=== PATIENT | male | born 1940 | race Caucasian/White ===

== ENCOUNTER 2018-03-01 12:58 | Emergency (ER) | payer MEDICARE, BC, SELFPAY ==
[2018-03-01 12:59] VITALS: BP 170/94; PULSE 72; RESP 16; TEMP 36.9; O2SAT 97; BMI 30.4
[2018-03-01] MEDS: Tetracaine/Benzocaine/Butamben 1 APPLIC TOPICAL (13:30)
[2018-03-01] MEDS: Oxymetazoline 0.05% 1 SPRAY SPRAY.BTL 2 SPRAY NASAL (13:30)
[2018-03-01 15:00] VITALS: BP 194/88; PULSE 64; RESP 18; O2SAT 98
[2018-03-01 15:27] VITALS: BP 200/90
[2018-03-01] MEDS: hydrALAZINE 20 MG/ML Vial 10 MG IV ×2 (15:31→16:12)
--- NOTE | 2018-03-01 15:48 | ED.DCSUM_ITS ---
- ER Visit Summary Date of Service: 03/01/18 Chief Complaint: Nosebleed History of Present Illness: The patient is a 77 M reports intermittent nosebleed for the last 3 days. Patient states it starts in the left. Today it was coming out of both nares. He denies any recent URI symptoms. He does take baby aspirin daily. Physical Examination: Vital signs include a blood pressure of 170/94, temperature 98.5, heart rate 72, respiratory rate 16, pulse ox 97% on room air. Patient sitting upright in bed. He has a nasal clip in place. Head and neck examination reveals small amount of blood in the posterior pharynx. Heart is regular rate and rhythm. Lung sounds are clear. Abdomen is soft nontender. Test Results: [] Emergency Department Course and Treatment: Nasal clip was removed and a cotton ball soaked in Afrin and Cetacaine was placed into the left nare. Following removal of this examination with otoscope reveals a small amount of blood along the medial wall proximally of the left nare. There is no focal bleeding site appreciated. Nasal turbinates are irritated. Right nare is clear. A 5.5 cm Rhino Rocket was placed in the left nare. Bleeding is controlled. He is able to ambulate. Blood pressure has continued to be elevated, up to 200 systolic. Patient is given 10 mg of IV hydralazine. Patient initially had blood pressure come down to the 175-180 range. He did tell the nurse that he was feeling anxious. She was given additional 10 mg of IV hydralazine and 0.5 mg p.o. Ativan. At this time systolic blood pressure is 160. To be discharged home. He is to check his blood pressure daily. He was taken off of hydrochlorothiazide recently because his blood pressures were dropping too low. If his pressures are elevated he has this medication at home he can take. Treatment Plan: Patient is to follow-up with ENT in 3 days. He will be covered with Augmentin in the meantime. Disposition: Discharge Impression: 1. Epistaxis status post nasal packing 2. Hypertension This note was generated with [employer] software. It may contain incorrect words, spelling, and punctuation that were not noted in review of the chart prior to signing ED Disposition - Plan for ED Patient: Disposition: Home or Assisted Living Chief Complaint: Nosebleed Instructions: Nosebleed Prescriptions: Amox/Clavulanate Tablet [Augmentin Tablet] 875 mg PO Q12H #6 tab Referrals: Cedric Keita MD [STAFF PHYSICIAN] - 3-5 Days Alonso Wheat MD [Primary Care Provider] - Additional Instructions: Call ENT tomorrow for appointment in 3 days.
--- NOTE | 2018-03-01 15:48 | ED.DEP ---
ED Disposition - Plan for ED Patient: Disposition: Home or Assisted Living Chief Complaint: Nosebleed Instructions: Nosebleed Prescriptions: Amox/Clavulanate Tablet [Augmentin Tablet] 875 mg PO Q12H #6 tablet Referrals: Alonso Wheat MD [Primary Care Provider] - Cedric Keita MD [STAFF PHYSICIAN] - 3-5 Days Additional Instructions: Call ENT tomorrow for appointment in 3 days.
[2018-03-01 16:11] LABS: Bedside Glucose 124 mg/dL (70-110)
[2018-03-01] MEDS: LORazepam 0.5 MG Tablet PO (16:11)
[2018-03-01 16:15] VITALS: BP 177/85
[2018-03-01 16:51] VITALS: BP 153/72; PULSE 90; RESP 14; O2SAT 98
== END 2018-03-01 16:52 | disposition home or self-care (01) ==
PROVIDERS: Emergency Provider Emergency Medicine; Family Provider Internal Medicine; PCP Internal Medicine
DX: R04.0 Epistaxis (principal); I10 Essential (primary) hypertension; C61 Malignant neoplasm of prostate; M54.9 Dorsalgia, unspecified; I42.2 Other hypertrophic cardiomyopathy; Z79.82 Long term (current) use of aspirin; Z79.899 Other long term (current) drug therapy
CPT/HCPCS: 30905; 82962; 96374; 96376; 99284; A4216

== ENCOUNTER 2018-03-06 19:15 | Emergency (ER) | payer MEDICARE, BC, SELFPAY ==
[2018-03-06 19:16] VITALS: BP 147/76; PULSE 74; RESP 20; TEMP 36.6; O2SAT 97; BMI 30.4
--- NOTE | 2018-03-06 21:15 | NURSING ---
PATIENT STATES THAT ASPRIN AND FOLIC ACID ARE ON HOLD UNTIL NOSE BLEEDING STOPS.
[2018-03-06 21:18] VITALS: BP 175/80; PULSE 67; O2SAT 95
[2018-03-06] MEDS: Mixture 30 ML Bottle 20 ML TOPICAL (22:58)
--- NOTE | 2018-03-06 23:02 | ED.VISSUMM ---
- ER Visit Summary Date of Service: 03/06/18 Chief Complaint: Nosebleed History of Present Illness: The patient is a 77 M who presents with nosebleed. This started while sitting. He states he is coughing up clots. He has minimal blood coming from the front of the nose. He was seen last Thursday and had a pack placed. He follow-up with Dr. Tipton. Dr. schwartz cauterized an area over the anterior septal region. Patient is no longer taking a baby aspirin. He is on no other anticoagulant and he is on no anticoagulant. There is no history of trauma. He denies bruising easily. He denies any problems with bleeding. He states he does have a humidifier on his furnace. He does have history of hypertension. Initial blood pressure was 147/76. Please read written note for complete detail. Physical Examination: Vital signs remarkable for elevated blood pressure 147/76. Pupils equal round reactive paradoxic muscle intact. Nares revealed blood on the left side above the turbinates. There is blood noted in the posterior pharynx. There is evidence of recent bleeding. Uvula is midline. There is no erythema or exudate of posterior pharynx. Trachea is midline. There is no stridor. There is no cervical lymphadenopathy. Patient has no petechia, purpura or bruising noted. Test Results: None Emergency Department Course and Treatment: Bleeding did not stop with pressure. The nose was anesthetized using Bossman solution. Since there is no evidence of a anterior bleed a 7.5 cm posterior Rhino Rocket was placed. He received his first dose of antibiotic in the department was discharge prescription for amoxicillin 875 mg twice a day. Case was discussed with Dr. Andrea Bansal. He asked for the patient to call on Thursday to be seen on Thursday. Treatment Plan: Outpatient follow-up with ENT and prescription for amoxicillin Disposition: Discharged home in stable improved condition Impression: Epistaxis left suspect posterior This note was generated with [employer] dictation software. It may contain incorrect words, spelling, and punctuation that were not noted in review of the chart prior to signing ED Disposition - Plan for ED Patient: Disposition: Home or Assisted Living Chief Complaint: Nosebleed Instructions: Nosebleed Prescriptions: Amoxicillin 875 mg PO BID #10 tab Referrals: Alonso Wheat MD [Primary Care Provider] - Portillo Bansal MD [STAFF PHYSICIAN] - 03/10/18 Additional Instructions: Take antibiotics until gone. Call Dr. Bansal's office on Thursday to be seen on Thursday Your prescription was electronically transmitted to [facility]
--- NOTE | 2018-03-06 23:08 | ED.DCSUM_ITS ---
- ER Visit Summary Date of Service: 03/06/18 Chief Complaint: Nosebleed History of Present Illness: The patient is a 77 M who presents with nosebleed. This started while sitting. He states he is coughing up clots. He has minimal blood coming from the front of the nose. He was seen last Thursday and had a pack placed. He follow-up with Dr. Tipton. Dr. schwartz cauterized an area over the anterior septal region. Patient is no longer taking a baby aspirin. He is on no other anticoagulant and he is on no anticoagulant. There is no history of trauma. He denies bruising easily. He denies any problems with bleeding. He states he does have a humidifier on his furnace. He does have history of hypertension. Initial blood pressure was 147/76. Please read written note for complete detail. Physical Examination: Vital signs remarkable for elevated blood pressure 147/ 76. Pupils equal round reactive paradoxic muscle intact. Nares revealed blood on the left side above the turbinates. There is blood noted in the posterior pharynx. There is evidence of recent bleeding. Uvula is midline. There is no erythema or exudate of posterior pharynx. Trachea is midline. There is no stridor. There is no cervical lymphadenopathy. Patient has no petechia, purpura or bruising noted. Test Results: None Emergency Department Course and Treatment: Bleeding did not stop with pressure. The nose was anesthetized using Bossman solution. Since there is no evidence of a anterior bleed a 7.5 cm posterior Rhino Rocket was placed. He received his first dose of antibiotic in the department was discharge prescription for amoxicillin 875 mg twice a day. Case was discussed with Dr. Andrea Bansal. He asked for the patient to call on Thursday to be seen on Thursday. Treatment Plan: Outpatient follow-up with ENT and prescription for amoxicillin Disposition: Discharged home in stable improved condition Impression: Epistaxis left suspect posterior This note was generated with [employer] dictation software. It may contain incorrect words, spelling, and punctuation that were not noted in review of the chart prior to signing ED Disposition - Plan for ED Patient: Disposition: Home or Assisted Living Chief Complaint: Nosebleed Instructions: Nosebleed Prescriptions: Amoxicillin 875 mg PO BID #10 tab Referrals: Alonso Wheat MD [Primary Care Provider] - Portillo Bansal MD [STAFF PHYSICIAN] - 03/10/18 Additional Instructions: Take antibiotics until gone. Call Dr. Bansal's office on Thursday to be seen on Thursday Your prescription was electronically transmitted to [facility]
[2018-03-06] MEDS: Amox/Clavulanate 875 MG Tablet PO (23:12)
[2018-03-06 23:13] VITALS: BP 168/83; PULSE 66; O2SAT 96
== END 2018-03-06 23:15 | disposition home or self-care (01) ==
PROVIDERS: Emergency Provider Emergency Medicine; Family Provider Internal Medicine; PCP Internal Medicine
DX: R04.0 Epistaxis (principal); I10 Essential (primary) hypertension; E78.00 Pure hypercholesterolemia, unspecified; Z79.899 Other long term (current) drug therapy
CPT/HCPCS: 30905; 99282

== ENCOUNTER → 2019-04-14 | Outpatient (CLI) | payer MEDICARE, BC, SELFPAY ==
--- NOTE | 2019-04-14 11:10 | RAD_ITS ---
STUDY: X-RAY - PELVIS AND LEFT HIP REASON FOR EXAM: Hip pain, no specific injury. TECHNIQUE: 2 views of the pelvis and hip. COMPARISON: None. FINDINGS: Normal visualized soft tissue structures. There are degenerative changes of the lumbar spine. Normal bilateral iliac wings, sacroiliac joints and visualized sacrum. Normal bilateral superior and inferior pubic rami. Normal pubic symphysis. Normal bilateral ischial tuberosities. There is a herniation pit in the left femoral neck. Normal acetabulum. There is mild joint space narrowing of the superior medial aspect of the left hip joint. RAD/HIP, UNI W/ Pelvis 2-3 Views IMPRESSION: Mild left hip arthrosis. Herniation pit in the left femoral neck. Electronically Signed: Gael Alexandre MD at 12:54 EDT Tel , Service support ,
== END | disposition home or self-care (01) ==
LOC: RAD 11:05
PROVIDERS: Family Provider Internal Medicine; PCP Internal Medicine; Referring Provider Anesthesiology Pain Medicine; Visit Provider Anesthesiology Pain Medicine
DX: M25.552 Pain in left hip (principal)
CPT/HCPCS: 73502

== ENCOUNTER → 2019-05-12 | Outpatient (CLI) | payer MEDICARE, BC, SELFPAY ==
--- NOTE | 2019-05-12 09:45 | MRI_ITS ---
STUDY: MRI LUMBAR SPINE WITHOUT CONTRAST REASON FOR EXAM: Male, 78 years old. Low back pain and bilateral leg pain TECHNIQUE: Standardized fat and water weighted pulse sequences were obtained in the sagittal and axial planes. COMPARISON: 04/02/2015 FINDINGS: Transitional anatomy is present. For the purposes of the numbering scheme used in this report, partial sacralization of L5 is assumed. T12-L1: Bulging annulus and right subarticular disc protrusion with bilateral facet hypertrophy and facet joint effusions. Moderate right lateral recess stenosis and moderate right and mild left foraminal stenoses. Normal lumbar lordosis. There is a levoscoliosis of the lumbar spine. Normal conus medullaris that terminates at the T12 level. L1-2: Bulging annulus and bilateral facet hypertrophy with minimal central canal and mild left foraminal stenoses. L2-3: Disc space narrowing and desiccation with discogenic endplate changes and anterior osteophytes. Bulging annulus and bilateral facet hypertrophy with moderate central canal stenosis, moderate to severe left lateral recess stenosis, and severe left and moderate right foraminal stenoses. There is probable mass effect on the transiting left L3 and exiting left L2 nerve roots. L3-4: Disc space narrowing and desiccation with discogenic endplate changes and anterior osteophytes. Bulging annulus and bilateral facet hypertrophy with moderate central canal and left lateral recess stenoses, and moderate bilateral foraminal stenoses. L4-5: The disc space is fused. Residual osteophyte with bilateral facet hypertrophy and mild central canal and severe bilateral foraminal stenoses. There is probable mass effect on both exiting L4 nerve roots. L5-S1: Normal endplates. Normal disc height, hydration and morphology. Normal bilateral facet joints. Normal central canal and bilateral lateral recesses. Normal bilateral intervertebral neural foramina. Normal visualized sacral ala. Normal visualized paraspinous soft tissue structures. MRI/Spine Lumbar (Routine) IMPRESSION: Interval progression of diffuse degenerative disc disease. There are severe foraminal stenoses on the left at L2-3 and bilaterally at L4-5, with mass effect on corresponding exiting nerve roots. There is severe left lateral recess stenosis at L2-3, with mass effect on the transiting left L3 nerve root. Electronically Signed: Gregorio Mcclure MD at 11:42 EDT Tel , Service support ,
== END | disposition home or self-care (01) ==
LOC: MRI 09:30
PROVIDERS: Family Provider Internal Medicine; PCP Internal Medicine; Referring Provider Anesthesiology Pain Medicine; Visit Provider Anesthesiology Pain Medicine
DX: M54.9 Dorsalgia, unspecified (principal); M79.606 Pain in leg, unspecified
CPT/HCPCS: 72148

== ENCOUNTER → 2019-12-26 16:08 | Outpatient (CLI) | payer MEDICARE, BC, SELFPAY ==
--- NOTE | 2019-12-26 16:15 | RAD_ITS ---
STUDY: X-RAY - PELVIS AND RIGHT HIP REASON FOR EXAM: Right hip pain for one week, no specific injury. TECHNIQUE: 2 views of the pelvis and hip. COMPARISON: Radiographs of the pelvis/left hip 04/14/2019. FINDINGS: Normal visualized soft tissue structures. There are degenerative changes of the lumbar spine. Normal bilateral iliac wings, sacroiliac joints and visualized sacrum. Normal bilateral superior and inferior pubic rami. Normal pubic symphysis. Normal bilateral ischial tuberosities. Normal visualized femoral head. Normal acetabulum. There is mild joint space narrowing of the right superomedial hip joint. RAD/HIP, UNI W/ Pelvis 2-3 Views IMPRESSION: Mild right hip arthrosis. Electronically Signed: Gael Alexandre MD at 15:24 EST Tel , Service support ,
== END ==
PROVIDERS: PCP Internal Medicine; Referring Provider Anesthesiology Pain Medicine; Visit Provider Anesthesiology Pain Medicine
DX: M25.551 Pain in right hip (principal)
CPT/HCPCS: 73502

== ENCOUNTER 2020-07-13 11:24 | Emergency (ER) | payer MEDICARE, BC, SELFPAY ==
[2020-07-13 11:25] VITALS: PULSE 78; RESP 22; TEMP 36.7; O2SAT 99; BMI 29.9
--- NOTE | 2020-07-13 11:31 | CT_ITS ---
STUDY: CT ABDOMEN AND PELVIS WITHOUT CONTRAST REASON FOR EXAM: Male, 79 years old. RT LOWER ABD PAIN RADIATION DOSAGE (If Supplied By Facility): CTDIvol = ( 15.71 ) mGy, DLP = ( 863.60 ) mGycm TECHNIQUE: Transaxial images were obtained from the dome of the diaphragm to the symphysis pubis without oral contrast, and without intravenous contrast. Sagittal and coronal images were reconstructed. Individualized dose optimization techniques were used for this CT. COMPARISON: None. FINDINGS: The visualized lung bases are unremarkable. The visualized portions of the heart are within normal limits. Normal liver. Normal gallbladder and extrahepatic biliary system. Normal spleen. Normal pancreas. Normal bilateral adrenal glands. 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 There is severe atrophy of the upper abdominal moiety in the right kidney. Bilateral renal cysts are noted the largest is the left kidney measures 3.9 cm. Normal visualized stomach. Normal small intestine. There are multiple colonic diverticula consistent with diverticulosis. The appendix is visualized and appears normal. There is diffuse atherosclerotic calcification of the abdominal aorta, without a demonstrated aneurysm. Normal inferior vena cava. Normal retroperitoneum. Normal urinary bladder. There is bilateral inguinal hernias containing adipose tissue. There are diffuse degenerative changes of the visualized lumbar spine. 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 There is severe atrophy of the upper abdominal moiety in the right kidney. Bilateral renal cysts are noted the largest is the left kidney measures 3.9 cm. Colon diverticulosis. Electronically Signed: Xavi Mosley, at 12:23 EDT Tel , Service support ,
[2020-07-13 11:37] LABS: Absolute Lymphocyte Count 1.35 X10^3/uL (0.83-4.51); Absolute Neutrophil Count 4.3 X10^3/uL (2.0-7.7); Basophil# 0.03 X10^3/uL; Basophil% 0.5 % (0-1); Eosinophils% 1.6 % (0-5); Hematocrit 47.4 % (40-54); Hemoglobin 15.9 g/dL (13.0-16.5); Lymphocyte # 1.35 X10^3/ul (4.0); Lymphocyte % 21.5 % (19-41); Mean Corp Hgb Conc 33.5 g/dL (32-36); Mean Corpuscular Hgb 31.5 pg (27.0-32.0); Mean Corpuscular Volume 93.9 fL (80-94); Mean Platelet Vol. 10.5 fl (6.2-12.0); Monocyte# 0.51 X10^3/uL; Monocyte% 8.1 % (0-10); NRBC Flagged by Analyzer 0 % (0-5); Neutrophil # 4.26 X10^3/uL (2.7-7.7); Neutrophil % 67.8 % (47-70); Platelet Count 163 K/mm3 (150-450); RBC Distribution Width CV 13.1 % (11.6-14.6); RBC Distribution Width SD 45.1 fl (35.1-43.9); Red Blood Count 5.05 M/mm3 (4.6-6.2); White Blood Count 6.3 K/mm3 (4.4-11.0)
--- NOTE | 2020-07-13 11:37 | ED.DCSUM_ITS ---
History of Present Illness Informant: Patient, Significant Other - Abdominal Pain/Flank Pain Onset: Today Context: Sudden Onset Timing: Continuous Quality: Sharp, Stabbing Location: RLQ, Right Flank Current Severity: Severe Maximum Severity: Severe Worsened by: Nothing Relieved by: Nothing, Remaining Still - Nausea/Vomiting/Emesis GI Symptom: Nausea. Negative for: Vomiting Onset: Today - Diarrhea/Melena/Hematochezia GI Symptom: Negative for: Diarrhea, Melena, Hematochezia Associated Symptoms: Negative for: Dysuria, Frequency, Hematuria, Urgency Narrative: 79-year-old male presents to the emergency department with right lower quadrant abdominal pain and right flank pain. Started suddenly just under an hour ago. Is sharp and stabbing. He gets intermittent waves of severe pain but it is constant. He denies history of similar symptoms. He is not having back pain. He has no urinary symptoms. He has nausea without vomiting. No diarrhea melena or hematochezia. No constipation. No chest pain no shortness of breath no lightheadedness or diaphoresis. No weakness or paresthesias of the lower extremities. No trauma. No loss of bowel or bladder function. Denies history of kidney stone. Prior similar symptoms: No Recent Illness/Hospitalization: No <Kyle Johnson - Last Filed: 07/13/20 14:15> <Lamonte Bills - Last Filed: 07/13/20 14:22> Chief Complaint: Abd Pain Past Medical History Prior records reviewed: Yes Past Medical History: - - Cardiomyopathy, hypertension, hyperlipidemia, type 2 diabetes mellitus Surgical History: cholecystectomy Lives: With Family Smoking Status: Never smoker <Kyle Johnson - Last Filed: 07/13/20 14:15> <Lamonte Bills - Last Filed: 07/13/20 14:22> - Allergies and Home Meds Allergies/Adverse Reactions: Allergies atorvastatin [From Lipitor] Allergy (Verified 07/13/20 11:25) Itching ezetimibe [From Vytorin] Allergy (Verified 07/13/20 11:25) Itching hydrocodone [From Vicodin] Allergy (Verified 07/13/20 11:25) Itching simvastatin [From Vytorin] Allergy (Verified 07/13/20 11:25) Itching Xsakbky-Jlx-Snt Reductase Inhibitor Allergy (Verified 07/13/20 11:25) pain in muscles tramadol Allergy (Verified 07/13/20 11:25) Itching Primary Care Physician: Alonso Wheat MD [Primary Care Provider] - 3-5 Days Review of Systems All systems negative except as indicated General: Denies: Chills, Fever, Sweats Eyes: Denies: Visual changes - bilaterally, Diplopia ENT: Denies: Rhinorrhea, Sore throat Cardiovascular: Denies: Chest pain, Palpitations Respiratory: Denies: Dyspnea, Cough, Dyspnea on exertion Gastrointestinal: Reports: Abdominal pain, Nausea. Denies: Vomiting, Diarrhea, Melena, Hematochezia Genitourinary: Denies: Dysuria, Hematuria, Frequency Musculoskeletal: Denies: Myalgias, Arthralgias, Neck pain, Back pain, Swelling, Extremity Pain Skin: Denies: Rash, Wounds Neurological: Denies: Headache, Weakness, Parasthesia, Numbness <Kyle Johnson - Last Filed: 07/13/20 14:15> Physical Exam Vital Signs/Narrative: Vital Signs Temp Pulse Resp Pulse Ox 07/13/20 11:25 98.1 F 78 22 H 99 Inital Vital Signs reviewed: Yes General: Well nourished, Well developed, No Acute Distress Head: Normocephalic, Atraumatic Eyes: Perrl, EOMI ENT: Moist mucous membranes, No rhinorrhea Neck: Supple, Nontender Cardiovascular: Regular rate, Regular rhythm, No murmurs Respiratory: No distress, CTA bilaterally, Chest nontender Abdomen: Soft, Nontender, Nondistended, Normal bowel sounds Back: Nontender, Normal Inspection. Negative for: CVA tenderness Extremities: Nontender, No edema, - - Normal pulses of all 4 extremities. Normal sensation all 4 extremities. 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 There is severe atrophy of the upper abdominal moiety in the right kidney. Bilateral renal cysts are noted the largest is the left kidney measures 3.9 cm. Colon diverticulosis. Electronically Signed: Xavi Mosley, at 12:23 EDT Tel , Service support , ADDENDUM: 07/13/20 1243 07/13/20 11:31 Abdomen/Pelvis without Cont [CT] Stat Laboratory Results 07/13/20 07/13/20 07/13/20 11:30 11:30 11:30 WBC 6.3 RBC 5.05 Hgb 15.9 Hct 47.4 MCV 93.9 MCH 31.5 MCHC 33.5 RDW Std Deviation 45.1 H RDW Coeff of Bebeto 13.1 Plt Count 163 MPV 10.5 Immature Gran % (Auto) 0.500 Neut % (Auto) 67.8 Lymph % (Auto) 21.5 Bailey % (Auto) 8.1 Eos % (Auto) 1.6 Baso % (Auto) 0.5 Absolute Neuts (auto) 4.3 Absolute Lymphs (auto) 1.35 Nucleated RBC % 0 Sodium 140 Potassium 3.9 Chloride 107 Carbon Dioxide 29.0 Anion Gap 4 L BUN 12 Creatinine 1.04 Estim Creat Clear Calc 58.49 Est GFR (MDRD) Af Amer 88 Est GFR (MDRD) Non-Af 73 BUN/Creatinine Ratio 11.5 Glucose 159 H Calcium 9.5 Total Bilirubin 0.70 AST 15 ALT 29 Alkaline Phosphatase 84 Total Protein 7.7 Albumin 4.1 Globulin 3.6 Albumin/Globulin Ratio 1.1 Lipase 53 L Urine Color Urine Clarity Urine pH Ur Specific [place] Urine Protein Urine Glucose (UA) Urine Ketones Urine Occult Blood Urine Nitrite Urine Bilirubin Urine Urobilinogen Ur Leukocyte Esterase Urine RBC Urine WBC Ur Squamous Epith Cells Urine Bacteria Urine Mucus 07/13/20 13:25 WBC RBC Hgb Hct MCV MCH MCHC RDW Std Deviation RDW Coeff of Bebeto Plt Count MPV Immature Gran % (Auto) Neut % (Auto) Lymph % (Auto) Bailey % (Auto) Eos % (Auto) Baso % (Auto) Absolute Neuts (auto) Absolute Lymphs (auto) Nucleated RBC % Sodium Potassium Chloride Carbon Dioxide Anion Gap BUN Creatinine Estim Creat Clear Calc Est GFR (MDRD) Af Amer Est GFR (MDRD) Non-Af BUN/Creatinine Ratio Glucose Calcium Total Bilirubin AST ALT Alkaline Phosphatase Total Protein Albumin Globulin Albumin/Globulin Ratio Lipase Urine Color Yellow Urine Clarity Clear Urine pH 7.0 Ur Specific [place] 1.010 Urine Protein Negative Urine Glucose (UA) Normal Urine Ketones Negative Urine Occult Blood Negative Urine Nitrite Negative Urine Bilirubin Negative Urine Urobilinogen Normal Ur Leukocyte Esterase Negative Urine RBC 0 SEEN Urine WBC 0 SEEN Ur Squamous Epith Cells 0 SEEN Urine Bacteria 0 SEEN Urine Mucus 0 SEEN - Medical Decision Making Patient was initially treated with fluids morphine and Zofran. CBC CMP and lipase were obtained all are unremarkable. Urinalysis negative. CT scan abdomen and pelvis shows no acute findings. Patient continued to have pain was given a second dose of morphine. Discussed with patient obtaining a second CT scan this time with IV contrast. This was ordered initially however radiologist contacted me to stating that he did not feel this was needed. Discussed with him we were concerned for possible renal infarct he stated that he did not see a renal infarct on the noncontrast scan and was comfortable adding a addendum that he did not see 1 to his read from the noncontrast scan. Further discussion with patient, he has constipation and has been on [place] for a few months for his back he has been only having small hard bowel movements every 3 to 4 days. We do feel his symptoms could be from constipation. He has no pain after 2 doses of morphine. Repeat abdominal exam soft nontender and able to tolerate by mouth. Will discharge home with magnesium citrate and Colace and have him follow-up with his doctor on Thursday <Kyle Johnson - Last Filed: 07/13/20 14:15> - Medical Decision Making Patient developed severe pain in the right lower quadrant approximately 1 hour prior to arrival in the emergency department. [facility] labs were negative and a CT scan was negative. While reviewing the CT he did have a large amount of stool in the right colon particularly the right lower colon. He has been having constipation most likely due to [place] that he has been taking. When to give him some magnesium citrate and some Colace. Return if worsening or concerns. I performed a history and physical examination of the patient and discussed management plan with the physician medical assistant dermatology. I reviewed the physician medical assistant dermatology's note and agree with the documented findings and plan of care. Lamonte Bills DO, MS <Lamonte Bills - Last Filed: 07/13/20 14:22> ED Disposition <Kyle Johnson - Last Filed: 07/13/20 14:15> <Lamonte Bills - Last Filed: 07/13/20 14:22> - Plan for ED Patient: Disposition: Home or Assisted Living Diagnosis: Abdominal pain, Constipation Instructions: ED Constipation Prescriptions: Magnesium Citrate [Citrate Of Magnesia] 300 ml PO X1 #1 bottle Transmission Status: Received by [id number] Docusate Sodium [Colace] 100 mg PO DAILY #20 cap Transmission Status: Received by [id number] Referrals: Alonso Wheat MD [Primary Care Provider] - 3-5 Days
[2020-07-13] MEDS: Morphine 4 MG/ML Syringe IV ×2 (11:38→13:13)
[2020-07-13] MEDS: 0.9% Normal Saline 1,000 ML 250 ML IV (11:38)
[2020-07-13] MEDS: Ondansetron 4 MG/2 ML Vial IV ×2 (11:38→13:36)
[2020-07-13 11:56] LABS: ALB/GLOB Ratio 1.1 RATIO (0.9-2.4); AST(SGOT) 15 U/L (15-37); Alanine Aminotransfer ALT/SGPT 29 U/L (16-61); Albumin, Serum 4.1 g/dL (3.2-5.0); Alkaline Phosphatase 84 U/L (45-117); Anion Gap 4 (5-15); BUN 12 mg/dL (7-18); BUN/Creat Ratio 11.5 RATIO (10-20); Calcium,Total 9.5 mg/dL (8.5-10.1); Chloride 107 mmol/L (98-107); Creatinine, Serum 1.04 mg/dL (0.70-1.30); EST Glomerular Filtration Rate 73 mL/min (>60); Est Glom Filt Rate - Afr Amer 88 mL/min (>60); Estimated Creatinine Clearance 58.49 ml/min; Globulin 3.6 g/dL (2.2-4.2); Glucose 159 mg/dL (74-106); Potassium 3.9 mmol/L (3.5-5.1); Protein, Total 7.7 g/dL (6.4-8.2); Sodium Level 140 mmol/L (136-145)
[2020-07-13 13:34] LABS: Bacteria 0 SEEN /hpf (None Seen); Mucous, Urine 0 SEEN /hpf (<or=2+); Red Blood Cells-Urine 0 SEEN /hpf (0-5); Squamous Epithelial Cells - UA 0 SEEN /hpf (0-5); White Blood Cells 0 SEEN /hpf (0-5)
[2020-07-13 13:36] LABS: Color, Urine Yellow (Yellow); Glucose, Dipstick Normal (Normal); Ketone-Dipstick Negative (Negative); Leukocyte Esterase-Dipstick Negative /ul (Negative); Nitrite-Dipstick Negative (Negative); Occult Blood-Urine Negative /ul (Negative); Protein-Dipstick Negative (Negative); Urine Bilirubin Dipstick Negative (Negative); Urine Clarity Clear (Clear); Urine Urobilinogen Normal (Normal)
[2020-07-13 13:37] VITALS: BP 170/85; PULSE 68; RESP 18; O2SAT 96
[2020-07-13 13:39] LABS: Lipase 53 U/L (73-393)
[2020-07-13 14:22] VITALS: BP 160/85; PULSE 74; RESP 18; O2SAT 96
== END 2020-07-13 14:24 | disposition home or self-care (01) ==
PROVIDERS: Emergency Medicine; Emergency Provider Physician Assistant Medical; PCP Internal Medicine
DX: R10.31 Right lower quadrant pain (principal); K59.00 Constipation, unspecified; E11.9 Type 2 diabetes mellitus without complications; I10 Essential (primary) hypertension; E78.5 Hyperlipidemia, unspecified; Z79.82 Long term (current) use of aspirin; Z79.84 Long term (current) use of oral hypoglycemic drugs; Z79.899 Other long term (current) drug therapy
CPT/HCPCS: 74176; 80053; 81001; 83690; 85025; 96374; 96375; 96376; 99283; A4216; J2405

== ENCOUNTER 2020-07-16 11:04 | Observation (INO) | payer MEDICARE, BC, SELFPAY ==
[2020-07-16 11:06] VITALS: BP 183/90; PULSE 82; PULSE 83; RESP 17; TEMP 36.6; O2SAT 96; O2SAT 98; BMI 30.4
--- NOTE | 2020-07-16 11:28 | CT_ITS ---
STUDY: CT ABDOMEN AND PELVIS WITHOUT CONTRAST REASON FOR EXAM: Male, 79 years old. LOWER BACK PAIN RADIATING TO ABDOMEN and rt flank pain. Hx of HTN-rx controlled and prostate cancer with radiation treatments. Delays included in exam RADIATION DOSAGE (If Supplied By Facility): CTDIvol = ( 18.15 ) mGy, DLP = ( 2089.60 ) mGycm TECHNIQUE: Transaxial images were obtained from the dome of the diaphragm to the symphysis pubis without oral contrast, and without intravenous contrast. Sagittal and coronal images were reconstructed. Individualized dose optimization techniques were used for this CT. COMPARISON: Comparison is made with prior study dated 07/13/2020. FINDINGS: Stable mild increased markings at the lung bases suggestive of bibasilar scarring. Coronary artery calcification. There is decreased attenuation of the liver consistent with steatosis. Normal gallbladder and extrahepatic biliary system. Normal spleen. Normal pancreas. Normal bilateral adrenal glands. 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 Stable 2.6 cm cyst in the upper pole of the left kidney as well as a 3.8 cm cyst in the anterior medial portion of the midportion of the left kidney. Normal visualized stomach. Normal small intestine. There are multiple colonic diverticula consistent with diverticulosis. Surgical anastomosis is seen in the region of the rectum. The appendix is visualized and appears normal. There is diffuse atherosclerotic calcification of the abdominal aorta, without a demonstrated aneurysm. Normal inferior vena cava. Normal retroperitoneum. Normal urinary bladder. There is hypertrophy of the vas deferens bilaterally. The prostate measures 3.9 cm x 5 cm. Small bilateral inguinal hernias containing fat right greater than left. There are diffuse degenerative changes of the visualized lumbar spine. There is loss of the normal lumbar lordosis. 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 There has been no change. Electronically Signed: Willy Villaseñor, at 12:31 EDT , Service support ,
[2020-07-16] MEDS: 0.9% Normal Saline 1,000 ML 125 ML IV (11:40)
[2020-07-16] MEDS: Ondansetron 4 MG/2 ML Vial IV (11:41)
[2020-07-16] MEDS: Morphine 4 MG/ML Syringe IV ×2 (11:41→14:30)
[2020-07-16 11:53] LABS: Absolute Lymphocyte Count 0.78 X10^3/uL (0.83-4.51); Absolute Neutrophil Count 4.2 X10^3/uL (2.0-7.7); Basophil# 0.02 X10^3/uL; Basophil% 0.4 % (0-1); Eosinophil# 0.05 X10^3/uL; Eosinophils% 0.9 % (0-5); Hematocrit 45.4 % (40-54); Hemoglobin 15.4 g/dL (13.0-16.5); Lymphocyte # 0.78 X10^3/ul (4.0); Lymphocyte % 14.1 % (19-41); Mean Corp Hgb Conc 33.9 g/dL (32-36); Mean Corpuscular Hgb 31.6 pg (27.0-32.0); Mean Corpuscular Volume 93.2 fL (80-94); Mean Platelet Vol. 10.1 fl (6.2-12.0); Monocyte# 0.46 X10^3/uL; Monocyte% 8.3 % (0-10); NRBC Flagged by Analyzer 0 % (0-5); Neutrophil # 4.19 X10^3/uL (2.7-7.7); Neutrophil % 75.8 % (47-70); Platelet Count 158 K/mm3 (150-450); RBC Distribution Width SD 44.2 fl (35.1-43.9); Red Blood Count 4.87 M/mm3 (4.6-6.2); White Blood Count 5.5 K/mm3 (4.4-11.0)
--- NOTE | 2020-07-16 12:00 | ED.DCSUM_ITS ---
- ER Visit Summary Date of Service: 07/16/20 Chief Complaint: Back pain History of Present Illness: The patient is a [address] Wheat and Dr. Marques. He reports that he has right-sided back pain that is chronic. However, the pain became much worse 3 days ago. He denies any trauma. No fall, MVA, or change in activity. He does report he has had similar symptoms previously, but never this severe. Describes the pain as an aching pain that is 10 out of 10 at worst and 4-10 currently. Is worsened by movement or standing. Is taking [place] and gabapentin with no relief. He denies any radiation to his legs. No numbness or weakness in his legs. No problems with his bowels or his bladder. No groin numbness. He denies any abdominal pain. No dysuria or frequency. Patient reports that he has had an extensive evaluation of his right hip and they do not think that it is coming from that. Physical Examination: Vitals: Stable. Afebrile. General: A&O x 3. NAD. Cardiovascular exam: Regular rate and rhythm, 2 out of 6 systolic murmur. Respiratory exam: Clear to auscultation bilaterally. No wheezes or stridor. Abdominal exam: Soft, nontender, nondistended, normal bowel sounds. No peritoneal signs. Back: Moderate tenderness palpation is diffuse over the area between the lower ribs on the right and his pelvic brim. No point tenderness. Negative straight leg bilaterally. 5/5 DF, PF, EHL bilaterally. Normal sensation to light touch throughout. Extremity: Mild tenderness palpation of the right greater trochanter. No pain with internal or external rotation of his hip. No clubbing, cyanosis, or edema. Test Results: CBC shows a segment neutrophils 76 lymphocytes of 14. Chem-7 shows a glucose of 136. 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 There has been no change. Electronically Signed: Willy Villaseñor, at 12:31 EDT , Service support , Emergency Department Course and Treatment: Patient had an IV placed. He is given morphine and Zofran IV. He is resting more comfortably. However, he reports that he is unable to get up and ambulate or even ride home. Treatment Plan: Patient will be discussed the hospitalist admitted for further evaluation treatment. Disposition: Admitted in stable condition. Impression: 1. Intractable back pain. 2. Inability to ambulate. This note was generated with [employer] dictation software. It may contain incorrect words, spelling, and punctuation that were not noted in review of the chart prior to signing ED Disposition - Plan for ED Patient: Referrals: Alonso Wheat MD [Primary Care Provider] -
[2020-07-16 12:02] LABS: Anion Gap 7 (5-15); BUN 11 mg/dL (7-18); BUN/Creat Ratio 11.8 RATIO (10-20); Chloride 104 mmol/L (98-107); Creatinine, Serum 0.93 mg/dL (0.70-1.30); EST Glomerular Filtration Rate 83 mL/min (>60); Est Glom Filt Rate - Afr Amer 100 mL/min (>60); Estimated Creatinine Clearance 65.41 ml/min; Glucose 136 mg/dL (74-106); Potassium 3.8 mmol/L (3.5-5.1); Sodium Level 140 mmol/L (136-145)
[2020-07-16 13:05] VITALS: BP 144/82; PULSE 81; RESP 14; O2SAT 95
--- NOTE | 2020-07-16 13:08 | PCM.HP.STD ---
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: without local intermodal truck driver use Diabetes mellitus complication status: with other specified complication Qualified Code(s): E11.69 - Type 2 diabetes mellitus with other specified complication (5) GERD (gastroesophageal reflux disease) Status: Chronic Qualifiers: Esophagitis presence: esophagitis presence not specified Qualified Code(s): K21.9 - Gastro-esophageal reflux disease without esophagitis (6) Obesity (BMI 30.0-34.9) Status: Chronic (7) Hypertrophic cardiomyopathy Status: Chronic History of Present Illness Date of Admission: 07/16/20 Chief Complaint: Intractable back pain The patient is a 79 y/o M w/ PMHx: HTN, HLD, Diabetes mellitus type II, Hypertrophic Cardiomyopathy, Hx Prostate CA s/p radiation, Chronic back pain following with Dr. Marques who presents to the [facility] ED on 07/16/20 with history of acute on chronic intractable right paraspinous back pain starting approximately 4 days prior on Thursday which was rather busy for him noting that he had gone to [facility] and then ate at [employer]'s sitting in the car outside followed by an attempt to drive out of town with his but had significant onset of diffuse right-sided severe 10 out of 10 constant sharp lower back pain focally on the right low back but with ambulatory attempts shooting pain into the groin region concurrently with ED evaluation following onset with improvement following ED interventions including bowel regimen as he had also been constipated but return of significant diffuse debility over the last 2 days with near bedbound status and significant debility. Prior ED visit patient did have a CT without contrast which demonstrated no acute findings and labs as well as urinalysis were unremarkable at that time. Work-up in the ED included T 97.8, heart rate 82, BP 183/90, respiratory rate 17, 96% room air, CBC with WC 5.5, hemoglobin 15.4, platelet 158 with no significant left shift but noted mild lymphopenia, BMP with glucose 136 otherwise unremarkable, CT abdomen and pelvis with a duplication of the right kidney with atrophy and hydronephrosis of the upper pole moiety of the right kidney with no change from previous and specifically noted degenerative diffuse changes of the visualized lumbar spine with loss of normal lumbar lordosis. In the ED patient ministered Zofran, morphine and normal saline. Past Medical History Past Medical History (Chronic Problems): Chronic Problems HTN (hypertension) (Chronic) HLD (hyperlipidemia) (Chronic) Diabetes mellitus, type II (Chronic) GERD (gastroesophageal reflux disease) (Chronic) Obesity (BMI 30.0-34.9) (Chronic) Hypertrophic cardiomyopathy (Chronic) Allergies atorvastatin [From Lipitor] Allergy (Verified 07/16/20 11:06) Itching ezetimibe [From Vytorin] Allergy (Verified 07/16/20 11:06) Itching hydrocodone [From Vicodin] Allergy (Verified 07/16/20 11:06) Itching simvastatin [From Vytorin] Allergy (Verified 07/16/20 11:06) Itching Dylbzpm-Hag-Tgb Reductase Inhibitor Allergy (Verified 07/16/20 11:06) pain in muscles tramadol Allergy (Verified 07/16/20 11:06) Itching Home Medications: Ambulatory Orders Medication Instructions Recorded Aspirin E.C. [Ecotrin] 81 mg PO DAILY@0800 08/11/17 Atenolol [Tenormin] 50 mg PO BID 08/11/17 Lovastatin [Mevacor] 80 mg PO QHS 08/11/17 Multivit-Min/FA/Lycopen/Lutein 1 each PO DAILY 08/11/17 [Centrum Silver Tablet] Omeprazole [Prilosec] 40 mg PO BID 08/11/17 Quinapril HCl [Accupril] 40 mg PO DAILY 08/11/17 Amlodipine [Norvasc] 5 mg PO DAILY 07/13/20 Calcium Carbonate/Vitamin D3 1 ea PO DAILY 07/13/20 [Calcium 600-Vit D3 200 Tablet] Docusate Sodium [Colace] 100 mg PO DAILY #20 cap 07/13/20 Furosemide [Lasix] 20 mg PO DAILY 07/13/20 Gabapentin 600 mg PO TID 07/13/20 Hydrocodone/Acetaminophen [[place] 1 ea PO BID 07/13/20 7.5-325 Tablet] Meloxicam 7.5 mg PO DAILY 07/13/20 Metformin HCl [Metformin HCl ER] 500 mg PO BID 07/13/20 Polyethylene Glycol 3350 [Miralax] 17 gm PO DAILY 07/13/20 Surgical History: - - Cataract surgery, colonoscopy with ablation of rectal AVMs. Psychiatric History: No pertinent psych hx Lives: Spouse/ Significant Other Smoking Status: Never smoker Tobacco Use: Non-smoker Alcohol: None Drugs: None - *Family History Maternal History Items: Cancer - Patient notes a maternal family history of leukemia. Paternal History Items: Cancer - Patient notes paternal family history of lung cancer with significant history of tobacco use and coal mining. Review of Systems Constitutional: Reports: Anorexia, Malaise, Weakness, Fatigue. Denies: Chills, Fever, Weight Change HEENT: Denies: Head Aches, Sinus Congestion, Sinus Drainage Cardiovascular: Denies: Chest Pain, Palpitations Respiratory: Denies: Cough, Shortness of breath at rest, Sputum production Gastrointestinal: Reports: Constipation. Denies: Abdominal Pain, Nausea, Vomiting Genitourinary: Denies: Dysuria Musculoskeletal: Reports: Back Pain, Joint Pain. Denies: Joint Tenderness Skin: Denies: Rash, Wounds Neurological: Denies: Balance problems - Secondary to pain, debility., Focal weakness, Numbness, Tingling Psychiatric: Denies: Anxiety, Depression, Homicidal Ideations, Suicidal Ideations Hematologic/ Lymphatic: Denies: Easy Bruising, Easy Bleeding VTE Information - Inpt Only VTE Present on Admission: No VTE Mechan Device Prophylaxis: SCD's VTE Pharm Prophylaxis ordered?: Yes Patient Problems: Active and Suspected Problems Intractable low back pain (Acute) Subjective: Seated upright in the ED bed, uncomfortable appearing, fatigued appearing. Objective: Physical Examination: General: awake, alert, oriented x 3 and cooperative, seated upright in the ED bed, uncomfortable appearing, fatigued appearing. Skin: normal color, turgor, no icterus, cyanosis. HEENT: AT/NC, EOMI, PERRLA, moderately dry MM, no carotid bruits or JVD noted. Lungs: CTA bilaterally, moderate effort, moderate decrease BL bases, no rales, ronchi or wheezing. Heart: Regular rate and rhythm; no gallop, rub audible. Abdomen: soft, obese, NTTP, ND, moderately hyperactive BS, no HSM. Extremities: no cyanosis, clubbing, or edema, discomfort noted with positive straight leg raise primarily right lower extremity to the right back. Neurological: patient awake, alert, oriented x 3; cognitive function intact; pupils equally reactive to light and accomodation; cranial nerves II-XII grossly normal, moving all 4 extremities but limitations and significant onset intractable worsened right lower back pain with movements, strength severely will decrease secondary to acute presentation, no focal specific deficits noted. Psychiatric: affect appears fatigued and uncomfortable, no acute evidence of depressive or anxiety feelings. - Physical Exam Vitals/I&O's: Vital Signs Temp Pulse Resp BP Pulse Ox 97.8 F 83 17 183/90 H 98 07/16/20 11:06 07/16/20 11:06 07/16/20 11:06 07/16/20 11:06 07/16/20 11:06 Oxygen Delivery Method Room Air Weight: 211 lb 13.828 oz Body Mass Index (BMI) 30.4 Laboratory Results 07/16/20 11:40: WBC 5.5, RBC 4.87, Hgb 15.4, Hct 45.4, MCV 93.2, MCH 31.6, MCHC 33.9, RDW Std Deviation 44.2 H, RDW Coeff of [place] 13.0, Plt Count 158, MPV 10.1, Immature Gran % (Auto) 0.500, Neut % (Auto) 75.8 H, Lymph % (Auto) 14.1 L, [place] % (Auto) 8.3, Eos % (Auto) 0.9, Baso % (Auto) 0.4, Absolute Neuts (auto) 4.2, Absolute Lymphs (auto) 0.78 L, Nucleated RBC % 0 07/16/20 11:40: Sodium 140, Potassium 3.8, Chloride 104, Carbon Dioxide 29.0, Anion Gap 7, BUN 11, Creatinine 0.93, Estim Creat Clear Calc 65.41, Est GFR (MDRD) Af Amer 100, Est GFR (MDRD) Non-Af 83, BUN/Creatinine Ratio 11.8, Glucose 136 H, Calcium 9.0 Current Medications Sodium Chloride () 1,000 mls @ 125 mls/hr IV .Q8H YOLA Last Admin: 07/16/20 11:40 Dose: 125 mls/hr Documented by: Assessment/Plan All Active Problems Intractable low back pain (Acute) The patient is a 79 y/o M w/ PMHx: HTN, HLD, Diabetes mellitus type II, Hypertrophic Cardiomyopathy, Hx Prostate CA s/p radiation, Chronic back pain following with Dr. Marques who presents to the [facility] ED on 07/16/20 with history of acute on chronic intractable right paraspinous back pain starting approximately 4 days prior on Thursday which was rather busy for him noting that [facility] [employer] and then ate at [employer]'s sitting in the car outside followed by an attempt to drive out of town with his but had significant onset of diffuse right-sided severe 10 out of 10 constant sharp lower back pain. 1. Acute on Chronic Intractable Right Hip and Lumbar Back Pain: CT abdomen and pelvis with a duplication of the right kidney with atrophy and hydronephrosis of the upper pole moiety of the right kidney with no change from previous and specifically noted degenerative diffuse changes of the visualized lumbar spine with loss of normal lumbar lordosis. Will admit to [facility], maintain on fall precautions, frequent positioning, initiate medrol dose pack with close BS monitoring, scheduled toradol low dose q 8 hours, increase gabapentin to 800 mg TID, PRN narcotic po/IV pain regimen, tizanadine low dose scheduled x 1 now then transition to PRN, anti-emetics, bowel regimen given history of constipation. Will consult PT and OT for evaluation as well as CM for placement if needed. May need to consult Dr. Marques for injection as routinely following with him if pain not improving. Given noted extensive prior hip work-up at [facility] will defer additional imaging. Defer repeat UA as performed 3 days prior and unremarkable. 2. Diabetes mellitus type II: Hold oral home regimen, ADA diet, accu checks w/ ISS. 3. Hypertension: Continue home regimen including Norvasc, atenolol, Lasix, quinapril with hold parameters, PRN hydralazine. 4. Hyperlipidemia: Continue home statin regimen. 5. Hypertrophic Cardiomyopathy: Continue patient home aspirin, atenolol, quinapril, Lasix regimen with hold parameters. No recent echocardiogram noted in [facility] history. 6. GERD: We will continue patient home Prilosec regimen. 7. Hx Prostate CA: Remission, s/p radiation treatment, encouraged continued outpatient urology/oncology follow-up. 8. Obesity: Weight loss and lifestyle changes encouraged. 9. DVT prophylaxis: SCDs, Lovenox. 10. CODE status: Patient JOCELYNN is his who is present and living will is not currently in place but encouraged them to consider setting this up given their age and patient's comorbidities. Discussed CODE status at length including difference between FULL code, DNR-CCA and DNR-CC status. Following discussions about the differences in these status, requested full CODE STATUS. Advanced Care Planning Face to Face Time: 16 minutes. OBSV E&M: 94116 Initial observation care L3 Procedures: 92452 Advncd Care Plan 30 Min
--- NOTE | 2020-07-16 13:15 | NURSING ---
med surg obs white intractable back pain
[2020-07-16 14:01] VITALS: BP 129/66; PULSE 83; RESP 20; TEMP 37.1; O2SAT 96
[2020-07-16 15:34] VITALS: BP 149/79; PULSE 70; RESP 16; TEMP 37.2; O2SAT 95; BMI 29.4
[2020-07-16 15:49] LABS: Magnesium 2.3 mg/dL (1.6-2.6)
[2020-07-16 15:56] VITALS: BMI 29.5
[2020-07-16 17:15] LABS: Bedside Glucose 125 mg/dL (70-110)
[2020-07-16] MEDS: 0.9% Normal Saline 1,000 ML 100 ML IV (17:16)
[2020-07-16] MEDS: amLODIPine 5 MG Tablet PO (17:18)
[2020-07-16] MEDS: Atenolol 50 MG Tablet PO (17:18)
[2020-07-16] MEDS: Furosemide 20 MG Tablet PO (17:19)
[2020-07-16] MEDS: Ketorolac 15 MG/ML Vial IV ×2 (17:19→23:50)
[2020-07-16] MEDS: Gabapentin 800 MG Tablet PO (17:20)
[2020-07-16] MEDS: MethylPREDNISolone DosePak 4 MG BOX PO ×2 (17:21→21:30)
[2020-07-16] MEDS: 0.9% Saline Lock 10 ML Syringe IV ×2 (17:25→23:50)
[2020-07-16] MEDS: tiZANidine HCl 2 MG Tablet PO (17:35)
[2020-07-16 20:29] VITALS: BP 132/70; PULSE 68; RESP 18; TEMP 37; O2SAT 97
[2020-07-16] MEDS: Pantoprazole Sodium 40 MG Tablet PO (21:31)
[2020-07-16] MEDS: Insulin Lispro 100 UNIT/ML INSULN.PEN SC (21:35)
[2020-07-16 21:45] LABS: Bedside Glucose 193 mg/dL (70-110)
[2020-07-17 07:19] LABS: AST(SGOT) 18 U/L (15-37); Alanine Aminotransfer ALT/SGPT 27 U/L (16-61); Albumin, Serum 3.1 g/dL (3.2-5.0); Alkaline Phosphatase 66 U/L (45-117); Anion Gap 4 (5-15); BUN 15 mg/dL (7-18); BUN/Creat Ratio 16.1 RATIO (10-20); Calcium,Total 8.4 mg/dL (8.5-10.1); Chloride 108 mmol/L (98-107); Creatinine, Serum 0.93 mg/dL (0.70-1.30); EST Glomerular Filtration Rate 83 mL/min (>60); Est Glom Filt Rate - Afr Amer 100 mL/min (>60); Estimated Creatinine Clearance 65.41 ml/min; Globulin 3.2 g/dL (2.2-4.2); Glucose 142 mg/dL (74-106); Potassium 4.1 mmol/L (3.5-5.1); Protein, Total 6.3 g/dL (6.4-8.2); Sodium Level 139 mmol/L (136-145)
[2020-07-17 07:40] VITALS: BP 143/75; PULSE 73; RESP 16; TEMP 36.6; O2SAT 97
[2020-07-17 07:40] LABS: Differential Comment MANUAL DIFF; Lymphocyte 15 % (19-41); Monocyte 4 % (0-10); Neutrophil-Segmented 81 % (47-70)
[2020-07-17 07:41] LABS: Platelet Estimate ADEQUATE (ADEQ); Red Cell Morphology NORM C+C NORMAL (NORM C&C)
[2020-07-17] MEDS: Aspirin E.C. 81 MG Tablet PO (07:50)
[2020-07-17] MEDS: MethylPREDNISolone DosePak 4 MG BOX PO ×3 (07:51→16:28)
[2020-07-17] MEDS: Gabapentin 800 MG Tablet PO ×3 (07:53→16:28)
[2020-07-17] MEDS: Ketorolac 15 MG/ML Vial IV (07:53)
--- NOTE | 2020-07-17 08:31 | MRI_ITS ---
STUDY: MRI RIGHT HIP REASON FOR EXAM: Right hip pain and back pain. TECHNIQUE: Standardized fat and water weighted pulse sequences were obtained in all 3 orthogonal planes. COMPARISON: Radiographs 12/26/2019. FINDINGS: There is mild right hip arthrosis with mild chondral thinning (proton-density sagittal image 16). Normal acetabulum. There is a tear of the right anterosuperior labrum (proton-density sagittal image 15). Normal femoral head. There is a small herniation pit at the lateral aspect of the right femoral neck (inversion recovery coronal image 16). Normal gluteus minimus, medius and iliopsoas tendons and distal insertions. There is no trochanteric, iliopsoas or iliopectineal bursitis. Normal superior and inferior pubic rami. Normal pubic symphysis. Normal ischial tuberosity. Normal origin of the hamstring tendons. Normal visualized iliac wing, sacroiliac joint, and sacral ala. Normal visualized soft tissue structures of the pelvis. MRI/Lower Ext Joint Only (Routine) IMPRESSION: Labral tear. Mild right hip arthrosis. Small herniation in the right femoral neck. Electronically Signed: Gael Alexandre MD at 12:55 EDT Tel , Service support ,
[2020-07-17 08:35] LABS: Absolute Lymphocyte Count 0.69 X10^3/uL (0.83-4.51); Absolute Neutrophil Count 5.7 X10^3/uL (2.0-7.7); Hematocrit 40.3 % (40-54); Hemoglobin 14.2 g/dL (13.0-16.5); Lymphocyte # 0.69 X10^3/ul (4.0); Lymphocyte % 10.4 % (19-41); Mean Corp Hgb Conc 35.2 g/dL (32-36); Mean Corpuscular Hgb 33.1 pg (27.0-32.0); Mean Corpuscular Volume 93.9 fL (80-94); Mean Platelet Vol. 10.8 fl (6.2-12.0); NRBC Flagged by Analyzer 0 % (0-5); Neutrophil % 86.1 % (47-70); POSITIVE MORPHOLOGY YES; Platelet Count 146 K/mm3 (150-450); RBC Distribution Width CV 13.1 % (11.6-14.6); RBC Distribution Width SD 43.8 fl (35.1-43.9); Red Blood Count 4.29 M/mm3 (4.6-6.2); White Blood Count 6.6 K/mm3 (4.4-11.0)
[2020-07-17 09:10] LABS: Bedside Glucose 142 mg/dL (70-110)
[2020-07-17] MEDS: Enoxaparin 40 MG/0.4 ML Syringe SC (09:24)
[2020-07-17] MEDS: Docusate Sodium 100 MG Capsule PO (09:24)
[2020-07-17] MEDS: amLODIPine 5 MG Tablet PO (09:25)
[2020-07-17] MEDS: Atenolol 50 MG Tablet PO (09:26)
[2020-07-17] MEDS: Pantoprazole Sodium 40 MG Tablet PO (09:26)
[2020-07-17] MEDS: Lisinopril 40 MG Tablet PO (09:26)
[2020-07-17 09:35] LABS: Differential Indicated SCAN CRITERIA MET
[2020-07-17] MEDS: Insulin Lispro 100 UNIT/ML INSULN.PEN SC (11:12)
--- NOTE | 2020-07-17 11:18 | CASEMGMT ---
RN CM Assessment Note Intro role of CM to patient in room. Patient is sitting in chair, states he is comfortable and is able to participate in assessment. Patient states his back pain is improved and he was able to ambulate around the byrd without severe pain. Presentation: severe back pain Diagnosis: Intractable R hip and lumbar back pain. PCP: Dr. Wheat Specialists: Dr. Marques, pain mgmt Insurance: [facility] Preferred Pharmacy: [facility] Prescription Benefit: yes LNOK: , Arlette Poe Living Arrangements: Lives in one story [facility] with his who is able to assist if needed. Pt states prior to back pain he was independent with ADL and IADL's. Tranportation: drives or can drive DME: shower chair only. RN CM discussed cane/walker for dc, however patient is declining at this point. RN CM let pt know if walker is needed, can arrange for this or give patient script. He does not wish to use walker. HHC: no SNF: no Patient DC Goals: Home. Denies any needs now that pain is improved. DC Plan: Home on discharge. Declining needing PT and RN CM let patient know if difficulties arise @ home to call PCP for recommendations. . Rosa ALFORD RN ACM
[2020-07-17 11:36] LABS: Bedside Glucose 235 mg/dL (70-110)
--- NOTE | 2020-07-17 12:33 | CASEMGMT ---
Intro role of CM to patient and [facility] form explained to in room- patient is @ testing-re: Observation status for treatment of back pain. Explained hospitalization will be paid per? insurance policy for Outpatient billing?and condition will continue to be evaluated for Inpt necessity. Also let pt know that [facility] sends paper in the billing packet with their phone number if questions arise. Discussed Pharmacy section of [facility] form and self administered medication guideline.? has good understaning and does not have further questions. Form signed and placed in chart, copy to pt. [employer] CM
--- NOTE | 2020-07-17 12:45 | NURSING ---
back from MRI
[2020-07-17 13:27] VITALS: BP 137/72; PULSE 59; RESP 16; TEMP 36.6; O2SAT 98
--- NOTE | 2020-07-17 13:58 | RAD_ITS ---
STUDY: X-RAY - PELVIS AND RIGHT HIP REASON FOR EXAM: Right hip pain. TECHNIQUE: 2 views of the pelvis and hip. COMPARISON: Radiographs 12/26/2019. FINDINGS: Normal visualized soft tissue structures. There are degenerative changes of the visualized lumbar spine. Normal bilateral iliac wings, sacroiliac joints and visualized sacrum. Normal bilateral superior and inferior pubic rami. Normal pubic symphysis. Normal bilateral ischial tuberosities. Normal visualized femoral head. Normal acetabulum. There is mild joint space narrowing of the right superomedial hip joint. RAD/HIP, UNI W/ Pelvis 2-3 Views IMPRESSION: Mild right hip arthrosis. Electronically Signed: Gael Alexandre MD at 15:16 EDT Tel , Service support ,
--- NOTE | 2020-07-17 15:40 | CON.PCM_ITS ---
Reason for Consult Date of Consultation: 07/17/20 Reason for Consultation: Right hip pain. Requested by Dr. Pantoja History of Present Illness: The patient is a 79 year old M diabetes and chronic right low back pain presents today with recent onset of severe right groin pain. Patient has had significant work-up for his back. He sees Dr. Marques for pain management. He seen Dr. Antoine at [facility] who previously has recommended appropriate surgery to be a multiple level fusion. She did send him down to [place] for a hip evaluation as well. Patient notes he has had hip injections from Dr. Vazquez to use fluoroscopy as well as the doctor from [place]. Neither 1 of these relieved his back pain. Patient notes that last Thursday he was riding in a car and he developed very severe and intense right groin pain which was new. It was also the most intense pain he had. He was unable to bear weight. He reports that he spent the weekend in bed and came to the hospital on Thursday due to the pain. He got fentanyl which helped relieve his pain in the EMS. He is getting Dilaudid here. He was placed on a prednisone Dosepak and seems to have minimal pain today. He has been up walking with physical therapy but only minimally. His biggest fear is that his pain will return to its intensity once he is home and he will once again be debilitated. Past Medical History Past Medical History (Chronic Problems): Chronic Problems HTN (hypertension) (Chronic) HLD (hyperlipidemia) (Chronic) Diabetes mellitus, type II (Chronic) GERD (gastroesophageal reflux disease) (Chronic) Obesity (BMI 30.0-34.9) (Chronic) Hypertrophic cardiomyopathy (Chronic) Allergies atorvastatin [From Lipitor] Allergy (Verified 07/16/20 11:06) Itching ezetimibe [From Vytorin] Allergy (Verified 07/16/20 11:06) Itching hydrocodone [From Vicodin] Allergy (Verified 07/16/20 11:06) Itching simvastatin [From Vytorin] Allergy (Verified 07/16/20 11:06) Itching Ypfodmg-Owo-Wbw Reductase Inhibitor Allergy (Verified 07/16/20 11:06) pain in muscles tramadol Allergy (Verified 07/16/20 11:06) Itching Home Medications: Ambulatory Orders Medication Instructions Recorded Aspirin E.C. [Ecotrin] 81 mg PO DAILY@0800 08/11/17 Atenolol [Tenormin] 50 mg PO BID 08/11/17 Lovastatin [Mevacor] 80 mg PO QHS 08/11/17 Multivit-Min/FA/Lycopen/Lutein 1 each PO DAILY 08/11/17 [Centrum Silver Tablet] Omeprazole [Prilosec] 40 mg PO BID 08/11/17 Quinapril HCl [Accupril] 40 mg PO DAILY 08/11/17 Amlodipine [Norvasc] 5 mg PO DAILY 07/13/20 Calcium Carbonate/Vitamin D3 1 ea PO DAILY 07/13/20 [Calcium 600-Vit D3 200 Tablet] Furosemide [Lasix] 20 mg PO QODAY 07/13/20 Gabapentin 600 mg PO TID 07/13/20 Hydrocodone/Acetaminophen [[place] 1 ea PO BID 07/13/20 7.5-325 Tablet] Meloxicam 7.5 mg PO DAILY 07/13/20 Metformin HCl [Metformin HCl ER] 500 mg PO DAILY 07/13/20 Docusate Sodium [Colace] 100 mg PO DAILY 07/16/20 Surgical History: - - Cataract surgery, colonoscopy with ablation of rectal AVMs. Psychiatric History: No pertinent psych hx Lives: Spouse/ Significant Other Smoking Status: Never smoker Tobacco Use: Non-smoker Alcohol: None Drugs: None - *Family History Maternal History Items: Cancer - Patient notes a maternal family history of leukemia. Paternal History Items: Cancer - Patient notes paternal family history of lung cancer with significant history of tobacco use and coal mining. Review of Systems Constitutional: Denies: Chills, Fever, Weight Change HEENT: Denies: Head Aches, Sinus Congestion, Sinus Drainage Cardiovascular: Denies: Chest Pain, Palpitations Respiratory: Denies: Cough, Shortness of breath at rest, Sputum production Gastrointestinal: Denies: Abdominal Pain, Nausea, Vomiting Genitourinary: Denies: Dysuria Musculoskeletal: Reports: Joint Pain, Joint Tenderness Skin: Denies: Rash, Wounds Neurological: Denies: Numbness, Tingling, Focal weakness Psychiatric: Denies: Anxiety, Depression, Homicidal Ideations, Suicidal Ideations Hematologic/ Lymphatic: Denies: Easy Bruising, Easy Bleeding Patient Problems: Active and Suspected Problems Intractable low back pain (Acute) Objective: Right hip radiographs show moderate joint space narrowing, subchondral sclerosis and marginal ossified formation consistent with moderate stage III right hip osteoarthritis. In addition patient also had an MRI with report in the chart. MRI is consistent with labral tearing and moderate arthrosis. - Physical Exam Vitals/I&O's: Vital Signs Temp Pulse Resp BP Pulse Ox 97.9 F 59 L 16 137/72 H 98 07/17/20 13:27 07/17/20 13:27 07/17/20 13:27 07/17/20 13:27 07/17/20 13:27 Oxygen Delivery Method Room Air Weight: 205 lb 4.006 oz Body Mass Index (BMI) 29.4 Intake and Output for Last 24 Hours 07/15/20 07/16/20 07/17/20 23:59 23:59 23:59 Intake Total 800 / 800 1000 / 1000 Output Total 1350 / 1350 Balance -550 / -550 1000 / 1000 General: Alert, Oriented x3, Cooperative HEENT: Atraumatic Neck: No JVD Lungs: - - GERD breathing Cardiovascular: - - regular pulse rate Abdomen: Non-Distended Extremities: - - Right lower extremity: Negative straight leg raise. Hip flexion to 90 degrees. Internal rotation to neutral external rotation 40. Only mild reproducible pain with flexion adduction internal rotation. 5 out of 5 hip flexor strength testing, neurovascular intact distally Left lower extremity: Negative straight leg raise. Hip flexion to 90 degrees. Rotation to neutral, external rotation to 40 degrees. No pain is reproduced with passive flexion adduction internal rotation. Neurovascularly intact distally. 5 out of 5 hip flexion strength. Skin: No rashes Neurological: Cranial nerves II-XII grossly intact Psych/Mental Status: Normal Affect Laboratory Results 07/16/20 11:40: Magnesium 2.3 07/16/20 17:11: POC Glucose 125 H 07/16/20 21:29: POC Glucose 193 H 07/17/20 06:30: WBC 6.6, RBC 4.29 L, Hgb 14.2, Hct 40.3, MCV 93.9, MCH 33.1 H, MCHC 35.2, RDW Std Deviation 43.8, RDW Coeff of Bebeto 13.1, Plt Count 146 L, MPV 10.8, Immature Gran % (Auto) 0.500, Neut % (Auto) 86.1 H, Lymph % (Auto) 10.4 L, [place] % (Auto) 3.0, Eos % (Auto) 0.0, Baso % (Auto) 0.0, Absolute Neuts (auto) 5.7, Absolute Lymphs (auto) 0.69 L, Total Counted CERTIFIED ORTHOPTIST, Neutrophils % (Manual) 81 H, Lymphocytes % (Manual) 15 L, Monocytes % (Manual) 4, Nucleated RBC % 0, Differential Comment MANUAL DIFF, Platelet Estimate ADEQUATE, RBC Morphology NORM C+C 07/17/20 06:30: Sodium 139, Potassium 4.1, Chloride 108 H, Carbon Dioxide 27.0, Anion Gap 4 L, BUN 15, Creatinine 0.93, Estim Creat Clear Calc 65.41, Est GFR (MDRD) Af Amer 100, Est GFR (MDRD) Non-Af 83, BUN/Creatinine Ratio 16.1, Glucose 142 H, Calcium 8.4 L, Total Bilirubin 0.50, AST 18, ALT 27, Alkaline Phosphatase 66, Total Protein 6.3 L, Albumin 3.1 L, Globulin 3.2, Albumin/Globulin Ratio 1.0 07/17/20 06:37: POC Glucose 142 H 07/17/20 11:10: POC Glucose 235 H Current Medications Acetaminophen (Tylenol) 650 mg PO Q6H PRN PRN PRN Reason: Pain Score 1-10/Temp > 100.7 F Al Hydroxide/Mg Hydroxide (Mylanta Ii) 30 ml PO Q6H PRN PRN PRN Reason: Gastric Burning Albuterol Sulfate (Ventolin Aerosols) 2.5 mg INHALATION Q2H PRN PRN PRN Reason: Dyspnea, wheezing Amlodipine Besylate (Norvasc) 5 mg PO DAILY [facility] Last Admin: 07/17/20 09:25 Dose: 5 mg Documented by: Aspirin (Ecotrin) 81 mg PO DAILY@0800 [facility] Last Admin: 07/17/20 07:50 Dose: 81 mg Documented by: Atenolol (Tenormin (Beta Gagan)) 50 mg PO BID [facility] Last Admin: 07/17/20 09:26 Dose: 50 mg Documented by: Diphenhydramine HCl (Benadryl) 25 mg IV Q8H PRN PRN PRN Reason: ITCHING Docusate Sodium (Colace) 100 mg PO DAILY [facility] Last Admin: 07/17/20 09:24 Dose: 100 mg Documented by: Enoxaparin Sodium (Lovenox) 40 mg SC DAILY [facility] Last Admin: 07/17/20 09:24 Dose: 40 mg Documented by: Furosemide (Lasix) 20 mg PO QODAY [facility] Last Admin: 07/16/20 17:19 Dose: 20 mg Documented by: Gabapentin (Neurontin) 800 mg PO TIDCM [facility] Last Admin: 07/17/20 11:13 Dose: 800 mg Documented by: Guaifenesin (Robitussin) 20 ml PO Q4H PRN PRN PRN Reason: COUGH Hydralazine HCl (Apresoline Iv) 10 mg IV Q4H PRN PRN PRN Reason: SBP > 160 Hydromorphone HCl (Dilaudid Inj) 0.5 mg IV Q4H PRN PRN PRN Reason: Pain Score 6-10/10 Insulin Human Lispro (Humalog Kwikpen (Bkc)) 0 unit SC [facility]; Protocol Last Admin: 07/17/20 11:12 Dose: 3 units Documented by: Ketorolac Tromethamine (Toradol (Bkc)) 15 mg IV Q8H [facility] Stop: 07/18/20 00:01 Last Admin: 07/17/20 07:53 Dose: 15 mg Documented by: Lisinopril (Zestril) 40 mg PO DAILY [facility] Last Admin: 07/17/20 09:26 Dose: 40 mg Documented by: Lovastatin (Mevacor) 80 mg PO QHS [facility] Last Admin: 07/16/20 21:29 Dose: 80 mg Documented by: Magnesium Hydroxide (Milk Of Magnesia) 30 ml PO DAILY PRN PRN PRN Reason: Constipation Melatonin (Melatonin) 3 mg PO QHS PRN PRN PRN Reason: INSOMNIA Methylprednisolone (Medrol Dosepak) 4 mg PO 0800,1200,1700 [facility]; Taper Stop: 07/21/20 08:59 Last Admin: 07/17/20 11:13 Dose: 4 mg Documented by: Ondansetron HCl (Zofran) 4 mg IV Q6H PRN PRN PRN Reason: NAUSEA/VOMITING Oxycodone HCl (Oxyir) 10 mg PO Q4H PRN PRN PRN Reason: Pain Score 4-5/10 Pantoprazole Sodium (Protonix) 40 mg PO BID [facility] Last Admin: 07/17/20 09:26 Dose: 40 mg Documented by: Polyethylene Glycol (Miralax) 17 gm PO DAILY [facility] Last Admin: 07/17/20 09:25 Dose: Not Given Documented by: Prochlorperazine Edisylate (Compazine Iv) 5 mg IV Q4H PRN PRN PRN Reason: Breakthrough nausea/vomiting Psyllium Hydrophilic Mucilloid (Metamucil) 1 packet PO DAILY PRN PRN PRN Reason: Constipation Senna/Docusate Sodium (Senokot-S, Debra-Colace) 2 tablet PO BID PRN PRN PRN Reason: Constipation Sodium Chloride () 10 - 40 ml IV UD PRN PRN Reason: SALINE FLUSH Last Admin: 07/16/20 23:50 Dose: 10 ml Documented by: Throat Lozenges (Cepacol Sore Throat Lozenge) 1 lozenge MUCOUS MEM Q2H PRN PRN PRN Reason: SORE THROAT Tizanidine HCl (Zanaflex) 2 mg PO Q8H PRN PRN PRN Reason: muscle strain, spasm Assessment/Plan All Active Problems Intractable low back pain (Acute) Right hip primary osteoarthritis with subsequent labral tear. I explained to the patient the natural history of the disease process and available treatment options. Include nonsteroidal anti-inflammatories, corticosteroid injections, oral steroids, narcotic pain medications, physical therapy as well as total joint replacement. Patient is exhausted may need options through pain management previously. He has not responded well to corticosteroid injections in the past with minimal relief of the symptoms. I explained the patient that his new groin pain is likely related to his hip however a lot of the buttocks pain is mostly related to his back. Patient demonstrates an understanding. His biggest fear is return of the intense ~10 groin pain which made him debilitated over the weekend. He was encouraged to continue with a Medrol Dosepak which I think will be helpful for both his back and his hip. But I explained that is very likely he will have return of the symptoms at some point hopefully not in the same intensity. He will follow-up in my office he was invited to follow-up within 1 week once his Medrol Dosepak is completed or on an as-needed basis. Patient and his are both given time to ask appropriate questions and all questions were answered to the best my ability. Please call orthopedics with any further questions or concerns. [facility] Office:
--- NOTE | 2020-07-17 16:46 | DCINST_ITS ---
- Discharge Diagnoses Current Active Problems: Current Active and Chronic Problems Intractable low back pain (Acute) HTN (hypertension) (Chronic) HLD (hyperlipidemia) (Chronic) Diabetes mellitus, type II (Chronic) GERD (gastroesophageal reflux disease) (Chronic) Obesity (BMI 30.0-34.9) (Chronic) Hypertrophic cardiomyopathy (Chronic) You will use the following diet at home:: Calorie/Carbohydrate Controlled (specify 1200, 1400, etc) - 1800 [place] Your food should be the consistency of: Regular Your liquids should be the consistency of: Regular/Thin Discharge Activity: Return to Normal Activity Weight Bearing Status: Full weight bearing Allergies/Adverse Reactions: Allergies atorvastatin [From Lipitor] Allergy (Verified 07/16/20 11:06) Itching ezetimibe [From Vytorin] Allergy (Verified 07/16/20 11:06) Itching hydrocodone [From Vicodin] Allergy (Verified 07/16/20 11:06) Itching simvastatin [From Vytorin] Allergy (Verified 07/16/20 11:06) Itching Zydygjx-Vzc-Twf Reductase Inhibitor Allergy (Verified 07/16/20 11:06) pain in muscles tramadol Allergy (Verified 07/16/20 11:06) Itching Medications to take at Discharge Aspirin E.C. [Ecotrin] 81 mg PO DAILY@0800 08/11/17 Atenolol [Tenormin] 50 mg PO BID 08/11/17 Lovastatin [Mevacor] 80 mg PO QHS 08/11/17 Multivit-Min/FA/Lycopen/Lutein [Centrum Silver Tablet] 1 each PO DAILY 08/11/17 Omeprazole [Prilosec] 40 mg PO BID 08/11/17 Quinapril HCl [Accupril] 40 mg PO DAILY 08/11/17 Amlodipine [Norvasc] 5 mg PO DAILY 07/13/20 Calcium Carbonate/Vitamin D3 [Calcium 600-Vit D3 200 Tablet] 1 ea PO DAILY 07/13/20 Furosemide [Lasix] 20 mg PO QODAY 07/13/20 Gabapentin 600 mg PO TID 07/13/20 Hydrocodone/Acetaminophen [[place] 7.5-325 Tablet] 1 ea PO BID 07/13/20 Metformin HCl [Metformin HCl ER] 500 mg PO DAILY 07/13/20 Docusate Sodium [Colace] 100 mg PO DAILY 07/16/20 Meloxicam 7.5 mg PO DAILY #1 07/17/20 MethylPREDNISolone DosePak [Medrol DosePak] 4 mg PO 0800,1200,1700 tablet 07/17/20 Oxycodone [Oxyir] 10 mg PO Q4H PRN PRN 7 Days #30 tablet 07/17/20 The following prescriptions were given: Oxycodone [Oxyir] 10 mg PO Q4H PRN PRN 7 Days #30 tablet PRN Reason: Pain Score 4-5/10 Transmission Status: Sent to [facility] Primary Care Physician: Alonso Wheat MD [Primary Care Provider] - Test Results: Test results from this visit will be discussed in further detail at your follow- up appointment, if applicable. Please Follow Up With: Gualberto Atkins MD When: as directed Please Follow Up With: Jared Marques MD When: next week
[2020-07-17 17:01] LABS: Bedside Glucose 133 mg/dL (70-110)
--- NOTE | 2020-07-17 18:12 | DS.PCM_ITS ---
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 #3 generalized debility secondary to #1 and #2 #4 essential hypertension - Secondary Discharge Diagnosis Chronic Problems: Chronic Problems HTN (hypertension) (Chronic) HLD (hyperlipidemia) (Chronic) Diabetes mellitus, type II (Chronic) GERD (gastroesophageal reflux disease) (Chronic) Obesity (BMI 30.0-34.9) (Chronic) Hypertrophic cardiomyopathy (Chronic) Hospital Course and Treatment Imaging Results: 07/17/20 13:58 HIP, UNI W/ Pelvis 2-3 Views [RAD] Routine Operations: None Procedures: None Summary of Care Provided: The patient is a 79 year old M seen in the emergency room at [facility] with a chief complaint of severe right hip discomfort, he stated his discomfort started 3 days prior but had worsened and he was not able to ambulate. Work-up in the emergency room showed no acute process, patient was placed in observation status on [facility] 3 and seen by PT and OT, he was placed on oral corticosteroids and he received p.o. pain medicine. Patient underwent an MRI of the right hip which showed evidence of a labral tear, he was seen in consultation by orthopedic surgery who recommended follow-up visits after he was discharged. Patient's ambulation was improved during his hospital stay in he was able to ambulate with little assistance prior to discharge. On 07/17/2020, patient was seen and examined: On examination he appeared in good health and spirits. Vital signs as documented. Skin warm and dry and without overt rashes. Neck without JVD, neck was supple, trachea midline, thyroid was normal. Lungs clear bilaterally, normal air movement was noted. Heart exam notable for regular rhythm, normal sounds and absence of murmurs, rubs or gallops. Abdomen unremarkable and without evidence of organomegaly, masses, or abdominal aortic enlargement. Bowel sounds are present, abdomen is not distended. Extremities nonedematous, no cyanosis was noted, no clubbing was noted. Neuro: Cranial nerves II through XII are grossly intact, no focal motor deficits were noted, sensation to light touch and pinprick intact, motor exam 5/5 throughout. Psych: Patient is alert and oriented x3, he does not appear anxious or depressed, he does not appear agitated. Patient appears stable for discharge on 07/17/2020, his pain management physician was notified that I would be giving him extra pain medications at the time of discharge, he was to follow-up as an outpatient with orthopedic surgery and pain management. - Physical Exam Vitals/I&O's: Vital Signs Temp Pulse Resp BP Pulse Ox 97.9 F 59 L 16 137/72 H 98 07/17/20 13:27 07/17/20 13:27 07/17/20 13:27 07/17/20 13:27 07/17/20 13:27 Oxygen Delivery Method Room Air Weight: 93.1 kg Body Mass Index (BMI) 29.4 Intake and Output for Last 24 Hours 07/15/20 07/16/20 07/17/20 23:59 23:59 23:59 Intake Total 800 / 800 1000 / 1000 Output Total 1350 / 1350 Balance -550 / -550 1000 / 1000 Laboratory Results 07/16/20 21:29: POC Glucose 193 H 07/17/20 06:30: WBC 6.6, RBC 4.29 L, Hgb 14.2, Hct 40.3, MCV 93.9, MCH 33.1 H, MCHC 35.2, RDW Std Deviation 43.8, RDW Coeff of Bebeto 13.1, Plt Count 146 L, MPV 10.8, Immature Gran % (Auto) 0.500, Neut % (Auto) 86.1 H, Lymph % (Auto) 10.4 L, [place] % (Auto) 3.0, Eos % (Auto) 0.0, Baso % (Auto) 0.0, Absolute Neuts (auto) 5.7, Absolute Lymphs (auto) 0.69 L, Total Counted [employer], Neutrophils % (Manual) 81 H, Lymphocytes % (Manual) 15 L, Monocytes % (Manual) 4, Nucleated RBC % 0, Differential Comment MANUAL DIFF, Platelet Estimate ADEQUATE, RBC Morphology NORM C+C 07/17/20 06:30: Sodium 139, Potassium 4.1, Chloride 108 H, Carbon Dioxide 27.0, Anion Gap 4 L, BUN 15, Creatinine 0.93, Estim Creat Clear Calc 65.41, Est GFR (MDRD) Af Amer 100, Est GFR (MDRD) Non-Af 83, BUN/Creatinine Ratio 16.1, Glucose 142 H, Calcium 8.4 L, Total Bilirubin 0.50, AST 18, ALT 27, Alkaline Phosphatase 66, Total Protein 6.3 L, Albumin 3.1 L, Globulin 3.2, Albumin/Globulin Ratio 1.0 07/17/20 06:37: POC Glucose 142 H 07/17/20 11:10: POC Glucose 235 H 07/17/20 16:22: POC Glucose 133 H Discharge Activity: Return to Normal Activity Weight Bearing Status: Full weight bearing Home Medications: Medications to take at Discharge Aspirin E.C. [Ecotrin] 81 mg PO DAILY@0800 08/11/17 Atenolol [Tenormin] 50 mg PO BID 08/11/17 Lovastatin [Mevacor] 80 mg PO QHS 08/11/17 Multivit-Min/FA/Lycopen/Lutein [Centrum Silver Tablet] 1 each PO DAILY 08/11/17 Omeprazole [Prilosec] 40 mg PO BID 08/11/17 Quinapril HCl [Accupril] 40 mg PO DAILY 08/11/17 Amlodipine [Norvasc] 5 mg PO DAILY 07/13/20 Calcium Carbonate/Vitamin D3 [Calcium 600-Vit D3 200 Tablet] 1 ea PO DAILY 07/13/20 Furosemide [Lasix] 20 mg PO QODAY 07/13/20 Gabapentin 600 mg PO TID 07/13/20 Hydrocodone/Acetaminophen [[place] 7.5-325 Tablet] 1 ea PO BID 07/13/20 Metformin HCl [Metformin HCl ER] 500 mg PO DAILY 07/13/20 Docusate Sodium [Colace] 100 mg PO DAILY 07/16/20 Meloxicam 7.5 mg PO DAILY #1 07/17/20 MethylPREDNISolone DosePak [Medrol DosePak] 4 mg PO 0800,1200,1700 tab 07/17/20 Oxycodone [Oxyir] 10 mg PO Q4H PRN PRN 7 Days #30 tab 07/17/20 Following Prescriptions Were Given to Patient: Oxycodone [Oxyir] 10 mg PO Q4H PRN PRN 7 Days #30 tab PRN Reason: Pain Score 4-5/10 Transmission Status: Received by [facility] Primary Care Physician: Alonso Wheat MD [Primary Care Provider] - Please Follow Up With: Gualberto Atkins MD When: as directed Please Follow Up With: Jared Marques MD When: next week Disposition: Home Minutes spent on discharge:: 30 Patient Condition:: Stable Medical Necessity - Tobacco Use Smoking Status: Never smoker Tobacco Use: Non-smoker Meaningful Use Info Meaningful Use Diagnoses (Choose all that apply): None applicable OBSV E&M: 01903 Observation care discharge
== END 2020-07-17 17:49 | disposition home or self-care (01) ==
LOC: ED 12:36 → MS3 13:28
PROVIDERS: Admitting Provider Family Medicine; Emergency Provider Emergency Medicine; PCP Internal Medicine; Visit Provider Internal Medicine
DX: S73.191A Other sprain of right hip, initial encounter (principal); X58.XXXA Exposure to other specified factors, initial encounter; Y93.9 Activity, unspecified; Y92.9 Unspecified place or not applicable; M51.36 Other intervertebral disc degeneration, lumbar region; I10 Essential (primary) hypertension; M16.11 Unilateral primary osteoarthritis, right hip; E78.5 Hyperlipidemia, unspecified; G89.29 Other chronic pain; E11.9 Type 2 diabetes mellitus without complications; K21.9 Gastro-esophageal reflux disease without esophagitis; E66.9 Obesity, unspecified; I42.2 Other hypertrophic cardiomyopathy; Z79.899 Other long term (current) drug therapy; Z79.82 Long term (current) use of aspirin; Z79.84 Long term (current) use of oral hypoglycemic drugs; Z68.30 Body mass index [BMI] 30.0-30.9, adult; Z85.46 Personal history of malignant neoplasm of prostate; Z92.3 Personal history of irradiation
CPT/HCPCS: 36415; 73502; 73721; 74177; 80048; 80053; 82962; 83735; 85025; 96361; 96372; 96374; 96375; 96376; 97110; 97161; 97166; 97530; 99218; 99251; 99285; J7030; Q9967; A4216; G0378; G0463; J2405

== ENCOUNTER → 2022-04-14 | Outpatient (CLI) | payer MEDICARE, BC, SELFPAY ==
[2022-04-14 14:39] LABS: Amphetamine Urine VISTA NEGATIVE (<1000 ng/mL); Barbiturate Urine VISTA NEGATIVE (< 200 ng/mL); Benzodiazepine Urine VISTA NEGATIVE (< 200 ng/mL); Cocaine Urine VISTA NEGATIVE (< 300 ng/mL); Ecstacy Urine VISTA NEGATIVE (< 500 ng/mL); Methadone Urine VISTA NEGATIVE (< 300 ng/mL); PCP Urine VISTA NEGATIVE (< 25 ng/mL); THC Urine VISTA NEGATIVE (< 50 ng/mL); Vista UDS pH Range 6
== END | disposition home or self-care (01) ==
PROVIDERS: PCP Internal Medicine; Referring Provider Anesthesiology Pain Medicine; Visit Provider Anesthesiology Pain Medicine
DX: F11.20 Opioid dependence, uncomplicated (principal)
CPT/HCPCS: 80307

== ENCOUNTER → 2024-10-10 | Outpatient (CLI) | payer MEDICARE, BC, SELFPAY ==
[2024-10-10 16:54] LABS: Amphetamine Urine VISTA NEGATIVE (<1000 ng/mL); Barbiturate Urine VISTA NEGATIVE (< 200 ng/mL); Benzodiazepine Urine VISTA NEGATIVE (< 200 ng/mL); Cocaine Urine VISTA NEGATIVE (< 300 ng/mL); Ecstacy Urine VISTA NEGATIVE (< 500 ng/mL); Methadone Urine VISTA NEGATIVE (< 300 ng/mL); PCP Urine VISTA NEGATIVE (< 25 ng/mL); THC Urine VISTA NEGATIVE (< 50 ng/mL); Vista UDS pH Range 5
== END | disposition home or self-care (01) ==
LOC: LAB 14:43
PROVIDERS: PCP Internal Medicine; Referring Provider Anesthesiology Pain Medicine; Visit Provider Anesthesiology Pain Medicine
DX: F11.20 Opioid dependence, uncomplicated (principal)
CPT/HCPCS: 80307

== ENCOUNTER → 2024-10-12 | Outpatient (CLI) | payer MEDICARE, BC, SELFPAY ==
--- NOTE | 2024-10-12 15:39 | CT_ITS ---
INDICATION: GROSS HEMATURIA, TROUBLE URINATING EXAMINATION: CT ABDOMEN AND PELVIS WITH AND WITHOUT CONTRAST - CT Abdomen And Pelvis WO/W Contrast Injection TECHNIQUE: Helically acquired images were obtained of the abdomen and pelvis both before and after IV contrast. The protocol utilizes one or more of the following dose reduction techniques: automated exposure control, adjustment of mA and/or kV according to patient size,and/or use of iterative reconstruction technique. IV Contrast dosage and agent: 100 cc Isovue-300 Oral contrast: None. RADIATION DOSAGE (If Supplied By Facility): CTDIvol = ( 22.31 ) mGy, DLP = ( 4093.55 ) mGycm COMPARISON: Prior study dated: 07/16/2020 FINDINGS: LOWER CHEST: Chronic changes right base is unchanged. No cardiomegaly or pericardial effusion. LIVER: Homogeneous. No focal mass. GALLBLADDER AND BILIARY TREE: No calcified gallstones. No gallbladder distension or wall edema. No intra- or extrahepatic biliary ductal dilation. PANCREAS: No focal cystic or solid mass. SPLEEN: Normal size without focal cystic or solid mass. ADRENAL GLANDS: No nodules. KIDNEYS AND URETERS: Atrophic changes in the upper pole of the right kidney. Multiple bilateral simple cysts essentially unchanged, the largest is in the left kidney measuring about 5.5 cm for which no further follow-up exam is needed. No evidence of hydronephrosis. No ureteral stone is identified. PERITONEUM: No ascites or free air. No other fluid collection. BOWEL: No evidence of acute appendicitis. No stomach or bowel distension. No focal inflammatory change. LYMPH NODES: No enlarged mesenteric or retroperitoneal lymph nodes. VESSELS: Aorta is non-dilated. URINARY BLADDER: Circumferential thickening of the bladder wall could be due to underdistention. Cystitis cannot be excluded. REPRODUCTIVE ORGANS: No pelvic masses. ABDOMINAL WALL: Small bilateral inguinal hernias containing fat. BONES: Multilevel degenerative changes of the spine. CT/CT Abd/Pelvis W/WO Contrast IMPRESSION: 1. Thickening of the bladder wall likely due to underdistention. Cystitis cannot be excluded. 2. No focal acute inflammatory process. 3. Atrophic changes in the right kidney and bilateral simple renal cysts unchanged. Electronically Signed: Jose Ramon Swift MD at 13:12 EST ,
[2024-10-12 16:07] LABS: CREATININE FINGERSTICK < 1.0 mg/dL (0.70-1.30); EGFR FINGERSTICK > 60.0000 mL/min (>60)
== END | disposition home or self-care (01) ==
LOC: CT 15:38
PROVIDERS: PCP Internal Medicine; Referring Provider Urology; Visit Provider Urology
DX: R31.0 Gross hematuria (principal)
CPT/HCPCS: 74178; Q9967

== ENCOUNTER → 2025-04-27 | Outpatient (CLI) | payer MEDICARE, BC, SELFPAY ==
[2025-04-27 14:22] LABS: Amphetamine Urine NEGATIVE (<1000 ng/mL); Barbiturate Urine NEGATIVE (< 200 ng/mL); Benzodiazepine Urine NEGATIVE (< 200 ng/mL); Buprenorphine Urine NEGATIVE (< 200 ng/mL); Cocaine Urine NEGATIVE (< 300 ng/mL); Fentanyl, Urine NEGATIVE; Methadone Urine NEGATIVE (< 300 ng/mL); Opiates Urine PRESUMPTIVE POSITIVE (< 300 ng/mL); Oxycodone, Urine NEGATIVE (< 100 ng/mL); PCP Urine NEGATIVE (< 25 ng/mL); THC Urine NEGATIVE (< 50 ng/mL)
== END | disposition home or self-care (01) ==
LOC: LAB 11:59
PROVIDERS: PCP Internal Medicine; Referring Provider Anesthesiology Pain Medicine; Visit Provider Anesthesiology Pain Medicine
DX: F11.20 Opioid dependence, uncomplicated (principal)
CPT/HCPCS: 80307

== ENCOUNTER → 2025-07-05 | Outpatient (CLI) | payer MEDICARE, BC, SELFPAY ==
--- NOTE | 2025-07-05 10:15 | MRI_ITS ---
PROCEDURE: SPINE LUMBAR (ROUTINE) 07/05/2025 REASON FOR EXAM: LUMBAR RADICULOPATHY TECHNIQUE: SPINE LUMBAR (ROUTINE) COMPARISON: May 12, 2019. Report was unavailable for review. FINDINGS: Vertebrae: No fracture. However, there are bridging osteophytes anteriorly T12/L1, L2/L3, L3/L4. 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 See below descriptions. Minimal edema of the opposing endplates of L2/3 mainly on the left. Discs: Disc desiccation throughout the lumbar spine. Alignment: Straightening of the lordosis with reversal in the thoracolumbar region. Additionally, there is curvature of the lumbar spine with the upper lumbar spine directed to the left in the lower lumbar spine directed to the right. Conus Medullaris: T12 termination. No abnormal signal. T12-L1: Interval, severe development of decreased disc height, endplate irregularity and grade 1 anterolisthesis of T12 on L1 of approximately 5 mm. This was not imaged in the axial plane but there is diffuse disc osteophyte protrusion, disc uncovering. Severe facet hypertrophy and bilateral exit foraminal narrowing. This impinges upon the caudal aspect of the cauda equina. There is likely central stenosis. Correlate with bilateral L1 radiculopathy. L1-2: Mild, diffuse disc bulge. Severe facet hypertrophy. Left exit foraminal narrowing. Correlate with L1 radiculopathy. Similar to prior. L2-3: Xgnqtohl-id-xzkkga disc space narrowing. This is asymmetrically worse on the left related to spinal curvature. Disc osteophyte protrusion is seen. Moderate right facet hypertrophy. Severe productive osteophytosis at the left facet protrudes into the sub foraminal zone and foramen; this has worsened.. No central stenosis at the midline. Correlate with radiculopathy of the traversing L3 nerve root in the exiting L2 nerve root on the left. L3-4: Gszgqadw-sg-zdhdic loss of disc height. Diffuse disc osteophyte protrusion. Moderate thickening of the ligamentum flavum and severe facet hypertrophy with encroachment on the central canal, cijh-sthenba-ihoy-right. Central stenosis is borderline at 10 mm AP. Bhvz-xfnaxlk-ukyr-right exit foraminal narrowing. Compromise of the traversing L3 nerve root. Correlate with left L3 and L4 radiculopathy. No change. L4-5: Obliteration of the disc space with bony ankylosis. An irregular bony ridge is seen posteriorly creating an extradural defect with central stenosis to 9 mm AP. Yfzx-is-oprngjsd bilateral facet hypertrophy is seen. Xpcbr-pehmpyu-hqcq-left exit foraminal narrowing is again noted an unchanged. Correlate with L4 radiculopathy bilaterally. L5-S1: Mild left facet hypertrophy. No change. Sacrum: Unremarkable Bilateral renal cysts are incompletely imaged and incompletely characterized. MRI/Spine Lumbar (Routine) IMPRESSION: 1. Severe multilevel degenerative disc disease. This has significantly progre ssed at T12/L1 when compared to 2019 where there is also grade 1 anterolisthesis of T12 on L1. See above descriptions. 2. Curvature of the spine. Malalignment. 3. Renal cysts are incompletely imaged. Consider ultrasound non emergently. Reading Location: [id number]
--- OUTSIDE RECORDS SUMMARY | 2025-07-05 18:55 | XMS RPT_ITS | CCD ---
Author Organization [facility] Inform ion Partnership [facility] Care Team Providers Care Master Plumber Name Role Phone Alonso Wheat Unavailable Roger Espinosa MD Unavailable SUZY GAUTAMYRAM Unavailable Unavailable SHELLY OLIVEROS (HENRI) Unavailable Unavailable LOPEZ GAUTAM Unavailable Unavailable IMCA Unavailable Unavailable Alonso Wheat Unavailable Unavailable CALDOMENICA, GAEL JUAN CARLOS Unavailable Unavailabl e OMAR, GAEL JUAN CARLOS Unavailable UnavailALONSO Tiwari Unavailable Unavailable CALNON, GAEL JUAN CARLOS Unavailable Unavailabl e OMAR, GAEL JUAN CARLOS Unavailable UnavailALONSO Tiwair Unavailable Unavailable Alonso Wheat Primary Care Provider Isabela Steel Unavailable Unavailable Pending Provider Unavailable Unavailable Becky Bauer Unavailable Unavailable Devante Nelsonnis Juan Carlos Unavailable [phone] Alonso Wheat MD Primary Care Provider Gael Nelson MD Unavailable Pending Provider Unavailable Unavailable Gael Nelson MD Unavailable Alonso Wheat MD Primary Care Provider Derek HUTCHISON MD, [place] Unavailable Alonso Wheat MD Primary Care Provider Gael Nelson MD Unavailable Alonso Wheat MD Primary Care Provider Derek HUTCHISON MD, [place] Unavailable Alonso hWeat MD Primary Care Provider Omar HUTCHISON, Gael Campoverde Unavailable Jarret HUTCHISON, Alonso Mclean Primary Care Provider Derek HUTCHISON MD, [place] Unavailable Derek HUTCHISON, [place] Unavailable JARRET, ALONSO Primary Care Unavailable MELANIE BURCIAGA Referring Unavaila MELANIE Guallpa Attending Unavaila dasia Wheat MD, Alonso Mclean Primary Care Provider Brian TRANSPORTATION SECURITY OFFICER.CHELSY, Romelia Min Unavailable Jarret HUTCHISON, Dr. Gupta Primary Care Provider Shelli HUTCHISON, Dr. Coleman Attending Provider Shelli HUTCHISON, Dr. Coleman Referring Provider JARRET, ALONSO Primary Care Unavailable ANU BRIGGS Referring Unavailable ANU BRIGGS Attending Unavailable MELANIE BURCIAGA Attending Unavaila ble WHEAT, ALONSO Primary Care Unavailable WHEAT, ALONSO Primary Care Unavailable ANU BRIGGS Attending Unavailable SVETLANA JAEGER Attending Unavailable WHEAT, MARGIE Primary Care Unavailable HERMINIA REED Referring Unavailable WHEAT, MARGIE Primary Care Unavailable WHEAT, ALONSO Mclean Attending Unavailable WHEAT, MARGIE Primary Care Unavailable HERMINIA REED Attending Unavailable HERMINIA REED Referring Unavailable WHEAT, MARGIE Primary Care Unavailable SHELBY GRIMES Attending Unavailable WHEAT, ALONSO Mclean Primary Care Unavailable ROMELIA RENEE Attending Unavailable WHEAT, MARGIE Primary Care Unavailable WHEAT, ALONSO Mclean Attending Unavailable SELF Referring Unavailable WHEAT, ALONSO Mclean Primary Care Unavailable ROMELIA RENEE Referring Unavailable WHEAT, MARGIE Primary Care Unavailable WHEAT, MARGIE Attending Unavailable WHEAT, MARGIE Primary Care Unavailable SVETLANA JAEGER Referring Unavailable WHEAT, MARGIE Primary Care Unavailable SVETLANA JAEGER Referring Unavailable WHEAT, MARGIE Primary Care Unavailable SVETLANA JAEGER Referring Unavailable WHEAT, MARGIE Primary Care Unavailable SVETLANA JAEGER Referring Unavailable WHEAT, MARGIE Primary Care Unavailable Wheat, Alonso Primary Care Unavailable Tavo Hester Attending Unavailable MirTavo Referring Unavailable Basali, Jared Attending Unavailable Basali, Ayman Referring Unavailable Wheat, Alonso Primary Care Unavailable PraysonJosé Manuel Referring Unavailable Wheat, Alonso Primary Care Unavailable Prayson José Manuel Attending Unavailable Basali, Antoineman Attending Unavailable Basali, Ayman Referring Unavailable Wheat, Alonso Primary Care Unavailable Allergies Allergy Classification Reported Allergen(s) Allergy Type Date of Onset Reaction(s) Facility (20 sources) acetaminophen / HYDROcodone; Translations: [HYDROCODONE-ACET AMINOPHEN] Propensity to adverse reactions to drug 3 [facility] Work Phone: (20 sources) atorvastatin; Translations: [ATORVASTATIN CALCIUM] Propensity to adverse reactions to drug 6 Other (See Comments), Intolerance [facility] Work Phone: (20 sources) ezetimibe; Translations: [EZETIMIBE] Propensity to adverse reactions to drug 5 Itching [facility] Work Phone: (20 sources) Hmg-Coa Reductase Inhibitors (Statins); Translations: [ANOWRSS-SQL-BNW REDUCTASE INHIBITORS] Propensity to adverse reactions to drug 8 Other (See Comments) [facility] Work Phone: (20 sources) simvastatin; Translations: [SIMVASTATIN] Propensity to adverse reactions to drug 5 Itching [facility] Work Phone: (20 sources) traMADol; Translations: [TRAMADOL] Propensity to adverse reactions to drug 1 Itching [facility] Work Phone: (2 sources) acetaminophen / HYDROcodone Drug Allergy 7 unspecified [facility] Work Phone: (2 sources) atorvastatin Drug Allergy 7 unspecified [facility] Work Phone: (2 sources) ezetimibe / simvastatin Drug Allergy 7 unspecified [facility] Work Phone: (2 sources) traMADol Drug Allergy 7 [facility] Work Phone: (2 sources) STATINS DEPLETION drug allergy 7 unspecified [facility] Work Phone: (20 sources) ezetimibe / simvastatin; Translations: [EZETIMIBE-SIMVAS TATIN] Drug Allergy 6 Intolerance [facility] Other [place] [facility] (13 sources) HMG-CoA reductase inhibitor Propensity to adverse reactions to drug 8 Other (See Comments), Intolerance [facility] (20 sources) Albuterol; Translations: [ALBUTEROL] Drug Allergy 1 Intolerance [facility] Work Phone: (2 sources) atorvastatin Drug Allergy 1 Itching [facility] (2 sources) HYDROcodone Drug Allergy 1 Itching [facility] (2 sources) Upgvowf-Fsj-Ibf Reductase Inhibitor; Translations: [Fyuarlu-Odm-Lpk Reductase Inhibitor] Allergy to substance 1 pain in muscles [facility] Repository (20 sources) HMG-CoA reductase inhibitor Propensity to adverse reactions to drug 8 Other (See Comments), Intolerance [facility] (1 source) atorvastatin Drug Allergy 1 [facility] Repository (1 source) ezetimibe Drug Allergy 1 [facility] Repository (1 source) HYDROcodone Drug Allergy 1 [facility] Repository (1 source) Simvastatin Drug Allergy 1 [facility] Repository (1 source) traMADol Drug Allergy 1 [facility] Repository Medications Current Medications Medication Drug Class(es) Dates Sig (Normalized) Sig (Original) acetaminophen 32 mg/ml oral solution (20 sources) Start: 08-14-2008 End: 03-17-2022 acetaminophen (TYLENOL) 160 mg/5 mL (5 mL) Soln Take 81 mg by mouth as needed . 0 08/14/2008 03/17/2022 Discontinued (Patient's Request) amLODIPine 2.5 mg oral tablet (20 sources) Dihydropyridine Calcium Channel [place] Start: 03-21-2025 take 1 tablet by mouth twice daily amLODIPine (NORVASC) 2.5 mg tablet Indications: Essential hypertension, benign Take 1 tablet by mouth two times a day. 180 tablet 03/21/2025 Active Start: 11-21-2024 End: 11-21-2024 take 1 tablet by mouth twice daily amLODIPine (NORVASC) 2.5 mg tablet Indications: Essential hypertension, benign Take 1 tablet by mouth two times a day. 180 tablet 03/21/2025 Active Start: 08-24-2024 End: 03-21-2025 take 0.5 tablet by mouth twice daily amLODIPine (NORVASC) 5 mg tablet Take 0.5 tablets by mouth two times a day. 08/24/2024 03/21/2025 Discontinued (Duplicate Entry) Start: 08-01-2024 amLODIPine (NO RVASC) 5 MG tablet Take 1 (one) tablet (5 mg total) by mouth See Admin Instructions . 135 tablet 3 08/01/2024 Active Start: 07-12-2019 End: 08-24-2024 take 1 tablet by mouth once daily Amlodipine 5 MG tablet Active 5 mg PO DAILY July 13, 2020 12:00am Comment on above: Take 1 tablet by evaristo th in the mornings and 1/2 tablet (2.5 mg) in the evenings aspirin 81 mg delayed release oral tablet (20 sources) Nonsteroidal Anti-inflammatory Drug Start: 08-05-2017 take 1 tablet by mouth once daily aspirin 81 MG EC tablet Take 1 (one) tablet (81 mg total) by mouth daily . 08/05/2017 Active Start: 08-05-2017 ADULT ASPIRIN EC LOW STRENGTH 81 MG TBEC daily ASPIRIN [id number] Roger Espinosa MD Comment on above: Take 81 mg by mouth once daily. atenolol 50 mg oral tablet (20 sources) beta-Adrenergic [place] Start: 03-21-2025 take 1 tablet by mouth once daily atenolol (TENORMIN) 50 mg tablet Indications: Hypertrophic cardiomyopathy (HCC) , Essential hypertension, benign Take 1 tablet by mouth once daily. 03/21/2025 Active Start: 10-23-2016 End: 03-21-2025 take 1 tablet by mouth twice daily atenolol (TENORMIN) 50 MG tablet Indications: Essential hypertension Take 1 (one) tablet (50 mg total) by mouth 2 (two) times a day. 180 tablet 3 11/04/2017 Active Comment on above: Take 1 tablet by [facility] twice daily. Take 1 tablet by [facility] two times a day. azithromycin 250 mg oral tablet (1 source) Macrolide Antimicrobial Start: 01-08-2023 End: 01-13-2023 azithromycin (ZITHROMAX Z-JIMMIE) 250 mg tablet Indications: Sinobronchitis Take 2 tablets day one, then, 1 tablet daily until gone. 6 tablet 0 01/08/2023 01/13/2023 Active Comment on above: Take 2 tablets day o ne, then, 1 tablet daily until gone. calcium carbonate 1500 mg / cholecalciferol 200 unt oral tablet (20 sources) Vitamin D Start: 07-13-2020 Calcium Carbonate-Vitamin D3 Active 1 EACH PO DAILY July 13, 2020 11:30am Start: 07-13-2020 Calcium Carbon ate-Vitamin D3 1 EACH tablet Active 1 NMA PO DAILY July 13, 2020 12:00am Start: 08-29-2011 take 1 tablet by [facility] twice daily calcium carbonate 600 mg-cholecalciferol 200 units 600 mg-5 mcg (200 unit) tab Indications: Lumbago Take 1 tablet by mouth twice daily. 0 08/29/2011 Active Start: 01-27-2011 take 1 tablet by [facility] once daily calcium carbonate-vitamin D3 500 mg-10 mcg (400 unit) Tab Take 500 mg by mouth daily 01/27/2011 Active Start: 01-27-2011 calcium carbon ate-vitamin D3 (CALCIUM 500 WITH D) 500 mg(1,250mg) -400 unit Tab Take 500 mg by mouth daily 0 01/27/2011 Active Start: 01-27-2011 calcium carbon ate-vitamin D3 (CALCIUM 500 WITH D) 500 mg(1,250mg) -400 unit Tab Take 500 mg by mouth daily 0 01/27/2011 Active Comment on above: Take 1 tablet by [facility] twice daily. CENTRUM SILVER TAB (20 sources) Start: 10-27-2005 CENTRUM SILVER TAB 0 10/27/2005 Active Start: 10-27-2005 CENTRUM SILVER TAB enteric contrast (will be provided with radiology test) (1 source) Start: 03-13-2022 End: 03-14-2022 enteric contrast (will be provided with radiology test) For CT CHESTABD/PEL W IVCON Routine order Administer, As Directed One Time Only, via Oral, Rectal, both Oral and Rectal, Enteric Tube, Stoma or Indwelling Catheter, Enteric Contrast as designated per enteric contrast guidelines 1 Each 0 03/13/2022 03/14/2022 Active Comment on above: For CT CHESTABD/PEL W IVCON Routine order Administer, As Directed One Time Only, via Oral, Rectal, both Oral and Rectal, Enteric Tube, Stoma or Indwelling Catheter, Enteric Contrast as designated per enteric contrast guidelines finasteride 5 mg oral tablet (20 sources) 5-alpha Reductase Inhibitor Start: 03-06-2022 End: 09-10-2022 take 1 tablet by mouth once daily finasteride (PROSCAR) 5 mg tablet Take 1 (one) tablet (5 mg total) by mouth daily . 03/06/2022 Active Comment on above: [facility] f[facility]semide 20 mg oral tablet (20 sources) Loop Diuretic Start: 09-12-2024 take 1 tablet by mouth once daily as needed furosemide (LASIX) 20 MG tablet Take 1 (one) tablet (20 mg total) by mouth daily as needed . 90 tablet 3 09/12/2024 Active Start: 06-23-2022 End: 11-02-2023 take 1 tablet by mouth once daily as needed furosemide (LASIX) 20 MG tablet Take 1 (one) tablet (20 mg total) by mouth daily as needed . 90 tablet 3 11/02/2023 Active Start: 07-13-2020 End: 06-03-2021 take 20 mg by mouth every other day Furosemide Discontinued 20 MG PO EVERY OTHER DAY July 13, 2020 11:30am June 03, 2021 2:39pm take 2 tablets by mo [facility] once daily, then take 1 tablet by mouth once daily furosemide (LASIX) 20 mg tablet Indications: Edema of left lower leg Take 40 mg by mouth once daily. Using 20mg per day currently. Active Comment on above: Take 20 mg by mouth as needed. 12 hr guaiFENesin 600 mg extended release oral tablet (20 sources) Start: 09-16-2023 End: 03-27-2024 take 1 tablet by mouth twice daily guaiFENesin (MUCINEX) 600 mg 12 hr tablet Indications: ILD (interstitial lung disease) (HCC) Take 1 tablet by mouth two times a day. 180 tablet 1 03/28/2024 Active Start: 04-01-2023 take 1 tablet by evaristo th twice daily guaiFENesin (MUCINEX) 600 mg 12 hr tablet Take 1 tablet by mouth twice daily. 60 tablet 3 04/01/2023 Active Comment on above: Take 1 tablet by evaristo th twice daily. Take 1 tablet by evaristo th two times a day. ipratropium bromide 0.2 mg/ml inhalation solution (20 sources) Anticholinergic Start: 04-21-2024 End: 04-21-2024 ipratropium (ATROVENT) 0.02 % nebulizer solution Indications: Bronchiectasis without complication (HCC) , Small airways disease Use 2.5 mL via nebulizer three times a day. OVER 5-15 MINUTES FOR WHEEZING OR SHORTNESS OF BREATH 150 mL 5 04/21/2024 Active Start: 10-05-2023 End: 03-18-2024 take 2 puff(s) by inhalation twice daily Ipratropium (ATROVENT HFA) 17 mcg/actuation inhaler Inhale 2 Puffs as instructed two times a day. 1 Each 5 10/05/2023 03/18/2024 Discontinued (Course of therapy completed) Comment on above: Inhale 2 Puffs as in structed two times a day. iv contrast (will be provided with radiology test) (1 source) Start: 03-13-2022 End: 03-14-2022 iv contrast (will be provided with radiology test) CT Chest ABD/PEL-Inject, intravenously, once for 1 dose.No IV access, insert saline lock prior to the beginning of sedation, infusion, injection of imaging exam. Discontinue saline lock post exam. If Pt. has a central line or IVAD, may access for administration according to line specific nursing protocol. Once exam is complete flush line and de-access according to line specific nursing protocol in the CT contrast administration guidelines link. 1 Each 0 03/13/2022 03/14/2022 Active Comment on above: CT Chest ABD/PEL-Inj ect, intravenously, once for 1 dose.No IV access, insert saline lock prior to the beginning of sedation, infusion, injection of imaging exam. Discontinue saline lock post exam. If Pt. has a central line or IVAD, may access for administration according to line specific nursing protocol. Once exam is complete flush line and de-access according to line specific nursing protocol in the CT contrast administration guidelines link. Lancing Device misc (20 sources) Start: 11-18-2023 Lancing Device misc Indications: Type 2 diabetes mellitus without complication, without long-term current use of insulin (HCC) 1 Each once daily. 1 Each 11/18/2023 Active Start: 11-18-2023 Lancing Device misc Indications: Type 2 diabetes mellitus without complication, without long-term current use of insulin (HCC) 1 Each once daily. 1 Each 0 11/18/2023 Active Comment on above: 1 Each once daily. lisinopril 40 mg oral tablet (20 sources) Angiotensin Converting Enzyme Inhibitor Start: 11-26-19 23 End: 10-30-20 24 take 1 tablet by mouth once daily lisinopril (ZESTRIL) 40 mg tablet Take 40 mg by mouth once daily. 02/16/2023 Active Comment on above: Take 40 mg by mouth once daily. lovastatin 40 mg oral tablet (20 sources) HMG-CoA Reductase Inhibitor Start: 09-24-20 16 End: 09-21-20 24 take 2 tablets by mouth once daily at bedtime for hyperlipidemia lovastatin 40 mg tablet Take 2 tablets by mouth daily at bedtime. For cholesterol. 180 tablet 3 09/21/2024 Active Start: 09-24-2016 take 1 tablet by evaristo th twice daily lovastatin (MEVACOR) 40 MG tablet Take 1 tablet by mouth 2 (two) times a day. 0 09/24/2016 Active Comment on above: Take 2 tablets by mo [facility] daily at bedtime. For cholesterol. 24 hr metFORMIN hydrochloride 500 mg extended release oral tablet (20 sources) Biguanide Start: 07-13-20 20 End: 09-04-20 24 take 2 tablets by mouth once daily at breakfast metFORMIN ER (GLUCOPHAGE XR) 500 mg 24 hr tablet Indications: Controlled type 2 diabetes mellitus without complication, without long-term current use of insulin (HCC) Take 2 tablets by mouth daily with breakfast. 180 tablet 3 09/05/2024 Active take 1 tablet by evaristo th twice daily at mealtime metFORMIN (GLUCOPHAGE) 500 MG tablet Varun e 1 (one) tablet (500 mg total) by mouth 2 (two) times a day with meals . Active take 1 tablet by mouth once melida y metFORMIN (GLUCOPHAGE) 500 MG tablet Take 1 (one) tablet (500 mg total) by mouth once daily . 0 Active Comment on above: Take 1 tablet by evaristo th daily with breakfast. Take 2 tablets by mo uth daily with breakfast. Mucus Clearing Device nadir (20 sources) Start: 04-01-2023 Mucus Clearing Device nadir Provide mucus clearing device 1 Each 04/01/2023 Active Start: 04-01-2023 Mucus Clearing Device nadir Provide mucus clearing device 1 Each 0 04/01/2023 Active Comment on above: Provide mucus cleari ng device Qdfeekoa-Nyf-Ji-Ly copen-Lutein (Centrum Silver) 1 EACH tablet (2 sources) Start: 08-11-2017 take 1 tablet by mouth once daily Wmkyvkiq-Xpb-Yp-Lyco pen-Lutein (Centrum Silver) 1 EACH tablet Active 1 EACH PO DAILY August 11, 2017 1:49pm Start: 08-11-2017 take 1 tablet by evaristo th once daily Dnqjoywi-Aly-Xo-Lycopen-Lutein (Centrum Silver) 1 EACH tablet Active 1 NMA PO DAILY August 11, 2017 12:00am multivitamin (THERAGRAN) per tablet (19 sources) take 1 tablet by evaristo th once daily multivitamin (THERAGRAN) per tablet Take 1 (one) tablet by mouth daily . Active take 1 tablet by mouth once melida y multivitamin (THERAGRAN) per tablet Take 1 (one) tablet by mouth daily . 0 Active take 1 tablet by mouth once melida y multivitamin (THERAGRAN) per tablet Take 1 tablet by mouth daily . 0 Active omeprazole 40 mg delayed release oral capsule (20 sources) Proton Pump Inhibitor Start: 10-15-2016 End: 01-22-2025 take 1 capsule by mouth twice daily omeprazole (PRILOSEC) 40 mg capsule Indications: Esophageal reflux Take 1 capsule by mouth two times a day. 180 capsule 3 01/23/2025 Active Comment on above: Take 1 capsule by mo ut twice daily. Take 1 capsule by mo ut two times a day. oxyCODONE hydrochloride 5 mg oral tablet (4 sources) Opioid Agonist Start: 06-03-2021 take 1 tablet by mouth twice daily Oxycodone (Roxicodone) 5 mg tablet Active 5 MG PO TWICE A DAY June 03, 2021 2:44pm Start: 07-17-2020 End: 07-24-2020 take 10 mg by mouth every four hours as needed Oxycodone Discontinued 10 MG PO EVERY 4 HOURS NEEDED 30 7 July 17, 2020 4:39pm July 24, 2020 12:02am Start: 07-17-2020 End: 07-24-2020 take 2 tablets by mouth every four hours as needed for pain Oxycodone 5 MG tablet Discontinued 10 mg PO EVERY 4 HOURS NEEDED as needed for Pain Score 4-5/10 30 7 July 17, 2020 July 23, 2020 12:00am July 24, 2020 12:02am polyethylene glycol 3350 15260 mg powder for oral solution (20 sources) Osmotic Laxative Start: 03-02-2020 polyethylene glycol 3350 (MIRALAX, GLYCOLAX) 17 gram/dose powder Take 17 g by mouth once daily. 1 Bottle 5 03/02/2020 Active Comment on above: Take 17 g by mouth o nce daily. predniSONE 20 mg oral tablet (1 source) Start: 08-23-2024 End: 08-28-2024 take 1 tablet by mouth once daily predniSONE (DELTASONE) 20 mg tablet Indications: Bronchitis , ILD (interstitial lung disease) (HCC) Take 1 tablet by mouth once daily for 5 days. 5 tablet 08/23/2024 08/28/2024 Active simethicone 80 mg chewable tablet (2 sources) Start: 06-03-2021 Simethicone Ac tive 80 MG PO 2 to 4 times per day June 03, 2021 2:45pm Completed/Discontinued Medications Medication Drug Class(es) Dates Sig (Normalized) Sig (Original) acetaminophen 325 mg / HYDROcodone bitartrate 7.5 mg oral tablet (20 sources) Opioid Agonist Start: 07-13-2020 End: 06-03-2021 Hydrocodone-Acetami nophen Discontinued 1 EACH PO TWICE A DAY July 13, 2020 11:30am June 03, 2021 2:37pm Start: 07-13-2020 End: 06-03-2021 Hydrocodone-Acetaminophen 1 EACH tablet Discontinued 1 NMA PO TWICE A DAY July 13, 2020 12:00am June 03, 2021 2:37pm Start: 01-11-2020 take 1 tablet by [facility] every twelve hours as needed HYDROcodone-acetaminophen (NORCO) 5-325 mg per tablet Take 1 tablet by mouth twice daily as needed. 01/11/2020 Active Comment on above: [facility]. bifidobacterium infantis 4 mg oral capsule (18 sources) Start: 03-10-20 End: 03-11-20 take 1 capsule by mouth once daily Bifidobacterium Infantis (ALIGN) 4 mg cap Take 1 capsule by mouth once daily. 30 capsule 0 03/10/2022 03/11/2023 Discontinued Comment on above: Take 1 capsule by mo [facility] once daily. calcium carbonate (2 sources) Start: 08-05-20 DENNIS-CARB FORTE TABS one tablet twice daily CALCIUM CARBONATE TABS [id number] Roger Espinosa MD docusate sodium 100 mg oral capsule (6 sources) Start: 07-13-20 End: 06-03-20 take 1 capsule by mouth once daily Docusate Sodium 100 MG capsule Discontinued 100 mg PO DAILY July 16, 2020 1:42pm June 03, 2021 2:45pm fish oil (3 sources) Start: 08-05-20 [facility] FISH OIL CAPS one tablet twice daily OMEGA-3 FATTY ACIDS CAPS [id number] Roger Espinosa MD Start: 08-23-2010 End: 08-20-2017 take 1000 capsules by mouth twice daily omega-3 fatty acids-fish oil 340-1,000 mg cap Take 1,000 capsules by mouth 2 (two) times a day 08/23/2010 08/20/2017 Discontinued gabapentin 600 mg oral tablet (7 sources) Anti-epileptic Agent Start: 07-13-2020 End: 06-03-2021 take 600 mg by mouth three times daily Gabapentin Discontinued 600 MG PO THREE TIMES A DAY July 13, 2020 11:30am June 03, 2021 2:40pm Start: 08-24-2015 End: 09-04-2017 NEURONTIN 100 MG CAPS one ca psule twice daily GABAPENTIN [id number] Roger Espinosa MD gadoterate meglumine (DOTAREM) injection 36 mL (1 source) Start: 11-30-2020 End: 11-30-2020 gadoterate meglumine (DOTAREM) injection 36 mL hydroCHLOROthiazide 25 mg oral tablet (5 sources) Thiazide Diuretic Start: 10-23-2016 End: 09-04-2017 HYDROCHLOROTHIAZIDE 25 MG TABS once daily HYDROCHLOROTHIAZIDE [id number] Roger Espinosa MD meloxicam 7.5 mg oral tablet (18 sources) Nonsteroidal Anti-inflammator y Drug Start: 09-01-2019 End: 07-25-2021 take 1 tablet by mouth once daily Meloxicam 7.5 MG tablet Discontinued 7.5 mg PO DAILY 1 July 17, 2020 4:44pm June 03, 2021 2:33pm resume after Medrol dose jimmie finished Start: 11-01-2012 End: 09-04-2017 MOBIC 7.5 MG TABS one tablet daily MELOXICAM [id number] Roger Espinosa MD methylPREDNISolone 4 mg oral tablet (4 sources) Corticosteroid Start: 07-17-2020 End: 06-03-2021 Methylprednisolone Discontinued 4 MG PO 0800,1200,1700 July 17, 2020 4:39pm June 03, 2021 2:37pm Start: 08-16-2017 End: 08-19-2018 take 1 tablet by mouth once daily methylPREDNISolone (MEDROL DOSEPACK) 4 mg tablet Take 1 tablet by mouth daily. 08/16/2017 08/19/2018 Discontinued MULTIPLE VITAMINS-MINERALS (2 sources) Start: 08-05-2017 CENTRUM SILVER TABS one tab daily MULTIPLE VITAMINS-MINERALS [id number] Roger Espinosa MD quinapril 40 mg oral tablet (20 sources) Angiotensin Converting Enzyme Inhibitor Start: 10-08-2020 End: 10-11-2020 take 1 tablet by mouth once daily quinapriL (ACCUPRIL) 20 MG tablet Indications: Essential hypertension Take 1 (one) tablet (20 mg total) by mouth daily . 90 tablet 0 10/08/2020 10/11/2020 Discontinued (Dose adjustment) Start: 12-11-2010 End: 04-01-2023 take 1 tablet by mouth once daily Quinapril (Accupril) 40 MG tablet Active 40 mg PO DAILY August 11, 2017 12:00am Comment on above: Take one(1) tablet d aily.PER DR NELSON tamsulosin hydrochloride 0.4 mg oral capsule (20 sources) alpha-Adrenergic [place] Start: 3 End: 09-02-202 1 take 1 capsule by mouth once daily tamsulosin (FLOMAX) 0.4 mg capsule Take 0.4 mg by mouth daily 0 09/20/2013 07/25/2021 Discontinued (Patient's Request) Problems Active Problems Problem Classification Problem Date Documented Da te Episodic/Chronic Abdominal pain (4 sources) Generalized abdominal pain; Translations: [Generalized abdominal pain] Episodic Cancer of prostate (7 sources) Malignant tumor of prostate; Translations: [Malignant neoplasm of prostate] Onset: 7 08-05-2017 Chronic Cardiac dysrhythmias (1 source) Palpitations; Translations: [Palpitations] Episodic Chronic obstructive pulmonary disease and bronchiectasis (4 sources) Bronchiectasis; Translations: [Bronchiectasis, uncomplicated] Onset: 5 04-21-2024 Chronic Chronic obstructive pulmonary disease and bronchiectasis (1 source) Bronchitis; Translations: [Bronchitis, not specified as acute or chronic] 08-23-2024 Episodic Conditions associated with dizziness or vertigo (20 sources) Dizziness and giddiness; Translations: [Postural dizziness] Onset: 5 Resolved: 1 09-17-2015 Episodic Diabetes mellitus without complication (20 sources) Type 2 diabetes mellitus without complication; Translations: [Type 2 diabetes mellitus without complications] Onset: 9 10-04-2019 Chronic Disorders of lipid metabolism (20 sources) Hyperlipidemia; Translations: [Mixed hyperlipidemia] Onset: 5 09-17-2015 Chronic Esophageal disorders (20 sources) Gastroesophageal reflux disease; Translations: [Gastro-esophageal reflux disease without esophagitis] Onset: 7 08-05-2017 Chronic Essential hypertension (20 sources) Essential hypertension; Translations: [Hypertensive disorder] Onset: 5 09-17-2015 Chronic Hyperplasia of prostate (20 sources) Benign prostatic hyperplasia; Translations: [Benign prostatic hyperplasia with lower urinary tract symptoms] Onset: 3 04-01-2019 Chronic Immunizations and screening for infectious disease (4 sources) Needs influenza immunization; Translations: [Encounter for immunization] Episodic Joint disorders and dislocations; trauma-related (20 sources) Acetabular labrum tear; Translations: [Other articular cartilage disorders, right hip] Onset: 0 07-19-2020 Chronic Occlusion or stenosis of precerebral arteries (20 sources) Carotid artery stenosis; Translations: [Occlusion and stenosis of unspecified carotid artery] Onset: 5 09-17-2015 Chronic Osteoarthritis (20 sources) Degenerative joint disease involving multiple joints; Translations: [Polyosteoarthritis, unspecified] 10-27-2005 Chronic Other aftercare (2 sources) Radiotherapy follow-up; Translations: [Encounter for follow-up examination after completed treatment for conditions other than malignant neoplasm] Episodic Other and ill-defined heart disease (1 source) Heart disease; Translations: [Other ill-defined heart diseases] Chronic Other ear and sense organ disorders (20 sources) Hearing loss of right ear; Translations: [Unspecified hearing loss, right ear] Onset: 5 08-30-2015 Chronic Other gastrointestinal disorders (3 sources) Constipation; Translations: [Constipation, unspecified] Episodic Other gastrointestinal disorders (1 source) Passing flatus; Translations: [Flatulence] Episodic Other gastrointestinal disorders (2 sources) Abdominal distension, gaseous; Translations: [Abdominal distension (gaseous)] Episodic Other lower respiratory disease (20 sources) Interstitial lung disease; Translations: [Interstitial pulmonary disease, unspecified] Onset: 0 Chronic Other lower respiratory disease (2 sources) Interstitial pulmonary disease, unspecified; Translations: [Interstitial pulmonary disease (HCC)] Onset: 1 Chronic Other lower respiratory disease (2 sources) Wheezing; Translations: [Wheezing] Episodic Other lower respiratory disease (1 source) Hemoptysis; Translations: [Hemoptysis] Episodic Other lower respiratory disease (1 source) Disorder of lung; Translations: [Other disorders of lung] 04-21-2024 Episodic Other non-traumatic joint disorders (8 sources) Hip pain; Translations: [Pain in joint, pelvic region and thigh] Episodic Other nutritional; endocrine; and metabolic disorders (20 sources) Obese class I; Translations: [Obesity, unspecified] Onset: 9 04-01-2019 Chronic Other nutritional; endocrine; and metabolic disorders (2 sources) Weight loss; Translations: [Abnormal weight loss] Episodic Other upper respiratory disease (20 sources) Allergic rhinitis; Translations: [Allergic rhinitis, unspecified] 10-27-2005 Chronic Other upper respiratory infections (2 sources) Chronic sinusitis; Translations: [Chronic sinusitis, unspecified] Chronic Debra-; endo-; and myocarditis; cardiomyopathy (20 sources) 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; Translations: [Hypertrophic cardiomyopathy] Onset: 5 09-17-2015 Chronic Residual codes; unclassified (1 source) Edema of left lower leg; Translations: [Localized edema] Episodic Residual codes; unclassified (1 source) Early satiety; Translations: [Early satiety] Episodic Residual codes; unclassified (1 source) Edema; Translations: [Edema, unspecified] 02-11-2024 Episodic Residual codes; unclassified (1 source) Localized edema; Translations: [Localized edema] 02-11-2024 Episodic Spondylosis; intervertebral disc disorders; other back problems (20 sources) Cervical disc disorder; Translations: [Cervical disc disorder, unspecified, unspecified cervical region] Onset: 5 10-28-2005 Chronic Spondylosis; intervertebral disc disorders; other back problems (20 sources) Low back pain; Translations: [Lumbar radiculopathy] Onset: 1 08-05-2017 Episodic Spondylosis; intervertebral disc disorders; other back problems (20 sources) Low back pain co-occurrent and due to bilateral sciatica; Translations: [Low back pain due to bilateral sciatica] Onset: 9 07-20-2019 Substance-related disorders (1 source) Opioid dependence, uncomplicated; Translations: [Opioid dependence, uncomplicated] Onset: 5 Chronic Unclassified (3 sources) Abnormal electrocardiogram [ECG] [EKG]; Translations: [Pulmonary function studies abnormal] Onset: 8 Episodic Unclassified (1 source) Unknown / UNK(Unknown) Onset: 3 Past or Other Problems Problem Classification Problem Date Documented Da te Episodic/Chronic Allergic reactions (20 sources) Solar degeneration; Translations: [Other skin changes due to chronic exposure to nonionizing radiation] Onset: 2 Resolved: 4 09-02-2012 Episodic Cancer of prostate (20 sources) History of malignant neoplasm of prostate; Translations: [Personal history of malignant neoplasm of prostate] Onset: 6 02-26-2021 Episodic Coagulation and hemorrhagic disorders (20 sources) Thrombocytopenic disorder; Translations: [Thrombocytopenia, unspecified] Onset: 9 Resolved: 1 02-28-2021 Chronic Conditions associated with dizziness or vertigo (1 source) Conditions associated with dizziness or vertigo Conduction disorders (20 sources) Right bundle branch block AND left anterior fascicular block; Translations: [Bifascicular block] Onset: 5 Resolved: 4 09-17-2015 Chronic Diabetes mellitus without complication (20 sources) Impaired fasting glycemia; Translations: [Impaired fasting glucose] Onset: 1 Resolved: 0 10-25-2020 Episodic Diverticulosis and diverticulitis (20 sources) Diverticulosis of colon; Translations: [Diverticulosis of large intestine without perforation or abscess without bleeding] Resolved: 6 06-23-2006 Chronic Gastrointestinal hemorrhage (20 sources) Rectal hemorrhage; Translations: [Hemorrhage of rectum and anus] Onset: 7 Resolved: 9 08-05-2017 Episodic Genitourinary congenital anomalies (20 sources) Cyst of kidney; Translations: [Cystic kidney disease, unspecified] Onset: 1 Resolved: 1 11-18-2021 Chronic Genitourinary symptoms and ill-defined conditions (20 sources) Frequency of micturition; Translations: [Gross hematuria] Onset: 3 Resolved: 9 04-01-2019 Episodic Hemorrhoids (20 sources) Internal hemorrhoids; Translations: [Other hemorrhoids] Onset: 8 Resolved: 0 06-23-2006 Episodic Nausea and vomiting (20 sources) Nausea; Translations: [Nausea] Onset: 1 Resolved: 1 08-01-2021 Episodic Neoplasms of unspecified nature or uncertain behavior (20 sources) Neoplasm of uncertain behavior of skin; Translations: [Neoplasm of uncertain behavior of skin] Onset: 8 Resolved: 9 08-20-2009 Episodic Nonspecific chest pain (20 sources) Chest pain; Translations: [Chest pain, unspecified] Onset: 5 09-17-2015 Episodic Other and unspecified benign neoplasm (20 sources) Benign neoplasm of skin of trunk; Translations: [Other benign neoplasm of skin of trunk] Onset: 8 Resolved: 2 09-02-2012 Episodic Other and unspecified benign neoplasm (20 sources) Benign tumor of head and neck; Translations: [Other benign neoplasm of skin of scalp and neck] Onset: 8 Resolved: 9 08-20-2009 Episodic Other and unspecified benign neoplasm (20 sources) Dysplastic nevus of trunk; Translations: [Melanocytic nevi of trunk] Onset: 2 Resolved: 2 09-02-2012 Episodic Other and unspecified benign neoplasm (20 sources) Senile angioma; Translations: [Hemangioma of skin and subcutaneous tissue] Onset: 2 Resolved: 2 09-02-2012 Episodic Other and unspecified benign neoplasm (20 sources) Melanocytic nevus of trunk; Translations: [Melanocytic nevi of trunk] Onset: 2 Resolved: 5 08-30-2015 Episodic Other circulatory disease (20 sources) Disorder of carotid artery; Translations: [Disorder of arteries and arterioles, unspecified] Onset: 5 Resolved: 1 09-20-2018 Chronic Other diseases of kidney and ureters (2 sources) Renal mass; Translations: [Cyst of kidney, acquired] Onset: 7 08-05-2017 Episodic Other diseases of kidney and ureters (20 sources) Cyst of kidney; Translations: [Cyst of kidney, acquired] Onset: 3 Resolved: 9 10-05-2019 Episodic Other endocrine disorders (20 sources) Hypoglycemia; Translations: [Hypoglycemia, unspecified] Onset: 8 Resolved: 1 08-29-2011 Chronic Other gastrointestinal disorders (20 sources) Abdominal bloating; Translations: [Abdominal distension (gaseous)] Onset: 1 Resolved: 1 Episodic Other male genital disorders (20 sources) Pain in testicle; Translations: [Testicular pain, unspecified] Onset: 3 Resolved: 4 09-07-2014 Episodic Other skin disorders (20 sources) Inflamed seborrheic keratosis; Translations: [Inflamed seborrheic keratosis] Onset: 8 Resolved: 2 08-20-2009 Episodic Other skin disorders (20 sources) Seborrheic keratosis; Translations: [Other seborrheic keratosis] Onset: 8 Resolved: 9 10-05-2019 Episodic Other skin disorders (20 sources) Disorder of skin pigmentation; Translations: [Disorder of pigmentation, unspecified] Onset: 8 Resolved: 9 08-20-2009 Episodic Other skin disorders (20 sources) Actinic keratosis; Translations: [Actinic keratosis] Onset: 2 Resolved: 5 08-30-2015 Episodic Other skin disorders (20 sources) Skin tag; Translations: [Other hypertrophic disorders of the skin] Onset: 2 Resolved: 2 09-02-2012 Episodic Other skin disorders (20 sources) Solar lentigo; Translations: [Other melanin hyperpigmentation] Onset: 2 Resolved: 4 09-07-2014 Episodic Other skin disorders (20 sources) Scar; Translations: [Scar conditions and fibrosis of skin] Onset: 2 Resolved: 2 09-02-2012 Episodic Other skin disorders (20 sources) Asteatosis cutis; Translations: [Xerosis cutis] Onset: 3 Resolved: 4 09-07-2014 Episodic Other skin disorders (20 sources) Keratosis pilaris; Translations: [Other specified epidermal thickening] Onset: 3 Resolved: 4 09-07-2014 Episodic Rehabilitation care; fitting of prostheses; and adjustment of devices (20 sources) Patient encounter status; Translations: [Other physical therapy] Onset: 1 Resolved: 1 08-29-2011 Episodic Unclassified (1 source) Frequency of micturition Onset: 8 Viral infection (20 sources) Verruca vulgaris; Translations: [Viral wart, unspecified] Onset: 8 Resolved: 2 08-20-2009 Episodic NEGATED: Highlighted row has not occurred!Residual codes; unclassified (14 sources) Disease Episodic Results Test Name Value Interpretation Reference Range Facility CNOVon 06-09-2025 CNOV Office Visit (P[facility] ) -- AYLEEN MILLAN V ([id number]) 1940 M Date Time Provider Department 06/09/25 2:00 PM [facility] During your visit today, we recorded the following information about you: Pulse Respiration Blood pressure Weight 63/minute 17/minute 120/62 96.6 kg Shelby Grimes APRN.[facility] 06/09/2025 2:39 PM Signed Pulmonary Medicine Patients name: Ayleen Millan PCP: Alonso Wheat MD CC: follow-up HPI: Ayleen Millan is a 84 year old male non-smoker with PMH significant for HTN, PAD, GERD, AVM with GIB, prostate cancer s/p XRT, DM, HOCM, bronchiectasis, and pulmonary fibrosis. ILD dates back to 2012. No known drug exposures, occupational exposures, autoimmune disorder. Has intermittent wheezing but intolerant of CJ/LABA due to tachycardia. Cannot afford LAMA. Wheezing improved with use of acapella device and nebulized ipratropium bromide. DESIREE 10/2024, had updated chest imaging which showed stability in fibrotic changes. Not currently on inhaled therapy. He presents today for follow-up with his . Overall reports no change in symptoms since his last visit. Feels well. Denies significant cough, chest tightness or shortness of breath. Notes wheezing often, most significantly at night. He is not bothered by it but will keep his awake. No recent fevers, chills, or night sweats. No unintended weight loss. No recent hospitalizations or ED visits or upper respiratory infections. Has flutter valve and uses it intermittently. Uses Mucinex BID. Rarely uses Atrovent. PAST MEDICAL HISTORY Diagnosis Date Allergic rhinitis, cause unspecified Arthritis AVM (arteriovenous malformation) of colon with hemorrhage 08/13/2017 Benign prostatic hyperplasia with lower urinary tract symptoms 03/08/2013 Bundle branch block, unspecified Carotid disease, bilateral 08/30/2015 CHR SOLAR SKIN DAMAGE NOS 08/21/2008 Controlled type 2 diabetes mellitus without complication, without long-term current use of insulin ([facility]) 10/04/2019 Degenerative tear of acetabular labrum of right hip 07/19/2020 Diverticulosis of colon (without mention of hemorrhage) 08/13/2017 Duplicated ureter, 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 Nelson ILD (interstitial lung disease) ([facility]) 08/13/2020 Impaired fasting glucose 08/29/2011 Lumbago 12/11/2010 Orthostatic dizziness 10/04/2019 Other and unspecified disc disorder of cervical region 10/28/2005 Other and unspecified hyperlipidemia Prostate cancer ([facility]) 05/30/2016 Radiation therapy Renal cyst 09/29/2013 Unspecified gastritis and gastroduodenitis Allergies: Albuterol Intolerance Comment:tachycardia Tramadol Itching Lipitor [Atorvastat* Intolerance Comment:leg cramps Statins [Statins-Hm* Intolerance Comment:leg cramping with most statins Vytorin 09/01 [Ezet* Intolerance Comment:leg cramping Medication List Accurate as of June 09, 2025 2:10 PM. If you have any questions, ask your nurse or doctor. CONTINUE taking these medications aspirin, enteric coated 81 mg EC tablet Commonly known as: ASPIRIN, ENTERIC COATED atenolol 50 mg tablet Commonly known as: TENORMIN Take 1 tablet by mouth once daily. blood sugar diagnostic test strip Commonly known as: BLOOD GLUCOSE TEST Test blood sugar(s) 1 times daily. Dx: Type 2 DM - Controlled E11.9 Insulin: No calcium carbonate 600 mg-cholecalciferol 200 units 600 mg-5 mcg (200 unit) Tab CENTRUM SILVER Tab Generic drug: Pkoboccfjqwkk-Oomgaapq-Tpn ein finasteride 5 mg tablet Commonly known as: PROSCAR furosemide 20 mg tablet Commonly known as: LASIX guaiFENesin 600 mg 12 hr tablet Commonly known as: MUCINEX Take 1 tablet by mouth two times a day. HYDROcodone-acetaminophen 5-325 mg per tablet Commonly known as: NORCO ipratropium 0.02 % nebulizer solution Commonly known as: ATROVENT Use 2.5 mL via nebulizer three times a day. OVER 5-15 MINUTES FOR WHEEZING OR SHORTNESS OF BREATH * Lancets Commonly known as: ONETOUCH ULTRASOFT LANCETS Test blood sugars 1 time daily. Dx: Type 2 DM Controlled E11.9 Insulin: No * Lancets Test blood sugar(s) one times daily. Dx: Type 2 DM - Controlled E11.9 Insulin: No Lancing Device Misc 1 Each once daily. lisinopril 40 mg tablet Commonly known as: ZESTRIL lovastatin 40 mg tablet Take 2 tablets by mouth daily at bedtime. For cholesterol. metFORMIN ER 500 mg 24 hr tablet Commonly known as: GLUCOPHAGE XR Take 2 tablets by mouth daily with breakfast. Mucus Clearing Device Nadir Provide mucus clearing device NORVASC 2.5 mg tablet Generic drug: amLODIPine omeprazole 40 mg capsule Commonly (more content not included)... Normal [facility] [id number] 05-02-2025 [facility] Misc. COMMENT Normal . [facility] Comment on above: Order Comment: [id number] URINE TOX Result Comment: Test Ordered: [id number] Amphetamines Screen, Urine Negative ng/mL UI Reference Range: Rgwkry=109 Amphetamine test includes Amphetamine and Methamphetamine. Barbiturates Negative ng/mL UI Reference Range: Rjolsi=998 Benzodiazepines Negative ng/mL UI Reference Range: Amcjaf=898 Cocaine (Metab.), Urine Negative ng/mL UI Reference Range: Anbzta=765 Opiates Note: ng/mL UI See Final Results Reference Range: Bxkwpc=024 Opiate test includes Codeine, Morphine, Hydromorphone, Hydrocodone. Opiates Positive [A ] UI Reference Range: Dbrvjb=100 Opiate test includes Codeine, Morphine, Hydromorphone, Hydrocodone. Codeine Negative UI Reference Range: Lybqwk=889 Morphine Negative UI Reference Range: Cdwowq=122 Hydromorphone Negative UI Reference Range: Xptrkm=460 Hydrocodone Positive [A ] UI Reference Range: . Hydrocodone Conf, MS, UR 458 ng/mL UI Reference Range: Rcklpl=449 6-Acetylmorphine, Urine Negative ng/mL UI Reference Range: Cutoff=10 Oxycodone/Oxymorphone, Urine Negative ng/mL UI Reference Range: Cmmoxj=767 Test includes Oxycodone and Oxymorphone PCP, Urine Negative ng/mL UI Reference Range: Cutoff=25 Methadone Screen, Urine Negative ng/mL UI Reference Range: Pyeyqx=511 Propoxyphene, Urine Negative ng/mL UI Reference Range: Jopciw=367 Fentanyl, Urine Negative ng/mL UI Reference Range: Cutoff=2.0 Test includes Fentanyl and Norfentanyl This test was developed and its performance characteristics determined by [facility]. It has not been cleared or approved by the Food and Drug Administration. Tramadol Negative ng/mL UI Reference Range: Uencwc=078 Buprenorphine, Urine Negative ng/mL UI Reference Range: Cutoff=10 Creatinine, Urine 54.8 mg/dL UI Reference Range: 20.0-300.0 pH, Urine 5.7 UI Reference Range: 4.5-8.9 Performed at: [facility] [address] [place], [place] [id number] [employer] House Keeper: Sathish Stern PhD, Phone: [phone] Performed at: [address] [id number] [employer] House Keeper: Devyn Monreal PhD, Phone: [phone] Performed By: #### L 505.5000, [id number] #### [facility] [address] [place] [address], [address] ECHOCARDIOGRAM COMPLETEon ECHOCARDIOGRAM COMPLETE Patient Info Name: AYLEEN MILLAN Age: 84 years : 1940 Gender: Male Ht: 175 cm Wt: 94 kg BSA: 2.17 m2 HR: 60 bpm BP: 151 / 73 mmHg Heart Rhythm: Sinus Rhythm Technical Quality: Good Exam Date: 05/01/2025 10:45 AM Patient Status: Outpatient Meringuer: Loni Strong RDCS Exam Type: ECHOCARDIOGRAM COMPLETE Study Info Indications I42.2 - Other hypertrophic cardiomyopathy Referring Physician: ANU BRIGGS ; [id number] BMI: 30.72 kg/m2 Summary 1. Left ventricular systolic function is hyperdynamic with an ejection fraction by Biplane Method of Discs of 81 %. 2. The left ventricular diastolic function is indeterminate with elevated filling pressures. 3. Longitudinal strain of the left ventricle is decreased, -17 %. 4. There is eccentric septal hypertrophy consistent with hypertrophic cardiomyopathy. No signficant gradient noted, max LVOT pressure gradient 18mmHg. 5. Right ventricular size and systolic function are normal. 6. There is valvular and chordal systolic anterior motion of the mitral valve. 7. There is no pulmonary hypertension, estimated right ventricle systolic pressure is 27 mmHg. History/Risk Factors Hypertension: Yes Dyslipidemia: Yes Peripheral Arterial Disease (PAD): Yes Cardiomyopathy/LV Systolic Dysfunction: Yes Tobacco Use: Never History/Risk Factors RBBB. Procedure(s): Complete two-dimensional, color flow and Doppler transthoracic echocardiogram is performed. Left Ventricle Left ventricular chamber dimension is normal. Left ventricular systolic function is hyperdynamic with an ejection fraction by Biplane Method of Discs of 81 %. Normal left ventricular mass. Left ventricular segmental wall motion is normal. The left ventricular diastolic function is indeterminate with elevated filling pressures. Longitudinal strain of the left ventricle is decreased, -17 %. There is eccentric septal hypertrophy consistent with hypertrophic cardiomyopathy. No signficant gradient noted, max LVOT pressure gradient 18mmHg. Right Ventricle Right ventricular size and systolic function are normal. Left Atria Left atrial chamber is normal with a left atrial volume index of 31 ml/m2 by BP MOD. Right Atria Right atrial chamber dimension is normal. Aortic Valve The aortic valve is trileaflet, thickened. There is no aortic valve sclerosis. There is no aortic valve stenosis. There is no aortic valve regurgitation. Pulmonic Valve The pulmonic valve is normal. There is no pulmonic valve stenosis. There is trace pulmonic regurgitation. Mitral Valve There is valvular and chordal systolic anterior motion of the mitral valve. The mitral valve has normal leaflets. There is no mitral valve stenosis. There is no mitral valve regurgitation. Tricuspid Valve The tricuspid valve leaflets are normal. There is no significant tricuspid valve stenosis. There is trace tricuspid valve regurgitation. There is no pulmonary hypertension, estimated right ventricle systolic pressure is 27 mmHg. Pericardium/Pleural There is no pericardial effusion. Inferior Vena Cava Normal inferior vena cava with >50% collapse upon inspiration consistent with normal right atrial pressure. Aorta The aortic measurements are indexed to age and body surface area. The aortic root is normal measuring 3.3 cm with an index of 1.5 cm/m2. The proximal ascending aorta is normal measuring 3.1 cm with an index of 1.4 cm/m2. Wall Motion Scoring Wall Motion Scoring Index: 1.00 Left Ventricular Outflow Tract Name Value Normal LVOT 2D LVOT Diameter 2.3 cm LVOT Doppler LVOT Peak Velocity 1.2 m/s LVOT Peak Gradient 6 mmHg LVOT Mean Gradient 3 mmHg LVOT VTI 30 cm LVOT VTI/AV VTI Ratio 0.5 LVOT Stroke Volume 122 ml LVOT Stroke Index 56.24 ml/m2 Pulmonic Valve Name Value Normal RVOT Doppler RVOT Peak Velocity 43 cm/s RVOT Peak Gradient 1 mmHg RVOT Mean Gradient 0 mmHg RVOT VTI 12 cm PV Doppler PV Peak Velocity 0.98 m/s PV Peak Gradient 4 mmHg PV Mean Gradient 3 mmHg PV VTI 25 cm Mitral Valve Name Value Normal MV Doppler ------- (more content not included)... Normal [facility] Amphetamine detection with 1 000 ng/mL as cutoffOrdered By: Jared Marques on 04-27-2025 Amphetamines Screen method >1000 ng/mL Ql (U) Negative < 200 ng/mL [facility] No Panel InformationOrdered By: Jared Marques on 04-27-2025 Urine Buprenorphine Qualitative Negative < 200 ng/mL [facility] Urine Oxycodone Screen Negative < 100 ng/mL [facility] Quantitative urine opiates m easurementOrdered By: Jared Marques on 04-27-2025 Opiates Ql (U) Positive < 300 ng/mL [facility] Comment on above: If confirmation test ing is needed, a separate order will be required to send out testing to the reference laboratory. Screening urine fentanyl tiesha surementOrdered By: Jared Marques on 04-27-2025 fentaNYL Screen Ql (U) Negative [facility] Urine Drug Screen (VISTA)on 04-27-2025 AMPHETAMINES Negative Normal <1000 ng/mL [facility] Comment on above: Order Comment: UYNK Performed By: #### L 505.5000, L3410.9992 #### [facility] Laboratory [address] [facility] [address] BARBITIURATES Negative Normal < 200 ng/mL [facility] Comment on above: Order Comment: UYNK Performed By: #### L 505.5000, L3410.9992 #### [facility] [address] [facility] [address] BENZODIAZIPINE Negative Normal < 200 ng/mL [facility] Comment on above: Order Comment: UYNK Performed By: #### L 505.5000, L3410.9992 #### [facility] [address] [facility] [address] BUP Ur Drug Scr Negative Normal < 200 ng/mL [facility] Comment on above: Order Comment: UYNK Performed By: #### L 505.5000, L3410.9992 #### [facility] [address] [place] [address] COCAINE Negative Normal < 300 ng/mL [facility] Comment on above: Order Comment: UYNK Performed By: #### L 505.5000, L3410.9992 #### [facility] [address] [place], [address] Fentanyl Negative Normal [facility] Comment on above: Order Comment: UYNK Performed By: #### L 505.5000, L3410.9992 #### [facility] [address] [place], [address] METHADONE Negative Normal < 300 ng/mL [facility] Comment on above: Order Comment: UYNK Performed By: #### L 505.5000, L3410.9992 #### [facility] [address] [place], [address] OPIATES Positive Normal < 300 ng/mL [facility] Comment on above: Order Comment: UYNK Result Comment: If c onfirmation testing is needed, a separate order will be required to send out testing to the reference laboratory. Performed By: #### L 505.5000, L3410.9992 #### [facility] [address] [place], [address] OXYCODONE Negative Normal < 100 ng/mL [facility] Comment on above: Order Comment: UYNK Performed By: #### L 505.5000, L3410.9992 #### [facility] [address] [place], [address] PCP Negative Normal < 25 ng/mL [facility] Comment on above: Order Comment: UYNK Performed By: #### L 505.5000, L3410.9992 #### [facility] [address] [place], [address] THC Negative Normal < 50 ng/mL [facility] Comment on above: Order Comment: UYNK Performed By: #### L 505.5000, L3410.9992 #### [facility] [address] [place], [address] Urine benzodiazepine levelOr dered By: Jared Marques on 04-27-2025 Benzodiazepines Ql (U) Negative < 200 ng/mL [facility] Urine cocaine levelOrdered B y: Jared Batreslove on 04-27-2025 Cocaine Ql (U) Negative < 300 ng/mL [facility] Urine kmgxc-1-zhhyphsjlbzpxt abinol (THC) measurementOrdered By: Jared Batreslove on 04-27-2025 Cannabinoids Screen Ql (U) Negative < 50 ng/mL [facility] Urine phencyclidine (PCP) de tectionOrdered By: Jared Batreslove on 04-27-2025 Phencyclidine Ql (U) Negative < 25 ng/mL [facility] CNOVon 03-21-2025 CNOV Office Visit (INTMWS ) -- AYLEEN MILLAN V ([id number]) 1940 M Date Time Provider Department 03/21/25 10:20 AM ALONSO WHEAT INTMWS During your visit today, we recorded the following information about you: Pulse Respiration Blood pressure Weight 64/minute 24/minute 126/62 93.7 kg Alonso Wheat MD 03/21/2025 11:03 AM Signed This note was created using AOLter. Subjective Patient presents with: F/U 6 months Ayleen Millan is a 84 year old male. He's been dealing with chronic lightheadedness for several months, and felt he was over medicated. His hypertension was well controlled, and bradycardia was noted on a chronic basis. He had no history of arrhythmia or tachycardia. Cardiology followed for HCM and medications were stable. Diabetes was elevating. Lipids were controlled. ILD was monitored. Review of Systems Constitutional: Negative for fatigue. Respiratory: Negative for cough and shortness of breath. Cardiovascular: Negative for chest pain, palpitations and leg swelling. Gastrointestinal: Negative. Musculoskeletal: Negative for gait problem. Neurological: Positive for light-headedness. Negative for dizziness, syncope, facial asymmetry, weakness, numbness and headaches. 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 Benign Prostatic Hyperplasia With Lower Urinary Tract Symptoms Lumbago Hearing Loss in Right Ear History of Prostate Cancer Obesity, Class I, Bmi 30-34.9 Controlled Type 2 Diabetes Mellitus Without Complication, Without Long-Term Current Use of Insulin (Hcc) Degenerative Tear of Acetabular Labrum of Right Hip Ild (Interstitial Lung Disease) (Hcc) Social History Tobacco Use Smoking status: Never Smokeless tobacco: Never Vaping Use Vaping status: Never Used Substance Use Topics Alcohol use: Not Currently Comment: rare Drug use: No Current Outpatient Medications Medication Sig finasteride (PROSCAR) 5 mg tablet Take 5 mg by mouth once daily. omeprazole (PRILOSEC) 40 mg capsule Take 1 capsule by mouth two times a day. atenolol (TENORMIN) 50 mg tablet Take 1 tablet by mouth two times a day. lovastatin 40 mg tablet Take 2 tablets by mouth daily at bedtime. For cholesterol. metFORMIN ER (GLUCOPHAGE XR) 500 mg 24 hr tablet Take 2 tablets by mouth daily with breakfast. amLODIPine (NORVASC) 5 mg tablet Take 0.5 tablets by mouth two times a day. blood sugar diagnostic (BLOOD GLUCOSE TEST) test strip Test blood sugar(s) 1 times daily. Dx: Type 2 DM - Controlled E11.9 Insulin: No ipratropium (ATROVENT) 0.02 % nebulizer solution Use 2.5 mL via nebulizer three times a day. OVER 5-15 MINUTES FOR WHEEZING OR SHORTNESS OF BREATH guaiFENesin (MUCINEX) 600 mg 12 hr tablet Take 1 tablet by mouth two times a day. Lancets (ONETOUCH ULTRASOFT LANCETS) lancets Test blood sugars 1 time daily. Dx: Type 2 DM Controlled E11.9 Insulin: No lisinopril (ZESTRIL) 40 mg tablet Take 40 mg by mouth once daily. Mucus Clearing Device nadir Provide mucus clearing device furosemide (LASIX) 20 mg tablet Take 40 mg by mouth once daily. Using 20mg per day currently. HYDROcodone-acetaminophen (NORCO) 5-325 mg per tablet Take 1 tablet by mouth twice daily as needed. polyethylene glycol 3350 (MIRALAX, GLYCOLAX) 17 gram/dose powder Take 17 g by mouth once daily. aspirin, enteric coated (ASPIRIN, ENTERIC COATED) 81 mg EC tablet Take 81 mg by mouth once daily. calcium carbonate 600 mg-cholecalciferol 200 units 600 mg-5 mcg (200 unit) tab Take 1 tablet by mouth twice daily. CENTRUM SILVER TAB Lancets lancets Test blood sugar(s) one times daily. Dx: Type 2 DM - Controlled E11.9 Insulin: No Lancing Device misc 1 Each once daily. No current facility-administered medications for this visit. Objective BP 126/62 (BP Site: Right Arm, BP Position: Sitting, BP Cuff Size: Large Adult) Pulse 64 Resp 24 Wt 93.7 kg (206 lb 9.1 oz) BMI 31.18 kg/m? Physical Exam Constitutional: Appearance: He is not ill-appearing. Cardiovascular: Rate and Rhythm: Normal rate and regular rhythm. Heart sounds: No murmur heard. No gallop. Pulmonary: Effort: No respiratory distress. Breath sounds: Rales present. No wheezing or rhonchi. Musculoskeletal: Right lower leg: No edema. Left lower leg: No edema. Neurological: General: No focal deficit present. Mental Status: He is alert. Gait: Gait normal. Feet:Shoes and socks removed, No deformities, ulcers, calluses, normal distal pulses, sensitive to 10 gm monofilament, and nails notable for Deformed. Latest Ref Rng 03/15/2025 Protein, Total 6.3 - 8.0 g/dL 6.9 Albumin 3.9 - 4.9 g/dL 4.1 Calcium 8.5 - 10.2 mg/dL (more content not included)... Normal [facility] ALBUMIN/CREATININE RATIO, UR INEon 03-15-2025 Albumin DL <= 20 mg/L (U) [Mass/Vol] 12.8 mg/L Normal [facility] Comment on above: Order Comment: Speci men Type: URINE SPECIMENOrdering Facility: [facility] Address: [address] [place] [address] Performed By: #### U ACR ####[facility] LABCLIA [id number] [place] [address] [place] Albumin/Creatinine (U) [Mass ratio] 15 mg/g Normal <30 [facility] Comment on above: Order Comment: Speci men Type: URINE SPECIMENOrdering Facility: [facility] Address: [address] [place] [address] Result Comment: Adul t Male and Female Nephrotic Criteria: <30 mg/g is considered normal to mildly increased 30-300 mg/g is considered moderately increased >300 mg/g is considered severely increased KDIGO. (2013). KDIGO 2012 Clinical Practice Guideline for the Evaluation and Management of Chronic Kidney Disease. Official Journal of the International Society of Nephrology, 3(1), 1-150. Performed By: #### U ACR ####[facility] LABCLIA [id number] [place] [address] [place] Creatinine (U) [Mass/Vol] 86.0 mg/dL Normal 20.0-300.0 [facility] Comment on above: Order Comment: Speci men Type: URINE SPECIMENOrdering Facility: [facility] Address: [address] [place] [address] Performed By: #### U ACR ####[facility] LABIA [id number] [place] [address] [place] CBC panel Auto (Bld)on 03-15 Erythrocyte distribution width (RBC) [Ratio] 13.4 % Normal 11.5-15.0 [facility] Comment on above: Order Comment: Speci men Type: BLOOD SPECIMENOrdering Facility: [facility] Address: [address] [place] [address] Performed By: #### 5 8410-2 ####[facility] LABIA [id number] [place] [id number] [place] Hematocrit (Bld) [Volume fraction] 41.7 % Normal 39.0-51.0 [facility] Comment on above: Order Comment: Speci men Type: BLOOD SPECIMENOrdering Facility: [facility] Address: [address] [place] [address] Performed By: #### 5 8410-2 ####[facility] LABCLIA [id number] [place] [id number] [place] Hemoglobin (Bld) [Mass/Vol] 13.3 g/dL Normal 13.0-17.0 [facility] Comment on above: Order Comment: Speci men Type: BLOOD SPECIMENOrdering Facility: [facility] Address: [address] [place] [address] Performed By: #### 5 8410-2 ####[facility] LABIA [id number] [address] [place] MCH (RBC) [Entitic mass] 30.0 pg Normal 26.0-34.0 [facility] Comment on above: Order Comment: Speci men Type: BLOOD SPECIMENOrdering Facility: [facility] Address: [address] [place] [address] Performed By: #### 5 8410-2 ####[facility] LABIA [id number] [address] [place] MCHC (RBC) [Mass/Vol] 31.9 g/dL Normal 30.5-36.0 [facility] Comment on above: Order Comment: Speci men Type: BLOOD SPECIMENOrdering Facility: [facility] Address: [address] [place] [address] Performed By: #### 5 8410-2 ####[facility] LABIA [id number] [address] [place] MCV (RBC) [Entitic vol] 93.9 fL Normal 80.0-100.0 [facility] Comment on above: Order Comment: Speci men Type: BLOOD SPECIMENOrdering Facility: [facility] Address: [address] [place] [address] Performed By: #### 5 8410-2 ####[facility] LABIA [id number] [address] [place] Nucleated RBC (Bld) [#/Vol] 10*3/uL Normal <0.01 [facility] Comment on above: Order Comment: Speci men Type: BLOOD SPECIMENOrdering Facility: [facility] Address: [address] [place] [address] Performed By: #### 5 8410-2 ####[facility] LABIA [id number] [place] [address] [place] Platelet mean volume (Bld) [Entitic vol] 10.8 fL Normal 9.0-12.7 [facility] Comment on above: Order Comment: Speci men Type: BLOOD SPECIMENOrdering Facility: [facility] Address: [address] [place] [address] Performed By: #### 5 8410-2 ####[facility] LABIA [id number] [place] [address] [place] Platelets (Bld) [#/Vol] 165 10*3/uL Normal 150-400 [facility] Comment on above: Order Comment: Speci men Type: BLOOD SPECIMENOrdering Facility: [facility] Address: [address] [place] [address] Performed By: #### 5 8410-2 ####[facility] LABIA [id number] [place] [address] [place] RBC (Bld) [#/Vol] 4.44 10*6/uL Normal 4.20-6.00 [facility] Comment on above: Order Comment: Speci men Type: BLOOD SPECIMENOrdering Facility: [facility] Address: [address] [place] [address] Performed By: #### 5 8410-2 ####[facility] LABIA [id number] [place] [address] [place] WBC (Bld) [#/Vol] 7.03 10*3/uL Normal 3.70-11.00 [facility] Comment on above: Order Comment: Speci men Type: BLOOD SPECIMENOrdering Facility: [facility] Address: [address] [place] [address] Performed By: #### 5 8410-2 ####[facility] LABCLIA [id number] [address] [place] [address] [place] Comprehensive metabolic 2000 panelon 03-15-2025 Albumin [Mass/Vol] 4.1 g/dL Normal 3.9-4.9 [facility] Comment on above: Order Comment: Speci men Type: BLOOD SPECIMENOrdering Facility: [facility] Address: [address] [place] [address] Performed By: #### 2 4323-8, 90748-5 ####[facility] LABCLIA [id number] [address] [place] [address] [place] ALP [Catalytic activity/Vol] 84 U/L Normal 38-113 [facility] Comment on above: Order Comment: Speci men Type: BLOOD SPECIMENOrdering Facility: [facility] Address: [address] [place] [address] Performed By: #### 2 4323-8, 69931-2 ####[facility] LABIA [id number] [address] [place] [address] [place] ALT [Catalytic activity/Vol] 19 U/L Normal 10-54 [facility] Comment on above: Order Comment: Speci men Type: BLOOD SPECIMENOrdering Facility: [facility] Address: [address] [place] [address] Performed By: #### 2 4323-8, 38171-9 ####[facility] LABCLIA [id number] [address] [place] [address] [place] Anion gap [Moles/Vol] 9 mmol/L Normal 8-15 [facility] Comment on above: Order Comment: Speci men Type: BLOOD SPECIMENOrdering Facility: [facility] Address: [address] [place], [place] [address] Performed By: #### 2 4323-8, 59884-7 ####[facility] LABCLIA [id number] [address] [place] [address] [place] AST [Catalytic activity/Vol] 24 U/L Normal 14-40 [facility] Comment on above: Order Comment: Speci men Type: BLOOD SPECIMENOrdering Facility: [facility] Address: [address] [place] [address] Performed By: #### 2 4323-8, 10599-6 ####[facility] LABCLIA [id number] [place] [address] [place] Bilirubin [Mass/Vol] 0.4 mg/dL Normal 0.2-1.3 [facility] Comment on above: Order Comment: Speci men Type: BLOOD SPECIMENOrdering Facility: [facility] Address: [address] [place] [address] Performed By: #### 2 4323-8, 35208-2 ####[facility] LABCLIA [id number] [place] [address] [place] Calcium [Mass/Vol] 9.5 mg/dL Normal 8.5-10.2 [facility] Comment on above: Order Comment: Speci men Type: BLOOD SPECIMENOrdering Facility: [facility] Address: [address] [place] [address] Performed By: #### 2 4323-8, 31955-3 ####[facility] LABIA [id number] [place] [address] [place] Chloride [Moles/Vol] 104 mmol/L Normal 98-107 [facility] Comment on above: Order Comment: Speci men Type: BLOOD SPECIMENOrdering Facility: [facility] Address: [address] [place], [place] [address] Performed By: #### 2 4323-8, 20651-8 ####[facility] LABCLIA [id number] [place] [id number] [place] CO2 [Moles/Vol] 28 mmol/L Normal 22-30 [facility] Comment on above: Order Comment: Speci men Type: BLOOD SPECIMENOrdering Facility: [facility] Address: [address] [place], [place] [address] Performed By: #### 2 4323-8, 43115-4 ####[facility] [id number] [address] [address] [place] Creatinine [Mass/Vol] 0.97 mg/dL Normal 0.73-1.22 [facility] Comment on above: Order Comment: Speci men Type: BLOOD SPECIMENOrdering Facility: [facility] Address: [address] [place] [address] Performed By: #### 2 4323-8, 55203-9 ####[facility] [id number] [place] [address] [place] Creatinine and Glomerular filtration rate.predicted panel (S/P/Bld) 77 mL/min/1.73m??? Normal >=60 [facility] Comment on above: Order Comment: Ilanlove men Type: BLOOD SPECIMENOrdering Facility: [facility] Address: [address] [place] [address] Result Comment: Francisca mated Glomerular Filtration Rate (eGFR) is calculated using the 2020 CKD-EPI creatinine equation. This equation utilizes serum creatinine, sex, and age as parameters. The creatinine assay has traceable calibration to isotope dilution-mass spectrometry. Refer to KDIGO guidelines for clinical interpretation. In patients with unstable renal function, e.g. those with acute kidney injury, the eGFR may not accurately reflect actual GFR. Performed By: #### 2 4323-8, 62008-9 ####[facility] LABIA [id number] [address] [address] [place] Glucose [Mass/Vol] 120 mg/dL High 74-99 [facility] Comment on above: Order Comment: James montesinos Type: BLOOD SPECIMENOrdering Facility: [facility] Address: [address] [place] [address] Result Comment: The [place] Diabetes Association (ADA) provides guidance for cutoff values for fasting glucose and random glucose. The ADA defines fasting as no caloric intake for at least 8 hours. Fasting plasma glucose results between 100 to 125 mg/dL indicate increased risk for diabetes (prediabetes). Fasting plasma glucose results greater than or equal to 126 mg/dL meet the criteria for diagnosis of diabetes. In the absence of unequivocal hyperglycemia, results should be confirmed by repeat testing. In a patient with classic symptoms of hyperglycemia or hyperglycemic crisis, random plasma glucose results greater than or equal to 200 mg/dL meet the criteria for diagnosis of diabetes. Reference: Standards of Medical Care in Diabetes 2016, [place] Diabetes Association. Diabetes Care. 2016.39(Suppl 1). Performed By: #### 2 4323-8, 63490-0 ####[facility] LABCLIA [id number] [place] [address] [place] Potassium [Moles/Vol] 4.3 mmol/L Normal 3.7-5.1 [facility] Comment on above: Order Comment: Speci men Type: BLOOD SPECIMENOrdering Facility: [facility] Address: [address] [place] [address] Performed By: #### 2 4328, ####[facility] LABCLIA [id number] [place] [id number] [place] Protein [Mass/Vol] 6.9 g/dL Normal 6.3-8.0 [facility] Comment on above: Order Comment: Speci men Type: BLOOD SPECIMENOrdering Facility: [facility] Address: [address] [place], [place] [address] Performed By: #### 2 4328, ####[facility] LABCLIA [id number] [address] [address] [place] Sodium [Moles/Vol] 141 mmol/L Normal 136-144 [facility] Comment on above: Order Comment: Speci men Type: BLOOD SPECIMENOrdering Facility: [facility] Address: [address] [place] [id number] Performed By: #### 2 4328, ####[facility] LABCLIA [id number] [place] [id number] [place] Urea nitrogen [Mass/Vol] 15 mg/dL Normal 9-24 [facility] Comment on above: Order Comment: James montesinos Type: BLOOD SPECIMENOrdering Facility: [facility] Address: [address] [place] [address] Performed By: #### 2 4323-8, 93838-3 ####[facility] LABCLIA [id number] [place] [address] [place] HbA1c (Bld)on 03-15-2025 Average glucose Estimated from glycated hemoglobin (Bld) [Mass/Vol] 163 mg/dL Normal [facility] Comment on above: Order Comment: James montesinos Type: BLOOD SPECIMENOrdering Facility: [facility] Address: [address] [place] [address] Result Comment: eAG: (Estimated average glucose) is a calculated value from HgbA1c and is shipping services sales representative of the average blood glucose level in the last 2-3 month period. Performed By: #### 5 5454-3 ####[facility] LABCLIA [id number] [place] [address] [place] HbA1c (Bld) [Mass fraction] 7.3 % High 4.3-5.6 [facility] Comment on above: Order Comment: James montesinos Type: BLOOD SPECIMENOrdering Facility: [facility] Address: [address] [place] [address] Result Comment: [place] Diabetes Association guidelines indicate that patients with HgbA1c in the range 5.7-6.4% are at increased risk for development of diabetes, and intervention by lifestyle modification may be beneficial. HgbA1c greater or equal to 6.5% is considered diagnostic of diabetes. Performed By: #### 5 5454-3 ####[facility] LABCLIA [id number] [address] [address] [place] Lipid 1996 panelon 5 Cholesterol [Mass/Vol] 151 mg/dL Normal <200 [facility] Comment on above: Order Comment: Speci men Type: BLOOD SPECIMENOrdering Facility: [facility] Address: [address] [place] [address] Result Comment: <200 mg/dL, Desirable 200-239 mg/dL, Borderline high >239 mg/dL, High Performed By: #### 2 4323-8, 74908-0 ####[facility] LABCLIA [id number] [facility] [place] [id number] [address] [place] Cholesterol in HDL [Mass/Vol] 49 mg/dL Normal >39 [facility] Comment on above: Order Comment: Speci men Type: BLOOD SPECIMENOrdering Facility: [facility] Address: [address] [place] [address] Result Comment: 40-5 9 mg/dL, Acceptable >59 mg/dL, High: Negative risk factor for coronary heart disease <40 mg/dL, Low: Positive risk factor for coronary heart disease Performed By: #### 2 4323-8, 97181-7 ####[facility] LABCLIA [id number] [facility] [id number], [place] [address] [place] Cholesterol in LDL [Mass/Vol] 84 mg/dL Normal <100 [facility] Comment on above: Order Comment: Speci men Type: BLOOD SPECIMENOrdering Facility: [facility] Address: [address] [place] [address] Result Comment: <100 mg/dL, Optimal 100-129 mg/dL, Near optimal/above optimal 130-159 mg/dL, Borderline high 160-189 mg/dL, High >189 mg/dL, Very high Secondary prevention optimal LDL Cholesterol levels are recommended to be <70 mg/dL LDL cholesterol is calculated using the Berg-NIH equation. Performed By: #### 2 4323-8, 26022-2 ####[facility] LABCLIA [id number] [facility] [place] [id number], [place] [address] [place] Cholesterol in LDL/Cholesterol in HDL [Mass ratio] 1.71 {ratio} Normal <2.54 [facility] Comment on above: Order Comment: Speci men Type: BLOOD SPECIMENOrdering Facility: [facility] Address: [address] [place] [address] Result Comment: Abelino vidal: 1. National Cholesterol Education Program ATP III Guideline At-A-Glance Quick Desk Reference: National Heart, Lung, and Blood [place]. National Institutes of Health. 2001: NIH Publication No. 01-3305. 2. An International Atherosclerosis Society position paper: global recommendations for the management of dyslipidemia: executive summary, Atherosclerosis. 2014: 232(2):410-413. Performed By: #### 2 4323-8, 46716-2 ####[facility] LABIA [id number] [place] [address] [place] Cholesterol in VLDL [Mass/Vol] 15 mg/dL Normal <30 [facility] Comment on above: Order Comment: Ilanlove montesinos Type: BLOOD SPECIMENOrdering Facility: [facility] Address: [address] [place] [address] Performed By: #### 2 4323-8, 71773-3 ####[facility] LABIA [id number] [place] [address] [place] Cholesterol non HDL [Mass/Vol] 102 mg/dL Normal <130 [facility] Comment on above: Order Comment: Ilanlove montesinos Type: BLOOD SPECIMENOrdering Facility: [facility] Address: [address] [place] [address] Result Comment: <130 mg/dL, Optimal 130-159 mg/dL, Near optimal/above optimal 160-189 mg/dL, Borderline high 190-219 mg/dL, High >219 mg/dL, Very high Secondary prevention optimal non HDL Cholesterol levels are recommended to be <100 mg/dL Performed By: #### 2 4323-8, 99858-4 ####[facility] LABIA [id number] [address] [address] [place] Cholesterol.total/Ch olesterol in HDL [Mass ratio] 3.08 {ratio} Normal <5.10 [facility] Comment on above: Order Comment: Ilani men Type: BLOOD SPECIMENOrdering Facility: [facility] Address: [address] [id number] Performed By: #### 2 4323-8, 52141-4 ####[facility] LABCLIA [id number] [address] [place] [address] [place] FASTING TIME 12 hrs Normal [facility] Comment on above: Order Comment: Speci men Type: BLOOD SPECIMENOrdering Facility: [facility] Address: [address] [place] [address] Performed By: #### 2 4323-8, 56773-3 ####[facility] LABCLIA [id number] [address], [facility] [place] Triglyceride [Mass/Vol] 96 mg/dL Normal <150 [facility] Comment on above: Order Comment: Speci men Type: BLOOD SPECIMENOrdering Facility: [facility] Address: [address] [place] [address] Result Comment: <150 mg/dL, Normal 150-199 mg/dL, Borderline high 200-499 mg/dL, High >499 mg/dL, Very high Performed By: #### 2 4323-8, 30125-8 ####[facility] LABCLIA [id number] [address], [place] [address] [place] PSA SerPl-ncon 03-15-2025 Prostate specific Ag [Mass/Vol] 0.04 ng/mL Normal <2.60 [facility] Comment on above: Order Comment: Speci men Type: BLOOD SPECIMENOrdering Facility: [facility] Address: [address] [place] [address] Result Comment: Tota l PSA test methodology used is the Electrochemiluminescence Immunoassay by [employer]. Total PSA values by differing methodologies cannot be interchanged. Performed By: #### 2 857-1 ####[facility] LABCLIA [id number] [address] [place] [address] [place] CNOVon 11-17-2024 CNOV Office Visit (PULMWS ) -- AYLEEN MILLAN V ([id number]) 1940 M Date Time Provider Department 11/17/24 1:15 PM SVETLANA JAEGER PULMWS During your visit today, we recorded the following information about you: Pulse Blood pressure Weight 58/minute 130/66 95.8 kg Svetlana Jaeger MD 11/17/2024 4:38 PM Signed . [facility] [place] Note Patient name: Ayleen Millan PCP: Alonso Wheat MD CC: Pulmonary fibrosis HPI: Ayleen Millan 83 year old male non-smoker with PMH significant for HTN, PAD, GERD, AVM with GIB, prostate cancer s/p XRT, DM, HOCM, bronchiectasis, and pulmonary fibrosis. ILD dates back to 2013. No known drug exposures, occupational exposures, autoimmune disorder. Has intermittent wheezing but intolerant of CJ/LABA due to tachycardia. Cannot afford LAMA. Wheezing improved with use of acapella device and nebulized ipratropium bromide. He presents today for follow-up his most recent CT of his chest. Imaging shows stability of his fibrotic changes. Overall he has been doing well. No significant shortness of breath limiting his activities. He has had some intermittent wheezing. No significant mucus production. He has not been ill with any upper respiratory infection nor required hospitalization. He is up-to-date with his vaccinations. His other complaint today is feeling lightheaded in the morning after he takes his morning medications. He has not had any syncope. He is on 4 different types of blood pressure medications and he takes them all at the same time. DATA: Imaging / Diagnostic Studies: DATE OF EXAM: Oct 24 2024 1:24PM [facility] 0541 - CT CHEST WO IVCON / IMPRESSION: Stable bilateral nodules. No new or enlarging nodules identified. Reticular opacities in the bilateral lower lobes with traction bronchiolectasis, unchanged compared to prior study. Remote granulomatous disease. I personally reviewed the images as well as with the patient and his who accompanied him today which shows stable mild fibrotic changes and focal bronchiectasis PAST MEDICAL HISTORY Diagnosis Date Allergic rhinitis, cause unspecified Arthritis AVM (arteriovenous malformation) of colon with hemorrhage 08/13/2017 Benign prostatic hyperplasia with lower urinary tract symptoms 03/08/2013 Bundle branch block, unspecified Carotid disease, bilateral ([facility]) 08/30/2015 CHR SOLAR SKIN DAMAGE NOS 08/21/2008 Controlled type 2 diabetes mellitus without complication, without long-term current use of insulin ([facility]) 10/04/2019 Degenerative tear of acetabular labrum of right hip 07/19/2020 Diverticulosis of colon (without mention of hemorrhage) 08/13/2017 Duplicated ureter, 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 Nelson ILD (interstitial lung disease) ([facility]) 08/13/2020 Impaired fasting glucose 08/29/2011 Lumbago 12/11/2010 Orthostatic dizziness 10/04/2019 Other and unspecified disc disorder of cervical region 10/28/2005 Other and unspecified hyperlipidemia Prostate cancer ([facility]) 05/30/2016 Radiation therapy Renal cyst 09/29/2013 Unspecified gastritis and gastroduodenitis ALLERGIES Allergen Reactions Albuterol Intolerance tachycardia Tramadol Itching Lipitor [Atorvastat* Intolerance leg cramps Statins [Statins-Hm* Intolerance leg cramping with most statins Vytorin 09/01 [Ezet* Intolerance leg cramping lovastatin 40 mg tablet Take 2 tablets by mouth daily at bedtime. For cholesterol. metFORMIN ER (GLUCOPHAGE XR) 500 mg 24 hr tablet Take 2 tablets by mouth daily with breakfast. amLODIPine (NORVASC) 5 mg tablet Take 0.5 tablets by mouth two times a day. blood sugar diagnostic (BLOOD GLUCOSE TEST) test strip Test blood sugar(s) 1 times daily. Dx: Type 2 DM - Controlled E11.9 Insulin: No ipratropium (ATROVENT) 0.02 % nebulizer solution Use 2.5 mL via nebulizer three times a day. OVER 5-15 MINUTES FOR WHEEZING OR SHORTNESS OF BREATH guaiFENesin (MUCINEX) 600 mg 12 hr tablet Take 1 tablet by mouth two times a day. omeprazole (PRILOSEC) 40 mg capsule Take 1 capsule by mouth two times a day. atenolol (TENORMIN) 50 mg tablet Take 1 tablet by mouth two times a day. Lancets lancets Test blood sugar(s) one times daily. Dx: Type 2 DM - Controlled E11.9 Insulin: No Lancing Device misc 1 Each once daily. Lancets (ONETOUCH ULTRASOFT LANCETS) lancets Test blood sugars 1 time daily. Dx: Type 2 DM Controlled E11.9 Insulin: No lisinopril (ZESTRIL) 40 mg tablet Take 40 mg by mouth once daily. Mucus Clearing Device nadir Provide mucus clearing device furosemide (LASIX) 20 mg tablet Take 40 mg by mouth once daily. Using 20mg pe (more content not included)... Normal [facility] CT CHEST WO IVCONon 10-24-20 CT CHEST WO IVCON * * *Final Report* * * DATE OF EXAM: Oct 24 2024 1:24PM [facility] 0541 - CT CHEST WO IVCON / PROCEDURE REASON: Interstitial lung disease * * * * Physician Interpretation * * * * EXAMINATION: CHEST CT WITHOUT CONTRAST CLINICAL HISTORY: Interstitial lung disease. Technique: Spiral CT acquisition of the chest from the thoracic inlet to the upper abdomen without contrast. The study was performed following HRCT protocol. MQ: [id number]_6 CT Radiation dose: Integrated Dose-length product (DLP) for this visit = 430 mGy*cm CT Dose Reduction Employed: Automated exposure control(AEC) and iterative recon Comparison: CT chest on 09/25/2023 RESULT: Limitations: None. Lines, tubes, and devices: None. Lung parenchyma and airways: The central airways are patent. A few stable pulmonary nodules visualized. For example, there is a 5.5 mm nodule in the lingula, series 15 image 116. A 4 mm nodule in the medial right lower lobe, series 15 image 195. More inferiorly seen is a tiny 1-2 mm nodule in the right lower lobe, series 15 image 207. There is a questionable elongated nodule along the right major fissure, series 15 image 157, unchanged. No new nodules identified. No masses. Mild reticulations noted in the bilateral lower lobes along the medial and posterior aspects, with traction bronchiolectasis. No honeycombing. No significant architectural distortion. Stable atelectasis in the right middle lobe. Pleural space: No pleural effusion. No pleural thickening. Lower neck, lymph nodes, and mediastinum: The imaged thyroid gland is normal. No lymphadenopathy in the supraclavicular, axillary, mediastinal, or hilar regions. There are lymph node calcifications in the bilateral yanely. Heart, pericardium, and thoracic vessels: Stable cardiac chambers, thoracic aorta and central pulmonary arteries. No pericardial effusion/thickening. Bones and soft tissues: The spine shows advanced degenerative changes with multilevel disc space narrowing. No destructive bone lesion. The chest wall soft tissue remains unremarkable.. Upper abdomen: Limited study through the upper abdomen demonstrates no interval changes. Localizer images: No additional findings. IMPRESSION: Stable bilateral nodules. No new or enlarging nodules identified. Reticular opacities in the bilateral lower lobes with traction bronchiolectasis, unchanged compared to prior study. Remote granulomatous disease. 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 Start of test and EOFE criteria met. The two largest DLCO values were repeatable. TGV is repeatable x3. IMPRESSION: Spirometry is normal. Decrease in TLC indicates restriction. The diffusion capacity (uncorrected for hemoglobin) is normal. Electronically Signed On 10-24-2024 16:12:25 EST by Svetlana Jaeger MD ID: [id number] Name: AYLEEN MILLAN V Race: White Ht: 68.25 in Wt: 213.00 lbs Age: 83 Gender: Male : 1940 Dx: Idiopathic interstitial pulmonary disease_ Smoking Hx: Non-smoker Doctor: SVETLANA JAEGER Test Date: 10/24/2024 Site: Tech: Delores Strickland PRE-BRONCH POST-BRONCH Pre LLN Pred ULN %Pred Post %Pred %Chg SPIROMETRY FVC (L) 2.92 2.53 3.44 4.38 84 FEV1 (L) 1.96 1.80 2.51 3.18 77 FEV1/FVC 0.67 0.60 0.75 0.87 88 PEF L/s (L/sec) 7.05 4.00 6.20 8.40 113 FEF50 (L/sec) 2.50 1.09 3.21 5.33 78 FIF50 (L/sec) 1.88 FEF50/FIF50 1.33 90-100 FIVC (L) 2.84 YEX92-21 (L/sec) 0.73 0.63 1.79 3.53 40 Time (sec) 11.51 FET PEF (sec) 0.10 RICKY (L) 0.14 Vol Extrap % (%) 5 LUNG VOLUMES TGV (L) 2.44 2.48 3.66 4.84 66 ERV (L) 0.44 1.15 38 RV (Pleth) (L) 2.12 2.05 2.66 3.28 79 SVC (L) 2.56 2.53 3.44 4.38 74 IC (L) 2.12 2.30 92 TLC (Pleth) (L) 4.61 5.42 6.72 8.02 68 RV/TLC (Pleth) (%) 46 33 40 47 113 LUNG DIFFUSION DLCOunc (ml/min/mmHg) 18.25 12.06 22.00 31.94 82 VA (L) 4.34 5.12 6.48 7.85 66 DLunc/VA (ml/min/mmHg/L) 4.21 2.37 3.57 4.78 117 BHT (sec) 10.14 IVC (L) 2.53 Comments: Current ATS/ERS acceptability and repeatability standards for spirometry met. Start of test and EOFE criteria met. The two largest DLCO values were repeatable. TGV is repeatable x3. PULMONARY FUNCTION LAB [facility] SPIROMETRY BASELINE ONLYon 1 12-25-2023 DLCO (ml/min/mmHg) 18.25 ml/min/mmHg [facility] DLCO LLN (ml/min/mmHg) 12.06 ml/min/mmHg [facility] DLCO PREDICTED (ml/min/mmHg) 22.00 ml/min/mmHg [facility] DLCO ULN (ml/min/mmHg) 31.94 ml/min/mmHg [facility] DLCO/VA (ml/min/mmHg/L) 4.21 ml/min/mmHg /L [facility] DLCO/VA PREDICTED (ml/min/mmHg/L) 3.57 ml/min/mmHg /L [facility] DLCOcor PREDICTED (ml/min/mmHg) 22.00 ml/min/mmHg [facility] ERV BOX (L) 0.44 L [facility] ERV PREDICTED (L) 1.15 L/S [facility] FEF25% PRE (L/S) 6.45 L/S [facility] HSH57-25% LLN (L/S) 0.63 L/S [facility] RCI80-30% PRE (L/S) 0.73 L/S [facility] URT95-58% PREDICTED (L/S) 1.79 L/S [facility] FEF75% LLN (L/S) 0.13 L/S [facility] FEF75% PRE (L/S0 0.17 L/S [facility] FEF75% PREDICTED (L/S) 0.42 L/S [facility] FEF75% ULN (L/S) 1.25 L/S [facility] FET PRE (S) 11.51 S [facility] FEV1 LLN (L) 1.80 L [facility] FEV1 PRE (L) 1.96 L [facility] FEV1 PREDICTED (L) 2.51 L [facility] FEV1 ULN (L) 3.18 L [facility] FEV1/FVC LLN (%) 60 % [facility] FEV1/FVC PRE (%) 67 % [facility] FEV1/FVC PREDICTED (%) 75 % [facility] FRC Box (L) 2.44 L [facility] FVC LLN (L) 2.53 L [facility] FVC PRE (L) 2.92 L [facility] FVC PREDICTED (L) 3.44 L [facility] FVC ULN (L) 4.38 L [facility] IC BOX (L) 2.12 L [facility] IC PREDICTED (L) 2.30 L/S [facility] PEF LLN (L/S) 4.00 L/S [facility] PEF PRE (L/S) 7.05 L/S [facility] PEF ULN (L/S) 8.40 L/S [facility] RV Box (L) 2.12 L [facility] RV Box PREDICTED (L) 2.66 [facility] RV/TLC Box (%) 46 % [facility] RV/TLC Box PREDICTED (%) 40 % [facility] SVC LLN (L) 2.53 L/S [facility] SVC PREDICTED (L) 3.44 L/S [facility] SVC ULN (L) 4.38 L/S [facility] TLC Box (L) 4.61 L [facility] TLC Box PREDICTED (L) 6.72 L [facility] VA (L) 4.34 L [facility] VA PREDICTED (L) 6.48 L [facility] VC (L) BOX 2.56 L [facility] CREATININE FINGERSTICKon CREATININE WB < 1.0 Normal 0.70-1.30 [facility] Comment on above: Performed By: #### L 9100.0200 #### [facility] [address] [place], [place], [address] EGFR WB > 60.0000 Normal >60 [facility] Comment on above: Performed By: #### L 9100.0200 #### [facility] [address] [place], [address] CT Abd/Pelvis W/WO Contrasto n 10-12-2024 CT Abd/Pelvis W/WO Contrast [facility] Services [address] [place] [address] CT Abd/Pelvis W/WO Contrast MR#: [id number] Acct: [id number] Name: MONTYAYLEEN LAZARO Rep #: [id number] : 1940 M 83 From: Jose Ramon Gonsales PCP: Dr. Alonso Wheat MD Status: [facility] Study: CT Abd/Pelvis W/WO Contrast Date of Exam: 09/24 Exam# [id number] Ordering Dr: Tavo Hester MD [id number] INDICATION: GROSS HEMATURIA, TROUBLE URINATING EXAMINATION: CT ABDOMEN AND PELVIS WITH AND WITHOUT CONTRAST - CT Abdomen And Pelvis WO/W Contrast Injection TECHNIQUE: Helically acquired images were obtained of the abdomen and pelvis both before and after IV contrast. The protocol utilizes one or more of the following dose reduction techniques: automated exposure control, adjustment of mA and/or kV according to patient size,and/or use of iterative reconstruction technique. IV Contrast dosage and agent: 100 cc Isovue-300 Oral contrast: None. RADIATION DOSAGE (If Supplied By Facility): CTDIvol = ( 22.31 ) mGy, DLP = ( 4093.55 ) mGycm COMPARISON: Prior study dated: 07/16/2020 FINDINGS: LOWER CHEST: Chronic changes right base is unchanged. No cardiomegaly or pericardial effusion. LIVER: Homogeneous. No focal mass. GALLBLADDER AND BILIARY TREE: No calcified gallstones. No gallbladder distension or wall edema. No intra- or extrahepatic biliary ductal dilation. PANCREAS: No focal cystic or solid mass. SPLEEN: Normal size without focal cystic or solid mass. ADRENAL GLANDS: No nodules. KIDNEYS AND URETERS: Atrophic changes in the upper pole of the right kidney. Multiple bilateral simple cysts essentially unchanged, the largest is in the left kidney measuring about 5.5 cm for which no further follow-up exam is needed. No evidence of hydronephrosis. No ureteral stone is identified. PERITONEUM: No ascites or free air. No other fluid collection. BOWEL: No evidence of acute appendicitis. No stomach or bowel distension. No focal inflammatory change. LYMPH NODES: No enlarged mesenteric or retroperitoneal lymph nodes. VESSELS: Aorta is non-dilated. URINARY BLADDER: Circumferential thickening of the bladder wall could be due to underdistention. Cystitis cannot be excluded. REPRODUCTIVE ORGANS: No pelvic masses. ABDOMINAL WALL: Small bilateral inguinal hernias containing fat. BONES: Multilevel degenerative changes of the spine. CT/CT Abd/Pelvis W/WO Contrast IMPRESSION: 1. Thickening of the bladder wall likely due to underdistention. Cystitis cannot be excluded. 2. No focal acute inflammatory process. 3. Atrophic changes in the right kidney and bilateral simple renal cysts unchanged. Electronically Signed: Jose Ramon Swift MD at 13:12 EST , CC: Dr. Tavo Hester MD; Dr. Alonso Wheat MD Nuclear Technologist: Signed Normal [facility] Urine Drug Screen (VISTA)on 10-10-2024 AMPHETAMINES Negative Normal <1000 ng/mL [facility] Comment on above: Order Comment: MED T OX Performed By: #### L 505.5000 #### [facility] [address] [place], [address] BARBITIURATES Negative Normal < 200 ng/mL [facility] Comment on above: Order Comment: MED T OX Performed By: #### L 505.5000 #### [facility] [address] [place], [address] BENZODIAZIPINE Negative Normal < 200 ng/mL [facility] Comment on above: Order Comment: MED T OX Performed By: #### L 505.5000 #### [facility] [address] [place], [address] COCAINE Negative Normal < 300 ng/mL [facility] Comment on above: Order Comment: MED T OX Performed By: #### L 505.5000 #### [facility] [address] [place], [address] ECSTACY Negative Normal < 500 ng/mL [facility] Comment on above: Order Comment: MED T OX Performed By: #### L 505.5000 #### [facility] [address] [place], [address] METHADONE Negative Normal < 300 ng/mL [facility] Comment on above: Order Comment: MED T OX Performed By: #### L 505.5000 #### [facility] [address] [place], [address] OPIATES Positive Abnormal < 300 ng/mL [facility] Comment on above: Order Comment: MED T OX Performed By: #### L 505.5000 #### [facility] [address] [place], [address] PCP Negative Normal < 25 ng/mL [facility] Comment on above: Order Comment: MED T OX Performed By: #### L 505.5000 #### [facility] [address] [place], [address] THC Negative Normal < 50 ng/mL [facility] Comment on above: Order Comment: MED T OX Performed By: #### L 505.5000 #### [facility] [address] [place], [place], [address] VISTA UDS PH 5 Normal [facility] Comment on above: Order Comment: MED T OX Performed By: #### L 505.5000 #### [facility] [address] [place], [place], [address] [facility] AYLEEN MILLAN V ([id number]) 1940 M Date Time Provider Department 09/22/24 HERMINIA REED During your visit today, we recorded the following information about you: Bruna Triplett 09/22/2024 10:02 AM Signed Spouse called requesting information- when did patient have radiation, does he need a follow up? She also states he is having some urology problems and is having a urology consult. Grace Presley, RN 09/22/2024 10:39 AM Signed I called pt and gave him requested information. He verbalized understanding and denied further questions. Bladder symptoms have changed in the last month or so. He has a consultation with a urologist next week. Allergies As of Date: 09/22/2024 Noted Allergy Reaction ALBUTEROL 11/27/2020 5 - Intolerance Comments: tachycardia TRAMADOL 08/29/2011 9 - Itching LIPITOR (ATORVASTATIN CALCIUM) 06/23/2006 5 - Intolerance Comments: leg cramps STATINS ([id number]-[id number] REDUCTAS*02/07/2008 5 - Intolerance Comments: leg cramping with most statins VYTORIN 09/01 (EZETIMIBE-SIMVASTA*2005 5 - Intolerance Comments: leg cramping Date Reviewed: 09/21/2024 Reviewed by: Ines Dumont LPN - Fully Assessed Reason for Visit: Patient Question [1477] Prescriptions as of 09/22/2024 - lovastatin 40 mg tablet Take 2 tablets by mouth daily at bedtime. For cholesterol. - metFORMIN ER (GLUCOPHAGE XR) 500 mg 24 hr tablet Take 2 tablets by mouth daily with breakfast. - amLODIPine (NORVASC) 5 mg tablet Take 0.5 tablets by mouth two times a day. - blood sugar diagnostic (BLOOD GLUCOSE TEST) test strip Test blood sugar(s) 1 times daily. Dx: Type 2 DM - Controlled E11.9 Insulin: No - ipratropium (ATROVENT) 0.02 % nebulizer solution Use 2.5 mL via nebulizer three times a day. OVER 5-15 MINUTES FOR WHEEZING OR SHORTNESS OF BREATH - guaiFENesin (MUCINEX) 600 mg 12 hr tablet Take 1 tablet by mouth two times a day. - omeprazole (PRILOSEC) 40 mg capsule Take 1 capsule by mouth two times a day. - atenolol (TENORMIN) 50 mg tablet Take 1 tablet by mouth two times a day. - Lancets lancets Test blood sugar(s) one times daily. Dx: Type 2 DM - Controlled E11.9 Insulin: No - Lancing Device misc 1 Each once daily. - Lancets (ONETOUCH ULTRASOFT LANCETS) lancets Test blood sugars 1 time daily. Dx: Type 2 DM Controlled E11.9 Insulin: No - lisinopril (ZESTRIL) 40 mg tablet Take 40 mg by mouth once daily. - Mucus Clearing Device nadir Provide mucus clearing device - furosemide (LASIX) 20 mg tablet Take 40 mg by mouth once daily. Using 20mg per day currently. - HYDROcodone-acetaminophen (NORCO) 5-325 mg per tablet Take 1 tablet by mouth twice daily as needed. - polyethylene glycol 3350 (MIRALAX, GLYCOLAX) 17 gram/dose powder Take 17 g by mouth once daily. - aspirin, enteric coated (ASPIRIN, ENTERIC COATED) 81 mg EC tablet Take 81 mg by mouth once daily. - calcium carbonate 600 mg-cholecalciferol 200 units 600 mg-5 mcg (200 unit) tab Take 1 tablet by mouth twice daily. 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] 10/28/2005 DISC DIS NEC/NOS-CERV [M50.90] 10/28/2005 Benign prostatic hyperplasia with lower urinary*03/08/2013 Hypoglycemia, unspecified [E16.2] 08/10/2008 08/29/2011 Neoplasm of Uncertain Behavior of Skin [D48.5] 08/21/2008 08/20/2009 Inflamed Seborrheic Keratosis [L82.0] 08/21/2008 08/20/2009 Viral Warts, Unspecified [B07.9] 08/21/2008 08/20/2009 NEUROFIBROMA////BENIGN AYE SKIN TRUNK [D23.5] 08/21/2008 09/02/2012 SEBORRHEIC KERATOSES NOS [L82.1] 08/21/2008 10/05/2019 SOLAR LENGINES///DYSCHROMIA OTHER [L81.9] 08/21/2008 08/20/2009 Benign Neoplasm of Scalp and Skin of Neck [D23.*09/29/2008 08/20/2009 First degree hemorrhoids [K64.0] 10/10/2008 10/25/2020 Lumbago [M54.50] 12/11/2010 Other physical therapy [HJQ1002] 01/15/2011 08/29/2011 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] 06/29/2011 09/02/2012 Impaired fasting glucose [R73.01] 08/29/2011 10/25/2020 Atypical Melanocytic Compound and Junctional Ne*02/01/2012 09/02/2012 Actinic Keratosis (Premalignant AK) [L57.0] 02/01/2012 08/30/2015 Irritated//Inflamed Seborrheic Keratoses (poten*02/01/2012 09/02/2012 Cutaneous skin tags [L91.8] 02/01/2012 09/02/2012 Actinic skin damage [L57.8] 02/01/2012 09/02/2012 Solar Lentigines [L81.4] 02/01/2012 09/07/2014 Wilson angiomas [D18.01] 02/01/2012 09/02/2012 Viral warts, unspecified [B07.9] 03/18/2012 09/02/2012 Melanocytic nevi of trunk [D22.5] 04/25/2012 08/30/2015 Surgical Scars [L (more content not included)... Normal [facility] CNOVon 09-21-2024 CNOV Office Visit (INTMWS ) -- AYLEEN MILLAN V ([id number]) 1940 M Date Time Provider Department 09/21/24 10:40 AM ALONSO WHEAT INTMWS During your visit today, we recorded the following information about you: Temperature Pulse Respiration Blood pressure 97.1 degrees 61/minute 20/minute 121/71 Weight Height 96.6 kg 1.742 m Alonso Wheat MD 09/21/2024 12:34 PM Signed Ayleen Millan is a 83 year old male here for a Medicare wellness visit. Medicare Health Risk Assessment General Health Good Exercise: Minutes/Day 0 min Exercise: Days/Week 0 days Alcohol: Daily Use Never Alcohol: Drinks/Day Patient does not drink Alcohol: 6 or more drinks Never Feel off balance Yes Concerns: Teeth/Dentures No Concerns: Sexual function No Troubled by feelings None of the above Frequency: Eating healthy diet Several days ADLs requiring help Sitting or standing; Walking Safety precautions in home/vehicle Yes Smoke, vape, chews tobacco No Difficulty hearing Yes Difficulty seeing No Current Providers Specialists: I have reviewed specialist-related care of the patient in the medical record. 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 Jared Marques Pulmonary- Dr. Svetlana Jaeger. Medical/Family history review Reviewed and updated problem list, medical/surgical/family/so cial history, medications, and allergies. Opioid use review Opioid Medications (last 90 days) 06/24/2024 00:00 Opioid Medications hydrocodone/acetaminophen 1 tablet BID PRN ORAL (5-325 mg tab) Details Patient-reported medication Prescribed No opioid use on file in the last 90 days Does patient have risk factors for opioid abuse? No Pain overview Current pain concerns and treatment plan reviewed. Patient under the care of a specialist. Anxiety/Depression screening Recommendation: no further intervention at this time Cognitive screening Mini Cog Score: 4 Cognitive screening reviewed and No further action needed (score 3-5). Functional Observation Was the patient's Timed Up AND Go test unsteady or >= 12 seconds? No Advance Care Planning Patient did not wish or was not able to name a surrogate decision maker or provide an advance care plan Measurements BP 121/71 (BP Site: Left Arm, BP Position: Sitting, BP Cuff Size: Large Adult) Pulse 61 Temp 36.2 ?C (97.1 ?F) (Temporal) Resp 20 Ht 174.2 cm (5' 8.6) Wt 96.6 kg (212 lb 15.4 oz) BMI 31.82 kg/m? Vision Screening: Follows with optometry/ophthalmology Right: 20/50 Left: 20/ 50 Both: 20/40 Assessment/Plan Medicare annual wellness visit, subsequent (Z00.00) - Counseled on healthy diet and regular exercise - Fall avoidance information provided - Personalized prevention plan provided - Discussed need for and benefit of weight loss. BMI 31.82 kg/(m2) Alonso Wheat MD 09/21/2024 11:37 AM Addendum VACCINES RECOMMENDED. GET AT YOUR PHARMACY (Medicare D) Shingrix Vaccine(1 of 2) Never done DTaP,Tdap,Td Vaccine(1 - Tdap) due on 06/29/2011 RSV Vaccine(1 - 1-dose 75+ series) Never done Dilated Retinal Exam due on 10/14/2024 Screening schedule The following prevention plan is recommended: Depression Screening Never done Anxiety Screening Never done Shingrix Vaccine(1 of 2) Never done DTaP,Tdap,Td Vaccine(1 - Tdap) due on 06/29/2011 RSV Vaccine(1 - 1-dose 75+ series) Never done Advance Directive Discussion due on 11/23/2023 Dilated Retinal Exam due on 10/14/2024 WHAT YOU CAN DO TO PREVENT FALLS Many falls can be prevented. By making some changes, you can lower your chances of falling. Four things YOU can do to prevent falls for you* and your caregiver 1. Begin a regular exercise program Exercise is one of the most important ways to lower your chances of falling. It makes you stronger and helps you feel better. Exercises that improve balance and coordination (like Jorge Chi) are the most helpful. Lack of exercise leads to weakness and increases your chances of falling. Ask your doctor or health care provider about the best type of exercise program for you. 2. Have your health care provider review your medicines Have your doctor or pharmacist review all the medicines you take, even [id number]-[id number] medicines. As you get older, the way medicines work in your body can change. Some medicines, or combinations of medicines, can make you sleepy or dizzy and can cause you to fall. 3. Have your vision checked Have your eyes checked by an eye doctor at least once a year. You may be wearing the wrong glasses or have a condition like glaucoma or cataracts that limits your vision. Poor vision can increase your chances of falling. 4. Make y (more content not included)... Normal [facility] UA DIP, URINE (POC)on 2023 BILIRUBIN UA (POCT) Negative Negative [facility] CLARITY UA (POCT) Clear [facility] COLOR UA (POCT) Light yellow [facility] GLUCOSE UA (POCT) Negative Negative mg/dL [facility] Hemoglobin Ql (U) Negative Negative [facility] KETONE UA (POCT) Negative Negative mg/dL [facility] LEUKOCYTES UA (POCT) Negative [facility] N[facility] ([facility]) Negative Negative [facility] PH UA (POCT) 6.0 4.5 - 8.0 [facility] Protein Ql (U) Negative Negative mg/dL [facility] SPECIFIC GRAVITY UA (POCT) 1.010 1.005 - 1.030 [facility] UROBILINOGEN UA (POCT) 0.2 Normal E.U./dL [facility] Location:[address], [place], [place], [id number] [place] [address] POINT OF CARE [facility] HbA1c (Bld)on 09-14-2024 Average glucose Estimated from glycated hemoglobin (Bld) [Mass/Vol] 151 mg/dL Normal [facility] Comment on above: Order Comment: James montesinos Type: BLOOD SPECIMENOrdering Facility: [facility] Address: [address] [place] [address] Result Comment: eAG: (Estimated average glucose) is a calculated value from HgbA1c and is shipping services sales representative of the average blood glucose level in the last 2-3 month period. Performed By: #### [id number] ####[facility] LABCLIA [id number] [place] [address] [place] HbA1c (Bld) [Mass fraction] 6.9 % High 4.3-5.6 [facility] Comment on above: Order Comment: Speci men Type: BLOOD SPECIMENOrdering Facility: [facility] Address: [address] [place] [address] Result Comment: Amer [place] Diabetes Association guidelines indicate that patients with HgbA1c in the range 5.7-6.4% are at increased risk for development of diabetes, and intervention by lifestyle modification may be beneficial. HgbA1c greater or equal to 6.5% is considered diagnostic of diabetes. Performed By: #### 5 [id number] ####[facility] LABCLIA [id number] [id number] [address] [facility] CNOVon 08-23-2024 CNOV Office Visit (INTMWS ) -- AYLEEN MILLAN V ([id number]) 1940 M Date Time Provider Department 08/23/24 11:00 AM ALONSO WHEAT INTMWS During your visit today, we recorded the following information about you: Temperature Pulse Blood pressure Weight 97.4 degrees 57/minute 124/64 95.1 kg Alonso Wheat MD 08/24/2024 8:27 AM Signed This note was created using Koducoriter. Subjective Patient presents with: Cough Ayleen Millan is a 83 year old male who presents with complaint of cough- dry and present all day for 2 weeks. He denies fever, headache, sore throat, dyspnea, wheezing, nausea, vomiting, diarrhea, shortness of breath, and myalgias. Treatments tried include Atrovent nebulizer with minor relief of symptoms. He had bronchiectasis and ILD followed by pulmonary. His had been ill with a cough as well, and his Covid home test was negative while 's viral panel was negative. Review of Systems Per HPI. 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 Benign Prostatic Hyperplasia With Lower Urinary Tract Symptoms Lumbago Hearing Loss in Right Ear History of Prostate Cancer Obesity, Class I, Bmi 30-34.9 Controlled Type 2 Diabetes Mellitus Without Complication, Without Long-Term Current Use of Insulin (Hcc) Degenerative Tear of Acetabular Labrum of Right Hip Ild (Interstitial Lung Disease) ([facility]) Current Outpatient Medications Medication Sig blood sugar diagnostic (BLOOD GLUCOSE TEST) test strip Test blood sugar(s) 1 times daily. Dx: Type 2 DM - Controlled E11.9 Insulin: No ipratropium (ATROVENT) 0.02 % nebulizer solution Use 2.5 mL via nebulizer three times a day. OVER 5-15 MINUTES FOR WHEEZING OR SHORTNESS OF BREATH guaiFENesin (MUCINEX) 600 mg 12 hr tablet Take 1 tablet by mouth two times a day. omeprazole (PRILOSEC) 40 mg capsule Take 1 capsule by mouth two times a day. atenolol (TENORMIN) 50 mg tablet Take 1 tablet by mouth two times a day. Lancets lancets Test blood sugar(s) one times daily. Dx: Type 2 DM - Controlled E11.9 Insulin: No Lancing Device misc 1 Each once daily. Lancets (ONETOUCH ULTRASOFT LANCETS) lancets Test blood sugars 1 time daily. Dx: Type 2 DM Controlled E11.9 Insulin: No lovastatin 40 mg tablet Take 2 tablets by mouth daily at bedtime. For cholesterol. metFORMIN ER (GLUCOPHAGE XR) 500 mg 24 hr tablet Take 2 tablets by mouth daily with breakfast. lisinopril (ZESTRIL) 40 mg tablet Take 40 mg by mouth once daily. Mucus Clearing Device nadir Provide mucus clearing device furosemide (LASIX) 20 mg tablet Take 40 mg by mouth once daily. Using 20mg per day currently. HYDROcodone-acetaminophen (NORCO) 5-325 mg per tablet Take 1 tablet by mouth twice daily as needed. polyethylene glycol 3350 (MIRALAX, GLYCOLAX) 17 gram/dose powder Take 17 g by mouth once daily. aspirin, enteric coated (ASPIRIN, ENTERIC COATED) 81 mg EC tablet Take 81 mg by mouth once daily. calcium carbonate 600 mg-cholecalciferol 200 units 600 mg-5 mcg (200 unit) tab Take 1 tablet by mouth twice daily. CENTRUM SILVER TAB amLODIPine (NORVASC) 5 mg tablet Take 0.5 tablets by mouth two times a day. predniSONE (DELTASONE) 20 mg tablet Take 1 tablet by mouth once daily for 5 days. No current facility-administered medications for this visit. Objective BP 124/64 (BP Site: Left Arm, BP Position: Sitting, BP Cuff Size: Large Adult) Pulse (!) 57 Temp 36.3 ?C (97.4 ?F) (Temporal) Wt 95.1 kg (209 lb 10.5 oz) BMI 31.65 kg/m? Physical Exam Constitutional: Appearance: He is not ill-appearing. HENT: Nose: No congestion or rhinorrhea. Mouth/Throat: Mouth: Mucous membranes are moist. Pharynx: Oropharynx is clear. No posterior oropharyngeal erythema. Eyes: Conjunctiva/sclera: Conjunctivae normal. Cardiovascular: Rate and Rhythm: Regular rhythm. Bradycardia present. Pulmonary: Effort: No respiratory distress. Comments: Few wheezes, chronic dry crackles at bases. Musculoskeletal: Right lower leg: No edema. Left lower leg: No edema. Lymphadenopathy: Cervical: No cervical adenopathy. Neurological: Mental Status: He is alert. Assessment and Plan 1. Bronchitis - ICD9: 490, ICD10: J40 (primary diagnosis) - PREDNISONE 20 MG TABLET 2. ILD (interstitial lung disease) (HCC) - ICD9: 515, ICD10: J84.9 - PREDNISONE 20 MG TABLET We agreed to treat with a bolus of prednisone. Discussed medication dosage, usage, goals of therapy, and side effects. Message if not better or if new symptoms arise. Alonso Wheat MD Referring Provider: SELF [200] Allergies As of Date: 08/23/2024 Noted Allergy Reaction ALBUTEROL 11/27/2020 5 - Intolerance Comm (more content not included)... Normal [facility] CNOVon 07-28-2024 CNOV Office Visit (INTMWS ) -- AYLEEN MILLAN V ([id number]) 1940 [place] Date Time Provider Department 07/28/24 11:20 AM ROMELIA RENEE INTMWS During your visit today, we recorded the following information about you: Allergies As of Date: 07/28/2024 Noted Allergy Reaction ALBUTEROL 11/27/2020 5 - Intolerance Comments: tachycardia TRAMADOL 08/29/2011 9 - Itching LIPITOR (ATORVASTATIN CALCIUM) 06/23/2006 5 - Intolerance Comments: leg cramps STATINS ([id number]-OVS-ZVH REDUCTAS*02/07/2008 5 - Intolerance Comments: leg cramping with most statins VYTORIN 09/01 (EZETIMIBE-SIMVASTA*2005 5 - Intolerance Comments: leg cramping Date Reviewed: 04/21/2024 Reviewed by: Kristina Curry LPN - Fully Assessed Visit Diagnosis:Encounter for immunization [Z23] Order(s):INFLUENZA VACCINE, PRSV FREE, AGE 65+ YR, HIGH DOSE, TRIVALENT (FLUZONE HIGH-DOSE) [[id number]] Order #: [id number] Prescriptions as of 07/28/2024 - blood sugar diagnostic (BLOOD GLUCOSE TEST) test strip Test blood sugar(s) 1 times daily. Dx: Type 2 DM - Controlled E11.9 Insulin: No - ipratropium (ATROVENT) 0.02 % nebulizer solution Use 2.5 mL via nebulizer three times a day. OVER 5-15 MINUTES FOR WHEEZING OR SHORTNESS OF BREATH - guaiFENesin (MUCINEX) 600 mg 12 hr tablet Take 1 tablet by mouth two times a day. - omeprazole (PRILOSEC) 40 mg capsule Take 1 capsule by mouth two times a day. - atenolol (TENORMIN) 50 mg tablet Take 1 tablet by mouth two times a day. - Lancets lancets Test blood sugar(s) one times daily. Dx: Type 2 DM - Controlled E11.9 Insulin: No - Lancing Device misc 1 Each once daily. - Lancets (ONETOUCH ULTRASOFT LANCETS) lancets Test blood sugars 1 time daily. Dx: Type 2 DM Controlled E11.9 Insulin: No - lovastatin 40 mg tablet Take 2 tablets by mouth daily at bedtime. For cholesterol. - metFORMIN ER (GLUCOPHAGE XR) 500 mg 24 hr tablet Take 2 tablets by mouth daily with breakfast. - lisinopril (ZESTRIL) 40 mg tablet Take 40 mg by mouth once daily. - Mucus Clearing Device nadir Provide mucus clearing device - furosemide (LASIX) 20 mg tablet Take 40 mg by mouth once daily. Using 20mg per day currently. - HYDROcodone-acetaminophen (NORCO) 5-325 mg per tablet Take 1 tablet by mouth twice daily as needed. - amLODIPine (NORVASC) 5 mg tablet Take 1 tablet by mouth in the mornings and 1/2 tablet (2.5 mg) in the evenings - polyethylene glycol 3350 (MIRALAX, GLYCOLAX) 17 gram/dose powder Take 17 g by mouth once daily. - aspirin, enteric coated (ASPIRIN, ENTERIC COATED) 81 mg EC tablet Take 81 mg by mouth once daily. - calcium carbonate 600 mg-cholecalciferol 200 units 600 mg-5 mcg (200 unit) tab Take 1 tablet by mouth twice daily. - CENTRUM SILVER TAB Problem List As Of Date 07/28/2024 Noted Resolved GENERAL OSTEOARTHROSIS [M15.9] ALLERGIC RHINITIS NOS [J30.9] INT HEMORRHOID W/O COMPL [K64.8] 06/23/2006 DIVERTICULOSIS OF COLON W/O BLEED [K57.30] 06/23/2006 ESOPHAGEAL REFLUX [K21.9] Bundle branch block, unspecified [I45.4] 09/07/2014 Hyperlipemia [E78.5] BENIGN HYPERTENSION [I10] Hypertrophic cardiomyopathy (HCC) [I42.2] 10/28/2005 DISC DIS NEC/NOS-CERV [M50.90] 10/28/2005 Benign prostatic hyperplasia with lower urinary*03/08/2013 Hypoglycemia, unspecified [E16.2] 08/10/2008 08/29/2011 Neoplasm of Uncertain Behavior of Skin [D48.5] 08/21/2008 08/20/2009 Inflamed Seborrheic Keratosis [L82.0] 08/21/2008 08/20/2009 Viral Warts, Unspecified [B07.9] 08/21/2008 08/20/2009 NEUROFIBROMA////BENIGN AYE SKIN TRUNK [D23.5] 08/21/2008 09/02/2012 SEBORRHEIC KERATOSES NOS [L82.1] 08/21/2008 10/05/2019 SOLAR LENGINES///DYSCHROMIA OTHER [L81.9] 08/21/2008 08/20/2009 Benign Neoplasm of Scalp and Skin of Neck [D23.*09/29/2008 08/20/2009 First degree hemorrhoids [K64.0] 10/10/2008 10/25/2020 Lumbago [M54.50] 12/11/2010 Other physical therapy [[id number]] 01/15/2011 08/29/2011 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] 06/29/2011 09/02/2012 Impaired fasting glucose [R73.01] 08/29/2011 10/25/2020 Atypical Melanocytic Compound and Junctional Ne*02/01/2012 09/02/2012 Actinic Keratosis (Premalignant AK) [L57.0] 02/01/2012 08/30/2015 Irritated//Inflamed Seborrheic Keratoses (poten*02/01/2012 09/02/2012 Cutaneous skin tags [L91.8] 02/01/2012 09/02/2012 Actinic skin damage [L57.8] 02/01/2012 09/02/2012 Solar Lentigines [L81.4] 02/01/2012 09/07/2014 Wilson angiomas [D18.01] 02/01/2012 09/02/2012 Viral warts, unspecified [B07.9] 03/18/2012 09/02/2012 Melanocytic nevi of trunk [D22.5] 04/25/2012 08/30/2015 Surgical Scars [L90.5] 04/25/2012 09/02/2012 Testalgia [N50.819] 03/23/2013 09/07/2014 Frequency of urination [R35.0] 03/23/2013 04/01/2019 Xerosis cutis [L85.3] 04/15/2013 09/07/2014 Keratosis pilaris [L85.8] 04/15/2013 09/07/2014 Irritant dermatitis [L24.9] 04/15/2013 09/07/2014 Renal cyst [N28.1] 09/29/2013 10/05/2019 (more content not included)... Normal [facility] ECHOCARDIOGRAM COMPLETE W CO NTRASTon 02-29-2024 ECHOCARDIOGRAM COMPLETE W CONTRAST Patient Info Name: AYLEEN MILLAN Age: 83 years : 1940 Gender: Male Ht: 175 cm Wt: 98 kg BSA: 2.21 m2 HR: 63 bpm BP: 132 / 59 mmHg Heart Rhythm: Sinus Rhythm Technical Quality: Fair Exam Date: 02/29/2024 9:08 AM Patient Status: Outpatient Meringuer: Marie Glaser, ANAYELI, RVT Exam Type: ECHOCARDIOGRAM COMPLETE W CONTRAST Study Info Indications I42.2 - Other hypertrophic cardiomyopathy Referring Physician: MELANIE BURCIAGA ; [id number] BMI: 31.75 kg/m2 Summary 1. This study was technically limited, Definity IV contrast was used to enhance endocardial definition. 2. Left ventricular systolic function is normal with an ejection fraction by Biplane Method of Discs of 68 %. Maximal septal thickness of 1.7 cm.. 3. No evidence of LVOT obstruction. 4. Right ventricular size and systolic function are normal. 5. There is grade 1 diastolic dysfunction, consistent with impaired relaxation and low or normal left atrial pressures. 6. There is mild mitral valve regurgitation. 7. Overall unchanged from previous echo from 2021 personally reviewed. History/Risk Factors Hypertension: Yes Dyslipidemia: Yes Peripheral Arterial Disease (PAD): Yes Cardiomyopathy/LV Systolic Dysfunction: Yes Tobacco Use: Never History/Risk Factors RBBB. HOCM. Procedure(s): Complete two-dimensional, color flow and Doppler transthoracic echocardiogram is performed with contrast. Definity explained to patient. Patient verbalizes understanding and agrees to proceed. Definity 1.3ml/8.7ml normal sterile saline 2 ml total given IV over 30-60 seconds. Left Ventricle Left ventricular chamber dimension is normal. Left ventricular systolic function is normal with an ejection fraction by Biplane Method of Discs of 68 %. Maximal septal thickness of 1.7 cm.. Normal left ventricular mass. Left ventricular segmental wall motion is normal. There is grade 1 diastolic dysfunction, consistent with impaired relaxation and low or normal left atrial pressures. There is mild left ventricular concentric remodeling. Right Ventricle Right ventricular size and systolic function are normal. Left Atria Left atrial chamber is normal with a left atrial volume index of 26 ml/m2 by BP MOD. Right Atria Right atrial chamber dimension is normal. Aortic Valve The aortic valve is trileaflet. There is mild aortic valve sclerosis. There is no aortic valve stenosis. There is no aortic valve regurgitation. Pulmonic Valve The pulmonic valve is normal. There is no pulmonic valve stenosis. There is no pulmonic regurgitation. Mitral Valve The mitral valve has normal leaflets and calcified annulus. There is no mitral valve stenosis. There is mild mitral valve regurgitation. Tricuspid Valve The tricuspid valve leaflets are normal. There is no significant tricuspid valve stenosis. There is trace tricuspid valve regurgitation. There is no pulmonary hypertension, estimated right ventricle systolic pressure is 15 mmHg. Pericardium/Pleural There is no pericardial effusion. Inferior Vena Cava Normal inferior vena cava with >50% collapse upon inspiration consistent with normal right atrial pressure. Aorta The aortic measurements are indexed to age and body surface area. The aortic root is normal measuring 3.3 cm with an index of 1.5 cm/m2. The proximal ascending aorta is normal measuring 3.1 cm with an index of 1.4 cm/m2. Wall Motion Scoring Wall Motion Scoring Index: 1.00 Left Ventricular Outflow Tract Name Value Normal LVOT 2D LVOT Diameter 2.2 cm LVOT Doppler LVOT Peak Velocity 1.0 m/s LVOT Peak Gradient 4 mmHg LVOT Mean Gradient 2 mmHg LVOT VTI 26 cm LVOT VTI/AV VTI Ratio 0.5 LVOT Stroke Volume 98 ml LVOT Stroke Index 44.31 ml/m2 Pulmonic Valve Name Value Normal RVOT Doppler RVOT Peak Velocity 56 cm/s RVOT Peak Gradient 1 mmHg RVOT Mean Gradient 1 mmHg RVOT VTI 14 cm PV Doppler PV Peak Velocity 1.07 m/s PV Peak Gradient 5 mmHg PV Mean Gradient 3 mmHg PV VTI 27 cm Mitral Valve Name Value Normal MV Doppler (more content not included)... Normal [facility] Comprehensive metabolic 2000 panelon 02-11-2024 Albumin [Mass/Vol] 4.0 g/dL 3.2 - 5.2 g/dL [facility] ALP [Catalytic activity/Vol] 75 U/L 40 - 150 U/L [facility] ALT [Catalytic activity/Vol] 15 U/L 0-50 U/L [facility] Anion gap [Moles/Vol] 13 mmol/L 10 - 20 mmol/L [facility] AST [Catalytic activity/Vol] 21 U/L 0-50 U/L [facility] Bilirubin [Mass/Vol] 0.3 mg/dL 0.0 - 1 .3 mg/dL [facility] Calcium [Mass/Vol] 8.7 mg/dL 8.4 - 10. 2 mg/dL [facility] Chloride [Moles/Vol] 104 mmol/L 98 - 10 8 mmol/L [facility] Creatinine [Mass/Vol] 1.04 mg/dL 0.80 - 1.30 mg/dL [facility] GFR/1.73 sq M.predicted CKD-EPI (S/P/Bld) [Vol rate/Area] 71 - PINF [facility] Comment on above: Estimated GFR was ca lculated using the 2020 CKD-EPI creatinine equation. Glucose [Mass/Vol] 152 mg/dL High 65 - 99 mg/dL [facility] HCO3 [Moles/Vol] 26 mmol/L 21 - 32 mmol/L [facility] Interpretation and review of laboratory results Abnormal [facility] Potassium [Moles/Vol] 4.0 mmol/L 3.5 - 5.1 mmol/L [facility] Protein [Mass/Vol] 6.4 g/dL 6.0 - 8.0 g/dL [facility] Sodium [Moles/Vol] 139 mmol/L 135 - 145 mmol/L [facility] Urea nitrogen [Mass/Vol] 14 mg/dL 8 - 25 mg/dL [facility] Urea nitrogen/Creatinine [Mass ratio] 13.5 mg/mg 10.0 - 20.0 [facility] has implemented the eGFR calculation approach that does not have a coefficient for race that conforms to the NKF-ASN Task Force Recommendations. [facility] No Panel Informationon 02-10 [facility] TSH DL <= 0.005 mIU/L Qnon 0 02-11-2024 Interpretation and review of laboratory results Normal [facility] TSH Qn 3.87 m[IU]/L [facility] Ultrasound duplex venous leg lefton 02-11-2024 Patient Info Name: AYLEEN MILLAN Age: 83 years : 1940 Gender: Male Exam Date: 02/11/2024 3:38 PM Patient Status: Outpatient Mgmt Consultant: Yvrose Jaeger RDMS (AB) RVS Referring Physician: Melanie Burciaga MD; Indications R60.0 - Localized edema Procedure Description 58194 Duplex examination using B-mode, color and spectral Doppler of extremity veins including responses to compression and other maneuvers; unilateral or limited study. Conclusions * No evidence of deep or superficial vein thrombosis in the left lower extremity. Risk Factors Patient has a history of hypertension, hyperlipidemia and malignancy. . Report Signatures Finalized by ALEXANDRA Srivastava DO on 02/11/2024 04:05 PM External Iliac: - External Iliac: - External Iliac: - External Iliac: - External Iliac: Normal External Iliac: Normal Common Femoral: Complete Common Femoral: Normal Common Femoral: Normal Common Femoral: Complete Common Femoral: Normal Common Femoral: Normal Femoral: - Femoral: Complete Femoral: - Femoral: Normal Femoral: - Femoral: Normal Peroneal: - Peroneal: Complete Peroneal: - Peroneal: - Peroneal: - Peroneal: - Profunda Femoral: - Profunda Femoral: - Profunda Femoral: Complete Profunda Femoral: - Profunda Femoral: - Popliteal: - Popliteal: Complete Popliteal: - Popliteal: Normal Popliteal: - Popliteal: Normal Posterior Tibial: - Posterior Tibial: Complete Posterior Tibial: - Posterior Tibial: - Posterior Tibial: - Posterior Tibial: - Gastrocnemius: - Gastrocnemius: - Gastrocnemius: - Gastrocnemius: - Gastrocnemius: - Gastrocnemius: - Soleal: - Soleal: - Soleal: - Soleal: - Soleal: - Soleal: - Great Saphenous: - Great Saphenous: Complete Great Saphenous: - Great Saphenous: Normal Great Saphenous: - Great Saphenous: Normal Small Saphenous: - Small Saphenous: - Small Saphenous: - Small Saphenous: - Small Saphenous: - Small Saphenous: - - FUJI SYNAPSE CV Daryl Ferguson III, DO - 02/11/2024 Patient Info Name: AYLEEN MILLAN Age: 83 years : 1940 Gender: Male Exam Date: 02/11/2024 3:38 PM Patient Status: Outpatient Mgmt Consultant: Yvrose Jaeger RDMS (AB) RVS Referring Physician: Melanie Burciaga MD; Indications R60.0 - Localized edema Procedure Description 92867 Duplex examination using B-mode, color and spectral Doppler of extremity veins including responses to compression and other maneuvers; unilateral or limited study. Conclusions * No evidence of deep or superficial vein thrombosis in the left lower extremity. Risk Factors Patient has a history of hypertension, hyperlipidemia and malignancy. . Report Signatures Finalized by Ayleen Ferguson DO RPVI on 02/11/2024 04:05 PM External Iliac: - External Iliac: - External Iliac: - External Iliac: - External Iliac: Normal External Iliac: Normal Common Femoral: Complete Common Femoral: Normal Common Femoral: Normal Common Femoral: Complete Common Femoral: Normal Common Femoral: Normal Femoral: - Femoral: Complete Femoral: - Femoral: Normal Femoral: - Femoral: Normal Peroneal: - Peroneal: Complete Peroneal: - Peroneal: - Peroneal: - Peroneal: - Profunda Femoral: - Profunda Femoral: - Profunda Femoral: Complete Profunda Femoral: - Profunda Femoral: - Popliteal: - Popliteal: Complete Popliteal: - Popliteal: Normal Popliteal: - Popliteal: Normal Posterior Tibial: - Posterior Tibial: Complete Posterior Tibial: - Posterior Tibial: - Posterior Tibial: - Posterior Tibial: - Gastrocnemius: - Gastrocnemius: - Gastrocnemius: - Gastrocnemius: - Gastrocnemius: - Gastrocnemius: - Soleal: - Soleal: - Soleal: - Soleal: - Soleal: - Soleal: - Great Saphenous: - Great Saphenous: Complete Great Saphenous: - Great Saphenous: Normal Great Saphenous: - Great Saphenous: Normal Small Saphenous: - Small Saphenous: - Small Saphenous: - Small Saphenous: - Small Saphenous: - Small Saphenous: - - [facility] Radiology Study observation (narrative) [facility] Ultrasound duplex venous leg leftOrdered By: Daryl Ferguson on 02-11-2024 [facility] Work Phone: No Panel Informationon 09-25 [facility] SPIROMETRY WITH DILATOR IF O BSTRUCTEDon 09-25-2023 DLCO (ml/min/mmHg) 18.27 ml/min/mmHg [facility] DLCO/VA (ml/min/mmHg/L) 4.13 ml/min/mmHg/L [facility] ERV BOX (L) 0.41 L [facility] URZ54-12% PRE (L/S) 0.70 L/S [facility] FEV1 PRE (L) 1.87 L [facility] FEV1/FVC PRE (%) 65 % [facility] FRC Box (L) 2.63 L [facility] FVC PRE (L) 2.87 L [facility] IC BOX (L) 2.18 L [facility] PEF PRE (L/S) 7.31 L/S [facility] RV Box (L) 2.14 L [facility] RV/TLC Box (%) 46 % [facility] TLC Box (L) 4.71 L [facility] VA (L) 4.43 L [facility] VC (L) BOX 2.59 L [facility] ECG 12 leadon 08-05-2023 Atrial Rate [facility] [place] [facility] P-R Interval [facility] Q-T Interval [facility] Q-T Interval (corrected) [facility] QRS Duration [facility] QTC Calculation (Bezet) [facility] R [place] [facility] T [place] [facility]ricular [facility] XR Ribs - right Views and Ch est PAon 03-13-2023 IMPRESSION: No acute radiographic abnormality. Nuclear Technologist: JUAN DIEGO Transcribe Date/Time: Mar 13 2023 1:06P Dictated by : APPLE WILLS MD This examination was interpreted and the report reviewed and electronically signed by: APPLE WILLS MD on Mar 13 2023 1:10PM EST DIVISION OF RADIOLOGY * * *Final Report* * * DATE OF EXAM: Mar 11 2023 1:00PM WOX 5244 - XR RIB/CHST 3V AP RIB/OBL/CHST R / PROCEDURE REASON: Atypical chest pain * * * * Physician Interpretation * * * * EXAMINATION: X-ray chest and right ribs Clinical History: Atypical chest pain M: XC1_4 Comparison: Chest x-ray 01/08/2023 RESULT: Lines, tubes, and devices: None. Lungs and pleura: No consolidation. No lung mass. No pleural effusion. Cardiomediastinal silhouette: Normal cardiomediastinal silhouette. Musculoskeletal: No acute fracture DIVISION OF RADIOLOGY Provider, [facility] - 03/13/2023 * * *Final Report* * * DATE OF EXAM: Mar 11 2023 1:00PM WOX 5244 - XR RIB/CHST 3V AP RIB/OBL/CHST R / PROCEDURE REASON: Atypical chest pain * * * * Physician Interpretation * * * * EXAMINATION: X-ray chest and right ribs Clinical History: Atypical chest pain M: XC1_4 Comparison: Chest x-ray 01/08/2023 RESULT: Lines, tubes, and devices: None. Lungs and pleura: No consolidation. No lung mass. No pleural effusion. Cardiomediastinal silhouette: Normal cardiomediastinal silhouette. Musculoskeletal: No acute fracture IMPRESSION IMPRESSION: No acute radiographic abnormality. Nuclear Technologist[facility] Transcribe Date/Time: Mar 13 2023 1:06P Dictated by : APPLE WILLS MD This examination was interpreted and the report reviewed and electronically signed by: APPLE WILLS MD on Mar 13 2023 1:10PM EST [facility] XR Ribs - right Views and est PAOrdered By: [facility] Provider on 03-13-2023 [facility] ALBUMIN/CREAT RATIO RNDru Taylor 03-11-2023 Albumin DL <= 20 mg/L (U) [Mass/Vol] [facility] Albumin/Creatinine (U) [Mass ratio] [facility] Creatinine (U) [Mass/Vol] 32.9 mg/dL 20.0 - 300.0 mg/dL [facility] XR Ribs - right Views and Ch est PAon 03-11-2023 Radiology Study observation (narrative) [facility] Basic metabolic 2000 panelon 01-29-2023 Anion gap [Moles/Vol] 10 mmol/L 10 - 20 mmol/L [facility] Calcium [Mass/Vol] 9.3 mg/dL 8.4 - 10. 2 mg/dL [facility] Chloride [Moles/Vol] 106 mmol/L 98 - 10 8 mmol/L [facility] Creatinine [Mass/Vol] 1.04 mg/dL 0.80 - 1.30 mg/dL [facility] GFR/1.73 sq M.predicted CKD-EPI (S/P/Bld) [Vol rate/Area] 71 - PINF [facility] Comment on above: Estimated GFR was ca lculated using the 2020 CKD-EPI creatinine equation. Glucose [Mass/Vol] 109 mg/dL High 65 - 99 mg/dL [facility] HCO3 [Moles/Vol] 27 mmol/L 21 - 32 mmol/L [facility] Interpretation and review of laboratory results Abnormal [facility] Potassium [Moles/Vol] 4.2 mmol/L 3.5 - 5.1 mmol/L [facility] Sodium [Moles/Vol] 139 mmol/L 135 - 145 mmol/L [facility] Urea nitrogen [Mass/Vol] 15 mg/dL 8 - 25 mg/dL [facility] Urea nitrogen/Creatinine [Mass ratio] 14.4 mg/mg 10.0 - 20.0 [facility] has implemented the eGFR calculation approach that does not have a coefficient for race that conforms to the NKF-ASN Task Force Recommendations. [facility] XR CHEST 2V FRONTAL/LATon [facility] XR Chest PA and Lateralon IMPRESSION: No acute radiographic abnormality. Nuclear Technologist: [facility] Transcribe Date/Time: Jan 08 2023 6:18P Dictated by : NICK GUPTA MD This examination was interpreted and the report reviewed and electronically signed by: NICK GUPTA MD on Jan 08 2023 6:18PM [facility] DIVISION OF RADIOLOGY * * *Final Report* * * DATE OF EXAM: Jan 08 2023 3:44PM WOX 5291 - XR CHEST 2V FRONTAL/LAT / PROCEDURE REASON: multiple diagnoses * * * * Physician Interpretation * * * * EXAMINATION: CHEST RADIOGRAPH (2 VIEW FRONTAL & LATERAL) CLINICAL HISTORY: Sinobronchitis Sinobronchitis MQ: XC2_6 EXAM DATE/TIME: 01/08/2023 3:44 PM COMPARISON: 09/26/2021 RESULT: Lines, tubes, and devices: None. Lungs and pleura: No consolidation. No lung mass. No pleural effusion. No pneumothorax. Cardiomediastinal silhouette: Normal cardiomediastinal silhouette. Bones and soft tissues: Unremarkable. DIVISION OF RADIOLOGY Provider, [facility] - 01/08/2023 * * *Final Report* * * DATE OF EXAM: Jan 08 2023 3:44PM WOX 5291 - XR CHEST 2V FRONTAL/LAT / PROCEDURE REASON: multiple diagnoses * * * * Physician Interpretation * * * * EXAMINATION: CHEST RADIOGRAPH (2 VIEW FRONTAL & LATERAL) CLINICAL HISTORY: Sinobronchitis Sinobronchitis MQ: XC2_6 EXAM DATE/TIME: 01/08/2023 3:44 PM COMPARISON: 09/26/2021 RESULT: Lines, tubes, and devices: None. Lungs and pleura: No consolidation. No lung mass. No pleural effusion. No pneumothorax. Cardiomediastinal silhouette: Normal cardiomediastinal silhouette. Bones and soft tissues: Unremarkable. IMPRESSION IMPRESSION: No acute radiographic abnormality. Nuclear Technologist: JUAN DIEGO Transcribe Date/Time: Jan 08 2023 6:18P Dictated by : NICK GUPTA MD This examination was interpreted and the report reviewed and electronically signed by: NICK GUPTA MD on Jan 08 2023 6:18PM EST [facility] Radiology Study observation (narrative) [facility] XR Chest PA and LateralOrder ed By: Cc Provider on 01-08-[address] [facility] [address] CHEST WO IVCONon 10-15-20 [facility] Therapy Communicationon 06-24 Therapy Communication Message AYLEEN MILLAN was (D/C)- last seen: 03/07/22. pt will be formally d/c from skilled PT as he has not attended since 03/07/22. Signatures Electronically signed by : Roxane Steen PT; Jul 16 2022 9:58AM EST (Author) Normal [facility] ECG 12 leadon 07-02-2022 Atrial Rate [facility] [place] [facility] P-R Interval [facility] Q-T Interval [facility] Q-T Interval (corrected) [facility] QRS Duration [facility] QTC Calculation (Bezet) [facility] R [place] [facility] T [place] [facility] Ventricular Rate [facility] - Drug toxicology on 04-14-2022 Amphetamines Ql (U) Negative [facility] Work Phone: Benzodiazepines Ql (U) Negative [facility] Work Phone: Cannabinoids Screen Ql (U) Negative [facility] Work Phone: Cocaine Ql (U) Negative [facility] Work Phone: [phone] Opiates Ql (U) Positive [facility] Work Phone: [phone] No Panel Informationon 04-14 MDMA (Ecstasy) Screen Negative [facility] Work Phone: [phone] Urine Barbiturates Screen Negative [facility] Work Phone: [phone] Urine Drug Screen Comment [facility] Work Phone: Comment on above: CONFIRMATORY TESTING FOR ALL POSITIVE URINE DRUG SCREENRESULTS WILL ONLY BE SENT OUT UPON PHYSICIAN ORDER. VISTA Urine Drug Screen methods provide only preliminaryanalytical test results. A more specific alternate chemicalmethod must be used in order to obtain a confirmedanalytical result. Gas chromatography/mass spectrometery(GC/MS) is the preferred confirmatory method. Clinicalconsideration and professional judgement should be appliedto any drug of abuse test result, particularly whenpreliminary positive results are used. URINE TCA TESTING MUST BE ORDERED SEPARATELY. USE TESTMNEMONIC: [facility] Urine Methadone Screen Negative [facility] Work Phone: Urine phencyclidine (PCP) de tectionon 04-14-2022 Phencyclidine Ql (U) Negative [facility] Work Phone: CT ABD/PEL W IVCONon 022 [facility] XR ABDOMEN 1V SUPINEon 03-10 [facility] PT Progress Noteon PT Progress Note No report was sent Normal [facility] Progress Note Therapy Diagnosis Assessed Back pain (724.5) (M54.9) Plan Goals: Goals set and discussed today. In 2 weeks, pt will be IND and compliant with HEP for participation throughout POC. Pain: In 4 weeks, pt will verbalize max back pain to 4/10 for cooking. Range Of Motion/Joint Mobility: In 4 weeks, pt will demo lumbar AROM to 50% ext, 75% R rot for ADLs. Strength: In 4 weeks, pt will demo 5 /5 MMT of BLE for ease with ambulation and prolonged standing. , In 4 weeks, pt will score 20% or lower on the BLANK to demo improved QOL. , In 4 weeks, pt will demo 0.25/5 core MMT using Sahrmann scale for ease with standing and ambulating. Planned interventions include: aquatic therapy, cryotherapy, dry needling, education/instruction, electrical stimulation, home program, hot pack, kinesiotaping, manual therapy, neuromuscular re-education, self care/home management, therapeutic activities, therapeutic exercises, ultrasound and IASTM, cupping. Frequency and duration: 2 time(s) a week, for 4 weeks, for 8 visits. Potential to achieve rehab goals is good Progress DLS for continued improved functional mobility and core strength. Assessment MET correction completed again d/t misalignment. Tightness with piriformis stretches. Added supine hip flexor stretch d/t tightness. Instructed on proper cane use on the R and observed patient to make sure technique was correct. Adult Risk Screening There are no spiritual/cultural practices/values/needs that are important to know Initial Fall Risk Screening: AYLEEN has not fallen in the last 6 months. AYLEEN has a fear of falling. He does not need assistance with sitting, standing or walking. Does not need assistance walking in his home. He does not need assistance in an unfamiliar setting. The patient is not using an assistive device. Care Plan: Low Risk: Environmental for all patients and low risk patients: Offer assistance as needed or requested, keep environment free of obstacles, keep floor clean and dry, keep room lighting, wheelchair brakes on, bed/ stretcher locked and in low position if applicable, non-slip footwear if applicable, walker/cane available if needed, side rails up if applicable and pre-emptive toileting. Please identify location of pain: Low back and B LE's to knee. Pain Quality: aching. Insurance Insurance reviewed Visit number: 4 POC: 03/01 Insurance: primary medicare. secondary anthem supplement Evaluating therapist: Roxane Steen PT, DPT PT dx: M54.9 Precautions: low fall risk (age) Beginnin2021 Endin2021 Subjective Patient reports:. Patient reports that he has questions pertaining to cane use on the R. He has been using cane on L at home and would like instruction on proper use on the R. Only uses in the mornings when he gets up. 0/10 pain currently. Patient identified by name and date of . Home program performing as directed: Partially . Due to pain. Precautions: Fall Risk: low Treatment Time in clinic started at 10:00 Time in clinic ended at 10:46 Total time in clinic is 46 minutes. Total timed code time is 45 minutes. Therapeutic exercise (20320): timed minutes 35, units 2 . NuStep 5? SKC 5 x 10? hold DKC x10 5? Hold Alt seated march green TB 2 x 10 Supine hip abd green TB 2 x 10 Supine hip add 2 x 10 3?hold Hooklying TrA x10 5? hold Hooklying TrA w/january 2x10 LTR 2x10 5? ea side Hooklying QL stretch 3 x 30? Supine piriformis stretch 3x30 sec ea Supine hip flexor stretc 2 x 30 ea IT band stretch 2 x 20? (X) Cane instruction 2' seated HS stretch 3x30 sec ea (D/C until patient presets with pelvic alignment consistently). Slantboard 2x1' (X due to pain) . Manual Therapy (82816): timed minutes 10, units 1 . MET to correct L ant innominate rotation Completed STW to IT, hip flexors and QL and iliopsoas release. 'Scores and Scales' Signatures Electronically signed by : Becky Bauer PTA; Mar 07 2022 11:10AM EST (Author) Electronically signed by : Roxane Steen PT; Mar 07 2022 1:01PM EST [facility] Progress Noteon 2 PT Progress Note Therapy Diagnosis Assessed Back pain (724.5) (M54.9) Plan Goals: Goals set and discussed today. In 2 weeks, pt will be IND and compliant with HEP for participation throughout POC. Pain: In 4 weeks, pt will verbalize max back pain to 4/10 for cooking. Range Of Motion/Joint Mobility: In 4 weeks, pt will demo lumbar AROM to 50% ext, 75% R rot for ADLs. Strength: In 4 weeks, pt will demo 5 /5 MMT of BLE for ease with ambulation and prolonged standing. , In 4 weeks, pt will score 20% or lower on the BLANK to demo improved QOL. , In 4 weeks, pt will demo 0.25/5 core MMT using Sahrmann scale for ease with standing and ambulating. Planned interventions include: aquatic therapy, cryotherapy, dry needling, education/instruction, electrical stimulation, home program, hot pack, kinesiotaping, manual therapy, neuromuscular re-education, self care/home management, therapeutic activities, therapeutic exercises, ultrasound and IASTM, cupping. Frequency and duration: 2 time(s) a week, for 4 weeks, for 8 visits. Potential to achieve rehab goals is good will continue to work on progressing toward plan of care as tolerated to be able to tolerate prolonged ambulation and movement with no increased symptoms. Assessment Patient identified by name and date of . Patient presented with increased pain this date, added/changed exercises to supine due to pain. He presented with pelvic malalignment that responded well to STW and Leg pull. Reviewed sleeping positions for reduction of Sx when he awakes, he verbalized good understanding. Added SKC and DKC and reviewed for HEP he demonstrated decreased LE Sx after preforming. WIll hold HS stretch until patient presets with pelvic alignment consistently. Adult Risk Screening There are no spiritual/cultural practices/values/needs that are important to know Initial Fall Risk Screening: AYLEEN has not fallen in the last 6 months. AYLEEN has a fear of falling. He does not need assistance with sitting, standing or walking. Does not need assistance walking in his home. He does not need assistance in an unfamiliar setting. The patient is not using an assistive device. Care Plan: Low Risk: Environmental for all patients and low risk patients: Offer assistance as needed or requested, keep environment free of obstacles, keep floor clean and dry, keep room lighting, wheelchair brakes on, bed/ stretcher locked and in low position if applicable, non-slip footwear if applicable, walker/cane available if needed, side rails up if applicable and pre-emptive toileting. Pain Scale: On a scale of 0 to 10, the patient rates the pain at 8. Please identify location of pain: Low back and B LE's to knee. Pain Quality: aching. Insurance Insurance reviewed Visit number: 4 POC: 03/01 Insurance: primary medicare. secondary anthem supplement Evaluating therapist: Roxane Steen PT, DPT PT dx: M54.9 Precautions: low fall risk (age) Beginnin2021 Endin2021 Subjective Patient reports:. Patient reported he was experiencing increased pain the day prior that reduced as the day progressed but awoke with increased pain. He reported 0/10 pain after treatment. Home program performing as directed: Partially . Due to pain. Precautions: Fall Risk: low Treatment Time in clinic started at 10:45 Time in clinic ended at 11:30 Total time in clinic is 45 minutes. Total timed code time is 43 minutes. Therapeutic exercise (34889): timed minutes 33, units 3 . NuStep 5? SKC 5 x 10? hold (N) DKC x10 5? Hold (N) Alt seated march green TB 2 x 10 Supine hip abd green TB 2 x 10 Supine hip add 2 x 10 3?hold Hooklying TrA x10 5? hold Hooklying TrA w/january 2x10 LTR 2x10 5? ea side Hooklying QL stretch 3 x 30? Supine piriformis stretch 3x30 sec ea IT band stretch 2 x 20? (X) seated HS stretch 3x30 sec ea (D/C until patient presets with pelvic alignment consistently). Slantboard 2x1' (X due to pain) . Manual Therapy (51535): timed minutes 10, units 1 . MET to correct L ant innominate rotation Completed STW to IT, hip flexors and QL and iliopsoas release. 'Scores and Scales' Signatures Electronically signed by : Sherlyn Isabel LEAD LEVEL DESIGNER; Mar 05 2022 11:42AM EST (Author) Electronically signed by : Roxane Steen PT; Mar 06 2022 7:44AM EST Normal [facility] PT Progress Noteon 2 PT Progress Note Therapy Diagnosis Assessed Pain of back and lower extremity (724.5,729.5) (M54.9,M79.609) Plan Goals: Goals set and discussed today. In 2 weeks, pt will be IND and compliant with HEP for participation throughout POC. Pain: In 4 weeks, pt will verbalize max back pain to 4/10 for cooking. Range Of Motion/Joint Mobility: In 4 weeks, pt will demo lumbar AROM to 50% ext, 75% R rot for ADLs. Strength: In 4 weeks, pt will demo 5 /5 MMT of BLE for ease with ambulation and prolonged standing. , In 4 weeks, pt will score 20% or lower on the BLANK to demo improved QOL. , In 4 weeks, pt will demo 0.25/5 core MMT using Sahrmann scale for ease with standing and ambulating. Planned interventions include: aquatic therapy, cryotherapy, dry needling, education/instruction, electrical stimulation, home program, hot pack, kinesiotaping, manual therapy, neuromuscular re-education, self care/home management, therapeutic activities, therapeutic exercises, ultrasound and IASTM, cupping. Frequency and duration: 2 time(s) a week, for 4 weeks, for 8 visits. Potential to achieve rehab goals is good will continue to work on progressing toward plan of care as tolerated to be able to tolerate prolonged ambulation and movement with no increased symptoms. Assessment Patient identified by name and Patient tolerated treatment with mild difficulty. Patient demo'g weakness and increased tightness in QL and hamstrings. Patient demo'g increased fatigue during treatment requiring rest breaks in between reps. Patient reports feeling looser at end of treatment. Adult Risk Screening There are no spiritual/cultural practices/values/needs that are important to know Initial Fall Risk Screening: AYLEEN has not fallen in the last 6 months. AYLEEN has a fear of falling. He does not need assistance with sitting, standing or walking. Does not need assistance walking in his home. He does not need assistance in an unfamiliar setting. The patient is not using an assistive device. Care Plan: Low Risk: Environmental for all patients and low risk patients: Offer assistance as needed or requested, keep environment free of obstacles, keep floor clean and dry, keep room lighting, wheelchair brakes on, bed/ stretcher locked and in low position if applicable, non-slip footwear if applicable, walker/cane available if needed, side rails up if applicable and pre-emptive toileting. Pain Scale: On a scale of 0 to 10, the patient rates the pain at 3. Please identify location of pain: Low back and B LE's to knee. Pain Quality: aching. Insurance Insurance reviewed Visit number: 3 POC: 01/01 Insurance: primary medicare. secondary anthem supplement Evaluating therapist: Roxane Steen PT, DPT PT dx: M54.9 Precautions: low fall risk (age) Beginnin2021 Endin2021 Subjective Patient reports:. Patient reports always having pain. Rating it a 3/10 this date. Precautions: Fall Risk: low Treatment Time in clinic started at 1131 am Time in clinic ended at 1215 pm Total time in clinic is 44 minutes. Total timed code time is 41 minutes. Therapeutic exercise (66585): timed minutes 41, units 3 . NuStep 5? (N) Slantboard 2x1' (N) Alt seated march green TB 2 x 10 seated hip abd green TB 2 x 10 seated hip add 2 x 10 3?hold Hooklying TrA x10 5? hold Hooklying TrA w/march 2x10 (P, reps) LTR 2x10 5? ea side (P, reps) Hooklying QL stretch 3 x 30? (P, reps) Seated piriformis stretch 3x30 sec ea (P, reps and time) IT band stretch 2 x 20? seated HS stretch 3x30 sec ea (P, reps and time). Manual Therapy (80809): timed minutes , units . MET to correct L ant innominate rotation Completed STW to IT, hip flexors and QL and iliopsoas release. 'Scores and Scales' Signatures Electronically signed by : Katya Alvarez PTA; Feb 28 2022 12:30PM EST (Author) Electronically signed by : Roxane Steen, PT; Feb 28 2022 12:49PM EST Normal [facility] PT Progress Noteon 2 PT Progress Note Therapy Diagnosis Assessed Pain of back and lower extremity (724.5,729.5) (M54.9,M79.609) Plan Goals: Goals set and discussed today. In 2 weeks, pt will be IND and compliant with HEP for participation throughout POC. Pain: In 4 weeks, pt will verbalize max back pain to 4/10 for cooking. Range Of Motion/Joint Mobility: In 4 weeks, pt will demo lumbar AROM to 50% ext, 75% R rot for ADLs. Strength: In 4 weeks, pt will demo 5 /5 MMT of BLE for ease with ambulation and prolonged standing. , In 4 weeks, pt will score 20% or lower on the BLANK to demo improved QOL. , In 4 weeks, pt will demo 0.25/5 core MMT using Sahrmann scale for ease with standing and ambulating. Planned interventions include: aquatic therapy, cryotherapy, dry needling, education/instruction, electrical stimulation, home program, hot pack, kinesiotaping, manual therapy, neuromuscular re-education, self care/home management, therapeutic activities, therapeutic exercises, ultrasound and IASTM, cupping. Frequency and duration: 2 time(s) a week, for 4 weeks, for 8 visits. Potential to achieve rehab goals is good Progress with ROM and core stability with STW as needed for increased ease with standing and ambulation tolerance. Progress with POC, as tolerated. Assessment Patient identified by name and date of . MET preformed due to pelvic malalignment, that responded well. He presented with palpable tension in QL hip flexors and IT band that responded well to STW. Reviewed HEP due to patient request he required verbal and tactile cues to preform correctly. Adult Risk Screening There are no spiritual/cultural practices/values/needs that are important to know Initial Fall Risk Screening: AYLEEN has not fallen in the last 6 months. AYLEEN has a fear of falling. He does not need assistance with sitting, standing or walking. Does not need assistance walking in his home. He does not need assistance in an unfamiliar setting. The patient is not using an assistive device. Care Plan: Low Risk: Environmental for all patients and low risk patients: Offer assistance as needed or requested, keep environment free of obstacles, keep floor clean and dry, keep room lighting, wheelchair brakes on, bed/ stretcher locked and in low position if applicable, non-slip footwear if applicable, walker/cane available if needed, side rails up if applicable and pre-emptive toileting. Pain Scale: On a scale of 0 to 10, the patient rates the pain at 3. Please identify location of pain: Low back and B LE's to knee. Pain Quality: aching. Insurance Insurance reviewed Visit number: 2 POC: 01/01 Insurance: primary medicare. secondary anthem supplement Evaluating therapist: Roxane Steen PT, DPT PT dx: M54.9 Precautions: low fall risk (age) Beginnin2021 Endin2021 Subjective Patient reports:. Patient reported 2/10 pain. Home program performing as directed: No. Precautions: Fall Risk: low Treatment Time in clinic started at 10:45 Time in clinic ended at 11:30 Total time in clinic is 45 minutes. Total timed code time is 43 minutes. Therapeutic exercise (73016): timed minutes 31, units 2 . NuStep 5? (N) Alt seated march green TB 2 x 10 (P) seated hip abd green TB 2 x 10 (P) seated hip add 2 x 10 3?hold (P) Hooklying TrA x10 5? hold (N) Hooklying TrA w/january x10 (N) LTR x10 5? ea side (N) Hooklying QL stretch 2 x 20? (N) Seated piriformis stretch x20 sec ea IT band stretch 2 x 20? (N) seated HS stretch x20 sec ea (held). Manual Therapy (08444): timed minutes 12, units 1 . MET to correct L ant innominate rotation Completed STW to IT, hip flexors and QL and iliopsoas release. 'Scores and Scales' Signatures Electronically signed by : Sherlyn Isabel LEAD LEVEL DESIGNER; Feb 26 2022 11:36AM EST (Author) Electronically signed by : Roxane Steen, PT; Feb 26 2022 12:58PM EST Normal [facility] PT Initial Evaluationon 01-22 PT Initial Evaluation Therapy Diagnosis Assessed Pain of back and lower extremity (724.5,729.5) (M54.9,M79.609) Plan of Care Goals: Goals set and discussed today. In 2 weeks, pt will be IND and compliant with HEP for participation throughout POC. Pain: In 4 weeks, pt will verbalize max back pain to 4/10 for cooking. Range Of Motion/Joint Mobility: In 4 weeks, pt will demo lumbar AROM to 50% ext, 75% R rot for ADLs. Strength: In 4 weeks, pt will demo 5 /5 MMT of BLE for ease with ambulation and prolonged standing. , In 4 weeks, pt will score 20% or lower on the BLANK to demo improved QOL. , In 4 weeks, pt will demo 0.25/5 core MMT using Sahrmann scale for ease with standing and ambulating. Planned interventions include: aquatic therapy, cryotherapy, dry needling, education/instruction, electrical stimulation, home program, hot pack, kinesiotaping, manual therapy, neuromuscular re-education, self care/home management, therapeutic activities, therapeutic exercises, ultrasound and IASTM, cupping. Frequency and duration: 2 time(s) a week, for 4 weeks, for 8 visits. Potential to achieve rehab goals is good Plan of care was developed with input and agreement by the patient. Assessment Mr. Millan arrives to outpatient PT with s/s consistent with c/o LBP with radicular symptoms. Pt presents with the following impairments: weakness of core and BLE, tightness of lumbopelvic region, L anterior innominate rotation, decreased lumbar mobility. These impairments contribute to difficulty in activity limitations and participation restrictions including standing >10 mins, ambulating, cooking. The pt will benefit from skilled PT services 2x/week for 4 weeks to address the above stated impairments and functional limitations to maximize participation and ease in household and social related activities. The pt has a good prognosis when considering positive factors including motivation and knowledge of diagnosis with barriers such as chronicity of symptoms. The pt verbalized understanding and agreement to goals and POC. Thank you for this referral and please call [phone] with any questions or concerns. Clinical Presentation: Stable and/or uncomplicated characteristics. Level of Complexity: low Problem List: activity limitations, ADLs/IADLs/self care skills, decreased functional level, decreased knowledge of HEP, flexibility, pain, participation restrictions, range of motion/joint mobility and strength. Reason For Visit Initial Evaluation . M54.9. Referred by: Renetta Marques Adult Risk Screening There are no spiritual/cultural practices/values/needs that are important to know Initial Fall Risk Screening: AYLEEN has not fallen in the last 6 months. AYLEEN does not have a fear of falling. He does not need assistance with sitting, standing or walking. Does not need assistance walking in his home. He does not need assistance in an unfamiliar setting. The patient is not using an assistive device. Care Plan: Low Risk: Environmental for all patients and low risk patients: Offer assistance as needed or requested, keep environment free of obstacles, keep floor clean and dry, keep room lighting, wheelchair brakes on, bed/ stretcher locked and in low position if applicable, non-slip footwear if applicable, walker/cane available if needed, side rails up if applicable and pre-emptive toileting. Insurance Insurance reviewed Visit number: 1 POC: 12/01 Insurance: primary medicare. secondary anthem supplement Evaluating therapist: Roxane Steen PT, DPT PT dx: M54.9 Precautions: low fall risk (age) Beginnin2021 Endin2021 Subjective Current Episode of Functional Impairment and/or Pain Date of onset: 01/22/22 Mechanism of Injury:. Pt is a 81 y/o M arriving to outpatient PT c/o low back pain (L>R) for years. Pain described as achy. Pt rates pain 0/10 currently while at rest however can increase to 7-8/10 in the last week. Pt reports radicular symptoms down B lateral thigh to knee (L>R). Pt had injection 01/30/22 which worked really well to relieve pain but pt states he thinks it is starting to wear off again. Pt reports with walking the R ant thigh goes numb. He denies tingling. Pt reports difficulty/ pain with standing >10 mins, ambulating, cooking. Pt reports pain is relieved with sitting. Pt has attempted PT in 2019 which did not help. Pt denies surgery or injury to back. He saw a surgeon who states he would not be very willing to perform on pt. Pt states he has scoliosis, arthritis, and stenosis. Pt also reports a torn labrum in R hip. Pt enjoys cooking. Medical Screening: Reviewed medical history form with patient and medical screening assessed. Ca, DM, HTN, OA. Current Medical Management:. Patient confirmed name and date of this session. Precautions: Fall Risk: low Functional Assessment Prior level of function: Pt was previously IND in all ADLs with no restrictions. Patient stated goal(s) for treatment include: relieving aj (more content not included)... Normal [facility] ECG 12-LEADon 07-25-2021 Atrial Rate [facility] [place] [facility] P-R Interval [facility] Q-T Interval [facility] Q-T Interval (corrected) [facility] QRS Duration [facility] QTC Calculation (Bezet) [facility] R [place] [facility] T [place] [facility] Ventricular [facility] th [facility] MR Cardiac Morphology With A nd Without Contrast with Velocity Flowon 11-30-2020 [facility] CMR Report Name: AYLEEN MILLAN V : 1940 Scan Date: 2020-11-30 07:58:05 Electronically signed by Melanie Burciaga 15:18:16 VITALS == HEIGHT: 70.00 in (177.80 cm) WEIGHT: 201.00 lbs (91.17 kgs) BSA: 2.09 m FINAL IMPRESSION == Impression LV morphology with asymmetric septal wall hypertrophy with maximal thickness of 2cm with mild chordal RAMÍREZ without significant LVOT obstruction and very mild mid wall hyperenhancement in the inferior septal wall c/w hypertrophic cardiomyopathy. SUMMARY == 79 yo with hx of HCM, cardiac MRI for assessment of cardiac morphology and myocardial scar. 1. Normal LV size with increased septal wall thickness with maximal thickness of 2cm. Quantitative LVEF 76 %. Mild mid myocardial scar in the basal and mid inferior septal wall. 2. Normal RV size and systolic function 3. No hemodynamically significant valvular disease, mild chordal RAMÍREZ noted. LVOT velocity less than 2m/s 4. Normal T1 mapping. LEFT VENTRICLE: Normal LV size with increased septal wall thickness with maximal thickness of 2cm. Normal wall motion, Quantitative LVEF 76 %. Mild mid myocardial scar in the basal and mid inferior septal wall. VIABILITY: LV scar size is 2 %. RIGHT VENTRICLE: Quantitative RVEF 55 %. RV wall thickness is normal. RV cavity size is normal. RV systolic function is normal. LV/RV SEPTUM: The LV/RV septum is normal. LA/RA SEPTUM: The LA/RA septum is normal. LEFT ATRIUM: LA cavity size is normal. RIGHT ATRIUM: RA cavity size is normal. PERICARDIUM: Pericardium is normal. PLEURAL EFFUSION: There is no pleural effusion. AORTIC VALVE: Peak aortic valve velocity 150 cm/sec. Aortic regurgitant volume 0.66 ml. Aortic regurgitant fraction 1 %. Aortic valve leaflets are normal. There is trivial aortic regurgitation. There is no aortic stenosis. MITRAL VALVE: Mitral valve leaflets are normal. No regurgitation. Mild chordal RAMÍREZ TRICUSPID VALVE: Tricuspid valve leaflets are normal. There is no tricuspid regurgitation. There is no tricuspid stenosis. PULMONIC VALVE: Pulmonic valve leaflets are normal. There is no pulmonic regurgitation. There is no pulmonic stenosis. AORTIC ROOT: The aortic root is normal. AAo measures 2.7cm and Rodrick measures 2.1cm at the PA bifurcation. Aortic sinuses measure 3.5cm. CORE EXAM == MEASUREMENTS VOLUMETRIC ANALYSIS . --. LV Reference RV Reference +------+ +-----+- +-----+--------- --+ EDV ml 93 123 ml/m 44 59 ESV ml 22 55 ml/m 11 26 CO L/min L/min/m MASS g 121 g/m 58 SV ml 71 68 ml/m 34 33 EF % 76 55 '------+ +-----+- +-----+--------- --' LV DIMENSIONS WALL THICKNESS - ANTEROSEPTAL: 2.0 cm WALL THICKNESS - INFEROLATERAL: 0.9 cm WALL THICKNESS - MAXIMUM: 2.0 cm LV ROHIT: 4.8 cm LV ESD: 2.7 cm LA DIMENSIONS (LV SYSTOLE) AREA - 4 CHAMBER: 16 cm RA DIMENSIONS (RV SYSTOLE) AREA - 4 CHAMBER: 12 cm AORTIC ROOT DIMENSIONS SINUS OF VALSALVA: 3.5 cm EXTRACELLULAR VOLUME MEASUREMENT PRE-CONTRAST T1 MYOCARDIUM: 1033 msec PRE-CONTRAST T1 LV CAVITY: 1565 msec POST-CONTRAST T1 MYOCARDIUM: 432 msec POST-CONTRAST T1 LV CAVITY: 280 msec HEMATOCRIT: 46 % HEMATOCRIT DATE: 2020-07-13 00:00:00 ECV: 25 % 17 SEGMENT . . Segments Wall Motion Hyperenhancement Stress Perfusion Interpretation + +---- + ---+ +--- + Base Anterior Normal/Hyper None Base Anteroseptal Normal/Hyper None Base Inferoseptal Normal/Hyper 1-25% Base Inferior Normal/Hyper None Base Inferolateral Normal/Hyper None Base Anterolateral Normal/Hyper None Mid Anterior Normal/Hyper None Mid Anteroseptal Normal/Hyper None Mid Inferoseptal Normal/Hyper 1-25% Mid Inferior Normal/Hyper None Mid Inferolateral Normal/Hyper None Mid Anterolateral Normal/Hyper None Apical Anterior Normal/Hyper None Apical Septal Normal/Hyper None Apical Inferior Normal/Hyper None Apical Lateral Normal/Hyper None [place] Normal/Hyper None + +---- + ---+ +--- + RV Segments Wall Motion Hyperenhancement Stress Perfusion Interpretation + +---- + ---+ +--- + RV Basal Anterior Normal/Hyper RV Basal Inferior Normal/Hyper RV Mid Normal/Hyper RV Apical Normal/Hyper ' +---- + ---+ +--- ' FINDINGS SCAR SIZE: 2 % SCAN INFO == GENERAL SCANNER BODY WORK AUTO TRIMMER: FITiST MODEL: Aera PULSE SEQUENCES: SSFP cine, GRE cine, Black-blood LGE (or Beebe-blood), T1-weighted imaging, T2-weighted imaging, Pre-contrast T1 mapping, Post-contrast T1 mapping, T2 mapping, T2* mapping, First-pass perfusion without stress, Phase contrast imaging, Fat-water imaging CONTRAST AGENT TYPE: Dotarem LOT NUMBER: [id number] EXPIRATION DATE: 2025-05-23 00:00:00 GD CONCENTRATION: 0.5 M VOLUME ADMINISTERED: 36 ml DOSAGE: 0.20 mmol/kg SERUM CREATININE: 0.9 mg/dL GFR: 86.30 ml/min/1.73m CREATININE DATE: 2020-11-30 00:00:00 SEDATION SEDATION USED?: No SETUP SCAN TYPE: Clinical PATIENT TYPE: Outpatient INCOMPLETE SCAN: No REASON(S) FOR SCAN: HCM (known/suspect) REFERRING PHYSICIAN: MELANIE BURCIAGA ATTENDING PHYSICIAN: MELANIE BURCIAGA TECHNOLOGIST: Rosenda Hawley == [facility] Codes 54639, [id number] Report generated by [email or web address], a product of [employer] [facility] Interface, Rad In [employer] [place] - 11/30/2020 3:18 PM EST [facility] CMR Report Name: AYLEEN MILLAN V : 1940 Scan Date: 2020-11-30 07:58:05 Electronically signed by Melanie Burciaga 15:18:16 VITALS ===== HEIGHT: 70.00 in (177.80 cm) WEIGHT: 201.00 lbs (91.17 kgs) BSA: 2.09 m FINAL IMPRESSION ===== Impression LV morphology with asymmetric septal wall hypertrophy with maximal thickness of 2cm with mild chordal RAMÍREZ without significant LVOT obstruction and very mild mid wall hyperenhancement in the inferior septal wall c/w hypertrophic cardiomyopathy. SUMMARY ===== 79 yo with hx of HCM, cardiac MRI for assessment of cardiac morphology and myocardial scar. 1. Normal LV size with increased septal wall thickness with maximal thickness of 2cm. Quantitative LVEF 76 %. Mild mid myocardial scar in the basal and mid inferior septal wall. 2. Normal RV size and systolic function 3. No hemodynamically significant valvular disease, mild chordal RAMÍREZ noted. LVOT velocity less than 2m/s 4. Normal T1 mapping. LEFT VENTRICLE: Normal LV size with increased septal wall thickness with maximal thickness of 2cm. Normal wall motion, Quantitative LVEF 76 %. Mild mid myocardial scar in the basal and mid inferior septal wall. VIABILITY: LV scar size is 2 %. RIGHT VENTRICLE: Quantitative RVEF 55 %. RV wall thickness is normal. RV cavity size is normal. RV systolic function is normal. LV/RV SEPTUM: The LV/RV septum is normal. LA/RA SEPTUM: The LA/RA septum is normal. LEFT ATRIUM: LA cavity size is normal. RIGHT ATRIUM: RA cavity size is normal. PERICARDIUM: Pericardium is normal. PLEURAL EFFUSION: There is no pleural effusion. AORTIC VALVE: Peak aortic valve velocity 150 cm/sec. Aortic regurgitant volume 0.66 ml. Aortic regurgitant fraction 1 %. Aortic valve leaflets are normal. There is trivial aortic regurgitation. There is no aortic stenosis. MITRAL VALVE: Mitral valve leaflets are normal. No regurgitation. Mild chordal RAMÍREZ TRICUSPID VALVE: Tricuspid valve leaflets are normal. There is no tricuspid regurgitation. There is no tricuspid stenosis. PULMONIC VALVE: Pulmonic valve leaflets are normal. There is no pulmonic regurgitation. There is no pulmonic stenosis. AORTIC ROOT: The aortic root is normal. AAo measures 2.7cm and Rodrick measures 2.1cm at the PA bifurcation. Aortic sinuses measure 3.5cm. CORE EXAM ===== MEASUREMENTS VOLUMETRIC ANALYSIS . --. LV Reference RV Reference +------+ +-----+- +-----+--------- --+ EDV ml 93 123 ml/m 44 59 ESV ml 22 55 ml/m 11 26 CO L/min L/min/m MASS g 121 g/m 58 SV ml 71 68 ml/m 34 33 EF % 76 55 '------+ +-----+- +-----+--------- --' LV DIMENSIONS WALL THICKNESS - ANTEROSEPTAL: 2.0 cm WALL THICKNESS - INFEROLATERAL: 0.9 cm WALL THICKNESS - MAXIMUM: 2.0 cm LV ROHIT: 4.8 cm LV ESD: 2.7 cm LA DIMENSIONS (LV SYSTOLE) AREA - 4 CHAMBER: 16 cm RA DIMENSIONS (RV SYSTOLE) AREA - 4 CHAMBER: 12 cm AORTIC ROOT DIMENSIONS SINUS OF VALSALVA: 3.5 cm EXTRACELLULAR VOLUME MEASUREMENT PRE-CONTRAST T1 MYOCARDIUM: 1033 msec PRE-CONTRAST T1 LV CAVITY: 1565 msec POST-CONTRAST T1 MYOCARDIUM: 432 msec POST-CONTRAST T1 LV CAVITY: 280 msec HEMATOCRIT: 46 % HEMATOCRIT DATE: 2020-07-13 00:00:00 ECV: 25 % 17 SEGMENT . . Segments Wall Motion Hyperenhancement Stress Perfusion Interpretation + +---- + ---+ + + Base Anterior Normal/Hyper None Base Anteroseptal Normal/Hyper None Base Inferoseptal Normal/Hyper 1-25% Base Inferior Normal/Hyper None Base Inferolateral Normal/Hyper None Base Anterolateral Normal/Hyper None Mid Anterior Normal/Hyper None Mid Anteroseptal Normal/Hyper None Mid Inferoseptal Normal/Hyper 1-25% Mid Inferior Normal/Hyper None Mid Inferolateral Normal/Hyper None Mid Anterolateral Normal/Hyper None Apical Anterior Normal/Hyper None Apical Septal Normal/Hyper None Apical Inferior Normal/Hyper None Apical Lateral Normal/Hyper None [place] Normal/Hyper None + +---- + ---+ + + RV Segments Wall Motion Hyperenhancement Stress Perfusion Interpretation + +---- + ---+ + + RV Basal Anterior Normal/Hyper RV Basal Inferior Normal/Hyper RV Mid Normal/Hyper RV Apical Normal/Hyper ' +---- + ---+ + ' FINDINGS SCAR SIZE: 2 % SCAN INFO ===== GENERAL SCANNER BODY WORK AUTO TRIMMER: SIEMENS MODEL: Aera PULSE SEQUENCES: SSFP cine, GRE cine, Black-blood LGE (or Beebe-blood), T1-weighted imaging, T2-weighted imaging, Pre-contrast T1 mapping, Post-contrast T1 mapping, T2 mapping, T2* mapping, First-pass perfusion without stress, Phase contrast imaging, Fat-water imaging CONTRAST AGENT TYPE: Dotarem LOT NUMBER: [id number] EXPIRATION DATE: 2025-05-23 00:00:00 GD CONCENTRATION: 0.5 M VOLUME ADMINISTERED: 36 ml DOSAGE: 0.20 mmol/kg SERUM CREATININE: 0.9 mg/dL GFR: 86.30 ml/min/1.73m CREATININE DATE: 2020-11-30 00:00:00 SEDATION SEDATION USED?: No SETUP SCAN TYPE: Clinical PATIENT TYPE: Outpatient INCOMPLETE SCAN: No REASON(S) FOR SCAN: HCM (known/suspect) REFERRING PHYSICIAN: MELANIE BURCIAGA ATTENDING PHYSICIAN: MELANIE BURCIAGA TECHNOLOGIST: Rosenda Hawley BILLING ===== CPT Codes 58386, 19469 Report generated by [employer], a product of [employer] [facility] POC Creatinineon 11-30-2020 Creatinine [Mass/Vol] 0.9 mg/dL 0.8 - 1.3 mg/dL [facility] Interpretation and review of laboratory results Normal [facility] ECG 12-LEADon 10-11-2020 Atrial Rate [facility] P [place] [facility] P-R Interval [facility] Q-T Interval [facility] Q-T Interval (corrected) [facility] QRS Duration [facility] QTC Calculation (Bezet) [facility] R [place] [facility] [facility] [place] [facility] Ventricular Rate [facility] ECG 12-LEADon 09-06-2019 Atrial Rate [facility] [place] [facility] P-R Interval [facility] Q-T Interval [facility] Q-T Interval (corrected) [facility] QRS Duration [facility] QTC Calculation (Bezet) [facility] [place] [facility] [place] [facility] Ventricular Rate [facility] HOLTER MONITon 08-26-2018 HOLTER MONIT This is a summary re port. The complete report is available in the patient's medical record. If you cannot access the medical record, please contact the sending organization for a detailed fax or copy.Holter monitor tracings reviewed.Sinus mechanism with average heart rate 70 bpm is noted. The heart rates range between 48-104 bpm. Rare PACs incidentally noted. Significant artifact is also seen on some of the tracings. One isolated PVC seen during the monitoring time. Otherwise no sustained atrial or ventricular arrhythmias seen.No symptoms reported.Clinical correlation is advised.Monitor returned and downloaded 08/24/2018Report printed[facility] 08/26/2018 [facility] ECG 12 Leadon 08-19-2018 Atrial Rate Invalid Interpretation Code [facility] [place] Invalid Interpretation Code [facility] P-R Interval Invalid Interpretation Code [facility] Q-T Interval Invalid Interpretation Code [facility] Q-T Interval (corrected) Invalid Interpretation Code [facility] QRS Duration Invalid Interpretation Code [facility] QTC Calculation (Bezet) Invalid Interpretation Code [facility] R [place] Invalid Interpretation Code [facility] T [place] Invalid Interpretation Code [facility] Ventricular Rate Invalid Interpretation Code [facility] STRESS ECHO W/ECHO COMPLETE AND COLOR FLOWon 08-19-2018 STRESS ECHO W/ECHO COMPLETE AND COLOR FLOW Stress Echocardiogram Patient: MONTY ABBASI V [facility] Rec#: [id number] (Age): 1940(77y) Height: 177.8(cm)/69(inStudy Date: 08/19/2018 Weight: 101.15(kg)/223(Room#: BSA: 2.19 Type: Outpatient Loc: Sex: M Reading : Placido Le MD Referring: Alonso Wheat MD, [facility] CenterShelby scherer [place] Meringuer: Jefferson Ramos RUST Supervising - Placido Le MD History: Hyperlipidemia Hypertension. Other. HypertrophicCardiomyopathy RBBB. Diagnosis: ICD-10-PCS Cardiomyopathy, unspecified (I42.9) CPT Code(s): DOP ECHO COLOR CARLOS JAIRO MAPG (05750) DOP ECHO COMPL(01900) Stress Echo w/ cont. EKG monitoring (52686) Study Quality The study quality is good. Summary: The study was technically adequate. Limited viewswere obtained. There is no comparison study available. Conclusions: Normal but submaximal stress echo with no definite evidence for priorinfarction or stress-induced ischemia. Mildly reduced exercise capacity for age. Mild concentric left ventricular hypertrophy is observed, withadditional basal septal hypertrophy. No outflow gradient evident at rest(gradient not assessed after exercise). Compared to prior report from 10/13/2016, no interval change.The patient achieved a maximum heart rate of 111. Findings RestMedication:Other Atenolol took 08/18 PM, lovastatin, methylprednisolone, omeprazole,quinapril, tamsulosin Reason For Study:Other. Hypertrophic Cardiomyopathy, lightheadedness Left Ventricle:The left ventricular chamber size is normal. Mild concentric leftventricular hypertrophy is observed. Basal septal hypertrophy isobserved. Global left ventricular wall motion and contractility arewithin normal limits. There is normal left ventricular systolicfunction. The estimated ejection fraction is 55-60%. Left Atrium:The left atrial chamber size is normal. Right Ventricle:The right ventricular chamber size and systolic function are withinnormal limits. Right Atrium:The right atrial cavity size is normal. Aortic Valve:The aortic valve is trileaflet. There is no hemodynamically significantstenosis. There is no evidence of aortic regurgitation. Mitral Valve:The mitral valve leaflets appear normal. There is no evidence of mitralvalve prolapse. There is a trace of mitral regurgitation. Tricuspid Valve:The tricuspid valve leaflets are normal. There is a trace tricuspidregurgitation. Pulmonary artery pressure could not be estimated. Pulmonic Valve:The pulmonic valve appears normal. There is a trace pulmonicregurgitation. Pericardium:There is no pericardial effusion. Aorta:The aortic root is normal in diameter. Stress:Patient EKG is consistent with left anterior fascicular block. PatientEKG is consistent with a right bundle branch block. Patient's EKG isconsistent with sinus bradycardia. Findings PeakLeft Ventricle:The left ventricle appears hyperdynamic. The estimated ejectionfraction is greater than 65%. No high grade regional wall motionabnormalities were detected. Stress:Patient followed a Martin protocol. The target heart rate is 120 bpm. Patient achieved 78% of their maximum predicted heart rate. submaximalexercise treadmill test The patient exercised into stage 2. totalexercise duration 5 minutes 26 seconds The study was terminated becauseof fatigue. The patient did not express feelings of chest discomfort. Hypertensive resting blood pressure. Blood pressure response toexercise was appropriate. Exercise capacity is fair. The patientachieved a level of 7 METS. There were no arrhythmias. There is no STsegment depression. Non-diagnostic stress ECG. due to failure to reachtarget HR Patient's EKG is consistent with sinus tachycardia. withoutischemic EKG changes Stage HR BPRest 56 150/84 Peak 111 168/70 Recovery 76 148/70 Measurements at RestChambers 2DName Value Normal Range IVSd (2D) 1.28 cm noneLVPWd (2D) 1.25 cm noneIVS:LVPW ratio (2D) 1.02 ratio noneLVIDd (2D) 5.04 cm noneLVIDs (2D) 2.84 cm noneLV FS (Teichholz) (2D) 43.7 % noneLV FS (cube) (2D) 43.7 % noneEF Teichholz (2D) 74.5 % noneAo root diameter (2D) 3.1 cm noneLA dimension (AP) 2D 3.1 cm noneLA:Ao ratio (2D) 1 ratio noneVolumes/MassName Value Normal Range LA ESV SP 4CH (MOD) 109 ml noneLA ESV SP 2CH (MOD) 82.9 ml noneLA ESV BP (MOD) 96.9 ml noneLA ESV BP (MOD) index 44.2 ml/m2 noneDiastolic/Systolic FunctionName Value Normal Range MV E-wave Vmax 0.91 m/sec noneMV deceleration time 216 msec noneMV A-wave Vmax 0.89 m/sec noneMV E:A ratio 1 ratio (1.1 - 1.5)LV E:e' septal ratio 15.8 ratio noneLV E:e' lateral ratio 12.1 ratio noneAortic ValveName Value Normal Range AV Vmax 1.54 m/sec (1 - 1.7)AV VTI 42.1 cm noneAV peak gradient 9 mmHg (Less Than 36)AV mean gradient 6 mmHg (Less Than 20)LVOT diameter 2.4 cm (1.7 - 2.5)LVOT Vmax 0.86 m/sec (0.7 - 1.1)LVOT VTI 27.4 cm noneLVOT peak gradient 3 mmHg noneLVOT mean gradient 2 mmHg noneSV LVOT 124 ml noneAVA (continuity Vmax) 2.52 cm2 noneAVA (continuity VTI) 2.94 cm2 noneMitral ValveName Value Normal Range MV PHT 71 msec noneMVA (PHT) 3.1 cm2 noneElectronically Signed at 08/19/2018 14:42:59 by: JESSICA [facility] Office Visit (LAZARO) MONTYAYLEEN LEDBETTER V ([id number]) 1940 MDate Time Provider Department04/28/18 1:30 PM LOPEZ GAUTAM During your visit today, we recorded the following information about you: Weight Height 98.9 kg 1.778 Carlos Alberto Gautam DO, MBA, DO 04/28/2018 4:08 PM SignedCYSTOSCOPY PROCEDURE NOTE:Ayleen Millan is a 77 year old male who presents with hematuria gross forcystoscopy.Pt ID verified with patient: YesProcedure verified with patient: YesProcedure confirmed with physician and network support technician: YesSign InHistory and Physical Exam reviewed and is unchanged. .Informed Consent Discussed: Yes. Risks, benefits, alternatives and personneldiscussed with patient who consents to proceed.Sign in Communication: CompletedTime Out: Team Confirms the Correct Patient, Correct Procedure; Cystoscopy,Correct Site and Site Marking, Correct Position (if applicable).Affirmation of Time Out: YesSign Out: Sign Out Discussion: CompletedPhysician: Lopez Gautam DO, MBAA urinalysis was performed revealing no evidence of infection.The benefits, risks, alternatives of the cystoscopy procedure and personnelwere discussed with the patient. The verbal consent was obtained and thepatient agrees to proceed.Procedure: The patient was placed on the procedure table in the supine positionand prepped and draped in the usual sterile fashion. 2% Lidocaine Jelly wasplaced per urethra as an anesthetic in the standard fashion. Once adequatelocal anesthesia was achieved, the tip of the flexible cystoscope was carefullyplaced into the urethra under direct visual guidance. The scope was negotiatedthrough the pendulous urethra to the level of the bulbar urethra with noevidence of stricture. The verumontanum came into view and the scope wasnegotiated through the prostatic urethra which showed evidence of bi lobarocclusive disease. The bladder was entered and careful oscar endoscopy wascarried out. The posterior, superior and lateral alvarez and dome of the bladderwere all well visualized and the scope was retroflexed upon itself. Thefindings were consistent with no evidence of bladder mucosal pathology.At the conclusion of the procedure, the flexible cystoscope was removedatraumatically. The patient tolerated the procedure without complications.Patient was given standard post-procedure instructions, and was directed tocomplete the course of oral antibiotics and increase oral fluid intake asdirected.ASSESSMENT/PLAN :77 yr old man with hx of gross hematuria, prostate cancer treated withradiation therapy in 2014- negative cystoscopy for evidence of mucosal pathology, + BPH- Negative CT urogram, cytology - to follow up for urinalysis in 6 mo in [place]- Renal cysts stable - plan to follow with Javy Byrne5Attending NoteI evaluated the patient and personally participated in the huang components. Iagree with the resident's findings and plan as documented and have discussedthe case and management of the patient's care with the resident.Signature: Lopez Gautam DO, MBADate: 04/28/2018Time: 4:06 PMReferring Provider: SHELLY OLIVEROS (HENRI) [[id number]]Allergies As of Date: 04/28/2018 Noted Allergy ReactionTRAMADOL 08/29/2011 9 - ItchingLIPITOR (ATORVASTATIN CALCIUM) 06/23/2006 5 - Intolerance Comments: leg crampsSTATINS (RDJKOSC-RBA-YWY REDUCTAS*02/07/2008 5 - Intolerance Comments: leg cramping with most statinsVICODIN (HYDROCODONE-ACETAMINOPHE* 11/04/2013 8 - GI UpsetVYTORIN 09/01 (EZETIMIBE-SIMVASTA*2005 5 - Intolerance Comments: leg crampingDate Reviewed: 04/28/2018Reviewed by: Lopez Gautam DO - Fully AssessedReason for Visit: Procedure [88]Primary Visit Diagnosis:Frequency of urination [R35.0] Other Visit Diagnosis:Gross hematuria [R31.0]Order(s):UA DIP B/O [[id number]] Order #: [id number] ciprofloxacin HCl 500 mg tab(s) (CIPRO)Disp: Rfl:Prescriptions as of 04/28/2018 Sig: ASPIRIN 81 MG TABLET,DELAYED * Take 81 mg by mouth once melida* IV CONTRAST (RADIOLOGY PROCED* CT Urogram WO/W Inject, intra* TAMSULOSIN 0.4 MG CAPSULE Take 1 capsule by mouth once * OMEPRAZOLE 40 MG CAPSULE,JARED* Take 1 capsule by mouth twice* LOVASTATIN 40 MG TABLET TAKE TWO TABLETS BY MOUTH ONC* ATENOLOL 50 MG TABLET Take 1 tablet by mouth twice * CALCIUM CARBONATE 600 MG (1,5* Take 1 tablet by mouth twice * QUINAPRIL 40 MG TABLET Take one(1) tablet daily.PER * CENTRUM SILVER TABLETProblem List As Of Date 04/28/2018 Noted Resolved GENERAL OSTEOARTHROSIS [M15.9] ALLERGIC RHINITIS NOS [J30.9] INT HEMORRHOID W/O COMPL [K64.8] 06/23/2006 DIVERTICULOSIS OF COLON W/O BLEED [K57.30] 06/23/2006 ESOPHAGEAL REFLUX [K21.9] Bundle branch block, unspecified [I45.4] 09/07/2014 Hyperlipemia [E78.5] BENIGN HYPERTENSION [I10] Hypertrophic cardiomyopathy (HCC) [I42.2] INVALID FOR* More... DISC DIS NEC/NOS-CERV [M50.90] INVALID FOR* Benign prostatic hyperplasia without lower urin*INVALID FOR* Hypoglycemia, unspecified [E16.2] INVALID FOR*08/29/2011 Neoplasm of Uncertain Behavior of Skin [D48.5] INVALID FOR*08/20/2009 Inflamed Seborrheic Keratosis [L82.0] INVALID FOR*08/20/2009 Viral Warts, Unspecified [B07.9] INVALID FOR*08/20/2009 NEUROFIBROMA////BENIGN AYE SKIN TRUNK [D23.5] INVALID FOR*09/02/2012 SEBORRHEIC KERATOSES NOS [L82.1] INVALID FOR* SOLAR LENGINES///DYSCHROMIA OTHER [L81.9] INVALID FOR*08/20/2009 Benign Neoplasm of Scalp and Skin of Neck [D23.*INVALID FOR*08/20/2009 HEMORRHOIDS INTERNAL BLEEDING [K64.8] INVALID FOR*08/20/2009 Lumbago [M54.5] INVALID FOR* Other physical therapy [ONF8469] INVALID FOR*08/29/2011 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 Impaired fasting glucose [R73.01] INVALID FOR* Atypical Melanocytic Compound and Junctional Ne*INVALID FOR*09/02/2012 Actinic Keratosis (Premalignant AK) [L57.0] INVALID FOR*08/30/2015 Irritated//Inflamed Seborrheic Keratoses (poten*INVALID FOR*09/02/2012 Cutaneous skin tags [L91.8] INVALID FOR*09/02/2012 Actinic skin damage [L57.8] INVALID FOR*09/02/2012 Solar Lentigines [L81.4] INVALID FOR*09/07/2014 Wilson angiomas [D18.01] INVALID FOR*09/02/2012 Viral warts, unspecified [B07.9] INVALID FOR*09/02/2012 Melanocytic nevi of trunk [D22.5] INVALID FOR*08/30/2015 Surgical Scars [L90.5] INVALID FOR*09/02/2012 Testalgia [N50.819] INVALID FOR*09/07/2014 Frequency of urination [R35.0] INVALID FOR* Xerosis cutis [L85.3] INVALID FOR*09/07/2014 Keratosis pilaris [L85.8] INVALID FOR*09/07/2014 Irritant dermatitis [L24.9] INVALID FOR*09/07/2014 Renal cyst [N28.1] INVALID FOR* Hearing loss in right ear [H91.91] INVALID FOR* Prostate cancer (HCC) [C61] INVALID FOR* Carotid disease, bilateral (HCC) [I77.9] INVALID FOR*Prescriptions ordered this encounter Disp Refills Start End CIPROFLOXACIN 500 MG TABLET 04/28/2018 04/29/2018 Route: ORALDisposition: Return if symptoms worsen or fail to improve.Follow-up and Disposition History RecordedLetter TextEncounter Number: [id number] Status:Closed by LOPEZ GAUTAM DO, MBA on 04/28/18 [facility] PROCEDUREon 04-28-2018 PROCEDURE HNO ID: [id number] thor: Bhavin Martinrvice: (none)Author Type: PhysicianType: ProceduresFiled: 04/28/2018 4:08 PMNote Text:CYSTOSCOPY PROCEDURE NOTE:Ayleen Millan is a 77 year old male who presents with hematuria grossfor cystoscopy.Pt ID verified with patient: YesProcedure verified with patient: YesProcedure confirmed with physician and network support technician: YesSign InHistory and Physical Exam reviewed and is unchanged. .Informed Consent Discussed: Yes. Risks, benefits, alternatives andpersonnel discussed with patient who consents to proceed.Sign in Communication: CompletedTime Out: Team Confirms the Correct Patient, Correct Procedure;Cystoscopy, Correct Site and Site Marking, Correct Position (ifapplicable).Affirmation of Time Out: YesSign Out: Sign Out Discussion: CompletedPhysician: Lopez Gautam DO, MBAA urinalysis was performed revealing no evidence of infection.The benefits, risks, alternatives of the cystoscopy procedure andpersonnel were discussed with the patient. The verbal consent was obtainedand the patient agrees to proceed.Procedure: The patient was placed on the procedure table in the supineposition and prepped and draped in the usual sterile fashion. 2% LidocaineJelly was placed per urethra as an anesthetic in the standard fashion.Once adequate local anesthesia was achieved, the tip of the flexiblecystoscope was carefully placed into the urethra under direct visualguidance. The scope was negotiated through the pendulous urethra to thelevel of the bulbar urethra with no evidence of stricture. Theverumontanum came into view and the scope was negotiated through theprostatic urethra which showed evidence of bi lobar occlusive disease. Thebladder was entered and careful oscar endoscopy was carried out. Theposterior, superior and lateral alvarez and dome of the bladder were allwell visualized and the scope was retroflexed upon itself. The findingswere consistent with no evidence of bladder mucosal pathology.At the conclusion of the procedure, the flexible cystoscope was removedatraumatically. The patient tolerated the procedure without complications.Patient was given standard post-procedure instructions, and was directedto complete the course of oral antibiotics and increase oral fluid intakeas directed.ASSESSMENT/PLAN:[age] yr old man with hx of gross hematuria, prostate cancer treated withradiation therapy in 2014- negative cystoscopy for evidence of mucosal pathology, + BPH- Negative CT urogram, cytology - [place]- Renal cysts stable - plan to follow with Javy Byrne5Attending NoteI evaluated the patient and personally participated in the huang components. I agree with the resident's findings and plan as documented and havediscussed the case and management of the patient's care with the resident.Signature: Lopez Gautam DO, MBADate: 04/28/2018Time: 4:06 PM Normal [facility] Office Visit: Post Op Martine arroyo 09-04-2017 Documentation of current medications (procedure) Done Invalid Interpretation Code [facility] [employer] Work Phone: Fall risk assessment No Invalid Interpretation Code [facility] [employer] Work Phone: Tobacco smoking status NHIS Never Invalid Interpretation Code [facility] [employer] Work Phone: Tobacco use CPHS Never smoker Invalid Interpretation Code [facility] Work Phone: ECG 12 Leadon 08-20-2017 Atrial Rate Invalid Interpretation Code [facility] Work Phone: [place] Invalid Interpretation Code [facility] Work Phone: P-R Interval Invalid Interpretation Code [facility] Work Phone: Q-T Interval Invalid Interpretation Code [facility] Work Phone: Q-T Interval (corrected) Invalid Interpretation Code [facility] Work Phone: QRS Duration Invalid Interpretation Code [facility] Work Phone: QTC Calculation (Bezet) Invalid Interpretation Code [facility] Work Phone: R [place] Invalid Interpretation Code [facility] Work Phone: T [place] Invalid Interpretation Code [facility] Work Phone: Ventricular Rate Invalid Interpretation Code [facility] Work Phone: Office Visit: rectal bleedin eleno 09-15-2008 Colonoscopy (procedure) Colonoscopy (procedure) Invalid Interpretation Code [facility] [place] Work Phone: Vital Signs Date Time Vital Sign Value Performing Clinician Margarita mahoney 06-09-2025 13:51-0400 Body mass index (BMI) [Ratio] 32.15 kg/m2 Shelby Click TRANSPORTATION SECURITY OFFICER[employer] Work Phone: [facility] 06-09-2025 13:51-0400 Body weight 96.62 kg Shelby Click TRANSPORTATION SECURITY OFFICER[employer] Work Phone: [facility] 06-09-2025 13:51-0400 Diastolic blood pressure 62 mm[Hg] Shelby Click TRANSPORTATION SECURITY OFFICER.[employer] Work Phone: [facility] 06-09-2025 13:51-0400 Heart rate 63 /min Shelby Click TRANSPORTATION SECURITY OFFICER.[employer] Work Phone: [facility] 06-09-2025 13:51-0400 Respiratory rate 17 /min Shelby Click TRANSPORTATION SECURITY OFFICER.[employer] Work Phone: [facility] 06-09-2025 13:51-0400 SaO2% (BldA) [Mass fraction] 95 % Shelby Click TRANSPORTATION SECURITY OFFICER.[employer] Work Phone: [facility] 06-09-2025 13:51-0400 Systolic blood pressure 120 mm[Hg] Shelby Click TRANSPORTATION SECURITY OFFICER.[employer] Work Phone: [facility] 06-05-2025 11:39-0400 Body mass index (BMI) [Ratio] 31.31 kg/m2 Melanie Burciaga MD Work Phone: [facility] 06-05-2025 11:39-0400 Body weight 96.16 kg Melanie Burciaga MD Work Phone: [facility] 06-05-2025 11:39-0400 Diastolic blood pressure 71 mm[Hg] Melanie Burciaga MD Work Phone: [facility] 06-05-2025 11:39-0400 Heart rate 59 /min Melanie Burciaga MD Work Phone: [facility] 06-05-2025 11:39-0400 SaO2% (BldA) [Mass fraction] 95 % Melanie Burciaga MD Work Phone: [facility] 06-05-2025 11:39-0400 Systolic blood pressure 149 mm[Hg] Melanie Burciaga MD Work Phone: [facility] 03-21-2025 10:16-0400 Body mass index (BMI) [Ratio] 31.18 kg/m2 Alonso Wheat MD Work Phone: [facility] 03-21-2025 10:16-0400 Body weight 93.7 kg Alonso Wheat MD Work Phone: [facility] 03-21-2025 10:16-0400 Diastolic blood pressure 62 mm[Hg] Alonso Wheat MD Work Phone: [facility] 03-21-2025 10:16-0400 Heart rate 64 /min Alonso Wheat MD Work Phone: [facility] 03-21-2025 10:16-0400 Respiratory rate 24 /min Alonso Wheat MD Work Phone: [facility] 03-21-2025 10:16-0400 Systolic blood pressure 126 mm[Hg] Alonso Wheat MD Work Phone: [facility] 11-17-2024 13:05-0500 Body mass index (BMI) [Ratio] 31.88 kg/m2 Svetlana Jaeger MD Work Phone: [facility] 11-17-2024 13:05-0500 Body weight 95.8 kg Svetlana Jaeger MD Work Phone: [facility] 11-17-2024 13:05-0500 Diastolic blood pressure 66 mm[Hg] Svetlana Jaeger MD Work Phone: [facility] 11-17-2024 13:05-0500 Heart rate 58 /min Svetlana Jaeger MD Work Phone: [facility] 11-17-2024 13:05-0500 SaO2% (BldA) [Mass fraction] 100 % Svetlana Jaeger MD Work Phone: [facility] 11-17-2024 13:05-0500 Systolic blood pressure 130 mm[Hg] Svetlana Jaeger MD Work Phone: [facility] 10-28-2024 11:13-0500 Body height 175.3 cm Anu Briggs [employer] Work Phone: [facility] 10-28-2024 11:13-0500 Body mass index (BMI) [Ratio] 30.85 kg/m2 Anu Briggs [employer] Work Phone: [facility] 10-28-2024 11:13-0500 Body weight 94.76 kg Anu Briggs [employer] Work Phone: [facility] 10-28-2024 11:13-0500 Diastolic blood pressure 71 mm[Hg] Anu Briggs [employer] Work Phone: [facility] 10-28-2024 11:13-0500 Heart rate 55 /min Anu Briggs [employer] Work Phone: [facility] 10-28-2024 11:13-0500 SaO2% (BldA) [Mass fraction] 96 % Anu Briggs [employer] Work Phone: [facility] 10-28-2024 11:13-0500 Systolic blood pressure 128 mm[Hg] Anu Briggs [employer] Work Phone: [facility] 10-24-2024 11:48-0500 Body height 173.4 cm Pulm Wstr Work Phone: [facility] 10-24-2024 11:48-0500 Body mass index (BMI) [Ratio] 32.15 kg/m2 Pulm Wstr Work Phone: [facility] 10-24-2024 11:48-0500 Body weight 96.62 kg Pulm Wstr Work Phone: [facility] 10-24-2024 11:48-0500 Heart rate 57 /min Pulm Wstr Work Phone: [facility] 10-24-2024 11:48-0500 Respiratory rate 14 /min Pulm Wstr Work Phone: [facility] 10-24-2024 11:48-0500 SaO2% (BldA) [Mass fraction] 98 % Pulm Wstr Work Phone: [facility] 09-21-2024 10:55-0400 Diastolic blood pressure 71 mm[Hg] Alonso Wheat MD Work Phone: [facility] 09-21-2024 10:55-0400 Heart rate 61 /min Alonso Wheat MD Work Phone: [facility] 09-21-2024 10:55-0400 Systolic blood pressure 121 mm[Hg] Alonso Wheat MD Work Phone: [facility] 09-21-2024 10:44-0400 Body height 174.2 cm Alonso Wheat MD Work Phone: [facility] 09-21-2024 10:44-0400 Body mass index (BMI) [Ratio] 31.82 kg/m2 Alonso Wheat MD Work Phone: [facility] 09-21-2024 10:44-0400 Body temperature 97.11 [degF] Alonso Wheat MD Work Phone: [facility] 09-21-2024 10:44-0400 Body weight 96.6 kg Alonso Wheat MD Work Phone: [facility] 09-21-2024 10:44-0400 Respiratory rate 20 /min Alonso Wheat MD Work Phone: [facility] 08-23-2024 11:02-0400 Body mass index (BMI) [Ratio] 31.65 kg/m2 Alonso Wheat MD Work Phone: [facility] 08-23-2024 11:02-0400 Body temperature 97.39 [degF] Alonso Wheat MD Work Phone: [facility] 08-23-2024 11:02-0400 Body weight 95.1 kg Alonso Wheat MD Work Phone: [facility] 08-23-2024 11:02-0400 Diastolic blood pressure 64 mm[Hg] Alonso Wheat MD Work Phone: [facility] 08-23-2024 11:02-0400 Heart rate 57 /min Alonso Wheat MD Work Phone: [facility] 08-23-2024 11:02-0400 Systolic blood pressure 124 mm[Hg] Alonso Wheat MD Work Phone: [facility] 04-21-2024 15:14-0400 Body mass index (BMI) [Ratio] 32.45 kg/m2 Svetlana Jaeger MD Work Phone: [facility] 04-21-2024 15:14-0400 Body weight 97.52 kg Svetlana Jaeger MD Work Phone: [facility] 03-18-2024 09:59-0400 Body mass index (BMI) [Ratio] 32.45 kg/m2 Romelia Brian TRANSPORTATION SECURITY OFFICER.[employer] Work Phone: [facility] 03-18-2024 09:59-0400 Body weight 97.52 kg Romelia Brian TRANSPORTATION SECURITY OFFICER.[employer] Work Phone: [facility] 03-18-2024 09:59-0400 Diastolic blood pressure 68 mm[Hg] Romelia Brian TRANSPORTATION SECURITY OFFICER.[employer] Work Phone: [facility] 03-18-2024 09:59-0400 Heart rate 57 /min Romelia Brian TRANSPORTATION SECURITY OFFICER.[employer] Work Phone: [facility] 03-18-2024 09:59-0400 Respiratory rate 16 /min Romelia Brian TRANSPORTATION SECURITY OFFICER.[employer]ER Work Phone: [facility] 03-18-2024 09:59-0400 SaO2% (BldA) [Mass fraction] 96 % Romelia HoganBrian TRANSPORTATION SECURITY OFFICER.[employer]ER Work Phone: [facility] 03-18-2024 09:59-0400 Systolic blood pressure 132 mm[Hg] Romelia Brian TRANSPORTATION SECURITY OFFICER.[employer]ER Work Phone: [facility] 02-11-2024 14:41-0400 Diastolic blood pressure 59 mm[Hg] Melanie Burciaga MD Work Phone: [facility] 02-11-2024 14:41-0400 Systolic blood pressure 132 mm[Hg] Melanie Burciaga MD Work Phone: [facility] 02-11-2024 14:36-0400 Body mass index (BMI) [Ratio] 31.75 kg/m2 Melanie Burciaga MD Work Phone: [facility] 02-11-2024 14:36-0400 Body weight 97.52 kg Melanie Burciaga MD Work Phone: [facility] 02-11-2024 14:36-0400 Heart rate 64 /min Melanie Burciaga MD Work Phone: [facility] 02-11-2024 14:36-0400 SaO2% (BldA) [Mass fraction] 96 % Melanie Burciaga MD Work Phone: [facility] 10-05-2023 11:36-0500 Body weight 96.16 kg Svetlana Jaeger MD Work Phone: [facility] 10-05-2023 11:36-0500 Diastolic blood pressure 62 mm[Hg] Svetlana Jaeger MD Work Phone: [facility] 10-05-2023 11:36-0500 Heart rate 57 /min Svetlana Jaeger MD Work Phone: [facility] 10-05-2023 11:36-0500 Respiratory rate 17 /min Svetlana Jaeger MD Work Phone: [facility] 10-05-2023 11:36-0500 SaO2% (BldA) [Mass fraction] 96 % Svetlana Jaeger MD Work Phone: [facility] 10-05-2023 11:36-0500 Systolic blood pressure 124 mm[Hg] Svetlana Jaeger MD Work Phone: [facility] 09-25-2023 13:17-0400 Body height 173.4 cm Pulm Wstr Work Phone: [facility] 09-25-2023 13:17-0400 Body weight 96.16 kg Pulm Wstr Work Phone: [facility] 08-05-2023 11:07-0400 Body height 175.3 cm Melanie Burciaga MD Work Phone: [facility] 08-05-2023 11:07-0400 Body mass index (BMI) [Ratio] 32.05 kg/m2 Melanie Burciaga MD Work Phone: [facility] 08-05-2023 11:07-0400 Body weight 98.43 kg Melanie Burciaga MD Work Phone: [facility] 08-05-2023 11:07-0400 Diastolic blood pressure 68 mm[Hg] Melanie Burciaga MD Work Phone: [facility] 08-05-2023 11:07-0400 Heart rate 57 /min Melanie Burciaga MD Work Phone: [facility] 08-05-2023 11:07-0400 SaO2% (BldA) [Mass fraction] 95 % Melanie Burciaga MD Work Phone: [facility] 08-05-2023 11:07-0400 Systolic blood pressure 117 mm[Hg] Melanie Burciaga MD Work Phone: [facility] 04-01-2023 10:30-0400 Body weight 97.52 kg Melanie Femi PA-C Work Phone: [facility] 04-01-2023 10:30-0400 Diastolic blood pressure 82 mm[Hg] Melanie Femi PA-C Work Phone: [facility] 04-01-2023 10:30-0400 Heart rate 60 /min Melanie Femi PA-C Work Phone: [facility] 04-01-2023 10:30-0400 Respiratory rate 15 /min Melanie Femi PA-C Work Phone: [facility] 04-01-2023 10:30-0400 SaO2% (BldA) [Mass fraction] 95 % Melanie Efmi PA-C Work Phone: [facility] 04-01-2023 10:30-0400 Systolic blood pressure 126 mm[Hg] Melanie Femi PA-C Work Phone: [facility] 03-11-2023 11:12-0400 Body weight 97.07 kg Alonso Wheat MD Work Phone: [facility] 03-11-2023 11:12-0400 Diastolic blood pressure 60 mm[Hg] Alonso Wheat MD Work Phone: [facility] 03-11-2023 11:12-0400 Heart rate 56 /min Alonso Wheat MD Work Phone: [facility] 03-11-2023 11:12-0400 Respiratory rate 16 /min Alonso Wheat MD Work Phone: [facility] 03-11-2023 11:12-0400 Systolic blood pressure 120 mm[Hg] Alonso Wheat MD Work Phone: [facility] 01-29-2023 10:20-0500 Body height 175.3 cm Yamel Chang CNP Work Phone: [facility] 01-29-2023 10:20-0500 Body mass index (BMI) [Ratio] 31.51 kg/m2 Yamel Chang CNP Work Phone: [facility] 01-29-2023 10:20-0500 Body weight 96.8 kg Yamel Chang CNP Work Phone: [facility] 01-29-2023 10:20-0500 Diastolic blood pressure 78 mm[Hg] Yamel Chang CNP Work Phone: [facility] 01-29-2023 10:20-0500 Heart rate 57 /min Yamel Chang CNP Work Phone: [facility] 01-29-2023 10:20-0500 SaO2% (BldA) [Mass fraction] 98 % Yamel Chang CNP Work Phone: [facility] 01-29-2023 10:20-0500 Systolic blood pressure 131 mm[Hg] Yamel Chang CNP Work Phone: [facility] 01-08-2023 14:16-0500 Body temperature 96.6 [degF] lAonso Wheat MD Work Phone: [facility] 01-08-2023 14:16-0500 Body weight 97.07 kg Alonso Wheat MD Work Phone: [facility] 01-08-2023 14:16-0500 Diastolic blood pressure 69 mm[Hg] Alonso Wheat MD Work Phone: [facility] 01-08-2023 14:16-0500 Heart rate 59 /min Alonso Wheat MD Work Phone: [facility] 01-08-2023 14:16-0500 Systolic blood pressure 128 mm[Hg] Alonso Wheat MD Work Phone: [facility] 10-10-2022 11:16-0500 Body weight 97.07 kg Svetlana Jaeger MD Work Phone: [facility] 10-10-2022 11:16-0500 Diastolic blood pressure 56 mm[Hg] Svetlana Jaeger MD Work Phone: [facility] 10-10-2022 11:16-0500 Heart rate 61 /min Svetlana Jaeger MD Work Phone: [facility] 10-10-2022 11:16-0500 Respiratory rate 12 /min Svetlana Jaeger MD Work Phone: [facility] 10-10-2022 11:16-0500 SaO2% (BldA) [Mass fraction] 95 % Svetlana Jaeger MD Work Phone: [facility] 10-10-2022 11:16-0500 Systolic blood pressure 118 mm[Hg] Svetlana Jaeger MD Work Phone: [facility] 10-10-2022 10:52-0500 Body height 173.4 cm Respiratory Wstr Work Phone: [facility] 10-10-2022 10:52-0500 Body weight 97.34 kg Respiratory Wstr Work Phone: [facility] 10-10-2022 10:52-0500 Heart rate 61 /min Respiratory Wstr Work Phone: [facility] 10-10-2022 10:52-0500 Respiratory rate 12 /min Respiratory Wstr Work Phone: [facility] 10-10-2022 10:52-0500 SaO2% (BldA) [Mass fraction] 95 % Respiratory Wstr Work Phone: [facility] 09-10-2022 09:35-0400 Body height 175 cm Alonso Wheat MD Work Phone: [facility] 09-10-2022 09:35-0400 Body weight 97.98 kg Alonso Wheat MD Work Phone: [facility] 09-10-2022 09:35-0400 Diastolic blood pressure 74 mm[Hg] Alonso Wheat MD Work Phone: [facility] 09-10-2022 09:35-0400 Heart rate 60 /min Alonso Wheat MD Work Phone: [facility] 09-10-2022 09:35-0400 Respiratory rate 16 /min Alonso Wheat MD Work Phone: [facility] 09-10-2022 09:35-0400 Systolic blood pressure 126 mm[Hg] Alonso Wheat MD Work Phone: [facility] 07-02-2022 10:21-0400 Diastolic blood pressure 73 mm[Hg] Melanie Burciaga MD Work Phone: [facility] 07-02-2022 10:21-0400 Systolic blood pressure 137 mm[Hg] Melanie Burciaga MD Work Phone: [facility] 07-02-2022 10:12-0400 Body mass index (BMI) [Ratio] 31.25 kg/m2 Melanie Burciaga MD Work Phone: [facility] 07-02-2022 10:12-0400 Body weight 95.98 kg Melanie Burciaga MD Work Phone: [facility] 07-02-2022 10:12-0400 Heart rate 57 /min Melanie Burciaga MD Work Phone: [facility] 07-02-2022 10:12-0400 SaO2% (BldA) [Mass fraction] 98 % Melanie Burciaga MD Work Phone: [facility] 03-17-2022 09:36-0400 Body mass index (BMI) [Ratio] 31.51 kg/m2 Chelly Quiroz CNP Work Phone: [facility] 03-17-2022 09:36-0400 Body weight 96.8 kg Chelly Quiroz CNP Work Phone: [facility] 03-17-2022 09:36-0400 Diastolic blood pressure 74 mm[Hg] Chelly Quiroz WO[employer] B[employer]ER Work Phone: [facility] 03-17-2022 09:36-0400 Heart rate 57 /min Chelly Quiroz [employer] Work Phone: [facility] 03-17-2022 09:36-0400 SaO2% (BldA) [Mass fraction] 96 % Chelly Quiroz [employer]ER Work Phone: [facility] 03-17-2022 09:36-0400 Systolic blood pressure 127 mm[Hg] Chelly Quiroz [employer]ER Work Phone: [facility] 03-10-2022 11:24-0400 Body height 175 cm Beverly Bernabe TRANSPORTATION SECURITY OFFICER.[employer] Work Phone: [facility] 03-10-2022 11:24-0400 Body weight 96.16 kg Beverly Bernabe TRANSPORTATION SECURITY OFFICER.[employer] Work Phone: [facility] 03-10-2022 11:24-0400 Diastolic blood pressure 62 mm[Hg] Beverly Bernabe TRANSPORTATION SECURITY OFFICER.[employer] Work Phone: [facility] 03-10-2022 11:24-0400 Heart rate 59 /min Beverly Bernabe TRANSPORTATION SECURITY OFFICER.[employer]ER Work Phone: [facility] 03-10-2022 11:24-0400 SaO2% (BldA) [Mass fraction] 98 % Beverly Bernabe TRANSPORTATION SECURITY OFFICER.[employer] Work Phone: [facility] 03-10-2022 11:24-0400 Systolic blood pressure 120 mm[Hg] Beverly Bernabe TRANSPORTATION SECURITY OFFICER.[employer] Work Phone: [facility] 03-06-2022 09:23-0400 Body temperature 96.49 [degF] Alonso Wheat MD Work Phone: [facility] 03-06-2022 09:23-0400 Body weight 96.62 kg Alonso Wheat MD Work Phone: [facility] 03-06-2022 09:23-0400 Diastolic blood pressure 64 mm[Hg] Alonso Wheat MD Work Phone: [facility] 03-06-2022 09:23-0400 Heart rate 60 /min Alonso Wheat MD Work Phone: [facility] 03-06-2022 09:23-0400 Respiratory rate 16 /min Alonso Wheat MD Work Phone: [facility] 03-06-2022 09:23-0400 Systolic blood pressure 120 mm[Hg] Alonso Wheat MD Work Phone: [facility] 07-25-2021 10:46-0400 Diastolic blood pressure 83 mm[Hg] Melanie Burciaga MD Work Phone: [facility] 07-25-2021 10:46-0400 Systolic blood pressure 153 mm[Hg] Melanie Burciaga MD Work Phone: [facility] 07-25-2021 09:52-0400 Body height 175.3 cm Melanie Burciaga MD Work Phone: [facility] 07-25-2021 09:52-0400 Body mass index (BMI) [Ratio] 32.05 kg/m2 Melanie Burciaga MD Work Phone: [facility] 07-25-2021 09:52-0400 Body weight 98.43 kg Melanie Burciaga MD Work Phone: [facility] 07-25-2021 09:52-0400 Heart rate 65 /min Melanie Burciaga MD Work Phone: [facility] 07-25-2021 09:52-0400 SaO2% (BldA) [Mass fraction] 98 % Melanie Burciaga MD Work Phone: [facility] 10-11-2020 10:11-0500 BMI (Body Mass Index) 30.84 kg/m2 Melanie Burciaga [facility] 10-11-2020 10:11-0500 Body weight 98.88 kg Melanie Burciaga [facility] 10-11-2020 10:11-0500 BP Diastolic 80 mm[Hg] Melanie Burciaga [facility] 10-11-2020 10:11-0500 BP Systolic 137 mm[Hg] Melanie Burciaga [facility] 10-11-2020 10:110500 Height 179.1 cm Melanie Burciaga [facility] 10-11-2020 10:11-0500 Pulse (Heart Rate) 66 /min Melanie Burciaga [facility] 10-11-2020 10:11-0500 Pulse Oximetry 97 % Melanie Burciaga [facility] 09-06-2019 10:25-0400 BMI (Body Mass Index) 31.79 kg/m2 [facility] 09-06-2019 10:25-0400 Body [facility] 101.92 [facility] 09-06-2019 10:25-0400 BP Diastolic 69 mm[Hg] [facility] 09-06-2019 10:25-0400 BP Systolic 126 mm[Hg] [facility] 09-06-2019 10:25-0400 Height 179.1 cm [facility] 09-06-2019 10:25-0400 Pulse (Heart Rate) 60 /min [facility] 08-19-2018 10:48-0400 BMI (Body Mass Index) 30.71 kg/m2 [facility] 08-19-2018 10:48-0400 BP [facility] 92 [facility]Hg[facility] 08-19-2018 10:48-0400 BP Systolic 156 mm[Hg] [facility] 08-19-2018 10:48-0400 Height 177.8 cm [facility] 08-19-2018 10:48-0400 Pulse (Heart Rate) 67 /min [facility] 08-19-2018 10:48-0400 Weight 97.07 kg [facility] 08-20-2017 09:08-0400 BP Diastolic 64 mm[Hg] [facility] Work Phone: 08-20-2017 09:08-0400 BP Systolic 102 mm[Hg] [facility] Work Phone: 08-20-2017 09:08-0400 Pulse (Heart Rate) 61 /min [facility] Work Phone: 08-20-2017 09:07-0400 BMI (Body Mass Index) 32 kg/m2 Gael Nelson [facility] Work Phone: 08-20-2017 09:07-0400 Height 177.8 cm Gael Nelson [facility] Work Phone: 08-20-2017 09:07-0400 Weight 101.15 kg Gael Nelson [facility] Work Phone: 08-05-2017 07:51-0400 BMI (Body Mass Index) 32.85 kg/m2 Roger Espinosa MD [facility] Work Phone: 08-05-2017 07:51-0400 Body Temperature 98.1 [degF] Roger Espinosa MD [facility] [place] [place] Work Phone: 08-05-2017 07:51-0400 BP Diastolic 79 mm[Hg] Roger Espinosa MD [facility] [place] [place] Work Phone: 08-05-2017 07:51-0400 BP Systolic 133 mm[Hg] Roger Espinosa MD [facility] [place] [place] Work Phone: 08-05-2017 07:51-0400 Height 177.8 cm Roger Espinosa MD [facility] [place] Work Phone: 08-05-2017 07:51-0400 Pulse (Heart Rate) 59 /min Roger Espinosa MD [facility] [place] Work Phone: 08-05-2017 07:51-0400 Respiratory Rate 20 /min Roger Espinosa MD [facility] [place] Work Phone: 08-05-2017 07:51-0400 Weight 103.87 kg Roger Espinosa MD [facility] [place] Work Phone: Encounters Encounter Date Encounter Type Care Provider Facility Start: 07-05-2025 ambulatory José Manuel Gunderson ty:[facility] Start: 06-09-2025 End: 06-09-2025 Office outpatient visit 15 minutes Shelby Grimes APRN.CNP Work Phone: Pulmonary Medicine Comment on above: ILD (interstitial chio ng disease) (HCC) (Primary Dx); Bronchiectasis without complication (HCC) Start: 06-09-2025 End: 06-09-2025 ambulatory SHELBY GRMIES Facility:[facility] Start: 06-05-2025 End: 06-05-2025 Office outpatient visit 25 minutes Melanie Burciaga MD Work Phone: [facility] Comment on above: Hypertrophic cardiom yopathy (HCC) (Primary Dx); Primary hypertension Start: 06-05-2025 End: 06-09-2025 ambulatory MELANIE BURCIAGA [facility] Start: 06-02-2025 End: 06-05-2025 Refill Alonso Wheat MD Work Phone: [facility] [place] Comment on above: Refill Request Start: 05-18-2025 End: 05-19-2025 Refill Romelia Renee APRN.CNP Work Phone: [facility] [place] Comment on above: Refill Request Start: 05-01-2025 End: 05-01-2025 ambulatory [facility] Start: 04-27-2025 End: 04-27-[address] Alonso Wheat MD Work Phone: [facility] Work Phone: Start: 04-27-2025 End: 04-27-[address] Jared Marques MD -Laboratory Work Phone: Start: 04-27-2025 End: 04-27-2025 ambulatory Jared Marques Facility:[facility] Start: 03-24-2025 End: 03-24-2025 ambulatory Herminia Reed MD Work Phone: Radiation Oncology Comment on above: Prostate cancer (HCC ) (Primary Dx) Start: 03-24-2025 End: 03-24-2025 Telemedicine consultation with patient Herminia Reed MD Work Phone: Radiation Oncology Start: 03-21-2025 End: 03-21-2025 Office outpatient visit 25 minutes Alonso Wheat MD Work Phone: [facility] [place] Comment on above: Light headedness (Pr imary Dx); Hypertrophic cardiomyopathy (HCC); Essential hypertension, benign; Hyperlipidemia, unspecified hyperlipidemia type; Controlled type 2 diabetes mellitus without complication, without long-term current use of insulin (HCC); ILD (interstitial lung disease) (HCC); History of prostate cancer Start: 03-21-2025 End: 03-21-2025 ambulatory ALONSO WHEAT Facility:[facility] Start: 03-15-2025 End: 03-15-2025 ambulatory ISADORACANDACE DEREK Facility:[facility] Start: 02-23-2025 End: 02-23-2025 ambulatory Delma Rider MA [facility] [employer] Start: 02-23-2025 End: 02-23-2025 Patient encounter procedure Delma Rider MA [facility] Comment on above: Population Health Na vigation Outreach ([place]/[employer] ) Start: 01-22-2025 End: 01-23-2025 Refill Romelia Renee APRN.CNP Work Phone: [facility] [place] Comment on above: Refill Request Start: 12-18-2024 End: 12-20-2024 Refill Romelia Renee APRN.[employer] Work Phone: [facility] [place] Comment on above: Refill Request Start: 11-21-2024 End: 11-21-2024 Refill Scott Freeman MA [facility] Comment on above: Medication Refill Start: 11-17-2024 End: 11-17-2024 ambulatory SVETLANA JAEGER Facility:[facility] Start: 11-17-2024 End: 11-17-2024 Patient encounter procedure Svetlana Jaeger MD Work Phone: Pulmonary Medicine Comment on above: ILD (interstitial chio ng disease) (HCC) (Primary Dx); Bronchiectasis without complication (HCC) Start: 10-30-2024 End: 10-31-2024 Refill Melanie Burciaga MD Work Phone: [facility] Comment on above: Medication Refill Start: 10-28-2024 End: 10-28-2024 Office outpatient visit 15 minutes Anulit Briggs [employer] Work Phone: [facility] Comment on above: Primary hypertension (Primary Dx); Hypertrophic cardiomyopathy (HCC) Start: 10-28-2024 End: 10-28-2024 ambulatory ALONSO WHEAT [facility] Start: 10-24-2024 End: 10-24-2024 ambulatory Pulm Lab [facility] Work Phone: [facility] Comment on above: Spirometry Start: 10-24-2024 End: 10-24-2024 Patient [facility] Work Phone: [facility] Start: 10-24-2024 End: 10-24-2024 Subsequent hospital visit by physician [facility] ([facility]) Work Phone: Cat Scan Start: 10-12-2024 End: 10-12-2024 ambulatory Alonso Wheat Facility:[facility] Start: 10-10-2024 End: 10-10-2024 ambulatory Aycammy Basali Facility:[facility] Start: 09-22-2024 End: 09-22-2024 Telephone encounter Herminia Reed MD Work Phone: Radiation Oncology Comment on above: Patient Question Start: 09-21-2024 End: 09-21-2024 ambulatory ALONSO WHEAT Facility:[facility] Start: 09-21-2024 End: 09-21-2024 Patient encounter procedure lAonso Wheat MD Work Phone: [facility] [place] Comment on above: Medicare annual well ness visit, subsequent (Primary Dx); Screening for depression; Encounter for screening examination for other mental health and behavioral disorders; Hypertrophic cardiomyopathy (HCC); Essential hypertension, benign; Controlled type 2 diabetes mellitus without complication, without long-term current use of insulin (HCC); Gross hematuria Start: 09-14-2024 End: 09-14-2024 ambulatory ROMELIA RENEE Facility:[facility] Start: 09-04-2024 End: 09-05-2024 Refill Alonso Wheat MD Work Phone: [facility] [place] Comment on above: Refill Request Start: 08-23-2024 End: 08-23-2024 ambulatory ALONSO WHEAT Facility:[facility] Start: 08-23-2024 End: 08-23-2024 Patient encounter procedure Alosno Wheat MD Work Phone: [facility] [place] Comment on above: Bronchitis (Primary Dx); ILD (interstitial lung disease) (HCC) Start: 07-31-2024 End: 08-01-2024 Refill Melanie Burciaga MD Work Phone: [facility] Comment on above: Medication Refill Start: 07-28-2024 End: 07-28-2024 ambulatory ROMELIA RENEE Facility:[facility] Start: 07-28-2024 End: 07-28-2024 Patient encounter procedure Romelia Renee TRANSPORTATION SECURITY OFFICER.[employer] Work Phone: [facility] [place] Comment on above: Encounter for immuni zation Start: 04-22-2024 Refill Romelia giron TRANSPORTATION SECURITY OFFICER.[employer] Work Phone: [facility] [place] Comment on above: Refill Request Start: 04-21-2024 End: 04-21-2024 Patient encounter procedure Svetlana Jaeger MD Work Phone: Pulmonary Medicine Comment on above: Bronchiectasis witho ut complication (HCC) (Primary Dx); ILD (interstitial lung disease) (HCC); Small airways disease Start: 03-27-2024 Refill Alonso dowell MD Work Phone: [facility] [place] Comment on above: Refill Request Start: 03-21-2024 End: 03-21-2024 ambulatory Herminia Reed MD Work Phone: Radiation Oncology Comment on above: Prostate cancer (HCC ) (Primary Dx) Start: 03-21-2024 End: 03-21-2024 Telemedicine consultation with patient Herminia Reed MD Work Phone: Radiation Oncology Start: 03-18-2024 End: 03-18-2024 Patient encounter procedure Romelia Renee TRANSPORTATION SECURITY OFFICER.[employer] Work Phone: [facility] [place] Comment on above: Controlled type 2 di abetes mellitus without complication, without long-term current use of insulin (HCC) (Primary Dx); Essential hypertension, benign; Hyperlipidemia, unspecified hyperlipidemia type; Obesity, Class I, BMI 30-34.9 Start: 02-29-2024 End: 03-01-2024 ambulatory [facility] Start: 02-11-2024 End: 02-11-2024 Office outpatient visit 15 minutes Melanie Burciaga MD Work Phone: [facility] Comment on above: Hypertrophic cardiom yopathy (HCC) (Primary Dx); Edema, unspecified type; Local edema Start: 01-03-2024 Refill Alonso dowell MD Work Phone: [facility] [place] Comment on above: Refill Request Start: 12-27-2023 Refill Romelia giron TRANSPORTATION SECURITY OFFICER.[employer] Work Phone: [facility] [place] Comment on above: Refill Request Start: 11-02-2023 Refill [facility] Comment on above: Medication Refill Start: 11-01-2023 Refill Melanie Burciaga MD Work Phone: [facility] Comment on above: Medication Refill Refill Request Start: 10-05-2023 End: 10-05-2023 Patient encounter procedure Svetlana Jaeger MD Work Phone: Pulmonary Medicine Comment on above: Wheezing (Primary Dx ); ILD (interstitial lung disease) (HCC); Hypertrophic cardiomyopathy (HCC) Start: 09-25-2023 End: 09-25-2023 ambulatory Pulm Lab [facility] Work Phone: PULM LAB [facility] Comment on above: Spirometry Start: 09-25-2023 End: 09-25-2023 Patient encounter procedure Pulm Lab [facility] Work Phone: [facility] Start: 09-25-2023 End: 09-25-2023 Subsequent hospital visit by physician Ct [facility] ([facility]) Work Phone: Cat Scan Comment on above: Interstitial pulmona ry disease (HCC) [J84.9] Start: 09-17-2023 Telephone encounter Herminia Wolf MD Work Phone: Radiation Oncology Comment on above: Appointment Start: 09-17-2023 End: 09-17-2023 Follow-up encounter Herminia Reed MD Work Phone: Radiation Oncology Comment on above: Radiotherapy follow- up (Primary Dx); Prostate cancer (HCC) Start: 09-17-2023 End: 09-17-2023 Telemedicine consultation with patient Herminia Reed MD, MD Work Phone: [facility] Start: 09-04-2023 End: 09-04-2023 ambulatory Immunization Clinic Nurse [place] Work Phone: [facility] [place] Start: 08-24-2023 Refill Melanie Burciaga MD Work Phone: [facility] Comment on above: Medication Refill Start: 08-05-2023 Orders Only Nereyda Montelongo RN [facility] Comment on above: 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) Start: 08-05-2023 End: 08-05-2023 Office outpatient visit 15 minutes Melanie Burciaga MD Work Phone: [facility] Comment on above: Hypertrophic cardiom yopathy (HCC) Start: 05-10-2023 Refill Melanie Burciaga MD Work Phone: [facility] Comment on above: Medication Refill Start: 04-02-2023 Get Medical Advice Romelia arthur APRN.CNP Work Phone: [facility] [place] Comment on above: One touch refill Start: 04-01-2023 End: 04-01-2023 Patient encounter procedure Melanie Kahn PA-C Work Phone: Pulmonary Medicine Comment on above: Interstitial pulmona ry disease (HCC) (Primary Dx); Wheezing; Hemoptysis Start: 03-11-2023 End: 03-11-2023 Subsequent hospital visit by physician Xr [facility] [place] Work Phone: Radiology Comment on above: Atypical chest pain [R07.89] Start: 03-11-2023 End: 03-11-2023 Patient encounter procedure Alonso Wheat MD Work Phone: [facility] [place] Comment on above: Atypical chest pain (Primary Dx); ILD (interstitial lung disease) (HCC); Controlled type 2 diabetes mellitus without complication, without long-term current use of insulin (HCC); Essential hypertension, benign; Hypertrophic cardiomyopathy (HCC) Start: 01-29-2023 End: 01-29-2023 Office outpatient visit 25 minutes Yamel Chang CNP Work Phone: [facility] Comment on above: Primary hypertension (Primary Dx); RBBB (right bundle branch block with left anterior fascicular block); Dizziness Start: 01-18-2023 Refill Romelia Older TRANSPORTATION SECURITY OFFICER .[employer] Work Phone: [facility] [place] Comment on above: Refill Request Start: 01-08-2023 End: 01-08-2023 Subsequent hospital visit by physician Sandhya [facility] [place] Work Phone: Radiology Comment on above: Sinobronchitis [J32. 9, J40] Start: 01-08-2023 End: 01-08-2023 Patient encounter procedure Alonso Wheat MD Work Phone: [facility] [place] Comment on above: Sinobronchitis (Prim mike Dx); ILD (interstitial lung disease) (HCC) Start: 12-29-2022 Refill Romelia Older TRANSPORTATION SECURITY OFFICER .[employer] Work Phone: Internal Medicine [place] Comment on above: Refill Request Start: 11-26-2022 Refill Moni Garvey RN [facility] Comment on above: Medication Refill Start: 10-15-2022 End: 10-15-2022 Subsequent hospital visit by physician Ct [facility] ([facility]) Work Phone: Cat Scan Start: 10-10-2022 End: 10-10-2022 ambulatory Respiratory Therapist [facility] Work Phone: Pulmonary Medicine Comment on above: Spirometry Start: 10-10-2022 End: 10-10-2022 Patient encounter procedure Respiratory Therapist [facility] Work Phone: [facility] Comment on above: ILD (interstitial chio ng disease) (HCC) (Primary Dx); Abnormal PFT Start: 09-19-2022 Telephone encounter Herminia Wolf MD Work Phone: Hematology/Oncology Comment on above: Future Appointment Start: 09-19-2022 End: 09-19-2022 Follow-up encounter Herminia Reed MD Work Phone: Radiation Oncology Comment on above: Radiotherapy follow- up (Primary Dx); Prostate cancer (HCC) Start: 09-19-2022 End: 09-19-2022 Telemedicine consultation with patient Herminia Reed MD, MD Work Phone: [facility] Start: 09-10-2022 End: 09-10-2022 Patient encounter procedure Alonso Wheat MD Work Phone: [facility] [place] Comment on above: Medicare annual well ness visit, subsequent (Primary Dx); Controlled type 2 diabetes mellitus without complication, without long-term current use of insulin (HCC); Benign prostatic hyperplasia with incomplete bladder emptying Start: 08-21-2022 End: 08-21-2022 Orders Only Alonso Wheat MD Work Phone: [facility] [place] Comment on above: Need for COVID-19 va ccine (Primary Dx) Need for vaccination (Primary Dx) Start: 08-13-2022 Refill Melanie Burciaga MD Work Phone: [facility] Comment on above: Medication Refill Start: 07-29-2022 End: 07-29-2022 Nursing evaluation of patient and report Mi Nurse Work Phone: [facility] [place] Comment on above: Need for influenza v accination (Primary Dx) Start: 07-16-2022 Patient encounter procedure Roxane Steen PT Work Phone: [facility] Work Phone: Start: 07-06-2022 Refill Alonso dowell MD Work Phone: [facility] [place] Comment on above: Refill Request Start: 07-02-2022 End: 07-02-2022 Office outpatient visit 15 minutes Melanie Burciaga MD Work Phone: [facility] Comment on above: Essential hypertensi on (Primary Dx); Hypertrophic non-obstructive cardiomyopathy (HCC) Start: 04-14-2022 End: 04-14-2022 Patient encounter procedure [facility] Start: 03-19-2022 Telephone encounter Beverly Bernabe APRN.[employer] Work Phone: Gastroenterology Comment on above: Results Start: 03-18-2022 End: 03-18-2022 Subsequent hospital visit by physician [facility] ([facility]) Work Phone: Cat Scan Comment on above: Bloating [R14.0] Start: 03-17-2022 End: 03-17-2022 Office outpatient visit 15 minutes Chelly Quiroz CNP Work Phone: [facility] Comment on above: Hypertrophic non-obs tructive cardiomyopathy (HCC); Essential hypertension; Mixed hyperlipidemia Start: 03-13-2022 Telephone encounter Beverly Bernabe APRN.[employer] Work Phone: Gastroenterology Comment on above: Results Start: 03-10-2022 End: 03-10-2022 Patient encounter procedure Beverly Bernabe APRN.[employer] Work Phone: Gastroenterology Comment on above: Constipation, unspec ified constipation type (Primary Dx); Bloating; Flatulence; Early satiety Start: 03-07-2022 PTFUADULT4, Provider : Katya Alvarez, Status: Pen, Time: 10:45 AM Sherlyn Isabel LEAD LEVEL DESIGNER Work Phone: [facility] Work Phone: Start: 03-07-2022 Patient encounter procedure Becky Bauer LEAD LEVEL DESIGNER Work Phone: [facility] [place] Work Phone: Start: 03-06-2022 End: 03-06-2022 Patient encounter procedure Alonso Wheat MD Work Phone: [facility] [place] Comment on above: Benign prostatic hyp erplasia with incomplete bladder emptying (Primary Dx); Controlled type 2 diabetes mellitus without complication, without long-term current use of insulin (HCC); Essential hypertension, benign; Edema of left lower leg Start: 03-05-2022 Patient encounter procedure Sherlyn Isabel LEAD LEVEL DESIGNER Work Phone: [facility] [place] Work Phone: Start: 03-03-2022 Orders Only Svetlana Jaeger MD Work Phone: Pulmonary Medicine Comment on above: ILD (interstitial chio ng disease) (HCC) (Primary Dx) Orders Start: 02-28-2022 Patient encounter procedure Katya Alvarez LEAD LEVEL DESIGNER Work Phone: [facility] [place] Work Phone: Start: 02-28-2022 PTFUADULT4, Provider : Katya Alvarez, Status: Pen, Time: 11:30 AM Sherlyn Isabel LEAD LEVEL DESIGNER Work Phone: [facility] [place] Work Phone: Start: 02-26-2022 Patient encounter procedure Sherlyn Isbael LEAD LEVEL DESIGNER Work Phone: [facility] [place] Work Phone: Start: 02-17-2022 Refill Melanie Burciaga MD Work Phone: [facility] Comment on above: Medication Refill Start: 02-17-2022 Patient encounter procedure Roxane Steen PT Work Phone: [facility] Work Phone: Start: 08-06-2021 Refill Nereyda Montelongo RN [facility] Comment on above: Medication Refill Start: 07-25-2021 Orders Only Fatmata Monroe RN [facility] Comment on above: Preop cardiovascular exam (Primary Dx) Start: 07-25-2021 End: 07-25-2021 Patient encounter status Fatmata Monroe RN [facility] Start: 07-25-2021 End: 07-25-2021 Office outpatient visit 15 minutes Melanie Burciaga MD Work Phone: [facility] Comment on above: Hypertrophic cardiom yopathy (HCC) (Primary Dx); Preop cardiovascular exam Start: 01-17-2021 End: 01-17-2021 Subsequent hospital visit by physician Melanie Burciaga Work Phone: [facility] Comment on above: Palpitations Start: 01-15-2021 End: 01-15-2021 Documentation procedure Nereyda Montelongo [facility] Start: 12-31-2020 End: 12-31-2020 Refill Melanie Burciaga Work Phone: [facility] Comment on above: Medication Refill Start: 12-06-2020 End: 12-06-2020 Orders Only Kristina Cuevas Work Phone: [facility] Start: 11-30-2020 End: 11-30-2020 Subsequent hospital visit by physician Melanie Burciaga Work Phone: [facility] Comment on above: Hypertrophic cardiom yopathy (HCC) Start: 10-11-2020 End: 10-11-2020 Office outpatient visit 25 minutes Melanie Burciaga Work Phone: [facility] Comment on above: Hypertrophic cardiom yopathy (HCC) (Primary Dx); Hypertension, unspecified type Start: 08-31-2020 Patient encounter procedure Becky Bauer [facility] Work Phone: Start: 08-29-2020 Patient encounter procedure Becky HUNTER [facility] Work Phone: Start: 08-27-2020 Patient encounter procedure Becky Bauer [facility] Work Phone: Start: 08-24-2020 Patient encounter procedure Becky Bauer [facility] Work Phone: Start: 08-22-2020 Patient encounter procedure Isabela Steel [facility] Work Phone: Start: 08-20-2020 Patient encounter procedure Isabela Steel [facility] Work Phone: Start: 08-16-2020 Patient encounter procedure Isabela Steel [facility] Work Phone: Start: 08-14-2020 Patient encounter procedure Isabela Steel [facility] Work Phone: Start: 08-09-2020 Patient encounter procedure Isabela HUNTER [facility] Work Phone: Start: 09-06-2019 End: 09-06-2019 Office outpatient visit 15 minutes Gael Nelson Work Phone: [facility] Comment on above: Hypertrophic cardiom yopathy (HCC) (Primary Dx); RBBB (right bundle branch block with left anterior fascicular block); Orthostatic dizziness; Essential hypertension; Other ill-defined heart diseases ; 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) Start: 09-01-2019 End: 09-01-2019 Patient encounter procedure Provider Not In System [facility] Comment on above: Low back pain due to bilateral sciatica (Primary Dx) Start: 08-31-2019 End: 08-31-2019 Patient encounter procedure Provider Not In System [facility] Comment on above: Low back pain due to bilateral sciatica (Primary Dx) Start: 08-29-2019 End: 08-29-2019 Patient encounter procedure Provider Not In System [facility] Comment on above: Low back pain due to bilateral sciatica (Primary Dx) Start: 08-25-2019 End: 08-25-2019 Patient encounter procedure Provider Not In System [facility] Comment on above: Low back pain due to bilateral sciatica (Primary Dx) Start: 08-24-2019 End: 08-24-2019 Patient encounter procedure Provider Not In System [facility] Comment on above: Low back pain due to bilateral sciatica (Primary Dx) Start: 08-22-2019 End: 08-22-2019 Patient encounter procedure Provider Not In System [facility] Comment on above: Low back pain due to bilateral sciatica Start: 08-15-2019 End: 08-15-2019 Patient encounter procedure Provider Not In [facility] Comment on above: Low back pain due to bilateral sciatica Start: 08-11-2019 End: 08-11-2019 Patient encounter procedure Provider Not In [facility] Comment on above: Low back pain due to bilateral sciatica Start: 08-10-2019 End: 08-10-2019 Patient encounter procedure Provider Not In [facility] Comment on above: Low back pain due to bilateral sciatica Start: 08-08-2019 End: 08-08-2019 Patient encounter procedure Provider Not In [facility] Comment on above: Low back pain due to bilateral sciatica Start: 08-04-2019 End: 08-04-2019 Patient encounter procedure Provider Not In [facility] Comment on above: Low back pain due to bilateral sciatica Start: 08-03-2019 End: 08-03-2019 Patient encounter procedure Provider Not In System [facility] Comment on above: Low back pain due to bilateral sciatica Start: 08-01-2019 End: 08-01-2019 Patient encounter procedure Provider Not In [facility] Comment on above: Low back pain due to bilateral sciatica Start: 07-28-2019 End: 07-28-2019 Patient encounter procedure Provider Not In System [facility] Comment on above: Low back pain due to bilateral sciatica Start: 07-27-2019 End: 07-27-2019 Patient encounter procedure Provider Not In System [facility] Comment on above: Low back pain due to bilateral sciatica Start: 07-21-2019 End: 07-21-2019 Patient encounter procedure Provider Not In System [facility] Comment on above: Low back pain due to bilateral sciatica Start: 07-20-2019 End: 07-20-2019 Patient encounter procedure Provider Not In System [facility] Comment on above: Low back pain, unspe cified back pain laterality, unspecified chronicity, with sciatica presence unspecified; Lumbar radiculopathy; Low back pain due to bilateral sciatica Start: 08-19-2018 End: 08-20-2018 Patient encounter GAEL NELSON [facility] Start: 08-19-2018 End: 08-19-2018 Patient encounter Gael Nelson Work Phone: [facility] Comment on above: Hypertrophic cardiom yopathy (HCC) Start: 08-19-2018 End: 08-19-2018 Office outpatient visit 15 minutes Gael Nelson Work Phone: [facility] Comment on above: Essential hypertensi on (Primary Dx); Hypertrophic cardiomyopathy (HCC); Mixed hyperlipidemia; RBBB (right bundle branch block with left anterior fascicular block); Orthostatic dizziness Start: 04-28-2018 End: 04-28-2018 Ambulatory LEONARD EULALIA [facility] Start: 08-20-2017 Office/outpatient visit, est, level 3 Gael Nelson Work Phone: [facility] Procedures Date Procedure Procedure Detail Performing Clinician Start: 04-27-2025 Methadone measurement, urine Dr. Alonso Wheat MD Work Phone: Start: 04-27-[address] Alonso Wheat MD Work Phone: Comment on above: Test Ordered: [id number] [id number]+FB6Gjwzzgjqrmzs Screen, Urine Negative ng/mL UI Reference Range: Mcjqum=891Hcenbgasmyj test includes Amphetamine and Methamphetamine.Barbiturates Negative ng/mL UI Reference Range: Rimpwi=778Pgplkdcqukxgobm Negative ng/mL UI Reference Range: Dgylfq=864Zazjatz (Metab.), Urine Negative ng/mL UI Reference Range: Oiafid=032Vqgdpgu Note: ng/mL UI See Final Results Reference Range: Kfurmu=220Cncewr test includes Codeine, Morphine, Hydromorphone, Hydrocodone.Opiates Positive [A ] UI Reference Range: Dvtyhe=226Cthwhy test includes Codeine, Morphine, Hydromorphone, Hydrocodone.Codeine Negative UI Reference Range: Bsmgur=896Ybhctbku Negative UI Reference Range: Izwkzg=453Hffprtmtjglid Negative UI Reference Range: Chntbg=329Ptmkunhiyke Positive [A ] UI Reference Range: .Hydrocodone Conf, MS, UR 458 ng/mL UI Reference Range: Ptssxj=2404-Bzhfheitenzaba, Urine Negative ng/mL UI Reference Range: Cutoff=10Oxycodone/Oxymorphone, Urine Negative ng/mL UI Reference Range: Cderja=542Gfmy includes Oxycodone and OxymorphonePCP, Urine Negative ng/mL UI Reference Range: Cutoff=25Methadone Screen, Urine Negative ng/mL UI Reference Range: Etbiam=192Yptdhjjttxbg, Urine Negative ng/mL UI Reference Range: Ethrxy=140Fwhbdazt, Urine Negative ng/mL UI Reference Range: Cutoff=2.0Test includes Fentanyl and NorfentanylThis test was developed and its performance characteristicsdetermined by [facility]. It has not been cleared orapproved by the Food and Drug Administration.Tramadol Negative ng/mL UI Reference Range: Zwmfia=085Lukjxgnftzlrt, Urine Negative ng/mL UI Reference Range: Cutoff=10Creatinine, Urine 54.8 mg/dL UI Reference Range: 20.0-300.0pH, Urine 5.7 UI Reference Range: 4.5-8.9Performed at: - [facility] [id number] [place], [place] [id number] Director: Sathish Stern PhD, Phone: [phone] at: [address] [id number] Director: Devyn Monreal PhD, Phone: [phone] Start: 10-28-2024 Ecg routine ecg w/le ast 12 lds w/i&r Anu Briggs [employer] Work Phone: Start: 10-24-2024 Spmtry w/vc expirato ry carlos w/wo mxml vol vntj Svetlana Jaeger MD Work Phone: Start: 09-21-2024 Urnls dip stick/tabl et rgnt auto w/o microscopy Alonso Wheat MD Work Phone: Start: 09-21-2024 Adult depression scr eening assessment Alonso Wheat MD Work Phone: Start: 09-25-2023 Brncdilat rspse spmt ry pre&post-brncdilat luci Kahn PA-C Work Phone: Start: 09-04-2023 INFLUENZA VACCINE, P RSV FREE, AGE 65+ YR, HIGH DOSE, QUADRIVALENT (FLUZONE HIGH-DOSE) Alonso Wheat MD Work Phone: Start: 08-05-2023 Ecg routine ecg w/le ast 12 lds w/i&r Melanie Burciaga MD Work Phone: Start: 03-11-2023 Radex ribs uni w/pos teroant ch minimum 3 views Alonso Wheat MD Work Phone: Start: 01-08-2023 Radiologic exam ches t 2 views Alonso Wheat MD Work Phone: Start: 10-15-2022 Ct thorax w/o contra st material Svetlana Jaeger MD Work Phone: Start: 10-10-2022 Brncdilat rspse spmt ry pre&post-brncdilat luci Jaeger MD Work Phone: Start: 08-21-2022 [employer] COVI D-19 BIVALENT BOOSTER VACCINE, AGE 12+ YR Alonso Wheat MD Work Phone: Start: 07-29-2022 INFLUENZA SEASONAL QUADRIVALENT HIGH DOSE AGE 65+ Alonso Wheat MD Work Phone: Start: 07-02-2022 Ecg routine ecg w/le ast 12 lds w/i&r Melanie Burciaga MD Work Phone: Start: 03-18-2022 Ct abdomen & pelvis w/contrast material Beverly Bernabe APRN.[employer] Work Phone: Start: 03-06-2022 Microalbumin [Mass/v olume] in Urine by Test strip Chelly Quiroz [employer] Work Phone: Start: 07-25-2021 Ecg routine ecg w/le ast 12 lds w/i&r Melanie Burciaga MD Work Phone: Start: 11-30-2020 Cardiac mri w/wo con trast & further seq Melanie Burciaga Work Phone: Start: 11-30-2020 Creatinine [Mass/vol ume] in Blood Melanie Burciaga Work Phone: Start: 10-11-2020 12 lead ECG Melanie Burciaga Work Phone: Start: 09-06-2019 12 lead ECG Gael Nelson Work Phone: Start: 08-19-2018 End: 08-19-2018 Ecg routine ecg w/least 12 lds w/i&r Gael Nelson Work Phone: Plan of Treatment Date Care Activity Detail Author Start: 03-30-2026 End: 03-30-2026 ambulatory Radiation Oncology Comment on above: 1YR/LABS 5/ 1YR OV/LABS 5/2* Start: 03-24-2026 End: 03-24-2026 ambulatory 03/24/2026 10:30 AM EDT Results Only [facility] [address] [facility] [place] [address] PSA [facility] Comment on above: PSA Start: 03-21-2026 Diabetic foot examination Diabetic Foot Exam [facility] Start: 03-15-2026 Hepatitis B screening Urine Al bumin:Creatinine Ratio [facility] Start: 03-15-2026 Hepatitis B surface antibody level LDL Cholesterol [facility] Start: 11-27-2025 End: 11-27-2025 Patient encounter procedure 11/27/2025 2:45 PM EST Office Visit Pulmonary Medicine [address] [place] [address] Svetlana Jaeger MD [address] [place] [address] f Pulmonary Medicine Comment on above: f Start: 11-27-2025 End: 11-27-2025 ambulatory 11/27/2025 2:00 PM EST Procedure PULM LAB [facility] [address] [place] [address] W[facility], Pulm Lab [facility] [address] [place] [address] fol PULM LAB [facility] Comment on above: fol Start: 11-27-2025 End: 11-27-2025 Patient encounter procedure [facility]UL[facility] LAB [facility] Comment on above: f Start: 11-08-2025 Glaucoma screening Dilated Retinal E xam [facility] Start: 10-30-2025 End: 07-09-2026 CT Chest WO contrast CT CHEST WO IVCON Radiology Routine ILD (interstitial lung disease) (HCC) Expected: 10/30/2025 (Approximate), Expires: 07/09/[address] [facility] Work Phone: Comment on above: Expected: 10/30/2025 (Approximate), Expires: 07/09/2026 Start: 09-21-2025 Anxiety Screening Anxiety Screening [facility] Start: 09-21-2025 Covid-19 Vaccine () Covid-19 Vaccine () [facility] Comment on above: Postponed from 07/24 (Declined at this time) Start: 09-21-2025 Depression Screening Depression Scre ening [facility] Start: 09-21-2025 Medicare Annual Well ness Visit Medicare Annual Wellness Visit [facility] Start: 09-14-2025 Hemoglobin A1c measurement [facility] Start: 09-14-2025 End: 09-14-2025 Patient encounter procedure 09/14/2025 11:20 AM EDT Office Visit Internal Medicine [place] [address] [place] [address] Alonso Wheat MD [address] [place] [address] Anual Medicare Wellness w/6 month follow-up [facility] Medicine [place] Comment on above: Anual Medicare Welln ess w/6 month follow-up Start: 09-04-2025 End: 12-04-2025 Basic metabolic 2000 panel - Serum or Plasma BASIC METABOLIC PANEL Lab Routine Controlled type 2 diabetes mellitus without complication, without long-term current use of insulin (HCC) Expected: 09/04/2025, Expires: 12/04/[address] [facility] Work Phone: Comment on above: Expected: 09/04/2025 , Expires: 12/04/2025 Start: 09-04-2025 End: 12-04-2025 Hemoglobin A1c in Blood HEMOGLOBIN A1C Lab Routine Controlled type 2 diabetes mellitus without complication, without long-term current use of insulin (HCC) Expected: 09/04/2025, Expires: 12/04/2025 [facility] Comment on above: Expected: 09/04/2025 , Expires: 12/04/2025 Start: 07-24-2025 Influenza vaccination Influenza Vacc ine (#1) [facility] Start: 06-09-2025 End: 06-09-2025 Patient encounter procedure 06/09/2025 2:00 PM EDT Office Visit Pulmonary Medicine [address] [place] [address] Shelby Grimes APRN.[employer] [address] [place] [address] 6 month follow up Pulmonary Medicine Comment on above: 6 month follow up Start: 04-28-2025 End: 12-29-2025 Echocardiography Echocardiogram complete Echocardiography Routine Hypertrophic cardiomyopathy (HCC) Expected: 04/28/2025, Expires: 12/29/2025 [facility] Work Phone: Comment on above: Expected: 04/28/2025 , Expires: 12/29/2025 Start: 04-28-2025 End: 04-28-2025 Patient encounter procedure 04/28/2025 11:00 AM EDT Appointment [facility] [address] [place] [id number] Anu Briggs, [employer] [address] [place] [address] [facility] Start: 03-26-2025 Covid-19 Vaccine () Covid-19 Vaccine () [facility] Start: 03-24-2025 End: 06-23-2025 Prostate specific Ag [Mass/volume] in Serum or Plasma PROSTATE-SPECIFIC ANTIGEN DIAGNOSTIC Lab Routine Prostate cancer (HCC) Expected: 03/24/2025, Expires: 06/23/[address] [facility] Work Phone: Comment on above: Expected: 03/24/2025 , Expires: 06/23/2025 Start: 03-24-2025 End: 03-24-2025 ambulatory 03/24/2025 11:00 AM EDT [facility] Radiation Oncology [address] [place] [id number] Herminia Reed MD [address] [place] [address] 1 YR OV/PSA 03/21* Radiation Oncology Comment on above: 1 YR OV/PSA 03/21* Start: 03-22-2025 End: 06-21-2025 CBC panel - Blood by Automated count COMPLETE BLOOD COUNT Lab Routine Essential hypertension, benign Expected: 03/22/2025, Expires: 06/21/[address] [facility] Work Phone: Comment on above: Expected: 03/22/2025 , Expires: 06/21/2025 Start: 03-22-2025 End: 06-21-2025 Comprehensive metabolic 2000 panel - Serum or Plasma COMPREHENSIVE METABOLIC PANEL Lab Routine Controlled type 2 diabetes mellitus without complication, without long-term current use of insulin (HCC) Expected: 03/22/2025, Expires: 06/21/2025 [facility] Comment on above: Expected: 03/22/2025 , Expires: 06/21/2025 Start: 03-22-2025 End: 06-21-2025 Hemoglobin A1c in Blood HEMOGLOBIN A1C Lab Routine Controlled type 2 diabetes mellitus without complication, without long-term current use of insulin (HCC) Expected: 03/22/2025, Expires: 06/21/2025 [facility] Comment on above: Expected: 03/22/2025 , Expires: 06/21/2025 Start: 03-22-2025 End: 06-21-2025 Lipid 1996 panel - Serum or Plasma LIPID PANEL BASIC Lab Routine Controlled type 2 diabetes mellitus without complication, without long-term current use of insulin (HCC) Expected: 03/22/2025, Expires: 06/21/2025 [facility] Comment on above: Expected: 03/22/2025 , Expires: 06/21/2025 Start: 03-22-2025 End: 06-21-2025 Microalbumin/Creatinine [Mass Ratio] in Urine ALBUMIN/CREATININE RATIO, URINE Lab Routine Controlled type 2 diabetes mellitus without complication, without long-term current use of insulin (HCC) Expected: 03/22/2025, Expires: 06/21/2025 [facility] Comment on above: Expected: 03/22/2025 , Expires: 06/21/2025 Start: 03-22-2025 End: 03-22-2025 ambulatory 03/22/2025 11:00 AM EDT Results Only [place] [facility] Laboratory [address] [place] [address] LAB* [facility] Comment on above: LAB* Start: 03-21-2025 End: 06-20-2025 Prostate specific Ag [Mass/volume] in Serum or Plasma PROSTATE-SPECIFIC ANTIGEN DIAGNOSTIC Lab Routine Prostate cancer (HCC) Expected: 03/21/2025 (Approximate), Expires: 06/20/[address] [facility] Work Phone: Comment on above: Expected: 03/21/2025 (Approximate), Expires: 06/20/2025 Start: 03-21-2025 End: 03-21-2025 Patient encounter procedure 03/21/2025 10:20 AM EDT Office Visit Internal Medicine [place] [address] [place], [place] [address] Alonso Wheat MD [address] [place], [place] [address] 6 month follow-up [facility] Medicine [place] Comment on above: 6 month follow-up Start: 03-18-2025 Diabetic foot examination Diabetic Foot Exam [facility] Start: 03-17-2025 Hepatitis B screening Urine Al bumin:Creatinine Ratio [facility] Start: 03-17-2025 Hepatitis B surface antibody level LDL Cholesterol [facility] Start: 03-15-2025 Hemoglobin A1c measurement [facility] Start: 02-10-2025 eGFR Diabetes eGFR Diabetes [facility] Start: 02-10-2025 Urine screening for protein eGFR Diabetes [facility] Start: 11-23-2024 Advance Directive Discussion Advance Directive Discussion [facility] Start: 11-17-2024 End: 11-17-2024 Patient encounter procedure 11/17/2024 1:15 PM EST Office Visit Pulmonary Medicine [address] [place], [place] [id number] Svetlana Jaeger MD [address] [place] [address] 6 mo ov Pulmonary Medicine Comment on above: 6 mo ov Start: 10-24-2024 End: 10-24-2024 Patient encounter procedure 10/24/2024 1:00 PM EST Appointment Cat Scan [address] [place], [place] [id number] ILD (interstitial lung disease) (HCC) [J84.9] Cat Scan Comment on above: ILD (interstitial chio ng disease) (HCC) [J84.9] Start: 10-24-2024 End: 10-24-2024 ambulatory PULM LAB [facility] Comment on above: ILD (interstitial chio ng disease) (HCC) [J84.9] Start: 10-22-2024 End: 05-21-2025 CT Chest WO contrast CT CHEST WO IVCON Radiology Routine Expected: 10/22/2024, Expires: 05/21/2025 [facility] Comment on above: Expected: 10/22/2024 , Expires: 05/21/2025 Start: 10-14-2024 Glaucoma screening Dilated Retinal E xam [facility] Start: 10-14-2024 Hepatitis C antibody , confirmatory test Dilated Retinal Exam [facility] Start: 09-21-2024 End: 09-21-2024 Patient encounter procedure 09/21/2024 10:40 AM EDT Office Visit Internal Medicine [place] [address] [place] [id number] Alonso Wheat MD [address] [place] [id number] Medicare Wellness - 6m follow up [facility] Medicine [place] Comment on above: Medicare Wellness - 6m follow up Start: 09-17-2024 End: 12-17-2024 Hemoglobin A1c in Blood HEMOGLOBIN A1C Lab Routine Controlled type 2 diabetes mellitus without complication, without long-term current use of insulin ([facility]) Expected: 09/17/2024 (Approximate), Expires: 12/17/[address] [facility] Work Phone: Comment on above: Expected: 09/17/2024 (Approximate), Expires: 12/17/2024 Start: 09-17-2024 End: 09-17-2024 ambulatory 09/17/2024 11:00 AM EDT Results Only [facility] [address] [facility] [address] [facility] Start: 09-16-2024 Hemoglobin A1c measurement HbA1C [facility] Start: 07-24-2024 Covid-19 Vaccine ( season) Covid-19 Vaccine () [facility] Start: 07-24-2024 Covid-19 Vaccine () Covid-19 Vaccine () [facility] Start: 07-24-2024 Influenza vaccination Influenza Vacc ine (#1) [facility] Start: 04-21-2024 End: 04-21-2024 Patient encounter procedure 04/21/2024 3:15 PM EDT Office Visit Pulmonary Medicine [address] [place] [address] Svetlana Jaeger MD [address] [place], [place] [address] six month follow up Pulmonary Medicine Comment on above: six month follow up Start: 04-05-2024 End: 04-05-2024 Patient encounter procedure 04/05/2024 11:00 AM EDT Appointment [facility] [address] [place] [address] [place] [id number] Melanie Burciaga MD [address] [place] [address] [facility] Start: 03-21-2024 End: 03-21-2024 Follow-up encounter 03/21/2024 1:00 PM EDT [facility] Radiation Oncology [address] [place], [place] [phone] Herminia Reed MD [address] [facility] [place] [address] 6 MO FOLLOW UP/PSA 03/17* Radiation Oncology Comment on above: 6 MO FOLLOW UP/PSA * Start: 03-18-2024 End: 06-17-2024 Prostate specific Ag [Mass/volume] in Serum or Plasma PSA/PROSTSPECAG DIAG Lab Routine Prostate cancer (HCC) Expected: 03/18/2024 (Approximate), Expires: 06/17/[address] [facility] Work Phone: Comment on above: Expected: 03/18/2024 (Approximate), Expires: 06/17/2024 Start: 03-11-2024 3 comp foot exam completed DIABETIC FOOT EXAM [facility] Start: 03-11-2024 Diabetic foot examination Diabetic Foot Exam [facility] Start: 03-11-2024 Hemoglobin A1c measurement [facility] Start: 03-11-2024 Hemoglobin A1c/Hemoglobin.total in Blood HbA1C [facility] Start: 03-11-2024 Hepatitis B screening URINE AL BUMIN:CREATININE RATIO [facility] Start: 03-03-2024 Hepatitis B surface antibody level LDL CHOLESTEROL [facility] Start: 02-17-2024 End: 02-17-2024 Patient encounter procedure 02/17/2024 11:00 AM EDT Office Visit [facility] [address] [facility] [place] [address] Melanie Burciaga MD [address] [place] [address] [facility] Start: 11-23-2023 Advance Directive Discussion Advance Directive Discussion [facility] Start: 11-23-2023 Behavioral Health Screening Behavioral Health Screening [facility] Start: 11-23-2023 Depression Assessment Depression Ass essment [facility] Start: 09-29-2023 Hepatitis C antibody , confirmatory test DILATED RETINAL EXAM [facility] Start: 09-23-2023 End: 04-30-2024 Ct thorax w/o contrast material CT CHEST WO IVCON Radiology Routine Interstitial pulmonary disease (HCC) Expected: 09/23/2023, Expires: 04/30/[address] [facility] Work Phone: Comment on above: Expected: 09/23/2023 , Expires: 04/30/2024 Start: 09-19-2023 End: 11-19-2023 Prostate specific Ag [Mass/volume] in Serum or Plasma PSA/PROSTSPECAG DIAG Lab Routine Prostate cancer (HCC) Expected: 09/19/2023 (Approximate), Expires: 11/19/[address] [facility] Work Phone: Comment on above: Expected: 09/19/2023 (Approximate), Expires: 11/19/2023 Start: 09-10-2023 End: 11-10-2023 Basic metabolic 2000 panel - Serum or Plasma BASIC METABOLIC PNL Lab Routine Controlled type 2 diabetes mellitus without complication, without long-term current use of insulin (HCC) Expected: 09/10/2023, Expires: 11/10/[address] [facility] Work Phone: Comment on above: Expected: 09/10/2023 , Expires: 11/10/2023 Start: 09-10-2023 End: 11-10-2023 CBC panel - Blood by Automated count CBC Lab Routine Essential hypertension, benign Expected: 09/10/2023, Expires: 11/10/[address] [facility] Work Phone: Comment on above: Expected: 09/10/2023 , Expires: 11/10/2023 Start: 09-10-2023 End: 11-10-2023 Hemoglobin A1c in Blood HGB A1C Lab Routine Controlled type 2 diabetes mellitus without complication, without long-term current use of insulin (HCC) Expected: 09/10/2023, Expires: 11/10/[address] [facility] Work Phone: Comment on above: Expected: 09/10/2023 , Expires: 11/10/2023 Start: 09-10-2023 End: 11-10-2023 Lipid 1996 panel - Serum or Plasma LIPID PANEL BASIC Lab Routine Controlled type 2 diabetes mellitus without complication, without long-term current use of insulin (HCC) Expected: 09/10/2023, Expires: 11/10/[address] [facility] Work Phone: Comment on above: Expected: 09/10/2023 , Expires: 11/10/2023 Start: 09-02-2023 Hemoglobin A1c measurement A1C [facility] Start: 09-02-2023 Hemoglobin A1c/Hemoglobin.total in Blood HBA1C [facility] Start: 08-05-2023 End: 08-05-2023 Patient encounter procedure [facility] Start: 07-24-2023 Covid-19 Vaccine () Covid-19 Vaccine () [facility] Start: 07-24-2023 Influenza vaccination Sequenti al Influenza Vaccine (#1) [facility] Start: 03-11-2023 End: 05-11-2023 Comprehensive metabolic 2000 panel - Serum or Plasma COMP METABOLIC PANEL Lab Routine Controlled type 2 diabetes mellitus without complication, without long-term current use of insulin (HCC) Expected: 03/11/2023, Expires: 05/11/[address] [facility] Work Phone: Comment on above: Expected: 03/11/2023 , Expires: 05/11/2023 Start: 03-11-2023 End: 05-11-2023 Hemoglobin A1c in Blood HGB A1C Lab Routine Controlled type 2 diabetes mellitus without complication, without long-term current use of insulin (HCC) Expected: 03/11/2023, Expires: 05/11/[address] [facility] Work Phone: Comment on above: Expected: 03/11/2023 , Expires: 05/11/2023 Start: 03-11-2023 End: 05-11-2023 Lipid 1996 panel - Serum or Plasma LIPID PANEL BASIC Lab Routine Controlled type 2 diabetes mellitus without complication, without long-term current use of insulin (HCC) Expected: 03/11/2023, Expires: 05/11/[address] [facility] Work Phone: Comment on above: Expected: 03/11/2023 , Expires: 05/11/2023 Start: 03-06-2023 3 comp foot exam completed DIABETIC FOOT EXAM [facility] Start: 03-06-2023 Hepatitis B screening URINE AL BUMIN:CREATININE RATIO [facility] Start: 03-06-2023 Microalbumin measurement, urine, quantitative Urine Microalbumin [facility] Start: 03-06-2023 Urine screening for protein Urine Microalbumin [facility] Start: 03-05-2023 Hemoglobin A1c measurement A1C [facility] Start: 03-05-2023 Hemoglobin A1c/Hemoglobin.total in Blood HBA1C [facility] Start: 02-25-2023 Hepatitis B screening URINE AL BUMIN:CREATININE RATIO [facility] Start: 02-25-2023 Hepatitis B surface antibody level LDL CHOLESTEROL [facility] Start: 01-29-2023 End: 03-31-2024 Cardiac event recording Cardiac event monitor Cardiac Services Routine Dizziness Expected: 01/29/2023, Expires: 03/31/2024 [facility] Work Phone: Comment on above: Expected: 01/29/2023 , Expires: 03/31/2024 Start: 01-15-2023 End: 01-15-2023 Patient encounter procedure 01/15/2023 Office Visit Cardiology Melanie Burciaga MD [address] [place] [address] [facility] Start: 01-14-2023 End: 01-14-2023 Patient encounter procedure 01/14/2023 Office Visit Cardiology Melanie Burciaga MD [address] [place] [address] [facility] Start: 11-23-2022 ADVANCE DIRECTIVE DISCUSSION ADVANCE DIRECTIVE DISCUSSION [facility] Start: 11-23-2022 DEPRESSION ASSESSMENT DEPRESSION ASS ESSMENT [facility] Start: 09-29-2022 End: 09-29-2022 Patient encounter procedure 09/29/2022 Office Visit Cardiology Melanie Burciaga MD [address] [place] [address] [facility] Start: 09-05-2022 End: 11-05-2022 Basic metabolic 2000 panel - Serum or Plasma BASIC METABOLIC PNL Lab Routine Controlled type 2 diabetes mellitus without complication, without long-term current use of insulin (HCC) Expected: 09/05/2022, Expires: 11/05/[address] [facility] Work Phone: Comment on above: Expected: 09/05/2022 , Expires: 11/05/2022 Start: 09-05-2022 End: 11-05-2022 Hemoglobin A1c/Hemoglobin.total in Blood HGB A1C Lab Routine Controlled type 2 diabetes mellitus without complication, without long-term current use of insulin (HCC) Expected: 09/05/2022, Expires: 11/05/[address] [facility] Work Phone: Comment on above: Expected: 09/05/2022 , Expires: 11/05/2022 Start: 08-27-2022 Hemoglobin A1c measurement A1C [facility] Start: 08-27-2022 Hemoglobin A1c/Hemoglobin.total in Blood HBA1C [facility] Start: 08-04-2022 End: 08-04-2022 Patient encounter procedure 08/04/2022 Appointment Cardiology Melanie Burciaga MD [address] [place] [address] [facility] Start: 07-24-2022 Influenza vaccination [facility] Start: 06-04-2022 SHINGRIX VACCINE (1 of 2) SHINGRIX VACCINE (1 of 2) [facility] Comment on above: Postponed from 12/05 (Declined at this time) Start: 03-17-2022 PTRECHADCAROLE, Provider : Roxane Steen, Status: Pen, Time: 11:00 AM JAMAR, Provider: Roxane Steen, Status: Pen, Time: 11:00 AM [facility] Work Phone: Start: 03-17-2022 End: 03-17-2022 Patient encounter procedure 03/17/2022 Office Visit Cardiology Chelly Quiroz CNP [address] [place] [address] [facility] Start: 03-14-2022 [email or web address], Provider : Becky Bauer, Status: Pen, Time: 10:00 AM PTFUADULT4, Provider: Becky Bauer, Status: Pen, Time: 10:00 AM [facility] Work Phone: Start: 03-13-2022 End: 05-13-2022 CELIAC SCREEN WITH REFLEX CELIAC SCREEN WITH REFLEX Lab Routine Bloating Weight loss Abdominal distension (gaseous) Generalized abdominal pain Expected: 03/13/2022, Expires: 05/13/[address] [facility] Work Phone: Comment on above: Expected: 03/13/2022 , Expires: 05/13/2022 Start: 03-10-2022 End: 05-10-2022 Helicobacter pylori IgG Ab [Presence] in Serum or Plasma by Immunoassay [facility] Work Phone: Comment on above: Expected: 03/10/2022 , Expires: 05/10/2022 Start: 03-10-2022 [email or web address], Provider : Becky Bauer, Status: Pen, Time: 10:45 AM PTFUADULT4, Provider: Becky Bauer, Status: Pen, Time: 10:45 AM [facility] Work Phone: Start: 03-07-2022 PTFUADULT4, Provider : Katya Alvarez, Status: Pen, Time: 10:45 AM PTFUADULT4, Provider: Katya Alvarez, Status: Pen, Time: 10:45 AM [facility] Work Phone: Start: 03-07-2022 PTFUADULT4, Provider : Sherlyn Isabel, Status: Pen, Time: 10:45 AM PTFUADULT4, Provider: Sherlyn Isabel, Status: Pen, Time: 10:45 AM [facility] Work Phone: Start: 03-06-2022 End: 05-06-2022 ALBUMIN/CREAT RATIO RND UR [facility] Work Phone: Comment on above: Expected: 03/06/2022 , Expires: 05/06/2022 Start: 03-05-2022 [email or web address], Provider : Sherlyn Isabel, Status: Pen, Time: 10:45 AM PTFUADULT4, Provider: Sherlyn Isabel, Status: Pen, Time: 10:45 AM [facility] Work Phone: Start: 02-28-2022 3 comp foot exam completed DIABETIC FOOT EXAM [facility] Start: 02-28-2022 PTFUADULT4, Provider : Sherlyn Isabel, Status: Pen, Time: 11:30 AM PTFUADULT4, Provider: Sherlyn Isabel, Status: Pen, Time: 11:30 AM [facility] Work Phone: Start: 04-06-2022 PTFUADULT4, Provider : Sherlyn Isabel, Status: Scott, Time: 10:45 AM PTFUADULT4, Provider: Sherlyn Isabel, Status: Scott, Time: 10:45 AM [facility] Work Phone: Start: 01-28-2022 COVID-19 VACCINE (4 - Booster for Pfizer series) COVID-19 VACCINE (4 - Booster for Pfizer series) [facility] Start: 11-25-2021 COVID-19 Vaccine (4 - Booster for Pfizer series) COVID-19 Vaccine (4 - Booster for Pfizer series) [facility] Start: 11-23-2021 ADVANCE DIRECTIVE DISCUSSION ADVANCE DIRECTIVE DISCUSSION [facility] Start: 11-23-2021 DEPRESSION ASSESSMENT DEPRESSION ASS ESSMENT [facility] Start: 07-31-2021 Hepatitis C antibody , confirmatory test DILATED RETINAL EXAM [facility] Start: 07-24-2021 Influenza vaccination Sequenti al Influenza Vaccine (#1) [facility] Start: 06-28-2021 Tetanus vaccination [facility] Start: 06-16-2021 COVID-19 Vaccine (3 - Booster for Pfizer series) COVID-19 Vaccine (3 - Booster for Pfizer series) [facility] Start: 01-17-2021 End: 01-17-2021 Appointment 01/17/2021 Appointment Cardiology Melanie Burciaga MD [address] [place] [address] [phone] [facility] Start: 10-30-2020 End: 10-30-2020 Appointment 10/30/2020 Appointment Radiology Melanie Burciaga MD [address] [place] [address] [phone] [facility] Start: 09-06-2020 End: 11-06-2020 24 Hour ECG Holter monitor - 24 hour Cardiac Services Routine Hypertrophic cardiomyopathy (HCC) Expected: 09/06/2020, Expires: 11/06/2020 [facility] Comment on above: Expected: 09/06/2020 , Expires: 11/06/2020 Start: 03-31-2020 History and physical examination, annual for health maintenance Wellness Visit [facility] Start: 09-06-2019 End: 09-06-2019 Office Visit 09/06/2019 Office Visit Cardiology Gael Nelson MD [address] [facility] [place] [address] [place] [address] [phone] [facility] Start: 09-01-2019 End: 09-01-2019 Treatment [facility] Start: 08-31-2019 End: 08-31-2019 Treatment [facility] Start: 08-29-2019 End: 08-29-2019 Treatment 08/29/2019 Treatment [facility] Start: 08-25-2019 End: 08-25-2019 Treatment 08/25/2019 Treatment [facility], Provider Not In [facility] Start: 08-24-2019 End: 08-24-2019 Treatment 08/24/2019 Treatment [facility], Provider Not In [facility] Start: 08-22-2019 End: 08-22-2019 Treatment 08/22/2019 Treatment [facility], Provider Not In [facility] Start: 08-18-2019 End: 08-18-2019 Treatment 08/18/2019 Treatment [facility], Provider Not In [facility] Start: 08-17-2019 End: 08-17-2019 Treatment 08/17/2019 Treatment [facility] Start: 08-15-2019 End: 08-15-2019 Treatment 08/15/2019 Treatment [facility], Provider Not In [facility] Start: 08-11-2019 End: 08-11-2019 Treatment 08/11/2019 Treatment [facility], Provider Not In [facility] Start: 08-10-2019 End: 08-10-2019 Treatment 08/10/2019 Treatment [facility], Provider Not In [facility] Start: 08-08-2019 End: 08-08-2019 Treatment [facility] Start: 08-04-2019 End: 08-04-2019 Treatment 08/04/2019 Treatment [facility] Start: 08-03-2019 End: 08-03-2019 Treatment 08/03/2019 Treatment [facility], Provider Not In [facility] Start: 08-01-2019 End: 08-01-2019 Treatment 08/01/2019 Treatment [facility] Start: 07-28-2019 End: 07-28-2019 Treatment 07/28/2019 Treatment [facility] Start: 07-27-2019 End: 07-27-2019 Treatment 07/27/2019 Treatment [facility] Start: 07-24-2019 Influenza vaccinatio n given SEQUENTIAL INFLUENZA VACCINE (#1) [facility] Start: 07-21-2019 End: 07-21-2019 Treatment 07/21/2019 Treatment [facility] Start: 07-24-2018 Influenza vaccination SEQUENTI AL INFLUENZA VACCINE (#1) [facility] Start: 09-04-2017 End: 09-04-2017 Appointment Appointment [facility] [place] Work Phone: Start: 08-05-2017 End: 08-05-2017 Colonoscopy flx dx w/collj spec when pfrmd Colonoscopy [facility] [place] [place] Work Phone: Start: 07-24-2017 Influenza vaccination SEQUENTI AL INFLUENZA VACCINE (#1) [facility] Work Phone: Start: 2014 Respiratory Syncytia l Virus Immunization: Risk, 60-74 Risk, or 75+ (1 - 1-dose 75+ series) Respiratory Syncytial Virus Immunization: Risk, 60-74 Risk, or 75+ (1 - 1-dose 75+ series) [facility] Start: 2014 RSV Vaccine (1 - 1-d ose 75+ series) RSV Vaccine (1 - 1-dose 75+ series) [facility] Start: 06-29-2011 Urine microalbumin profile [facility] Start: 2004 Fall risk assessment Falls Risk Asse ssment [facility] Start: 2004 Pneumococcal vaccination PNEUM OCOCCAL VACCINE AGE 65+ (1 of 2 - PCV13) [facility] Work Phone: Start: 2004 Pneumococcal Vaccine : Age 65+ (1 of 1 - PPSV23) Pneumococcal Vaccine: Age 65+ (1 of 1 - PPSV23) [facility] Start: 1999 Hepatitis B Vaccine (1 of 3 - Risk 3-dose series) Hepatitis B Vaccine (1 of 3 - Risk 3-dose series) [facility] Start: 1999 RSV Vaccine (1 - 1-d ose 60+ series) RSV Vaccine (1 - 1-dose 60+ series) [facility] Start: 1999 Zoster vacc, sc ZOSTER VACCINE [facility] Work Phone: Start: 1989 Administration of he rpes zoster vaccine Zoster Vaccines (1 of 2) [facility] Start: 1989 SHINGRIX VACCINE (1 of 2) SHINGRIX VACCINE (1 of 2) [facility] Start: 1989 ZOSTER VACCINES (1 of 2) ZOSTER VACC SAMUEL (1 of 2) [facility] Start: 1957 Anxiety Screening Anxiety Screening [facility] Start: 1957 Depression Screening Depression Scre ening [facility] Start: 1955 COVID-19 Vaccine (1 of 2) COVID-19 Vaccine (1 of 2) [facility] Start: 1951 Adolescent depressio n screening assessment Depression Screening (PHQ9) [facility] Start: 1951 Depression screening using PHQ-9 (Patient Health Questionnaire 9) score [facility] Start: 1949 Diabetic foot examination [facility] Start: 1949 Glaucoma screening [facility] Start: 1949 Microalbumin measurement, urine, quantitative Urine Microalbumin [facility] Start: 1949 Ophthalmic examinati on and evaluation Ophthalmology Exam [facility] Start: 1949 Urine screening for protein Urine (micro)albumin/creatinin e ratio - Diabetes [facility] Start: 1942 History and physical examination, annual for health maintenance Wellness Visit [facility] Start: 1942 Medicare Wellness Visit Medicare Wel lness Visit [facility] Start: 1939 Fall risk assessment Falls Risk Asse ssment [facility] Start: 1939 Hemoglobin A1c measurement A1C [facility] Start: 1939 Physical therapy management PT PLAN OF CARE [facility] Start: 1939 Tetanus vaccination [facility] Work Phone: End: 08-05-2024 12 lead ECG ECG 12 lead ECG Routine RBBB (right bundle branch block with left anterior fascicular block) 1 Occurrences starting 08/05/2023 until 08/05/2024 [facility] Work Phone: Comment on above: 1 Occurrences starti ng 08/05/2023 until 08/05/2024 12 lead ECG ECG 12 Lead ECG Routine Primary hypertension 10/28/2024 11:18 AM EST [facility] Work Phone: End: 01-17-2021 Cardiac event recording Cardiac event monitor Cardiac Services Routine Palpitations Once for 1 Occurrences starting 01/17/2021 until 01/17/2021 [facility] Comment on above: Once for 1 Occurrenc es starting 01/17/2021 until 01/17/2021 End: 04-12-2023 Ct abdomen & pelvis w/contrast material CT ABD/PEL W IVCON Radiology Routine Bloating Weight loss Abdominal distension (gaseous) Generalized abdominal pain 1 Occurrences starting 03/13/2022 until 04/12/[address] [facility] Work Phone: Comment on above: 1 Occurrences starti ng 03/13/2022 until 04/12/2023 CT Chest WO contrast CT CHEST WO IVCON Radiology Routine 10/24/2024 1:24 PM [facility] [employer] [facility] Work Phone: End: 11-09-2023 Ct thorax w/o contrast material CT CHEST WO IVCON Radiology Routine 1 Occurrences starting 10/10/2022 until 11/09/[address] [facility] Work Phone: Comment on above: 1 Occurrences starti ng 10/10/2022 until 11/09/2023 Ct thorax w/o contra st material CT CHEST WO IVCON Radiology Routine Interstitial pulmonary disease (HCC) 09/25/2023 1:46 PM EDT [facility] Work Phone: End: 09-06-2020 ECHOCARDIOGRAM STRESS TEST Echocardiogram stress test Echocardiography Routine 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) Other ill-defined heart diseases Orthostatic dizziness 1 Occurrences starting 09/06/2019 until 09/06/2020 [facility] Comment on above: 1 Occurrences starti ng 09/06/2019 until 09/06/2020 End: 09-01-2023 Echocardiography Echocardiogram complete Echocardiography Routine Essential hypertension Hypertrophic non-obstructive cardiomyopathy (HCC) 1 Occurrences starting 07/02/2022 until 09/01/2023 [facility] Work Phone: Comment on above: 1 Occurrences starti ng 07/02/2022 until 09/01/2023 End: 04-12-2025 Echocardiography Echocardiogram complete Echocardiography Routine Hypertrophic cardiomyopathy (HCC) 1 Occurrences starting 02/11/2024 until 04/12/2025 [facility] Work Phone: Comment on above: 1 Occurrences starti ng 02/11/2024 until 04/12/2025 End: 08-19-2018 Holter monitor - 24 hour Holter monitor - 24 hour Routine Hypertrophic cardiomyopathy (HCC) Once for 1 Occurrences starting 08/19/2018 until 08/19/2018 [facility] Comment on above: Once for 1 Occurrenc es starting 08/19/2018 until 08/19/2018 Holter monitor - 24 hour Holter monitor - 24 hour Routine Hypertrophic cardiomyopathy (HCC) 08/19/2018 11:53 AM EDT [facility] End: 04-02-2023 LUNG DIFFUSION CAPACITY (DLCO) LUNG DIFFUSION CAPACITY (DLCO) PFT Routine ILD (interstitial lung disease) (HCC) 1 Occurrences starting 03/03/2022 until 04/02/[address] [facility] Work Phone: Comment on above: 1 Occurrences starti ng 03/03/2022 until 04/02/2023 End: 04-30-2024 LUNG DIFFUSION CAPACITY (DLCO) LUNG DIFFUSION CAPACITY (DLCO) PFT Routine Interstitial pulmonary disease (HCC) 1 Occurrences starting 04/01/2023 until 04/30/[address] [facility] Work Phone: Comment on above: 1 Occurrences starti ng 04/01/2023 until 04/30/2024 End: 05-21-2025 LUNG DIFFUSION CAPACITY (DLCO) LUNG DIFFUSION CAPACITY (DLCO) PFT Routine ILD (interstitial lung disease) (HCC) 1 Occurrences starting 04/21/2024 until 05/21/2025 [facility] Comment on above: 1 Occurrences starti ng 04/21/2024 until 05/21/2025 End: 07-09-2026 LUNG DIFFUSION CAPACITY (DLCO) LUNG DIFFUSION CAPACITY (DLCO) PFT Routine ILD (interstitial lung disease) (HCC) 1 Occurrences starting 06/09/2025 until 07/09/2026 [facility] Comment on above: 1 Occurrences starti ng 06/09/2025 until 07/09/2026 End: 04-02-2023 LUNG VOLUMES LUNG VOLUMES PFT Routine ILD (interstitial lung disease) (HCC) 1 Occurrences starting 03/03/2022 until 04/02/[address] [facility] Work Phone: Comment on above: 1 Occurrences starti ng 03/03/2022 until 04/02/2023 End: 04-30-2024 LUNG VOLUMES LUNG VOLUMES PFT Routine Interstitial pulmonary disease (HCC) 1 Occurrences starting 04/01/2023 until 04/30/[address] [facility] Work Phone: Comment on above: 1 Occurrences starti ng 04/01/2023 until 04/30/2024 End: 05-21-2025 LUNG VOLUMES LUNG VOLUMES PFT Routine ILD (interstitial lung disease) (HCC) 1 Occurrences starting 04/21/2024 until 05/21/2025 [facility] Comment on above: 1 Occurrences starti ng 04/21/2024 until 05/21/2025 End: 07-09-2026 LUNG VOLUMES LUNG VOLUMES PFT Routine ILD (interstitial lung disease) (HCC) 1 Occurrences starting 06/09/2025 until 07/09/2026 [facility] Comment on above: 1 Occurrences starti ng 06/09/2025 until 07/09/2026 End: 10-11-2021 MR Cardiac Morphology With And Without Contrast with Velocity Flow MR Cardiac Morphology With And Without Contrast with Velocity Flow Imaging Routine Hypertrophic cardiomyopathy (HCC) 1 Occurrences starting 10/11/2020 until 10/11/2021 [facility] Comment on above: 1 Occurrences starti ng 10/11/2020 until 10/11/2021 End: 05-21-2025 SPIROMETRY BASELINE ONLY SPIROMETRY BASELINE ONLY PFT Routine ILD (interstitial lung disease) (HCC) 1 Occurrences starting 04/21/2024 until 05/21/[address] [facility] Work Phone: Comment on above: 1 Occurrences starti ng 04/21/2024 until 05/21/2025 End: 07-09-2026 SPIROMETRY BASELINE ONLY SPIROMETRY BASELINE ONLY PFT Routine ILD (interstitial lung disease) (HCC) 1 Occurrences starting 06/09/2025 until 07/09/2026 [facility] Comment on above: 1 Occurrences starti ng 06/09/2025 until 07/09/2026 End: 04-02-2023 SPIROMETRY WITH DILATOR IF OBSTRUCTED SPIROMETRY WITH DILATOR IF OBSTRUCTED PFT Routine ILD (interstitial lung disease) ([facility]) 1 Occurrences starting 03/03/2022 until 04/02/[address] [facility] Work Phone: Comment on above: 1 Occurrences starti ng 03/03/2022 until 04/02/2023 SPIROMETRY WITH DILA TOR IF OBSTRUCTED SPIROMETRY WITH DILATOR IF OBSTRUCTED PFT Routine ILD (interstitial lung disease) ([facility]) 10/10/2022 10:56 AM EST [facility] Work Phone: End: 04-30-2024 SPIROMETRY WITH DILATOR IF OBSTRUCTED SPIROMETRY WITH DILATOR IF OBSTRUCTED PFT Routine Interstitial pulmonary disease (HCC) 1 Occurrences starting 04/01/2023 until 04/30/[address] [facility] Work Phone: Comment on above: 1 Occurrences starti ng 04/01/2023 until 04/30/2024 End: 04-09-2024 XR RIBS/CHEST 3V AP RIB/OBLS/CXR RIGHT XR RIBS/CHEST 3V AP RIB/OBLS/CXR RIGHT Radiology Routine Atypical chest pain 1 Occurrences starting 03/11/2023 until 04/09/[address] [facility] Work Phone: Comment on above: 1 Occurrences starti ng 03/11/2023 until 04/09/2024 XR RIBS/CHEST 3V AP RIB/OBLS/CXR RIGHT XR RIBS/CHEST 3V AP RIB/OBLS/CXR RIGHT Radiology Routine Atypical chest pain 03/11/2023 1:00 PM EDT [facility] Work Phone: [facility] NEGATED: Highlighted row has been ruled out! Planned Goals not documented [facility] Work Phone: Immunizations Immunization Date Immunization Notes Care Provider [facility] 09-26-2024 COVID-19 vaccine, ag e 12+ yr (PFIZER-BIONTECH COMIRNATY) Pulm Wstr Work Phone: [facility] 07-28-2024 influenza, high dose seasonal, preservative-free Romelia Brian [employer] Work Phone: [facility] 07-28-2024 influenza virus vaccine, unspecified formulation Melanie Burciaga MD Work Phone: [facility] 09-04-2023 influenza (HD-IIV4) vaccine, age 65+ yr, high dose, quadrivalent, PF (FLUZONE HIGH-DOSE) Immunization [place] Work Phone: [facility] Work Phone: 09-04-2023 influenza virus vaccine, unspecified formulation Melanie Burciaga MD Work Phone: [facility] 08-21-2022 COVID-19 booster vaccine, age 12+ yr, bivalent (PFIZER-BIONTECH) Alonso Wheat MD Work Phone: [facility] Work Phone: 07-29-2022 influenza, high-dose , quadrivalent vaccine (FLUZONE HIGH DOSE QUADRIVALENT) Mi Nurse Work Phone: [facility] Work Phone: 09-30-2021 COVID-19 original vaccine, age 12+ yr, monovalent (PFIZER-BIONTECH - PURPLE TOP) Melanie Kahn PA-C Work Phone: [facility] Work Phone: 08-24-2021 influenza, high-dose , quadrivalent vaccine (FLUZONE HIGH DOSE QUADRIVALENT) Svetlana Jaeger MD Work Phone: [facility] Work Phone: 01-17-2021 COVID-19 vaccine, ag e 12+ yr (PFIZER-BIONTECH - PURPLE TOP) Svetlana Jaeger MD Work Phone: [facility] Work Phone: 12-21-2020 COVID-19 vaccine, ag e 12+ yr (PFIZER-BIONTECH - PURPLE TOP) Svetlana Jaeger MD Work Phone: [facility] Work Phone: 08-25-2020 influenza, high-dose , quadrivalent vaccine (FLUZONE HIGH DOSE QUADRIVALENT) Svetlana Jaeger MD Work Phone: [facility] 08-05-2019 influenza, high dose seasonal, preservative-free Svetlana Jaeger MD Work Phone: [facility] Work Phone: 08-18-2018 influenza, high dose tali, preservative-free Svetlana Jaeger MD Work Phone: [facility] Work Phone: 07-30-2017 influenza, high dose tali, preservative-free Svetlana Jaeger MD Work Phone: [facility] 08-06-2016 influenza, high dose seasonal, preservative-free Svetlana Jaeger MD Work Phone: [facility] 09-27-2015 pneumococcal conjuga te vaccine, 13 valent Svetlana Jaeger MD Work Phone: [facility] Work Phone: 08-23-2015 influenza, high dose seasonal, preservative-free Svetlana Jaeger MD Work Phone: [facility] 08-31-2014 influenza, seasonal, injectable Svetlana Jaeger MD Work Phone: [facility] Work Phone: 09-02-2013 influenza virus vaccine, unspecified formulation Svetlana Jaeger MD Work Phone: [facility] 09-02-2012 influenza virus vaccine, unspecified formulation Svetlana Jaeger MD Work Phone: [facility] Work Phone: 08-29-2011 influenza virus vaccine, unspecified formulation Svetlana Jaeger MD Work Phone: [facility] Work Phone: 06-28-2011 tetanus and diphther ia toxoids, adsorbed, preservative free, for adult use (2 Lf of tetanus toxoid and 2 Lf of diphtheria toxoid) Svetlana Jaeger MD Work Phone: [facility] 08-22-2010 influenza virus vaccine, unspecified formulation Svetlana Jaeger MD Work Phone: [facility] Work Phone: 11-05-2009 novel [id number], all formulations Svetlana Jaeger MD Work Phone: [facility] Work Phone: 08-20-2009 influenza virus vaccine, unspecified formulation Svetlana Jaeger MD Work Phone: [facility] 10-05-2008 influenza virus vaccine, unspecified formulation Svetlana Jaeger MD Work Phone: [facility] Work Phone: 09-27-2007 influenza virus vaccine, unspecified formulation Svetlana Jaeger MD Work Phone: [facility] Work Phone: 10-01-2006 influenza virus vaccine, unspecified formulation Svetlana Jaeger MD Work Phone: [facility] Work Phone: 06-23-2006 tetanus and diphther ia toxoids, adsorbed, preservative free, for adult use (2 Lf of tetanus toxoid and 2 Lf of diphtheria toxoid) Svetlana Jaeger MD Work Phone: [facility] Work Phone: 10-28-2005 pneumococcal polysaccharide vaccine, 23 valent Svetlana Jaeger MD Work Phone: [facility] Work Phone: 10-01-2005 influenza virus vaccine, unspecified formulation Svetlana Jaeger MD Work Phone: [facility] Work Phone: Payers Date Payer Category Payer Self-pay [id number] 2016 Unknown [employer] xxxxxxxxxxxx 2016-Present [id number] 2006 [facility] [id number] 2006 Unknown [id number] 2006 Unknown 2006 Unknown [id number] 2004 Medicare MEDICARE MEDICAR E PART A & B xxxxxxxxxxx 2004-Present [place] xxxxxxxxxxx [id number] 2004 Medicare [id number] 2004 Medicare [id number] 2004 Medicare [id number] 1939 Unknown [id number] 1939 Unknown [id number] 1939 Unknown [id number] 1939 Unknown [id number] 1939 Unknown [id number] 1939 Unknown [id number] 903 Medicare [id number] Unknown [id number] Unknown [id number] 462 Unknown [id number] 462 Unknown [id number] Unknown [id number] Social History Date Type Detail Facility Start: 08-20-2017 End: 10-10-2022 Tobacco smoking status NHIS Never smoker [facility] Work Phone: Start: 1940 Sex Assigned At Not on file [facility] Work Phone: Start: 08-19-2018 End: 06-05-2025 Alcohol intake Current non-drinker of alcohol (finding) [facility] Start: 10-11-2020 End: 10-10-2022 Tobacco use and exposure Never used [facility] Start: 02-21-2022 End: 01-23-2023 Exposure to SARS-CoV-2 (event) Not sure [facility] Exposure to SARS-CoV -2 (event) Unable to assess [facility] Start: 01-24-2022 End: 06-09-2025 Alcohol intake Ex-drinker (finding) [facility] Start: 03-09-2020 End: 03-04-2023 History SDOH Alcohol Frequency 1 [facility] Start: 03-30-2020 History SDOH Alcohol Std Drinks 98 [facility] Start: 03-30-2020 History SDOH Social Connections Phone 4 [facility] Start: 04-07-2020 End: 03-04-2023 History SDOH Social Connections Get Together 2 [facility] Start: 12-28-2019 End: 03-04-2023 History SDOH Social Connections Jew 3 [facility] Start: 12-28-2019 End: 03-04-2023 History SDOH Physical Activity DPW 0 [facility] Start: 05-17-2020 End: 03-04-2023 History SDOH Financial 5 [facility] Start: 12-28-2019 Education 21 [facility] Start: 1940 Sex Assigned At Male [facility] Work Phone: Start: 06-03-2021 Tobacco smoking status NHIS Unknown if ever smoked [facility] Work Phone: Start: 07-16-2020 None [facility] Start: 07-16-2020 Spouse/ Significant Other [facility] Start: 07-16-2020 Non-smoker [facility] Start: 01-29-2023 End: 04-01-2023 History of Social function [facility] Start: 01-29-2023 End: 04-01-2023 Tobacco use panel [facility] Start: 08-19-2018 Gender identity Identifies as male gender (finding) [facility] Start: 08-19-2018 Sexual orientation Heterosexual (finding) [facility] Do you belong to any clubs or organizations such as synagogue groups, unions, fraternal or athletic groups, or school groups? Yes [facility] Are you now , , , , never or living with a partner? [facility] How often to you hav e a drink containing alcohol? Never [facility] How many standard dr inks containing alcohol do you have on a typical day? Patient does not drink [facility] Do you feel stress - tense, restless, nervous, or anxious, or unable to sleep at night because your mind is troubled all the time - these days [OSQ] Not at all [facility] (I/We) worried wheth er (my/our) food would run out before (I/we) got money to buy more. Never true [facility] In the past 12 month s, was there a time when you were not able to pay the mortgage or rent on time? No [facility] Medical Equipment Procedure Code Equipment Code Equipment Original Text Equipment Identifier Dates [id number], [id number], [id number], [id number], [id number] Start: 12-06-2021 End: 06-02-2025 Comment on above: Test blood sugar(s) 1 times daily. Dx: Type 2 DM - Controlled E11.9 Insulin: No Test blood sugars 1 time daily. Dx: Type 2 DM Controlled E11.9 Insulin: No Test blood sugar(s) one times daily. Dx: Type 2 DM - Controlled E11.9 Insulin: No Functional Status Date Assessment Result Facility 07-30-2017 Are you deaf, or do you have serious difficulty hearing No 07/30/2017 8:49 AM Alonso Miller MD No [facility] 07-30-2017 Are you blind, or do you have serious difficulty seeing, even when wearing glasses No 07/30/2017 8:49 AM Alonso Miller MD No [facility] 07-30-2017 Do you have serious difficulty walking or climbing stairs No 07/30/2017 8:49 AM Alonso Miller MD No [facility] 07-30-2017 Do you have difficul ty dressing or bathing No 07/30/2017 8:49 AM Alonso Miller MD No [facility] 07-30-2017 Because of a physica l, mental, or emotional condition, do you have difficulty doing errands alone such as visiting a physician's office or shopping No 07/30/2017 8:49 AM EDT Alonso Wheat MD No [facility] NEGATED: Highlighted row Functional performance Functional status health issues are not documented Disease [facility] Work Phone: Mental Status Date Assessment Result Facility 07-30-2017 Because of a physical, mental, or emotional condition, do you have serious difficulty concentrating, remembering, or making decisions No 07/30/2017 8:49 AM EDT Alonso Wheat MD No [facility] NEGATED: Highlighted row Cognitive function [Interpretation] Cognitive status health issues are not documented Disease [facility] Work Phone: Clinical Notes 07-25-2021 to 06-09-2025 Patient InstructionsShelby Grimes APRN.CNP - 06/09/2025 2:10 PM EDTTelephone Encounter - Ines Dumont LPN - 06/05/2025 3:15 PM EDTPatient InstructionsPatient Instructions Note Date & Type Note Facility 06-09-2025 Instructions Shelby Grimes APRN.CNP - 06/09/2025 2:27 PM EDT Plan to repeat pulmonary function testing and chest CT in October with follow-up visit after. Please call or let the office know if you notice worsening symptoms, shortness of breath, worsening cough, etc. Continue to use Mucinex and flutter valve. documented in this encounter [facility] 06-09-2025 Note HNO ID: [id number] Author: SHELBY GRIMES APRN.CNP Service: ? Author Type: Nurse Practitioner Type: Progress Notes Filed: 06/09/2025 14:39 Note Text: Pulmonary Medicine Patients name: Ayleen Millan PCP: Alonso Wheat MD CC: follow-up HPI: Ayleen Millan is a 84 year old male non-smoker with PMH significant for HTN, PAD, GERD, AVM with GIB, prostate cancer s/p XRT, DM, HOCM, bronchiectasis, and pulmonary fibrosis. ILD dates back to 2012. No known drug exposures, occupational exposures, autoimmune disorder. Has intermittent wheezing but intolerant of CJ/LABA due to tachycardia. Cannot afford LAMA. Wheezing improved with use of acapella device and nebulized ipratropium bromide. DESIREE 10/2024, had updated chest imaging which showed stability in fibrotic changes. Not currently on inhaled therapy. He presents today for follow-up with his . Overall reports no change in symptoms since his last visit. Feels well. Denies significant cough, chest tightness or shortness of breath. Notes wheezing often, most significantly at night. He is not bothered by it but will keep his awake. No recent fevers, chills, or night sweats. No unintended weight loss. No recent hospitalizations or ED visits or upper respiratory infections. Has flutter valve and uses it intermittently. Uses Mucinex BID. Rarely uses Atrovent. PAST MEDICAL HISTORY Diagnosis Date Allergic rhinitis, cause unspecified Arthritis AVM (arteriovenous malformation) of colon with hemorrhage 08/13/2017 Benign prostatic hyperplasia with lower urinary tract symptoms 03/08/2013 Bundle branch block, unspecified Carotid disease, bilateral 08/30/2015 CHR SOLAR SKIN DAMAGE NOS 08/21/2008 Controlled type 2 diabetes mellitus without complication, without long-term current use of insulin ([facility]) 10/04/2019 Degenerative tear of acetabular labrum of right hip 07/19/2020 Diverticulosis of colon (without mention of hemorrhage) 08/13/2017 Duplicated ureter, 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 Nelson ILD (interstitial lung disease) ([facility]) 08/13/2020 Impaired fasting glucose 08/29/2011 Lumbago 12/11/2010 Orthostatic dizziness 10/04/2019 Other and unspecified disc disorder of cervical region 10/28/2005 Other and unspecified hyperlipidemia Prostate cancer ([facility]) 05/30/2016 Radiation therapy Renal cyst 09/29/2013 Unspecified gastritis and gastroduodenitis Allergies: Albuterol Intolerance Comment:tachycardia Tramadol Itching Lipitor [Atorvastat* Intolerance Comment:leg cramps Statins [Statins-Hm* Intolerance Comment:leg cramping with most statins Vytorin 09/01 [Ezet* Intolerance Comment:leg cramping Medication List Accurate as of June 09, 2025 2:10 PM. If you have any questions, ask your nurse or doctor. CONTINUE taking these medications aspirin, enteric coated 81 mg EC tablet Commonly known as: ASPIRIN, ENTERIC COATED atenolol 50 mg tablet Commonly known as: TENORMIN Take 1 tablet by mouth once daily. blood sugar diagnostic test strip Commonly known as: BLOOD GLUCOSE TEST Test blood sugar(s) 1 times daily. Dx: Type 2 DM - Controlled E11.9 Insulin: No calcium carbonate 600 mg-cholecalciferol 200 units 600 mg-5 mcg (200 unit) Tab CENTRUM SILVER Tab Generic drug: Ehzhevjkucqdt-Hqmjmqqa-Vonmho finasteride 5 mg tablet Commonly known as: PROSCAR furosemide 20 mg tablet Commonly known as: LASIX guaiFENesin 600 mg 12 hr tablet Commonly known as: MUCINEX Take 1 tablet by mouth two times a day. HYDROcodone-acetaminophen 5-325 mg per tablet Commonly known as: NORCO ipratropium 0.02 % nebulizer solution Commonly known as: ATROVENT Use 2.5 mL via nebulizer three times a day. OVER 5-15 MINUTES FOR WHEEZING OR SHORTNESS OF BREATH * Lancets Commonly known as: ONETOUCH ULTRASOFT LANCETS Test blood sugars 1 time daily. Dx: Type 2 DM Controlled E11.9 Insulin: No * Lancets Test blood sugar(s) one times daily. Dx: Type 2 DM - Controlled E11.9 Insulin: No Lancing Device Misc 1 Each once daily. lisinopril 40 mg tablet Commonly known as: ZESTRIL lovastatin 40 mg tablet Take 2 tablets by mouth daily at bedtime. For cholesterol. metFORMIN ER 500 mg 24 hr tablet Commonly known as: GLUCOPHAGE XR Take 2 tablets by mouth daily with breakfast. Mucus Clearing Device Nadir Provide mucus clearing device NORVASC 2.5 mg tablet Generic drug: amLODIPine omeprazole 40 mg capsule Commonly known as: PriLOSEC Take 1 capsule by mouth two times a day. polyethylene glycol 3350 17 gram/dose powder Take 17 g by mouth once daily. * This list has 2 medication(s) that are the same as other medications prescribed for you. Read the directions carefully, an (more content not included)... [facility] 06-09-2025 History of Present illness Narrative Images from the original note were not included. Pulmonary Medicine Patients name: Ayleen Millan PCP: Alonso Wheat MD CC: follow-up HPI: Ayleen Millan is a 84 year old male non-smoker with PMH significant for HTN, PAD, GERD, AVM with GIB, prostate cancer s/p XRT, DM, HOCM, bronchiectasis, and pulmonary fibrosis. ILD dates back to 2012. No known drug exposures, occupational exposures, autoimmune disorder. Has intermittent wheezing but intolerant of CJ/LABA due to tachycardia. Cannot afford LAMA. Wheezing improved with use of acapella device and nebulized ipratropium bromide. DESIREE 10/2024, had updated chest imaging which showed stability in fibrotic changes. Not currently on inhaled therapy. He presents today for follow-up with his . Overall reports no change in symptoms since his last visit. Feels well. Denies significant cough, chest tightness or shortness of breath. Notes wheezing often, most significantly at night. He is not bothered by it but will keep his awake. No recent fevers, chills, or night sweats. No unintended weight loss. No recent hospitalizations or ED visits or upper respiratory infections. Has flutter valve and uses it intermittently. Uses Mucinex BID. Rarely uses Atrovent. PAST MEDICAL HISTORY Diagnosis Date Allergic rhinitis, cause unspecified Arthritis AVM (arteriovenous malformation) of colon with hemorrhage 08/13/2017 Benign prostatic hyperplasia with lower urinary tract symptoms 03/08/2013 Bundle branch block, unspecified Carotid disease, bilateral 08/30/2015 CHR SOLAR SKIN DAMAGE NOS 08/21/2008 Controlled type 2 diabetes mellitus without complication, without long-term current use of insulin (HCC) 10/04/2019 Degenerative tear of acetabular labrum of right hip 07/19/2020 Diverticulosis of colon (without mention of hemorrhage) 08/13/2017 Duplicated ureter, 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 Calnon ILD (interstitial lung disease) ([facility]) 08/13/2020 Impaired fasting glucose 08/29/2011 Lumbago 12/11/2010 Orthostatic dizziness 10/04/2019 Other and unspecified disc disorder of cervical region 10/28/2005 Other and unspecified hyperlipidemia Prostate cancer ([facility]) 05/30/2016 Radiation therapy Renal cyst 09/29/2013 Unspecified gastritis and gastroduodenitis Allergies: Albuterol Intolerance Comment:tachycardia Tramadol Itching Lipitor [Atorvastat* Intolerance Comment:leg cramps Statins [Statins-Hm* Intolerance Comment:leg cramping with most statins Vytorin 09/01 [Ezet* Intolerance Comment:leg cramping Medication List Accurate as of June 09, 2025 2:10 PM. If you have any questions, ask your nurse or doctor. CONTINUE taking these medications aspirin, enteric coated 81 mg EC tablet Commonly known as: ASPIRIN, ENTERIC COATED atenolol 50 mg tablet Commonly known as: TENORMIN Take 1 tablet by mouth once daily. blood sugar diagnostic test strip Commonly known as: BLOOD GLUCOSE TEST Test blood sugar(s) 1 times daily. Dx: Type 2 DM - Controlled E11.9 Insulin: No calcium carbonate 600 mg-cholecalciferol 200 units 600 mg-5 mcg (200 unit) Tab CENTRUM SILVER Tab Generic drug: Koimterrghzsf-Fxmxrsyf-Fyfmvh finasteride 5 mg tablet Commonly known as: PROSCAR furosemide 20 mg tablet Commonly known as: LASIX guaiFENesin 600 mg 12 hr tablet Commonly known as: MUCINEX Take 1 tablet by mouth two times a day. HYDROcodone-acetaminophen 5-325 mg per tablet Commonly known as: NORCO ipratropium 0.02 % nebulizer solution Commonly known as: ATROVENT Use 2.5 mL via nebulizer three times a day. OVER 5-15 MINUTES FOR WHEEZING OR SHORTNESS OF BREATH * Lancets Commonly known as: ONETOUCH ULTRASOFT LANCETS Test blood sugars 1 time daily. Dx: Type 2 DM Controlled E11.9 Insulin: No * Lancets Test blood sugar(s) one times daily. Dx: Type 2 DM - Controlled E11.9 Insulin: No Lancing Device Misc 1 Each once daily. lisinopril 40 mg tablet Commonly known as: ZESTRIL lovastatin 40 mg tablet Take 2 tablets by mouth daily at bedtime. For cholesterol. metFORMIN ER 500 mg 24 hr tablet Commonly known as: GLUCOPHAGE XR Take 2 tablets by mouth daily with breakfast. Mucus Clearing Device Nadir Provide mucus clearing device NORVASC 2.5 mg tablet Generic drug: amLODIPine omeprazole 40 mg capsule Commonly known as: PriLOSEC Take 1 capsule by mouth two times a day. polyethylene glycol 3350 17 gram/dose powder Take 17 g by mouth once daily. * This list has 2 medication(s) that are the same as other medications prescribed for you. Read the directions carefully, and ask your doctor or other care provider to review them with you. DATA: I personally reviewed and analyzed all labs, radiographs and available pulmonary function testing PFT: 10/2024 Spirometry is normal. Decrease in TLC indicates restriction. The diffusion capacity (uncorrected for hemoglobin) is normal. CT Chest: 10/2024 IMPRESSION: Stable bilateral nodules. No new or enlarging nodules identified. Reticular opacities in the bilateral lower lobes with traction bronchiolectasis, unchanged compared to prior study. Remote granulomatous disease. Nuclear Technologist: JUAN DIEGO Transcribe Date/Time: Oct 27 2024 10:03A Dictated by : GEORGINA PUENTE MD This examination was interpreted and the report reviewed and electronically signed by: GEORGINA PUENTE MD on Oct 27 2024 4:17PM EST RESULT: Limitations: None. Lines, tubes, and devices: None. Lung parenchyma and airways: The central airways are patent. A few stable pulmonary nodules visualized. For example, there is a 5.5 mm nodule in the lingula, series 15 image 116. A 4 mm nodule in the medial right lower lobe, series 15 image 195. More inferiorly seen is a tiny 1-2 mm nodule in the right lower lobe, series 15 image 207. There is a questionable elongated nodule along the right major fissure, series 15 image 157, unchanged. No new nodules identified. No masses. Mild reticulations noted in the bilateral lower lobes along the medial and posterior aspects, with traction bronchiolectasis. No honeycombing. No significant architectural distortion. Stable atelectasis in the right middle lobe. Pleural space: No pleural effusion. No pleural thickening. Review of Systems Constitutional: Negative for activity change, appetite change, fever and unexpected weight change. HENT: Negative for congestion, postnasal drip and sinus pressure. Respiratory: Positive for wheezing. Negative for cough, chest tightness and shortness of breath. Cardiovascular: Negative for chest pain, palpitations and leg swelling. BP 120/62 Pulse 63 Resp 17 Wt 96.6 kg (213 lb) SpO2 95% BMI 32.15 kg/m Physical Exam Vitals reviewed. Constitutional: General: He is not in acute distress. Appearance: Normal appearance. He is not ill-appearing. HENT: Head: Normocephalic. Cardiovascular: Rate and Rhythm: Normal rate and regular rhythm. Heart sounds: Murmur heard. Pulmonary: Effort: Pulmonary effort is normal. No respiratory distress. Breath sounds: No wheezing or rhonchi. Comments: B/l lower lobe crackles Musculoskeletal: Right lower leg: No edema. Left lower leg: No edema. Lymphadenopathy: Cervical: No cervical adenopathy. Skin: General: Skin is warm and dry. Capillary Refill: Capillary refill takes less than 2 seconds. Neurological: General: No focal deficit present. Mental Status: He is alert. ASSESSMENT/PLAN: 1. ILD (interstitial lung disease) (HCC) - ICD9: 515, ICD10: J84.9 (primary diagnosis) - no notable change in symptoms - due for annual surveillance in October. Update chest CT and PFT. - CT CHEST WO IVCON - SPIROMETRY BASELINE ONLY - LUNG VOLUMES - LUNG DIFFUSION CAPACITY (DLCO) 2. Bronchiectasis without complication (HCC) - ICD9: 494.0, ICD10: J47.9 - Symptoms controlled - continue mucinex, can try using flutter valve more frequently. F/u 5 months Portions of this documentation were copied and pasted from previous office visit notes in order to provide a cohesive continuity of the history. The note has been reviewed and edited and updated as necessary. Shelby Grimes APRN.CHELSY I spent a total of 21 minutes on the date of the service which included preparing to see the patient, [id number] patient care, completing clinical documentation, performing a medically appropriate examination, counseling and educating the patient/family/caregiver, and ordering medications, tests, or procedures. documented in this encounter [facility] 06-05-2025 Telephone encounter Note Patient has been identified by name and date of : Yes Patient phones for refill(s): Requested Prescriptions Pending Prescriptions Disp Refills blood sugar diagnostic (BLOOD GLUCOSE TEST) test strip 50 strip 11 Sig: Test blood sugar(s) 1 times daily. Dx: Type 2 DM - Controlled E11.9 Insulin: No Date of last office visit in primary care: 03/21/2025 Date of next office visit in primary care: 09/14/2025 Please advise. Thank you. Ines Dumont LPN. [facility] 06-05-2025 Miscellaneous Notes Patient has been identified by name and date of : Yes Patient phones for refill(s): Requested Prescriptions Pending Prescriptions Disp Refills blood sugar diagnostic (BLOOD GLUCOSE TEST) test strip 50 strip 11 Sig: Test blood sugar(s) 1 times daily. Dx: Type 2 DM - Controlled E11.9 Insulin: No Date of last office visit in primary care: 03/21/2025 Date of next office visit in primary care: 09/14/2025 Please advise. Thank you. Ines Dumont LPN. documented in this encounter [facility] 06-05-2025 Instructions Bartolome Bradley RN - 06/05/2025 12:12 PM EDT Thank you for your visit today. Please don't hesitate to call me at [phone] or send a [employer] message with any questions that you may have. How to contact your Care Team: Provider: Dr. Cee Burciaga Nurse: Lala Bradley RN MA: Scott Marin Fax: In case of an emergency please call 911. REFILLS: When in need for refills please call your care team or the office at [phone]. Please allow for at least 48 hours for your doctor to refill your medication. Please include medication name, pharmacy name, and specify 30-day or 90-day supply. Please check with your pharmacy within 24 hours of request for your refill. You must follow up as directed to continue current refills. Thank you! FOR YOUR NEXT APPOINTMENT WITH DR. BURCIAGA: PLEASE BRING A LIST OF YOUR CURRENT MEDICATIONS OR BRING YOUR MEDICATION BOTTLES WITH YOU MyChart: As a reminder, please do not use [employer] to send any messages requiring urgent attention. By selecting to send a message, you acknowledge you are seeking medical advice for a non urgent issue. Please allow up to two days for a response. Messages are not monitored evenings and weekends. Scheduling Needs: For any testing/appointment needs please call the Scheduling Team at [phone]. Test Results: We will communicate all test results either by phone or MyChart according to your preference. You may initially receive your results immediately via [employer], however, these may not have your physician comments or recommendations yet. After Hours: Please keep in mind that your provider is not in the office everyday of the week. I can reach the provider with your concerns Thursday thru Thursday during business hours. We have an after hours marketing communications manager service for urgent concerns, for urgent concerns please call our main office number [phone]. Please do not call my direct number for urgent needs after hours, this will not connect you with the marketing communications manager service. We cannot text you on your personal phone or message you on your personal email as this is not a secure communication system for your health care. For emergencies, please call 911 or go to the nearest hospital for an evaluation. documented in this encounter [facility] 06-05-2025 History of Present illness Narrative Physicians: Alonso Wheat MD (Family) Today's Chief Complaint: Chief Complaint Patient presents with Follow-up Patient c/o lightheadedness HISTORY: Subjective I had the pleasure of seeing Mr. Millan today at the [facility] in [place]. Patient is a pleasant 84-year-old male with a history of reported hypertrophic cardiomyopathy with hypertension, hyperlipidemia, osteoarthritis and reflux he is here for cardiac follow up. Patient was seen most recently in our nurse practitioner clinic 11/15. He said that he is lightheaded for months. He describes being wobbly. No syncope. He had his atenolol reduced from 100mg to 50mg. Home blood pressure readings acceptable. He continues to sees pain management for the pain and gets injections on a regular basis for back pain. No chest pain, no shortness of breath. Left lower extremity swelling with left greater than right. He states that his leg is swollen even when he gets up in the morning. He has been taking his Lasix daily. He has been compliant with his lower extremity compression stockings when it is less hot. To review: carries a diagnosis of hypertrophic cardiomyopathy, he had carried this diagnosis for many years. He has never had any genetic testing, no specific familial history elicited of hypertrophic cardiomyopathy. Patient has no biological children. Patient had a left heart catheterization in 2004 that was unremarkable. He had a tilt table test in 2002 that was positive for postural orthostasis, and subsequent EP study that showed normal intracardiac conduction this was in the face of syncope with a right bundle branch block on EKG. Impression/Plan: History of hypertrophic cardiomyopathy: No genetic testing has been performed, no family history. Cardiac MRI obtained 11/2020 consistent with hypertrophic cardiomyopathy. Septal wall thickness of 2 cm. Minimal mid myocardial scar. Mild chordal systolic anterior motion of the mitral valve. No significant MR. No significant increase in LVOT velocity. Patient has no biological children, therefore genetic testing is less concerning. Syncope in the past appears secondary to postural orthostasis with a positive tilt table test patient has had no high risk arrhythmic features. Patient is self-limited and his exercise due to significant back and arthritic problems. Patient has no demonstrable heart failure symptomatology. He meets no criteria for ICD implantation. clinical research monitor without any concerning arrhythmias. Last echo without outflow tract obstruction. Updated echocardiogram 05/01/2025 overall LV morphology stable Overall his lightheadedness he describes as feeling wobbly. No overt syncope. He has had his beta-[place] de-escalated. He did have a history of the lightheadedness with diuresis. Will have him scale back on his oral Lasix, will plan to have him take q. Thursday to see if that helps with some of his symptoms. Diabetes Increase AM glucose over the last few months. 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 Hyperlipidemia with a history of statin intolerance. Lipids managed by primary care provider, tolerating lovastatin without issue. No evidence of coronary artery disease based on left heart catheterization in 2004. History of positive tilt table test in 2002: EP study performed at the same time was unremarkable. Patient has a longstanding history of right bundle branch block on EKG. Intermittent lightheadedness, intolerance of Lasix due to symptomatic hypotension. Recommended prescription compression stockings for mild lower extremity edema. Hypertension: Blood pressure appears controlled on present therapy. FOR THE RECORD: Diagnostic Studies/Labs personally reviewed: Echocardiogram 05/17 Hyperdynamic systolic function EF 81% Eccentric septal hypertrophy consistent with hypertrophic cardiomyopathy. No significant gradient Normal RV size and function. Valvular and chordal RAMÍREZ No pulmonary hypertension Cardiac event monitor 04/14 No A-fib, average heart rate 64 range 52-95 Multiple events for dizziness lightheadedness associated with sinus rhythm 1 PVC noted Echocardiogram 07/14 Normal LV size septal wall hypertrophy measuring 1.9 cm. No LVOT obstruction. Normal RV size and function Mild MR normal RVSP Cardiac event monitor 01/24/2021 to 02/06/2021 for palpitation Patient had no A. fib, no atrial arrhythmias. 1 PVC noted. Diary symptoms associated with sinus rhythm and with his 1 PVC ECG personally reviewed from today with sinus rhythm, right bundle branch block which is old. Cardiac MRI 11/30/2020. Maximal septal wall thickness was 2 cm. LVEF 76%. He had mild mid myocardial scar in the basal and mid inferior septal wall. Normal RV size and function. Mild chordal RAMÍREZ with no significant LVOT velocity. Normal T1 mapping. Allergies: is allergic to hydrocodone-acetaminophen, tramadol, atorvastatin calcium, ezetimibe, simvastatin, and gdelbqt-sni-bbx reductase inhibitors. Medications: (list name, dose, frequency, and last dose taken): Current Outpatient Medications: amLODIPine (NORVASC) 2.5 MG tablet, Take 1 (one) tablet (2.5 mg total) by mouth 2 (two) times a day ., Disp: 180 tablet, Rfl: 3 aspirin 81 MG EC tablet, Take 1 (one) tablet (81 mg total) by mouth daily ., Disp: , Rfl: atenolol (TENORMIN) 50 MG tablet, Take 1 (one) tablet (50 mg total) by mouth 2 (two) times a day. (Patient taking differently: Take 1 (one) tablet (50 mg total) by mouth daily .), Disp: 180 tablet, Rfl: 3 calcium carbonate-vitamin D3 500 mg-10 mcg (400 unit) Tab, Take 500 mg by mouth daily, Disp: , Rfl: finasteride (PROSCAR) 5 mg tablet, Take 1 (one) tablet (5 mg total) by mouth daily ., Disp: , Rfl: furosemide (LASIX) 20 MG tablet, Take 1 (one) tablet (20 mg total) by mouth daily as needed ., Disp: 90 tablet, Rfl: 3 HYDROcodone-acetaminophen (NORCO) 5-325 mg per tablet, Take 1 (one) tablet by mouth 2 (two) times a day 2 prn ., Disp: , Rfl: lisinopriL (PRINIVIL,ZESTRIL) 40 MG tablet, Take 1 (one) tablet (40 mg total) by mouth daily Reasons: high blood pressure., Disp: 90 tablet, Rfl: 3 lovastatin (MEVACOR) 40 MG tablet, Take 2 (two) tablets (80 mg total) by mouth nightly ., Disp: , Rfl: metFORMIN (GLUCOPHAGE) 500 MG tablet, Take 1 (one) tablet (500 mg total) by mouth 2 (two) times a day with meals ., Disp: , Rfl: multivitamin (THERAGRAN) per tablet, Take 1 (one) tablet by mouth daily ., Disp: , Rfl: omeprazole (PRILOSEC) 40 MG capsule, Take 1 (one) capsule (40 mg total) by mouth 2 (two) times a day ., Disp: , Rfl: polyethylene glycol (MIRALAX) 17 gram powder, Take 17 (seventeen) g by mouth daily ., Disp: , Rfl: Past Medical History: Diagnosis Date Cardiomyopathy (HCC) GERD (gastroesophageal reflux disease) Hyperlipidemia Hypertension Hypertrophic cardiomyopathy (HCC) Osteoarthrosis Prostate cancer (HCC) Renal cyst 2012 Past Surgical History: Procedure Laterality Date CARDIAC CATHETERIZATION 12/19/2004 EF 75%, Valve functions within normal limits CATARACT EXT/ECCE Bilateral COLONOSCOPY [facility] HEMORRHOIDECTOMY STAPLED HEMORRHOIDOPEXY (PPH) TUMOR REMOVAL Middle of back Social History: Patient reports that he has never smoked. He has never used smokeless tobacco. He reports that he does not drink alcohol and does not use drugs. Family History: family history includes Heart attack in his brother. PHYSICAL EXAM General appearance: Patient appears no apparent distress Blood pressure (!) 149/71, pulse (!) 59, weight 96.2 kg (212 lb), SpO2 95%. Wt Readings from Last 3 Encounters: 06/05/25 96.2 kg (212 lb) 10/28/24 94.8 kg (208 lb 14.4 oz) 02/11/24 97.5 kg (215 lb) Body mass index is 31.31 kg/m . Physical Exam Constitutional: Appearance: He is well-developed. HENT: Head: Normocephalic and atraumatic. Eyes: Pupils: Pupils are equal, round, and reactive to light. Neck: Vascular: No JVD. Cardiovascular: Rate and Rhythm: Normal rate and regular rhythm. Pulses: Radial pulses are 2+ on the right side and 2+ on the left side. Heart sounds: No friction rub. No gallop. Comments: Soft 2 out of 6 murmur LVOT Pulmonary: Effort: Pulmonary effort is normal. Breath sounds: Normal breath sounds. No wheezing or rales. Musculoskeletal: Right lower leg: No edema. Left lower leg: No edema. Skin: General: Skin is warm and dry. Neurological: Mental Status: He is alert and oriented to person, place, and time. documented in this encounter [facility] 06-05-2025 Note Physicians: Alonso Hudson MD (Family) Today's Chief Complaint: Chief Complaint Patient presents with Follow-up Patient c/o lightheadedness HISTORY: Subjective I had the pleasure of seeing Mr. Millan today at the [facility] in [place]. Patient is a pleasant 84-year-old male with a history of reported hypertrophic cardiomyopathy with hypertension, hyperlipidemia, osteoarthritis and reflux he is here for cardiac follow up. Patient was seen most recently in our nurse practitioner clinic 11/15. He said that he is lightheaded for months. He describes being wobbly. No syncope. He had his atenolol reduced from 100mg to 50mg. Home blood pressure readings acceptable. He continues to sees pain management for the pain and gets injections on a regular basis for back pain. No chest pain, no shortness of breath. Left lower extremity swelling with left greater than right. He states that his leg is swollen even when he gets up in the morning. He has been taking his Lasix daily. He has been compliant with his lower extremity compression stockings when it is less hot. To review: carries a diagnosis of hypertrophic cardiomyopathy, he had carried this diagnosis for many years. He has never had any genetic testing, no specific familial history elicited of hypertrophic cardiomyopathy. Patient has no biological children. Patient had a left heart catheterization in 2004 that was unremarkable. He had a tilt table test in 2002 that was positive for postural orthostasis, and subsequent EP study that showed normal intracardiac conduction this was in the face of syncope with a right bundle branch block on EKG. Impression/Plan: History of hypertrophic cardiomyopathy: No genetic testing has been performed, no family history. Cardiac MRI obtained 11/2020 consistent with hypertrophic cardiomyopathy. Septal wall thickness of 2 cm. Minimal mid myocardial scar. Mild chordal systolic anterior motion of the mitral valve. No significant MR. No significant increase in LVOT velocity. Patient has no biological children, therefore genetic testing is less concerning. Syncope in the past appears secondary to postural orthostasis with a positive tilt table test patient has had no high risk arrhythmic features. Patient is self-limited and his exercise due to significant back and arthritic problems. Patient has no demonstrable heart failure symptomatology. He meets no criteria for ICD implantation. clinical research monitor without any concerning arrhythmias. Last echo without outflow tract obstruction. Updated echocardiogram 05/01/2025 overall LV morphology stable Overall his lightheadedness he describes as feeling wobbly. No overt syncope. He has had his beta-lab[place] de-escalated. He did have a history of the lightheadedness with diuresis. Will have him scale back on his oral Lasix, will plan to have him take q. Thursday to see if that helps with some of his symptoms. Diabetes Increase AM glucose over the last few months. 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 Hyperlipidemia with a history of statin intolerance. Lipids managed by primary care provider, tolerating lovastatin without issue. No evidence of coronary artery disease based on left heart catheterization in 2004. History of positive tilt table test in 2002: EP study performed at the same time was unremarkable. Patient has a longstanding history of right bundle branch block on EKG. Intermittent lightheadedness, intolerance of Lasix due to symptomatic hypotension. Recommended prescription compression stockings for mild lower extremity edema. Hypertension: Blood pressure appears controlled on present therapy. FOR THE RECORD: Diagnostic Studies/Labs personally reviewed: Echocardiogram 05/17 Hyperdynamic systolic function EF 81% Eccentric septal hypertrophy consistent with hypertrophic cardiomyopathy. No significant gradient Normal RV size and function. Valvular and chordal RAMÍREZ No pulmonary hypertension Cardiac event monitor 04/14 No A-fib, average heart rate 64 range 52-95 Multiple events for dizziness lightheadedness associated with sinus rhythm 1 PVC noted Echocardiogram 07/14 Normal LV size septal wall hypertrophy measuring 1.9 cm. No LVOT obstruction. Normal RV size and function Mild MR normal RVSP Cardiac event monitor 01/24/2021 to 02/06/2021 for palpitation Patient had no A. fib, no atrial arrhythmias. 1 PVC noted. Diary symptoms associated with sinus rhythm and with his 1 PVC ECG personally reviewed from today with sinus rhythm, right bundle branch block which is old. Cardiac MRI 11/30/2020. Maximal septal wall thickness was 2 cm. LVEF 76%. He had mild mid myocardial scar in the basal and mid inferior septal wall. Normal RV size and function. Mild chordal RAMÍREZ with no significant LVOT velocity. Normal T1 mapping. Allergies: is allergic to hydrocodone-acetaminop (more content not included)... [facility] 05-18-2025 Telephone encounter Note Patient has been identified by name and date of : Yes Patient phones for refill(s): Requested Prescriptions Pending Prescriptions Disp Refills Lancets 100 each 3 Sig: Test blood sugar(s) one times daily. Dx: Type 2 DM - Controlled E11.9 Insulin: No Date of last office visit in primary care: 03/21/2025 Date of next office visit in primary care: 09/14/2025 Please advise. Thank you. Ines Dumont LPN. [facility] 05-18-2025 Miscellaneous Notes Patient has been identified by name and date of : Yes Patient phones for refill(s): Requested Prescriptions Pending Prescriptions Disp Refills Lancets 100 each 3 Sig: Test blood sugar(s) one times daily. Dx: Type 2 DM - Controlled E11.9 Insulin: No Date of last office visit in primary care: 03/21/2025 Date of next office visit in primary care: 09/14/2025 Please advise. Thank you. Ines Dumont LPN. documented in this encounter [facility] 03-24-2025 Note HNO ID: [id number] Author: HERMINIA REED MD Service: ? Author Type: Physician Type: Progress Notes Filed: 03/27/2025 09:30 Note Text: AMBULATORY TELEPHONE VISIT Ayleen Millan has consented to this telephone encounter. Persons Present: patient Chief Complaint/Reason: Follow-up after radiation treatment. HPI: Prostate adenocarcinoma with Reading score 7 (3+4), PSA 2.83 and clinical stage T1c, s/p radiation treatment finished on 08/11/16. He is doing well without any specific new complaints. He denies any problems with urination or bowel movement. Most recent PSA on 03/15/25 and 0.04 and it decreased from 0.17 on 03/16/24. Data Reviewed: Most recent labs Assessment: Clinically stable. Plan: PSA and phone visit in one year. Total Time Spent: 10 minutes Herminia Reed MD [facility] 03-24-2025 History of Present illness Narrative AMBULATORY TELEPHONE VISIT Ayleen Millan has consented to this telephone encounter. Persons Present: patient Chief Complaint/Reason: Follow-up after radiation treatment. HPI: Prostate adenocarcinoma with Kym score 7 (3+4), PSA 2.83 and clinical stage T1c, s/p radiation treatment finished on 08/11/16. He is doing well without any specific new complaints. He denies any problems with urination or bowel movement. Most recent PSA on 03/15/25 and 0.04 and it decreased from 0.17 on 03/16/24. Data Reviewed: Most recent labs Assessment: Clinically stable. Plan: PSA and phone visit in one year. Total Time Spent: 10 minutes Herminia Reed MD documented in this encounter [facility] 03-21-2025 Note HNO ID: [id number] Author: ALONSO WHEAT MD Service: ? Author Type: Physician Type: Progress Notes Filed: 03/21/2025 11:03 Note Text: This note was created using Koducoriter. Subjective Patient presents with: F/U 6 months Ayleen Millan is a 84 year old male. He's been dealing with chronic lightheadedness for several months, and felt he was over medicated. His hypertension was well controlled, and bradycardia was noted on a chronic basis. He had no history of arrhythmia or tachycardia. Cardiology followed for HCM and medications were stable. Diabetes was elevating. Lipids were controlled. ILD was monitored. Review of Systems Constitutional: Negative for fatigue. Respiratory: Negative for cough and shortness of breath. Cardiovascular: Negative for chest pain, palpitations and leg swelling. Gastrointestinal: Negative. Musculoskeletal: Negative for gait problem. Neurological: Positive for light-headedness. Negative for dizziness, syncope, facial asymmetry, weakness, numbness and headaches. 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 Benign Prostatic Hyperplasia With Lower Urinary Tract Symptoms Lumbago Hearing Loss in Right Ear History of Prostate Cancer Obesity, Class I, Bmi 30-34.9 Controlled Type 2 Diabetes Mellitus Without Complication, Without Long-Term Current Use of Insulin (Hcc) Degenerative Tear of Acetabular Labrum of Right Hip Ild (Interstitial Lung Disease) (Hcc) Social History Tobacco Use Smoking status: Never Smokeless tobacco: Never Vaping Use Vaping status: Never Used Substance Use Topics Alcohol use: Not Currently Comment: rare Drug use: No Current Outpatient Medications Medication Sig finasteride (PROSCAR) 5 mg tablet Take 5 mg by mouth once daily. omeprazole (PRILOSEC) 40 mg capsule Take 1 capsule by mouth two times a day. atenolol (TENORMIN) 50 mg tablet Take 1 tablet by mouth two times a day. lovastatin 40 mg tablet Take 2 tablets by mouth daily at bedtime. For cholesterol. metFORMIN ER (GLUCOPHAGE XR) 500 mg 24 hr tablet Take 2 tablets by mouth daily with breakfast. amLODIPine (NORVASC) 5 mg tablet Take 0.5 tablets by mouth two times a day. blood sugar diagnostic (BLOOD GLUCOSE TEST) test strip Test blood sugar(s) 1 times daily. Dx: Type 2 DM - Controlled E11.9 Insulin: No ipratropium (ATROVENT) 0.02 % nebulizer solution Use 2.5 mL via nebulizer three times a day. OVER 5-15 MINUTES FOR WHEEZING OR SHORTNESS OF BREATH guaiFENesin (MUCINEX) 600 mg 12 hr tablet Take 1 tablet by mouth two times a day. Lancets (ONETOUCH ULTRASOFT LANCETS) lancets Test blood sugars 1 time daily. Dx: Type 2 DM Controlled E11.9 Insulin: No lisinopril (ZESTRIL) 40 mg tablet Take 40 mg by mouth once daily. Mucus Clearing Device nadir Provide mucus clearing device furosemide (LASIX) 20 mg tablet Take 40 mg by mouth once daily. Using 20mg per day currently. HYDROcodone-acetaminophen (NORCO) 5-325 mg per tablet Take 1 tablet by mouth twice daily as needed. polyethylene glycol 3350 (MIRALAX, GLYCOLAX) 17 gram/dose powder Take 17 g by mouth once daily. aspirin, enteric coated (ASPIRIN, ENTERIC COATED) 81 mg EC tablet Take 81 mg by mouth once daily. calcium carbonate 600 mg-cholecalciferol 200 units 600 mg-5 mcg (200 unit) tab Take 1 tablet by mouth twice daily. CENTRUM SILVER TAB Lancets lancets Test blood sugar(s) one times daily. Dx: Type 2 DM - Controlled E11.9 Insulin: No Lancing Device misc 1 Each once daily. No current facility-administered medications for this visit. Objective BP 126/62 (BP Site: Right Arm, BP Position: Sitting, BP Cuff Size: Large Adult) Pulse 64 Resp 24 Wt 93.7 kg (206 lb 9.1 oz) BMI 31.18 kg/m? Physical Exam Constitutional: Appearance: He is not ill-appearing. Cardiovascular: Rate and Rhythm: Normal rate and regular rhythm. Heart sounds: No murmur heard. No gallop. Pulmonary: Effort: No respiratory distress. Breath sounds: Rales present. No wheezing or rhonchi. Musculoskeletal: Right lower leg: No edema. Left lower leg: No edema. Neurological: General: No focal deficit present. Mental Status: He is alert. Gait: Gait normal. Feet:Shoes and socks removed, No deformities, ulcers, calluses, normal distal pulses, sensitive to 10 gm monofilament, and nails notable for Deformed. Latest Ref Rng 03/15/2025 Protein, Total 6.3 - 8.0 g/dL 6.9 Albumin 3.9 - 4.9 g/dL 4.1 Calcium 8.5 - 10.2 mg/dL 9.5 Bilirubin, Total 0.2 - 1.3 mg/dL 0.4 Alkaline Phosphatase 38 - 113 U/L 84 AST 14 - 40 U/L 24 ALT 10 - 54 U/L 19 Glucose 74 - 99 mg/dL 120 (H) BUN 9 - 24 mg/dL 15 Creatinine 0.73 - 1.22 mg/dL 0.97 Sodium 136 - 144 mmol/L 141 Potassium 3.7 - 5.1 mmol/L 4.3 C (more content not included)... [facility] 03-21-2025 History of Present illness Narrative This note was created using Koducoriter. Subjective Patient presents with: F/U 6 months Ayleen Millan is a 84 year old male. He's been dealing with chronic lightheadedness for several months, and felt he was over medicated. His hypertension was well controlled, and bradycardia was noted on a chronic basis. He had no history of arrhythmia or tachycardia. Cardiology followed for HCM and medications were stable. Diabetes was elevating. Lipids were controlled. ILD was monitored. Review of Systems Constitutional: Negative for fatigue. Respiratory: Negative for cough and shortness of breath. Cardiovascular: Negative for chest pain, palpitations and leg swelling. Gastrointestinal: Negative. Musculoskeletal: Negative for gait problem. Neurological: Positive for light-headedness. Negative for dizziness, syncope, facial asymmetry, weakness, numbness and headaches. 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 Benign Prostatic Hyperplasia With Lower Urinary Tract Symptoms Lumbago Hearing Loss in Right Ear History of Prostate Cancer Obesity, Class I, Bmi 30-34.9 Controlled Type 2 Diabetes Mellitus Without Complication, Without Long-Term Current Use of Insulin (Hcc) Degenerative Tear of Acetabular Labrum of Right Hip Ild (Interstitial Lung Disease) (Hcc) Social History Tobacco Use Smoking status: Never Smokeless tobacco: Never Vaping Use Vaping status: Never Used Substance Use Topics Alcohol use: Not Currently Comment: rare Drug use: No Current Outpatient Medications Medication Sig finasteride (PROSCAR) 5 mg tablet Take 5 mg by mouth once daily. omeprazole (PRILOSEC) 40 mg capsule Take 1 capsule by mouth two times a day. atenolol (TENORMIN) 50 mg tablet Take 1 tablet by mouth two times a day. lovastatin 40 mg tablet Take 2 tablets by mouth daily at bedtime. For cholesterol. metFORMIN ER (GLUCOPHAGE XR) 500 mg 24 hr tablet Take 2 tablets by mouth daily with breakfast. amLODIPine (NORVASC) 5 mg tablet Take 0.5 tablets by mouth two times a day. blood sugar diagnostic (BLOOD GLUCOSE TEST) test strip Test blood sugar(s) 1 times daily. Dx: Type 2 DM - Controlled E11.9 Insulin: No ipratropium (ATROVENT) 0.02 % nebulizer solution Use 2.5 mL via nebulizer three times a day. OVER 5-15 MINUTES FOR WHEEZING OR SHORTNESS OF BREATH guaiFENesin (MUCINEX) 600 mg 12 hr tablet Take 1 tablet by mouth two times a day. Lancets (MatchbinTOUCH ULTRASOFT LANCETS) lancets Test blood sugars 1 time daily. Dx: Type 2 DM Controlled E11.9 Insulin: No lisinopril (ZESTRIL) 40 mg tablet Take 40 mg by mouth once daily. Mucus Clearing Device nadir Provide mucus clearing device furosemide (LASIX) 20 mg tablet Take 40 mg by mouth once daily. Using 20mg per day currently. HYDROcodone-acetaminophen (NORCO) 5-325 mg per tablet Take 1 tablet by mouth twice daily as needed. polyethylene glycol 3350 (MIRALAX, GLYCOLAX) 17 gram/dose powder Take 17 g by mouth once daily. aspirin, enteric coated (ASPIRIN, ENTERIC COATED) 81 mg EC tablet Take 81 mg by mouth once daily. calcium carbonate 600 mg-cholecalciferol 200 units 600 mg-5 mcg (200 unit) tab Take 1 tablet by mouth twice daily. CENTRUM SILVER TAB Lancets lancets Test blood sugar(s) one times daily. Dx: Type 2 DM - Controlled E11.9 Insulin: No Lancing Device misc 1 Each once daily. No current facility-administered medications for this visit. Objective BP 126/62 (BP Site: Right Arm, BP Position: Sitting, BP Cuff Size: Large Adult) Pulse 64 Resp 24 Wt 93.7 kg (206 lb 9.1 oz) BMI 31.18 kg/m Physical Exam Constitutional: Appearance: He is not ill-appearing. Cardiovascular: Rate and Rhythm: Normal rate and regular rhythm. Heart sounds: No murmur heard. No gallop. Pulmonary: Effort: No respiratory distress. Breath sounds: Rales present. No wheezing or rhonchi. Musculoskeletal: Right lower leg: No edema. Left lower leg: No edema. Neurological: General: No focal deficit present. Mental Status: He is alert. Gait: Gait normal. Feet:Shoes and socks removed, No deformities, ulcers, calluses, normal distal pulses, sensitive to 10 gm monofilament, and nails notable for Deformed. Latest Ref Rng 03/15/2025 Protein, Total 6.3 - 8.0 g/dL 6.9 Albumin 3.9 - 4.9 g/dL 4.1 Calcium 8.5 - 10.2 mg/dL 9.5 Bilirubin, Total 0.2 - 1.3 mg/dL 0.4 Alkaline Phosphatase 38 - 113 U/L 84 AST 14 - 40 U/L 24 ALT 10 - 54 U/L 19 Glucose 74 - 99 mg/dL 120 (H) BUN 9 - 24 mg/dL 15 Creatinine 0.73 - 1.22 mg/dL 0.97 Sodium 136 - 144 mmol/L 141 Potassium 3.7 - 5.1 mmol/L 4.3 Chloride 98 - 107 mmol/L 104 CO2 22 - 30 mmol/L 28 Anion Gap 8 - 15 mmol/L 9 eGFR >=60 mL/min/1.73m 77 WBC 3.70 - 11.00 k/uL 7.03 RBC 4.20 - 6.00 m/uL 4.44 Hemoglobin 13.0 - 17.0 g/dL 13.3 Hematocrit 39.0 - 51.0 % 41.7 MCV 80.0 - 100.0 fL 93.9 MCH 26.0 - 34.0 pg 30.0 MCHC 30.5 - 36.0 g/dL 31.9 RDW-CV 11.5 - 15.0 % 13.4 Platelet Count 150 - 400 k/uL 165 MPV 9.0 - 12.7 fL 10.8 Absolute nRBC <0.01 k/uL <0.01 Cholesterol, Total <200 mg/dL 151 Triglyceride <150 mg/dL 96 HDL Cholesterol >39 mg/dL 49 LDL Cholesterol, Calculated <100 mg/dL 84 Non HDL Cholesterol <130 mg/dL 102 VLDL Cholesterol <30 mg/dL 15 TC:HDL Ratio <5.10 3.08 LDL:HDL Ratio <2.54 1.71 Fasting Time hrs 12 Creatinine, Ur Random (UCRR) 20.0 - 300.0 mg/dL 86.0 Albumin, Urine Random mg/L 12.8 Albumin/Creat Ratio <30 mg/g 15 Hemoglobin A1C 4.3 - 5.6 % 7.3 (H) Estimated Average Glucose mg/dL 163 PSA <2.60 ng/mL 0.04 Legend: (H) High Assessment and Plan 1. Light headedness - ICD9: 780.4, ICD10: R42 (primary diagnosis) - Medication related. Reduce atenolol. 2. Hypertrophic cardiomyopathy (HCC) - ICD9: 425.18, ICD10: I42.2 Stable. - ATENOLOL 50 MG TABLET. Reduce dose to 50 mg daily. 3. Essential hypertension, benign - ICD9: 401.1, ICD10: I10 - Controlled - See #2. - AMLODIPINE 2.5 MG TABLET - ATENOLOL 50 MG TABLET 4. Hyperlipidemia, unspecified hyperlipidemia type - ICD9: 272.4, ICD10: E78.5 - Controlled - Continue current medications - Counseled on healthy diet and regular exercise 5. Controlled type 2 diabetes mellitus without complication, without long-term current use of insulin (HCC) - ICD9: 250.00, ICD10: E11.9 - Worsening control - Continue current medications - Counseled on healthy diet and regular exercise - BASIC METABOLIC PANEL - HEMOGLOBIN A1C 6. ILD (interstitial lung disease) (HCC) - ICD9: 515, ICD10: J84.9 - Stable. 7. History of prostate cancer - ICD9: V10.46, ICD10: Z85.46 - Monitored. No recurrence. Alonso Wheat MD documented in this encounter [facility] 02-23-2025 Note HNO ID: [id number] Author: EDLMA RIDER MA Service: ? Author Type: Chairlift Operator Type: Progress Notes Filed: 02/23/2025 10:07 Note Text: POPULATION HEALTH NAVIGATION OUTREACH Action/FYI Contacted patient to schedule HCC care gaps and health maintenance. 1st attempt: Left message with my direct number 2nd attempt: My Chart message sent Topic Due (Y or N) Comments Annual Wellness Exam Yes PCP Follow up Yes Colorectal Cancer Screening No A1C No HTN/Controlling BP No HCC Yes Updated appointment notes No Reason for Outreach Care Gap/HCC or Scheduling Wellness Visits Care Gaps due: Medicare Annual Wellness Visit Follow-up Appointment Patient Contacted: Unable or unnecessary to reach patient: Left message [employer] message sent HCC related Navigation Signature: Delma Rider MA February 23, 2025 10:06 AM [facility] 02-23-2025 History of Present illness Narrative POPULATION HEALTH NAVIGATION OUTREACH Action/FYI Contacted patient to schedule HCC care gaps and health maintenance. 1st attempt: Left message with my direct number 2nd attempt: My Chart message sent Topic Due (Y or N) Comments Annual Wellness Exam Yes PCP Follow up Yes Colorectal Cancer Screening No A1C No HTN/Controlling BP No HCC Yes Updated appointment notes No Reason for Outreach Care Gap/HCC or Scheduling Wellness Visits Care Gaps due: Medicare Annual Wellness Visit Follow-up Appointment Patient Contacted: Unable or unnecessary to reach patient: Left message [employer] message sent HCC related Navigation Signature: Delma Rider MA February 23, 2025 10:06 AM documented in this encounter [facility] 02-23-2025 Note Patient Outreach (NE TNAV) AYLEEN MILLAN V ([id number]) 1940 M Date Time Provider Department 02/23/25 DELMA RIDER During your visit today, we recorded the following information about you: Delma Rider MA 02/23/2025 10:07 AM Signed POPULATION HEALTH NAVIGATION OUTREACH Action/FYI Contacted patient to schedule HCC care gaps and health maintenance. 1st attempt: Left message with my direct number 2nd attempt: My Chart message sent Topic Due (Y or N) Comments Annual Wellness Exam Yes PCP Follow up Yes Colorectal Cancer Screening No A1C No HTN/Controlling BP No HCC Yes Updated appointment notes No Reason for Outreach Care Gap/HCC or Scheduling Wellness Visits Care Gaps due: Medicare Annual Wellness Visit Follow-up Appointment Patient Contacted: Unable or unnecessary to reach patient: Left message MyChart message sent HCC related Navigation Signature: Delma Rider MA February 23, 2025 10:06 AM Allergies As of Date: 02/23/2025 Noted Allergy Reaction ALBUTEROL 11/27/2020 5 - Intolerance Comments: tachycardia TRAMADOL 08/29/2011 9 - Itching LIPITOR (ATORVASTATIN CALCIUM) 06/23/2006 5 - Intolerance Comments: leg cramps STATINS ([id number] REDUCTAS*02/07/2008 5 - Intolerance Comments: leg cramping with most statins VYTORIN 09/01 ([id number]*04/16/2006 5 - Intolerance Comments: leg cramping Date Reviewed: 11/17/2024 Reviewed by: Svetlana Jaeger MD - Fully Assessed Reason for Visit: Population Health Navigation Outreach [3910] Cmt: [place]/Workbench/ACO Prescriptions as of 02/23/2025 - omeprazole (PRILOSEC) 40 mg capsule Take 1 capsule by mouth two times a day. - atenolol (TENORMIN) 50 mg tablet Take 1 tablet by mouth two times a day. - lovastatin 40 mg tablet Take 2 tablets by mouth daily at bedtime. For cholesterol. - metFORMIN ER (GLUCOPHAGE XR) 500 mg 24 hr tablet Take 2 tablets by mouth daily with breakfast. - amLODIPine (NORVASC) 5 mg tablet Take 0.5 tablets by mouth two times a day. - blood sugar diagnostic (BLOOD GLUCOSE TEST) test strip Test blood sugar(s) 1 times daily. Dx: Type 2 DM - Controlled E11.9 Insulin: No - ipratropium (ATROVENT) 0.02 % nebulizer solution Use 2.5 mL via nebulizer three times a day. OVER 5-15 MINUTES FOR WHEEZING OR SHORTNESS OF BREATH - guaiFENesin (MUCINEX) 600 mg 12 hr tablet Take 1 tablet by mouth two times a day. - Lancets lancets Test blood sugar(s) one times daily. Dx: Type 2 DM - Controlled E11.9 Insulin: No - Lancing Device misc 1 Each once daily. - Lancets (ONETOUCH ULTRASOFT LANCETS) lancets Test blood sugars 1 time daily. Dx: Type 2 DM Controlled E11.9 Insulin: No - lisinopril (ZESTRIL) 40 mg tablet Take 40 mg by mouth once daily. - Mucus Clearing Device nadir Provide mucus clearing device - furosemide (LASIX) 20 mg tablet Take 40 mg by mouth once daily. Using 20mg per day currently. - HYDROcodone-acetaminophen (NORCO) 5-325 mg per tablet Take 1 tablet by mouth twice daily as needed. - polyethylene glycol 3350 (MIRALAX, GLYCOLAX) 17 gram/dose powder Take 17 g by mouth once daily. - aspirin, enteric coated (ASPIRIN, ENTERIC COATED) 81 mg EC tablet Take 81 mg by mouth once daily. - calcium carbonate 600 mg-cholecalciferol 200 units 600 mg-5 mcg (200 unit) tab Take 1 tablet by mouth twice daily. - CENTRUM SILVER TAB Problem List As Of Date 02/23/2025 Noted Resolved GENERAL OSTEOARTHROSIS [M15.9] ALLERGIC RHINITIS NOS [J30.9] INT HEMORRHOID W/O COMPL [K64.8] 06/23/2006 DIVERTICULOSIS OF COLON W/O BLEED [K57.30] 06/23/2006 ESOPHAGEAL REFLUX [K21.9] Bundle branch block, unspecified [I45.4] 09/07/2014 Hyperlipemia [E78.5] BENIGN HYPERTENSION [I10] Hypertrophic cardiomyopathy (HCC) [I42.2] 10/28/2005 DISC DIS NEC/NOS-CERV [M50.90] 10/28/2005 Benign prostatic hyperplasia with lower urinary*03/08/2013 Hypoglycemia, unspecified [E16.2] 08/10/2008 08/29/2011 Neoplasm of Uncertain Behavior of Skin [D48.5] 08/21/2008 08/20/2009 Inflamed Seborrheic Keratosis [L82.0] 08/21/2008 08/20/2009 Viral Warts, Unspecified [B07.9] 08/21/2008 08/20/2009 NEUROFIBROMA////BENIGN AYE SKIN TRUNK [D23.5] 08/21/2008 09/02/2012 SEBORRHEIC KERATOSES NOS [L82.1] 08/21/2008 10/05/2019 SOLAR LENGINES///DYSCHROMIA OTHER [L81.9] 08/21/2008 08/20/2009 Benign Neoplasm of Scalp and Skin of Neck [D23.*09/29/2008 08/20/2009 First degree hemorrhoids [K64.0] 10/10/2008 10/25/2020 Lumbago [M54.50] 12/11/2010 Other physical therapy [[id number]] 01/15/2011 08/29/2011 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 [facility] 01-23-2025 Telephone encounter Note Prescription Refill Information The patient has been identified by name and date of : Yes Caregiver verified no other encounters exist for this prescription request: Yes Caregiver confirmed with patient/requestor that no other refills are due, in the near future, with this provider at this time: Yes The last office visit in the department: 09/21/24 Does the patient have a future office visit with this provider/department: Yes 03/21/25 Requested Prescriptions Pending Prescriptions Disp Refills omeprazole (PRILOSEC) 40 mg capsule 180 capsule 3 Sig: Take 1 capsule by mouth two times a day. Rivka Torres LPN January 23, 2025 3:32 PM [facility] 01-23-2025 Miscellaneous Notes Prescription Refill Information The patient has been identified by name and date of : Yes Caregiver verified no other encounters exist for this prescription request: Yes Caregiver confirmed with patient/requestor that no other refills are due, in the near future, with this provider at this time: Yes The last office visit in the department: 09/21/24 Does the patient have a future office visit with this provider/department: Yes 03/21/25 Requested Prescriptions Pending Prescriptions Disp Refills omeprazole (PRILOSEC) 40 mg capsule 180 capsule 3 Sig: Take 1 capsule by mouth two times a day. Rivka Torres LPN January 23, 2025 3:32 PM documented in this encounter [facility] 12-19-2024 Telephone encounter Note Prescription Refill Information The patient has been identified by name and date of : Yes Caregiver verified no other encounters exist for this prescription request: Yes Caregiver confirmed with patient/requestor that no other refills are due, in the near future, with this provider at this time: Yes The last office visit in the department: 09/21/24 Does the patient have a future office visit with this provider/department: Yes 03/21/25 Requested Prescriptions Pending Prescriptions Disp Refills atenolol (TENORMIN) 50 mg tablet 180 tablet 3 Sig: Take 1 tablet by mouth two times a day. Rivka Torres LPN December 19, 2024 10:13 AM [facility] 12-19-2024 Miscellaneous Notes Prescription Refill Information The patient has been identified by name and date of : Yes Caregiver verified no other encounters exist for this prescription request: Yes Caregiver confirmed with patient/requestor that no other refills are due, in the near future, with this provider at this time: Yes The last office visit in the department: 09/21/24 Does the patient have a future office visit with this provider/department: Yes 03/21/25 Requested Prescriptions Pending Prescriptions Disp Refills atenolol (TENORMIN) 50 mg tablet 180 tablet 3 Sig: Take 1 tablet by mouth two times a day. Rivka Torres LPN December 19, 2024 10:13 AM documented in this encounter [facility] 11-21-2024 Telephone encounter Note Patient lvm requesting refill. Patient was last seen 10/28/24 by Raoul VALENTINO. Refill appropriate. [facility] 11-21-2024 Miscellaneous Notes Patient lvm requesting refill. Patient was last seen 10/28/24 by Raoul VALENTINO. Refill appropriate. documented in this encounter [facility] 11-17-2024 History of Present illness Narrative Images from the original note were not included. . [facility] [place] Note Patient name: Ayleen Millan PCP: Alonso Wheat MD CC: Pulmonary fibrosis HPI: Ayleen Millan 83 year old male non-smoker with PMH significant for HTN, PAD, GERD, AVM with GIB, prostate cancer s/p XRT, DM, HOCM, bronchiectasis, and pulmonary fibrosis. ILD dates back to 2012. No known drug exposures, occupational exposures, autoimmune disorder. Has intermittent wheezing but intolerant of CJ/LABA due to tachycardia. Cannot afford LAMA. Wheezing improved with use of acapella device and nebulized ipratropium bromide. He presents today for follow-up his most recent CT of his chest. Imaging shows stability of his fibrotic changes. Overall he has been doing well. No significant shortness of breath limiting his activities. He has had some intermittent wheezing. No significant mucus production. He has not been ill with any upper respiratory infection nor required hospitalization. He is up-to-date with his vaccinations. His other complaint today is feeling lightheaded in the morning after he takes his morning medications. He has not had any syncope. He is on 4 different types of blood pressure medications and he takes them all at the same time. DATA: Imaging / Diagnostic Studies: DATE OF EXAM: Oct 24 2024 1:24PM [facility] 0541 - CT CHEST WO IVCON / IMPRESSION: Stable bilateral nodules. No new or enlarging nodules identified. Reticular opacities in the bilateral lower lobes with traction bronchiolectasis, unchanged compared to prior study. Remote granulomatous disease. I personally reviewed the images as well as with the patient and his who accompanied him today which shows stable mild fibrotic changes and focal bronchiectasis PAST MEDICAL HISTORY Diagnosis Date Allergic rhinitis, cause unspecified Arthritis AVM (arteriovenous malformation) of colon with hemorrhage 08/13/2017 Benign prostatic hyperplasia with lower urinary tract symptoms 03/08/2013 Bundle branch block, unspecified Carotid disease, bilateral ([facility]) 08/30/2015 CHR SOLAR SKIN DAMAGE NOS 08/21/2008 Controlled type 2 diabetes mellitus without complication, without long-term current use of insulin ([facility]) 10/04/2019 Degenerative tear of acetabular labrum of right hip 07/19/2020 Diverticulosis of colon (without mention of hemorrhage) 08/13/2017 Duplicated ureter, 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 Nelson ILD (interstitial lung disease) ([facility]) 08/13/2020 Impaired fasting glucose 08/29/2011 Lumbago 12/11/2010 Orthostatic dizziness 10/04/2019 Other and unspecified disc disorder of cervical region 10/28/2005 Other and unspecified hyperlipidemia Prostate cancer ([facility]) 05/30/2016 Radiation therapy Renal cyst 09/29/2013 Unspecified gastritis and gastroduodenitis ALLERGIES Allergen Reactions Albuterol Intolerance tachycardia Tramadol Itching Lipitor [Atorvastat* Intolerance leg cramps Statins [Statins-Hm* Intolerance leg cramping with most statins Vytorin 09/01 [Ezet* Intolerance leg cramping lovastatin 40 mg tablet Take 2 tablets by mouth daily at bedtime. For cholesterol. metFORMIN ER (GLUCOPHAGE XR) 500 mg 24 hr tablet Take 2 tablets by mouth daily with breakfast. amLODIPine (NORVASC) 5 mg tablet Take 0.5 tablets by mouth two times a day. blood sugar diagnostic (BLOOD GLUCOSE TEST) test strip Test blood sugar(s) 1 times daily. Dx: Type 2 DM - Controlled E11.9 Insulin: No ipratropium (ATROVENT) 0.02 % nebulizer solution Use 2.5 mL via nebulizer three times a day. OVER 5-15 MINUTES FOR WHEEZING OR SHORTNESS OF BREATH guaiFENesin (MUCINEX) 600 mg 12 hr tablet Take 1 tablet by mouth two times a day. omeprazole (PRILOSEC) 40 mg capsule Take 1 capsule by mouth two times a day. atenolol (TENORMIN) 50 mg tablet Take 1 tablet by mouth two times a day. Lancets lancets Test blood sugar(s) one times daily. Dx: Type 2 DM - Controlled E11.9 Insulin: No Lancing Device misc 1 Each once daily. Lancets (ONETOUCH ULTRASOFT LANCETS) lancets Test blood sugars 1 time daily. Dx: Type 2 DM Controlled E11.9 Insulin: No lisinopril (ZESTRIL) 40 mg tablet Take 40 mg by mouth once daily. Mucus Clearing Device nadir Provide mucus clearing device furosemide (LASIX) 20 mg tablet Take 40 mg by mouth once daily. Using 20mg per day currently. HYDROcodone-acetaminophen (NORCO) 5-325 mg per tablet Take 1 tablet by mouth twice daily as needed. polyethylene glycol 3350 (MIRALAX, GLYCOLAX) 17 gram/dose powder Take 17 g by mouth once daily. aspirin, enteric coated (ASPIRIN, ENTERIC COATED) 81 mg EC tablet Take 81 mg by mouth once daily. calcium carbonate 600 mg-cholecalciferol 200 units 600 mg-5 mcg (200 unit) tab Take 1 tablet by mouth twice daily. CENTRUM SILVER TAB Social History Tobacco Use Smoking status: Never Smokeless tobacco: Never Vaping Use Vaping status: Never Used Substance Use Topics Alcohol use: Not Currently Comment: rare Drug use: No PMH, Social history, family history and surgical history reviewed and updated in EMR REVIEW OF SYSTEMS: CONSTITUTIONAL: No fevers, chills, nightsweats, unintended weight loss HEENT: Denies nasal congestion/sinus symptoms, problematic allergy problems. CARDIOVASCULAR: No chest pain, dyspnea, palpitations, orthopnea. Mild edema PULM: See HPI GI: No dysphagia/odynophagia, problematic reflux INTEGUMENTARY: No new skin changes PHYSICAL EXAMINATION: BP 130/66 Pulse 58 Wt 211 lb 3.2 oz (95.8kg) SpO2 100% General Appearance: Elderly male, NAD. Oropharynx: No oral lesions. Neck: No JVD, no masses, no adenopathy. Lungs: Not labored, normal to percussion, bibasilar crackles right greater than left, no wheezing. Heart: Regular rate and rhythm, systolic murmur right upper sternal border. Extremities: Mild edema, no clubbing. Assessment/Plan: 1. ILD -Mild pulmonary fibrosis with imaging and clinical history not consistent with IPF -Continued surveillance -No intervention needed at this time 2. Bronchiectasis, uncomplicated -Continue Acapella/flutter device and nebulized ipratropium bromide Svetlana Jaeger MD [facility] [place] documented in this encounter [facility] 11-17-2024 Note HNO ID: [id number] Author: SVETLANA JAEGER MD Service: ? Author Type: Physician Type: Progress Notes Filed: 11/17/2024 16:38 Note Text: . [facility] [place] [facility] Patient name: Ayleen Millan PCP: Alonso Wheat MD CC: Pulmonary fibrosis HPI: Ayleen Millan 83 year old male non-smoker with PMH significant for HTN, PAD, GERD, AVM with GIB, prostate cancer s/p XRT, DM, HOCM, bronchiectasis, and pulmonary fibrosis. ILD dates back to 2012. No known drug exposures, occupational exposures, autoimmune disorder. Has intermittent wheezing but intolerant of CJ/LABA due to tachycardia. Cannot afford LAMA. Wheezing improved with use of acapella device and nebulized ipratropium bromide. He presents today for follow-up his most recent CT of his chest. Imaging shows stability of his fibrotic changes. Overall he has been doing well. No significant shortness of breath limiting his activities. He has had some intermittent wheezing. No significant mucus production. He has not been ill with any upper respiratory infection nor required hospitalization. He is up-to-date with his vaccinations. His other complaint today is feeling lightheaded in the morning after he takes his morning medications. He has not had any syncope. He is on 4 different types of blood pressure medications and he takes them all at the same time. DATA: Imaging / Diagnostic Studies: DATE OF EXAM: Oct 24 2024 1:24PM [facility] 0541 - CT CHEST WO IVCON / IMPRESSION: Stable bilateral nodules. No new or enlarging nodules identified. Reticular opacities in the bilateral lower lobes with traction bronchiolectasis, unchanged compared to prior study. Remote granulomatous disease. I personally reviewed the images as well as with the patient and his who accompanied him today which shows stable mild fibrotic changes and focal bronchiectasis PAST MEDICAL HISTORY Diagnosis Date Allergic rhinitis, cause unspecified Arthritis AVM (arteriovenous malformation) of colon with hemorrhage 08/13/2017 Benign prostatic hyperplasia with lower urinary tract symptoms 03/08/2013 Bundle branch block, unspecified Carotid disease, bilateral ([facility]) 08/30/2015 CHR SOLAR SKIN DAMAGE NOS 08/21/2008 Controlled type 2 diabetes mellitus without complication, without long-term current use of insulin ([facility]) 10/04/2019 Degenerative tear of acetabular labrum of right hip 07/19/2020 Diverticulosis of colon (without mention of hemorrhage) 08/13/2017 Duplicated ureter, 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 Nelson ILD (interstitial lung disease) ([facility]) 08/13/2020 Impaired fasting glucose 08/29/2011 Lumbago 12/11/2010 Orthostatic dizziness 10/04/2019 Other and unspecified disc disorder of cervical region 10/28/2005 Other and unspecified hyperlipidemia Prostate cancer ([facility]) 05/30/2016 Radiation therapy Renal cyst 09/29/2013 Unspecified gastritis and gastroduodenitis ALLERGIES Allergen Reactions Albuterol Intolerance tachycardia Tramadol Itching Lipitor [Atorvastat* Intolerance leg cramps Statins [Statins-Hm* Intolerance leg cramping with most statins Vytorin 09/01 [Ezet* Intolerance leg cramping lovastatin 40 mg tablet Take 2 tablets by mouth daily at bedtime. For cholesterol. metFORMIN ER (GLUCOPHAGE XR) 500 mg 24 hr tablet Take 2 tablets by mouth daily with breakfast. amLODIPine (NORVASC) 5 mg tablet Take 0.5 tablets by mouth two times a day. blood sugar diagnostic (BLOOD GLUCOSE TEST) test strip Test blood sugar(s) 1 times daily. Dx: Type 2 DM - Controlled E11.9 Insulin: No ipratropium (ATROVENT) 0.02 % nebulizer solution Use 2.5 mL via nebulizer three times a day. OVER 5-15 MINUTES FOR WHEEZING OR SHORTNESS OF BREATH guaiFENesin (MUCINEX) 600 mg 12 hr tablet Take 1 tablet by mouth two times a day. omeprazole (PRILOSEC) 40 mg capsule Take 1 capsule by mouth two times a day. atenolol (TENORMIN) 50 mg tablet Take 1 tablet by mouth two times a day. Lancets lancets Test blood sugar(s) one times daily. Dx: Type 2 DM - Controlled E11.9 Insulin: No Lancing Device misc 1 Each once daily. Lancets (ONETOUCH ULTRASOFT LANCETS) lancets Test blood sugars 1 time daily. Dx: Type 2 DM Controlled E11.9 Insulin: No lisinopril (ZESTRIL) 40 mg tablet Take 40 mg by mouth once daily. Mucus Clearing Device nadir Provide mucus clearing device furosemide (LASIX) 20 mg tablet Take 40 mg by mouth once daily. Using 20mg per day currently. HYDROcodone-acetaminophen (NORCO) 5-325 mg per tablet Take 1 tablet by mouth twice daily as needed. polyethylene glycol 3350 (MIRALAX, GLYCOLAX) 17 gram/dose powder Take 17 g by mouth once daily. aspirin, enteric coated (ASPIRIN, EN (more content not included)... [facility] 10-31-2024 Telephone encounter Note Patient was last seen by Raoul VALENTINO 10/28/24. Refill appropriate [facility] 10-31-2024 Miscellaneous Notes Patient was last seen by Raoul VALENTINO 10/28/24. Refill appropriate documented in this encounter [facility] 10-28-2024 Note Addended by: KELLY ALEJANDRO on: 10/28/2024 11:37 AM Modules accepted: Orders [facility] 10-28-2024 Note Addended by: KELLY ALEJANDRO on: 10/28/2024 11:37 AM Modules accepted: Orders [facility] 10-28-2024 Miscellaneous Notes Addended by: KELLY ALEJANDRO on: 10/28/2024 11:37 AM Modules accepted: Orders documented in this encounter [facility] 10-28-2024 History of Present illness Narrative General Cardiology Returning Patient Clinic Visit [facility] 10/28/2024 Anu Briggs, WOOD B[employer]ER [address] [place] [address], 3rd Floor Medical Office [facility] [id number] [facility], physician's office 10/28/2024 Patient: Ayleen Millan Date of : 1940 (83 y.o.) Referring Provider: No ref. provider found PCP: Alonso Wheat MD Chief Complaint: Follow-up Date of Service: 10/28/2024 Assessment and Plan: History of hypertrophic cardiomyopathy. Patient has not had genetic testing, however he has no biological children therefore genetic testing is less concerning. No known family history. Cardiac MRI obtained in 2020 consistent with hypertrophic cardiomyopathy. Septal wall thickness of 2 cm. Minimal myocardial scar. Mild chordal systolic anterior motion of the mitral valve. No significant MR. No significant increase in LVOT velocity. Echocardiogram done 02/29/2024 showing maximal septal thickness of 1.7 cm, no evidence of LVOT obstruction. RV size and systolic function normal. Grade 1 diastolic dysfunction. Mild mitral valve regurg. Overall unchanged from previous echo 2021. Hypertension; Patient states his blood pressures have been running in the 140s and 150s at home, he does not take his blood pressure every day have asked him to take his blood pressure daily for the next week and call those readings into see if his blood pressure medications need adjusted. Currently he is on Amlodipine 2.5 mg twice daily, atenolol 50 mg twice daily, Lasix 20 mg daily, lisinopril 40 mg daily. He will continue these until we review his blood pressure readings and adjust as necessary. It has been a pleasure caring for this patient. Please don't hesitate to reach out to my office directly with any questions or concerns. Follow-up: Dr. Burciaga in 6 months Anu Briggs, MSN, [employer] [facility] P:[phone] F:[phone] History of Present Illness: Ayleen Millan is a 83 y.o. man with a past medical history of reported hypertrophic cardiomyopathy with hypertension hyperlipidemia osteoarthritis and reflux who was last seen in the office by Dr. Burciaga on 02/11/2024 In the office today the patient endorses remaining functionally active. From a cardiovascular standpoint he seems to be doing well. He denies headache, visual changes, syncope, he occasionally has dizziness in the morning. Have asked him to take his blood pressure the next time he experiences dizziness. He denies chest pain, palpitations, orthopnea or PND he denies exertional dyspnea. He does state occasionally he does get short of breath. He denies abdominal pain or bloating, he denies swelling in his lower extremities. Objective Review of Systems: All systems were reviewed and noted to be negative unless otherwise stated in HPI. Past Medical History: Diagnosis Date Cardiomyopathy (HCC) GERD (gastroesophageal reflux disease) Hyperlipidemia Hypertension Hypertrophic cardiomyopathy (HCC) Osteoarthrosis Prostate cancer (HCC) Renal cyst 2012 Past Surgical History: Procedure Laterality Date CARDIAC CATHETERIZATION 12/19/2004 EF 75%, Valve functions within normal limits CATARACT EXT/ECCE Bilateral COLONOSCOPY [facility] HEMORRHOIDECTOMY STAPLED HEMORRHOIDOPEXY (PPH) TUMOR REMOVAL Middle of back Family History Problem Relation Age of Onset Heart attack Brother Social History Tobacco Use Smoking Status Never Smokeless Tobacco Never Allergies: Hydrocodone-acetaminophen, Tramadol, Atorvastatin calcium, Ezetimibe, Simvastatin, and Antnxko-bco-usy reductase inhibitors All of the above information has been reviewed at today's visit and modified if necessary. Home Medications: Current Outpatient Medications: amLODIPine (NORVASC) 2.5 MG tablet, Take 1 (one) tablet (2.5 mg total) by mouth 2 (two) times a day ., Disp: , Rfl: aspirin 81 MG EC tablet, Take 1 (one) tablet (81 mg total) by mouth daily ., Disp: , Rfl: atenolol (TENORMIN) 50 MG tablet, Take 1 (one) tablet (50 mg total) by mouth 2 (two) times a day., Disp: 180 tablet, Rfl: 3 calcium carbonate-vitamin D3 500 mg-10 mcg (400 unit) Tab, Take 500 mg by mouth daily, Disp: , Rfl: finasteride (PROSCAR) 5 mg tablet, Take 1 (one) tablet (5 mg total) by mouth daily ., Disp: , Rfl: furosemide (LASIX) 20 MG tablet, Take 1 (one) tablet (20 mg total) by mouth daily as needed ., Disp: 90 tablet, Rfl: 3 HYDROcodone-acetaminophen (NORCO) 5-325 mg per tablet, Take 1 (one) tablet by mouth 2 (two) times a day 2 prn ., Disp: , Rfl: lisinopriL (PRINIVIL,ZESTRIL) 40 MG tablet, Take 1 (one) tablet (40 mg total) by mouth daily Reasons: high blood pressure., Disp: 90 tablet, Rfl: 3 lovastatin (MEVACOR) 40 MG tablet, Take 2 (two) tablets (80 mg total) by mouth nightly ., Disp: , Rfl: metFORMIN (GLUCOPHAGE) 500 MG tablet, Take 1 (one) tablet (500 mg total) by mouth 2 (two) times a day with meals ., Disp: , Rfl: multivitamin (THERAGRAN) per tablet, Take 1 (one) tablet by mouth daily ., Disp: , Rfl: omeprazole (PRILOSEC) 40 MG capsule, Take 1 (one) capsule (40 mg total) by mouth 2 (two) times a day ., Disp: , Rfl: polyethylene glycol (MIRALAX) 17 gram powder, Take 17 (seventeen) g by mouth daily ., Disp: , Rfl: Physical Exam: BP 128/71 (BP Location: Right arm, Patient Position: Sitting, BP Cuff Size: X-large Adult) Pulse (!) 55 Ht 5' 9 Wt 94.8 kg (208 lb 14.4 oz) SpO2 96% BMI 30.85 kg/m Constitutional: Well appearing, no acute distress Neck: No JVD Cardiovascular: Regular rate and rhythm, no murmurs appreciated on today's exam, normal S1 and S2, no rubs or gallops Pulses: +2 dorsalis pedis pulses bilaterally Respiratory; clear to auscultation Abdomen; soft nontender Musculoskeletal: Normal range of motion. No cyanosis. No peripheral Edema Neurological: AOx3, moving all extremities normally Skin: Skin is warm and dry, normal hair pattern Psychiatric: Normal mood and affect, appropriate conversation Cardiovascular Studies: Echocardiogram 02/29/2024 1. This study was technically limited, Definity IV contrast was used to enhance endocardial definition. 2. Left ventricular systolic function is normal with an ejection fraction by Biplane Method of Discs of 68 %. Maximal septal thickness of 1.7 cm.. 3. No evidence of LVOT obstruction. 4. Right ventricular size and systolic function are normal. 5. There is grade 1 diastolic dysfunction, consistent with impaired relaxation and low or normal left atrial pressures. 6. There is mild mitral valve regurgitation. 7. Overall unchanged from previous echo from 2021 personally reviewed. Cardiac event monitor 04/14 No A-fib, average heart rate 64 range 52-95 Multiple events for dizziness lightheadedness associated with sinus rhythm 1 PVC noted Echocardiogram 07/14 Normal LV size septal wall hypertrophy measuring 1.9 cm. No LVOT obstruction. Normal RV size and function Mild MR normal RVSP Cardiac event monitor 01/24/2021 to 02/06/2021 for palpitation Patient had no A. fib, no atrial arrhythmias. 1 PVC noted. Diary symptoms associated with sinus rhythm and with his 1 PVC Cardiac MRI 11/30/2020. Maximal septal wall thickness was 2 cm. LVEF 76%. He had mild mid myocardial scar in the basal and mid inferior septal wall. Normal RV size and function. Mild chordal RAMÍREZ with no significant LVOT velocity. Normal T1 mapping. Labs: Lab Results Component Value Date GLUCOSE 152 (H) 02/11/2024 CALCIUM 8.7 02/11/2024 NA 139 02/11/2024 K 4.0 02/11/2024 CL 104 02/11/2024 BUN 14 02/11/2024 CREATININE 1.04 02/11/2024 Lab Results Component Value Date ALT 15 02/11/2024 AST 21 02/11/2024 ALKPHOS 75 02/11/2024 BILITOT 0.3 02/11/2024 No results found for: WBC, HGB, HCT, MCV, EXTMCV, PLT, RBC No results found for: CHOL, LDLCALC, LDLDIRECT, TRIG, HDL No results found for: HGBA1C Lab Results Component Value Date ALT 15 02/11/2024 AST 21 02/11/2024 ALKPHOS 75 02/11/2024 BILITOT 0.3 02/11/2024 The ASCVD Risk score (Gifty DK, et al., 2019) failed to calculate for the following reasons: The 2019 ASCVD risk score is only valid for ages 40 to 79 Anu Briggs MSN, TRANSPORTATION SECURITY OFFICER, ANP-C documented in this encounter [facility] 10-28-2024 History of Present illness Narrative General Cardiology Returning Patient Clinic Visit [facility] 10/28/2024 Anu Briggs CNP [address] [place] [address], 3rd Floor Medical Office [facility] [phone] [facility], physician's office 10/28/2024 Patient: Ayleen Millan Date of : 1940 (83 y.o.) Referring Provider: No ref. provider found PCP: Alonso Wheat MD Chief Complaint: Follow-up Date of Service: 10/28/2024 Assessment and Plan: History of hypertrophic cardiomyopathy. Patient has not had genetic testing, however he has no biological children therefore genetic testing is less concerning. No known family history. Cardiac MRI obtained in 2020 consistent with hypertrophic cardiomyopathy. Septal wall thickness of 2 cm. Minimal myocardial scar. Mild chordal systolic anterior motion of the mitral valve. No significant MR. No significant increase in LVOT velocity. Echocardiogram done 02/29/2024 showing maximal septal thickness of 1.7 cm, no evidence of LVOT obstruction. RV size and systolic function normal. Grade 1 diastolic dysfunction. Mild mitral valve regurg. Overall unchanged from previous echo 2021. Hypertension; Patient states his blood pressures have been running in the 140s and 150s at home, he does not take his blood pressure every day have asked him to take his blood pressure daily for the next week and call those readings into see if his blood pressure medications need adjusted. Currently he is on Amlodipine 2.5 mg twice daily, atenolol 50 mg twice daily, Lasix 20 mg daily, lisinopril 40 mg daily. He will continue these until we review his blood pressure readings and adjust as necessary. It has been a pleasure caring for this patient. Please don't hesitate to reach out to my office directly with any questions or concerns. Follow-up: Dr. Burciaga in 6 months Anu Briggs, MSN, [employer] [facility] P:[phone] F:[phone] History of Present Illness: Ayleen Millan is a 83 y.o. man with a past medical history of reported hypertrophic cardiomyopathy with hypertension hyperlipidemia osteoarthritis and reflux who was last seen in the office by Dr. Burciaga on 02/11/2024 In the office today the patient endorses remaining functionally active. From a cardiovascular standpoint he seems to be doing well. He denies headache, visual changes, syncope, he occasionally has dizziness in the morning. Have asked him to take his blood pressure the next time he experiences dizziness. He denies chest pain, palpitations, orthopnea or PND he denies exertional dyspnea. He does state occasionally he does get short of breath. He denies abdominal pain or bloating, he denies swelling in his lower extremities. Objective Review of Systems: All systems were reviewed and noted to be negative unless otherwise stated in HPI. Past Medical History: Diagnosis Date Cardiomyopathy (HCC) GERD (gastroesophageal reflux disease) Hyperlipidemia Hypertension Hypertrophic cardiomyopathy (HCC) Osteoarthrosis Prostate cancer (HCC) Renal cyst 2012 Past Surgical History: Procedure Laterality Date CARDIAC CATHETERIZATION 12/19/2004 EF 75%, Valve functions within normal limits CATARACT EXT/ECCE Bilateral COLONOSCOPY [facility] HEMORRHOIDECTOMY STAPLED HEMORRHOIDOPEXY (PPH) TUMOR REMOVAL Middle of back Family History Problem Relation Age of Onset Heart attack Brother Social History Tobacco Use Smoking Status Never Smokeless Tobacco Never Allergies: Hydrocodone-acetaminophen, Tramadol, Atorvastatin calcium, Ezetimibe, Simvastatin, and Ntzsgoo-mwt-cri reductase inhibitors All of the above information has been reviewed at today's visit and modified if necessary. Home Medications: Current Outpatient Medications: amLODIPine (NORVASC) 2.5 MG tablet, Take 1 (one) tablet (2.5 mg total) by mouth 2 (two) times a day ., Disp: , Rfl: aspirin 81 MG EC tablet, Take 1 (one) tablet (81 mg total) by mouth daily ., Disp: , Rfl: atenolol (TENORMIN) 50 MG tablet, Take 1 (one) tablet (50 mg total) by mouth 2 (two) times a day., Disp: 180 tablet, Rfl: 3 calcium carbonate-vitamin D3 500 mg-10 mcg (400 unit) Tab, Take 500 mg by mouth daily, Disp: , Rfl: finasteride (PROSCAR) 5 mg tablet, Take 1 (one) tablet (5 mg total) by mouth daily ., Disp: , Rfl: furosemide (LASIX) 20 MG tablet, Take 1 (one) tablet (20 mg total) by mouth daily as needed ., Disp: 90 tablet, Rfl: 3 HYDROcodone-acetaminophen (NORCO) 5-325 mg per tablet, Take 1 (one) tablet by mouth 2 (two) times a day 2 prn ., Disp: , Rfl: lisinopriL (PRINIVIL,ZESTRIL) 40 MG tablet, Take 1 (one) tablet (40 mg total) by mouth daily Reasons: high blood pressure., Disp: 90 tablet, Rfl: 3 lovastatin (MEVACOR) 40 MG tablet, Take 2 (two) tablets (80 mg total) by mouth nightly ., Disp: , Rfl: metFORMIN (GLUCOPHAGE) 500 MG tablet, Take 1 (one) tablet (500 mg total) by mouth 2 (two) times a day with meals ., Disp: , Rfl: multivitamin (THERAGRAN) per tablet, Take 1 (one) tablet by mouth daily ., Disp: , Rfl: omeprazole (PRILOSEC) 40 MG capsule, Take 1 (one) capsule (40 mg total) by mouth 2 (two) times a day ., Disp: , Rfl: polyethylene glycol (MIRALAX) 17 gram powder, Take 17 (seventeen) g by mouth daily ., Disp: , Rfl: Physical Exam: BP 128/71 (BP Location: Right arm, Patient Position: Sitting, BP Cuff Size: X-large Adult) Pulse (!) 55 Ht 5' 9 Wt 94.8 kg (208 lb 14.4 oz) SpO2 96% BMI 30.85 kg/m Constitutional: Well appearing, no acute distress Neck: No JVD Cardiovascular: Regular rate and rhythm, no murmurs appreciated on today's exam, normal S1 and S2, no rubs or gallops Pulses: +2 dorsalis pedis pulses bilaterally Respiratory; clear to auscultation Abdomen; soft nontender Musculoskeletal: Normal range of motion. No cyanosis. No peripheral Edema Neurological: AOx3, moving all extremities normally Skin: Skin is warm and dry, normal hair pattern Psychiatric: Normal mood and affect, appropriate conversation Cardiovascular Studies: Echocardiogram 02/29/2024 1. This study was technically limited, Definity IV contrast was used to enhance endocardial definition. 2. Left ventricular systolic function is normal with an ejection fraction by Biplane Method of Discs of 68 %. Maximal septal thickness of 1.7 cm.. 3. No evidence of LVOT obstruction. 4. Right ventricular size and systolic function are normal. 5. There is grade 1 diastolic dysfunction, consistent with impaired relaxation and low or normal left atrial pressures. 6. There is mild mitral valve regurgitation. 7. Overall unchanged from previous echo from 2021 personally reviewed. Cardiac event monitor 04/14 No A-fib, average heart rate 64 range 52-95 Multiple events for dizziness lightheadedness associated with sinus rhythm 1 PVC noted Echocardiogram 07/14 Normal LV size septal wall hypertrophy measuring 1.9 cm. No LVOT obstruction. Normal RV size and function Mild MR normal RVSP Cardiac event monitor 01/24/2021 to 02/06/2021 for palpitation Patient had no A. fib, no atrial arrhythmias. 1 PVC noted. Diary symptoms associated with sinus rhythm and with his 1 PVC Cardiac MRI 11/30/2020. Maximal septal wall thickness was 2 cm. LVEF 76%. He had mild mid myocardial scar in the basal and mid inferior septal wall. Normal RV size and function. Mild chordal RAMÍREZ with no significant LVOT velocity. Normal T1 mapping. Labs: Lab Results Component Value Date GLUCOSE 152 (H) 02/11/2024 CALCIUM 8.7 02/11/2024 NA 139 02/11/2024 K 4.0 02/11/2024 CL 104 02/11/2024 BUN 14 02/11/2024 CREATININE 1.04 02/11/2024 Lab Results Component Value Date ALT 15 02/11/2024 AST 21 02/11/2024 ALKPHOS 75 02/11/2024 BILITOT 0.3 02/11/2024 No results found for: WBC, HGB, HCT, MCV, EXTMCV, PLT, RBC No results found for: CHOL, LDLCALC, LDLDIRECT, TRIG, HDL No results found for: HGBA1C Lab Results Component Value Date ALT 15 02/11/2024 AST 21 02/11/2024 ALKPHOS 75 02/11/2024 BILITOT 0.3 02/11/2024 The ASCVD Risk score (Gifty DK, et al., 2019) failed to calculate for the following reasons: The 2019 ASCVD risk score is only valid for ages 40 to 79 Anu Briggs MSN, TRANSPORTATION SECURITY OFFICER, ANP-C documented in this encounter [facility] 10-28-2024 Note General Cardiology R eturning Patient Clinic Visit [facility] 10/28/2024 Anu Briggs CNP [address] [place] [address] 3rd Floor Medical Office [facility] [id number] [facility], physician's office 10/28/2024 Patient: Ayleen Millan Date of : 1940 (83 y.o.) Referring Provider: No ref. provider found PCP: Alonso Wheat MD Chief Complaint: Follow-up Date of Service: 10/28/2024 Assessment and Plan: History of hypertrophic cardiomyopathy. Patient has not had genetic testing, however he has no biological children therefore genetic testing is less concerning. No known family history. Cardiac MRI obtained in 2020 consistent with hypertrophic cardiomyopathy. Septal wall thickness of 2 cm. Minimal myocardial scar. Mild chordal systolic anterior motion of the mitral valve. No significant MR. No significant increase in LVOT velocity. Echocardiogram done 02/29/2024 showing maximal septal thickness of 1.7 cm, no evidence of LVOT obstruction. RV size and systolic function normal. Grade 1 diastolic dysfunction. Mild mitral valve regurg. Overall unchanged from previous echo 2021. Hypertension; Patient states his blood pressures have been running in the 140s and 150s at home, he does not take his blood pressure every day have asked him to take his blood pressure daily for the next week and call those readings into see if his blood pressure medications need adjusted. Currently he is on Amlodipine 2.5 mg twice daily, atenolol 50 mg twice daily, Lasix 20 mg daily, lisinopril 40 mg daily. He will continue these until we review his blood pressure readings and adjust as necessary. It has been a pleasure caring for this patient. Please don't hesitate to reach out to my office directly with any questions or concerns. Follow-up: Dr. Burciaga in 6 months Anu Briggs, MSN, WOOD B[employer]ER [facility] P:[phone] F:[phone] ------ History of Present Illness: Ayleen Millan is a 83 y.o. man with a past medical history of reported hypertrophic cardiomyopathy with hypertension hyperlipidemia osteoarthritis and reflux who was last seen in the office by Dr. Burciaga on 02/11/2024 In the office today the patient endorses remaining functionally active. From a cardiovascular standpoint he seems to be doing well. He denies headache, visual changes, syncope, he occasionally has dizziness in the morning. Have asked him to take his blood pressure the next time he experiences dizziness. He denies chest pain, palpitations, orthopnea or PND he denies exertional dyspnea. He does state occasionally he does get short of breath. He denies abdominal pain or bloating, he denies swelling in his lower extremities. Objective Review of Systems: All systems were reviewed and noted to be negative unless otherwise stated in HPI. Past Medical History: Diagnosis Date Cardiomyopathy (HCC) GERD (gastroesophageal reflux disease) Hyperlipidemia Hypertension Hypertrophic cardiomyopathy (HCC) Osteoarthrosis Prostate cancer (HCC) Renal cyst 2012 Past Surgical History: Procedure Laterality Date CARDIAC CATHETERIZATION 12/19/2004 EF 75%, Valve functions within normal limits CATARACT EXT/ECCE Bilateral COLONOSCOPY [facility] HEMORRHOIDECTOMY STAPLED HEMORRHOIDOPEXY (PPH) TUMOR REMOVAL Middle of back Family History Problem Relation Age of Onset Heart attack Brother Social History Tobacco Use Smoking Status Never Smokeless Tobacco Never Allergies: Hydrocodone-acetaminophen, Tramadol, Atorvastatin calcium, Ezetimibe, Simvastatin, and Leqquww-bjk-pjl reductase inhibitors All of the above information has been reviewed at today's visit and modified if necessary. Home Medications: Current Outpatient Medications: amLODIPine (NORVASC) 2.5 MG tablet, Take 1 (one) tablet (2.5 mg total) by mouth 2 (two) times a day ., Disp: , Rfl: aspirin 81 MG EC tablet, Take 1 (one) tablet (81 mg total) by mouth daily ., Disp: , Rfl: atenolol (TENORMIN) 50 MG tablet, Take 1 (one) tablet (50 mg total) by mouth 2 (two) times a day., Disp: 180 tablet, Rfl: 3 calcium carbonate-vitamin D3 500 mg-10 mcg (400 unit) Tab, Take 500 mg by mouth daily, Disp: , Rfl: finasteride (PROSCAR) 5 mg tablet, Take 1 (one) tablet (5 mg total) by mouth daily ., Disp: , Rfl: furosemide (LASIX) 20 MG tablet, Take 1 (one) tablet (20 mg total) by mouth daily as needed ., Disp: 90 tablet, Rfl: 3 HYDROcodone-acetaminophen (NORCO) 5-325 mg per tablet, Take 1 (one) tablet by mouth 2 (two) times a day 2 prn ., Disp: , Rfl: lisinopriL (PRINIVIL,ZESTRIL) 40 MG tablet, Take 1 (one) tablet (40 mg total) by mouth daily Reasons: high blood pressure., Disp: 90 tablet (more content not included)... [facility] 10-27-2024 Instructions Kelly Alejandro RN - 10/27/2024 3:24 PM EST Thank you for your visit today. Please don't hesitate to call me at [phone] or send a [employer] message with any questions that you may have. How to contact your Care Team: Provider: Dr. Cee Burciaga Nurse: Lala Bradley RN MA: Scott Marin Fax: In case of an emergency please call 911. REFILLS: When in need for refills please call your care team or the office at [phone]. Please allow for at least 48 hours for your doctor to refill your medication. Please include medication name, pharmacy name, and specify 30-day or 90-day supply. Please check with your pharmacy within 24 hours of request for your refill. You must follow up as directed to continue current refills. Thank you! FOR YOUR NEXT APPOINTMENT WITH DR. BURCIAGA: PLEASE BRING A LIST OF YOUR CURRENT MEDICATIONS OR BRING YOUR MEDICATION BOTTLES WITH YOU MyChart: As a reminder, please do not use [employer] to send any messages requiring urgent attention. By selecting to send a message, you acknowledge you are seeking medical advice for a non urgent issue. Please allow up to two days for a response. Messages are not monitored evenings and weekends. Scheduling Needs: For any testing/appointment needs please call the Scheduling Team at [phone]. Test Results: We will communicate all test results either by phone or [employer] according to your preference. You may initially receive your results immediately via [employer], however, these may not have your physician comments or recommendations yet. After Hours: Please keep in mind that your provider is not in the office everyday of the week. I can reach the provider with your concerns Thursday thru Thursday during business hours. We have an after hours marketing communications manager service for urgent concerns, for urgent concerns please call our main office number [phone]. Please do not call my direct number for urgent needs after hours, this will not connect you with the marketing communications manager service. We cannot text you on your personal phone or message you on your personal email as this is not a secure communication system for your health care. For emergencies, please call 911 or go to the nearest hospital for an evaluation. documented in this encounter [facility] 10-27-2024 Instructions Kelly Alejandro RN - 10/27/2024 3:24 PM EST Thank you for your visit today. Please don't hesitate to call me at [phone] or send a [employer] message with any questions that you may have. How to contact your Care Team: Provider: Dr. Cee Burciaga Nurse: Lala Bradley RN MA: Scott Marin Fax: In case of an emergency please call 911. REFILLS: When in need for refills please call your care team or the office at [phone]. Please allow for at least 48 hours for your doctor to refill your medication. Please include medication name, pharmacy name, and specify 30-day or 90-day supply. Please check with your pharmacy within 24 hours of request for your refill. You must follow up as directed to continue current refills. Thank you! FOR YOUR NEXT APPOINTMENT WITH DR. BURCIAGA: PLEASE BRING A LIST OF YOUR CURRENT MEDICATIONS OR BRING YOUR MEDICATION BOTTLES WITH YOU MyChart: As a reminder, please do not use [employer] to send any messages requiring urgent attention. By selecting to send a message, you acknowledge you are seeking medical advice for a non urgent issue. Please allow up to two days for a response. Messages are not monitored evenings and weekends. Scheduling Needs: For any testing/appointment needs please call the Scheduling Team at [phone]. Test Results: We will communicate all test results either by phone or [employer] according to your preference. You may initially receive your results immediately via [employer], however, these may not have your physician comments or recommendations yet. After Hours: Please keep in mind that your provider is not in the office everyday of the week. I can reach the provider with your concerns Thursday thru Thursday during business hours. We have an after hours marketing communications manager service for urgent concerns, for urgent concerns please call our main office number [phone]. Please do not call my direct number for urgent needs after hours, this will not connect you with the marketing communications manager service. We cannot text you on your personal phone or message you on your personal email as this is not a secure communication system for your health care. For emergencies, please call 911 or go to the nearest hospital for an evaluation. documented in this encounter [facility] 10-24-2024 History of Present illness Narrative Radiology Service Progress Note PATIENT NAME: Ayleen Millan DATE OF SERVICE: October 24, 2024 TIME: 2:59 PM PATIENT IDENTITY VERIFICATION COMPLETED USING TWO (2) IDENTIFIERS: Name and Date of confirmed by patient verbally. FALL SCREENING: Has the patient had 2 falls in the last year or 1 fall with injury or currently using an Ambulatory Assistive Device (Walker, Cane, Wheelchair, Crutches, etc.)? No PATIENT GENDER DATA: Male PATIENT RELEVANT IMPLANT DATA REVIEWED: Yes PATIENT PRESENTS WITH AN IMPLANTABLE OR ATTACHED DYE WEIGHER: No RADIOLOGY DEPARTMENT: CT; Exam(s) Completed: Chest PERIPHERAL IV DATA: Not applicable SIGNED BY: RT Kimberly(Kiana) October 24, 2024 2:59 PM documented in this encounter [facility] 10-24-2024 Note HNO ID: [id number] Author: CHELLY GREEN RT(Kiana) Service: ? Author Type: Risk Control Consultant Type: Progress Notes Filed: 10/24/2024 14:59 Note Text: Radiology Service Progress Note PATIENT NAME: Ayleen Millan DATE OF SERVICE: October 24, 2024 TIME: 2:59 PM PATIENT IDENTITY VERIFICATION COMPLETED USING TWO (2) IDENTIFIERS: Name and Date of confirmed by patient verbally. FALL SCREENING: Has the patient had 2 falls in the last year or 1 fall with injury or currently using an Ambulatory Assistive Device (Walker, Cane, Wheelchair, Crutches, etc.)? No PATIENT GENDER DATA: Male PATIENT RELEVANT IMPLANT DATA REVIEWED: Yes PATIENT PRESENTS WITH AN IMPLANTABLE OR ATTACHED DYE WEIGHER: No RADIOLOGY DEPARTMENT: CT; Exam(s) Completed: Chest PERIPHERAL IV DATA: Not applicable SIGNED BY: RT Kimberly(R) October 24, 2024 2:59 PM [facility] 10-24-2024 Note HNO ID: [id number] Author: DELORES STRICKLAND RPFT Service: ? Author Type: Respiratory Therapist Type: Progress Notes Filed: 10/24/2024 11:49 Note Text: PULM FUNCTION: Provider: Svetlana Jaeger MD Assisting Tech: Delores Strickland RPBANDAR Spirometry: 1 DLCO: 1 LV - Box: 1 [facility] 10-24-2024 History of Present illness Narrative PULM FUNCTION: Provider: Svetlana Jaeger MD Assisting Tech: Delores Strickland, RPBANDAR Spirometry: 1 DLCO: 1 LV - Box: 1 documented in this encounter [facility] 09-22-2024 Telephone encounter Note I called pt and gave him requested information. He verbalized understanding and denied further questions. Bladder symptoms have changed in the last month or so. He has a consultation with a urologist next week. [facility] 09-22-2024 Miscellaneous Notes I called pt and gave him requested information. He verbalized understanding and denied further questions. Bladder symptoms have changed in the last month or so. He has a consultation with a urologist next week. Spouse called requesting information- when did patient have radiation, does he need a follow up? She also states he is having some urology problems and is having a urology consult. documented in this encounter [facility] 09-22-2024 Telephone encounter Note Spouse called requesting information- when did patient have radiation, does he need a follow up? She also states he is having some urology problems and is having a urology consult. [facility] Work Phone: 09-21-2024 Note HNO ID: [id number] Author: ALONSO WHEAT MD Service: ? Author Type: Physician Type: Progress Notes Filed: 09/21/2024 12:34 Note Text: This note was created using [employer]. Subjective Ayleen Millan is a 83 year old male. He was doing reasonably well, other than he started having spells of gross hematuria this past week. He did not feel ill, and had no pain, fever, nausea, vomiting, fever, or chills. His diabetes mellitus, hypertension, and lipids were historically controlled. Review of Systems Constitutional: Negative for fatigue and fever. Respiratory: Negative for cough, shortness of breath and wheezing. Cardiovascular: Negative for chest pain, palpitations and leg swelling. Gastrointestinal: Negative for abdominal pain, constipation, diarrhea, nausea and vomiting. Genitourinary: Negative for difficulty urinating, dysuria, flank pain and urgency. Musculoskeletal: Positive for back pain. Neurological: Negative for dizziness and headaches. 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 Benign Prostatic Hyperplasia With Lower Urinary Tract Symptoms Lumbago Hearing Loss in Right Ear History of Prostate Cancer Obesity, Class I, Bmi 30-34.9 Controlled Type 2 Diabetes Mellitus Without Complication, Without Long-Term Current Use of Insulin (Hcc) Degenerative Tear of Acetabular Labrum of Right Hip Ild (Interstitial Lung Disease) (Hcc) Objective BP 121/71 (BP Site: Left Arm, BP Position: Sitting, BP Cuff Size: Large Adult) Pulse 61 Temp 36.2 ?C (97.1 ?F) (Temporal) Resp 20 Ht 174.2 cm (5' 8.6) Wt 96.6 kg (212 lb 15.4 oz) BMI 31.82 kg/m? Physical Exam Constitutional: General: He is not in acute distress. Appearance: He is not ill-appearing. Cardiovascular: Rate and Rhythm: Normal rate and regular rhythm. Heart sounds: No murmur heard. No gallop. Pulmonary: Effort: No respiratory distress. Breath sounds: Examination of the right-lower field reveals rales. Examination of the left-lower field reveals rales. Rales present. No wheezing. Abdominal: General: There is no distension. Palpations: Abdomen is soft. Tenderness: There is no abdominal tenderness. There is no right CVA tenderness or left CVA tenderness. Musculoskeletal: Right lower leg: No edema. Left lower leg: No edema. Neurological: Mental Status: He is alert. Latest Ref Rng 09/14/2024 09/21/2024 GLUCOSE UA (POCT) Negative mg/dL Negative BILIRUBIN UA (POCT) Negative Negative KETONE UA (POCT) Negative mg/dL Negative SPECIFIC GRAVITY UA (POCT) 1.005 - 1.030 1.010 HEMOGLOBIN/BLOOD UA (POCT) Negative Negative PH UA (POCT) 4.5 - 8.0 6.0 PROTEIN UA (POCT) Negative mg/dL Negative UROBILINOGEN UA (POCT) Normal E.U./dL 0.2 NITRITE UA (POCT) Negative Negative LEUKOCYTES UA (POCT) Negative Negative COLOR UA (POCT) Light yellow CLARITY UA (POCT) Clear Hemoglobin A1C 4.3 - 5.6 % 6.9 (H) Estimated Average Glucose mg/dL 151 Legend: (H) High Assessment and Plan 1. Medicare annual wellness visit, subsequent - ICD9: V70.0, ICD10: Z00.00 (primary diagnosis) - See wellness visit. 2. Screening for depression - ICD9: V79.0, ICD10: Z13.31 - DEPRESSION SCREENING 3. Encounter for screening examination for other mental health and behavioral disorders - ICD9: V79.8, ICD10: Z13.39 - ANXIETY SCREENING 4. Hypertrophic cardiomyopathy (HCC) - ICD9: 425.18, ICD10: I42.2 - Stable. 5. Essential hypertension, benign - ICD9: 401.1, ICD10: I10 - Controlled - Continue current medications - COMPLETE BLOOD COUNT 6. Controlled type 2 diabetes mellitus without complication, without long-term current use of insulin (HCC) - ICD9: 250.00, ICD10: E11.9 - Controlled - Continue current medications - COMPREHENSIVE METABOLIC PANEL - LIPID PANEL BASIC - HEMOGLOBIN A1C - ALBUMIN/CREATININE RATIO, URINE 7. Gross hematuria - ICD9: 599.71, ICD10: R31.0 Shared medical decision making was done. He agreed to referral and preferred local urologist. - UA DIP, URINE (POC) - CONSULT TO UROLOGY Alonso Wheat MD [facility] 09-21-2024 History of Present illness Narrative This note was created using [employer]. Subjective Ayleen Millan is a 83 year old male. He was doing reasonably well, other than he started having spells of gross hematuria this past week. He did not feel ill, and had no pain, fever, nausea, vomiting, fever, or chills. His diabetes mellitus, hypertension, and lipids were historically controlled. Review of Systems Constitutional: Negative for fatigue and fever. Respiratory: Negative for cough, shortness of breath and wheezing. Cardiovascular: Negative for chest pain, palpitations and leg swelling. Gastrointestinal: Negative for abdominal pain, constipation, diarrhea, nausea and vomiting. Genitourinary: Negative for difficulty urinating, dysuria, flank pain and urgency. Musculoskeletal: Positive for back pain. Neurological: Negative for dizziness and headaches. 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 Benign Prostatic Hyperplasia With Lower Urinary Tract Symptoms Lumbago Hearing Loss in Right Ear History of Prostate Cancer Obesity, Class I, Bmi 30-34.9 Controlled Type 2 Diabetes Mellitus Without Complication, Without Long-Term Current Use of Insulin (Hcc) Degenerative Tear of Acetabular Labrum of Right Hip Ild (Interstitial Lung Disease) (Hcc) Objective BP 121/71 (BP Site: Left Arm, BP Position: Sitting, BP Cuff Size: Large Adult) Pulse 61 Temp 36.2 C (97.1 F) (Temporal) Resp 20 Ht 174.2 cm (5' 8.6) Wt 96.6 kg (212 lb 15.4 oz) BMI 31.82 kg/m Physical Exam Constitutional: General: He is not in acute distress. Appearance: He is not ill-appearing. Cardiovascular: Rate and Rhythm: Normal rate and regular rhythm. Heart sounds: No murmur heard. No gallop. Pulmonary: Effort: No respiratory distress. Breath sounds: Examination of the right-lower field reveals rales. Examination of the left-lower field reveals rales. Rales present. No wheezing. Abdominal: General: There is no distension. Palpations: Abdomen is soft. Tenderness: There is no abdominal tenderness. There is no right CVA tenderness or left CVA tenderness. Musculoskeletal: Right lower leg: No edema. Left lower leg: No edema. Neurological: Mental Status: He is alert. Latest Ref Rng 09/14/2024 09/21/2024 GLUCOSE UA (POCT) Negative mg/dL Negative BILIRUBIN UA (POCT) Negative Negative KETONE UA (POCT) Negative mg/dL Negative SPECIFIC GRAVITY UA (POCT) 1.005 - 1.030 1.010 HEMOGLOBIN/BLOOD UA (POCT) Negative Negative PH UA (POCT) 4.5 - 8.0 6.0 PROTEIN UA (POCT) Negative mg/dL Negative UROBILINOGEN UA (POCT) Normal E.U./dL 0.2 NITRITE UA (POCT) Negative Negative LEUKOCYTES UA (POCT) Negative Negative COLOR UA (POCT) Light yellow CLARITY UA (POCT) Clear Hemoglobin A1C 4.3 - 5.6 % 6.9 (H) Estimated Average Glucose mg/dL 151 Legend: (H) High Assessment and Plan 1. Medicare annual wellness visit, subsequent - ICD9: V70.0, ICD10: Z00.00 (primary diagnosis) - See wellness visit. 2. Screening for depression - ICD9: V79.0, ICD10: Z13.31 - DEPRESSION SCREENING 3. Encounter for screening examination for other mental health and behavioral disorders - ICD9: V79.8, ICD10: Z13.39 - ANXIETY SCREENING 4. Hypertrophic cardiomyopathy (HCC) - ICD9: 425.18, ICD10: I42.2 - Stable. 5. Essential hypertension, benign - ICD9: 401.1, ICD10: I10 - Controlled - Continue current medications - COMPLETE BLOOD COUNT 6. Controlled type 2 diabetes mellitus without complication, without long-term current use of insulin (HCC) - ICD9: 250.00, ICD10: E11.9 - Controlled - Continue current medications - COMPREHENSIVE METABOLIC PANEL - LIPID PANEL BASIC - HEMOGLOBIN A1C - ALBUMIN/CREATININE RATIO, URINE 7. Gross hematuria - ICD9: 599.71, ICD10: R31.0 Shared medical decision making was done. He agreed to referral and preferred local urologist. - UA DIP, URINE (POC) - CONSULT TO UROLOGY Alonso Wheat MD Images from the original note were not included. Ayleen Millan is a 83 year old male here for a Medicare wellness visit. Medicare Health Risk Assessment General Health Good Exercise: Minutes/Day 0 min Exercise: Days/Week 0 days Alcohol: Daily Use Never Alcohol: Drinks/Day Patient does not drink Alcohol: 6 or more drinks Never Feel off balance Yes Concerns: Teeth/Dentures No Concerns: Sexual function No Troubled by feelings None of the above Frequency: Eating healthy diet Several days ADLs requiring help Sitting or standing; Walking Safety precautions in home/vehicle Yes Smoke, vape, chews tobacco No Difficulty hearing Yes Difficulty seeing No Current Providers Specialists: I have reviewed specialist-related care of the patient in the medical record. 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 Jared Marques Pulmonary- Dr. Svetlana Jaeger. Medical/Family history review Reviewed and updated problem list, medical/surgical/family/social history, medications, and allergies. Opioid use review Opioid Medications (last 90 days) 06/24/2024 00:00 Opioid Medications hydrocodone/acetaminophen 1 tablet BID PRN ORAL (5-325 mg tab) Details Patient-reported medication Prescribed No opioid use on file in the last 90 days Does patient have risk factors for opioid abuse? No Pain overview Current pain concerns and treatment plan reviewed. Patient under the care of a specialist. Anxiety/Depression screening Recommendation: no further intervention at this time Cognitive screening Mini Cog Score: 4 Cognitive screening reviewed and No further action needed (score 3-5). Functional Observation Was the patient's Timed Up & Go test unsteady or >= 12 seconds? No Advance Care Planning Patient did not wish or was not able to name a surrogate decision maker or provide an advance care plan Measurements BP 121/71 (BP Site: Left Arm, BP Position: Sitting, BP Cuff Size: Large Adult) Pulse 61 Temp 36.2 C (97.1 F) (Temporal) Resp 20 Ht 174.2 cm (5' 8.6) Wt 96.6 kg (212 lb 15.4 oz) BMI 31.82 kg/m Vision Screening: Follows with optometry/ophthalmology Right: 20/50 Left: 20/ 50 Both: 20/40 Assessment/Plan Medicare annual wellness visit, subsequent (Z00.00) - Counseled on healthy diet and regular exercise - Fall avoidance information provided - Personalized prevention plan provided - Discussed need for and benefit of weight loss. BMI 31.82 kg/(m^2) documented in this encounter [facility] 09-21-2024 Instructions Alonso Wheat MD - 09/21/2024 11:34 AM EDT VACCINES RECOMMENDED. GET AT YOUR PHARMACY (Medicare D) Shingrix Vaccine(1 of 2) Never done DTaP,Tdap,Td Vaccine(1 - Tdap) due on 06/29/2011 RSV Vaccine(1 - 1-dose 75+ series) Never done Dilated Retinal Exam due on 10/14/2024 Screening schedule The following prevention plan is recommended: Depression Screening Never done Anxiety Screening Never done Shingrix Vaccine(1 of 2) Never done DTaP,Tdap,Td Vaccine(1 - Tdap) due on 06/29/2011 RSV Vaccine(1 - 1-dose 75+ series) Never done Advance Directive Discussion due on 11/23/2023 Dilated Retinal Exam due on 10/14/2024 WHAT YOU CAN DO TO PREVENT FALLS Many falls can be prevented. By making some changes, you can lower your chances of falling. Four things YOU can do to prevent falls for you* and your caregiver 1. Begin a regular exercise program Exercise is one of the most important ways to lower your chances of falling. It makes you stronger and helps you feel better. Exercises that improve balance and coordination (like Jorge Chi) are the most helpful. Lack of exercise leads to weakness and increases your chances of falling. Ask your doctor or health care provider about the best type of exercise program for you. 2. Have your health care provider review your medicines Have your doctor or pharmacist review all the medicines you take, even [id number] medicines. As you get older, the way medicines work in your body can change. Some medicines, or combinations of medicines, can make you sleepy or dizzy and can cause you to fall. 3. Have your vision checked Have your eyes checked by an eye doctor at least once a year. You may be wearing the wrong glasses or have a condition like glaucoma or cataracts that limits your vision. Poor vision can increase your chances of falling. 4. Make your home safer About half of all falls happen at home. To make your home safer: Remove things you can trip over (like papers, books, clothes, and shoes) from stairs and places where you walk. Remove small throw rugs or use double-sided tape to keep the rugs from slipping. Keep items you use often in cabinets you can reach easily without using a step stool. Have grab bars put in next to your toilet and in the tub or shower. Use non-slip mats in the bathtub and on shower floors. Improve the lighting in your home. As you get older, you need brighter lights to see well. Hang light-weight curtains or shades to reduce glare. Have handrails and lights put in on all staircases. Wear shoes both inside and outside the house. Avoid going barefoot or wearing slippers. For more information, contact: Centers for Disease Control and Prevention www.cdc.gov/injury * This information may not apply if you have certain medical conditions. documented in this encounter [facility] 09-21-2024 Note HNO ID: [id number] Author: ALONSO WHEAT MD Service: ? Author Type: Physician Type: Progress Notes Filed: 09/21/2024 12:34 Note Text: Ayleen Millan is a 83 year old male here for a Medicare wellness visit. Medicare Health Risk Assessment General Health Good Exercise: Minutes/Day 0 min Exercise: Days/Week 0 days Alcohol: Daily Use Never Alcohol: Drinks/Day Patient does not drink Alcohol: 6 or more drinks Never Feel off balance Yes Concerns: Teeth/Dentures No Concerns: Sexual function No Troubled by feelings None of the above Frequency: Eating healthy diet Several days ADLs requiring help Sitting or standing; Walking Safety precautions in home/vehicle Yes Smoke, vape, chews tobacco No Difficulty hearing Yes Difficulty seeing No Current Providers Specialists: I have reviewed specialist-related care of the patient in the medical record. 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 Jared Marques Pulmonary- Dr. Svetlana Jaeger. Medical/Family history review Reviewed and updated problem list, medical/surgical/family/social history, medications, and allergies. Opioid use review Opioid Medications (last 90 days) 06/24/2024 00:00 Opioid Medications hydrocodone/acetaminophen 1 tablet BID PRN ORAL (5-325 mg tab) Details Patient-reported medication Prescribed No opioid use on file in the last 90 days Does patient have risk factors for opioid abuse? No Pain overview Current pain concerns and treatment plan reviewed. Patient under the care of a specialist. Anxiety/Depression screening Recommendation: no further intervention at this time Cognitive screening Mini Cog Score: 4 Cognitive screening reviewed and No further action needed (score 3-5). Functional Observation Was the patient's Timed Up AND Go test unsteady or >= 12 seconds? No Advance Care Planning Patient did not wish or was not able to name a surrogate decision maker or provide an advance care plan Measurements BP 121/71 (BP Site: Left Arm, BP Position: Sitting, BP Cuff Size: Large Adult) Pulse 61 Temp 36.2 ?C (97.1 ?F) (Temporal) Resp 20 Ht 174.2 cm (5' 8.6) Wt 96.6 kg (212 lb 15.4 oz) BMI 31.82 kg/m? Vision Screening: Follows with optometry/ophthalmology Right: 20/50 Left: 20/ 50 Both: 20/40 Assessment/Plan Medicare annual wellness visit, subsequent (Z00.00) - Counseled on healthy diet and regular exercise - Fall avoidance information provided - Personalized prevention plan provided - Discussed need for and benefit of weight loss. BMI 31.82 kg/(m2) [facility] 09-05-2024 Telephone encounter Note Prescription Refill Information The patient has been identified by name and date of : Yes Caregiver verified no other encounters exist for this prescription request: Yes Caregiver confirmed with patient/requestor that no other refills are due, in the near future, with this provider at this time: Yes The last office visit in the department: 08/23/24 Does the patient have a future office visit with this provider/department: Yes 09/21/24 Requested Prescriptions Pending Prescriptions Disp Refills metFORMIN ER (GLUCOPHAGE XR) 500 mg 24 hr tablet 180 tablet 3 Sig: Take 2 tablets by mouth daily with breakfast. Rivka Torres LPN September 05, 2024 9:25 AM [facility] 09-05-2024 Miscellaneous Notes Prescription Refill Information The patient has been identified by name and date of : Yes Caregiver verified no other encounters exist for this prescription request: Yes Caregiver confirmed with patient/requestor that no other refills are due, in the near future, with this provider at this time: Yes The last office visit in the department: 08/23/24 Does the patient have a future office visit with this provider/department: Yes 09/21/24 Requested Prescriptions Pending Prescriptions Disp Refills metFORMIN ER (GLUCOPHAGE XR) 500 mg 24 hr tablet 180 tablet 3 Sig: Take 2 tablets by mouth daily with breakfast. Rivka Torres LPN September 05, 2024 9:25 AM documented in this encounter [facility] 08-23-2024 Note HNO ID: [id number] Author: ALONSO WHEAT MD Service: ? Author Type: Physician Type: Progress Notes Filed: 08/24/2024 08:27 Note Text: This note was created using Koducoriter. Subjective Patient presents with: Cough Ayleen Millan is a 83 year old male who presents with complaint of cough- dry and present all day for 2 weeks. He denies fever, headache, sore throat, dyspnea, wheezing, nausea, vomiting, diarrhea, shortness of breath, and myalgias. Treatments tried include Atrovent nebulizer with minor relief of symptoms. He had bronchiectasis and ILD followed by pulmonary. His had been ill with a cough as well, and his Covid home test was negative while 's viral panel was negative. Review of Systems Per HPI. 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 Benign Prostatic Hyperplasia With Lower Urinary Tract Symptoms Lumbago Hearing Loss in Right Ear History of Prostate Cancer Obesity, Class I, Bmi 30-34.9 Controlled Type 2 Diabetes Mellitus Without Complication, Without Long-Term Current Use of Insulin (Hcc) Degenerative Tear of Acetabular Labrum of Right Hip Ild (Interstitial Lung Disease) ([facility]) Current Outpatient Medications Medication Sig blood sugar diagnostic (BLOOD GLUCOSE TEST) test strip Test blood sugar(s) 1 times daily. Dx: Type 2 DM - Controlled E11.9 Insulin: No ipratropium (ATROVENT) 0.02 % nebulizer solution Use 2.5 mL via nebulizer three times a day. OVER 5-15 MINUTES FOR WHEEZING OR SHORTNESS OF BREATH guaiFENesin (MUCINEX) 600 mg 12 hr tablet Take 1 tablet by mouth two times a day. omeprazole (PRILOSEC) 40 mg capsule Take 1 capsule by mouth two times a day. atenolol (TENORMIN) 50 mg tablet Take 1 tablet by mouth two times a day. Lancets lancets Test blood sugar(s) one times daily. Dx: Type 2 DM - Controlled E11.9 Insulin: No Lancing Device misc 1 Each once daily. Lancets (ONETOUCH ULTRASOFT LANCETS) lancets Test blood sugars 1 time daily. Dx: Type 2 DM Controlled E11.9 Insulin: No lovastatin 40 mg tablet Take 2 tablets by mouth daily at bedtime. For cholesterol. metFORMIN ER (GLUCOPHAGE XR) 500 mg 24 hr tablet Take 2 tablets by mouth daily with breakfast. lisinopril (ZESTRIL) 40 mg tablet Take 40 mg by mouth once daily. Mucus Clearing Device nadir Provide mucus clearing device furosemide (LASIX) 20 mg tablet Take 40 mg by mouth once daily. Using 20mg per day currently. HYDROcodone-acetaminophen (NORCO) 5-325 mg per tablet Take 1 tablet by mouth twice daily as needed. polyethylene glycol 3350 (MIRALAX, GLYCOLAX) 17 gram/dose powder Take 17 g by mouth once daily. aspirin, enteric coated (ASPIRIN, ENTERIC COATED) 81 mg EC tablet Take 81 mg by mouth once daily. calcium carbonate 600 mg-cholecalciferol 200 units 600 mg-5 mcg (200 unit) tab Take 1 tablet by mouth twice daily. CENTRUM SILVER TAB amLODIPine (NORVASC) 5 mg tablet Take 0.5 tablets by mouth two times a day. predniSONE (DELTASONE) 20 mg tablet Take 1 tablet by mouth once daily for 5 days. No current facility-administered medications for this visit. Objective BP 124/64 (BP Site: Left Arm, BP Position: Sitting, BP Cuff Size: Large Adult) Pulse (!) 57 Temp 36.3 ?C (97.4 ?F) (Temporal) Wt 95.1 kg (209 lb 10.5 oz) BMI 31.65 kg/m? Physical Exam Constitutional: Appearance: He is not ill-appearing. HENT: Nose: No congestion or rhinorrhea. Mouth/Throat: Mouth: Mucous membranes are moist. Pharynx: Oropharynx is clear. No posterior oropharyngeal erythema. Eyes: Conjunctiva/sclera: Conjunctivae normal. Cardiovascular: Rate and Rhythm: Regular rhythm. Bradycardia present. Pulmonary: Effort: No respiratory distress. Comments: Few wheezes, chronic dry crackles at bases. Musculoskeletal: Right lower leg: No edema. Left lower leg: No edema. Lymphadenopathy: Cervical: No cervical adenopathy. Neurological: Mental Status: He is alert. Assessment and Plan 1. Bronchitis - ICD9: 490, ICD10: J40 (primary diagnosis) - PREDNISONE 20 MG TABLET 2. ILD (interstitial lung disease) (HCC) - ICD9: 515, ICD10: J84.9 - PREDNISONE 20 MG TABLET We agreed to treat with a bolus of prednisone. Discussed medication dosage, usage, goals of therapy, and side effects. Message if not better or if new symptoms arise. Alonso Wheat MD [facility] 08-23-2024 History of Present illness Narrative This note was created using NoteWriter. Subjective Patient presents with: Cough Ayleen Millan is a 83 year old male who presents with complaint of cough- dry and present all day for 2 weeks. He denies fever, headache, sore throat, dyspnea, wheezing, nausea, vomiting, diarrhea, shortness of breath, and myalgias. Treatments tried include Atrovent nebulizer with minor relief of symptoms. He had bronchiectasis and ILD followed by pulmonary. His had been ill with a cough as well, and his Covid home test was negative while 's viral panel was negative. Review of Systems Per HPI. 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 Benign Prostatic Hyperplasia With Lower Urinary Tract Symptoms Lumbago Hearing Loss in Right Ear History of Prostate Cancer Obesity, Class I, Bmi 30-34.9 Controlled Type 2 Diabetes Mellitus Without Complication, Without Long-Term Current Use of Insulin (Hcc) Degenerative Tear of Acetabular Labrum of Right Hip Ild (Interstitial Lung Disease) ([facility]) Current Outpatient Medications Medication Sig blood sugar diagnostic (BLOOD GLUCOSE TEST) test strip Test blood sugar(s) 1 times daily. Dx: Type 2 DM - Controlled E11.9 Insulin: No ipratropium (ATROVENT) 0.02 % nebulizer solution Use 2.5 mL via nebulizer three times a day. OVER 5-15 MINUTES FOR WHEEZING OR SHORTNESS OF BREATH guaiFENesin (MUCINEX) 600 mg 12 hr tablet Take 1 tablet by mouth two times a day. omeprazole (PRILOSEC) 40 mg capsule Take 1 capsule by mouth two times a day. atenolol (TENORMIN) 50 mg tablet Take 1 tablet by mouth two times a day. Lancets lancets Test blood sugar(s) one times daily. Dx: Type 2 DM - Controlled E11.9 Insulin: No Lancing Device misc 1 Each once daily. Lancets (ONETOUCH ULTRASOFT LANCETS) lancets Test blood sugars 1 time daily. Dx: Type 2 DM Controlled E11.9 Insulin: No lovastatin 40 mg tablet Take 2 tablets by mouth daily at bedtime. For cholesterol. metFORMIN ER (GLUCOPHAGE XR) 500 mg 24 hr tablet Take 2 tablets by mouth daily with breakfast. lisinopril (ZESTRIL) 40 mg tablet Take 40 mg by mouth once daily. Mucus Clearing Device nadir Provide mucus clearing device furosemide (LASIX) 20 mg tablet Take 40 mg by mouth once daily. Using 20mg per day currently. HYDROcodone-acetaminophen (NORCO) 5-325 mg per tablet Take 1 tablet by mouth twice daily as needed. polyethylene glycol 3350 (MIRALAX, GLYCOLAX) 17 gram/dose powder Take 17 g by mouth once daily. aspirin, enteric coated (ASPIRIN, ENTERIC COATED) 81 mg EC tablet Take 81 mg by mouth once daily. calcium carbonate 600 mg-cholecalciferol 200 units 600 mg-5 mcg (200 unit) tab Take 1 tablet by mouth twice daily. CENTRUM SILVER TAB amLODIPine (NORVASC) 5 mg tablet Take 0.5 tablets by mouth two times a day. predniSONE (DELTASONE) 20 mg tablet Take 1 tablet by mouth once daily for 5 days. No current facility-administered medications for this visit. Objective BP 124/64 (BP Site: Left Arm, BP Position: Sitting, BP Cuff Size: Large Adult) Pulse (!) 57 Temp 36.3 C (97.4 F) (Temporal) Wt 95.1 kg (209 lb 10.5 oz) BMI 31.65 kg/m Physical Exam Constitutional: Appearance: He is not ill-appearing. HENT: Nose: No congestion or rhinorrhea. Mouth/Throat: Mouth: Mucous membranes are moist. Pharynx: Oropharynx is clear. No posterior oropharyngeal erythema. Eyes: Conjunctiva/sclera: Conjunctivae normal. Cardiovascular: Rate and Rhythm: Regular rhythm. Bradycardia present. Pulmonary: Effort: No respiratory distress. Comments: Few wheezes, chronic dry crackles at bases. Musculoskeletal: Right lower leg: No edema. Left lower leg: No edema. Lymphadenopathy: Cervical: No cervical adenopathy. Neurological: Mental Status: He is alert. Assessment and Plan 1. Bronchitis - ICD9: 490, ICD10: J40 (primary diagnosis) - PREDNISONE 20 MG TABLET 2. ILD (interstitial lung disease) (HCC) - ICD9: 515, ICD10: J84.9 - PREDNISONE 20 MG TABLET We agreed to treat with a bolus of prednisone. Discussed medication dosage, usage, goals of therapy, and side effects. Message if not better or if new symptoms arise. Alonso Wheat MD documented in this encounter [facility] 08-01-2024 Telephone encounter Note Rocio/ Dr Burciaga 02/10/34, refill appropriate [facility] 08-01-2024 Miscellaneous Notes Rocio/ Dr Burciaga 02/10/34, refill appropriate documented in this encounter [facility] 04-22-2024 Telephone encounter Note Requested Prescriptions Pending Prescriptions Disp Refills blood sugar diagnostic (BLOOD GLUCOSE TEST) test strip 50 Strip 11 Sig: Test blood sugar(s) 1 times daily. Dx: Type 2 DM - Controlled E11.9 Insulin: No Date of last office visit in primary care: 03/18/2024 Date of next office visit in primary care: 09/21/2024 Please advise. Thank you. David Sewell MA. [facility] 04-22-2024 Miscellaneous Notes Requested Prescriptions Pending Prescriptions Disp Refills blood sugar diagnostic (BLOOD GLUCOSE TEST) test strip 50 Strip 11 Sig: Test blood sugar(s) 1 times daily. Dx: Type 2 DM - Controlled E11.9 Insulin: No Date of last office visit in primary care: 03/18/2024 Date of next office visit in primary care: 09/21/2024 Please advise. Thank you. David Sewell MA. documented in this encounter [facility] 04-21-2024 History of Present illness Narrative Images from the original note were not included. . [facility] [place] Note Patient name: Ayleen Millan PCP: Alonso Wheat MD CC: Follow-up ILD HPI: Ayleen Millan 83 year old male non-smoker with PMH significant for PAD, HTN, GERD, GI bleed due to AVM, prostate cancer s/p XRT, DM2, HOCM, ILD. Fibrotic lung disease dates back to 2012 without UIP/IPF pattern. No occupational exposures, no known drug exposure, no autoimmune disorder. He has had wheezing but intolerant of beta agonist due to tachyarrhythmias. At [facility], inhaled therapy trial with ipratropium bromide, Acapella/flutter device and continued surveillance of imaging and pulmonary function test for his interstitial lung disease. Unable to afford Atrovent inhaler. On occasion, will have blood streaked sputum in the morning. Occurs approximately once a month. Wheezing at night had resolved with use of acapella device but he stopped his regimen once symptoms improved. SOB is stable. No fevers, chills, or night sweats. No chest pain or recent URI. PAST MEDICAL HISTORY Diagnosis Date Allergic rhinitis, cause unspecified Arthritis AVM (arteriovenous malformation) of colon with hemorrhage 08/13/2017 Benign prostatic hyperplasia with lower urinary tract symptoms 03/08/2013 Bundle branch block, unspecified Carotid disease, bilateral ([facility]) 08/30/2015 [facility] SOLAR SKIN DAMAGE NOS 08/21/2008 Controlled type 2 diabetes mellitus without complication, without long-term current use of insulin ([facility]) 10/04/2019 Degenerative tear of acetabular labrum of right hip 07/19/2020 Diverticulosis of colon (without mention of hemorrhage) 08/13/2017 Duplicated ureter, 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 Nelson ILD (interstitial lung disease) ([facility]) 08/13/2020 Impaired fasting glucose 08/29/2011 Lumbago 12/11/2010 Orthostatic dizziness 10/04/2019 Other and unspecified disc disorder of cervical region 10/28/2005 Other and unspecified hyperlipidemia Prostate cancer ([facility]) 05/30/2016 Radiation therapy Renal cyst 09/29/2013 Unspecified gastritis and gastroduodenitis ALLERGIES Allergen Reactions Albuterol Intolerance tachycardia Tramadol Itching Lipitor [Atorvastat* Intolerance leg cramps Statins [Statins-Hm* Intolerance leg cramping with most statins Vytorin 09/01 [Ezet* Intolerance leg cramping guaiFENesin (MUCINEX) 600 mg 12 hr tablet Take 1 tablet by mouth two times a day. omeprazole (PRILOSEC) 40 mg capsule Take 1 capsule by mouth two times a day. atenolol (TENORMIN) 50 mg tablet Take 1 tablet by mouth two times a day. lovastatin 40 mg tablet Take 2 tablets by mouth daily at bedtime. For cholesterol. metFORMIN ER (GLUCOPHAGE XR) 500 mg 24 hr tablet Take 2 tablets by mouth daily with breakfast. lisinopril (ZESTRIL) 40 mg tablet Take 40 mg by mouth once daily. furosemide (LASIX) 20 mg tablet Take 40 mg by mouth once daily. Using 20mg per day currently. HYDROcodone-acetaminophen (NORCO) 5-325 mg per tablet Take 1 tablet by mouth twice daily as needed. amLODIPine (NORVASC) 5 mg tablet Take 1 tablet by mouth in the mornings and 1/2 tablet (2.5 mg) in the evenings polyethylene glycol 3350 (MIRALAX, GLYCOLAX) 17 gram/dose powder Take 17 g by mouth once daily. aspirin, enteric coated (ASPIRIN, ENTERIC COATED) 81 mg EC tablet Take 81 mg by mouth once daily. calcium carbonate 600 mg-cholecalciferol 200 units 600 mg-5 mcg (200 unit) tab Take 1 tablet by mouth twice daily. CENTRUM SILVER TAB ipratropium (ATROVENT) 0.02 % nebulizer solution Use 2.5 mL via nebulizer three times a day. OVER 5-15 MINUTES FOR WHEEZING OR SHORTNESS OF BREATH Lancets lancets Test blood sugar(s) one times daily. Dx: Type 2 DM - Controlled E11.9 Insulin: No Lancing Device misc 1 Each once daily. Lancets (ONETOUCH ULTRASOFT LANCETS) lancets Test blood sugars 1 time daily. Dx: Type 2 DM Controlled E11.9 Insulin: No blood sugar diagnostic (BLOOD GLUCOSE TEST) test strip Test blood sugar(s) 1 times daily. Dx: Type 2 DM - Controlled E11.9 Insulin: No Mucus Clearing Device nadir Provide mucus clearing device Social History Tobacco Use Smoking status: Never Smokeless tobacco: Never Vaping Use Vaping Use: Never used Substance Use Topics Alcohol use: Not Currently Comment: rare Drug use: No FAMILY HISTORY Problem Relation Age of Onset other (CHF) Mother other (Leukemia) Mother other (Lung Cancer) Father other (Melanoma) Sister Diabetes Sister Diabetes Brother Heart Brother other (colonic polyps) Brother other (bladder cancer) Brother other (Parkinson) Brother Multisystem atrophy Alcohol/Drug Brother PAST SURGICAL HISTORY Procedure Laterality Date CATARACT SURGERY, COMPLEX 07/2012 bilateral COLONOSCOPY FLX DX W/COLLJ SPEC WHEN PFRMD 05/17/2002 Colonoscopy COLONOSCOPY FLX DX W/COLLJ SPEC WHEN PFRMD 09/15/2008 Colonoscopy COLSC FLEXIBLE W/CONTROL BLEEDING ANY METHOD 08/13/2017 diverticulosis, AVM rectum treated with Argon b.l. EP COM EPS/INDUCTION ARRHYTH 08/2003 ESOPHAGOGASTRODUODENOSCOPY TRANSORAL DIAGNOSTIC 05/17/2002 EGD ESOPHAGOGASTRODUODENOSCOPY TRANSORAL DIAGNOSTIC 01/24/2019 EGD ESOPHAGOGASTRODUODENOSCOPY TRANSORAL DIAGNOSTIC 08/01/2021 EXC TUMOR SOFT TISS BACK/FLANK SUBFASCIAL 5+CM 11/04/2013 [id number] lipoma EYE SURGERY HX HEMORRHOIDOPEXY BY STAPLING 11/03/2008 LEFT HEART CATH,PERCUTANEOUS 11/2004 Cardiac cath, heart, [facility]. PROSTATE BIOPSY 04/01/2016 SIGMOIDOSCOPY FLX DX W/COLLJ SPEC BR/WA IF PFRMD 05/09/2004 Sigmoidoscopy, flexible PMH, Social history, family history and surgical history reviewed and updated ine EMR REVIEW OF SYSTEMS: CONSTITUTIONAL: No fevers, chills, nightsweats, unintended weight loss HEENT: Denies nasal congestion/sinus symptoms, allergy problems. CARDIOVASCULAR: No chest pain, palpitations, orthopnea. Some edema PULM: See HPI GI: No dysphagia/odynophagia, problematic reflux NEURO: No new balance problems, peripheral weakness/paresthesias or numbness of concern. MUSC-SKEL: No new joint pain, swelling, or erythema. INTEGUMENTARY: No new skin changes PHYSICAL EXAMINATION: Wt 215 lb (97.5kg) BP 122/72, P 50, RR14, SpO2 89% General Appearance: Obese, NAD. Skin: Skin color, texture, turgor normal, no suspicious rashes or lesions. Head: Normocephalic, no masses, lesions, tenderness or abnormalities. Eyes: Sclera, conjunctiva normal. Oropharynx: No oral lesions. Neck: No JVD, no masses, no adenopathy. Lungs: Not labored, faint crackles in right base. Heart: RRR, bradycardia, systolic murmur. Extremities: Mild edema, no clubbing. Assessment/Plan: ILD -Mild ILD without evidence of progression -Due for PFTs and chest CT in September Bronchiectasis -Encouraged use of acapella device -Trial of ipratropium bromide via nebulizer as Medicare B usually reimburses for nebulized medication Small airways disease -See #2 Svetlana Jaeger MD [facility] [place] documented in this encounter [facility] 03-28-2024 Telephone encounter Note Requested Prescriptions Pending Prescriptions Disp Refills guaiFENesin (MUCINEX) 600 mg 12 hr tablet 180 tablet 1 Sig: Take 1 tablet by mouth two times a day. Date of last office visit in primary care: 03/18/2024 Date of next office visit in primary care: 09/21/2024 Please advise. Thank you. David Sewell MA. [facility] 03-28-2024 Miscellaneous Notes Requested Prescriptions Pending Prescriptions Disp Refills guaiFENesin (MUCINEX) 600 mg 12 hr tablet 180 tablet 1 Sig: Take 1 tablet by mouth two times a day. Date of last office visit in primary care: 03/18/2024 Date of next office visit in primary care: 09/21/2024 Please advise. Thank you. David Sewell MA. documented in this encounter [facility] 03-21-2024 History of Present illness Narrative AMBULATORY TELEPHONE VISIT Ayleen Millan has consented to this telephone encounter. Persons Present: patient Chief Complaint/Reason: Follow-up after radiation treatment. HPI: Prostate adenocarcinoma with Reading score 7 (3+4), PSA 2.83 and clinical stage T1c, s/p radiation treatment finished on 08/11/16. He is doing well without any specific new complaints. He has weak urinary stream but no other urinary symptoms. I discussed Flomax but he told me that he had dizziness associated with Flomax when it was tried before. His urinary symptoms are not substantial now and he doesn't wish to have medications now. Most recent PSA on 4.24.24 and 0.17 and it decreased from 0.19 on 09/10/23. Data Reviewed: Most recent labs Assessment: Clinically stable. Plan: PSA and phone visit in one year. Total Time Spent: 5 minutes Herminia Reed MD documented in this encounter [facility] 03-18-2024 History of Present illness Narrative CC: Patient presents with: F/U 6 months HPI Ayleen Millan is a 83 year old male who presents today for above. HTN-Medication changes:No Taking all medications as prescribed: Yes Side effects: No Home BP's: No Denies: headache, chest pain, palpitations, dyspnea. Reports chronic edema BLE, no worse than usual Last 3 Encounter BP Readings: Date: BP: 03/18/2024 132/68 10/05/2023 124/62 09/16/2023 126/60 Diabetes: Home blood sugar readings: fasting around 120-140 Hypoglycemia: No He is compliant with medication(s) and is tolerating med(s) without any side effects. Increased thirst: No Urinary frequency: No Nocturia: No Fatigue: No Unintentional weight loss: No Blurred vision: No Numbness, tingling or pain in extremities: No Ulcers or sores on feet: No Patient's last HgA1C : Hemoglobin A1C (%) Date Value 03/17/2024 6.9 09/10/2023 6.8 08/24/2021 6.9 02/28/2021 6.6 Review of Systems See HPI PAST MEDICAL HISTORY Diagnosis Date Allergic rhinitis, cause unspecified Arthritis AVM (arteriovenous malformation) of colon with hemorrhage 08/13/2017 Benign prostatic hyperplasia with lower urinary tract symptoms 03/08/2013 Bundle branch block, unspecified Carotid disease, bilateral (HCC) 08/30/2015 CHR SOLAR SKIN DAMAGE NOS 08/21/2008 Controlled type 2 diabetes mellitus without complication, without long-term current use of insulin (HCC) 10/04/2019 Degenerative tear of acetabular labrum of right hip 07/19/2020 Diverticulosis of colon (without mention of hemorrhage) 08/13/2017 Duplicated ureter, 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 Nelson ILD (interstitial lung disease) ([facility]) 08/13/2020 Impaired fasting glucose 08/29/2011 Lumbago 12/11/2010 Orthostatic dizziness 10/04/2019 Other and unspecified disc disorder of cervical region 10/28/2005 Other and unspecified hyperlipidemia Prostate cancer ([facility]) 05/30/2016 Radiation therapy Renal cyst 09/29/2013 Unspecified gastritis and gastroduodenitis PAST SURGICAL HISTORY Procedure Laterality Date CATARACT SURGERY, COMPLEX 07/2012 bilateral COLONOSCOPY FLX DX W/COLLJ SPEC WHEN PFRMD 05/17/2002 Colonoscopy COLONOSCOPY FLX DX W/COLLJ SPEC WHEN PFRMD 09/15/2008 Colonoscopy COLSC FLEXIBLE W/CONTROL BLEEDING ANY METHOD 08/13/2017 diverticulosis, AVM rectum treated with Argon b.l. EP COM EPS/INDUCTION ARRHYTH 08/2003 ESOPHAGOGASTRODUODENOSCOPY TRANSORAL DIAGNOSTIC 05/17/2002 EGD ESOPHAGOGASTRODUODENOSCOPY TRANSORAL DIAGNOSTIC 01/24/2019 EGD ESOPHAGOGASTRODUODENOSCOPY TRANSORAL DIAGNOSTIC 08/01/2021 EXC TUMOR SOFT TISS BACK/FLANK SUBFASCIAL 5+CM 11/04/2013 [id number] lipoma EYE SURGERY HX HEMORRHOIDOPEXY BY STAPLING 11/03/2008 LEFT HEART CATH,PERCUTANEOUS 11/2004 Cardiac cath, heart, [facility]. PROSTATE BIOPSY 04/01/2016 SIGMOIDOSCOPY FLX DX W/COLLJ SPEC BR/WA IF PFRMD 05/09/2004 Sigmoidoscopy, flexible ALLERGIES Albuterol, Tramadol, Lipitor [Atorvastatin Calcium], Statins [Ziurwph-Sdl-Vaf Reductase Inhibitors], and Vytorin 09/01 [Ezetimibe-Simvastatin] MEDICATIONS omeprazole (PRILOSEC) 40 mg capsule Take 1 capsule by mouth two times a day. atenolol (TENORMIN) 50 mg tablet Take 1 tablet by mouth two times a day. Lancets lancets Test blood sugar(s) one times daily. Dx: Type 2 DM - Controlled E11.9 Insulin: No Lancing Device misc 1 Each once daily. Lancets (ONETOUCH ULTRASOFT LANCETS) lancets Test blood sugars 1 time daily. Dx: Type 2 DM Controlled E11.9 Insulin: No lovastatin 40 mg tablet Take 2 tablets by mouth daily at bedtime. For cholesterol. Ipratropium (ATROVENT HFA) 17 mcg/actuation inhaler Inhale 2 Puffs as instructed two times a day. metFORMIN ER (GLUCOPHAGE XR) 500 mg 24 hr tablet Take 2 tablets by mouth daily with breakfast. guaiFENesin (MUCINEX) 600 mg 12 hr tablet Take 1 tablet by mouth two times a day. blood sugar diagnostic (BLOOD GLUCOSE TEST) test strip Test blood sugar(s) 1 times daily. Dx: Type 2 DM - Controlled E11.9 Insulin: No lisinopril (ZESTRIL) 40 mg tablet Take 40 mg by mouth once daily. Mucus Clearing Device nadir Provide mucus clearing device furosemide (LASIX) 20 mg tablet Take 40 mg by mouth once daily. HYDROcodone-acetaminophen (NORCO) 5-325 mg per tablet Take 1 tablet by mouth twice daily as needed. amLODIPine (NORVASC) 5 mg tablet Take 1 tablet by mouth in the mornings and 1/2 tablet (2.5 mg) in the evenings polyethylene glycol 3350 (MIRALAX, GLYCOLAX) 17 gram/dose powder Take 17 g by mouth once daily. aspirin, enteric coated (ASPIRIN, ENTERIC COATED) 81 mg EC tablet Take 81 mg by mouth once daily. calcium carbonate 600 mg-cholecalciferol 200 units 600 mg-5 mcg (200 unit) tab Take 1 tablet by mouth twice daily. CENTRUM SILVER TAB FAMILY HISTORY Problem Relation Age of Onset other (CHF) Mother other (Leukemia) Mother other (Lung Cancer) Father other (Melanoma) Sister Diabetes Sister Diabetes Brother Heart Brother other (colonic polyps) Brother other (bladder cancer) Brother other (Parkinson) Brother Multisystem atrophy Alcohol/Drug Brother Social History Tobacco Use Smoking status: Never Smokeless tobacco: Never Vaping Use Vaping Use: Never used Substance Use Topics Alcohol use: Not Currently Comment: rare Drug use: No BP 132/68 Pulse (!) 57 Resp 16 Wt 97.5 kg (215 lb) SpO2 96% BMI 32.45 kg/m Physical Exam Vitals reviewed. Constitutional: Appearance: Normal appearance. Cardiovascular: Rate and Rhythm: Normal rate and regular rhythm. Pulses: Normal pulses. Heart sounds: Normal heart sounds. No murmur heard. Comments: Trace pitting edema bilateral ankles, worse on the left Pulmonary: Effort: Pulmonary effort is normal. Breath sounds: Normal breath sounds. No wheezing, rhonchi or rales. Feet: Comments: No deformities, ulcers, calluses, normal distal pulses, sensitive to 10 gm monofilament left foot, not sensitive to monofilament right foot, vibratory perception normal left foot, and vibratory perception decreased right foot Skin: General: Skin is warm and dry. Neurological: Mental Status: He is alert. Psychiatric: Mood and Affect: Mood normal. Health maintenance reviewed with patient: Shingrix Vaccine(1 of 2) Never done RSV Vaccine(1 - 1-dose 60+ series) Never done DTaP,Tdap,Td Vaccine(1 - Tdap) due on 06/29/2011 Covid-19 Vaccine(2022- season) due on 07/24/2023 Advance Directive Discussion due on 11/23/2023 Behavioral Health Screening Never done Diabetic Foot Exam due on 03/11/2024 HbA1C due on 09/16/2024 Dilated Retinal Exam due on 10/14/2024 Urine Albumin:Creatinine Ratio due on 03/17/2025 LDL Cholesterol due on 03/17/2025 Influenza Vaccine Completed Pneumococcal Vaccine: 65+ Completed HPV Vaccine Aged Out DATA REVIEWED: Most recent labs ASSESSMENT/PLAN: 1. Controlled type 2 diabetes mellitus without complication, without long-term current use of insulin (HCC) - ICD9: 250.00, ICD10: E11.9 (primary diagnosis) - Controlled - Continue current medications - HEMOGLOBIN A1C 2. Essential hypertension, benign - ICD9: 401.1, ICD10: I10 - Controlled - Continue current medications - Recommend home blood pressure monitoring, to bring results to next visit - Encouraged sodium restriction, DASH or Mediterranean diet 3. Hyperlipidemia, unspecified hyperlipidemia type - ICD9: 272.4, ICD10: E78.5 - Controlled - Continue current medications 4. Obesity, Class I, BMI 30-34.9 - ICD9: 278.00, ICD10: E66.9 Weight stable Prescription instructions reviewed with patient as applicable. Potential red flag symptoms discussed with the patient. Reviewed appropriate action plan to take if red flag symptoms occur. Patient agreeable to treatment plan. Romelia Renee APRN.[employer] documented in this encounter [facility] 02-11-2024 History of Present illness Narrative Physicians: Alonso Wheat MD (Family) Today's Chief Complaint: Chief Complaint Patient presents with Follow-up Patient c/o alfonso lower extremity swelling, worse in the left./ occasional sob and chest discomfort HISTORY: Subjective I had the pleasure of seeing Mr. Millan today at the [facility] in [place]. Patient is a pleasant 83-year-old male with a history of reported hypertrophic cardiomyopathy with hypertension, hyperlipidemia, osteoarthritis and reflux he is here for cardiac follow up. Patient was seen most recently in our nurse practitioner clinic 01/29/23. Since his last visit he notes some left sided chest pain that is not constant. Started in the last 3 months will occur daily but will worsening with lying in bed on the left side or with turning or moving his arm. The pain will last seconds. He is functionally limited due to his back. He cannot stand for more than 10 min due to the back pain. He has been seen by multiple specialists and he has no great options. He continues to sees pain management for the pain and gets injections on a regular basis. Left lower extremity swelling with left greater than right. He states that his leg is swollen even when he gets up in the morning. He has been taking his Lasix for approximately 2 months consistently. Previously it was only as needed. He has been compliant with his lower extremity compression stockings. No shortness of breath. No syncope or presyncope. No chest pain. . To review: carries a diagnosis of hypertrophic cardiomyopathy, he had carried this diagnosis for many years. He has never had any genetic testing, no specific familial history elicited of hypertrophic cardiomyopathy. Patient has no biological children. Patient had a left heart catheterization in 2004 that was unremarkable. He had a tilt table test in 2002 that was positive for postural orthostasis, and subsequent EP study that showed normal intracardiac conduction this was in the face of syncope with a right bundle branch block on EKG. Impression/Plan: History of hypertrophic cardiomyopathy: No genetic testing has been performed, no family history. Cardiac MRI obtained 11/2020 consistent with hypertrophic cardiomyopathy. Septal wall thickness of 2 cm. Minimal mid myocardial scar. Mild chordal systolic anterior motion of the mitral valve. No significant MR. No significant increase in LVOT velocity. Patient has no biological children, therefore genetic testing is less concerning. Syncope in the past appears secondary to postural orthostasis with a positive tilt table test patient has had no high risk arrhythmic features. Patient is self-limited and his exercise due to significant back and arthritic problems. Patient has no demonstrable heart failure symptomatology. He meets no criteria for ICD implantation. clinical research monitor without any concerning arrhythmias. Last echo without outflow tract obstruction. Will obtain repeat echo to reassess his LVOT gradient as well as septal wall thickness. He does have lower extremity edema that is asymmetric with left greater than right. It has not been overly responsive to diuresis. Will plan to rule out left lower extremity venous clot first. Will also obtain blood work to include comprehensive metabolic profile to assess his renal function, potassium given his 2-month history of diuretic use. If he does not have any venous clot then we will consider increasing his diuresis however knowing that he may be fluid sensitive given his history of hypertrophic cardiomyopathy as well as some issues with his previously positive tilt table test. Hyperlipidemia with a history of statin intolerance. Lipids managed by primary care provider, tolerating lovastatin without issue. No evidence of coronary artery disease based on left heart catheterization in 2004. History of positive tilt table test in 2002: EP study performed at the same time was unremarkable. Patient has a longstanding history of right bundle branch block on EKG. Intermittent lightheadedness, intolerance of Lasix due to symptomatic hypotension. Recommended prescription compression stockings for mild lower extremity edema. Hypertension: Blood pressure appears controlled on present therapy. FOR THE RECORD: Diagnostic Studies/Labs personally reviewed: Cardiac event monitor 04/14 No A-fib, average heart rate 64 range 52-95 Multiple events for dizziness lightheadedness associated with sinus rhythm 1 PVC noted Echocardiogram 07/14 Normal LV size septal wall hypertrophy measuring 1.9 cm. No LVOT obstruction. Normal RV size and function Mild MR normal RVSP Cardiac event monitor 01/24/2021 to 02/06/2021 for palpitation Patient had no A. fib, no atrial arrhythmias. 1 PVC noted. Diary symptoms associated with sinus rhythm and with his 1 PVC ECG personally reviewed from today with sinus rhythm, right bundle branch block which is old. Cardiac MRI 11/30/2020. Maximal septal wall thickness was 2 cm. LVEF 76%. He had mild mid myocardial scar in the basal and mid inferior septal wall. Normal RV size and function. Mild chordal RAMÍREZ with no significant LVOT velocity. Normal T1 mapping. Allergies: is allergic to hydrocodone-acetaminophen, tramadol, atorvastatin calcium, ezetimibe, simvastatin, and [id number] reductase inhibitors. Medications: (list name, dose, frequency, and last dose taken): Current Outpatient Medications: amLODIPine (NORVASC) 5 MG tablet, Take 1 (one) tablet (5 mg total) by mouth See Admin Instructions . (Patient taking differently: Take 1.5 (one and a half) tablets (7.5 mg total) by mouth See Admin Instructions 1 tablet in the AM , 0.5 tablet in the PM .), Disp: 135 tablet, Rfl: 3 aspirin 81 MG EC tablet, Take 1 (one) tablet (81 mg total) by mouth daily ., Disp: , Rfl: atenolol (TENORMIN) 50 MG tablet, Take 1 (one) tablet (50 mg total) by mouth 2 (two) times a day., Disp: 180 tablet, Rfl: 3 calcium carbonate-vitamin D3 500 mg-10 mcg (400 unit) Tab, Take 500 mg by mouth daily, Disp: , Rfl: finasteride (PROSCAR) 5 mg tablet, Take 1 (one) tablet (5 mg total) by mouth daily ., Disp: , Rfl: furosemide (LASIX) 20 MG tablet, Take 1 (one) tablet (20 mg total) by mouth daily as needed . (Patient taking differently: Take 1 (one) tablet (20 mg total) by mouth daily .), Disp: 90 tablet, Rfl: 3 HYDROcodone-acetaminophen (NORCO) 5-325 mg per tablet, Take 1 (one) tablet by mouth 2 (two) times a day 2 prn ., Disp: , Rfl: lisinopriL (PRINIVIL,ZESTRIL) 40 MG tablet, Take 1 (one) tablet (40 mg total) by mouth daily Reasons: high blood pressure., Disp: 90 tablet, Rfl: 3 lovastatin (MEVACOR) 40 MG tablet, Take 2 (two) tablets (80 mg total) by mouth nightly ., Disp: , Rfl: metFORMIN (GLUCOPHAGE) 500 MG tablet, Take 1 (one) tablet (500 mg total) by mouth 2 (two) times a day with meals ., Disp: , Rfl: multivitamin (THERAGRAN) per tablet, Take 1 (one) tablet by mouth daily ., Disp: , Rfl: omeprazole (PRILOSEC) 40 MG capsule, Take 1 (one) capsule (40 mg total) by mouth 2 (two) times a day ., Disp: , Rfl: polyethylene glycol (MIRALAX) 17 gram powder, Take 17 (seventeen) g by mouth daily ., Disp: , Rfl: Past Medical History: Diagnosis Date Cardiomyopathy (HCC) GERD (gastroesophageal reflux disease) Hyperlipidemia Hypertension Hypertrophic cardiomyopathy (HCC) Osteoarthrosis Prostate cancer (HCC) Renal cyst 2012 Past Surgical History: Procedure Laterality Date CARDIAC CATHETERIZATION 12/19/2004 EF 75%, Valve functions within normal limits CATARACT EXT/ECCE Bilateral COLONOSCOPY [facility] HEMORRHOIDECTOMY STAPLED HEMORRHOIDOPEXY (PPH) TUMOR REMOVAL Middle of back Social History: Patient reports that he has never smoked. He has never used smokeless tobacco. He reports that he does not drink alcohol and does not use drugs. Family History: family history includes Heart attack in his brother. PHYSICAL EXAM General appearance: Patient appears no apparent distress Blood pressure (!) 132/59, pulse 64, weight 97.5 kg (215 lb), SpO2 96%. Wt Readings from Last 3 Encounters: 02/11/24 97.5 kg (215 lb) 08/05/23 98.4 kg (217 lb) 01/29/23 96.8 kg (213 lb 6.4 oz) Body mass index is 31.75 kg/m . Physical Exam Constitutional: Appearance: He is well-developed. HENT: Head: Normocephalic and atraumatic. Eyes: Pupils: Pupils are equal, round, and reactive to light. Neck: Vascular: No JVD. Cardiovascular: Rate and Rhythm: Normal rate and regular rhythm. Pulses: Radial pulses are 2+ on the right side and 2+ on the left side. Heart sounds: No friction rub. No gallop. Comments: Soft 2 out of 6 murmur LVOT Pulmonary: Effort: Pulmonary effort is normal. Breath sounds: Normal breath sounds. No wheezing or rales. Musculoskeletal: Right lower leg: No edema. Left lower leg: No edema. Skin: General: Skin is warm and dry. Neurological: Mental Status: He is alert and oriented to person, place, and time. documented in this encounter [facility] 02-11-2024 Instructions Bartolome Bradley RN - 02/11/2024 2:40 PM EDT Echocardiogram LABS TODAY ECHOCARDIOGRAM LEFT LOWER EXTREMITY DOPPLER STUDY TODAY How to contact your Care Team: Provider: Dr. Cee Burciaga Nurse: Kwan Montelongo RN Fax: In case of an emergency please call 911. REFILLS: When in need for refills please call your care team or the office at [phone]. Please include medication name, pharmacy name, and specify 30-day or 90-day supply. Please check with your pharmacy within 24 hours of request for your refill. You must follow up as directed to continue current refills. Thank you! documented in this encounter [facility] 01-04-2024 Miscellaneous Notes Requested Prescriptions Pending Prescriptions Disp Refills omeprazole (PRILOSEC) 40 mg capsule 180 capsule 3 Sig: Take 1 capsule by mouth two times a day. Date of last office visit in primary care: 09/16/2023 Date of next office visit in primary care: 03/18/2024 Please advise. Thank you. David Sewell Ma. documented in this encounter [facility] 12-28-2023 Miscellaneous Notes Patient has been identified by name and date of : Yes Patient phones for refill(s): Requested Prescriptions Pending Prescriptions Disp Refills atenolol (TENORMIN) 50 mg tablet 180 tablet 3 Sig: Take 1 tablet by mouth two times a day. Date of last office visit in primary care: 09/16/2023 Date of next office visit in primary care: 03/17/2024 Please advise. Thank you. Ines Dumont LPN. documented in this encounter [facility] 11-02-2023 Telephone encounter Note Patient lvm requesting refill. Refill appropriate [facility] 11-02-2023 Miscellaneous Notes Patient lvm requesting refill. Refill appropriate documented in this encounter [facility] 11-02-2023 Miscellaneous Notes Patient has been identified by name and date of : Yes Patient phones for refill(s): Requested Prescriptions Pending Prescriptions Disp Refills lovastatin 40 mg tablet 180 tablet 3 Sig: Take 2 tablets by mouth daily at bedtime. For cholesterol. Date of last office visit in primary care: 09/16/2023 Date of next office visit in primary care: 03/17/2024 Last 2 Encounter Wt Readings: Date: Wt: 10/05/2023 96.2 kg (212 lb) 09/25/2023 96.2 kg (212 lb) Please advise. Thank you. ARLEN Heller. documented in this encounter [facility] 10-05-2023 History of Present illness Narrative Images from the original note were not included. . [facility] [place] Note Patient name: Ayleen Millan PCP: Alonso Wheat MD CC: follow-up ILD HPI: Ayleen Millan 82 year old male non-smoker with PMH significant for PAD, HTN, GERD, GI AVM with hemorrhage, prostate cancer s/p XRT, DM2, HOCM, ILD. Fibrotic lung disease dates back to 2012, does not have UIP/IPF pattern. No occupational exposures, exposure to drugs known to cause fibrosis, no autoimmune disorder. At [facility] with PA-C, he had problems with persistent wheezing. Previously intolerant of CJ due to tachyarrhythmias. She prescribed Acapella/flutter device and Mucinex. Had been unable to get a flutter valve. notes wheezing at night when he lies down. He does have some wheezing during the day, associated with chest congestion. This seems to be more prominent in the morning. Unable to expectorate phlegm. No SOB or chest pain. No GERD symptoms, patient is compliant with use of daily omeprazole. No sinus congestion or drainage. Patient had COVID several months ago but did not result in persistent cough. DATA: PFT 09/25/2023: Review of PFTs shows mild restriction, small airways obstruction and normal diffusion Labs: Component Ref Range & Units 3 wk ago (09/10/23) WBC 3.70 - 11.00 k/uL 5.03 RBC 4.20 - 6.00 m/uL 4.42 Hemoglobin 13.0 - 17.0 g/dL 13.5 Hematocrit 39.0 - 51.0 % 41.8 MCV 80.0 - 100.0 fL 94.6 MCH 26.0 - 34.0 pg 30.5 MCHC 30.5 - 36.0 g/dL 32.3 RDW-CV 11.5 - 15.0 % 13.1 Platelet Count 150 - 400 k/uL 167 MPV 9.0 - 12.7 fL 10.4 Absolute nRBC <0.01 k/uL <0.01 Imaging / Diagnostic Studies: DATE OF EXAM: Sep 25 2023 1:46PM [facility] 0541 - CT CHEST WO IVCON / PROCEDURE REASON: Interstitial pulmonary disease (HCC) Comparison: CT chest on 10/15/2022 RESULT: Limitations: None. Lines, tubes, and devices: None. Lung parenchyma and airways: The central airways remain patent, with diffuse mild bronchial wall thickening. A few solid pulmonary nodules are noted. For example, a 5.5 mm nodule in the lingula, series 6 image 167. A focal calcification in the medial right lower lobe, series 6 image 169. A stable 4 mm nodule visualized in the medial right lower lobe, series 6 image 192. A tiny 1-2 mm nodule in the right lower lobe, series 6 image 200. No new nodules identified. There are similar reticular opacities demonstrated in the bilateral lower lobes along the medial and posterior aspects of the lungs, with traction bronchiectasis/bronchiolectasis. There is a triangular density in the right middle lobe, series 6 image 177, likely representing focal atelectasis, unchanged. Pleural space: No pleural effusion. No pleural thickening. Lower neck, lymph nodes, and mediastinum: The imaged thyroid gland is normal. No lymphadenopathy in the supraclavicular, axillary, mediastinal, or hilar regions. Heart, pericardium, and thoracic vessels: Stable cardiac chambers, thoracic aorta and central pulmonary arteries. There are linear and punctate calcifications in the coronary circulations. Aortic root calcifications are demonstrated. No pericardial effusion/thickening. Bones and soft tissues: No destructive bone lesion. The spine shows extensive degenerative changes. Chest wall soft tissue has been stable. Upper abdomen: Limited study through the upper abdomen demonstrates multiple low-attenuation lesions or cysts in the kidneys, not fully characterized. IMPRESSION: A few stable pulmonary nodules. No new nodules visualized. Reticular opacities in bilateral lower lobes with traction bronchiectasis/bronchiolectasis; the pattern and distribution are similar to prior study. I personally reviewed the images as well as with the patient which shows stability of his lung disease. PAST MEDICAL HISTORY Diagnosis Date Allergic rhinitis, cause unspecified Arthritis AVM (arteriovenous malformation) of colon with hemorrhage 08/13/2017 Benign prostatic hyperplasia with lower urinary tract symptoms 03/08/2013 Bundle branch block, unspecified Carotid disease, bilateral ([facility]) 08/30/2015 CHR SOLAR SKIN DAMAGE NOS 08/21/2008 Controlled type 2 diabetes mellitus without complication, without long-term current use of insulin ([facility]) 10/04/2019 Degenerative tear of acetabular labrum of right hip 07/19/2020 Diverticulosis of colon (without mention of hemorrhage) 08/13/2017 Duplicated ureter, 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 Nelson ILD (interstitial lung disease) ([facility]) 08/13/2020 Impaired fasting glucose 08/29/2011 Lumbago 12/11/2010 Orthostatic dizziness 10/04/2019 Other and unspecified disc disorder of cervical region 10/28/2005 Other and unspecified hyperlipidemia Prostate cancer ([facility]) 05/30/2016 Radiation therapy Renal cyst 09/29/2013 Unspecified gastritis and gastroduodenitis ALLERGIES Allergen Reactions Albuterol Intolerance tachycardia Tramadol Itching Lipitor [Atorvastat* Intolerance leg cramps Statins [Statins-Hm* Intolerance leg cramping with most statins Vytorin 10/ [Ezet* Intolerance leg cramping Ipratropium (ATROVENT HFA) 17 mcg/actuation inhaler Inhale 2 Puffs as instructed two times a day. metFORMIN ER (GLUCOPHAGE XR) 500 mg 24 hr tablet Take 2 tablets by mouth daily with breakfast. guaiFENesin (MUCINEX) 600 mg 12 hr tablet Take 1 tablet by mouth two times a day. blood sugar diagnostic (BLOOD GLUCOSE TEST) test strip Test blood sugar(s) 1 times daily. Dx: Type 2 DM - Controlled E11.9 Insulin: No lisinopril (ZESTRIL) 40 mg tablet Take 40 mg by mouth once daily. Mucus Clearing Device nadir Provide mucus clearing device omeprazole (PRILOSEC) 40 mg capsule Take 1 capsule by mouth twice daily. atenolol (TENORMIN) 50 mg tablet Take 1 tablet by mouth twice daily. lovastatin 40 mg tablet Take 2 tablets by mouth daily at bedtime. For cholesterol. furosemide (LASIX) 20 mg tablet Take 20 mg by mouth as needed. HYDROcodone-acetaminophen (NORCO) 5-325 mg per tablet Take 1 tablet by mouth twice daily as needed. Lancets (ONETOUCH ULTRASOFT LANCETS) lancets Test blood sugars 1 time daily. Dx: Type 2 DM Controlled E11.9 Insulin: No amLODIPine (NORVASC) 5 mg tablet Take 1 tablet by mouth in the mornings and 1/2 tablet (2.5 mg) in the evenings polyethylene glycol 3350 (MIRALAX, GLYCOLAX) 17 gram/dose powder Take 17 g by mouth once daily. aspirin, enteric coated (ASPIRIN, ENTERIC COATED) 81 mg EC tablet Take 81 mg by mouth once daily. calcium carbonate 600 mg-cholecalciferol 200 units 600 mg-5 mcg (200 unit) tab Take 1 tablet by mouth twice daily. CENTRUM SILVER TAB Social History Tobacco Use Smoking status: Never Smokeless tobacco: Never Vaping Use Vaping Use: Never used Substance Use Topics Alcohol use: Not Currently Comment: rare Drug use: No FAMILY HISTORY Problem Relation Age of Onset other (CHF) Mother other (Leukemia) Mother other (Lung Cancer) Father other (Melanoma) Sister Diabetes Sister Diabetes Brother Heart Brother other (colonic polyps) Brother other (bladder cancer) Brother other (Parkinson) Brother Multisystem atrophy Alcohol/Drug Brother PAST SURGICAL HISTORY Procedure Laterality Date CATARACT SURGERY, COMPLEX 07/2012 bilateral COLONOSCOPY FLX DX W/COLLJ SPEC WHEN PFRMD 05/17/2002 Colonoscopy COLONOSCOPY FLX DX W/COLLJ SPEC WHEN PFRMD 09/15/2008 Colonoscopy COLSC FLEXIBLE W/CONTROL BLEEDING ANY METHOD 08/13/2017 diverticulosis, AVM rectum treated with Argon b.l. EP COM EPS/INDUCTION ARRHYTH 08/2003 ESOPHAGOGASTRODUODENOSCOPY TRANSORAL DIAGNOSTIC 05/17/2002 EGD ESOPHAGOGASTRODUODENOSCOPY TRANSORAL DIAGNOSTIC 01/24/2019 EGD ESOPHAGOGASTRODUODENOSCOPY TRANSORAL DIAGNOSTIC 08/01/2021 EXC TUMOR SOFT TISS BACK/FLANK SUBFASCIAL 5+CM 11/04/2013 [id number] lipoma EYE SURGERY HX HEMORRHOIDOPEXY BY STAPLING 11/03/2008 LEFT HEART CATH,PERCUTANEOUS 11/2004 Cardiac cath, heart, [facility]. PROSTATE BIOPSY 04/01/2016 SIGMOIDOSCOPY FLX DX W/COLLJ SPEC BR/WA IF PFRMD 05/09/2004 Sigmoidoscopy, flexible PMH, Social history, family history and surgical history reviewed and updated in EMR REVIEW OF SYSTEMS: CONSTITUTIONAL: No fevers, chills, nightsweats, unintended weight loss HEENT: Denies nasal congestion/sinus symptoms, allergy problems. CARDIOVASCULAR: No chest pain, palpitations, orthopnea, PND, edema. PULM: See HPI GI: No dysphagia/odynophagia, problematic reflux NEURO: No new balance problems, peripheral weakness/paresthesias or numbness of concern. MUSC-SKEL: No new joint pain, swelling, or erythema. INTEGUMENTARY: No new skin changes or rashes PHYSICAL EXAMINATION: BP 124/62 Pulse 57 Resp 17 Wt 212 lb (96.2kg) SpO2 96% General Appearance: Elderly male, NAD. Skin: Skin color, texture, turgor normal, no suspicious rashes or lesions. Head: Normocephalic, no masses, lesions, tenderness or abnormalities. Eyes: Sclera, conjunctiva normal. Neck: No JVD, no masses, no adenopathy. Lungs: Not labored, normal to percussion, bibasilar crackles, inspiratory squeaks on the right. Heart: RRR, systolic murmur. Extremities: No edema or clubbing. Assessment/Plan: Wheezing -Small airways obstruction. Due to past tachycardia with beta agonist, will try Atrovent -Patient received a flutter device and instructed on use ILD -Stable by imaging and PFTs -No UIP so antifibrotic therapy is not warranted at this time -Patient was considering stopping his PPI, recommended against this as silent reflux can worsen ILD HOCM -See #1. Using anticholinergic inhaler so as not to induce tachycardia that will worsen outflow obstruction Svetlana Jaeger MD [facility] [place] documented in this encounter [facility] 09-25-2023 History of Present illness Narrative Radiology Service Progress Note PATIENT NAME: Ayleen Millan DATE OF SERVICE: September 25, 2023 TIME: 1:35 PM PATIENT IDENTITY VERIFICATION COMPLETED USING TWO (2) IDENTIFIERS: Name and Date of confirmed by patient verbally. FALL SCREENING: Has the patient had 2 falls in the last year or 1 fall with injury or currently using an Ambulatory Assistive Device (Walker, Cane, Wheelchair, Crutches, etc.)? No What interventions were put in place to prevent falls during this visit? none PATIENT GENDER DATA: Male PATIENT RELEVANT IMPLANT DATA REVIEWED: Not Applicable RADIOLOGY DEPARTMENT: CT; Exam(s) Completed: Chest PERIPHERAL IV DATA: Not applicable SIGNED BY: RT Kody(R) September 25, 2023 1:35 PM documented in this encounter [facility] 09-25-2023 History of Present illness Narrative PULM FUNCTION SMARTBLOCK: Provider: Melanie Kahn PA-C Assisting Tech: Delores Strickland RPFT Spirometry: 1 DLCO: 1 LV - Box: 1 documented in this encounter [facility] 09-17-2023 Miscellaneous Notes Patient returned call and scheduled, Mónica Mackey Spoke with patient's and they are unable to schedule at this time. They will call back later today. Mónica Mackey Images from the original note were not included. Herminia Reed MD, P Wstr Hem/Onc Psr Please call him and schedule PSA in six months and then a phone visit with me a few days afterwards. Thanks. documented in this encounter [facility] 09-17-2023 History of Present illness Narrative AMBULATORY TELEPHONE VISIT Ayleen Millan has consented to this telephone encounter. Persons Present: patient Chief Complaint/Reason: Follow-up four years after radiation treatment. HPI: Prostate adenocarcinoma with Reading score 7 (3+4), PSA 2.83 and clinical stage T1c, s/p radiation treatment finished on 08/11/16. He is doing well without any specific new complaints. He has weak urinary stream but no other urinary symptoms. Most recent PSA on 09/10/23 was 0.19 compared to 0.12 on 09/04/22. Data Reviewed: Most recent labs Assessment: Clinically stable. Plan: PSA and phone visit in six months Total Time Spent: 5 minutes Herminia Reed MD documented in this encounter [facility] 08-05-2023 Nereyda Estrada RN - 08/05/2023 11:45 AM EDT How to contact your Care Team: Provider: Dr. Cee Burciaga Nurse: Kwan Montelongo RN Fax: In case of an emergency please call 911. REFILLS: When in need for refills please call your care team or the office at [phone]. Please include medication name, pharmacy name, and specify 30-day or 90-day supply. Please check with your pharmacy within 24 hours of request for your refill. You must follow up as directed to continue current refills. Thank you! documented in this encounter [facility] 08-05-2023 History of Present illness Narrative Physicians: Alonso Wheat MD (Family) Today's Chief Complaint: Cardiology follow-up, left-sided chest and arm pain HISTORY: Subjective I had the pleasure of seeing Mr. Millan today at the [facility] in [place]. Patient is a pleasant 82-year-old male with a history of reported hypertrophic cardiomyopathy with hypertension, hyperlipidemia, osteoarthritis and reflux he is here for cardiac follow up. Patient was seen most recently in our nurse practitioner clinic 01/29/23. Since his last visit he notes some left sided chest pain that is not constant. Started in the last 3 months will occur daily but will worsening with lying in bed on the left side or with turning or moving his arm. The pain will last seconds. He is functionally limited due to his back. He cannot do yard work. He walks [address] in to his home. He does a lot of the cooking he will have to sit down due to back pain. He continues to sees pain management for the pain and gets injections every three months. No syncope or presyncope. He states he has been compliant with his lower extremity compression stockings. He brought his home blood pressure readings today overall his blood pressure appears well controlled. To review: carries a diagnosis of hypertrophic cardiomyopathy, he had carried this diagnosis for many years. He has never had any genetic testing, no specific familial history elicited of hypertrophic cardiomyopathy. Patient has no biological children. Patient had a left heart catheterization in 2004 that was unremarkable. He had a tilt table test in 2002 that was positive for postural orthostasis, and subsequent EP study that showed normal intracardiac conduction this was in the face of syncope with a right bundle branch block on EKG. Impression/Plan: History of hypertrophic cardiomyopathy: No genetic testing has been performed, no family history. Cardiac MRI obtained 11/2020 consistent with hypertrophic cardiomyopathy. Septal wall thickness of 2 cm. Minimal mid myocardial scar. Mild chordal systolic anterior motion of the mitral valve. No significant MR. No significant increase in LVOT velocity. Patient has no biological children, therefore genetic testing is less concerning. Syncope in the past appears secondary to postural orthostasis with a positive tilt table test patient has had no high risk arrhythmic features. Patient is self-limited and his exercise due to significant back and arthritic problems. Patient has no demonstrable heart failure symptomatology. He meets no criteria for ICD implantation. clinical research monitor without any concerning arrhythmias. Last echo without outflow tract obstruction. Left-sided chest discomfort Left-sided pain is very atypical lasting a few seconds related to motion of his shoulder. Not typical for any ischemic symptoms. EKG today was stable with right bundle branch block. We will continue to monitor Hyperlipidemia with a history of statin intolerance. Lipids managed by primary care provider, tolerating lovastatin without issue. No evidence of coronary artery disease based on left heart catheterization in 2004. History of positive tilt table test in 2002: EP study performed at the same time was unremarkable. Patient has a longstanding history of right bundle branch block on EKG. Intermittent lightheadedness, intolerance of Lasix due to symptomatic hypotension. Recommended prescription compression stockings for mild lower extremity edema. Hypertension: Blood pressure appears controlled on present therapy. FOR THE RECORD: Diagnostic Studies/Labs personally reviewed: Cardiac event monitor 04/14 No A-fib, average heart rate 64 range 52-95 Multiple events for dizziness lightheadedness associated with sinus rhythm 1 PVC noted Echocardiogram 07/14 Normal LV size septal wall hypertrophy measuring 1.9 cm. No LVOT obstruction. Normal RV size and function Mild MR normal RVSP Cardiac event monitor 01/24/2021 to 02/06/2021 for palpitation Patient had no A. fib, no atrial arrhythmias. 1 PVC noted. Diary symptoms associated with sinus rhythm and with his 1 PVC ECG personally reviewed from today with sinus rhythm, right bundle branch block which is old. Cardiac MRI 11/30/2020. Maximal septal wall thickness was 2 cm. LVEF 76%. He had mild mid myocardial scar in the basal and mid inferior septal wall. Normal RV size and function. Mild chordal RAMÍREZ with no significant LVOT velocity. Normal T1 mapping. Allergies: is allergic to hydrocodone-acetaminophen, tramadol, atorvastatin calcium, ezetimibe, simvastatin, and orbfbmv-niy-ldm reductase inhibitors. Medications: (list name, dose, frequency, and last dose taken): Current Outpatient Medications: amLODIPine (NORVASC) 5 MG tablet, TAKE 1 TABLET BY MOUTH ONCE DAILY IN THE MORNING AND 1/2 (ONE-HALF) TAB IN THE EVENING, Disp: 135 tablet, Rfl: 3 aspirin 81 MG EC tablet, Take 1 (one) tablet (81 mg total) by mouth daily ., Disp: , Rfl: atenolol (TENORMIN) 50 MG tablet, Take 1 (one) tablet (50 mg total) by mouth 2 (two) times a day., Disp: 180 tablet, Rfl: 3 calcium carbonate-vitamin D3 500 mg-10 mcg (400 unit) Tab, Take 500 mg by mouth daily, Disp: , Rfl: finasteride (PROSCAR) 5 mg tablet, Take 1 (one) tablet (5 mg total) by mouth daily ., Disp: , Rfl: furosemide (LASIX) 20 MG tablet, Take 1 (one) tablet (20 mg total) by mouth daily as needed ., Disp: 90 tablet, Rfl: 1 HYDROcodone-acetaminophen (NORCO) 5-325 mg per tablet, Take 1 (one) tablet by mouth 2 (two) times a day 2 prn ., Disp: , Rfl: lisinopriL (PRINIVIL,ZESTRIL) 40 MG tablet, Take 1 (one) tablet (40 mg total) by mouth daily Reasons: high blood pressure., Disp: 90 tablet, Rfl: 3 lovastatin (MEVACOR) 40 MG tablet, Take 2 (two) tablets (80 mg total) by mouth nightly ., Disp: , Rfl: metFORMIN (GLUCOPHAGE) 500 MG tablet, Take 1 (one) tablet (500 mg total) by mouth 2 (two) times a day with meals ., Disp: , Rfl: multivitamin (THERAGRAN) per tablet, Take 1 (one) tablet by mouth daily ., Disp: , Rfl: omeprazole (PRILOSEC) 40 MG capsule, Take 1 (one) capsule (40 mg total) by mouth 2 (two) times a day ., Disp: , Rfl: polyethylene glycol (MIRALAX) 17 gram powder, Take 17 (seventeen) g by mouth daily ., Disp: , Rfl: Past Medical History: Diagnosis Date Cardiomyopathy (HCC) GERD (gastroesophageal reflux disease) Hyperlipidemia Hypertension Hypertrophic cardiomyopathy (HCC) Osteoarthrosis Prostate cancer (HCC) Renal cyst 2012 Past Surgical History: Procedure Laterality Date CARDIAC CATHETERIZATION 12/19/2004 EF 75%, Valve functions within normal limits CATARACT EXT/ECCE Bilateral COLONOSCOPY [facility] HEMORRHOIDECTOMY STAPLED HEMORRHOIDOPEXY (PPH) TUMOR REMOVAL Middle of back Social History: Patient reports that he has never smoked. He has never used smokeless tobacco. He reports that he does not drink alcohol and does not use drugs. Family History: family history includes Heart attack in his brother. PHYSICAL EXAM General appearance: Patient appears no apparent distress Blood pressure 117/68, pulse (!) 57, height 5' 9, weight 98.4 kg (217 lb), SpO2 95 %. Wt Readings from Last 3 Encounters: 08/05/23 98.4 kg (217 lb) 01/29/23 96.8 kg (213 lb 6.4 oz) 07/02/22 96 kg (211 lb 9.6 oz) Body mass index is 32.05 kg/m . Physical Exam Constitutional: Appearance: He is well-developed. HENT: Head: Normocephalic and atraumatic. Eyes: Pupils: Pupils are equal, round, and reactive to light. Neck: Vascular: No JVD. Cardiovascular: Rate and Rhythm: Normal rate and regular rhythm. Pulses: Radial pulses are 2+ on the right side and 2+ on the left side. Heart sounds: No friction rub. No gallop. Comments: Soft 2 out of 6 murmur LVOT Pulmonary: Effort: Pulmonary effort is normal. Breath sounds: Normal breath sounds. No wheezing or rales. Musculoskeletal: Right lower leg: No edema. Left lower leg: No edema. Skin: General: Skin is warm and dry. Neurological: Mental Status: He is alert and oriented to person, place, and time. documented in this encounter [facility] 05-11-2023 Telephone encounter Note Patient was last seen by Brian 01/29/23 and has a follow up scheduled in August 15 with . Refill appropriate [facility] 05-11-2023 Miscellaneous Notes Patient was last seen by Brian 01/29/23 and has a follow up scheduled in August 15 with . Refill appropriate documented in this encounter [facility] 04-02-2023 Miscellaneous Notes Patient has been identified by name and date of : Yes Patient phones for refill(s): Requested Prescriptions Pending Prescriptions Disp Refills blood sugar diagnostic (BLOOD GLUCOSE TEST) test strip 50 Strip 11 Sig: Test blood sugar(s) 1 times daily. Dx: Type 2 DM - Controlled E11.9 Insulin: No Date of last office visit in primary care: 03/11/2023 Annual/6 month follow-up: 09/16/2023 Last 2 Encounter Wt Readings: Date: Wt: 04/01/2023 97.5 kg (215 lb) 03/11/2023 97.1 kg (214 lb) Previous labs/tests for medication: Diabetes: Hemoglobin A1C (%) Date Value 03/03/2023 6.3 09/04/2022 7.0 08/24/2021 6.9 02/28/2021 6.6 Please advise. Thank you. Ines Dumont LPN documented in this encounter [facility] 04-01-2023 History of Present illness Narrative Patient: Ayleen Millan PCP: Alonso Wheat MD CC: wheezing HPI: Ayleen Millan 82 year old male non-smoker with PMH significant for HTN, PAD, GERD, colonic AVM/hemorrhage, prostate CA s/p XRT, DM2, HCOM and ILD. ILD dates back to 2012, subtle fibrotic changes, not typical UIP pattern. No prior use of drugs known to cause fibrosis, no occupational exposure. Most recent CT chest 10/15/2022 demonstrated stable ILD and recommendation was for annual surveillance imaging. Patient presents today secondary to wheezing. He was treated for sinobronchitis per PCP in December with Azithromycin. CXR at that time was unremarkable. Patient returned to PCP office in February complaining of chest pain. During physical exam Dr. 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 No significant cough. Occasionally expels sputum in the morning. Describes as a thick mucus. Reports that sputum is sometimes streaked with blood for several months, however, it is not present at this time. Exertional dyspnea with climbing stairs, walking long distances. Notes stable lower extremity edema, primarily the left ankle. Taking Lasix daily. Follows with Dr. Burciaga at [facility]. PAST MEDICAL HISTORY Diagnosis Date Allergic rhinitis, cause unspecified Arthritis AVM (arteriovenous malformation) of colon with hemorrhage 08/13/2017 Benign prostatic hyperplasia with lower urinary tract symptoms 03/08/2013 Bundle branch block, unspecified Carotid disease, bilateral ([facility]) 08/30/2015 CHR SOLAR SKIN DAMAGE NOS 08/21/2008 Controlled type 2 diabetes mellitus without complication, without long-term current use of insulin ([facility]) 10/04/2019 Degenerative tear of acetabular labrum of right hip 07/19/2020 Diverticulosis of colon (without mention of hemorrhage) 08/13/2017 Duplicated ureter, 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 Nelson ILD (interstitial lung disease) ([facility]) 08/13/2020 Impaired fasting glucose 08/29/2011 Lumbago 12/11/2010 Orthostatic dizziness 10/04/2019 Other and unspecified disc disorder of cervical region 10/28/2005 Other and unspecified hyperlipidemia Prostate cancer ([facility]) 05/30/2016 Radiation therapy Renal cyst 09/29/2013 Unspecified gastritis and gastroduodenitis Allergies: Albuterol Intolerance Comment:tachycardia Tramadol Itching Lipitor [Atorvastat* Intolerance Comment:leg cramps Statins [Statins-Hm* Intolerance Comment:leg cramping with most statins Vytorin 09/01 [Ezet* Intolerance Comment:leg cramping omeprazole (PRILOSEC) 40 mg capsule Take 1 capsule by mouth twice daily. atenolol (TENORMIN) 50 mg tablet Take 1 tablet by mouth twice daily. lovastatin 40 mg tablet Take 2 tablets by mouth daily at bedtime. For cholesterol. metFORMIN ER (GLUCOPHAGE XR) 500 mg 24 hr tablet Take 2 tablets by mouth daily with breakfast. furosemide (LASIX) 20 mg tablet Take 20 mg by mouth as needed. blood sugar diagnostic (BLOOD GLUCOSE TEST) test strip Test blood sugar(s) 1 times daily. Dx: Type 2 DM - Controlled E11.9 Insulin: No HYDROcodone-acetaminophen (NORCO) 5-325 mg per tablet Take 1 tablet by mouth twice daily as needed. Lancets (ONETOUCH ULTRASOFT LANCETS) lancets Test blood sugars 1 time daily. Dx: Type 2 DM Controlled E11.9 Insulin: No amLODIPine (NORVASC) 5 mg tablet Take 1 tablet by mouth in the mornings and 1/2 tablet (2.5 mg) in the evenings polyethylene glycol 3350 (MIRALAX, GLYCOLAX) 17 gram/dose powder Take 17 g by mouth once daily. aspirin, enteric coated (ASPIRIN, ENTERIC COATED) 81 mg EC tablet Take 81 mg by mouth once daily. calcium carbonate 600 mg-cholecalciferol 200 units 600 mg-5 mcg (200 unit) tab Take 1 tablet by mouth twice daily. Quinapril HCl 40 mg ORAL tablet Take one(1) tablet daily.PER DR OMAR ADORNO SILVER TAB Social History Tobacco Use Smoking status: Never Smokeless tobacco: Never Vaping Use Vaping Use: Never used Substance Use Topics Alcohol use: Not Currently Comment: rare Drug use: No Family History Problem Relation Age of Onset other (CHF) Mother other (Leukemia) Mother other (Lung Cancer) Father other (Melanoma) Sister Diabetes Sister Diabetes Brother Heart Brother other (colonic polyps) Brother other (bladder cancer) Brother other (Parkinson) Brother Multisystem atrophy Alcohol/Drug Brother PAST SURGICAL HISTORY Procedure Laterality Date CATARACT SURGERY, COMPLEX 07/2012 bilateral COLONOSCOPY FLX DX W/COLLJ SPEC WHEN PFRMD 05/17/2002 Colonoscopy COLONOSCOPY FLX DX W/COLLJ SPEC WHEN PFRMD 09/15/2008 Colonoscopy COLSC FLEXIBLE W/CONTROL BLEEDING ANY METHOD 08/13/2017 diverticulosis, AVM rectum treated with Argon b.l. EP COM EPS/INDUCTION ARRHYTH 08/2003 ESOPHAGOGASTRODUODENOSCOPY TRANSORAL DIAGNOSTIC 05/17/2002 EGD ESOPHAGOGASTRODUODENOSCOPY TRANSORAL DIAGNOSTIC 01/24/2019 EGD ESOPHAGOGASTRODUODENOSCOPY TRANSORAL DIAGNOSTIC 08/01/2021 EXC TUMOR SOFT TISS BACK/FLANK SUBFASCIAL 5+CM 11/04/2013 [id number] lipoma EYE SURGERY HX HEMORRHOIDOPEXY BY STAPLING 11/03/2008 LEFT HEART CATH,PERCUTANEOUS 11/2004 Cardiac cath, L heart, [facility] PROSTATE BIOPSY 04/01/2016 SIGMOIDOSCOPY FLX DX W/COLLJ SPEC BR/WA IF PFRMD 05/09/2004 Sigmoidoscopy, flexible I reviewed the past medical history, family history, social history and surgical history with changes noted above and updated in EMR. IMMUNIZATIONS Prevnar 13 - 09/27/2015 Pneumovax 23 - 10/28/2005 Influenza - 07/29/2022 COVID-19 - 09/30/2021, 01/17/2021, 12/21/2020, 08/21/2022 ROS: General: No fevers, chills or night sweats. Appetite good. No unintended weight loss. Eyes, Ears, nose, throat: No post nasal drip, rhinorrhea, purulent nasal discharge, epistaxis. No hoarseness. Vision stable. Cardiac: No angina, orthopnea. Resp: See HPI. GI: No heartburn, dysphagia. Musculoskeletal: Chronic low back and leg pain. Neuro: No headache, focal weakness, tremor. Skin: No new rash. Otherwise negative. PHYSICAL EXAMINATION: BP 126/82 Pulse 60 Resp 15 Wt 97.5 kg (215 lb) SpO2 95% BMI 32.45 kg/m Gen: No acute distress. Cooperative with examination. HEENT: Normocephalic. Sclera, conjunctiva clear. Oral hygeine and dentition good. No thrush. Resp: No stridor, accessory respiratory muscle use, supra-sternal or intercostal retractions. No wheezes. Bibasilar crackles. CV: Regular rythm. Systolic murmur. Radial pulses normal. Abd: Non distended. MSK: No kyphoscoliosis. Ext: Warm and well perfused. No clubbing, cyanosis, edema. Skin: No rash, ecchymoses. Neuro: Mental status normal. Affect normal. No tremor. DATA: PFT, 10/10/2022 IMPRESSION: Spirometry shows no obstruction.The reduced FVC suggests restriction. Recommend lung volumes if clinically indicated. The TLC is reduced indicating restriction. The presence of a reduced lung diffusion capacity - that normalizes when measured independent of alveolar volume (kCO) is consistent with a nonparenchymal disorder but does not rule out parenchymal or pulmonary vascular disorder. Electronically Signed On 10-10-2022 17:21:27 EST by Svetlana Jaeger M.D. CXR, 03/11/2023 IMPRESSION: No acute radiographic abnormality. Comparison: Chest x-ray 01/08/2023 RESULT: Lines, tubes, and devices: None. Lungs and pleura: No consolidation. No lung mass. No pleural effusion. Cardiomediastinal silhouette: Normal cardiomediastinal silhouette. Musculoskeletal: No acute fracture CXR, 01/08/2023 IMPRESSION: No acute radiographic abnormality. COMPARISON: 09/26/2021 RESULT: Lines, tubes, and devices: None. Lungs and pleura: No consolidation. No lung mass. No pleural effusion. No pneumothorax. Cardiomediastinal silhouette: Normal cardiomediastinal silhouette. Bones and soft tissues: Unremarkable. 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 A few pulmonary nodules measuring up to 5.5 mm. No new nodules identified. Comparison: CT chest on 09/08/2013 RESULT: Limitations: None. Lines, tubes, and devices: None. Lung parenchyma and airways: The central airways are patent. There is mild diffuse bronchial wall thickening. Reticular opacities again demonstrated in the bilateral lower lobes along the medial and posterior aspects, with traction bronchiectasis. No obvious honeycombing or architectural distortion. A few pulmonary nodules identified. For example, a stable 5.5 mm nodule in the lingula, series 2 image 171. A focal calcification seen in the medial left lower lobe, series 10 image 173. There appears be interval decrease in size of the pulmonary nodule in the medial right lower lobe now measuring 3-4 mm, series 10 image 187, previously 5 mm. A tiny 1 mm nodule also seen in the right lower lobe, series 10 image 192. No new nodules identified. No masses. Focal atelectasis is seen in the right middle lobe and lingula. Pleural space: No pleural effusion. No pleural thickening. Lower neck, lymph nodes, and mediastinum: The imaged thyroid gland is normal. No lymphadenopathy in the supraclavicular, axillary, mediastinal, or hilar regions. Heart, pericardium, and thoracic vessels: The thoracic aorta and main pulmonary artery are normal in caliber. The cardiac chambers are normal in size. Probably mild mitral annular calcifications. Punctate coronary artery atherosclerotic calcifications are noted, although the study is not optimized for coronary assessment. No pericardial effusion or thickening. Bones and soft tissues: The spine shows degenerative changes. Anterolisthesis seen in the lumbar spine. No destructive bone lesion. Chest wall soft tissue appears unremarkable. Upper abdomen: Limited study through the upper abdomen demonstrates multiple low-attenuation lesions or cysts in the kidneys, not fully characterized. ASSESSMENT/PLAN: 1. Interstitial pulmonary disease (HCC) - ICD9: 515, ICD10: J84.9 (primary diagnosis) Most recent CT chest in September. Will obtain PFTs and imaging in September 2023. - SPIROMETRY WITH DILATOR IF OBSTRUCTED - LUNG VOLUMES - LUNG DIFFUSION CAPACITY (DLCO) - CT CHEST WO IVCON 2. Wheezing - ICD9: 786.07, ICD10: R06.2 Patient previously did not tolerate Albuterol secondary to tachycardia. Will trial Mucinex and Acapella device. 3. Hemoptysis - ICD9: 786.30, ICD10: R04.2 Patient reports minimal blood streaking for months. Has not occurred recently. Advised him to notify our office is reoccurs. Portions of this documentation were copied and pasted from previous office visit notes in order to provide a cohesive continuity of the history. The note has been reviewed and edited and updated as necessary. Melanie Kahn PA-C documented in this encounter [facility] 03-11-2023 Miscellaneous Notes Test results are okay and seen by patient. documented in this encounter [facility] 03-11-2023 Progress note Formatting of t his note might be different from the original. Test results are okay and seen by patient. [facility] 03-11-2023 History of Present illness Narrative This note was created using [employer]uc[employer]. Subjective Ayleen Millan is a 82 year old male. His bronchitis resolved. He felt well at this time. His cardiomyopathy was being evaluated and he just completed an even monitor study. He described right sided sharp anterior chest pains off and on for 6 months, aggravated by getting up and walking but spontaneously resolving after 1-2 minutes. No other symptoms were noted. Review of Systems HENT: Negative. Respiratory: Negative for cough, chest tightness, shortness of breath and wheezing. Cardiovascular: Positive for chest pain. Negative for palpitations and leg swelling. Gastrointestinal: Negative for nausea and vomiting. Genitourinary: Negative for difficulty urinating and dysuria. Neurological: Negative for dizziness and headaches. 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 Benign Prostatic Hyperplasia With Lower Urinary Tract Symptoms Lumbago Hearing Loss in Right Ear History of Prostate Cancer Obesity, Class I, Bmi 30-34.9 Controlled Type 2 Diabetes Mellitus Without Complication, Without Long-Term Current Use of Insulin (Hcc) Degenerative Tear of Acetabular Labrum of Right Hip Ild (Interstitial Lung Disease) (Hcc) Current Outpatient Medications Medication Sig omeprazole (PRILOSEC) 40 mg capsule Take 1 capsule by mouth twice daily. atenolol (TENORMIN) 50 mg tablet Take 1 tablet by mouth twice daily. lovastatin 40 mg tablet Take 2 tablets by mouth daily at bedtime. For cholesterol. metFORMIN ER (GLUCOPHAGE XR) 500 mg 24 hr tablet Take 2 tablets by mouth daily with breakfast. furosemide (LASIX) 20 mg tablet Take 20 mg by mouth as needed. blood sugar diagnostic (BLOOD GLUCOSE TEST) test strip Test blood sugar(s) 1 times daily. Dx: Type 2 DM - Controlled E11.9 Insulin: No HYDROcodone-acetaminophen (NORCO) 5-325 mg per tablet Take 1 tablet by mouth twice daily as needed. Lancets (MatchbinTOUCH ULTRASOFT LANCETS) lancets Test blood sugars 1 time daily. Dx: Type 2 DM Controlled E11.9 Insulin: No amLODIPine (NORVASC) 5 mg tablet Take 1 tablet by mouth in the mornings and 1/2 tablet (2.5 mg) in the evenings polyethylene glycol 3350 (MIRALAX, GLYCOLAX) 17 gram/dose powder Take 17 g by mouth once daily. aspirin, enteric coated (ASPIRIN, ENTERIC COATED) 81 mg EC tablet Take 81 mg by mouth once daily. calcium carbonate 600 mg-cholecalciferol 200 units 600 mg-5 mcg (200 unit) tab Take 1 tablet by mouth twice daily. Quinapril HCl 40 mg ORAL tablet Take one(1) tablet daily.PER DR OMAR ADORNO SILVER TAB Bifidobacterium Infantis (ALIGN) 4 mg cap Take 1 capsule by mouth once daily. (Patient not taking: Reported on 03/11/2023) No current facility-administered medications for this visit. Objective BP 120/60 (BP Site: Right Arm, BP Position: Sitting, BP Cuff Size: Large Adult) Pulse (!) 56 Resp 16 Wt 97.1 kg (214 lb) BMI 32.30 kg/m Physical Exam Constitutional: General: He is not in acute distress. Appearance: He is not ill-appearing. Cardiovascular: Rate and Rhythm: Regular rhythm. Bradycardia present. Heart sounds: Murmur heard. Systolic murmur is present with a grade of 1/6. Comments: LSB Pulmonary: Effort: No respiratory distress. Breath sounds: Examination of the left-lower field reveals wheezing. Wheezing present. Chest: Chest wall: No mass, deformity or tenderness. Abdominal: Palpations: Abdomen is soft. Tenderness: There is no abdominal tenderness. Musculoskeletal: Right lower leg: No edema. Left lower leg: No edema. Neurological: Mental Status: He is alert. Feet:Shoes and socks removed, No deformities, ulcers, calluses, normal distal pulses, and sensitive to 10 gm monofilament Depression Screening 02/26/2022 02/26/2022 09/16/2022 03/11/2023 PHQ-2 Score 0 0 0 0 Depression screening tool completed and reviewed. Based on score and interview, patient is not at risk for depression. Screening tool discussed with patient, and I recommended no further intervention at this time. Component Latest Ref Rng & Units 03/03/2023 Protein, Total 6.3 - 8.0 g/dL 6.8 Albumin 3.9 - 4.9 g/dL 4.2 Calcium 8.5 - 10.2 mg/dL 9.4 Bilirubin, Total 0.2 - 1.3 mg/dL 0.4 Alkaline Phosphatase 38 - 113 U/L 84 AST 14 - 40 U/L 22 ALT 10 - 54 U/L 19 Glucose 74 - 99 mg/dL 123 (H) BUN 9 - 24 mg/dL 11 Creatinine 0.73 - 1.22 mg/dL 0.87 Sodium 136 - 144 mmol/L 144 Potassium 3.7 - 5.1 mmol/L 4.1 Chloride 97 - 105 mmol/L 105 CO2 22 - 30 mmol/L 27 Anion Gap 9 - 18 mmol/L 12 eGFR >=60 mL/min/1.73m 86 Cholesterol, Total <200 mg/dL 156 Triglyceride <150 mg/dL 101 HDL Cholesterol >39 mg/dL 48 Non HDL Cholesterol <130 mg/dL 108 Fasting Time hrs 12 VLDL Cholesterol <30 mg/dL 20 TC:HDL Ratio <5.10 3.25 LDL Cholesterol <100 mg/dL 88 LDL:HDL Ratio <2.54 1.83 Hemoglobin A1C 4.3 - 5.6 % 6.3 (H) Estimated Average Glucose mg/dL 134 Assessment and Plan 1. Atypical chest pain - ICD9: 786.59, ICD10: R07.89 (primary diagnosis) Musculoskeletal. - XR RIBS/CHEST 3V AP RIB/OBLS/CXR RIGHT 2. ILD (interstitial lung disease) (HCC) - ICD9: 515, ICD10: J84.[address] Jaeger. 3. Controlled type 2 diabetes mellitus without complication, without long-term current use of insulin (HCC) - ICD9: 250.00, ICD10: E11.9 - Controlled - Continue current medications - ALBUMIN/CREAT RATIO RND UR - BASIC METABOLIC PNL - HGB A1C - LIPID PANEL BASIC 4. Essential hypertension, benign - ICD9: 401.1, ICD10: I10 Controlled. - CBC 5. Hypertrophic cardiomyopathy (HCC) - ICD9: 425.18, ICD10: I42.2 Per [facility] Cardiology. Alonso Wheat MD documented in this encounter [facility] 01-29-2023 History of Present illness Narrative OFFICE CONSULTATION NOTE [facility] [address] [facility] [address] [facility] [id number] Physicians: Alonso Wheat MD (Family). CLAIMS CONFIGURATION ANALYST: Melanie Burciaga MD Patient is accompanied today by Susana his . Assessment & Plan: Hypertrophic cardiomyopathy - No genetic testing. No known family history and patient has no biological children. - MRI in November 2020 with asymmetric septal hypertrophy with maximum septal thickness of 2 cm. There was mild chordal Ramírez without significant outflow obstruction. Very mild mid wall hyperenhancement of the inferior septum - Left heart cath in 2004 was unremarkable. - Exercise stress 08/19/2018 with reduced exercise capacity, no resting LVOT obstruction, normal BP response to exercise and no significant arrhythmias. He did reach his target heart rate. - Left ventricular septal wall thickness measured on 2D echo at 1.28 cm, posterior wall 1.25 cm no LVOT obstruction has been reported. And only trivial mitral regurgitation and no RAMÍREZ. - Cardia MRI 11/30/2020 - Maximal septal wall thickness was 2 cm. LVEF 76%. He had mild mid myocardial scar in the basal and mid inferior septal wall. Normal RV size and function. Mild chordal RAMÍREZ with no significant LVOT velocity. - Patient demonstrates no symptomatology of heart failure. He does not meet criteria for an ICD. - Encouraged compression stockings and monitoring salt intake. - ASA 81 mg daily - Lasix 20 as needed. - BMP today. Dizziness - Tilt test in 2002 was positive for postural orthostasis. - EP study showed normal intracardiac conduction. - Known RBBB - 24-hour Holter on 08/26/2018 with a rare supraventricular premature complexes and single ventricular premature complex but no sustained VT. - Previous event monitor 01/24/2021 to 02/06/2021 without significant arrhythmia. - MARLENE. Hypertension - Tenormin 50 mg twice daily - Lisinopril 40 mg daily - Amlodipine 5 mg in the a.m. and 2.5 mg in the p.m. - BP stable. Hyperlipidemia - Lipid panel on 02/25/2022 w/ TC 158, triglycerides 132, HDL 44 and LDL 88. - Statin intolerance - Tolerating Mevacor 80 mg daily. Currently today: Patient presents today with his of 31 years Susana. He has suffered from chronic back pain and has been undergoing injections which he feels is the only thing that helps. Interestingly he says that his back feels better with inactivity. He will participate in some home chores such as cooking running the vacuum and helping with the laundry. He functions best by doing intermittent resting. He can walk around the store's shopping and then take breaks. This is mostly related to his back discomfort. The patient denies chest pain, shortness of breath, diaphoresis, nausea/vomiting, orthopnea, PND, lower extremity edema syncope or near syncope. He has an ongoing history of dizziness. He periodically has been on home monitoring. The last time was approximately 2 to 2 years ago. I just feel wobbly at times. This feeling will sometimes go on for approximately 2 hours. He is interested in wearing a cardiac event monitor for 2 weeks because he feels that anything concerning would show up in that timeframe. His last labs in August 2022 showed BUN/creatinine of 13/1.14 with a potassium of 4.1. We will update his BMP. The patient is wearing his support stockings today. He is using his Lasix 20 mg most days because his left foot will sometimes swell and this seems to help. We had a discussion regarding salt intake and further education was provided. BMP: Today 01/29/2023 stable. Medications were reviewed and no changes were made at this time. Follow-up scheduling: Patient will be scheduled for follow-up with Dr. Burciaga in 6 months. History of Present Illness: Patient is an 82 yo M w/ a h/o HTN, HPL, GERD, prostate cancer (39 radiation txmts 5 years ago, last PSA 0.12), osteoarthritis and hypertrophic cardiomyopathy who follows with Dr. Burciaga and was last seen on 07/02/2022. At that time he was functioning with limits due to back pain and seeing pain management for injections. Reported dizziness in the afternoon with a fluttering feeling. Were no episodes of syncope or presyncope. He had been compliant with lower extremity compression stockings and was watching salt intake. Cardiac echo on 07/16/2022 1. Technically fair quality study. Definity contrast used for opacification of endocardial border. 2. Normal left ventricular size with septal wall hypertrophy measuring 1.9 cm in maximal diameter. No evidence of LVOT obstruction. 3. Impaired LV relaxation. 4. Normal right ventricular size and systolic function. 5. Normal atria. 6. Age-related degenerative valve disease noted resulting in mild mitral regurgitation. 7. Normal pulmonary artery pressures with estimated RVSP 24 mmHg. Cardiac MRI 11/30/2020 1. Normal LV size with increased septal wall thickness with maximal thickness of 2cm. Quantitative LVEF 76 %. Mild mid myocardial scar in the basal and mid inferior septal wall. 2. Normal RV size and systolic function 3. No hemodynamically significant valvular disease, mild chordal RAMÍREZ noted. LVOT velocity less than 2m/s 4. Normal T1 mapping. Allergies Allergen Reactions Hydrocodone-Acetaminophen Tramadol Itching Atorvastatin Calcium Other (See Comments) leg cramps Ezetimibe Simvastatin Kgghydd-Kes-Luk Reductase Inhibitors Other (See Comments) leg cramping with most statins ROS The following system(s) were reviewed and negative. Pertinent positive and negative findings are noted in the HPI. [x] Const [x] Eyes [x] ENT [x] Resp [] CV [x] GI [x] [x] Neuro [x] Musc [x] Skin [x] Psych [x] Endo [x] Allergy [x] Heme/Lymph Objective: Vitals: BP 131/78 (BP Location: Right arm, Patient Position: Sitting, BP Cuff Size: X-large Adult) Pulse (!) 57 Ht 5' 9 Wt 96.8 kg (213 lb 6.4 oz) SpO2 98% BMI 31.51 kg/m Physical Exam HENT: Head: Normocephalic. Nose: Nose normal. Mouth/Throat: Mouth: Mucous membranes are moist. Eyes: Pupils: Pupils are equal, round, and reactive to light. Cardiovascular: Rate and Rhythm: Normal rate and regular rhythm. Pulmonary: Effort: Pulmonary effort is normal. Breath sounds: Normal breath sounds. Abdominal: Palpations: Abdomen is soft. Musculoskeletal: General: No swelling. Cervical back: Normal range of motion. Skin: General: Skin is warm and dry. Neurological: Mental Status: He is alert and oriented to person, place, and time. Psychiatric: Behavior: Behavior normal. Thought Content: Thought content normal. 1. Primary hypertension 2. RBBB (right bundle branch block with left anterior fascicular block) 3. Dizziness Patient's Medications New Prescriptions No medications on file Previous Medications AMLODIPINE (NORVASC) 5 MG TABLET TAKE 1 TABLET BY MOUTH ONCE DAILY IN THE MORNING AND 1/2 (ONE-HALF) TAB IN THE EVENING ASPIRIN 81 MG EC TABLET Take 1 (one) tablet (81 mg total) by mouth daily . ATENOLOL (TENORMIN) 50 MG TABLET Take 1 (one) tablet (50 mg total) by mouth 2 (two) times a day. CALCIUM CARBONATE-VITAMIN D3 500 MG-10 MCG (400 UNIT) TAB Take 500 mg by mouth daily FINASTERIDE (PROSCAR) 5 MG TABLET Take 1 (one) tablet (5 mg total) by mouth daily . FUROSEMIDE (LASIX) 20 MG TABLET Take 1 (one) tablet (20 mg total) by mouth daily as needed . HYDROCODONE-ACETAMINOPHEN (NORCO) 5-325 MG PER TABLET Take 1 (one) tablet by mouth 2 (two) times a day 2 prn . LISINOPRIL (PRINIVIL,ZESTRIL) 40 MG TABLET Take 1 (one) tablet (40 mg total) by mouth daily Reasons: high blood pressure. LOVASTATIN (MEVACOR) 40 MG TABLET Take 2 (two) tablets (80 mg total) by mouth nightly . METFORMIN (GLUCOPHAGE) 500 MG TABLET Take 1 (one) tablet (500 mg total) by mouth once daily . MULTIVITAMIN (THERAGRAN) PER TABLET Take 1 (one) tablet by mouth daily . OMEPRAZOLE (PRILOSEC) 40 MG CAPSULE Take 1 (one) capsule (40 mg total) by mouth 2 (two) times a day . POLYETHYLENE GLYCOL (MIRALAX) 17 GRAM POWDER Take 17 (seventeen) g by mouth daily . Modified Medications No medications on file Discontinued Medications No medications on file Collaboration: Over 20-30 minutes was spent w/ the patient. Over half of this time was spent in counseling regarding medication therapy, treatments, activity, diet planning including teaching and review of reports with patient. There is collaboration between CLAIMS CONFIGURATION ANALYST and the consulting/collaborating physician regarding this patient's plan of care. Thank you for allowing us to participate in the care of our patient. Please call if you have any further questions. Yamel Chang CNP 01/29/2023 documented in this encounter [facility] 01-29-2023 Instructions Nory Dejesus MA - 01/29/2023 8:35 AM EST How to contact your Care Team: Provider: Dr. Cee Burciaga Nurse: MONI STEWART Fax: In case of an emergency please call 911. REFILLS: When in need for refills please call your care team or the office at [phone]. Please include medication name, pharmacy name, and specify 30-day or 90-day supply. Please check with your pharmacy within 24 hours of request for your refill. You must follow up as directed to continue current refills. Thank you! documented in this encounter [facility] 01-21-2023 Miscellaneous Notes Patient calling to check status of refill has one left for tomorrow. Patient has been identified by name and date of : Yes Patient phones for refill(s): Requested Prescriptions Pending Prescriptions Disp Refills omeprazole (PRILOSEC) 40 mg capsule 180 capsule 3 Sig: Take 1 capsule by mouth twice daily. Date of last office visit in primary care: 01/08/2023 6 month follow-up: 03/11/2023 Last 2 Encounter Wt Readings: Date: Wt: 01/08/2023 97.1 kg (214 lb) 10/10/2022 97.3 kg (214 lb 9.6 oz) Previous labs/tests for medication: Not applicable Please advise. Thank you. Ines Dumont LPN documented in this encounter [facility] 01-08-2023 Miscellaneous Notes Test results are okay. Result(s) viewed by patient: Yes. documented in this encounter [facility] 01-08-2023 Progress note Formatting of t his note might be different from the original. Test results are okay. Result(s) viewed by patient: Yes. [facility] 01-08-2023 History of Present illness Narrative This note was created using [employer]. Subjective Ayleen Millan is a 82 year old male who presents with complaint of nasal congestion, rhinorrhea, and cough- nonproductive, congested, and with some wheezing heard for a week. He denies fever, headache, ear pain, sore throat, dyspnea, nausea, vomiting, diarrhea, and no myalgia. Treatments tried include OTC cough syrup with no relief of symptoms. was ill with similar illness, and they had no exposure to any one ill. Review of Systems Per HPI. 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 Benign Prostatic Hyperplasia With Lower Urinary Tract Symptoms Lumbago Hearing Loss in Right Ear History of Prostate Cancer Obesity, Class I, Bmi 30-34.9 Controlled Type 2 Diabetes Mellitus Without Complication, Without Long-Term Current Use of Insulin (Hcc) Degenerative Tear of Acetabular Labrum of Right Hip Ild (Interstitial Lung Disease) (Hcc) Current Outpatient Medications Medication Sig atenolol (TENORMIN) 50 mg tablet Take 1 tablet by mouth twice daily. lovastatin 40 mg tablet Take 2 tablets by mouth daily at bedtime. For cholesterol. metFORMIN ER (GLUCOPHAGE XR) 500 mg 24 hr tablet Take 2 tablets by mouth daily with breakfast. furosemide (LASIX) 20 mg tablet Take 20 mg by mouth as needed. blood sugar diagnostic (BLOOD GLUCOSE TEST) test strip Test blood sugar(s) 1 times daily. Dx: Type 2 DM - Controlled E11.9 Insulin: No HYDROcodone-acetaminophen (NORCO) 5-325 mg per tablet Take 1 tablet by mouth twice daily as needed. omeprazole (PRILOSEC) 40 mg capsule Take 1 capsule by mouth twice daily. Lancets (ONETOUCH ULTRASOFT LANCETS) lancets Test blood sugars 1 time daily. Dx: Type 2 DM Controlled E11.9 Insulin: No amLODIPine (NORVASC) 5 mg tablet Take 1 tablet by mouth in the mornings and 1/2 tablet (2.5 mg) in the evenings polyethylene glycol 3350 (MIRALAX, GLYCOLAX) 17 gram/dose powder Take 17 g by mouth once daily. aspirin, enteric coated (ASPIRIN, ENTERIC COATED) 81 mg EC tablet Take 81 mg by mouth once daily. calcium carbonate 600 mg-cholecalciferol 200 units 600 mg-5 mcg (200 unit) tab Take 1 tablet by mouth twice daily. Quinapril HCl 40 mg ORAL tablet Take one(1) tablet daily.PER DR OMAR ADORNO SILVER TAB Bifidobacterium Infantis (ALIGN) 4 mg cap Take 1 capsule by mouth once daily. No current facility-administered medications for this visit. Objective BP 128/69 (BP Site: Left Arm, BP Position: Sitting, BP Cuff Size: Large Adult) Pulse (!) 59 Temp (!) 35.9 C (96.6 F) (Temporal) Wt 97.1 kg (214 lb) BMI 32.30 kg/m Physical Exam Constitutional: General: He is not in acute distress. HENT: Nose: Congestion present. No rhinorrhea. Mouth/Throat: Pharynx: Posterior oropharyngeal erythema present. No oropharyngeal exudate. Cardiovascular: Rate and Rhythm: Normal rate and regular rhythm. Heart sounds: No murmur heard. No gallop. Pulmonary: Breath sounds: Examination of the right-middle field reveals wheezing. Examination of the left-middle field reveals wheezing. Examination of the right-lower field reveals rhonchi and rales. Examination of the left-lower field reveals rales. Wheezing, rhonchi and rales present. Lymphadenopathy: Cervical: No cervical adenopathy. Neurological: Mental Status: He is alert. Assessment and Plan 1. Sinobronchitis - ICD9: 473.9, 490, ICD10: J32.9, J40 - Will begin treatment with as per antibiotic as written, see orders - AZITHROMYCIN 250 MG TABLET - XR CHEST 2V FRONTAL/LAT - Call or message if not better. ALBUTEROL contraindicated due to allergy history. 2. ILD (interstitial lung disease) (HCC) - ICD9: 515, ICD10: J84.9 See above. Consider steroids if not better. lAonso Wheat MD documented in this encounter [facility] 12-29-2022 Miscellaneous Notes DESIREE: 03/06/2022 NOV: 03/11/2023 Last refill: 01/01/2022 QTY: 180 Refills: 3 Patient's request for medication is as follows: Requested Prescriptions Pending Prescriptions Disp Refills atenolol (TENORMIN) 50 mg tablet 180 tablet 3 Sig: Take 1 tablet by mouth twice daily. Please approve the above prescription(s) to electronically send to pharmacy. David Sewell Ma documented in this encounter [facility] 11-26-2022 Telephone encounter Note Pt called stating Vibease is not making his Quinapril any more per Pharmacy. He's willing to try something else. Dr. Burciaga notified and ordered lisinopril 40 mg daily. Patient updated on the medication change was agreeable to med change. [facility] 11-26-2022 Miscellaneous Notes Pt called stating Vibease is not making his Quinapril any more per Pharmacy. He's willing to try something else. Dr. Burciaga notified and ordered lisinopril 40 mg daily. Patient updated on the medication change was agreeable to med change. documented in this encounter [facility] 10-15-2022 History of Present illness Narrative Radiology Service Progress Note PATIENT NAME: Ayleen Millan DATE OF SERVICE: October 15, 2022 TIME: 3:18 PM PATIENT IDENTITY VERIFICATION COMPLETED USING TWO (2) IDENTIFIERS: Name and Date of confirmed by patient verbally. FALL SCREENING: Has the patient had 2 falls in the last year or 1 fall with injury or currently using an Ambulatory Assistive Device (Walker, Cane, Wheelchair, Crutches, etc.)? No PATIENT GENDER DATA: Male PATIENT RELEVANT IMPLANT DATA REVIEWED: Yes RADIOLOGY DEPARTMENT: CT; Exam(s) Completed: Chest PERIPHERAL IV DATA: Not applicable SIGNED BY: RT Kimberly(R) October 15, 2022 3:18 PM documented in this encounter [facility] 10-10-2022 History of Present illness Narrative Images from the original note were not included. . [facility] [place] Note Patient name: Ayleen Millan PCP: Alonso Wheat MD CC: Follow-up ILD HPI: Ayleen Millan 81 year old male non-smoker with PMH signficant for HTN, PAD, GERD, colonic AVM/hemorrhage, prostate CA s/p XRT, DM2, HCOM and ILD presents for his yearly follow-up. ILD dates back to 2012, subtle fibrotic changes, not typical UIP pattern. No prior use of drugs known to cause fibrosis, no occupational exposure. At [facility], no change in PFTs or CXR. Today he states that his dyspnea on exertion has remained about the same. He denies increased dry cough, chest pain, lower extremity edema. He has not been ill with any upper respiratory infection nor has he required hospitalization. DATA: PFT 09/2021: Review of both pulmonary function test show moderate restriction although he has had a 10% decrease in his total lung capacity compared to last year. Diffusion capacity is preserved Labs: Imaging / Diagnostic Studies: DATE OF EXAM: Sep 26 2021 12:00PM [id number] [id number] - XR CHEST 2V FRONTAL/LAT / PROCEDURE REASON: ILD (interstitial lung disease) (HCC) EXAM DATE/TIME: 09/26/2021 12:00 PM COMPARISON: Comparison is made to prior chest dated 08/17/2020 RESULT: Lines, tubes, and devices: None. Lungs and pleura: Chronic eventration right hemidiaphragm and scattered fibrotic scarring is unchanged. There is no focal consolidation or acute pleural process/fluid. There is no vascular redistribution to suggest pulmonary edema. Cardiomediastinal silhouette: The cardiac, mediastinal and hilar shadows are unchanged and remain within normal limits. I personally reviewed images and agree with the above assessment PAST MEDICAL HISTORY Diagnosis Date Allergic rhinitis, cause unspecified Arthritis AVM (arteriovenous malformation) of colon with hemorrhage 08/13/2017 Benign prostatic hyperplasia with lower urinary tract symptoms 03/08/2013 Bundle branch block, unspecified Carotid disease, bilateral ([facility]) 08/30/2015 CHR SOLAR SKIN DAMAGE NOS 08/21/2008 Controlled type 2 diabetes mellitus without complication, without long-term current use of insulin ([facility]) 10/04/2019 Degenerative tear of acetabular labrum of right hip 07/19/2020 Diverticulosis of colon (without mention of hemorrhage) 08/13/2017 Duplicated ureter, 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 Nelson ILD (interstitial lung disease) ([facility]) 08/13/2020 Impaired fasting glucose 08/29/2011 Lumbago 12/11/2010 Orthostatic dizziness 10/04/2019 Other and unspecified disc disorder of cervical region 10/28/2005 Other and unspecified hyperlipidemia Prostate cancer ([facility]) 05/30/2016 Radiation therapy Renal cyst 09/29/2013 Unspecified gastritis and gastroduodenitis ALLERGIES Allergen Reactions Albuterol Intolerance tachycardia Tramadol Itching Lipitor [Atorvastat* Intolerance leg cramps Statins [Statins-Hm* Intolerance leg cramping with most statins Vytorin 09/01 [Ezet* Intolerance leg cramping metFORMIN ER (GLUCOPHAGE XR) 500 mg 24 hr tablet Take 2 tablets by mouth daily with breakfast. furosemide (LASIX) 20 mg tablet Take 20 mg by mouth as needed. blood sugar diagnostic (BLOOD GLUCOSE TEST) test strip Test blood sugar(s) 1 times daily. Dx: Type 2 DM - Controlled E11.9 Insulin: No HYDROcodone-acetaminophen (NORCO) 5-325 mg per tablet Take 1 tablet by mouth twice daily as needed. omeprazole (PRILOSEC) 40 mg capsule Take 1 capsule by mouth twice daily. atenolol (TENORMIN) 50 mg tablet Take 1 tablet by mouth twice daily. Lancets (ONETOUCH ULTRASOFT LANCETS) lancets Test blood sugars 1 time daily. Dx: Type 2 DM Controlled E11.9 Insulin: No lovastatin 40 mg tablet Take 2 tablets by mouth daily at bedtime. For cholesterol. amLODIPine (NORVASC) 5 mg tablet Take 1 tablet by mouth in the mornings and 1/2 tablet (2.5 mg) in the evenings polyethylene glycol 3350 (MIRALAX, GLYCOLAX) 17 gram/dose powder Take 17 g by mouth once daily. aspirin, enteric coated (ASPIRIN, ENTERIC COATED) 81 mg EC tablet Take 81 mg by mouth once daily. calcium carbonate 600 mg-cholecalciferol 200 units 600 mg-5 mcg (200 unit) tab Take 1 tablet by mouth twice daily. Quinapril HCl 40 mg ORAL tablet Take one(1) tablet daily.PER DR OMAR ADORNO SILVER TAB Bifidobacterium Infantis (ALIGN) 4 mg cap Take 1 capsule by mouth once daily. Social History Tobacco Use Smoking status: Never Smokeless tobacco: Never Vaping Use Vaping Use: Never used Substance Use Topics Alcohol use: Not Currently Comment: rare Drug use: No PMH, Social history, family history and surgical history reviewed and updated in EMR REVIEW OF SYSTEMS: CONSTITUTIONAL: No fevers, chills, nightsweats, unintended weight loss HEENT: Denies fnasal congestion/sinus symptoms, problematic allergy problems. CARDIOVASCULAR: No chest pain, palpitations, orthopnea, PND,edema. PULM: See HPI GI: No dysphagia/odynophagia, problematic reflux, constipation, diarrhea MUSC-SKEL: No new joint pain, swelling, or erythema. PSY: No concerns regarding depression, anxiety INTEGUMENTARY: No new skin changes or rashes PHYSICAL EXAMINATION: BP 118/56 Pulse 61 Resp 12 Wt 214 lb (97.1kg) SpO2 95% General Appearance: Elderly male, NAD Skin: Skin color, texture, turgor normal, no suspicious rashes or lesions. Head: Normocephalic, no masses, lesions, tenderness or abnormalities. Eyes: Sclera, conjunctiva normal Neck: No JVD, no masses, no adenopathy Lungs: Not labored, normal to percussion, crackles right base Heart: Regular rate and rhythm, bradycardia, systolic murmur Extremities: Mild edema, no clubbing Assessment/Plan: 1. ILD -Decline in total lung capacity compared to last year will require updated chest CT -May need initiation of antifibrotic therapy 2. Abnormal pulmonary function test -10% decline in TLC is above expected decline related to natural aging -See #1 Svetlana Jaeger MD [facility] [place] documented in this encounter [facility] 10-10-2022 History of Present illness Narrative PULM FUNCTION SMARTBLOCK: Provider: Svetlana Jaeger MD Assisting Tech: Delores Petbrian, RPBANDAR Spirometry: 1 DLCO: 1 LV - Box: 1 documented in this encounter [facility] 10-10-2022 History of Present illness Narrative PULM FUNCTION SMARTBLOCK: Provider: Svetlana Jaeger MD Assisting Tech: Delores Petbrian, RPFT Spirometry: 1 DLCO: 1 LV - Box: 1 documented in this encounter [facility] 09-20-2022 Miscellaneous Notes Spoke with patient and scheduled. Mónica Mackey Per CC'D chart from Herminia Reed MD, MD P Wstr Hem/Onc Psr Please call him and schedule PSA in one year and then a phone visit with me a few days afterwards. Thanks. documented in this encounter [facility] 09-19-2022 History of Present illness Narrative AMBULATORY TELEPHONE VISIT Ayleen Millan has consented to this telephone encounter. Persons Present: patient Chief Complaint/Reason: Follow-up four years after radiation treatment. HPI: Prostate adenocarcinoma with Reading score 7 (3+4), PSA 2.83 and clinical stage T1c, s/p radiation treatment finished on 08/11/16. He is doing well without any specific new complaints. He has weak urinary stream. When he tried Flomax before he had dizziness and didn't tolerate it well. He plans to see his urologist. Most recent PSA on 09/04/22 was 0.12 and it decreased from 0.21 on 09/23/21. Data Reviewed: Most recent labs Assessment: Clinically stable. Plan: PSA and phone visit in one year. He will see his urologist for weak urinary stream. Total Time Spent: 5 minutes Herminia Reed MD documented in this encounter [facility] 09-10-2022 History of Present illness Narrative This note was created using [employer]. Subjective Ayleen Millan is a 81 year old male was doing well. He was concerned about his elevating A1C and his LUTS which was not better with finasteride after several months. Tamsulosin was not tolerated due to dizziness. Review of Systems Constitutional: Negative. Respiratory: Negative. Cardiovascular: Negative. Genitourinary: See questionnaire. 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 Benign Prostatic Hyperplasia With Lower Urinary Tract Symptoms Lumbago Hearing Loss in Right Ear History of Prostate Cancer Obesity, Class I, Bmi 30-34.9 Controlled Type 2 Diabetes Mellitus Without Complication, Without Long-Term Current Use of Insulin (Hcc) Degenerative Tear of Acetabular Labrum of Right Hip Ild (Interstitial Lung Disease) (Hcc) Current Outpatient Medications Medication Sig finasteride (PROSCAR) 5 mg tablet Take 1 tablet by mouth once daily. furosemide (LASIX) 20 mg tablet Take 20 mg by mouth as needed. blood sugar diagnostic (BLOOD GLUCOSE TEST) test strip Test blood sugar(s) 1 times daily. Dx: Type 2 DM - Controlled E11.9 Insulin: No HYDROcodone-acetaminophen (NORCO) 5-325 mg per tablet Take 1 tablet by mouth twice daily as needed. omeprazole (PRILOSEC) 40 mg capsule Take 1 capsule by mouth twice daily. atenolol (TENORMIN) 50 mg tablet Take 1 tablet by mouth twice daily. metFORMIN ER (GLUCOPHAGE XR) 500 mg 24 hr tablet Take 1 tablet by mouth daily with breakfast. Lancets (MatchbinTOUCH ULTRASOFT LANCETS) lancets Test blood sugars 1 time daily. Dx: Type 2 DM Controlled E11.9 Insulin: No lovastatin 40 mg tablet Take 2 tablets by mouth daily at bedtime. For cholesterol. amLODIPine (NORVASC) 5 mg tablet Take 1 tablet by mouth in the mornings and 1/2 tablet (2.5 mg) in the evenings polyethylene glycol 3350 (MIRALAX, GLYCOLAX) 17 gram/dose powder Take 17 g by mouth once daily. aspirin, enteric coated (ASPIRIN, ENTERIC COATED) 81 mg EC tablet Take 81 mg by mouth once daily. Quinapril HCl 40 mg ORAL tablet Take one(1) tablet daily.PER DR NELSON Bifidobacterium Infantis (ALIGN) 4 mg cap Take 1 capsule by mouth once daily. calcium carbonate 600 mg-cholecalciferol 200 units (CALCIUM 600 + D,3,) 600 mg(1,500mg) -200 unit ORAL Tab Take 1 tablet by mouth twice daily. CENTRUM SILVER TAB No current facility-administered medications for this visit. Objective BP 126/74 Pulse 60 Resp 16 Ht 175 cm (5' 8.9) Wt 98 kg (216 lb) BMI 31.99 kg/m Physical Exam Constitutional: Appearance: Normal appearance. Cardiovascular: Rate and Rhythm: Normal rate and regular rhythm. Pulmonary: Breath sounds: Normal breath sounds. UROL PROSTATE HEALTH MEN OVER 40 08/29/2011 09/10/2022 INCOMPLETE EMPTYING 4-MORE THAN HALF THE TIME 5-ALMOST ALWAYS FREQUENCY 4-MORE THAN HALF THE TIME 5-ALMOST ALWAYS INTERMITTENCY 1-LESS THAN 1X IN 5 3-ABOUT HALF THE TIME URGE TO URINATE 3-ABOUT HALF THE TIME 3-ABOUT HALF THE TIME WEAK STREAM 5-ALMOST ALWAYS 5-ALMOST ALWAYS STRAINING 3-ABOUT HALF THE TIME 0-NOT AT ALL URINATING AT NIGHT 0-NONE 1-(1) TIME TOTAL SCORE 20 22 SYMPTOM SCORE 20-35 SEVERE 20-35 SEVERE BOTHER SCORE DUE TO URINARY SYMPTOMS 4- MOSTLY DISSATISFIED 4- MOSTLY DISSATISFIED Component Latest Ref Rng & Units 09/04/2022 Glucose 74 - 99 mg/dL 141 (H) BUN 9 - 24 mg/dL 13 Creatinine 0.73 - 1.22 mg/dL 1.14 Sodium 136 - 144 mmol/L 140 Potassium 3.7 - 5.1 mmol/L 4.1 Chloride 97 - 105 mmol/L 105 CO2 22 - 30 mmol/L 27 Anion Gap 9 - 18 mmol/L 8 (L) Calcium 8.5 - 10.2 mg/dL 9.5 eGFR >=60 mL/min/1.73m 64 Hemoglobin A1C 4.3 - 5.6 % 7.0 (H) Estimated Average Glucose mg/dL 154 PSA <2.60 ng/mL 0.12 Assessment and Plan 1. Medicare annual wellness visit, subsequent - ICD9: V70.0, ICD10: Z00.00 (primary diagnosis) See wellness note. 2. Controlled type 2 diabetes mellitus without complication, without long-term current use of insulin (HCC) - ICD9: 250.00, ICD10: E11.9 worsening control Shared medical decision making. Options: Jardiance tablet. Ozempic injections have CV and renalbenefits. - METFORMIN ER 500 MG TABLET,EXTENDED RELEASE 24 HR. We agreed to increase metformin for now. Increase to two tablets daily. - COMP METABOLIC PANEL - LIPID PANEL BASIC - HGB A1C 3. Benign prostatic hyperplasia with incomplete bladder emptying - ICD9: 600.01, 788.21, ICD10: N40.1, R39.14 - Discontinue FINASTERIDE. - CONSULT TO UROLOGY Alonso Wheat MD Ayleen Millan is a 81 year old male here for a Medicare Subsequent Annual Wellness Visit Welcome to Medicare and Medicare Wellness Visits are an opportunity to create and update a personalized plan to help prevent disease and disability, based on your current health and risk factors. The yearly Wellness visit isn t a physical exam. Additional concerns may generate additional charges or co-pays. Health Risk Assessment In general, health is: Good Concerns with tiredness, difficulties with sexual function, balance, teeth/dentures: Not at all [place] anxious, stressed, angry, irritable, lonely, isolated, or had thoughts of hurting themself: Not at all Has little interest or pleasure in doing things: Not at all Bothered by feeling down, depressed, or hopeless: Not at all Needs help with grocery shopping, cooking, housework, bathing, grooming, dressing, eating, sitting or standing, walking, using the toilet, handling finances, taking medications, using the telephone, or driving: No Following safety precautions in the home environment and vehicle: removed throw rugs from floors, installed grab bars in the bathroom, handrails in stairwells, having adequate lighting, wearing seatbelt at all times?: Yes Smokes cigarettes, vapes, or chew tobacco: No Eats healthy foods including fruits, vegetables, whole grains, and fiber-rich foods: More than half the days Number of days per week engages in exercise: 1 day Average alcohol consumption: Never Current Providers Patient Care Team: Alonso Wheat MD as PCP - General Herminia Reed MD, MD as Physician (Radiation Oncology) 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 Marques Medical/Family history review Reviewed and updated problem list, medical history, surgical history, family history, social history, and medication list. Opioid use review Patient is currently using opioids. Prescribed No opioid use on file in the last 90 days Does patient have risk factors for opioid abuse? No Pain overview Current pain concerns and treatment plan reviewed. Patient stable on current treatment plan. Depression screening Depression Screening PHQ-2 Score 02/26/2022 0 Depression screening tool completed and reviewed. Based on score and interview, patient is not at risk for depression. Screening tool discussed with patient, and I recommended no further intervention at this time. Cognitive screening Mini Cog Score: Cognitive screening reviewed and no further action needed (score 3-5) Functional Observation Was the patient's timed Up & Go test unsteady or longer than 30 seconds? No Advance Care Planning End of Life planning discussed, including patient's advanced directive wishes: Yes. None completed yet. Measurements BP 126/74 Pulse 60 Resp 16 Ht 5' 8.9 (1.75m) Wt 216 lb (98.0kg) BMI 31.99 kg/(m^2). Visual acuity: follows with optometry/ophthalmology Hearing Evaluation: within normal limits Assessment/Plan - Counseled on healthy diet and regular exercise - Discussed need for and benefit of weight loss. BMI 31.99 kg/(m^2) - Fall avoidance - Vaccines recommended Shingrix at pharmacy and Tdap at pharmacy - Depression screening documented in this encounter [facility] 08-21-2022 History of Present illness Narrative ASSESSMENT/PLAN: 1. Need for COVID-19 vaccine - ICD9: V04.89, ICD10: Z23 - PFIZER-BIONTECH COVID-19 BIVALENT BOOSTER VACCINE, AGE 12+ YR Alonso Wheat MD documented in this encounter [facility] 08-14-2022 Telephone encounter Note Last seen by Dr. Burciaga 06/2022 f/u scheduled for 01/14/2023 refill appropriate [facility] 08-14-2022 Miscellaneous Notes Last seen by Dr. Burciaga 06/2022 f/u scheduled for 01/14/2023 refill appropriate documented in this encounter [facility] 07-07-2022 Miscellaneous Notes DESIREE: 03/06/2022 Last refill: 03/06/2022 QTY: 90 Refills: 0 Patient's request for medication is as follows: Requested Prescriptions Pending Prescriptions Disp Refills finasteride (PROSCAR) 5 mg tablet 90 tablet 0 Sig: Take 1 tablet by mouth once daily. Please approve the above prescription(s) to electronically send to pharmacy. David Sewell Ma documented in this encounter [facility] 07-02-2022 History of Present illness Narrative Physicians: Alonso Wheat MD (Family) Today's Chief Complaint: Chief Complaint Patient presents with Follow-up Patient c/o lower extremity edema/ dizziness/ fluttering HISTORY: Subjective I had the pleasure of seeing Mr. Millan today at the [facility] in [place]. Patient is a pleasant 81-year-old male with a history of reported hypertrophic cardiomyopathy with hypertension, hyperlipidemia, osteoarthritis and reflux he is here for cardiac follow up Patient was seen most recently in our nurse practitioner clinic 03/17/2022. He is functionally limited due to back pain and sees pain management for the pain and gets injections every three months. Dizziness in the afternoon. Fluttering feeling. No syncope or presyncope. He states he has been compliant with his lower extremity compression stockings. And is working on salt reduction. carries a diagnosis of hypertrophic cardiomyopathy, he had carried this diagnosis for many years. He has never had any genetic testing, no specific familial history elicited of hypertrophic cardiomyopathy. Patient has no biological children. Previous cardiac event monitor 01/24/2021 to 02/06/2021 for palpitation Patient had no A. fib, no atrial arrhythmias. 1 PVC noted. Diary symptoms associated with sinus rhythm and with his 1 PVC Cardiac MRI 12/13 Asymmetric septal hypertrophy with maximal septal thickness of 2 cm. Mild chordal RAMÍREZ without significant outflow tract obstruction. Very mild mid wall hyperenhancement of the inferior septum. To review: Patient had a left heart catheterization in 2004 that was unremarkable. He had a tilt table test in 2002 that was positive for postural orthostasis, and subsequent EP study that showed normal intracardiac conduction this was in the face of syncope with a right bundle branch block on EKG. Patient had been followed by cardiology on a regular basis and had frequent stress echocardiograms as well as Holter monitors. Exercise stress echocardiography performed last year on 08/19/2018 revealed reduced exercise capacity, no resting left ventricular outflow tract obstruction, normal blood pressure response to exercise, and no significant exercise-induced arrhythmias were detected. Patient did not reach target heart rate on his last several stress echoes. He stopped due to fatigue. Left ventricular septal wall thickness measured on 2D echo at 1.28 cm, posterior wall 1.25 cm no LVOT obstruction has been reported. And only trivial mitral regurgitation and no RAMÍREZ. 24-hour Holter monitor on 08/26/2018 revealed rare supraventricular premature complexes and a single ventricular premature complex but no sustained ventricular tachycardia was detected. At our last visit we discussed the pathophysiology of hypertrophic cardiomyopathy and I had recommended a cardiac MRI. Patient underwent cardiac MRI 11/30/2020. Maximal septal wall thickness was 2 cm. LVEF 76%. He had mild mid myocardial scar in the basal and mid inferior septal wall. Normal RV size and function. Mild chordal RAMÍREZ with no significant LVOT velocity. Normal T1 mapping. Impression/Plan: History of hypertrophic cardiomyopathy: No genetic testing has been performed, no family history. Cardiac MRI obtained 11/2020 consistent with hypertrophic cardiomyopathy. Septal wall thickness of 2 cm. Minimal mid myocardial scar. Mild chordal systolic anterior motion of the mitral valve. No significant MR. No significant increase in LVOT velocity. Patient has no biological children, therefore genetic testing is less concerning. Syncope in the past appears secondary to postural orthostasis with a positive tilt table test patient has had no high risk arrhythmic features. Patient is self-limited and his exercise due to significant back and arthritic problems. Patient has no demonstrable heart failure symptomatology. He meets no criteria for ICD implantation. Will reassess his LV with an echo. Patient had no edema on exam today. Encouraged continued lower extremity stockings, and monitoring salt intake. Previous monitor last year did not note any concerning arrhythmias. Hyperlipidemia with a history of statin intolerance. Lipids managed by primary care provider, tolerating lovastatin without issue. No evidence of coronary artery disease based on left heart catheterization in 2004. No recent ischemic evaluation. Exercise stress echo was completed in 2016 as well as 2018 failed to reach target heart rate, and would be indeterminant for ischemia due to such finding. History of positive tilt table test in 2002: EP study performed at the same time was unremarkable. Patient has a longstanding history of right bundle branch block on EKG. Intermittent lightheadedness, intolerance of Lasix due to symptomatic hypotension. Recommended prescription compression stockings for mild lower extremity edema. Hypertension: Blood pressure appears controlled on present therapy. FOR THE RECORD: Diagnostic Studies/Labs personally reviewed: ECG personally reviewed from today with sinus rhythm, right bundle branch block which is old. Cardiac MRI 11/30/2020. Maximal septal wall thickness was 2 cm. LVEF 76%. He had mild mid myocardial scar in the basal and mid inferior septal wall. Normal RV size and function. Mild chordal RAMÍREZ with no significant LVOT velocity. Normal T1 mapping. Allergies: is allergic to hydrocodone-acetaminophen, tramadol, atorvastatin calcium, ezetimibe, simvastatin, and ohkqjfy-ngb-erb reductase inhibitors. Medications: (list name, dose, frequency, and last dose taken): Current Outpatient Medications: amLODIPine (NORVASC) 5 MG tablet, Take 1 (one) tablet (5 mg total) by mouth every morning PATIENT TO INCREASE NORVASC TO 5 MG IN AM AND 2.5 MG IN PM ., Disp: 135 tablet, Rfl: 3 aspirin 81 MG EC tablet, Take 81 mg by mouth daily ., Disp: , Rfl: atenolol (TENORMIN) 50 MG tablet, Take 1 (one) tablet (50 mg total) by mouth 2 (two) times a day., Disp: 180 tablet, Rfl: 3 calcium carbonate-vitamin D3 500 mg-10 mcg (400 unit) Tab, Take 500 mg by mouth daily, Disp: , Rfl: finasteride (PROSCAR) 5 mg tablet, Take 5 mg by mouth daily ., Disp: , Rfl: furosemide (LASIX) 20 MG tablet, Take 1 (one) tablet (20 mg total) by mouth daily as needed ., Disp: 90 tablet, Rfl: 1 HYDROcodone-acetaminophen (NORCO) 5-325 mg per tablet, Take 1 tablet by mouth 2 (two) times a day 2 prn ., Disp: , Rfl: lovastatin (MEVACOR) 40 MG tablet, Take 2 tablets by mouth nightly ., Disp: , Rfl: metFORMIN (GLUCOPHAGE) 500 MG tablet, Take 500 mg by mouth once daily ., Disp: , Rfl: multivitamin (THERAGRAN) per tablet, Take 1 tablet by mouth daily ., Disp: , Rfl: omeprazole (PRILOSEC) 40 MG capsule, Take 1 capsule by mouth 2 (two) times a day., Disp: , Rfl: polyethylene glycol (MIRALAX) 17 gram powder, Take 17 g by mouth daily ., Disp: , Rfl: quinapriL (ACCUPRIL) 40 MG tablet, Take 1 (one) tablet (40 mg total) by mouth daily ., Disp: 90 tablet, Rfl: 3 Past Medical History: Diagnosis Date Cardiomyopathy (HCC) GERD (gastroesophageal reflux disease) Hyperlipidemia Hypertension Hypertrophic cardiomyopathy (HCC) Osteoarthrosis Prostate cancer (HCC) Renal cyst 2012 Past Surgical History: Procedure Laterality Date CARDIAC CATHETERIZATION 12/19/2004 EF 75%, Valve functions within normal limits CATARACT EXT/ECCE Bilateral COLONOSCOPY [facility] HEMORRHOIDECTOMY STAPLED HEMORRHOIDOPEXY (PPH) TUMOR REMOVAL Middle of back Social History: Patient reports that he has never smoked. He has never used smokeless tobacco. He reports that he does not drink alcohol and does not use drugs. Family History: family history includes Heart attack in his brother. PHYSICAL EXAM General appearance: Patient appears no apparent distress Blood pressure 137/73, pulse (!) 57, weight 96 kg (211 lb 9.6 oz), SpO2 98 %. Wt Readings from Last 3 Encounters: 07/02/22 96 kg (211 lb 9.6 oz) 03/17/22 96.8 kg (213 lb 6.4 oz) 07/25/21 98.4 kg (217 lb) Body mass index is 31.25 kg/m . Physical Exam Constitutional: Appearance: He is well-developed. HENT: Head: Normocephalic and atraumatic. Eyes: Pupils: Pupils are equal, round, and reactive to light. Neck: Vascular: No JVD. Cardiovascular: Rate and Rhythm: Normal rate and regular rhythm. Pulses: Radial pulses are 2+ on the right side and 2+ on the left side. Heart sounds: Normal heart sounds. No murmur heard. No friction rub. No gallop. Pulmonary: Effort: Pulmonary effort is normal. Breath sounds: Normal breath sounds. No wheezing or rales. Musculoskeletal: Right lower leg: No edema. Left lower leg: No edema. Skin: General: Skin is warm and dry. Neurological: Mental Status: He is alert and oriented to person, place, and time. documented in this encounter [facility] 07-02-2022 Instructions Nereyda Montelongo RN - 07/02/2022 10:17 AM EDT How to contact your Care Team: Provider: Dr. Cee Burciaga Nurse: Kwan STEWART Fax: In case of an emergency please call 911. REFILLS: When in need for refills please call your care team or the office at [phone]. Please include medication name, pharmacy name, and specify 30-day or 90-day supply. Please check with your pharmacy within 24 hours of request for your refill. You must follow up as directed to continue current refills. Thank you! 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 At this time patient would like to hold off on the colonoscopy and try to change his diet. Patient reports they have a poor diet and would like to try taking out diary and gluten. If the symptoms do not change with diet changes he reports will reach out for a colonoscopy. Beverly Bernabe APRN.CNP documented in this encounter [facility] 03-18-2022 History of Present illness Narrative Radiology Service Progress Note DATE OF SERVICE: March 18, 2022 TIME: 3:47 PM PATIENT IDENTITY VERIFICATION COMPLETED USING TWO (2) STANDARD IDENTIFIERS: Name and Date of confirmed by patient verbally. FALL SCREENING: Has the patient had 2 falls in the last year or 1 fall with injury or currently using an Ambulatory Assistive Device (Walker, Cane, Wheelchair, Crutches, etc.)? No PATIENT GENDER DATA: Male PATIENT RELEVANT IMPLANT DATA REVIEWED: Yes ALLERGIES: Reviewed and unchanged CONTRAST ALLERGY: NO. EXAM: CT -CONTRAST INDUCED NEPHROPATHY RISK FACTORS: Patient age > 60 years CREATININE: Creatinine Date Value Ref Range Status 02/25/2022 1.03 0.73 - 1.22 mg/dL Final 08/24/2021 0.95 0.73 - 1.22 mg/dL Final 02/28/2021 0.95 0.73 - 1.22 mg/dL Final Estimated Glomerular Filtration Rate Date Value Ref Range Status 02/25/2022 73 >=60 mL/min/1.73m Final Comment: Estimated Glomerular Filtration Rate (eGFR) is calculated using the 2020 CKD-EPI creatinine equation. This equation utilizes serum creatinine, sex, and age as parameters. The creatinine assay has traceable calibration to isotope dilution-mass spectrometry. Refer to KDIGO guidelines for clinical interpretation. In patients with unstable renal function, e.g. those with acute kidney injury, the eGFR may not accurately reflect actual GFR. eGFR- Date Value Ref Range Status 08/24/2021 >60 Final P.O.C.T. RESULTS: POC done: Yes, See Lab Tab March 18, 2022 TREATMENT: N/A PERIPHERAL IV DATA: Ambulatory: A peripheral IV was started in the Left antecubital site with a Angio cath: 22 gauge. RADIOLOGY DEPARTMENT: CT; Exam(s) Completed: Abdomen/Pelvis SIGNATURE: RT Kimberly(R) PATIENT NAME: Ayleen Millan DATE: March 18, 2022 TIME: 3:47 PM documented in this encounter [facility] 03-17-2022 Evaluation + Plan note Associated Problem(s): Hyperlipidemia Has been intolerant to many statins but is tolerating Lovastatin. Will continue this medication. [facility] 03-17-2022 Evaluation + Plan note Associated Problem(s): Essential hypertension Well controlled on current medication. No change with medication. [facility] 03-17-2022 Miscellaneous Notes Associated Problem(s): Hyperlipidemia Has been intolerant to many statins but is tolerating Lovastatin. Will continue this medication. Associated Problem(s): Essential hypertension Well controlled on current medication. No change with medication. Associated Problem(s): Hypertrophic non-obstructive cardiomyopathy (HCC) Patient underwent cardiac MRI 11/30/2020. Maximal septal wall thickness was 2 cm. LVEF 76%. He had mild mid myocardial scar in the basal and mid inferior septal wall. Normal RV size and function. Mild chordal RAMÍREZ with no significant LVOT velocity. Normal T1 mapping. On physical examination patient is alert and oriented. Lungs clear, intact distal pulses, S1, S2 no S3 regular rate and rhythm. No peripheral edema. Follow up with Dr. Burciaga in 6 months. documented in this encounter [facility] 03-17-2022 Evaluation + Plan note Associated Problem(s): Hypertrophic non-obstructive cardiomyopathy (HCC) Patient underwent cardiac MRI 11/30/2020. Maximal septal wall thickness was 2 cm. LVEF 76%. He had mild mid myocardial scar in the basal and mid inferior septal wall. Normal RV size and function. Mild chordal RAMÍREZ with no significant LVOT velocity. Normal T1 mapping. On physical examination patient is alert and oriented. Lungs clear, intact distal pulses, S1, S2 no S3 regular rate and rhythm. No peripheral edema. Follow up with Dr. Burciaga in 6 months. [facility] 03-17-2022 Instructions Brodie Childers RN - 03/17/2022 10:03 AM EDT .How to contact your Care Team: Provider: Melanie Burciaga MD [facility] Nurse: Kwan Montelongo RN In case of an emergency please call 911. REFILLS: When in need for refills please call your care team or the office at [phone]. Please include medication name, pharmacy name, and specify 30-day or 90-day supply. Please check with your pharmacy within 24 hours of request for your refill. You must follow up as directed to continue current refills. Thank you documented in this encounter [facility] 03-17-2022 History of Present illness Narrative General Cardiology Clinic Follow-up Heart & Vascular [facility] 03/17/2022 Chelly Quiroz, [employer] [address] [facility] [id number] Patient: Ayleen Millan Date of : 1940 (81 y.o.) PCP: Alonso Wheat MD Assessment & Plan Hypertrophic non-obstructive cardiomyopathy (HCC) Patient underwent cardiac MRI 11/30/2020. Maximal septal wall thickness was 2 cm. LVEF 76%. He had mild mid myocardial scar in the basal and mid inferior septal wall. Normal RV size and function. Mild chordal RAMÍREZ with no significant LVOT velocity. Normal T1 mapping. On physical examination patient is alert and oriented. Lungs clear, intact distal pulses, S1, S2 no S3 regular rate and rhythm. No peripheral edema. Follow up with Dr. Burciaga in 6 months. Essential hypertension Well controlled on current medication. No change with medication. Hyperlipidemia Has been intolerant to many statins but is tolerating Lovastatin. Will continue this medication. Follow-up: Return in about 6 months (around 09/16/2022) for Dr. Bruciaga for hypertrophic CM, HTN, HLD.. Chief Complaint: Follow-up (Pt states no cardiac concerns today.) Subjective History of Present Illness: Ayleen Millan is a 81 y.o. male with a history of reported hypertrophic cardiomyopathy with hypertension, hyperlipidemia, osteoarthritis and reflux he is here for cardiac 6 month follow up. He does follow with Dr. Burciaga routinely, last seen 07/25/2021. He has been doing well overall. No hospitalizations or ER visits. He is doing well on his current medication regimen. He is limited in his activity due to chronic back pain for which he follows routinely with pain management. Objective Tobacco Use Smoking Status Never Smoker Smokeless Tobacco Never Used ECG 12 lead Final Result by Melanie Burciaga MD (07/25/2021 1024) Stress Echo w/Echo Complete and Color Flow Final Result by Placido Le MD (08/19/2018 1442) Echocardiogram stress test Final Result by Jose Borden MD (10/13/2016 1315) HOME Medications: Patient's Medications New Prescriptions No medications on file Previous Medications AMLODIPINE (NORVASC) 5 MG TABLET Take 1 (one) tablet (5 mg total) by mouth every morning PATIENT TO INCREASE NORVASC TO 5 MG IN AM AND 2.5 MG IN PM . ASPIRIN 81 MG EC TABLET Take 81 mg by mouth daily . ATENOLOL (TENORMIN) 50 MG TABLET Take 1 (one) tablet (50 mg total) by mouth 2 (two) times a day. CALCIUM CARBONATE-VITAMIN D3 500 MG-10 MCG (400 UNIT) TAB Take 500 mg by mouth daily FUROSEMIDE (LASIX) 20 MG TABLET Take 20 mg by mouth daily as needed . HYDROCODONE-ACETAMINOPHEN (NORCO) 5-325 MG PER TABLET Take 1 tablet by mouth 2 (two) times a day 2 prn . LOVASTATIN (MEVACOR) 40 MG TABLET Take 2 tablets by mouth nightly . METFORMIN (GLUCOPHAGE) 500 MG TABLET Take 500 mg by mouth once daily . MULTIVITAMIN (THERAGRAN) PER TABLET Take 1 tablet by mouth daily . OMEPRAZOLE (PRILOSEC) 40 MG CAPSULE Take 1 capsule by mouth 2 (two) times a day. POLYETHYLENE GLYCOL (MIRALAX) 17 GRAM POWDER Take 17 g by mouth daily . QUINAPRIL (ACCUPRIL) 40 MG TABLET Take 1 (one) tablet (40 mg total) by mouth daily . Modified Medications No medications on file Discontinued Medications ACETAMINOPHEN (TYLENOL) 160 MG/5 ML (5 ML) SOLN Take 81 mg by mouth as needed . Physical Examination: BP 127/74 (BP Location: Right arm) Pulse (!) 57 Wt 96.8 kg (213 lb 6.4 oz) SpO2 96% BMI 31.51 kg/m No results found for: CHOL, LDLCALC, LDLDIRECT, TRIG, HDL Creatinine clearance cannot be calculated (Patient's most recent lab result is older than the maximum 14 days allowed.) documented in this encounter [facility] 03-13-2022 Miscellaneous Notes Called patient discussed reults of H pylori - d/t patient having severe abdominal bloating, increase flatulence, unintentional weight loss ( patient this symptoms to when he was diagnosed with COVID) and abdominal discomfort. Patient last complete colonoscopy 2016 - sigmoidoscopy 2018 anal mass - Anus, mass, biopsy (B) - Histologic features suggestive of mucosal prolapse. - No evidence of dysplasia. Although there is no evidence of neoplasia in the material examined, prolapse-type changes can be seen overlying a neoplastic process. Therefore, if clinically indicated, additional deeper samples may be obtained to fully exclude this possibility. Patient followed up with colorectal d/t his history of radiation for prostate no further biopsy were obtained d/t possibility site not able to heal. Thanks Beverly documented in this encounter [facility] 03-10-2022 History of Present illness Narrative CHIEF COMPLAINT: Patient presents with: Gas: with every meal states burping Abdominal Pain: off and on with indigestion Ayleen Millan is a 81 year old male with a past medical history AVMs of the colon with hemorrhage, diverticulosis of the colon, esophageal reflux, first-degree hemorrhoids, hiatal hernia, prostate cancer, hyperlipidemia, lumbago, interstitial lung disease, osteoarthrosis, hypertension, diabetes type 2, allergic rhinitis, bundle branch block and bilateral carotid disease. Who presents for gas and bloating. Last EGD 08/01/2021 gastritis-negative H. Pylori Last colonoscopy 08/13/2017 diverticulosis, AVMs of the rectum, internal hemorrhoids. Last sigmoidoscopy 01/2019 likely benign tumor at the anus biopsied-histologic features suggestive of mucosal prolapse no evidence of dysplasia comment: Although there is no evidence of neoplasia in the material examined, prolapse-type changes can be seen overlying a neoplastic process. Therefore, if clinically indicated, additional deeper samples may be obtained to fully exclude this possibility. -Patient followed up with colorectal surgery at that time options were discussed it was recommended observation and bleeding is mild and intermittent and patient has previous radiation treatments due to his prostate cancer. Due to direct treatments may result in poor wound healing and further complications no intervention was done at this time. HPI: The patient denies change in bowel habits, rectal bleeding or abdominal pain. Having a bowel movement every 2 days - formed - at times straining -patient reports of weight loss however correlates this due to his Covid exposure October 2021. Patient reports in the mornings his stomach is hard like basketball extremely bloating. Patient reports increase in gas over the years - tomatoes will cause upset stomach. Reports heartburn and acid reflux well controlled with omeprazole taking 40 mg twice daily. REports meat does not taste the same since he was diagnosed with COVID COVID 2020 taste was not the same. Nausea has improved since last being seen - however with a good belch this will go away. Record Review: [facility] / Outside records reviewed. PAST MEDICAL HISTORY Diagnosis Date Allergic rhinitis, cause unspecified Arthritis AVM (arteriovenous malformation) of colon with hemorrhage 08/13/2017 Benign prostatic hyperplasia with lower urinary tract symptoms 03/08/2013 Bundle branch block, unspecified Carotid disease, bilateral ([facility]) 08/30/2015 [facility] SOLAR SKIN DAMAGE NOS 08/21/2008 Controlled type 2 diabetes mellitus without complication, without long-term current use of insulin ([facility]) 10/04/2019 Degenerative tear of acetabular labrum of right hip 07/19/2020 Diverticulosis of colon (without mention of hemorrhage) 08/13/2017 Duplicated ureter, 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 Nelson ILD (interstitial lung disease) ([facility]) 08/13/2020 Impaired fasting glucose 08/29/2011 Lumbago 12/11/2010 Orthostatic dizziness 10/04/2019 Other and unspecified disc disorder of cervical region 10/28/2005 Other and unspecified hyperlipidemia Prostate cancer ([facility]) 05/30/2016 Radiation therapy Renal cyst 09/29/2013 Unspecified gastritis and gastroduodenitis PAST SURGICAL HISTORY Procedure Laterality Date CATARACT SURGERY, COMPLEX 07/2012 bilateral COLONOSCOPY FLX DX W/COLLJ SPEC WHEN PFRMD 05/17/2002 Colonoscopy COLONOSCOPY FLX DX W/COLLJ SPEC WHEN PFRMD 09/15/2008 Colonoscopy COLSC FLEXIBLE W/CONTROL BLEEDING ANY METHOD 08/13/2017 diverticulosis, AVM rectum treated with Argon b.l. EP COM EPS/INDUCTION ARRHYTH 08/2003 ESOPHAGOGASTRODUODENOSCOPY TRANSORAL DIAGNOSTIC 05/17/2002 EGD ESOPHAGOGASTRODUODENOSCOPY TRANSORAL DIAGNOSTIC 01/24/2019 EGD ESOPHAGOGASTRODUODENOSCOPY TRANSORAL DIAGNOSTIC 08/01/2021 EXC TUMOR SOFT TISS BACK/FLANK SUBFASCIAL 5+CM 11/04/2013 [id number] lipoma EYE SURGERY HX HEMORRHOIDOPEXY BY STAPLING 11/03/2008 LEFT HEART CATH,PERCUTANEOUS 11/2004 Cardiac cath, L heart, [facility]. PROSTATE BIOPSY 04/01/2016 SIGMOIDOSCOPY FLX DX W/COLLJ SPEC BR/WA IF PFRMD 05/09/2004 Sigmoidoscopy, flexible Allergies: ALLERGIES Allergen Reactions Albuterol Intolerance tachycardia Tramadol Itching Lipitor [Atorvastat* Intolerance leg cramps Statins [Statins-Hm* Intolerance leg cramping with most statins Vytorin 09/01 [Ezet* Intolerance leg cramping Medications: furosemide (LASIX) 20 mg tablet Take 20 mg by mouth as needed. HYDROcodone-acetaminophen (NORCO) 5-325 mg per tablet Take 1 tablet by mouth twice daily as needed. omeprazole (PRILOSEC) 40 mg capsule Take 1 capsule by mouth twice daily. atenolol (TENORMIN) 50 mg tablet Take 1 tablet by mouth twice daily. metFORMIN ER (GLUCOPHAGE XR) 500 mg 24 hr tablet Take 1 tablet by mouth daily with breakfast. lovastatin 40 mg tablet Take 2 tablets by mouth daily at bedtime. For cholesterol. amLODIPine (NORVASC) 5 mg tablet Take 1 tablet by mouth in the mornings and 1/2 tablet (2.5 mg) in the evenings polyethylene glycol 3350 (MIRALAX, GLYCOLAX) 17 gram/dose powder Take 17 g by mouth once daily. aspirin, enteric coated (ASPIRIN, ENTERIC COATED) 81 mg EC tablet Take 81 mg by mouth once daily. calcium carbonate 600 mg-cholecalciferol 200 units (CALCIUM 600 + D,3,) 600 mg(1,500mg) -200 unit ORAL Tab Take 1 tablet by mouth twice daily. Quinapril HCl 40 mg ORAL tablet Take one(1) tablet daily.PER DR OMAR ADORNO SILVER TAB finasteride (PROSCAR) 5 mg tablet Take 1 tablet by mouth once daily. blood sugar diagnostic (BLOOD GLUCOSE TEST) test strip Test blood sugar(s) 1 times daily. Dx: Type 2 DM - Controlled E11.9 Insulin: No Lancets (ONETOUCH ULTRASOFT LANCETS) lancets Test blood sugars 1 time daily. Dx: Type 2 DM Controlled E11.9 Insulin: No FAMILY HISTORY Problem Relation Age of Onset other (CHF) Mother other (Leukemia) Mother other (Lung Cancer) Father other (Melanoma) Sister Diabetes Sister Diabetes Brother Heart Brother other (colonic polyps) Brother other (bladder cancer) Brother other (Parkinson) Brother Multisystem atrophy Alcohol/Drug Brother Employer And Job Title: No employer specified (retired.); [employer] (No job title specified) Years Of Education Completed: Not specified Marital Status: to [place] with 1 child Social History Tobacco Use Smoking status: Never Smoker Smokeless tobacco: Never Used Vaping Use Vaping Use: Never used Substance Use Topics Alcohol use: Not Currently Comment: rare Drug use: No Review of Systems: Review of Systems Cardiovascular: Positive for leg swelling. Gastrointestinal: Positive for abdominal distention and abdominal pain. All other systems reviewed and are negative. Are you taking any blood thinners? No Physical Examination: BP 120/62 Pulse 59 Ht 5' 8.898 (1.75m) Wt 212 lb (96.2kg) SpO2 98% BMI 31.40 kg/(m^2). Last 10 Encounter Wt Readings: Date: Wt: 03/10/2022 96.2 kg (212 lb) 03/06/2022 96.6 kg (213 lb) 01/24/2022 95.3 kg (210 lb) 09/27/2021 97.3 kg (214 lb 9.6 oz) 09/26/2021 97.5 kg (215 lb) 08/29/2021 96.2 kg (212 lb) 07/04/2021 95.3 kg (210 lb) 06/04/2021 94.8 kg (209 lb) 04/29/2021 93.9 kg (207 lb) 02/28/2021 94.8 kg (209 lb)] PAtient reports weight at home normally 212 and now 203 - patient reports weight loss during COVID Physical Exam Constitutional: Appearance: Normal appearance. He is normal weight. HENT: Head: Normocephalic and atraumatic. Eyes: Extraocular Movements: Extraocular movements intact. Pupils: Pupils are equal, round, and reactive to light. Cardiovascular: Rate and Rhythm: Normal rate and regular rhythm. Pulses: Normal pulses. Heart sounds: Normal heart sounds. Pulmonary: Effort: Pulmonary effort is normal. Breath sounds: Normal breath sounds. Abdominal: General: Abdomen is flat. Bowel sounds are normal. There is distension. Palpations: Abdomen is soft. Musculoskeletal: General: Normal range of motion. Cervical back: Normal range of motion and neck supple. Skin: General: Skin is warm and dry. Neurological: General: No focal deficit present. Mental Status: He is alert and oriented to person, place, and time. Psychiatric: Mood and Affect: Mood normal. Behavior: Behavior normal. ASSESSMENT: No diagnosis found. PLAN: Assessment/Plan (K59.00) Constipation, unspecified constipation type (primary encounter diagnosis) (R14.0) Bloating (R14.3) Flatulence (R68.81) Early satiety 1. Constipation, unspecified constipation type - discussed increasing fiber he can do this by diet - at this time will hold off on supplement fiber because patient is having a lot of gas and bloating. - H PYLORI IGG AB; Future - XR ABDOMEN 1V SUPINE; Future 2. Bloating - H PYLORI IGG AB; Future - XR ABDOMEN 1V SUPINE; Future 3. Flatulence - H PYLORI IGG AB; Future - XR ABDOMEN 1V SUPINE; Future 4. Early satiety - H PYLORI IGG AB; Future - XR ABDOMEN 1V SUPINE; Future Follow up in office 3 months/PRN. Recommended to please call office/go to ER if fever, chills, chest pain, SOB, diarrhea, nausea, emesis, worsening abdominal pain, dehydration occurs I spent 30 minutes in the visit, with more than 50% of the total [id number] time of the visit in counseling / coordination of care. I have confirmed and edited as necessary, the PFSH and ROS obtained by others. Beverly Bernabe APRN.CNP March 10, 2022 1:37 PM documented in this encounter [facility] 03-06-2022 History of Present illness Narrative This note was created using Koducoriter. Rianna Millan is a 81 year old male. Left leg edema resolved, but was starting to recur. He was using compressions. He was taking furosemide 20 mg daily as needed. We reviewed his labs. He was having more urine retention and LUTS. He was on tamsulosin but medication caused dizziness. Review of Systems Constitutional: Negative. Respiratory: Negative. Cardiovascular: Negative. Genitourinary: Positive for decreased urine volume and difficulty urinating. Negative for dysuria. 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 Benign Prostatic Hyperplasia With Lower Urinary Tract Symptoms Lumbago Hearing Loss in Right Ear History of Prostate Cancer Obesity, Class I, Bmi 30-34.9 Controlled Type 2 Diabetes Mellitus Without Complication, Without Long-Term Current Use of Insulin ([facility]) Degenerative Tear of Acetabular Labrum of Right Hip Ild (Interstitial Lung Disease) ([facility]) Current Outpatient Medications Medication Sig furosemide (LASIX) 20 mg tablet Take 20 mg by mouth as needed. blood sugar diagnostic (BLOOD GLUCOSE TEST) test strip Test blood sugar(s) 1 times daily. Dx: Type 2 DM - Controlled E11.9 Insulin: No HYDROcodone-acetaminophen (NORCO) 5-325 mg per tablet Take 1 tablet by mouth twice daily as needed. omeprazole (PRILOSEC) 40 mg capsule Take 1 capsule by mouth twice daily. atenolol (TENORMIN) 50 mg tablet Take 1 tablet by mouth twice daily. metFORMIN ER (GLUCOPHAGE XR) 500 mg 24 hr tablet Take 1 tablet by mouth daily with breakfast. Lancets (ONETOUCH ULTRASOFT LANCETS) lancets Test blood sugars 1 time daily. Dx: Type 2 DM Controlled E11.9 Insulin: No lovastatin 40 mg tablet Take 2 tablets by mouth daily at bedtime. For cholesterol. amLODIPine (NORVASC) 5 mg tablet Take 1 tablet by mouth in the mornings and 1/2 tablet (2.5 mg) in the evenings polyethylene glycol 3350 (MIRALAX, GLYCOLAX) 17 gram/dose powder Take 17 g by mouth once daily. aspirin, enteric coated (ASPIRIN, ENTERIC COATED) 81 mg EC tablet Take 81 mg by mouth once daily. calcium carbonate 600 mg-cholecalciferol 200 units (CALCIUM 600 + D,3,) 600 mg(1,500mg) -200 unit ORAL Tab Take 1 tablet by mouth twice daily. Quinapril HCl 40 mg ORAL tablet Take one(1) tablet daily.PER DR OMAR ADORNO SILVER TAB No current facility-administered medications for this visit. Objective BP 120/64 (BP Site: Right Arm, BP Position: Sitting, BP Cuff Size: Large Adult) Pulse 60 Temp (!) 35.8 C (96.5 F) (Temporal Artery) Resp 16 Wt 96.6 kg (213 lb) BMI 31.00 kg/m Physical Exam Constitutional: General: He is not in acute distress. Cardiovascular: Rate and Rhythm: Normal rate and regular rhythm. Heart sounds: No murmur heard. No gallop. Pulmonary: Effort: No respiratory distress. Breath sounds: No wheezing or rales. Musculoskeletal: Comments: Trace edema, left foot and ankle. Feet:Shoes and socks removed, No deformities, ulcers, calluses, normal distal pulses and sensitive to 10 gm monofilament Component Latest Ref Rng & Units 02/25/2022 Protein, Total 6.3 - 8.0 g/dL 7.1 Albumin 3.9 - 4.9 g/dL 4.2 Calcium 8.5 - 10.2 mg/dL 9.9 Bilirubin, Total 0.2 - 1.3 mg/dL 0.6 Alkaline Phosphatase 38 - 113 U/L 77 AST 14 - 40 U/L 27 ALT 10 - 54 U/L 22 Glucose 74 - 99 mg/dL 112 (H) BUN 9 - 24 mg/dL 14 Creatinine 0.73 - 1.22 mg/dL 1.03 Sodium 136 - 144 mmol/L 140 Potassium 3.7 - 5.1 mmol/L 4.6 Chloride 97 - 105 mmol/L 104 CO2 22 - 30 mmol/L 26 Anion Gap 9 - 18 mmol/L 10 eGFR >=60 mL/min/1.73m 73 Cholesterol, Total <200 mg/dL 158 Triglyceride <150 mg/dL 132 HDL Cholesterol >39 mg/dL 44 Non HDL Cholesterol <130 mg/dL 114 Fasting Time hrs 16 VLDL Cholesterol <30 mg/dL 26 TC:HDL Ratio <5.10 3.59 LDL Cholesterol <100 mg/dL 88 LDL:HDL Ratio <2.54 2.00 Creatinine, Ur Random (UCRR) 20.0 - 300.0 mg/dL 146.9 Albumin, Urine Random mg/L 277.9 Albumin/Creat Ratio <30 mg/g 189 (H) Hemoglobin A1C 4.3 - 5.6 % 6.5 (H) Estimated Average Glucose mg/dL 140 Assessment and Plan 1. Benign prostatic hyperplasia with incomplete bladder emptying - ICD9: 600.01, 788.21, ICD10: N40.1, R39.14 (primary diagnosis) Shared Medical Decision Making was done: Medication: finasteride. Benefits: Medication may help LUTS in the in the residential. Risks: Possible side effects were discussed including gynecomastia. Possible interactions: lowers PSA. Approved use or off label use: approved. Options: other alpha blockers. - FINASTERIDE 5 MG TABLET 2. Controlled type 2 diabetes mellitus without complication, without long-term current use of insulin (HCC) - ICD9: 250.00, ICD10: E11.9 Controlled. - Continue current medications - BASIC METABOLIC PNL - HGB A1C - ALBUMIN/CREAT RATIO RND UR- Recheck in 6 months. 3. Essential hypertension, benign - ICD9: 401.1, ICD10: I10 - good control 4. Edema of left lower leg - ICD9: 782.3, ICD10: R60.0 Improved. - FUROSEMIDE 20 MG TABLET Alonso Wheat MD documented in this encounter [facility] 03-03-2022 Miscellaneous Notes Patient scheduled yearly follow up for 10/[address] PFT orders so we may return call to schedule these also. Please route back to [facility] clerical pool and we will Call patient back to schedule. 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 Orthostatic dizziness 10/04/2019 08/29/2021 Thrombocytopenia 06/20/2019 02/28/2021 Anal bleeding 02/04/2019 10/05/2019 Carotid disease, bilateral 08/30/201509/20 Carotid disease, bilateral 08/30/201502/28 Renal cyst 09/29/2013 10/05/2019 Xerosis cutis 04/15/2013 09/07/2014 Keratosis pilaris 04/15/2013 09/07/2014 Irritant dermatitis 04/15/2013 09/07/2014 Testalgia 03/23/2013 09/07/2014 Frequency of urination 03/23/2013 9 Melanocytic nevi of trunk 04/25/20122014 Surgical Scars 04/25/2012 09/02/2012 Viral warts, unspecified 03/18/2012 012 Atypical Melanocytic Compoun d and Junctional Nevus moles of upper back 02/01/2012 09/02/2012 Actinic Keratosis (Premalignant AK) 02/01/2012 08/30/2015 Irritated//Inflamed Seborrhe ic Keratoses (potentially and otherwise) 02/01/2012 09/02/2012 Cutaneous skin tags 02/01/2012 09/02/2012 Actinic skin damage 02/01/2012 09/02/2012 Solar Lentigines 02/01/2012 09/07/2014 Wilson angiomas 02/01/2012 09/02/2012 Impaired fasting glucose 08/29/2011 020 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 Other physical therapy 01/15/2011 1 First degree hemorrhoids 10/10/2008 12/03/2 020 Benign neoplasm of scalp and skin of neck 200708/20/2009 Neoplasm of uncertain behavior of skin 8 08/20/2009 Inflamed seborrheic keratosis 08/21/2008 Viral warts, unspecified 08/21/2008 009 NEUROFIBROMA////BENIGN AYE SKIN TRUNK 08/21/2008 09/02/2012 SEBORRHEIC KERATOSES NOS 08/21/2008 019 SOLAR LENGINES///DYSCHROMIA OTHER 08/21/2008 08/20/2009 Hypoglycemia, unspecified 08/10/20082010 Internal hemorrhoids without mention of complica tion 06/23/2006 Diverticulosis of colon (without mention of hemo rrhage) 06/23/2006 Bundle branch block, unspecified 09/07/2014 documented as of this encounter (statuses as of 03/03/2022) [facility] History of Past illness Narrative* Problem Noted Date Resolved Date Nausea 08/01/2021 08/01/2021 Bloating 08/01/2021 08/01/2021 Duplicated ureter, 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 Orthostatic dizziness 10/04/2019 08/29/2021 Thrombocytopenia 06/20/2019 02/28/2021 Anal bleeding 02/04/2019 10/05/2019 Carotid disease, bilateral 08/30/201509/20 Carotid disease, bilateral 08/30/201502/28 Renal cyst 09/29/2013 10/05/2019 Xerosis cutis 04/15/2013 09/07/2014 Keratosis pilaris 04/15/2013 09/07/2014 Irritant dermatitis 04/15/2013 09/07/2014 Testalgia 03/23/2013 09/07/2014 Frequency of urination 03/23/2013 9 Melanocytic nevi of trunk 04/25/20122014 Surgical Scars 04/25/2012 09/02/2012 Viral warts, unspecified 03/18/2012 012 Atypical Melanocytic Compoun d and Junctional Nevus moles of upper back 02/01/2012 09/02/2012 Actinic Keratosis (Premalignant AK) 02/01/2012 08/30/2015 Irritated//Inflamed Seborrhe ic Keratoses (potentially and otherwise) 02/01/2012 09/02/2012 Cutaneous skin tags 02/01/2012 09/02/2012 Actinic skin damage 02/01/2012 09/02/2012 Solar Lentigines 02/01/2012 09/07/2014 Wilson angiomas 02/01/2012 09/02/2012 Impaired fasting glucose 08/29/2011 020 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 Other physical therapy 01/15/2011 1 First degree hemorrhoids 10/10/2008 020 Benign neoplasm of scalp and skin of neck 200708/20/2009 Neoplasm of uncertain behavior of skin 8 08/20/2009 Inflamed seborrheic keratosis 08/21/2008 Viral warts, unspecified 08/21/2008 009 NEUROFIBROMA////BENIGN AYE SKIN TRUNK 08/21/2008 09/02/2012 SEBORRHEIC KERATOSES NOS 08/21/2008 019 SOLAR LENGINES///DYSCHROMIA OTHER 08/21/2008 08/20/2009 Hypoglycemia, unspecified 08/10/20082010 Internal hemorrhoids without mention of complica tion 06/23/2006 Diverticulosis of colon (without mention of hemo rrhage) 06/23/2006 Bundle branch block, unspecified 09/07/2014 documented as of this encounter (statuses as of 03/06/2022) [facility] History of Past illness Narrative* Problem Noted Date Resolved Date Nausea 08/01/2021 08/01/2021 Bloating 08/01/2021 08/01/2021 Duplicated ureter, 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 Orthostatic dizziness 10/04/2019 08/29/2021 Thrombocytopenia 06/20/2019 02/28/2021 Anal bleeding 02/04/2019 10/05/2019 Carotid disease, bilateral 08/30/201509/20 Carotid disease, bilateral 08/30/201502/28 Renal cyst 09/29/2013 10/05/2019 Xerosis cutis 04/15/2013 09/07/2014 Keratosis pilaris 04/15/2013 09/07/2014 Irritant dermatitis 04/15/2013 09/07/2014 Testalgia 03/23/2013 09/07/2014 Frequency of urination 03/23/2013 9 Melanocytic nevi of trunk 04/25/20122014 Surgical Scars 04/25/2012 09/02/2012 Viral warts, unspecified 03/18/2012 012 Atypical Melanocytic Compoun d and Junctional Nevus moles of upper back 02/01/2012 09/02/2012 Actinic Keratosis (Premalignant AK) 02/01/2012 08/30/2015 Irritated//Inflamed Seborrhe ic Keratoses (potentially and otherwise) 02/01/2012 09/02/2012 Cutaneous skin tags 02/01/2012 09/02/2012 Actinic skin damage 02/01/2012 09/02/2012 Solar Lentigines 02/01/2012 09/07/2014 Wilson angiomas 02/01/2012 09/02/2012 Impaired fasting glucose 08/29/2011 020 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 Other physical therapy 01/15/2011 1 First degree hemorrhoids 10/10/2008 020 Benign neoplasm of scalp and skin of neck 200708/20/2009 Neoplasm of uncertain behavior of skin 8 08/20/2009 Inflamed seborrheic keratosis 08/21/2008 Viral warts, unspecified 08/21/2008 009 NEUROFIBROMA////BENIGN AYE SKIN TRUNK 08/21/2008 09/02/2012 SEBORRHEIC KERATOSES NOS 08/21/2008 019 SOLAR LENGINES///DYSCHROMIA OTHER 08/21/2008 08/20/2009 Hypoglycemia, unspecified 08/10/20082010 Internal hemorrhoids without mention of complica tion 06/23/2006 Diverticulosis of colon (without mention of hemo rrhage) 06/23/2006 Bundle branch block, unspecified 09/07/2014 documented as of this encounter (statuses as of 03/10/2022) [facility] History of Past illness Narrative* Problem Noted Date Resolved Date Nausea 08/01/2021 08/01/2021 Bloating 08/01/2021 08/01/2021 Duplicated ureter, 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 Orthostatic dizziness 10/04/2019 08/29/2021 Thrombocytopenia 06/20/2019 02/28/2021 Anal bleeding 02/04/2019 10/05/2019 Carotid disease, bilateral 08/30/201509/20 Carotid disease, bilateral 08/30/201502/28 Renal cyst 09/29/2013 10/05/2019 Xerosis cutis 04/15/2013 09/07/2014 Keratosis pilaris 04/15/2013 09/07/2014 Irritant dermatitis 04/15/2013 09/07/2014 Testalgia 03/23/2013 09/07/2014 Frequency of urination 03/23/2013 9 Melanocytic nevi of trunk 04/25/20122014 Surgical Scars 04/25/2012 09/02/2012 Viral warts, unspecified 03/18/2012 012 Atypical Melanocytic Compoun d and Junctional Nevus moles of upper back 02/01/2012 09/02/2012 Actinic Keratosis (Premalignant AK) 02/01/2012 08/30/2015 Irritated//Inflamed Seborrhe ic Keratoses (potentially and otherwise) 02/01/2012 09/02/2012 Cutaneous skin tags 02/01/2012 09/02/2012 Actinic skin damage 02/01/2012 09/02/2012 Solar Lentigines 02/01/2012 09/07/2014 Wilson angiomas 02/01/2012 09/02/2012 Impaired fasting glucose 08/29/2011 020 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 Other physical therapy 01/15/2011 1 First degree hemorrhoids 10/10/2008 020 Benign neoplasm of scalp and skin of neck 200708/20/2009 Neoplasm of uncertain behavior of skin 8 08/20/2009 Inflamed seborrheic keratosis 08/21/2008 Viral warts, unspecified 08/21/2008 009 NEUROFIBROMA////BENIGN AYE SKIN TRUNK 08/21/2008 09/02/2012 SEBORRHEIC KERATOSES NOS 08/21/2008 019 SOLAR LENGINES///DYSCHROMIA OTHER 08/21/2008 08/20/2009 Hypoglycemia, unspecified 08/10/20082010 Internal hemorrhoids without mention of complica tion 06/23/2006 Diverticulosis of colon (without mention of hemo rrhage) 06/23/2006 Bundle branch block, unspecified 09/07/2014 documented as of this encounter (statuses as of 03/13/2022) [facility] History of Past illness Narrative* Problem Noted Date Resolved Date Nausea 08/01/2021 08/01/2021 Bloating 08/01/2021 08/01/2021 Duplicated ureter, 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 Orthostatic dizziness 10/04/2019 08/29/2021 Thrombocytopenia 06/20/2019 02/28/2021 Anal bleeding 02/04/2019 10/05/2019 Carotid disease, bilateral 08/30/201509/20 Carotid disease, bilateral 08/30/201502/28 Renal cyst 09/29/2013 10/05/2019 Xerosis cutis 04/15/2013 09/07/2014 Keratosis pilaris 04/15/2013 09/07/2014 Irritant dermatitis 04/15/2013 09/07/2014 Testalgia 03/23/2013 09/07/2014 Frequency of urination 03/23/2013 9 Melanocytic nevi of trunk 04/25/20122014 Surgical Scars 04/25/2012 09/02/2012 Viral warts, unspecified 03/18/2012 012 Atypical Melanocytic Compoun d and Junctional Nevus moles of upper back 02/01/2012 09/02/2012 Actinic Keratosis (Premalignant AK) 02/01/2012 08/30/2015 Irritated//Inflamed Seborrhe ic Keratoses (potentially and otherwise) 02/01/2012 09/02/2012 Cutaneous skin tags 02/01/2012 09/02/2012 Actinic skin damage 02/01/2012 09/02/2012 Solar Lentigines 02/01/2012 09/07/2014 Wilson angiomas 02/01/2012 09/02/2012 Impaired fasting glucose 08/29/2011 020 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 Other physical therapy 01/15/2011 1 First degree hemorrhoids 10/10/2008 020 Benign neoplasm of scalp and skin of neck 200708/20/2009 Neoplasm of uncertain behavior of skin 8 08/20/2009 Inflamed seborrheic keratosis 08/21/2008 Viral warts, unspecified 08/21/2008 009 NEUROFIBROMA////BENIGN AYE SKIN TRUNK 08/21/2008 09/02/2012 SEBORRHEIC KERATOSES NOS 08/21/2008 019 SOLAR LENGINES///DYSCHROMIA OTHER 08/21/2008 08/20/2009 Hypoglycemia, unspecified 08/10/20082010 Internal hemorrhoids without mention of complica tion 06/23/2006 Diverticulosis of colon (without mention of hemo rrhage) 06/23/2006 Bundle branch block, unspecified 09/07/2014 documented as of this encounter (statuses as of 03/19/2022) [facility] History of Past illness Narrative* Problem Noted Date Resolved Date Nausea 08/01/2021 08/01/2021 Bloating 08/01/2021 08/01/2021 Duplicated ureter, 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 Orthostatic dizziness 10/04/2019 08/29/2021 Thrombocytopenia 06/20/2019 02/28/2021 Anal bleeding 02/04/2019 10/05/2019 Carotid disease, bilateral 08/30/201509/20 Carotid disease, bilateral 08/30/201502/28 Renal cyst 09/29/2013 10/05/2019 Xerosis cutis 04/15/2013 09/07/2014 Keratosis pilaris 04/15/2013 09/07/2014 Irritant dermatitis 04/15/2013 09/07/2014 Testalgia 03/23/2013 09/07/2014 Frequency of urination 03/23/2013 9 Melanocytic nevi of trunk 04/25/20122014 Surgical Scars 04/25/2012 09/02/2012 Viral warts, unspecified 03/18/2012 012 Atypical Melanocytic Compoun d and Junctional Nevus moles of upper back 02/01/2012 09/02/2012 Actinic Keratosis (Premalignant AK) 02/01/2012 08/30/2015 Irritated//Inflamed Seborrhe ic Keratoses (potentially and otherwise) 02/01/2012 09/02/2012 Cutaneous skin tags 02/01/2012 09/02/2012 Actinic skin damage 02/01/2012 09/02/2012 Solar Lentigines 02/01/2012 09/07/2014 Wilson angiomas 02/01/2012 09/02/2012 Impaired fasting glucose 08/29/2011 020 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 Other physical therapy 01/15/2011 1 First degree hemorrhoids 10/10/2008 020 Benign neoplasm of scalp and skin of neck 200708/20/2009 Neoplasm of uncertain behavior of skin 8 08/20/2009 Inflamed seborrheic keratosis 08/21/2008 Viral warts, unspecified 08/21/2008 009 NEUROFIBROMA////BENIGN AYE SKIN TRUNK 08/21/2008 09/02/2012 SEBORRHEIC KERATOSES NOS 08/21/2008 019 SOLAR LENGINES///DYSCHROMIA OTHER 08/21/2008 08/20/2009 Hypoglycemia, unspecified 08/10/20082010 Internal hemorrhoids without mention of complica tion 06/23/2006 Diverticulosis of colon (without mention of hemo rrhage) 06/23/2006 Bundle branch block, unspecified 09/07/2014 documented as of this encounter (statuses as of 03/19/2022) [facility] of Past illness Narrative* Problem Noted Date Resolved Date Nausea 08/01/2021 08/01/2021 Bloating 08/01/2021 08/01/2021 Duplicated ureter, 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 Orthostatic dizziness 10/04/2019 08/29/2021 Thrombocytopenia 06/20/2019 02/28/2021 Anal bleeding 02/04/2019 10/05/2019 Carotid disease, bilateral 08/30/201509/20 Carotid disease, bilateral 08/30/201502/28 Renal cyst 09/29/2013 10/05/2019 Xerosis cutis 04/15/2013 09/07/2014 Keratosis pilaris 04/15/2013 09/07/2014 Irritant dermatitis 04/15/2013 09/07/2014 Testalgia 03/23/2013 09/07/2014 Frequency of urination 03/23/2013 9 Melanocytic nevi of trunk 04/25/20122014 Surgical Scars 04/25/2012 09/02/2012 Viral warts, unspecified 03/18/2012 012 Atypical Melanocytic Compoun d and Junctional Nevus moles of upper back 02/01/2012 09/02/2012 Actinic Keratosis (Premalignant AK) 02/01/2012 08/30/2015 Irritated//Inflamed Seborrhe ic Keratoses (potentially and otherwise) 02/01/2012 09/02/2012 Cutaneous skin tags 02/01/2012 09/02/2012 Actinic skin damage 02/01/2012 09/02/2012 Solar Lentigines 02/01/2012 09/07/2014 Wilson angiomas 02/01/2012 09/02/2012 Impaired fasting glucose 08/29/2011 020 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 Other physical therapy 01/15/2011 1 First degree hemorrhoids 10/10/2008 020 Benign neoplasm of scalp and skin of neck 200708/20/2009 Neoplasm of uncertain behavior of skin 8 08/20/2009 Inflamed seborrheic keratosis 08/21/2008 Viral warts, unspecified 08/21/2008 009 NEUROFIBROMA////BENIGN AYE SKIN TRUNK 08/21/2008 09/02/2012 SEBORRHEIC KERATOSES NOS 08/21/2008 019 SOLAR LENGINES///DYSCHROMIA OTHER 08/21/2008 08/20/2009 Hypoglycemia, unspecified 08/10/20082010 Internal hemorrhoids without mention of complica tion 06/23/2006 Diverticulosis of colon (without mention of hemo rrhage) 06/23/2006 Bundle branch block, unspecified 09/07/2014 documented as of this encounter (statuses as of 03/26/2022) [facility]09[facility]21 History of Past illness Narrative* Problem Noted Date Resolved Date Nausea 08/01/2021 08/01/2021 Bloating 08/01/2021 08/01/2021 Duplicated ureter, 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 Orthostatic dizziness 10/04/2019 08/29/2021 Thrombocytopenia 06/20/2019 02/28/2021 Anal bleeding 02/04/2019 10/05/2019 Carotid disease, bilateral 08/30/201509/20 Carotid disease, bilateral 08/30/201502/28 Renal cyst 09/29/2013 10/05/2019 Xerosis cutis 04/15/2013 09/07/2014 Keratosis pilaris 04/15/2013 09/07/2014 Irritant dermatitis 04/15/2013 09/07/2014 Testalgia 03/23/2013 09/07/2014 Frequency of urination 03/23/2013 9 Melanocytic nevi of trunk 04/25/20122014 Surgical Scars 04/25/2012 09/02/2012 Viral warts, unspecified 03/18/2012 012 Atypical Melanocytic Compoun d and Junctional Nevus moles of upper back 02/01/2012 09/02/2012 Actinic Keratosis (Premalignant AK) 02/01/2012 08/30/2015 Irritated//Inflamed Seborrhe ic Keratoses (potentially and otherwise) 02/01/2012 09/02/2012 Cutaneous skin tags 02/01/2012 09/02/2012 Actinic skin damage 02/01/2012 09/02/2012 Solar Lentigines 02/01/2012 09/07/2014 Wilson angiomas 02/01/2012 09/02/2012 Impaired fasting glucose 08/29/2011 020 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 Other physical therapy 01/15/2011 1 First degree hemorrhoids 10/10/2008 020 Benign neoplasm of scalp and skin of neck 200708/20/2009 Neoplasm of uncertain behavior of skin 8 08/20/2009 Inflamed seborrheic keratosis 08/21/2008 Viral warts, unspecified 08/21/2008 009 NEUROFIBROMA////BENIGN AYE SKIN TRUNK 08/21/2008 09/02/2012 SEBORRHEIC KERATOSES NOS 08/21/2008 019 SOLAR LENGINES///DYSCHROMIA OTHER 08/21/2008 08/20/2009 Hypoglycemia, unspecified 08/10/20082010 Internal hemorrhoids without mention of complica tion 06/23/2006 Diverticulosis of colon (without mention of hemo rrhage) 06/23/2006 Bundle branch block, unspecified 09/07/2014 documented as of this encounter (statuses as of 04/10/2022) [facility] History of Past illness Narrative* Problem Noted Date Resolved Date Nausea 08/01/2021 08/01/2021 Bloating 08/01/2021 08/01/2021 Duplicated ureter, 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 Orthostatic dizziness 10/04/2019 08/29/2021 Thrombocytopenia 06/20/2019 02/28/2021 Anal bleeding 02/04/2019 10/05/2019 Carotid disease, bilateral 08/30/201509/20 Carotid disease, bilateral 08/30/201502/28 Renal cyst 09/29/2013 10/05/2019 Xerosis cutis 04/15/2013 09/07/2014 Keratosis pilaris 04/15/2013 09/07/2014 Irritant dermatitis 04/15/2013 09/07/2014 Testalgia 03/23/2013 09/07/2014 Frequency of urination 03/23/2013 9 Melanocytic nevi of trunk 04/25/20122014 Surgical Scars 04/25/2012 09/02/2012 Viral warts, unspecified 03/18/2012 012 Atypical Melanocytic Compoun d and Junctional Nevus moles of upper back 02/01/2012 09/02/2012 Actinic Keratosis (Premalignant AK) 02/01/2012 08/30/2015 Irritated//Inflamed Seborrhe ic Keratoses (potentially and otherwise) 02/01/2012 09/02/2012 Cutaneous skin tags 02/01/2012 09/02/2012 Actinic skin damage 02/01/2012 09/02/2012 Solar Lentigines 02/01/2012 09/07/2014 Wilson angiomas 02/01/2012 09/02/2012 Impaired fasting glucose 08/29/2011 020 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 Other physical therapy 01/15/2011 1 First degree hemorrhoids 10/10/2008 020 Benign neoplasm of scalp and skin of neck 200708/20/2009 Neoplasm of uncertain behavior of skin 8 08/20/2009 Inflamed seborrheic keratosis 08/21/2008 Viral warts, unspecified 08/21/2008 009 NEUROFIBROMA////BENIGN AYE SKIN TRUNK 08/21/2008 09/02/2012 SEBORRHEIC KERATOSES NOS 08/21/2008 019 SOLAR LENGINES///DYSCHROMIA OTHER 08/21/2008 08/20/2009 Hypoglycemia, unspecified 08/10/20082010 Internal hemorrhoids without mention of complica tion 06/23/2006 Diverticulosis of colon (without mention of hemo rrhage) 06/23/2006 Bundle branch block, unspecified 09/07/2014 documented as of this encounter (statuses as of 07/07/2022) [facility] History of Past illness Narrative* Problem Noted Date Resolved Date Nausea 08/01/2021 08/01/2021 Bloating 08/01/2021 08/01/2021 Duplicated ureter, 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 Orthostatic dizziness 10/04/2019 08/29/2021 Thrombocytopenia 06/20/2019 02/28/2021 Anal bleeding 02/04/2019 10/05/2019 Carotid disease, bilateral 08/30/201509/20 Carotid disease, bilateral 08/30/201502/28 Renal cyst 09/29/2013 10/05/2019 Xerosis cutis 04/15/2013 09/07/2014 Keratosis pilaris 04/15/2013 09/07/2014 Irritant dermatitis 04/15/2013 09/07/2014 Testalgia 03/23/2013 09/07/2014 Frequency of urination 03/23/2013 9 Melanocytic nevi of trunk 04/25/20122014 Surgical Scars 04/25/2012 09/02/2012 Viral warts, unspecified 03/18/2012 012 Atypical Melanocytic Compoun d and Junctional Nevus moles of upper back 02/01/2012 09/02/2012 Actinic Keratosis (Premalignant AK) 02/01/2012 08/30/2015 Irritated//Inflamed Seborrhe ic Keratoses (potentially and otherwise) 02/01/2012 09/02/2012 Cutaneous skin tags 02/01/2012 09/02/2012 Actinic skin damage 02/01/2012 09/02/2012 Solar Lentigines 02/01/2012 09/07/2014 Wilson angiomas 02/01/2012 09/02/2012 Impaired fasting glucose 08/29/2011 020 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 Other physical therapy 01/15/2011 1 First degree hemorrhoids 10/10/2008 020 Benign neoplasm of scalp and skin of neck 200708/20/2009 Neoplasm of uncertain behavior of skin 8 08/20/2009 Inflamed seborrheic keratosis 08/21/2008 Viral warts, unspecified 08/21/2008 009 NEUROFIBROMA////BENIGN AYE SKIN TRUNK 08/21/2008 09/02/2012 SEBORRHEIC KERATOSES NOS 08/21/2008 019 SOLAR LENGINES///DYSCHROMIA OTHER 08/21/2008 08/20/2009 Hypoglycemia, unspecified 08/10/20082010 Internal hemorrhoids without mention of complica tion 06/23/2006 Diverticulosis of colon (without mention of hemo rrhage) 06/23/2006 Bundle branch block, unspecified 09/07/2014 documented as of this encounter (statuses as of 07/29/2022) [facility] History of Past illness Narrative* Problem Noted Date Resolved Date Nausea 08/01/2021 08/01/2021 Bloating 08/01/2021 08/01/2021 Duplicated ureter, 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 Orthostatic dizziness 10/04/2019 08/29/2021 Thrombocytopenia 06/20/2019 02/28/2021 Anal bleeding 02/04/2019 10/05/2019 Carotid disease, bilateral 08/30/201509/20 Carotid disease, bilateral 08/30/201502/28 Renal cyst 09/29/2013 10/05/2019 Xerosis cutis 04/15/2013 09/07/2014 Keratosis pilaris 04/15/2013 09/07/2014 Irritant dermatitis 04/15/2013 09/07/2014 Testalgia 03/23/2013 09/07/2014 Frequency of urination 03/23/2013 9 Melanocytic nevi of trunk 04/25/20122014 Surgical Scars 04/25/2012 09/02/2012 Viral warts, unspecified 03/18/2012 012 Atypical Melanocytic Compoun d and Junctional Nevus moles of upper back 02/01/2012 09/02/2012 Actinic Keratosis (Premalignant AK) 02/01/2012 08/30/2015 Irritated//Inflamed Seborrhe ic Keratoses (potentially and otherwise) 02/01/2012 09/02/2012 Cutaneous skin tags 02/01/2012 09/02/2012 Actinic skin damage 02/01/2012 09/02/2012 Solar Lentigines 02/01/2012 09/07/2014 Wilson angiomas 02/01/2012 09/02/2012 Impaired fasting glucose 08/29/2011 020 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 Other physical therapy 01/15/2011 1 First degree hemorrhoids 10/10/2008 020 Benign neoplasm of scalp and skin of neck 200708/20/2009 Neoplasm of uncertain behavior of skin 8 08/20/2009 Inflamed seborrheic keratosis 08/21/2008 Viral warts, unspecified 08/21/2008 009 NEUROFIBROMA////BENIGN AYE SKIN TRUNK 08/21/2008 09/02/2012 SEBORRHEIC KERATOSES NOS 08/21/2008 019 SOLAR LENGINES///DYSCHROMIA OTHER 08/21/2008 08/20/2009 Hypoglycemia, unspecified 08/10/20082010 Internal hemorrhoids without mention of complica tion 06/23/2006 Diverticulosis of colon (without mention of hemo rrhage) 06/23/2006 Bundle branch block, unspecified 09/07/2014 documented as of this encounter (statuses as of 08/21/2022) [facility] History of Past illness Narrative* Problem Noted Date Resolved Date Nausea 08/01/2021 08/01/2021 Bloating 08/01/2021 08/01/2021 Duplicated ureter, 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 Orthostatic dizziness 10/04/2019 08/29/2021 Thrombocytopenia 06/20/2019 02/28/2021 Anal bleeding 02/04/2019 10/05/2019 Carotid disease, bilateral 08/30/201509/20 Carotid disease, bilateral 08/30/201502/28 Renal cyst 09/29/2013 10/05/2019 Xerosis cutis 04/15/2013 09/07/2014 Keratosis pilaris 04/15/2013 09/07/2014 Irritant dermatitis 04/15/2013 09/07/2014 Testalgia 03/23/2013 09/07/2014 Frequency of urination 03/23/2013 9 Melanocytic nevi of trunk 04/25/20122014 Surgical Scars 04/25/2012 09/02/2012 Viral warts, unspecified 03/18/2012 012 Atypical Melanocytic Compoun d and Junctional Nevus moles of upper back 02/01/2012 09/02/2012 Actinic Keratosis (Premalignant AK) 02/01/2012 08/30/2015 Irritated//Inflamed Seborrhe ic Keratoses (potentially and otherwise) 02/01/2012 09/02/2012 Cutaneous skin tags 02/01/2012 09/02/2012 Actinic skin damage 02/01/2012 09/02/2012 Solar Lentigines 02/01/2012 09/07/2014 Wilson angiomas 02/01/2012 09/02/2012 Impaired fasting glucose 08/29/2011 020 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 Other physical therapy 01/15/2011 1 First degree hemorrhoids 10/10/2008 020 Benign neoplasm of scalp and skin of neck 200708/20/2009 Neoplasm of uncertain behavior of skin 8 08/20/2009 Inflamed seborrheic keratosis 08/21/2008 Viral warts, unspecified 08/21/2008 009 NEUROFIBROMA////BENIGN YAE SKIN TRUNK 08/21/2008 09/02/2012 SEBORRHEIC KERATOSES NOS 08/21/2008 019 SOLAR LENGINES///DYSCHROMIA OTHER 08/21/2008 08/20/2009 Hypoglycemia, unspecified 08/10/20082010 Internal hemorrhoids without mention of complica tion 06/23/2006 Diverticulosis of colon (without mention of hemo rrhage) 06/23/2006 Bundle branch block, unspecified 09/07/2014 documented as of this encounter (statuses as of 09/10/2022) [facility] History of Past illness Narrative* Problem Noted Date Resolved Date Nausea 08/01/2021 08/01/2021 Bloating 08/01/2021 08/01/2021 Duplicated ureter, 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 Orthostatic dizziness 10/04/2019 08/29/2021 Thrombocytopenia 06/20/2019 02/28/2021 Anal bleeding 02/04/2019 10/05/2019 Carotid disease, bilateral 08/30/201509/20 Carotid disease, bilateral 08/30/201502/28 Renal cyst 09/29/2013 10/05/2019 Xerosis cutis 04/15/2013 09/07/2014 Keratosis pilaris 04/15/2013 09/07/2014 Irritant dermatitis 04/15/2013 09/07/2014 Testalgia 03/23/2013 09/07/2014 Frequency of urination 03/23/2013 9 Melanocytic nevi of trunk 04/25/20122014 Surgical Scars 04/25/2012 09/02/2012 Viral warts, unspecified 03/18/2012 012 Atypical Melanocytic Compoun d and Junctional Nevus moles of upper back 02/01/2012 09/02/2012 Actinic Keratosis (Premalignant AK) 02/01/2012 08/30/2015 Irritated//Inflamed Seborrhe ic Keratoses (potentially and otherwise) 02/01/2012 09/02/2012 Cutaneous skin tags 02/01/2012 09/02/2012 Actinic skin damage 02/01/2012 09/02/2012 Solar Lentigines 02/01/2012 09/07/2014 Wilson angiomas 02/01/2012 09/02/2012 Impaired fasting glucose 08/29/2011 020 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 Other physical therapy 01/15/2011 1 First degree hemorrhoids 10/10/2008 020 Benign neoplasm of scalp and skin of neck 200708/20/2009 Neoplasm of uncertain behavior of skin 8 08/20/2009 Inflamed seborrheic keratosis 08/21/2008 Viral warts, unspecified 08/21/2008 009 NEUROFIBROMA////BENIGN AYE SKIN TRUNK 08/21/2008 09/02/2012 SEBORRHEIC KERATOSES NOS 08/21/2008 019 SOLAR LENGINES///DYSCHROMIA OTHER 08/21/2008 08/20/2009 Hypoglycemia, unspecified 08/10/20082010 Internal hemorrhoids without mention of complica tion 06/23/2006 Diverticulosis of colon (without mention of hemo rrhage) 06/23/2006 Bundle branch block, unspecified 09/07/2014 documented as of this encounter (statuses as of 09/20/2022) [facility] History of Past illness Narrative* Problem Noted Date Resolved Date Nausea 08/01/2021 08/01/2021 Bloating 08/01/2021 08/01/2021 Duplicated ureter, 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 Orthostatic dizziness 10/04/2019 08/29/2021 Thrombocytopenia 06/20/2019 02/28/2021 Anal bleeding 02/04/2019 10/05/2019 Carotid disease, bilateral 08/30/201509/20 Carotid disease, bilateral 08/30/201502/28 Renal cyst 09/29/2013 10/05/2019 Xerosis cutis 04/15/2013 09/07/2014 Keratosis pilaris 04/15/2013 09/07/2014 Irritant dermatitis 04/15/2013 09/07/2014 Testalgia 03/23/2013 09/07/2014 Frequency of urination 03/23/2013 05 9 Melanocytic nevi of trunk 04/25/20122014 Surgical Scars 04/25/2012 09/02/2012 Viral warts, unspecified 03/18/2012 012 Atypical Melanocytic Compoun d and Junctional Nevus moles of upper back 02/01/2012 09/02/2012 Actinic Keratosis (Premalignant AK) 02/01/2012 08/30/2015 Irritated//Inflamed Seborrhe ic Keratoses (potentially and otherwise) 02/01/2012 09/02/2012 Cutaneous skin tags 02/01/2012 09/02/2012 Actinic skin damage 02/01/2012 09/02/2012 Solar Lentigines 02/01/2012 09/07/2014 Wilson angiomas 02/01/2012 09/02/2012 Impaired fasting glucose 08/29/2011 020 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 Other physical therapy 01/15/2011 1 First degree hemorrhoids 10/10/2008 020 Benign neoplasm of scalp and skin of neck 200708/20/2009 Neoplasm of uncertain behavior of skin 8 08/20/2009 Inflamed seborrheic keratosis 08/21/2008 Viral warts, unspecified 08/21/2008 009 NEUROFIBROMA////BENIGN AYE SKIN TRUNK 08/21/2008 09/02/2012 SEBORRHEIC KERATOSES NOS 08/21/2008 019 SOLAR LENGINES///DYSCHROMIA OTHER 08/21/2008 08/20/2009 Hypoglycemia, unspecified 08/10/20082010 Internal hemorrhoids without mention of complica tion 06/23/2006 Diverticulosis of colon (without mention of hemo rrhage) 06/23/2006 Bundle branch block, unspecified 09/07/2014 documented as of this encounter (statuses as of 09/22/2022) [facility] History of Past illness Narrative* Problem Noted Date Resolved Date Nausea 08/01/2021 08/01/2021 Bloating 08/01/2021 08/01/2021 Duplicated ureter, 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 Orthostatic dizziness 10/04/2019 08/29/2021 Thrombocytopenia 06/20/2019 02/28/2021 Anal bleeding 02/04/2019 10/05/2019 Carotid disease, bilateral 08/30/201509/20 Carotid disease, bilateral 08/30/201502/28 Renal cyst 09/29/2013 10/05/2019 Xerosis cutis 04/15/2013 09/07/2014 Keratosis pilaris 04/15/2013 09/07/2014 Irritant dermatitis 04/15/2013 09/07/2014 Testalgia 03/23/2013 09/07/2014 Frequency of urination 03/23/2013 9 Melanocytic nevi of trunk 04/25/20122014 Surgical Scars 04/25/2012 09/02/2012 Viral warts, unspecified 03/18/2012 012 Atypical Melanocytic Compoun d and Junctional Nevus moles of upper back 02/01/2012 09/02/2012 Actinic Keratosis (Premalignant AK) 02/01/2012 08/30/2015 Irritated//Inflamed Seborrhe ic Keratoses (potentially and otherwise) 02/01/2012 09/02/2012 Cutaneous skin tags 02/01/2012 09/02/2012 Actinic skin damage 02/01/2012 09/02/2012 Solar Lentigines 02/01/2012 09/07/2014 Wilson angiomas 02/01/2012 09/02/2012 Impaired fasting glucose 08/29/2011 020 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 Other physical therapy 01/15/2011 1 First degree hemorrhoids 10/10/2008 020 Benign neoplasm of scalp and skin of neck 200708/20/2009 Neoplasm of uncertain behavior of skin 8 08/20/2009 Inflamed seborrheic keratosis 08/21/2008 Viral warts, unspecified 08/21/2008 009 NEUROFIBROMA////BENIGN AYE SKIN TRUNK 08/21/2008 09/02/2012 SEBORRHEIC KERATOSES NOS 08/21/2008 019 SOLAR LENGINES///DYSCHROMIA OTHER 08/21/2008 08/20/2009 Hypoglycemia, unspecified 08/10/20082010 Internal hemorrhoids without mention of complica tion 06/23/2006 Diverticulosis of colon (without mention of hemo rrhage) 06/23/2006 Bundle branch block, unspecified 09/07/2014 documented as of this encounter (statuses as of 10/10/2022) [facility] History of Past illness Narrative* Problem Noted Date Resolved Date Nausea 08/01/2021 08/01/2021 Bloating 08/01/2021 08/01/2021 Duplicated ureter, 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 Orthostatic dizziness 10/04/2019 08/29/2021 Thrombocytopenia 06/20/2019 02/28/2021 Anal bleeding 02/04/2019 10/05/2019 Carotid disease, bilateral 08/30/201509/20 Carotid disease, bilateral 08/30/201502/28 Renal cyst 09/29/2013 10/05/2019 Xerosis cutis 04/15/2013 09/07/2014 Keratosis pilaris 04/15/2013 09/07/2014 Irritant dermatitis 04/15/2013 09/07/2014 Testalgia 03/23/2013 09/07/2014 Frequency of urination 03/23/2013 9 Melanocytic nevi of trunk 04/25/20122014 Surgical Scars 04/25/2012 09/02/2012 Viral warts, unspecified 03/18/2012 012 Atypical Melanocytic Compoun d and Junctional Nevus moles of upper back 02/01/2012 09/02/2012 Actinic Keratosis (Premalignant AK) 02/01/2012 08/30/2015 Irritated//Inflamed Seborrhe ic Keratoses (potentially and otherwise) 02/01/2012 09/02/2012 Cutaneous skin tags 02/01/2012 09/02/2012 Actinic skin damage 02/01/2012 09/02/2012 Solar Lentigines 02/01/2012 09/07/2014 Wilson angiomas 02/01/2012 09/02/2012 Impaired fasting glucose 08/29/2011 020 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 Other physical therapy 01/15/2011 1 First degree hemorrhoids 10/10/2008 020 Benign neoplasm of scalp and skin of neck 200708/20/2009 Neoplasm of uncertain behavior of skin 8 08/20/2009 Inflamed seborrheic keratosis 08/21/2008 Viral warts, unspecified 08/21/2008 009 NEUROFIBROMA////BENIGN AYE SKIN TRUNK 08/21/2008 09/02/2012 SEBORRHEIC KERATOSES NOS 08/21/2008 019 SOLAR LENGINES///DYSCHROMIA OTHER 08/21/2008 08/20/2009 Hypoglycemia, unspecified 08/10/20082010 Internal hemorrhoids without mention of complica tion 06/23/2006 Diverticulosis of colon (without mention of hemo rrhage) 06/23/2006 Bundle branch block, unspecified 09/07/2014 documented as of this encounter (statuses as of 10/10/2022) [facility] of Past illness Narrative* Problem Noted Date Resolved Date Nausea 08/01/2021 08/01/2021 Bloating 08/01/2021 08/01/2021 Duplicated ureter, 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 Orthostatic dizziness 10/04/2019 08/29/2021 Thrombocytopenia 06/20/2019 02/28/2021 Anal bleeding 02/04/2019 10/05/2019 Carotid disease, bilateral 08/30/201509/20 Carotid disease, bilateral 08/30/201502/28 Renal cyst 09/29/2013 10/05/2019 Xerosis cutis 04/15/2013 09/07/2014 Keratosis pilaris 04/15/2013 09/07/2014 Irritant dermatitis 04/15/2013 09/07/2014 Testalgia 03/23/2013 09/07/2014 Frequency of urination 03/23/2013 05 9 Melanocytic nevi of trunk 04/25/20122014 Surgical Scars 04/25/2012 09/02/2012 Viral warts, unspecified 03/18/2012 012 Atypical Melanocytic Compoun d and Junctional Nevus moles of upper back 02/01/2012 09/02/2012 Actinic Keratosis (Premalignant AK) 02/01/2012 08/30/2015 Irritated//Inflamed Seborrhe ic Keratoses (potentially and otherwise) 02/01/2012 09/02/2012 Cutaneous skin tags 02/01/2012 09/02/2012 Actinic skin damage 02/01/2012 09/02/2012 Solar Lentigines 02/01/2012 09/07/2014 Wilson angiomas 02/01/2012 09/02/2012 Impaired fasting glucose 08/29/2011 020 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 Other physical therapy 01/15/2011 1 First degree hemorrhoids 10/10/2008 020 Benign neoplasm of scalp and skin of neck 200708/20/2009 Neoplasm of uncertain behavior of skin 8 08/20/2009 Inflamed seborrheic keratosis 08/21/2008 Viral warts, unspecified 08/21/2008 009 NEUROFIBROMA////BENIGN AYE SKIN TRUNK 08/21/2008 09/02/2012 SEBORRHEIC KERATOSES NOS 08/21/2008 019 SOLAR LENGINES///DYSCHROMIA OTHER 08/21/2008 08/20/2009 Hypoglycemia, unspecified 08/10/20082010 Internal hemorrhoids without mention of complica tion 06/23/2006 Diverticulosis of colon (without mention of hemo rrhage) 06/23/2006 Bundle branch block, unspecified 09/07/2014 documented as of this encounter (statuses as of 12/29/2022) [facility] of Past illness Narrative* Problem Noted Date Resolved Date Nausea 08/01/2021 08/01/2021 Bloating 08/01/2021 08/01/2021 Duplicated ureter, 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 Orthostatic dizziness 10/04/2019 08/29/2021 Thrombocytopenia 06/20/2019 02/28/2021 Anal bleeding 02/04/2019 10/05/2019 Carotid disease, bilateral 08/30/201509/20 Carotid disease, bilateral 08/30/201502/28 Renal cyst 09/29/2013 10/05/2019 Xerosis cutis 04/15/2013 09/07/2014 Keratosis pilaris 04/15/2013 09/07/2014 Irritant dermatitis 04/15/2013 09/07/2014 Testalgia 03/23/2013 09/07/2014 Frequency of urination 03/23/2013 9 Melanocytic nevi of trunk 04/25/20122014 Surgical Scars 04/25/2012 09/02/2012 Viral warts, unspecified 03/18/2012 012 Atypical Melanocytic Compoun d and Junctional Nevus moles of upper back 02/01/2012 09/02/2012 Actinic Keratosis (Premalignant AK) 02/01/2012 08/30/2015 Irritated//Inflamed Seborrhe ic Keratoses (potentially and otherwise) 02/01/2012 09/02/2012 Cutaneous skin tags 02/01/2012 09/02/2012 Actinic skin damage 02/01/2012 09/02/2012 Solar Lentigines 02/01/2012 09/07/2014 Wilson angiomas 02/01/2012 09/02/2012 Impaired fasting glucose 08/29/2011 020 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 Other physical therapy 01/15/2011 1 First degree hemorrhoids 10/10/2008 020 Benign neoplasm of scalp and skin of neck 200708/20/2009 Neoplasm of uncertain behavior of skin 8 08/20/2009 Inflamed seborrheic keratosis 08/21/2008 Viral warts, unspecified 08/21/2008 009 NEUROFIBROMA////BENIGN AYE SKIN TRUNK 08/21/2008 09/02/2012 SEBORRHEIC KERATOSES NOS 08/21/2008 019 SOLAR LENGINES///DYSCHROMIA OTHER 08/21/2008 08/20/2009 Hypoglycemia, unspecified 08/10/20082010 Internal hemorrhoids without mention of complica tion 06/23/2006 Diverticulosis of colon (without mention of hemo rrhage) 06/23/2006 Bundle branch block, unspecified 09/07/2014 documented as of this encounter (statuses as of 01/09/2023) [facility] of Past illness Narrative* Problem Noted Date Resolved Date Nausea 08/01/2021 08/01/2021 Bloating 08/01/2021 08/01/2021 Duplicated ureter, 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 Orthostatic dizziness 10/04/2019 08/29/2021 Thrombocytopenia 06/20/2019 02/28/2021 Anal bleeding 02/04/2019 10/05/2019 Carotid disease, bilateral 08/30/201509/20 Carotid disease, bilateral 08/30/201502/28 Renal cyst 09/29/2013 10/05/2019 Xerosis cutis 04/15/2013 09/07/2014 Keratosis pilaris 04/15/2013 09/07/2014 Irritant dermatitis 04/15/2013 09/07/2014 Testalgia 03/23/2013 09/07/2014 Frequency of urination 03/23/2013 9 Melanocytic nevi of trunk 04/25/20122014 Surgical Scars 04/25/2012 09/02/2012 Viral warts, unspecified 03/18/2012 012 Atypical Melanocytic Compoun d and Junctional Nevus moles of upper back 02/01/2012 09/02/2012 Actinic Keratosis (Premalignant AK) 02/01/2012 08/30/2015 Irritated//Inflamed Seborrhe ic Keratoses (potentially and otherwise) 02/01/2012 09/02/2012 Cutaneous skin tags 02/01/2012 09/02/2012 Actinic skin damage 02/01/2012 09/02/2012 Solar Lentigines 02/01/2012 09/07/2014 Wilson angiomas 02/01/2012 09/02/2012 Impaired fasting glucose 08/29/2011 020 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 Other physical therapy 01/15/2011 1 First degree hemorrhoids 10/10/2008 020 Benign neoplasm of scalp and skin of neck 200708/20/2009 Neoplasm of uncertain behavior of skin 8 08/20/2009 Inflamed seborrheic keratosis 08/21/2008 Viral warts, unspecified 08/21/2008 009 NEUROFIBROMA////BENIGN AYE SKIN TRUNK 08/21/2008 09/02/2012 SEBORRHEIC KERATOSES NOS 08/21/2008 019 SOLAR LENGINES///DYSCHROMIA OTHER 08/21/2008 08/20/2009 Hypoglycemia, unspecified 08/10/20082010 Internal hemorrhoids without mention of complica tion 06/23/2006 Diverticulosis of colon (without mention of hemo rrhage) 06/23/2006 Bundle branch block, unspecified 09/07/2014 documented as of this encounter (statuses as of 01/22/2023) [facility]09-09-2021 History of Past illness Narrative* Problem Noted Date Resolved Date Nausea 08/01/2021 08/01/2021 Bloating 08/01/2021 08/01/2021 Duplicated ureter, 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 Orthostatic dizziness 10/04/2019 08/29/2021 Thrombocytopenia 06/20/2019 02/28/2021 Anal bleeding 02/04/2019 10/05/2019 Carotid disease, bilateral 08/30/201509/20 Carotid disease, bilateral 08/30/201502/28 Renal cyst 09/29/2013 10/05/2019 Xerosis cutis 04/15/2013 09/07/2014 Keratosis pilaris 04/15/2013 09/07/2014 Irritant dermatitis 04/15/2013 09/07/2014 Testalgia 03/23/2013 09/07/2014 Frequency of urination 03/23/2013 9 Melanocytic nevi of trunk 04/25/20122014 Surgical Scars 04/25/2012 09/02/2012 Viral warts, unspecified 03/18/2012 012 Atypical Melanocytic Compoun d and Junctional Nevus moles of upper back 02/01/2012 09/02/2012 Actinic Keratosis (Premalignant AK) 02/01/2012 08/30/2015 Irritated//Inflamed Seborrhe ic Keratoses (potentially and otherwise) 02/01/2012 09/02/2012 Cutaneous skin tags 02/01/2012 09/02/2012 Actinic skin damage 02/01/2012 09/02/2012 Solar Lentigines 02/01/2012 09/07/2014 Wilson angiomas 02/01/2012 09/02/2012 Impaired fasting glucose 08/29/2011 020 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 Other physical therapy 01/15/2011 1 First degree hemorrhoids 10/10/2008 020 Benign neoplasm of scalp and skin of neck 200708/20/2009 Neoplasm of uncertain behavior of skin 8 08/20/2009 Inflamed seborrheic keratosis 08/21/2008 Viral warts, unspecified 08/21/2008 009 NEUROFIBROMA////BENIGN AYE SKIN TRUNK 08/21/2008 09/02/2012 SEBORRHEIC KERATOSES NOS 08/21/2008 019 SOLAR LENGINES///DYSCHROMIA OTHER 08/21/2008 08/20/2009 Hypoglycemia, unspecified 08/10/20082010 Internal hemorrhoids without mention of complica tion 06/23/2006 Diverticulosis of colon (without mention of hemo rrhage) 06/23/2006 Bundle branch block, unspecified 09/07/2014 documented as of this encounter (statuses as of 03/12/2023) [facility] History of Past illness Narrative* Problem Noted Date Resolved Date Nausea 08/01/2021 08/01/2021 Bloating 08/01/2021 08/01/2021 Duplicated ureter, 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 Orthostatic dizziness 10/04/2019 08/29/2021 Thrombocytopenia 06/20/2019 02/28/2021 Anal bleeding 02/04/2019 10/05/2019 Carotid disease, bilateral 08/30/201509/20 Carotid disease, bilateral 08/30/201502/28 Renal cyst 09/29/2013 10/05/2019 Xerosis cutis 04/15/2013 09/07/2014 Keratosis pilaris 04/15/2013 09/07/2014 Irritant dermatitis 04/15/2013 09/07/2014 Testalgia 03/23/2013 09/07/2014 Frequency of urination 03/23/2013 9 Melanocytic nevi of trunk 04/25/20122014 Surgical Scars 04/25/2012 09/02/2012 Viral warts, unspecified 03/18/2012 012 Atypical Melanocytic Compoun d and Junctional Nevus moles of upper back 02/01/2012 09/02/2012 Actinic Keratosis (Premalignant AK) 02/01/2012 08/30/2015 Irritated//Inflamed Seborrhe ic Keratoses (potentially and otherwise) 02/01/2012 09/02/2012 Cutaneous skin tags 02/01/2012 09/02/2012 Actinic skin damage 02/01/2012 09/02/2012 Solar Lentigines 02/01/2012 09/07/2014 Wilson angiomas 02/01/2012 09/02/2012 Impaired fasting glucose 08/29/2011 020 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 Other physical therapy 01/15/2011 1 First degree hemorrhoids 10/10/2008 020 Benign neoplasm of scalp and skin of neck 200708/20/2009 Neoplasm of uncertain behavior of skin 8 08/20/2009 Inflamed seborrheic keratosis 08/21/2008 Viral warts, unspecified 08/21/2008 009 NEUROFIBROMA////BENIGN AYE SKIN TRUNK 08/21/2008 09/02/2012 SEBORRHEIC KERATOSES NOS 08/21/2008 019 SOLAR LENGINES///DYSCHROMIA OTHER 08/21/2008 08/20/2009 Hypoglycemia, unspecified 08/10/20082010 Internal hemorrhoids without mention of complica tion 06/23/2006 Diverticulosis of colon (without mention of hemo rrhage) 06/23/2006 Bundle branch block, unspecified 09/07/2014 documented as of this encounter (statuses as of 04/01/2023) [facility] History of Past illness Narrative* Problem Noted Date Resolved Date Nausea 08/01/2021 08/01/2021 Bloating 08/01/2021 08/01/2021 Duplicated ureter, 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 Orthostatic dizziness 10/04/2019 08/29/2021 Thrombocytopenia 06/20/2019 02/28/2021 Anal bleeding 02/04/2019 10/05/2019 Carotid disease, bilateral 08/30/201509/20 Carotid disease, bilateral 08/30/201502/28 Renal cyst 09/29/2013 10/05/2019 Xerosis cutis 04/15/2013 09/07/2014 Keratosis pilaris 04/15/2013 09/07/2014 Irritant dermatitis 04/15/2013 09/07/2014 Testalgia 03/23/2013 09/07/2014 Frequency of urination 03/23/2013 9 Melanocytic nevi of trunk 04/25/20122014 Surgical Scars 04/25/2012 09/02/2012 Viral warts, unspecified 03/18/2012 012 Atypical Melanocytic Compoun d and Junctional Nevus moles of upper back 02/01/2012 09/02/2012 Actinic Keratosis (Premalignant AK) 02/01/2012 08/30/2015 Irritated//Inflamed Seborrhe ic Keratoses (potentially and otherwise) 02/01/2012 09/02/2012 Cutaneous skin tags 02/01/2012 09/02/2012 Actinic skin damage 02/01/2012 09/02/2012 Solar Lentigines 02/01/2012 09/07/2014 Wilson angiomas 02/01/2012 09/02/2012 Impaired fasting glucose 08/29/2011 020 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 Other physical therapy 01/15/2011 1 First degree hemorrhoids 10/10/2008 020 Benign neoplasm of scalp and skin of neck 200708/20/2009 Neoplasm of uncertain behavior of skin 8 08/20/2009 Inflamed seborrheic keratosis 08/21/2008 Viral warts, unspecified 08/21/2008 009 NEUROFIBROMA////BENIGN AYE SKIN TRUNK 08/21/2008 09/02/2012 SEBORRHEIC KERATOSES NOS 08/21/2008 019 SOLAR LENGINES///DYSCHROMIA OTHER 08/21/2008 08/20/2009 Hypoglycemia, unspecified 08/10/20082010 Internal hemorrhoids without mention of complica tion 06/23/2006 Diverticulosis of colon (without mention of hemo rrhage) 06/23/2006 Bundle branch block, unspecified 09/07/2014 documented as of this encounter (statuses as of 04/03/2023) [facility] History of Past illness Narrative* Problem Noted Date Diagnosed Date Resolved Date Nausea 08/01/2021 08/01/2021 Bloating 08/01/2021 08/01/2021 Duplicated ureter, 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 Orthostatic dizziness 10/04/20192020 Thrombocytopenia 06/20/2019 02/28/2021 Anal bleeding 02/04/2019 10/05/2019 Carotid disease, bilateral 08/30/2015 1 Carotid disease, bilateral 08/30/2015 0 02/28/2021 Renal cyst 09/29/2013 10/05/2019 Xerosis cutis 04/15/2013 09/07/2014 Keratosis pilaris 04/15/2013 09/07/2014 Irritant dermatitis 04/15/2013 09/07/20 14 Testalgia 03/23/2013 09/07/2014 Frequency of urination 03/23/201304/01 Melanocytic nevi of trunk 04/25/2012 Surgical Scars 04/25/2012 09/02/2012 Viral warts, unspecified 03/18/201209/2012 Atypical Melanocytic Compoun d and Junctional Nevus moles of upper back 02/01/2012 09/02/2012 Actinic Keratosis (Premalignant AK) 02/01/2012 08/30/2015 Irritated//Inflamed Seborrhe ic Keratoses (potentially and otherwise) 02/01/2012 09/02/2012 Cutaneous skin tags 02/01/2012 09/02/20 12 Actinic skin damage 02/01/2012 09/02/20 12 Solar Lentigines 02/01/2012 09/07/2014 Wilson angiomas 02/01/2012 09/02/2012 Impaired fasting glucose 08/29/201101/2020 Cystic disease of kidney 06/29/201109/2012 Overview: Right. Other physical therapy 01/15/201108/29 First degree hemorrhoids 10/10/200801/2020 Benign neoplasm of scalp and skin of neck 09/29/2008 08/20/2009 Neoplasm of uncertain behavior of skin 08/21/2008 08/20/2009 Inflamed seborrheic keratosis 08/21/2008 08/20/2009 Viral warts, unspecified 08/21/2008 NEUROFIBROMA////BENIGN AYE SKIN TRUNK 08/21/2008 09/02/2012 SEBORRHEIC KERATOSES NOS 08/21/2008 SOLAR LENGINES///DYSCHROMIA OTHER 08/21/2008 08/20/2009 Hypoglycemia, unspecified 08/10/2008 Internal hemorrhoids without mention of complication 06/23/2006 Diverticulosis of colon (wit hout mention of hemorrhage) 06/23/2006 Bundle branch block, unspecified 09/07/2014 documented as of this encounter (statuses as of 09/04/2023) [facility] History of Past illness Narrative* Problem Noted Date Diagnosed Date Resolved Date Nausea 08/01/2021 08/01/2021 Bloating 08/01/2021 08/01/2021 Duplicated ureter, 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 Orthostatic dizziness 10/04/20192020 Thrombocytopenia 06/20/2019 02/28/2021 Anal bleeding 02/04/2019 10/05/2019 Carotid disease, bilateral 08/30/2015 1 Carotid disease, bilateral 08/30/2015 0 02/28/2021 Renal cyst 09/29/2013 10/05/2019 Xerosis cutis 04/15/2013 09/07/2014 Keratosis pilaris 04/15/2013 09/07/2014 Irritant dermatitis 04/15/2013 09/07/20 14 Testalgia 03/23/2013 09/07/2014 Frequency of urination 03/23/201304/01 Melanocytic nevi of trunk 04/25/2012 Surgical Scars 04/25/2012 09/02/2012 Viral warts, unspecified 03/18/201209/2012 Atypical Melanocytic Compoun d and Junctional Nevus moles of upper back 02/01/2012 09/02/2012 Actinic Keratosis (Premalignant AK) 02/01/2012 08/30/2015 Irritated//Inflamed Seborrhe ic Keratoses (potentially and otherwise) 02/01/2012 09/02/2012 Cutaneous skin tags 02/01/2012 09/02/20 12 Actinic skin damage 02/01/2012 09/02/20 12 Solar Lentigines 02/01/2012 09/07/2014 Wilson angiomas 02/01/2012 09/02/2012 Impaired fasting glucose 08/29/201101/2020 Cystic disease of kidney 06/29/201109/2012 Overview: Right. Other physical therapy 01/15/201108/29 First degree hemorrhoids 10/10/200801/2020 Benign neoplasm of scalp and skin of neck 09/29/2008 08/20/2009 Neoplasm of uncertain behavior of skin 08/21/2008 08/20/2009 Inflamed seborrheic keratosis 08/21/2008 08/20/2009 Viral warts, unspecified 08/21/2008 NEUROFIBROMA////BENIGN AYE SKIN TRUNK 08/21/2008 09/02/2012 SEBORRHEIC KERATOSES NOS 08/21/2008 SOLAR LENGINES///DYSCHROMIA OTHER 08/21/2008 08/20/2009 Hypoglycemia, unspecified 08/10/2008 Internal hemorrhoids without mention of complication 06/23/2006 Diverticulosis of colon (wit hout mention of hemorrhage) 06/23/2006 Bundle branch block, unspecified 09/07/2014 documented as of this encounter (statuses as of 09/17/2023) [facility] History of Past illness Narrative* Problem Noted Date Diagnosed Date Resolved Date Nausea 08/01/2021 08/01/2021 Bloating 08/01/2021 08/01/2021 Duplicated ureter, 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 Orthostatic dizziness 10/04/20192020 Thrombocytopenia 06/20/2019 02/28/2021 Anal bleeding 02/04/2019 10/05/2019 Carotid disease, bilateral 08/30/2015 1 Carotid disease, bilateral 08/30/2015 0 02/28/2021 Renal cyst 09/29/2013 10/05/2019 Xerosis cutis 04/15/2013 09/07/2014 Keratosis pilaris 04/15/2013 09/07/2014 Irritant dermatitis 04/15/2013 09/07/20 14 Testalgia 03/23/2013 09/07/2014 Frequency of urination 03/23/201304/01 Melanocytic nevi of trunk 04/25/2012 Surgical Scars 04/25/2012 09/02/2012 Viral warts, unspecified 03/18/201209/2012 Atypical Melanocytic Compoun d and Junctional Nevus moles of upper back 02/01/2012 09/02/2012 Actinic Keratosis (Premalignant AK) 02/01/2012 08/30/2015 Irritated//Inflamed Seborrhe ic Keratoses (potentially and otherwise) 02/01/2012 09/02/2012 Cutaneous skin tags 02/01/2012 09/02/20 12 Actinic skin damage 02/01/2012 09/02/20 12 Solar Lentigines 02/01/2012 09/07/2014 Wilson angiomas 02/01/2012 09/02/2012 Impaired fasting glucose 08/29/201101/2020 Cystic disease of kidney 06/29/201109/2012 Overview: Right. Other physical therapy 01/15/201108/29 First degree hemorrhoids 10/10/200801/2020 Benign neoplasm of scalp and skin of neck 09/29/2008 08/20/2009 Neoplasm of uncertain behavior of skin 08/21/2008 08/20/2009 Inflamed seborrheic keratosis 08/21/2008 08/20/2009 Viral warts, unspecified 08/21/2008 NEUROFIBROMA////BENIGN AYE SKIN TRUNK 08/21/2008 09/02/2012 SEBORRHEIC KERATOSES NOS 08/21/2008 SOLAR LENGINES///DYSCHROMIA OTHER 08/21/2008 08/20/2009 Hypoglycemia, unspecified 08/10/2008 Internal hemorrhoids without mention of complication 06/23/2006 Diverticulosis of colon (wit hout mention of hemorrhage) 06/23/2006 Bundle branch block, unspecified 09/07/2014 documented as of this encounter (statuses as of 09/18/2023) [facility] History of Past illness Narrative* Problem Noted Date Diagnosed Date Resolved Date Nausea 08/01/2021 08/01/2021 Bloating 08/01/2021 08/01/2021 Duplicated ureter, 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 Orthostatic dizziness 10/04/20192020 Thrombocytopenia 06/20/2019 02/28/2021 Anal bleeding 02/04/2019 10/05/2019 Carotid disease, bilateral 08/30/2015 1 Carotid disease, bilateral 08/30/2015 0 02/28/2021 Renal cyst 09/29/2013 10/05/2019 Xerosis cutis 04/15/2013 09/07/2014 Keratosis pilaris 04/15/2013 09/07/2014 Irritant dermatitis 04/15/2013 09/07/20 14 Testalgia 03/23/2013 09/07/2014 Frequency of urination 03/23/201304/01 Melanocytic nevi of trunk 04/25/2012 Surgical Scars 04/25/2012 09/02/2012 Viral warts, unspecified 03/18/201209/2012 Atypical Melanocytic Compoun d and Junctional Nevus moles of upper back 02/01/2012 09/02/2012 Actinic Keratosis (Premalignant AK) 02/01/2012 08/30/2015 Irritated//Inflamed Seborrhe ic Keratoses (potentially and otherwise) 02/01/2012 09/02/2012 Cutaneous skin tags 02/01/2012 09/02/20 12 Actinic skin damage 02/01/2012 09/02/20 12 Solar Lentigines 02/01/2012 09/07/2014 Wilson angiomas 02/01/2012 09/02/2012 Impaired fasting glucose 08/29/201101/2020 Cystic disease of kidney 06/29/201109/2012 Overview: Right. Other physical therapy 01/15/201108/29 First degree hemorrhoids 10/10/200801/2020 Benign neoplasm of scalp and skin of neck 09/29/2008 08/20/2009 Neoplasm of uncertain behavior of skin 08/21/2008 08/20/2009 Inflamed seborrheic keratosis 08/21/2008 08/20/2009 Viral warts, unspecified 08/21/2008 NEUROFIBROMA////BENIGN AYE SKIN TRUNK 08/21/2008 09/02/2012 SEBORRHEIC KERATOSES NOS 08/21/2008 SOLAR LENGINES///DYSCHROMIA OTHER 08/21/2008 08/20/2009 Hypoglycemia, unspecified 08/10/2008 Internal hemorrhoids without mention of complication 06/23/2006 Diverticulosis of colon (wit hout mention of hemorrhage) 06/23/2006 Bundle branch block, unspecified 09/07/2014 documented as of this encounter (statuses as of 09/26/2023) [facility] History of Past illness Narrative* Problem Noted Date Diagnosed Date Resolved Date Nausea 08/01/2021 08/01/2021 Bloating 08/01/2021 08/01/2021 Duplicated ureter, 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 Orthostatic dizziness 10/04/20192020 Thrombocytopenia 06/20/2019 02/28/2021 Anal bleeding 02/04/2019 10/05/2019 Carotid disease, bilateral 08/30/2015 1 Carotid disease, bilateral 08/30/2015 0 02/28/2021 Renal cyst 09/29/2013 10/05/2019 Xerosis cutis 04/15/2013 09/07/2014 Keratosis pilaris 04/15/2013 09/07/2014 Irritant dermatitis 04/15/2013 09/07/20 14 Testalgia 03/23/2013 09/07/2014 Frequency of urination 03/23/201304/01 Melanocytic nevi of trunk 04/25/2012 Surgical Scars 04/25/2012 09/02/2012 Viral warts, unspecified 03/18/201209/2012 Atypical Melanocytic Compoun d and Junctional Nevus moles of upper back 02/01/2012 09/02/2012 Actinic Keratosis (Premalignant AK) 02/01/2012 08/30/2015 Irritated//Inflamed Seborrhe ic Keratoses (potentially and otherwise) 02/01/2012 09/02/2012 Cutaneous skin tags 02/01/2012 09/02/20 12 Actinic skin damage 02/01/2012 09/02/20 12 Solar Lentigines 02/01/2012 09/07/2014 Wilson angiomas 02/01/2012 09/02/2012 Impaired fasting glucose 08/29/201101/2020 Cystic disease of kidney 06/29/201109/2012 Overview: Right. Other physical therapy 01/15/201108/29 First degree hemorrhoids 10/10/200801/2020 Benign neoplasm of scalp and skin of neck 09/29/2008 08/20/2009 Neoplasm of uncertain behavior of skin 08/21/2008 08/20/2009 Inflamed seborrheic keratosis 08/21/2008 08/20/2009 Viral warts, unspecified 08/21/2008 NEUROFIBROMA////BENIGN AYE SKIN TRUNK 08/21/2008 09/02/2012 SEBORRHEIC KERATOSES NOS 08/21/2008 SOLAR LENGINES///DYSCHROMIA OTHER 08/21/2008 08/20/2009 Hypoglycemia, unspecified 08/10/2008 Internal hemorrhoids without mention of complication 06/23/2006 Diverticulosis of colon (wit hout mention of hemorrhage) 06/23/2006 Bundle branch block, unspecified 09/07/2014 documented as of this encounter (statuses as of 09/27/2023) [facility] History of Past illness Narrative* Problem Noted Date Diagnosed Date Resolved Date Nausea 08/01/2021 08/01/2021 Bloating 08/01/2021 08/01/2021 Duplicated ureter, 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 Orthostatic dizziness 10/04/20192020 Thrombocytopenia 06/20/2019 02/28/2021 Anal bleeding 02/04/2019 10/05/2019 Carotid disease, bilateral 08/30/2015 1 Carotid disease, bilateral 08/30/2015 0 02/28/2021 Renal cyst 09/29/2013 10/05/2019 Xerosis cutis 04/15/2013 09/07/2014 Keratosis pilaris 04/15/2013 09/07/2014 Irritant dermatitis 04/15/2013 09/07/20 14 Testalgia 03/23/2013 09/07/2014 Frequency of urination 03/23/201304/01 Melanocytic nevi of trunk 04/25/2012 Surgical Scars 04/25/2012 09/02/2012 Viral warts, unspecified 03/18/201209/2012 Atypical Melanocytic Compoun d and Junctional Nevus moles of upper back 02/01/2012 09/02/2012 Actinic Keratosis (Premalignant AK) 02/01/2012 08/30/2015 Irritated//Inflamed Seborrhe ic Keratoses (potentially and otherwise) 02/01/2012 09/02/2012 Cutaneous skin tags 02/01/2012 09/02/20 12 Actinic skin damage 02/01/2012 09/02/20 12 Solar Lentigines 02/01/2012 09/07/2014 Wilson angiomas 02/01/2012 09/02/2012 Impaired fasting glucose 08/29/201101/2020 Cystic disease of kidney 06/29/201109/2012 Overview: Right. Other physical therapy 01/15/201108/29 First degree hemorrhoids 10/10/200801/2020 Benign neoplasm of scalp and skin of neck 09/29/2008 08/20/2009 Neoplasm of uncertain behavior of skin 08/21/2008 08/20/2009 Inflamed seborrheic keratosis 08/21/2008 08/20/2009 Viral warts, unspecified 08/21/2008 NEUROFIBROMA////BENIGN AYE SKIN TRUNK 08/21/2008 09/02/2012 SEBORRHEIC KERATOSES NOS 08/21/2008 SOLAR LENGINES///DYSCHROMIA OTHER 08/21/2008 08/20/2009 Hypoglycemia, unspecified 08/10/2008 Internal hemorrhoids without mention of complication 06/23/2006 Diverticulosis of colon (wit hout mention of hemorrhage) 06/23/2006 Bundle branch block, unspecified 09/07/2014 documented as of this encounter (statuses as of 09/29/2023) [facility] of Past illness Narrative* Problem Noted Date Diagnosed Date Resolved Date Nausea 08/01/2021 08/01/2021 Bloating 08/01/2021 08/01/2021 Duplicated ureter, 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 Orthostatic dizziness 10/04/20192020 Thrombocytopenia 06/20/2019 02/28/2021 Anal bleeding 02/04/2019 10/05/2019 Carotid disease, bilateral 08/30/2015 1 Carotid disease, bilateral 08/30/2015 0 02/28/2021 Renal cyst 09/29/2013 10/05/2019 Xerosis cutis 04/15/2013 09/07/2014 Keratosis pilaris 04/15/2013 09/07/2014 Irritant dermatitis 04/15/2013 09/07/20 14 Testalgia 03/23/2013 09/07/2014 Frequency of urination 03/23/201304/01 Melanocytic nevi of trunk 04/25/2012 Surgical Scars 04/25/2012 09/02/2012 Viral warts, unspecified 03/18/201209/2012 Atypical Melanocytic Compoun d and Junctional Nevus moles of upper back 02/01/2012 09/02/2012 Actinic Keratosis (Premalignant AK) 02/01/2012 08/30/2015 Irritated//Inflamed Seborrhe ic Keratoses (potentially and otherwise) 02/01/2012 09/02/2012 Cutaneous skin tags 02/01/2012 09/02/20 12 Actinic skin damage 02/01/2012 09/02/20 12 Solar Lentigines 02/01/2012 09/07/2014 Wilson angiomas 02/01/2012 09/02/2012 Impaired fasting glucose 08/29/201101/2020 Cystic disease of kidney 06/29/201109/2012 Overview: Right. Other physical therapy 01/15/201108/29 First degree hemorrhoids 10/10/200801/2020 Benign neoplasm of scalp and skin of neck 09/29/2008 08/20/2009 Neoplasm of uncertain behavior of skin 08/21/2008 08/20/2009 Inflamed seborrheic keratosis 08/21/2008 08/20/2009 Viral warts, unspecified 08/21/2008 NEUROFIBROMA////BENIGN AYE SKIN TRUNK 08/21/2008 09/02/2012 SEBORRHEIC KERATOSES NOS 08/21/2008 SOLAR LENGINES///DYSCHROMIA OTHER 08/21/2008 08/20/2009 Hypoglycemia, unspecified 08/10/2008 Internal hemorrhoids without mention of complication 06/23/2006 Diverticulosis of colon (wit hout mention of hemorrhage) 06/23/2006 Bundle branch block, unspecified 09/07/2014 documented as of this encounter (statuses as of 10/05/2023) [facility] of Past illness Narrative* Problem Noted Date Diagnosed Date Resolved Date Nausea 08/01/2021 08/01/2021 Bloating 08/01/2021 08/01/2021 Duplicated ureter, 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 Orthostatic dizziness 10/04/20192020 Thrombocytopenia 06/20/2019 02/28/2021 Anal bleeding 02/04/2019 10/05/2019 Carotid disease, bilateral 08/30/2015 1 Carotid disease, bilateral 08/30/2015 0 02/28/2021 Renal cyst 09/29/2013 10/05/2019 Xerosis cutis 04/15/2013 09/07/2014 Keratosis pilaris 04/15/2013 09/07/2014 Irritant dermatitis 04/15/2013 09/07/20 14 Testalgia 03/23/2013 09/07/2014 Frequency of urination 03/23/201304/01 Melanocytic nevi of trunk 04/25/2012 Surgical Scars 04/25/2012 09/02/2012 Viral warts, unspecified 03/18/201209/2012 Atypical Melanocytic Compoun d and Junctional Nevus moles of upper back 02/01/2012 09/02/2012 Actinic Keratosis (Premalignant AK) 02/01/2012 08/30/2015 Irritated//Inflamed Seborrhe ic Keratoses (potentially and otherwise) 02/01/2012 09/02/2012 Cutaneous skin tags 02/01/2012 09/02/20 12 Actinic skin damage 02/01/2012 09/02/20 12 Solar Lentigines 02/01/2012 09/07/2014 Wilson angiomas 02/01/2012 09/02/2012 Impaired fasting glucose 08/29/201101/2020 Cystic disease of kidney 06/29/201109/2012 Overview: Right. Other physical therapy 01/15/201108/29 First degree hemorrhoids 10/10/200801/2020 Benign neoplasm of scalp and skin of neck 09/29/2008 08/20/2009 Neoplasm of uncertain behavior of skin 08/21/2008 08/20/2009 Inflamed seborrheic keratosis 08/21/2008 08/20/2009 Viral warts, unspecified 08/21/2008 NEUROFIBROMA////BENIGN AYE SKIN TRUNK 08/21/2008 09/02/2012 SEBORRHEIC KERATOSES NOS 08/21/2008 SOLAR LENGINES///DYSCHROMIA OTHER 08/21/2008 08/20/2009 Hypoglycemia, unspecified 08/10/2008 Internal hemorrhoids without mention of complication 06/23/2006 Diverticulosis of colon (wit hout mention of hemorrhage) 06/23/2006 Bundle branch block, unspecified 09/07/2014 documented as of this encounter (statuses as of 11/02/2023) [facility] of Past illness Narrative* Problem Noted Date Diagnosed Date Resolved Date Nausea 08/01/2021 08/01/2021 Bloating 08/01/2021 08/01/2021 Duplicated ureter, 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 Orthostatic dizziness 10/04/20192020 Thrombocytopenia 06/20/2019 02/28/2021 Anal bleeding 02/04/2019 10/05/2019 Carotid disease, bilateral 08/30/2015 1 Carotid disease, bilateral 08/30/2015 0 02/28/2021 Renal cyst 09/29/2013 10/05/2019 Xerosis cutis 04/15/2013 09/07/2014 Keratosis pilaris 04/15/2013 09/07/2014 Irritant dermatitis 04/15/2013 09/07/20 14 Testalgia 03/23/2013 09/07/2014 Frequency of urination 03/23/201304/01 Melanocytic nevi of trunk 04/25/2012 Surgical Scars 04/25/2012 09/02/2012 Viral warts, unspecified 03/18/201209/2012 Atypical Melanocytic Compoun d and Junctional Nevus moles of upper back 02/01/2012 09/02/2012 Actinic Keratosis (Premalignant AK) 02/01/2012 08/30/2015 Irritated//Inflamed Seborrhe ic Keratoses (potentially and otherwise) 02/01/2012 09/02/2012 Cutaneous skin tags 02/01/2012 09/02/20 12 Actinic skin damage 02/01/2012 09/02/20 12 Solar Lentigines 02/01/2012 09/07/2014 Wilson angiomas 02/01/2012 09/02/2012 Impaired fasting glucose 08/29/201101/2020 Cystic disease of kidney 06/29/201109/2012 Overview: Right. Other physical therapy 01/15/201108/29 First degree hemorrhoids 10/10/200801/2020 Benign neoplasm of scalp and skin of neck 09/29/2008 08/20/2009 Neoplasm of uncertain behavior of skin 08/21/2008 08/20/2009 Inflamed seborrheic keratosis 08/21/2008 08/20/2009 Viral warts, unspecified 08/21/2008 NEUROFIBROMA////BENIGN AYE SKIN TRUNK 08/21/2008 09/02/2012 SEBORRHEIC KERATOSES NOS 08/21/2008 SOLAR LENGINES///DYSCHROMIA OTHER 08/21/2008 08/20/2009 Hypoglycemia, unspecified 08/10/2008 Internal hemorrhoids without mention of complication 06/23/2006 Diverticulosis of colon (wit hout mention of hemorrhage) 06/23/2006 Bundle branch block, unspecified 09/07/2014 documented as of this encounter (statuses as of 12/29/2023) [facility]09-09-2021 History of Past illness Narrative* Problem Noted Date Diagnosed Date Resolved Date Nausea 08/01/2021 08/01/2021 Bloating 08/01/2021 08/01/2021 Duplicated ureter, 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 Orthostatic dizziness 10/04/20192020 Thrombocytopenia 06/20/2019 02/28/2021 Anal bleeding 02/04/2019 10/05/2019 Carotid disease, bilateral 08/30/2015 1 Carotid disease, bilateral 08/30/2015 0 02/28/2021 Renal cyst 09/29/2013 10/05/2019 Xerosis cutis 04/15/2013 09/07/2014 Keratosis pilaris 04/15/2013 09/07/2014 Irritant dermatitis 04/15/2013 09/07/20 14 Testalgia 03/23/2013 09/07/2014 Frequency of urination 03/23/201304/01 Melanocytic nevi of trunk 04/25/2012 Surgical Scars 04/25/2012 09/02/2012 Viral warts, unspecified 03/18/201209/2012 Atypical Melanocytic Compoun d and Junctional Nevus moles of upper back 02/01/2012 09/02/2012 Actinic Keratosis (Premalignant AK) 02/01/2012 08/30/2015 Irritated//Inflamed Seborrhe ic Keratoses (potentially and otherwise) 02/01/2012 09/02/2012 Cutaneous skin tags 02/01/2012 09/02/20 12 Actinic skin damage 02/01/2012 09/02/20 12 Solar Lentigines 02/01/2012 09/07/2014 Wilson angiomas 02/01/2012 09/02/2012 Impaired fasting glucose 08/29/201101/2020 Cystic disease of kidney 06/29/201109/2012 Overview: Right. Other physical therapy 01/15/201108/29 First degree hemorrhoids 10/10/200801/2020 Benign neoplasm of scalp and skin of neck 09/29/2008 08/20/2009 Neoplasm of uncertain behavior of skin 08/21/2008 08/20/2009 Inflamed seborrheic keratosis 08/21/2008 08/20/2009 Viral warts, unspecified 08/21/2008 NEUROFIBROMA////BENIGN AYE SKIN TRUNK 08/21/2008 09/02/2012 SEBORRHEIC KERATOSES NOS 08/21/2008 SOLAR LENGINES///DYSCHROMIA OTHER 08/21/2008 08/20/2009 Hypoglycemia, unspecified 08/10/2008 Internal hemorrhoids without mention of complication 06/23/2006 Diverticulosis of colon (wit hout mention of hemorrhage) 06/23/2006 Bundle branch block, unspecified 09/07/2014 documented as of this encounter (statuses as of 01/04/2024) [facility]09-02-2021 History of Present illness Narrative* Melanie Burciaga MD - 07/25/2021 10:22 AM EDT Physicians: Alonso Wheat MD (Family) Today's Chief Complaint: Chief Complaint Patient presents with Follow-up HISTORY: Subjective I had the pleasure of seeing Mr. Millan today at the [facility] in [place]. Patient is a pleasant 80-year-old male with a history of reported hypertrophic cardiomyopathy with hypertension, hyperlipidemia, osteoarthritis and reflux he is here for cardiac follow up and pre procedure assessment prior to an EGD. carries a diagnosis of hypertrophic cardiomyopathy, he had carried this diagnosis for many years. He has never had any genetic testing, no specific familial history elicited of hypertrophiccardiomyopathy. Patient has no biological children. Functionally limited due to back issues. He follows with pain management for injections. Right hip injured. He can walk stairs without chest pain or shortness of breath. He denies any orthopnea. No syncope or presyncope. He is also here today for preoperative assessment prior to an EGD procedure. Patient had a left heart catheterization in 2004 that was unremarkable. He had a tilt table test [id number] that was positive for postural orthostasis, and subsequent EP study that showed normal intracardiac conduction this was in the face of syncope with a right bundle branch block on EKG. Patient had been followed by cardiology on a regular basis and had frequent stress echocardiograms as well as Holter monitors. Exercise stress echocardiography performed last year on 08/19/2018 revealed reduced exercise capacity, no resting left ventricular outflow tract obstruction, normal blood pressure response to exercise, and no significant exercise-induced arrhythmias were detected. Patient did not reach target heart r ate on his last several stress echoes. He stopped due to fatigue. Left ventricular septal wall thickness measured on 2D echo at 1.28 cm, posterior wall 1.25 cm no LVOT obstruction has been reported. And only trivial mitral regurgitation and no RAMÍREZ. 24-hour Holter monitor on 08/26/2018 revealed rare supraventricular premature complexes and a singleventricular premature complex but no sustained ventricular tachycardia was detected. At our last visit we discussed the pathophysiology of hypertrophic cardiomyopathy and I had recommended a cardiac MRI. Patient underwent cardiac MRI 11/30/2020. Maximal septal wall thickness was 2 cm. LVEF 76%. He had mild mid myocardial scar in the basal and mid inferior septal wall. Normal RV size and function. Mild chordal RAMÍREZ with no significant LVOT velocity. Normal T1 mapping. Impression/Plan: History of hypertrophic cardiomyopathy: No genetic testing has been performed, no family history. Cardiac MRI obtained 11/2020 consistent with hypertrophic cardiomyopathy. Septal wall thickness of 2 cm. Minimal mid myocardial scar. Mild chordal systolic anterior motion of the mitral valve. No significant MR. No significant increase in LVOT velocity. Patient has no biological children, therefore genetic testing is less concerning. Syncope in the past appears secondary to postural orthostasis with a positive tilt table test patient has had no highrisk arrhythmic features. Patient is self-limited and his exercise due to significant back and arthritic problems. Patient has no demonstrable heart failure symptomatology. He meets no criteria for ICD implantation. Hyperlipidemia with a history of statin intolerance. Lipids managed by primary care provider, tolerating lovastatin without issue. No evidence of coronary artery disease based on left heart catheterization in 2004. No recent ischemic evaluation. Exercise stress echo was completed in 2015 as well [id number] failed to reach target heart rate, and would be indeterminant for ischemia due to such finding. History of positive tilt table test in 2002: EP study performed at the same time was unremarkable. Patient has a longstanding history of right bundle branch block on EKG. Intermittent lightheadedness, intolerance of Lasix due to symptomatic hypotension. Recommended prescription compression stockings for mild lower extremity edema. Hypertension: Blood pressure appears controlled on present therapy. FOR THE RECORD: Diagnostic Studies/Labs personally reviewed: ECG personally reviewed from today with sinus rhythm, right bundle branch block which is old. Cardiac MRI 11/30/2020. Maximal septal wall thickness was 2 cm. LVEF 76%. He had mild mid myocardial scar in the basal and mid inferior septal wall. Normal RV size and function. Mild chordal RAMÍREZ with no significant LVOT velocity. Normal T1 mapping. Allergies: is allergic to hydrocodone-acetaminophen, tramadol, atorvastatin calcium, ezetimibe, simvastatin, and [id number] reductase inhibitors. Medications: (list name, dose, frequency, and last dose taken): Current Outpatient Medications: acetaminophen (TYLENOL) 160 mg/5 mL (5 mL) Soln, Take 81 mg by mouth as needed ., Disp: , Rfl: amLODIPine (NORVASC) 5 MG tablet, Take 5 mg by mouth every morning PATIENT TO INCREASE NORVASC TO 5MG IN AM AND 2.5 MG IN PM ., Disp: , Rfl: aspirin 81 MG EC tablet, Take 81 mg by mouth daily ., Disp: , Rfl: atenolol (TENORMIN) 50 MG tablet, Take 1 (one) tablet (50 mg total) by mouth 2 (two) times a day., Disp: 180 tablet, Rfl: 3 calcium carbonate-vitamin D3 (CALCIUM 500 WITH D) 500 mg(1,250mg) -400 unit Tab, Take 500 mg by mouth daily, Disp: , Rfl: lovastatin (MEVACOR) 40 MG tablet, Take 2 tablets by mouth nightly ., Disp: , Rfl: omeprazole (PRILOSEC) 40 MG capsule, Take 1 capsule by mouth 2 (two) times a day., Disp: , Rfl: quinapriL (ACCUPRIL) 40 MG tablet, Take 1 (one) tablet (40 mg total) by mouth daily ., Disp: 90 tablet, Rfl: 3 meloxicam (MOBIC) 7.5 MG tablet, TAKE 1 TABLET BY MOUTH ONCE DAILY FOR 30 DAYS, Disp: , Rfl: 2 Past Medical History: Diagnosis Date Cardiomyopathy (HCC) GERD (gastroesophageal reflux disease) Hyperlipidemia Hypertension Hypertrophic cardiomyopathy (HCC) Osteoarthrosis Prostate cancer (HCC) Renal cyst 2012 Past Surgical History: Procedure Laterality Date CARDIAC CATHETERIZATION 12/19/2004 EF 75%, Valve functions within normal limits CATARACT EXT/ECCE Bilateral COLONOSCOPY [facility] HEMORRHOIDECTOMY STAPLED HEMORRHOIDOPEXY (PPH) TUMOR REMOVAL Middle of back Social History: Patient reports that he has never smoked. He has never used smokeless tobacco. He reports that he does not drink alcohol and does not use drugs. Family History: family history includes Heart attack in his brother. REVIEW OF SYSTEMS Review of Systems Constitutional: Negative. HENT: Negative. Eyes: Negative. Respiratory: Negative. Endocrine: Negative. Hematologic/Lymphatic: Does not bruise/bleed easily. Skin: Negative. Musculoskeletal: Positive for arthritis and back pain. Gastrointestinal: Negative for abdominal pain. Genitourinary: Negative for dysuria and hematuria. Neurological: Positive for light-headedness. Psychiatric/Behavioral: Negative. PHYSICAL EXAM General appearance: Patient appears no apparent distress Blood pressure (!) 154/80, pulse 65, height 5' 9, weight 98.4 kg (217 lb), SpO2 98 %. Wt Readings from Last 3 Encounters: 07/25/21 98.4 kg (217 lb) 11/30/20 91.2 kg (201 lb) 10/11/20 98.9 kg (218 lb) Body mass index is 32.05 kg/m . Physical Exam Constitutional: Appearance: He is well-developed. HENT: Head: Normocephalic and atraumatic. Eyes: Pupils: Pupils are equal, round, and reactive to light. Neck: Vascular: No JVD. Cardiovascular: Rate and Rhythm: Normal rate and regular rhythm. Pulses: Radial pulses are 2+ on the right side and 2+ on the left side. Heart sounds: Normal heart sounds. No murmur heard. No friction rub. No gallop. Pulmonary: Effort: Pulmonary effort is normal. Breath sounds: Normal breath sounds. No wheezing or rales. Abdominal: General: There is no distension. Palpations: Abdomen is soft. Tenderness: There is no abdominal tenderness. Musculoskeletal: Comments: Trace pitting pretibial edema Skin: General: Skin is warm and dry. Neurological: Mental Status: He is alert and oriented to person, place, and time. documented in this [id number] Instructions* Patient Instructions* Fatmata Monroe RN - 07/25/2021 9:34 AM EDT You can reach Dr Burciaga's nurse Kwan at [phone]. Please leave a message if unable to reach. Messages are checked regularly and your call will be returned. When in need for refills please call the above number. Please relay your name, date and phonenumber. Please include medication name, dose, pharmacy name and location of pharmacy. Be sure to specify 30-day or 90-day supply requested. Please check with your pharmacy within 24-48 hours of request for your refill. You must follow up as directed to continue current refills. Regarding your follow up office visit: The return date listed below is an approximate date of when your next office visit will be. We will call you a month before that date to schedule your office visit. If you have not heard from us by the date listed below please call the office at [phone] and ask to speak to the schedulers to make an appointment. If you made an -appointment prior to leaving the office today disregard this message. If you need to cancel or reschedule your office visit please call [phone]. If you need to cancel it must be 24 hours prior to that appt. Thank you. [facility] Diagnosis Preop cardiovascular exam- Primary Pre-operative cardiovascular examination documented in this encounter [facility] note* Diagnosis Hypertrophic cardiomyopathy (HCC)- Primary Other primary cardiomyopathies Preop cardiovascular exam Pre-operative cardiovascular examination documented in this encounter [facility] note* Diagnosis ILD (interstitial lung disease) (HCC)- Primary Postinflammatory pulmonary fibrosis documented in this encounter [facility] note* Diagnosis Benign prostatic hyperplasia with incomplete bladder emptying- Primary Controlled type 2 diabetes mellitus without complication, without long-term current use of insulin (HCC) Essential hypertension, benign Edema of left lower leg documented in this encounter [facility] note* Diagnosis Constipation, unspecified constipation type- Primary Bloating Flatulence, eructation, and gas pain Flatulence Flatulence, eructation, and gas pain Early satiety documented in this encounter [facility] note* Diagnosis Bloating- Primary Flatulence, eructation, and gas pain Weight loss Loss of weight Abdominal distension (gaseous) Flatulence, eructation, and gas pain Generalized abdominal pain Abdominal pain, generalized documented in this encounter [facility] note* Diagnosis Hypertrophic non-obstructive cardiomyopathy (HCC) Other primary cardiomyopathies Essential hypertension Unspecified essential hypertension Mixed hyperlipidemia documented in this encounter [facility] note* Diagnosis Bloating Flatulence, eructation, and gas pain Weight loss Loss of weight Abdominal distension (gaseous) Flatulence, eructation, and gas pain Generalized abdominal pain Abdominal pain, generalized documented in this encounter [facility] noteNo assessment information availableWCleveland Clinic Foundation Work Phone: Evaluation note* Diagnosis Essential hypertension- Primary Unspecified essential hypertension Hypertrophic non-obstructive cardiomyopathy (HCC) Other primary cardiomyopathies documented in this encounter [facility] note* Diagnosis Benign prostatic hyperplasia with incomplete bladder emptying documented in this encounter [facility] note* Diagnosis Need for influenza vaccination- Primary Need for prophylactic vaccination and inoculation against influenza documented in this encounter [facility] note* Diagnosis Need for COVID-19 vaccine- Primary documented in this encounter [facility] note* Diagnosis Need for vaccination- Primary Need for prophylactic vaccination and inoculation against unspecified single disease documented in this encounter [facility] note* Diagnosis Medicare annual wellness visit, subsequent- Primary Routine general medical examination at a [facility] facility Controlled type 2 diabetes mellitus without complication, without long-term current use of insulin (HCC) Benign prostatic hyperplasia with incomplete bladder emptying documented in this encounter [facility] note* Diagnosis Radiotherapy follow-up- Primary Radiotherapy follow-up examination Prostate cancer (HCC) Malignant neoplasm of prostate documented in this encounter [facility] note* Diagnosis ILD (interstitial lung disease) (HCC) Postinflammatory pulmonary fibrosis [facility]* Diagnosis ILD (interstitial lung disease) (HCC) Postinflammatory pulmonary fibrosis documented in this encounter [facility] note* Diagnosis ILD (interstitial lung disease) (HCC) Postinflammatory pulmonary fibrosis documented in this encounter [facility] note* Diagnosis ILD (interstitial lung disease) (HCC)- Primary Postinflammatory pulmonary fibrosis Abnormal PFT Nonspecific abnormal results of pulmonary system function study documented in this encounter [facility] note* Diagnosis Sinobronchitis- Primary Unspecified sinusitis (chronic) ILD (interstitial lung disease) (HCC) Postinflammatory pulmonary fibrosis documented in this encounter [facility] note* Diagnosis Esophageal reflux documented in this encounter [facility] note* Diagnosis Primary hypertension- Primary Unspecified essential hypertension 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 Dizziness Dizziness and giddiness [facility]* Diagnosis Atypical chest pain- Primary Other chest pain ILD (interstitial lung disease) (HCC) Postinflammatory pulmonary fibrosis Controlled type 2 diabetes mellitus without complication, without long-term current use of insulin (HCC) Essential hypertension, benign Hypertrophic cardiomyopathy (HCC) Other hypertrophic cardiomyopathy [facility]* Diagnosis Interstitial pulmonary disease (HCC)- Primary Postinflammatory pulmonary fibrosis Wheezing Hemoptysis Hemoptysis, unspecified [facility]* Diagnosis Controlled type 2 diabetes mellitus without complication, without long-term current use of insulin (HCC) [facility]* Diagnosis 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 Right bundle branch block and left anterior fascicular block documented in this encounter [facility] note* Diagnosis Hypertrophic cardiomyopathy (HCC) Other primary cardiomyopathies [facility]* Diagnosis Radiotherapy follow-up- Primary Radiotherapy follow-up examination Prostate cancer (HCC) Malignant neoplasm of prostate [facility]* Diagnosis Interstitial pulmonary disease (HCC) Postinflammatory pulmonary fibrosis [facility]* Diagnosis Interstitial pulmonary disease (HCC) Postinflammatory pulmonary fibrosis [facility]* Diagnosis Interstitial pulmonary disease (HCC) Postinflammatory pulmonary fibrosis [facility]* Diagnosis Wheezing- Primary ILD (interstitial lung disease) (HCC) 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) Other hypertrophic cardiomyopathy [facility]* Diagnosis Esophageal reflux [facility]* Diagnosis Hypertrophic cardiomyopathy (HCC)- Primary Other primary cardiomyopathies Edema, unspecified type Local edema Edema Hypertrophic cardiomyopathy (HCC) Other primary cardiomyopathies Edema, unspecified type Local edema Edema [facility] Diagnosis Controlled type 2 diabetes mellitus without complication, without long-term current use of insulin (HCC)- Primary Essential hypertension, benign Hyperlipidemia, unspecified hyperlipidemia type Obesity, Class I, BMI 30-34.9 Obesity, unspecified [facility] Diagnosis Prostate cancer (HCC)- Primary Malignant neoplasm of prostate [facility] Diagnosis ILD (interstitial lung disease) (HCC) Postinflammatory pulmonary fibrosis [facility] Diagnosis Bronchiectasis without complication (HCC)- Primary Bronchiectasis without acute exacerbation ILD (interstitial lung disease) (HCC) Postinflammatory pulmonary fibrosis Small airways disease Other diseases of lung, not elsewhere classified [facility] Diagnosis Controlled type 2 diabetes mellitus without complication, without long-term current use of insulin (HCC) [facility] Diagnosis Encounter for immunization Need for other specified prophylactic vaccination against single bacterial disease [facility] Diagnosis Atypical chest pain Other chest pain [facility] Diagnosis Sinobronchitis Unspecified sinusitis (chronic) [facility]* Diagnosis Bronchitis- Primary Bronchitis, not specified as acute or chronic ILD (interstitial lung disease) (HCC) Postinflammatory pulmonary fibrosis [facility]* Diagnosis Controlled type 2 diabetes mellitus without complication, without long-term current use of insulin (HCC) [facility]* Diagnosis Medicare annual wellness visit, subsequent- Primary Routine general medical examination at a health care facility Screening for depression Encounter for screening examination for other mental health and behavioral disorders Hypertrophic cardiomyopathy (HCC) Other hypertrophic cardiomyopathy Essential hypertension, benign Controlled type 2 diabetes mellitus without complication, without long-term current use of insulin (HCC) Gross hematuria [facility]* Diagnosis ILD (interstitial lung disease) (HCC) Postinflammatory pulmonary fibrosis [facility] Diagnosis Hypertrophic non-obstructive cardiomyopathy (HCC)- Primary Other primary cardiomyopathies 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 Chest pain with low risk for cardiac etiology Essential hypertension Unspecified essential hypertension Orthostatic dizziness Carotid stenosis, bilateral Occlusion and stenosis of carotid artery without mention of cerebral infarction Hyperlipidemia Other and unspecified hyperlipidemia Hypertrophic non-obstructive cardiomyopathy (HCC) Other primary cardiomyopathies Essential hypertension Unspecified essential hypertension Mixed hyperlipidemia Primary hypertension- Primary Unspecified essential hypertension Hypertrophic cardiomyopathy (HCC) Other primary cardiomyopathies [facility]* Diagnosis Hypertrophic non-obstructive cardiomyopathy (HCC)- Primary Other primary cardiomyopathies 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 Chest pain with low risk for cardiac etiology Essential hypertension Unspecified essential hypertension Orthostatic dizziness Carotid stenosis, bilateral Occlusion and stenosis of carotid artery without mention of cerebral infarction Hyperlipidemia Other and unspecified hyperlipidemia Hypertrophic non-obstructive cardiomyopathy (HCC) Other primary cardiomyopathies Essential hypertension Unspecified essential hypertension Mixed hyperlipidemia Primary hypertension- Primary Unspecified essential hypertension Hypertrophic cardiomyopathy (HCC) Other primary cardiomyopathies [facility]* Diagnosis Hypertrophic non-obstructive cardiomyopathy (HCC)- Primary Other primary cardiomyopathies 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 Chest pain with low risk for cardiac etiology Essential hypertension Unspecified essential hypertension Orthostatic dizziness Carotid stenosis, bilateral Occlusion and stenosis of carotid artery without mention of cerebral infarction Hyperlipidemia Other and unspecified hyperlipidemia Hypertrophic non-obstructive cardiomyopathy (HCC) Other primary cardiomyopathies Essential hypertension Unspecified essential hypertension Mixed hyperlipidemia Primary hypertension- Primary Unspecified essential hypertension Hypertrophic cardiomyopathy (HCC) Other primary cardiomyopathies [facility] Diagnosis ILD (interstitial lung disease) (HCC)- Primary Postinflammatory pulmonary fibrosis Bronchiectasis without complication (HCC) Bronchiectasis without acute exacerbation [facility] Diagnosis Esophageal reflux documented in this encounter [facility] note* Diagnosis Light headedness- Primary Dizziness and giddiness Hypertrophic cardiomyopathy (HCC) Other hypertrophic cardiomyopathy Essential hypertension, benign Hyperlipidemia, unspecified hyperlipidemia type Controlled type 2 diabetes mellitus without complication, without long-term current use of insulin (HCC) ILD (interstitial lung disease) (HCC) Postinflammatory pulmonary fibrosis History of prostate cancer Personal history of malignant neoplasm of prostate documented in this encounter [facility] note* Diagnosis Prostate cancer (HCC)- Primary Malignant neoplasm of prostate documented in this encounter [facility] note* Diagnosis Hypertrophic non-obstructive cardiomyopathy (HCC)- Primary Other primary cardiomyopathies 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 Chest pain with low risk for cardiac etiology Essential hypertension Unspecified essential hypertension Orthostatic dizziness Carotid stenosis, bilateral Occlusion and stenosis of carotid artery without mention of cerebral infarction Hyperlipidemia Other and unspecified hyperlipidemia Hypertrophic non-obstructive cardiomyopathy (HCC) Other primary cardiomyopathies Essential hypertension Unspecified essential hypertension Mixed hyperlipidemia Hypertrophic cardiomyopathy (HCC)- Primary Other primary cardiomyopathies Primary hypertension Unspecified essential hypertension [facility] Diagnosis ILD (interstitial lung disease) (HCC)- Primary Postinflammatory pulmonary fibrosis Bronchiectasis without complication (HCC) Bronchiectasis without acute exacerbation [facility] Mr. Millan arrives to outpatient PT with s/s consistent with c/o LBP with radicular symptoms. Pt pre sents with the following impairments: weakness of core and BLE, tightness of lumbopelvic region, L anterior innominate rotation, decreased lumbar mobility. These impairments contribute to difficulty in activity limitations and participation restrictions including standing >10 mins, ambulating, cooking. The pt will benefit from skilled PT services 2x/week for 4 weeks to address the above statedimpairments and functional limitations to maximize participation and ease in household and social related activities. The pt has a good prognosis when considering positive factors including motivation and knowledge of diagnosis with barriers such as chronicity of symptoms. The pt verbalized understanding and agreement to goals and POC. Thank you for this referral and please call [phone] withany questions or concerns. * Clinical Presentation: Stable and/or uncomplicated characteristics. * Level of Complexity: low * Problem List: activity limitations, ADLs/IADLs/self care skills, decreased functional level, decreased knowledge of HEP, flexibility, pain, participation restrictions, range of motion/joint mobility and strength. [facility] Work Phone: History of Present illness NarrativePatient identified by name and date of . MET preformed due to pelvic malalignment, that responded well. He presented with palpable tension in QL hip flexors and IT band that responded well to STW. Reviewed HEP due to patient request he required verbal and tactile cues to preform correctly. [facility] Work Phone: History of Present illness Narrative* Patient identified by name and * Patient tolerated treatment with mild difficulty. Patient soren'g weakness and increased tightness in QL and hamstrings. Patient usmano'g increased fatigue during treatment requiring rest breaks in between reps. Patient reports feeling looser at end of treatment. [facility] Work Phone: History of Present illness NarrativePatient identified by name and date of . Patient presented with increased pain this date, added/changed exercises to supine due to pain. He presented with pelvic malalignment that responded wellto STW and Leg pull. Reviewed sleeping positions for reduction of Sx when he awakes, he verbalized good understanding. Added SKC and DKC and reviewed for HEP he demonstrated decreased LE Sx after preforming. WIll hold HS stretch until patient presets with pelvic alignment consistently. [facility] [employer] Work Phone: History of Present illness NarrativeMET correction completed again d/t misalignment. Tightness with piriformis stretches. Added supine hip flexor stretch d/t tightness. Instructed on proper cane use on the R and observed patient to make sure technique was correct. [facility] [employer] Work Phone: reason for referral (narrative)* Outpatient Procedure (Routine) - Pending Review Specialty Diagnoses / Procedures Referred By Ping loyd Referred To [facility] Diagnoses ILD (interstitial lung disease) (HCC) Procedures LUNG DIFFUSION CAPACITY (DLCO) DIFFUSING CAPACITY Svetlana Jaeger MD [address] [place] [address] [facility] [address] [place] [id number] Referral ID Status Reason Start Date Expiration Date Visits Requested Visits Authorized [id number] Pending Review Auto-Generat ed Referral 03/03/2022 04/02/2023 1 1 * Outpatient Procedure (Routine) - Pending Review Specialty Diagnoses / Procedures Referred By Contac t Referred To Contact [facility] Diagnoses ILD (interstitial lung disease) (HCC) Procedures LUNG VOLUMES Svetlana Jaeger MD [address] [place] [address] [facility] [address] [place] [id number] Referral ID Status Reason Start Date Expiration Date Visits Requested Visits Authorized [id number] Pending Review Auto-Generat ed Referral 03/03/2022 04/02/2023 1 1 * Outpatient Procedure (Routine) - Pending Review Specialty Diagnoses / Procedures Referred By Contac t Referred To Contact [facility] Diagnoses ILD (interstitial lung disease) (HCC) Procedures SPIROMETRY WITH DILATOR IF OBSTRUCTED BRNCDILAT RSPSE SPMTRY PRE&POST-BRNCDILAT ADMN Svetlana Jageer MD [address] [place] [address] [facility] [address] [place] [address] Referral ID Status Reason Start Date Expiration Date Visits Requested Visits Authorized [id number] Pending Review Auto-Generat ed Referral 03/03/2022 04/02/2023 1 1 [facility] for referral (narrative)* Diagnostic Procedure Only (Routine) - Closed Specialty Diagnoses / Procedures Referred By Contac t Referred To Contact XR IMAGING Diagnoses Constipation, unspecified constipation type Bloating Flatulence Early satiety Procedures XR ABDOMEN 1V SUPINE RADIOLOGIC EXAM ABDOMEN 1 VIEW Beverly Bernabe, [employer] [address] [place] [address] [facility] Referral ID Status Reason Start Date Expiration Date V isits Requested Visits Authorized [id number] Closed Auto-Generate d Referral 03/10/2022 04/09/2023 1 1 [facility] for referral (narrative)* Diagnostic Procedure Only (Routine) - Closed Specialty Diagnoses / Procedures Referred By Contac t Referred To Contact XR IMAGING Diagnoses Atypical chest pain Procedures XR RIBS/CHEST 3V AP RIB/OBLS/CXR RIGHT RADEX RIBS UNI W/POSTEROANT CH MINIMUM 3 VIEWS Alonso Wheat MD [address] [place] [address] [facility] Referral ID Status Reason Start Date Expiration Date V isits Requested Visits Authorized [id number] Closed Auto-Generate d Referral 03/11/2023 04/09/2024 1 1 [facility] for referral (narrative)* Diagnostic Procedure Only (Routine) - Closed Specialty Diagnoses / Procedures Referred By Ping loyd Referred To Contact XR IMAGING Diagnoses Atypical chest pain Procedures XR RIBS/CHEST 3V AP RIB/OBLS/CXR RIGHT RADEX RIBS UNI W/POSTEROANT CH MINIMUM 3 VIEWS Alonso Wheat MD [address] [place], [place] [id number] [place] [address] Referral ID Status Reason Start Date Expiration Date V isits Requested Visits Authorized [id number] Closed Auto-Generate d Referral 03/11/2023 04/09/2024 1 1 [facility] for referral (narrative)No reason for referral information [facility] Work [facility]: Reason for visit Narrative* Initial Evaluation . M54.9. * Referred by: Renetta Marques [facility] Work Phone: reason for visit Narrative* Diagnostic Procedure Only (Routine) - Closed Specialty Diagnoses / Procedures Referred By Ping loyd Referred To Contact XR IMAGING Diagnoses Atypical chest pain Procedures XR RIBS/CHEST 3V AP RIB/OBLS/CXR RIGHT RADEX RIBS UNI W/POSTEROANT CH MINIMUM [place] [address] [place] [id number] [place] [address] Referral ID Status Reason Start Date Expiration Date V isits Requested Visits Authorized [id number] Closed Auto-Generate d Referral 03/11/2023 04/09/2024 1 1 [facility] Instructions Name Dates Details Instructions not documented Name Dates Details Instructions not documented Assessments Diagnosis Essential hypertension - Neela patterson Unspecified essential hypertension Hypertrophic cardiomyopathy (HCC) Other primary cardiomyopathies Orthostatic dizziness Mixed hyperlipidemia 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 Diagnosis Essential hypertension - Neela patterson Unspecified essential hypertension Hypertrophic cardiomyopathy (HCC) Other primary cardiomyopathies Mixed hyperlipidemia 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 Orthostatic dizziness Diagnosis Hypertrophic cardiomyopathy (HCC) Other primary cardiomyopathies Diagnosis Low back pain, unspecified back pain laterality, unspecified chronicity, with sciatica presence unspecified Lumbar radiculopathy Thoracic or lumbosacral neuritis or radiculitis, unspecified Low back pain due to bilateral sciatica Diagnosis Low back pain due to bilateral sciatica Diagnosis Low back pain due to bilateral sciatica Diagnosis Low back pain due to bilateral sciatica Diagnosis Low back pain due to bilateral sciatica Diagnosis Low back pain due to bilateral sciatica Diagnosis Low back pain due to bilateral sciatica- Primary Diagnosis Low back pain due to bilateral sciatica- Primary Diagnosis Low back pain due to bilateral sciatica- Primary Diagnosis Hypertrophic cardiomyopathy (HCC)- Primary Other primary cardiomyopathies 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 Orthostatic dizziness Essential hypertension Unspecified essential hypertension Other ill-defined heart diseases 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) Diagnosis Hypertrophic cardiomyopathy (HCC)- Primary Other primary cardiomyopathies Hypertension, unspecified type Diagnosis Hypertrophic cardiomyopathy (HCC) Other primary cardiomyopathies Diagnosis Low back pain due to bilateral sciatica- Primary Diagnosis Palpitations Diagnosis Low back pain due to bilateral sciatica Diagnosis Low back pain due to bilateral sciatica Diagnosis Low back pain due to bilateral sciatica Diagnosis Low back pain due to bilateral sciatica- Primary Diagnosis Low back pain due to bilateral sciatica Diagnosis Low back pain due to bilateral sciatica Summary Purpose Family History No Family History Records Found Relationship Condition Age at Onset Recorded Date/T bhavana Unknown Family History?Cancer Unknown July 16, 2020 1:41pm Family History?Cancer Unknown July 16, 2020 1:41pm Advance Directives No Advanced Directives Records FoundDocuments on File Type Date Recorded Patient Nail Expert Expl anation Advance Directives and Living Will Documents on File Type Date Recorded Patient Nail Expert Expl anation Advance Directives and Living Will Documents on File Type Date Recorded Patient Nail Expert Expl anation Advance Directives and Livin g Will 11/30/2020 1:52 PM Documents on File Type Date Recorded Patient Nail Expert Expl anation Advance Directives and Livin g Will 11/30/2020 1:52 PM Documents on File Type Date Recorded Patient Nail Expert Expl anation Advance Directives and Livin g Will 01/17/2021 1:52 PM Documents on File Type Date Recorded Patient Nail Expert Expl anation Advance Directives and Livin g Will 01/17/2021 1:52 PM Documents on File Type Date Recorded Patient Nail Expert Expl anation Advance Directive(s) 08/01/2021 7:49 AM Advance Directive(s) 07/16/2021 8:35 AM Advance Directive(s) 01/24/2019 7:25 AM Documents on File Type Date Recorded Patient Nail Expert Expl anation Advance Directive(s) 08/01/2021 7:49 AM Advance Directive(s) 07/16/2021 8:35 AM Advance Directive(s) 01/24/2019 7:25 AM Documents on File Type Date Recorded Patient Nail Expert Expl anation Advance Directives and Livin g Will 03/17/2022 9:14 AM Advance Directive Response Recorded Date/ Time Living Will No July 16 0 3:34pm Power of Channel Manager No July 16, 2 020 3:34pm History of Present Illness * Khadra Pena, PT - 07/20/2019 10:45 AM EDT [facility] Evaluation Today's Date 07/20/2019 Patient Name: Ayleen Millan Date of : 1940 Case Name: low back pain Functional Diagnosis: 1. Low back pain, unspecified back pain laterality, unspecified chronicity, with sciatica presence unspecified 2. Lumbar radiculopathy 3. Low back pain due to bilateral sciatica Clinical Information: Subjective Referring Diagnosis: Low Back pain History of Present Illness Date of Onset: 07/20/2009 Chief Complaint/ Mechanism of Injury: Patient reports he has been having back pain for several years and has been going down both legs. If he stays in one position too long he has increase in pain. Previous Treatment for this condition: Chiropractic, Injections and Therapy Prior treatment effectiveness: mild Previous Imaging: X-ray Status: unchanged Hand dominance: right Pain Scale: Average Pain: 0/10 Pain at highest: 10/10 Aggravating factors: standing Red Flags: None Barriers to Care: None Fall risk screening Fallen 2 or more times in the last 12 months: No Injured as a result of a fall in the last 12 months: No Personal Goals: Reduce back pain Social History Christian, social, or cultural considerations to be made aware of before starting treatment: No Lumbar Spine General Observations: Normal stance. Gait: Comments: Normal gait pattern. Posture: rounded shoulders posture and reduced lordosis Asymmetrics: Leg length: equal Trunk AROM: Movement Loss % of Loss Description Flexion 50% Extension 50% Side Gliding R 50% Side Gliding L 50% Test Movements Symptoms During Testing Symptoms After Testing Increase ROM Decrease ROM No Effect FIS decreases Rep FIS decreases EIS no effect Rep EIS no effect RAJ decreases Rep RAJ decreases EIL no effect Rep EIL no effect SGIS - R Rep SGIS - R SGIS - L Rep SGIS - L Dermatomes Sensation: grossly intact Muscle Strength:WFL Special Tests SLR Right: SLR R Left: SLR L Palpation/ Tenderness: Tightness in lumbar spine with palpation. Treatments: Physical Therapy Exercise Log - 07/20/19 1051 OTHER Notes Low Back Pain Therapeutic Exercise (88507) Intervention SKC, torso rotation 5 sec 10 times each Parameters Nustep L1.0 5 minutes PT Treatment Times Total Treatment Time 45 Treatment Plan: Frequency of Visits: 3 times per week Duration: 6 weeks Interventions: Therapeutic Exercise and Manual Therapy Rehab Potential: good Goals: Physical Therapy Ortho Goals: The patient will be able to demonstrate good body mechanics without low back pain. The patient will reduce pain with standing by 80% in 6 weeks. The patient will return to normal ADL without pain in 6 weeks. Patient Education provided: Patient given written home program. Clinical Impression: Patient will benefit from therapy to reduce back pain and improve function. Khadra Pena PT State License, [id number] documented in this encounter* Cynthia Kwong PTA - 07/27/2019 10:45 AM EDT [facility] DAILY TREATMENT NOTE Today's Date 07/27/2019 Patient Name: Ayleen Millan Date of : 1940 Current Visit #: 3 Authorized Visits: 100 Case Name: low back pain History: Pre-Treatment Pain Scale: 1 Symptoms: gradually improved Functional Diagnosis: 1. Low back pain due to bilateral sciatica Clinical Information: Subjective: Patient had an injection in his back yesterday from pain management doctor. Feeling good right now. Reports pain comes and goes but wants to avoid surgery at all costs. Objective Patient completed exercises as charted. Added pelvic tilt for core awareness when standing. Added abd bracing with alt arm/leg for additional strengthening. Did not give copies of that due to requiring verbal and tactile cues for technique. Standing back extension at counter. Treatments: Physical Therapy Exercise Log - 07/27/19 1029 OTHER Notes Low Back Pain Therapeutic Exercise (32303) Intervention SKC, DKTC, torso rotation 5 sec 10 times each Parameters Nustep L1.5 8 minutes Intervention SB roll in/out, bridges x 10 each Parameters Abdominal bracing with core engagament 5x10 Intervention abdominal bracing with marches 2x10 Parameters supine gastro stretch with sports cord 10x10 bilat Intervention supine HS stretch 10x 5 bilat Parameters abdominal bracing with alt arm/leg x 10 each PT Treatment Times Therex Total Time 30 Direct Treatment Time 30 Total Treatment Time 35 Goals: Physical Therapy Ortho Goals: The patient will be able to demonstrate good body mechanics without low back pain. The patient will reduce pain with standing by 80% in 6 weeks. The patient will return to normal ADL without pain in 6 weeks. Patient Education: Verbal HEP with patient demonstrated understanding. Post-Treatment Pain Scale: 0 Assessment: Patient had an expected response to treatment. Patient denies increased symptoms with exercises. Skilled Intervention demonstrated by modifications of treatment per exercise log including assessment of patient's response and safety interventions per exercise log. Progress towards goals as expected. Plan for Next Visit: Treatment Visit with focus on core strength and stability per patient tolerance. Cynthia Kwong PTA STATE LICENSE, [id number] documented in this encounter* Isabela Thomas PT - 07/28/2019 10:45 AM EDT [facility] DAILY TREATMENT NOTE Today's Date 07/28/2019 Patient Name: Ayleen Millan Date of : 1940 Current Visit #: 4 Authorized Visits: 100 Case Name: low back pain History: Pre-Treatment Pain Scale: 0 Symptoms: gradually improved Functional Diagnosis: 1. Low back pain due to bilateral sciatica Clinical Information: Subjective: Reports has pain with standing and doing dishes. Had pain standing in line at fast foodthe other day. Patient reports has pain with decreased frequency. Objective Lumbar Spine General Observations: Posture: Stands with slight hip flexion Treatments: Physical Therapy Exercise Log - 07/28/19 1046 OTHER Notes Low Back Pain Vitals 10:45-11:25 Therapeutic Exercise (80303) Intervention SKC, DKTC, torso rotation 5 sec 10 times each Parameters Nustep L1.5 8 minutes Intervention SB roll in/out, bridges x 10 each Parameters Abdominal bracing with core engagament 5x10 Intervention abdominal bracing with marches 2x10 Parameters supine gastro stretch with sports cord 10x10 bilat Parameters abdominal bracing with alt arm/leg x 10 each Intervention supine hip extension stretch off edge of plinth 60 seconds x 1 bilateral Goals: Physical Therapy Ortho Goals: The patient will be able to demonstrate good body mechanics without low back pain. The patient will reduce pain with standing by 80% in 6 weeks. The patient will return to normal ADL without pain in 6 weeks. Patient Education: Quality of movement with patient demonstrated understanding. Post-Treatment Pain Scale: 0 Assessment: Patient had an ability to perform exercises with good form except decrease control withlowering leg with alternating arms and legs with bracing. Skilled Intervention demonstrated by modifications of treatment per exercise log including additionof hip extension stretch to improve posture and safety interventions per exercise log. Progress towards goals as expected. Plan for Next Visit: Treatment Visit with focus on continued core stablization Isabela Thomas, [facility] State License, [id number] documented in this encounter* Cynthia Kwong PTA - 08/08/2019 10:45 AM EDT [facility] DAILY TREATMENT NOTE Today's Date 08/08/2019 Patient Name: Ayleen Millan Date of : 1940 Current Visit #: 8 Authorized Visits: 100 Case Name: low back pain History: Pre-Treatment Pain Scale: 0 Symptoms: gradually improved Functional Diagnosis: 1. Low back pain due to bilateral sciatica Clinical Information: Subjective: Patient reporting good day today. No pain yesterday. Noting longer periods without pain. Had some pain Thursday but reports standing for longer periods. Noted relief with exercises. Objective Completed exercises as charted. Added T-band core activities with rotation and derotational activities. Treatments: Physical Therapy Exercise Log - 08/08/19 1041 OTHER Notes Low Back Pain Therapeutic Exercise (26703) Intervention SKC, DKTC, torso rotation 5 sec 10 times each Parameters Nustep L1.5 10 minutes Intervention SB roll in/out, bridges, crunches x 10 each Parameters Abdominal bracing with core engagament 5x10 Intervention abdominal bracing with marches 2x10 Parameters supine gastro stretch with sports cord 10x10 bilat Intervention Sink exer 10 times each Parameters abdominal bracing with alt arm/leg x 10 each Intervention supine hip extension stretch off edge of plinth 60 seconds x 1 bilateral Parameters Hamstring stretch sitting edge of table 30 sec each side Intervention Shuttle 56# 15 times Parameters GTB shoulder ext w/ abd bracing x 10 Intervention GTB trunk rotation, abd bracing with press x 10 each Parameters sit to stand from plinth x 10 PT Treatment Times Therex Total Time 35 Direct Treatment Time 35 Total Treatment Time 37 Goals: Physical Therapy Ortho Goals: The patient will be able to demonstrate good body mechanics without low back pain. The patient will reduce pain with standing by 80% in 6 weeks. The patient will return to normal ADL without pain in 6 weeks. Patient Education: Verbal HEP with patient demonstrated understanding. Post-Treatment Pain Scale: 0 Assessment: Patient had an expected response to treatment. Skilled Intervention demonstrated by modifications of treatment per exercise log including increased intensity and assessment of patient's response and safety interventions per exercise log. Progress towards goals as expected. Plan for Next Visit: Treatment Visit with focus on strength and stabillity per patient tolerance. Cynthia Kwong PTA STATE LICENSE, [id number] documented in this encounter* Cynthia Kwong PTA - 08/15/2019 10:45 AM EDT [facility] DAILY TREATMENT NOTE Today's Date 08/15/2019 Patient Name: Ayleen Millan Date of : 1940 Current Visit #: 11 Authorized Visits: 100 Case Name: low back pain History: Pre-Treatment Pain Scale: 0 Symptoms: gradually improved Functional Diagnosis: 1. Low back pain due to bilateral sciatica Clinical Information: Subjective: Patient reports he was at a cookout Thursday standing approx. 15 min and then his back starting hurting. Objective Patient completed exercises as charted. Continue to increase weight for increased strength. Did treadmill first with addition of incline for strength and endurance. Discussed locations for exercise around patient's home for continuation of therapy. Treatments: Physical Therapy Exercise Log - 08/15/19 1041 OTHER Notes Low Back Pain Therapeutic Exercise (39101) Parameters Nustep L2.5 10 minutes Parameters standing calf stretch 10x10 bilat Intervention Sink exer 10 times each Intervention supine hip extension stretch off edge of plinth 60 seconds x 1 bilateral Parameters Hamstring stretch sitting edge of table 30 sec each side Intervention Shuttle 62# 15 times Parameters Cybex shld ext, flex 7.5# x 10 each Intervention Cybex trunk rotation 10.0#, lat pulldown 40#, abd 30#, back ext 60# x 15 each Parameters sit to stand from plinth x 10 Intervention Treadmill 2.0 mph x 7 min - 2min at 1.0 incline PT Treatment Times Therex Total Time 37 Direct Treatment Time 37 Total Treatment Time 40 Goals: Physical Therapy Ortho Goals: The patient will be able to demonstrate good body mechanics without low back pain. The patient will reduce pain with standing by 80% in 6 weeks. The patient will return to normal ADL without pain in 6 weeks. Patient Education: Verbal HEP with patient demonstrated understanding. Post-Treatment Pain Scale: 0 Assessment: Patient had an expected response to treatment. Skilled Intervention demonstrated by modifications of treatment per exercise log including increased load and assessment of patient's response and safety interventions per exercise log. Progress towards goals as expected. Plan for Next Visit: Treatment Visit with focus on continued core strength and endurance per patient tolerance. Cynthia Kwong PTA STATE LICENSE, [id number] documented in this encounter* Khadra Pena, PT - 08/22/2019 10:45 AM EDT [facility] TREATMENT NOTE Today's Date 08/22/2019 Patient Name: Ayleen Millan Date of : 1940 Current Visit #: 14 Authorized Visits: 100 Case Name: low back pain History: Pre-Treatment Pain Scale: 3 Symptoms: gradually improved Functional Diagnosis: 1. Low back pain due to bilateral sciatica Clinical Information: Subjective: Patient reports he feels about the same. Objective Added standing back extension and side bending. Treatments: Physical Therapy Exercise Log - 08/22/19 1059 OTHER Notes Low Back Pain Therapeutic Exercise (88374) Intervention TRX squats 15 times Parameters Nustep L2.0 10 minutes - hill program Intervention Standing back extension 10 times Parameters standing calf stretch 10x10 bilat Intervention Sink exer 15 times each Intervention supine hip extension stretch off edge of plinth 60 seconds x 1 bilateral Parameters Hamstring stretch sitting edge of table 30 sec each side Intervention Shuttle 68# 20 times Parameters Cybex shld ext, flex 7.5# x 10 each Intervention Cybex trunk rotation 10.0#, lat pulldown 40#, abd 30#, row 45# x 15 each Parameters sit to stand from plinth x 10 Intervention Treadmill 2.0 mph x 10 min PT Treatment Times Therex Total Time 40 Direct Treatment Time 40 Total Treatment Time 45 Goals: Physical Therapy Ortho Goals: The patient will be able to demonstrate good body mechanics without low back pain. The patient will reduce pain with standing by 80% in 6 weeks. The patient will return to normal ADL without pain in 6 weeks. Patient Education: Quality of movement with patient demonstrated understanding. Post-Treatment Pain Scale: 1 Assessment: Patient had an expected response to treatment. Skilled Intervention demonstrated by modifications of treatment per exercise log including increased load and safety interventions per exercise log. Progress towards goals as expected. Plan for Next Visit: Treatment Visit with focus on core strengthening. Khadra Pena PT State License, [id number] documented in this encounter* Cynthia Kwong, LEAD LEVEL DESIGNER - 08/24/2019 10:45 AM EDT [facility] TREATMENT NOTE Today's Date 08/24/2019 Patient Name: Ayleen Millan Date of : 1940 Current Visit #: 15 Authorized Visits: 100 Case Name: low back pain History: Pre-Treatment Pain Scale: 2 Symptoms: gradually worsened Functional Diagnosis: 1. Low back pain due to bilateral sciatica Clinical Information: Subjective: Patient reports he turned to talk to his yesterday and had pain down his leg. Has subsided some today. Objective Patient completed exercises as charted. Returned to some of the table exercises for review and heldsome of the Cybex today. Treatments: Physical Therapy Exercise Log - 08/24/19 1039 OTHER Notes Low Back Pain Therapeutic Exercise (34088) Intervention TRX squats 15 times Parameters Nustep L2.0 10 minutes - hill program Intervention Standing back extension 10 times Parameters standing calf stretch 10x10 bilat Intervention Sink exer 15 times each Intervention supine hip extension stretch off edge of plinth 60 seconds x 1 bilateral Parameters Hamstring stretch sitting edge of table 30 sec each side Intervention Shuttle 68# 20 times Parameters Cybex shld ext, flex 7.5# x 10 each - held 08/24/19 Intervention Cybex trunk rotation 10.0#, lat pulldown 40#, abd 30#, row 45# x 15 each - held 08/24/19 Parameters sit to stand from plinth x 10 Intervention Treadmill 2.0 mph x 10 min PT Treatment Times Therex Total Time 40 Direct Treatment Time 40 Total Treatment Time 45 Goals: Physical Therapy Ortho Goals: The patient will be able to demonstrate good body mechanics without low back pain. The patient will reduce pain with standing by 80% in 6 weeks. The patient will return to normal ADL without pain in 6 weeks. Patient Education: Verbal HEP with patient demonstrated understanding. Post-Treatment Pain Scale: 0 Assessment: Patient had an expected response to treatment. Denies symptoms following session. Skilled Intervention demonstrated by modifications of treatment per exercise log including assessment of patient's response and safety interventions per exercise log. Progress towards goals as expected. Plan for Next Visit: Treatment Visit with focus on core strength and endurance per patient tolerance. Cynthia Kwong PTA STATE LICENSE, [id number] documented in this encounter* Cynthia Kwong PTA - 08/25/2019 10:45 AM EDT [facility] TREATMENT NOTE Today's Date 08/25/2019 Patient Name: Ayleen Millan Date of : 1940 Current Visit #: 16 Authorized Visits: 100 Case Name: low back pain History: Pre-Treatment Pain Scale: 0 Symptoms: gradually improved Functional Diagnosis: 1. Low back pain due to bilateral sciatica Clinical Information: Subjective: Patient had another episode this morning where pain shot up to 10/02. States it lasts 2-3 minutes then pain subsides. Objective Exercises as charted. Continued to hold Cybex exercises. Instructed patient in piriformis stretch for further stretching and range of motion. Treatments: Physical Therapy Exercise Log - 08/25/19 1041 OTHER Notes Low Back Pain Therapeutic Exercise (58671) Intervention TRX squats 15 times Parameters Nustep L2.5 10 minutes - hill program Intervention Standing back extension 10 times Parameters piriformis stretch 10 x 5 Parameters standing calf stretch 10x10 bilat Intervention Sink exer 15 times each Intervention supine hip extension stretch off edge of plinth 60 seconds x 1 bilateral Parameters Hamstring stretch sitting edge of table 30 sec each side Intervention Shuttle 68# 20 times Parameters Cybex shld ext, flex 7.5# x 10 each - held 08/25/19 Intervention Cybex trunk rotation 10.0#, lat pulldown 40#, abd 30#, row 45# x 15 each - held 08/25/19 Parameters sit to stand from plinth x 10 Intervention Treadmill 2.0 mph x 10 min - held 08/25/19 PT Treatment Times Therex Total Time 37 Direct Treatment Time 37 Total Treatment Time 42 Goals: Physical Therapy Ortho Goals: The patient will be able to demonstrate good body mechanics without low back pain. The patient will reduce pain with standing by 80% in 6 weeks. The patient will return to normal ADL without pain in 6 weeks. Patient Education: Verbal HEP with patient demonstrated understanding. Post-Treatment Pain Scale: 0 Assessment: Patient had an expected response to treatment. Skilled Intervention demonstrated by modifications of treatment per exercise log including assessment of patient's response and safety interventions per exercise log. Progress towards goals as expected. Plan for Next Visit: Treatment Visit with focus on strength and endurance per patient tolerance. Cynthia Kwong PTA STATE LICENSE, [id number] documented in this encounter* Madelyn Pena, PT - 08/29/2019 10:45 AM EDT [facility] TREATMENT NOTE Today's Date 08/29/2019 Patient Name: Ayleen Millan Date of : 1940 Current Visit #: 17 Authorized Visits: 100 Case Name: low back pain History: Pre-Treatment Pain Scale: 2 Symptoms: gradually improved Functional Diagnosis: 1. Low back pain due to bilateral sciatica Clinical Information: Subjective: Patient reports now that the [place] fair is over he can walk again. Objective Performed exercises as outlined and increased resistance on most exercises. Had some left hip pain with getting off equipment at times. Treatments: Physical Therapy Exercise Log - 08/29/19 1055 OTHER Notes Low Back Pain Therapeutic Exercise (24292) Intervention TRX squats 15 times Parameters Nustep L2.5 10 minutes - hill program Intervention Standing back extension 15 times Parameters piriformis stretch 10 x 5 Intervention Supine ball in and out, bridging, torso rot 10 times each Parameters standing calf stretch 10x10 bilat Intervention Sink exer 15 times each Intervention supine hip extension stretch off edge of plinth 60 seconds x 1 bilateral Parameters Hamstring stretch sitting edge of table 30 sec each side Intervention Shuttle 76# 20 times Parameters Cybex shld ext, flex 10# x 10 each - Intervention Cybex trunk rotation 10.0#, lat pulldown 40#, abd 30#, row 45# x 15 each - held 08/25/19 Parameters sit to stand from plinth x 10 Intervention Treadmill 2.0 mph x 10 min - PT Treatment Times Therex Total Time 45 Direct Treatment Time 45 Total Treatment Time 45 Goals: Physical Therapy Ortho Goals: The patient will be able to demonstrate good body mechanics without low back pain. The patient will reduce pain with standing by 80% in 6 weeks. The patient will return to normal ADL without pain in 6 weeks. Patient Education: Quality of movement with patient demonstrated understanding. Post-Treatment Pain Scale: 1 Assessment: Patient had an expected response to treatment. Skilled Intervention demonstrated by modifications of treatment per exercise log including increased load and safety interventions per exercise log. Progress towards goals as expected. Plan for Next Visit: Treatment Visit with focus on core stability Madelyn Pena PT State License, [id number] documented in this encounter* Gael Nelson MD - 09/06/2019 10:49 AM EDT [facility] [address] [place] [address], [address] [place] [address] I had the pleasure of seeing Ayleen Millan on 09/06/19. Subjective History of Present Illness: He returns for follow-up of his hypertrophic cardiomyopathy. He still experiences orthostatic dizziness and lightheadedness and near syncope occasionally. This happens especially after physical therapy exercises. He is still taking Flomax. He and his try to drink plenty of fluids throughout the day. He has had no leny syncope and no palpitations or chest discomfort. He has mild exertional dyspnea but this is chronic and stable. ECG today shows sinus bradycardia 58 bpm with right bundle branch block and left anterior fascicular block similar to previous tracings. Physical examination is normal except for a very soft systolic murmur at the left sternal border. BMI is 31.8 with a weight of 101.9 kg. Blood pressure is 126/69. Exercise stress echocardiography performed last year on 08/19/2018 revealed mildly reduced exercise capacity, no resting left ventricular outflow tract obstruction, normal blood pressure response to exercise, and no significant exercise-induced arrhythmias were detected. 24-hour Holter monitor on 08/26/2018 revealed rare supraventricular premature complexes and a singleventricular premature complex but no sustained ventricular tachycardia was detected. Impression: 1. Hypertrophic cardiomyopathy He is doing well with no high risk features to suggest the need for defibrillator therapy. We will repeat his risk stratification procedures again in 1 year with a repeat exercise stress echocardiogram and a 24-hour Holter monitor. I plan to see him in follow-up shortly after the test results are av ailable. 2. Orthostatic lightheadedness and dizziness The symptoms are chronic and infrequent. Left ventricular outflow tract obstruction due to his hypertrophic obstructive cardiomyopathy could be one factor though I suspect that his symptoms are primarily related to vasodilation from Flomax and intermittent intravascular volume depletion. I asked him to talk with his urologist about alternatives to Flomax. 3. Hypertension Well-controlled on medical therapy. 4. Right bundle branch block and left anterior fascicular block These are chronic stable findings and are likely related to his hypertrophic cardiomyopathy. I plan to see him in follow-up in 1 year. HISTORY Past Medical History: Diagnosis Date Cardiomyopathy (HCC) GERD (gastroesophageal reflux disease) Hyperlipidemia Hypertension Hypertrophic cardiomyopathy (HCC) Osteoarthrosis Prostate cancer (HCC) Renal cyst 2012 Past Surgical History: Procedure Laterality Date CARDIAC CATHETERIZATION 12/19/2004 EF 75%, Valve functions within normal limits CATARACT EXT/ECCE Bilateral COLONOSCOPY [facility] HEMORRHOIDECTOMY STAPLED HEMORRHOIDOPEXY (PPH) TUMOR REMOVAL Middle of back Family History Problem Relation Age of Onset Heart attack Brother Social History Tobacco Use Smoking status: Never Smoker Smokeless tobacco: Never Used Substance Use Topics Alcohol use: No Drug use: No Outpatient Medications as of 09/06/2019 Medication Sig acetaminophen (TYLENOL) 160 mg/5 mL (5 mL) Soln Take 81 mg by mouth as needed . amLODIPine (NORVASC) 5 MG tablet Take 5 mg by mouth every morning . aspirin 81 MG EC tablet Take 81 mg by mouth daily . atenolol (TENORMIN) 50 MG tablet Take 1 (one) tablet (50 mg total) by mouth 2 (two) times a day. calcium carbonate-vitamin D3 (CALCIUM 500 WITH D) 500 mg(1,250mg) -400 unit Tab Take 500 mg by mouth daily lovastatin (MEVACOR) 40 MG tablet Take 1 tablet by mouth 2 (two) times a day. meloxicam (MOBIC) 7.5 MG tablet TAKE 1 TABLET BY MOUTH ONCE DAILY FOR 30 DAYS omeprazole (PRILOSEC) 40 MG capsule Take 1 capsule by mouth 2 (two) times a day. quinapril (ACCUPRIL) 40 MG tablet Take 1 (one) tablet (40 mg total) by mouth daily. tamsulosin (FLOMAX) 0.4 mg capsule Take 0.4 mg by mouth daily Allergies Allergen Reactions Hydrocodone-Acetaminophen Tramadol Itching Atorvastatin Calcium Other (See Comments) leg cramps Ezetimibe Simvastatin Ntmctah-Szf-Ehh Reductase Inhibitors Other (See Comments) leg cramping with most statins Review of Systems: I reviewed and confirmed the comprehensive review of systems which was obtained by the senior medical director. PHYSICAL EXAMINATION Vitals: Vitals: 09/06/19 1025 BP: 126/69 BP Location: Right arm Pulse: 60 Weight: 101.9 kg (224 lb 11.2 oz) Height: 5' 10.5 Body mass index is 31.79 kg/m . General: Alert and oriented. No acute distress. Head: Normocephalic. Neck: Normal jugular venous pressure without prominent V waves. No thyromegaly appreciated. No carotid bruits. Heart: Regular rhythm. No murmur, pericardial rub, or S3 or S4 gallop was detected. Lungs: Clear to auscultation bilaterally with normal air movement. No rhonchi, rales, or wheezes. Abdomen: Soft, nontender, nondistended. No hepatosplenomegaly appreciated. Normal bowel sounds. Extremities: Normal range of motion with no clubbing, cyanosis, or edema. Pulses: Radial pulses are normal (+2) bilaterally. Skin: Normal turgor. No rashes appreciated. Neurology: Alert and normally conversant. No gross motor or sensory deficits noted. Return in about 1 year (around 09/06/2020) for after testing. Please do not hesitate to contact our office at [phone] should you have questions. Thank you for allowing me to participate in the care of your patient. Sincerely, Gael Nelson MD, FACC, FASE, MASNC, FSCCT * Karen Pantoja MA - 09/06/2019 10:24 AM EDT Review of Systems Constitution: Negative for diaphoresis, malaise/fatigue, weight gain and weight loss. HENT: Positive for hearing loss and tinnitus. Negative for nosebleeds. Eyes: Negative for blurred vision and visual disturbance. Cardiovascular: Positive for dyspnea on exertion and near-syncope. Negative for chest pain, claudication, cyanosis, irregular heartbeat, leg swelling, orthopnea, palpitations, paroxysmal nocturnal dyspnea and syncope. Respiratory: Positive for snoring. Negative for hemoptysis and shortness of breath. Endocrine: Positive for cold intolerance and heat intolerance. Hematologic/Lymphatic: Does not bruise/bleed easily. Skin: Negative for flushing, poor wound healing and rash. Musculoskeletal: Positive for back pain. Negative for muscle weakness and myalgias. Gastrointestinal: Negative for abdominal pain, change in bowel habit, melena, nausea and vomiting. Genitourinary: Negative for decreased libido and hematuria. Neurological: Negative for loss of balance and numbness. Psychiatric/Behavioral: Negative for memory loss. The patient is not nervous/anxious. documented in this encounter* Melanie Burciaga MD - 10/11/2020 10:10 AM EST Physicians: Alonso Wheat MD (Family) Today's Chief Complaint: To establish cardiovascular care locally HISTORY: Subjective I had the pleasure of seeing Mr. Millan today at the [facility] in [place]. Patient is a pleasant 79-year-old male with a history of reported hypertrophic cardiomyopathy with hypertension, hyperlipidemia, osteoarthritis and reflux who had been following with in [place] for many years, last seen by him August 2019 but is seeing me today for the first time to establish care locally. carries a diagnosis of hypertrophic cardiomyopathy, he had carried this diagnosis for many years. He has never had any genetic testing, no specific familial history elicited of hypertrophiccardiomyopathy. Patient has no biological children. Limited records from the distant past are able to be reviewed. Patient had a left heart catheterization in 2004 that was unremarkable. He had a tilt table test [id number] that was positive for postural orthostasis, and subsequent EP study that showed normal intracardiac conduction this was in the face of syncope with a right bundle branch block on EKG. Patient had been followed by cardiology on a regular basis and had frequent stress echocardiograms as well as Holter monitors. Exercise stress echocardiography performed last year on 08/19/2018 revealed reduced exercise capacity, no resting left ventricular outflow tract obstruction, normal blood pressure response to exercise, and no significant exercise-induced arrhythmias were detected. Patient did not reach target heart r ate on his last several stress echoes. He stopped due to fatigue. Left ventricular septal wall thickness measured on 2D echo at 1.28 cm, posterior wall 1.25 cm no LVOT obstruction has been reported. And only trivial mitral regurgitation and no RAMÍREZ. 24-hour Holter monitor on 08/26/2018 revealed rare supraventricular premature complexes and a singleventricular premature complex but no sustained ventricular tachycardia was detected. Patient denies any recent syncope, none in the last several years. Patient limited due to back issues and arthritis. Limited with standing. Lives independently. No yard work. No chest pain or shortness of breath. Some lower extremity edema. He was given lasix and that caused symptomatic hypotension. He stated that he will macdonald compression stockings on a regular basis. Impression/Plan: History of reported hypertrophic cardiomyopathy: No genetic testing has been performed, no family history. Septal wall thickness appears to be 1.28 cm stress echo from 2018. No evidence of outflow tract gradient or RAMÍREZ, only trivial mitral regurgitation. Patient has no biological children, therefore genetic testing is less concerning. Syncope in the past appears secondary to postural orthostasis with a positive tilt table test patient has had no high risk arrhythmic features. Patient is self-limited and his exercise due to significant back and arthritic problems. Patient has no demonstrable heart failure symptomatology. We will plan for cardiac MRI for evaluation of cardiac morphology, myocardial scar. Based on descriptions of echo seem to be more concentric LVH. We will follow up on results of cardiac MRI. Based on old data patient would meet no criteria for ICD implantation. Hyperlipidemia with a history of statin intolerance. Lipids managed by primary care provider, tolerating lovastatin without issue. No evidence of coronary artery disease based on left heart catheterization in 2004. No recent ischemic evaluation. Exercise stress echo was completed in 2015 as well [id number] failed to reach target heart rate, and would be indeterminant for ischemia due to such finding. History of positive tilt table test in 2002: EP study performed at the same time was unremarkable. Patient has a longstanding history of right bundle branch block on EKG. Intermittent lightheadedness, intolerance of Lasix due to symptomatic hypotension. Recommended prescription compression stockings for mild lower extremity edema. Hypertension: Blood pressure appears controlled on present therapy. Patient to follow on an annual basis. FOR THE RECORD: Diagnostic Studies/Labs personally reviewed: ECG personally reviewed from today with sinus rhythm, right bundle branch block which is old. Allergies: is allergic to hydrocodone-acetaminophen; tramadol; atorvastatin calcium; ezetimibe; simvastatin; and tjzqemw-kvw-evv reductase inhibitors. Medications: (list name, dose, frequency, and last dose taken): Current Outpatient Medications: acetaminophen (TYLENOL) 160 mg/5 mL (5 mL) Soln, Take 81 mg by mouth as needed ., Disp: , Rfl: amLODIPine (NORVASC) 5 MG tablet, Take 5 mg by mouth every morning ., Disp: , Rfl: aspirin 81 MG EC tablet, Take 81 mg by mouth daily ., Disp: , Rfl: atenolol (TENORMIN) 50 MG tablet, Take 1 (one) tablet (50 mg total) by mouth 2 (two) times a day., Disp: 180 tablet, Rfl: 3 calcium carbonate-vitamin D3 (CALCIUM 500 WITH D) 500 mg(1,250mg) -400 unit Tab, Take 500 mg by mouth daily, Disp: , Rfl: lovastatin (MEVACOR) 40 MG tablet, Take 2 tablets by mouth nightly ., Disp: , Rfl: meloxicam (MOBIC) 7.5 MG tablet, TAKE 1 TABLET BY MOUTH ONCE DAILY FOR 30 DAYS, Disp: , Rfl: 2 omeprazole (PRILOSEC) 40 MG capsule, Take 1 capsule by mouth 2 (two) times a day., Disp: , Rfl: quinapriL (ACCUPRIL) 40 MG tablet, Take 1 (one) tablet (40 mg total) by mouth daily ., Disp: 90 tablet, Rfl: 3 tamsulosin (FLOMAX) 0.4 mg capsule, Take 0.4 mg by mouth daily, Disp: , Rfl: Past Medical History: Diagnosis Date Cardiomyopathy (HCC) GERD (gastroesophageal reflux disease) Hyperlipidemia Hypertension Hypertrophic cardiomyopathy (HCC) Osteoarthrosis Prostate cancer (HCC) Renal cyst 2012 Past Surgical History: Procedure Laterality Date CARDIAC CATHETERIZATION 12/19/2004 EF 75%, Valve functions within normal limits CATARACT EXT/ECCE Bilateral COLONOSCOPY [facility] HEMORRHOIDECTOMY STAPLED HEMORRHOIDOPEXY (PPH) TUMOR REMOVAL Middle of back Social History: Patient reports that he has never smoked. He has never used smokeless tobacco. He reports that he does not drink alcohol or use drugs. Family History: family history includes Heart attack in his brother. REVIEW OF SYSTEMS Review of Systems Constitution: Negative. HENT: Negative. Eyes: Negative. Respiratory: Negative. Endocrine: Negative. Hematologic/Lymphatic: Does not bruise/bleed easily. Skin: Negative. Musculoskeletal: Positive for arthritis and back pain. Gastrointestinal: Negative for abdominal pain. Genitourinary: Negative for dysuria and hematuria. Neurological: Positive for light-headedness. Psychiatric/Behavioral: Negative. PHYSICAL EXAM General appearance: Patient appears no apparent distress Blood pressure 137/80, pulse 66, height 5' 10.5, weight 98.9 kg (218 lb), SpO2 97 %. Wt Readings from Last 3 Encounters: 10/11/20 98.9 kg (218 lb) 09/06/19 101.9 kg (224 lb 11.2 oz) 08/19/18 97.1 kg (214 lb) Body mass index is 30.84 kg/m . Physical Exam Constitutional: He is oriented to person, place, and time. He appears well- developed and well-nourished. HENT: Head: Normocephalic and atraumatic. Eyes: Pupils are equal, round, and reactive to light. Neck: No JVD present. Cardiovascular: Normal rate, regular rhythm and normal heart sounds. Exam reveals no gallop and no friction rub. No murmur heard. Pulses: Radial pulses are 2+ on the right side and 2+ on the left side. Pulmonary/Chest: Effort normal and breath sounds normal. He has no wheezes. He has no rales. Abdominal: Soft. He exhibits no distension. There is no abdominal tenderness. Musculoskeletal: General: Edema present. Comments: Trace pitting pretibial edema Neurological: He is alert and oriented to person, place, and time. Skin: Skin is warm and dry. Psychiatric: He has a normal mood and affect. documented in this encounter* Madelyn Pena, PT - 09/01/2019 10:45 AM EDT [facility] TREATMENT NOTE Today's Date 09/01/2019 Patient Name: Ayleen Millan Date of : 1940 Current Visit #: 19 Authorized Visits: 100 Case Name: low back pain History: Pre-Treatment Pain Scale: 2 Symptoms: gradually improved Functional Diagnosis: 1. Low back pain due to bilateral sciatica Clinical Information: Subjective: Patient reports he is ok with home exercises and seems like it helps keep his pain under control. Objective Patient has full trunk ROM and is walking with normal gait pattern. He has good posture at this time. He is independent with his home program and has met goals set at initial evaluation. Treatments: Physical Therapy Exercise Log No documentation. Goals: Physical Therapy Ortho Goals: The patient will be able to demonstrate good body mechanics without low back pain. The patient will reduce pain with standing by 80% in 6 weeks. The patient will return to normal ADL without pain in 6 weeks. Patient Education: Quality of movement with patient demonstrated understanding. Post-Treatment Pain Scale: 1 Assessment: Patient had an expected response to treatment. Skilled Intervention demonstrated by modifications of treatment per exercise log including increased load and safety interventions per exercise log. Progress towards goals as expected. Plan for Next Visit: Discharge Madelyn Pena PT State License, [id number] documented in this encounter* Nereyda Montelongo RN - 01/15/2021 9:25 AM EST 30 Day Cardiac Event Monitor: A cardiac event monitor has been ordered. It is a device that is worn that will record your heart beat and rhythm. It will be mailed from [employer] to your home and put on by yourself at home. On your After Visit Summary under What's Next will be what looks like an office visit labeled Cardiac Event Monitor and has our office address and a date/time listed. THIS IS NOT AN ACTUAL OFFICEVISIT THAT YOU NEED TO COME TO. It is our documentation that your monitor was ordered and is to make sure that the company knows to mail it to you. Prior to it being mailed you will receive a phone call from the [employer] that supplies the cardiac event monitor to confirm your address. Please be sure to answer the phone as they will not mail it toyou if address is not confirmed. It will be an out of state phone number. An instruction manual will accompany the monitor to assist you in putting on the monitor, charging the battery and answering any questions you may have. If after reading the instructions you have anyquestions please do not hesitate to call the company at the number they have provided in the instruction manual. They will send two batteries and a trestle builder. While you are wearing one of the batteries please have the other battery charging in the trestle builder device. Please do not get the device wet. Patches that you will wear will be provided. Please rotate the site that you put the patches on to prevent skin breakdown. *If you are having issues with skin sensitivity please call the number in the [employer] manual to request hypoallergenic patches. When completed please mail back to the company in the box originally provided and send back via UPS. Instructions will accompany the device on how to do this. It can take three weeks or more to get a report back after you have finished wearing the monitor. You will be notified when results have been interpreted by a senior sustainability consultant. If you have any questions please call [phone]. documented in this encounter* Cynthia Kwong PTA - 08/04/2019 10:45 AM EDT [facility] TREAT[facility] NOTE Today's Date 08/04/2019 Patient Name: Ayleen Millan Date of : 1940 Current Visit #: 7 Authorized Visits: 100 Case Name: low back pain History: Pre-Treatment Pain Scale: 0 Symptoms: gradually improved Functional Diagnosis: 1. Low back pain due to bilateral sciatica Clinical Information: Subjective: Patient with no complaints today. Has not had any increased symptoms since last visit. Objective Continued with exercises as charted. Added abd crunches for core strengthening. Treatments: Physical Therapy Exercise Log - 08/04/19 1042 OTHER Notes Low Back Pain Therapeutic Exercise (98372) Intervention SKC, DKTC, torso rotation 5 sec 10 times each Parameters Nustep L1.5 10 minutes Intervention SB roll in/out, bridges x 10 each Parameters Abdominal bracing with core engagament 5x10 Intervention abdominal bracing with marches 2x10 Parameters supine gastro stretch with sports cord 10x10 bilat Intervention Sink exer 10 times each Parameters abdominal bracing with alt arm/leg x 10 each Intervention supine hip extension stretch off edge of plinth 60 seconds x 1 bilateral Parameters Hamstring stretch sitting edge of table 30 sec each side Intervention Shuttle 50# 15 times Parameters wall squats witih red SB 10 times Intervention wall squat with trunk rotation 3# x 10 PT Treatment Times Therex Total Time 35 Direct Treatment Time 35 Total Treatment Time 37 Goals: Physical Therapy Ortho Goals: The patient will be able to demonstrate good body mechanics without low back pain. The patient will reduce pain with standing by 80% in 6 weeks. The patient will return to normal ADL without pain in 6 weeks. Patient Education: Verbal HEP with patient demonstrated understanding. Post-Treatment Pain Scale: 0 Assessment: Patient had an expected response to treatment. Skilled Intervention demonstrated by modifications of treatment per exercise log including assessment of patient's response and safety interventions per exercise log. Progress towards goals as expected. Plan for Next Visit: Treatment Visit with focus on strength and stability per patient tolerance. Cynthia Kwong PTA STATE LICENSE, [id number] documented in this encounter* Timmy Summers, MARTINE - 07/21/2019 10:45 AM EDT [facility] TREATMENT NOTE Today's Date 07/21/2019 Patient Name: Ayleen Millan Date of : 1940 Current Visit #: 2 Authorized Visits: 100 Case Name: low back pain History: Pre-Treatment Pain Scale: 0 Symptoms: stabilized Functional Diagnosis: 1. Low back pain due to bilateral sciatica Clinical Information: Subjective: Pt notes increased LBP and soreness and stiffness present upon waking this morning and notes L) >(R). Pt notes compliance with HEP ex's given at IE without and questions or concerns atthis time. Pt notes no increase in pain and sx after IE last visit or with HEP ex's. Pt notes pain and sx in LB just comes and goes. Objective: Nustep to warm up LEs to begin treatment. Cont'd with ex's per flow sheet while progressing to core strengthening and LEs stretching ex' to improve core stability with ADLs and LE ROM to improve functional mobility with ADLs, and gait without increased pain and sx. Educated pt on proper body mechanics with lifting, transfers, bed mobility, and ergonomics, all to decreased painand sx inLB and increase functional mobility. Treatments: Physical Therapy Exercise Log - 07/21/19 1045 OTHER Notes Low Back Pain [id number] (concurent) Therapeutic Exercise (78017) Intervention SKC, torso rotation 5 sec 10 times each Parameters Nustep L1.5 8 minutes Intervention Transfer training, bed mobility, and posture, and sleep postioning training 5 min Parameters Abdominal bracing with core engagament 5x10 Intervention abdominal bracing with marches 2x10 Parameters supine gastro stretch with sports cord 10x10 bilat Intervention Manual supine HS stretch 20x 5 bilat PT Treatment Times Therex Total Time 24 Direct Treatment Time 24 Total Treatment Time 39 concurrent care Goals: Physical Therapy Ortho Goals: The patient will be able to demonstrate good body mechanics without low back pain. The patient will reduce pain with standing by 80% in 6 weeks. The patient will return to normal ADL without pain in 6 weeks. Patient Education: Quality of movement, Verbal HEP, HEP Adherence and and posture, body mechanics, sleep positioning, transfers and bed mobility with patient demonstrated understanding and verbalizedunderstanding. Post-Treatment Pain Scale: 0 Assessment: Patient had an expected response to treatment. Pt required extra time, few short rest breaks, demo, and VC's for ROM, pace, sequencing, core engagement, breathing technique, posture, all to complete ex's per flow sheet and with Fair minus return demo. Skilled Intervention demonstrated by modifications of treatment per exercise log including increased rate, increased mobility, increased volume and assessment of patient's response and safety interventions per exercise log. Progress towards goals as expected. Plan for Next Visit: Monitor response to todays treatment and cont to progress toward set goals in POC as tolerated. Review supine <_>sit transfer and add to HEP as needed. Timmy Summers PTA STATE LICENSE, [id number] documented in this encounter* Khadra Pnea, PT - 08/01/2019 10:45 AM EDT [facility]ILY TREATMENT NOTE Today's Date 08/01/2019 Patient Name: Ayleen Millan Date of : 1940 Current Visit #: 5 Authorized Visits: 100 Case Name: low back pain History: Pre-Treatment Pain Scale: 2 Symptoms: gradually improved Functional Diagnosis: 1. Low back pain due to bilateral sciatica Clinical Information: Subjective: Patient states his back pain comes and goes. No problems with home exercises. Has problems if he is standing too long and feels like leg is going to give out. Objective Progressed with sink exercises and added Shuttle for leg strengthening. Treatments: Physical Therapy Exercise Log - 08/01/19 1037 OTHER Notes Low Back Pain Vitals 10:45-11:25 Therapeutic Exercise ([id number]) Intervention SKC, DKTC, torso rotation 5 sec 10 times each Parameters Nustep L1.5 10 minutes Intervention SB roll in/out, bridges x 10 each Parameters Abdominal bracing with core engagament 5x10 Intervention abdominal bracing with marches 2x10 Parameters supine gastro stretch with sports cord 10x10 bilat Intervention Sink exer 10 times each Parameters abdominal bracing with alt arm/leg x 10 each Intervention supine hip extension stretch off edge of plinth 60 seconds x 1 bilateral Parameters Hamstring stretch sitting edge of table 30 sec each side Goals: Physical Therapy Ortho Goals: The patient will be able to demonstrate good body mechanics without low back pain. The patient will reduce pain with standing by 80% in 6 weeks. The patient will return to normal ADL without pain in 6 weeks. Patient Education: Quality of movement with patient demonstrated understanding. Post-Treatment Pain Scale: 1 Assessment: Patient had an expected response to treatment. Skilled Intervention demonstrated by modifications of treatment per exercise log including increased load and safety interventions per exercise log. Progress towards goals as expected. Plan for Next Visit: Treatment Visit with focus on core strengthening. Khadra Pena PT State License, [id number] documented in this encounter* Cynthia Kwong PTA - 08/10/2019 10:45 AM EDT [facility] TREATMENT NOTE Today's Date 08/10/2019 Patient Name: Ayleen Millan Date of : 1940 Current Visit #: 9 Authorized Visits: 100 Case Name: low back pain History: Pre-Treatment Pain Scale: 0 Symptoms: gradually improved Functional Diagnosis: 1. Low back pain due to bilateral sciatica Clinical Information: Subjective: Patient reports his legs are a little tired today. Was up early this morning, but denies pain. Objective Patient completed exercises as charted. Held table top exercises for HEP and progressed to Cybex equipment for increased strength, stability and endurance. Treatments: Physical Therapy Exercise Log - 08/10/19 1045 OTHER Notes Low Back Pain Therapeutic Exercise (41610) Intervention SKC, DKTC, torso rotation 5 sec 10 times each Parameters Nustep L1.5 10 minutes Intervention SB roll in/out, bridges, crunches x 10 each Parameters Abdominal bracing with core engagament 5x10 Intervention abdominal bracing with marches 2x10 Parameters supine gastro stretch with sports cord 10x10 bilat Intervention Sink exer 10 times each Parameters abdominal bracing with alt arm/leg x 10 each Intervention supine hip extension stretch off edge of plinth 60 seconds x 1 bilateral Parameters Hamstring stretch sitting edge of table 30 sec each side Intervention Shuttle 56# 15 times Parameters GTB shoulder ext w/ abd bracing x 10 Intervention Cybex trunk rotation 7.5#, lat pulldown 30#, abd 30#, back ext 60# x 10 each Parameters sit to stand from plinth x 10 Intervention Treadmill x 5 min PT Treatment Times Therex Total Time 35 Direct Treatment Time 35 Total Treatment Time 40 Goals: Physical Therapy Ortho Goals: The patient will be able to demonstrate good body mechanics without low back pain. The patient will reduce pain with standing by 80% in 6 weeks. The patient will return to normal ADL without pain in 6 weeks. Patient Education: Verbal HEP with patient demonstrated understanding. Post-Treatment Pain Scale: 0 Assessment: Patient had an expected response to treatment. Good overall progress with strength. Skilled Intervention demonstrated by modifications of treatment per exercise log including increased intensity and assessment of patient's response and safety interventions per exercise log. Progress towards goals as expected. Plan for Next Visit: Treatment Visit with focus on strength and stability per patient tolerance. Cynthia Kwong PTA STATE LICENSE, [id number] documented in this encounter* Madelyn Pena, PT - 08/31/2019 10:45 AM EDT [facility] TREAT[facility] NOTE Today's Date 08/31/2019 Patient Name: Ayleen Millan Date of : 1940 Current Visit #: 18 Authorized Visits: 100 Case Name: low back pain History: Pre-Treatment Pain Scale: 3 Symptoms: stabilized Functional Diagnosis: 1. Low back pain due to bilateral sciatica Clinical Information: Subjective: Patient reports woke up with increase pain into Left leg. Had difficulty getting out ofbed due to pain. He checked into the new gym in [place] and is going to get a monthly membership when he returns from [place]. Objective Discussed performing some of his stretches for low back prior to getting out of bed. Treatments: Physical Therapy Exercise Log - 08/31/19 1052 OTHER Notes Low Back Pain Therapeutic Exercise (68927) Intervention TRX squats 15 times Parameters Recumbent bike L6 10 minutes Intervention Standing back extension 15 times Parameters piriformis stretch 10 x 5 Intervention Supine ball in and out, bridging, torso rot 10 times each Parameters standing calf stretch 10x10 bilat Intervention Sink exer 15 times each Parameters sit to stand from plinth x 10 Intervention supine hip extension stretch off edge of plinth 60 seconds x 1 bilateral Parameters Hamstring stretch sitting edge of table 30 sec each side Intervention Shuttle 75# 20 times Parameters Cybex shld ext, flex 10# x 10 each - Intervention Cybex trunk rotation 10.0#, lat pulldown 40#, abd 30#, row 45# x 15 each - held 08/25/19 Parameters -- Intervention -- PT Treatment Times Therex Total Time 45 Direct Treatment Time 45 Total Treatment Time 45 Goals: Physical Therapy Ortho Goals: The patient will be able to demonstrate good body mechanics without low back pain. The patient will reduce pain with standing by 80% in 6 weeks. The patient will return to normal ADL without pain in 6 weeks. Patient Education: Quality of movement with patient demonstrated understanding. Post-Treatment Pain Scale: 2 Assessment: Patient had an expected response to treatment. Skilled Intervention demonstrated by modifications of treatment per exercise log including increased load and safety interventions per exercise log. Progress towards goals as expected. Plan for Next Visit: Treatment Visit with focus on one more vist. Madelyn Pena PT State License, [id number] documented in this encounter* Cynthia Kwong, LEAD LEVEL DESIGNER - 08/03/2019 10:45 AM EDT [facility] TREAT[facility] NOTE Today's Date 08/03/2019 Patient Name: Ayleen Millan Date of : 1940 Current Visit #: 6 Authorized Visits: 100 Case Name: low back pain History: Pre-Treatment Pain Scale: 2 Symptoms: stabilized Functional Diagnosis: 1. Low back pain due to bilateral sciatica Clinical Information: Subjective: Patient continues to report back pain comes and goes with no rhyme or reason. Does report these episodes are happening less frequently. Objective Patient completed exercises as charted. Treatments: Physical Therapy Exercise Log - 08/03/19 1037 OTHER Notes Low Back Pain Therapeutic Exercise (44771) Intervention SKC, DKTC, torso rotation 5 sec 10 times each Parameters Nustep L1.5 10 minutes Intervention SB roll in/out, bridges x 10 each Parameters Abdominal bracing with core engagament 5x10 Intervention abdominal bracing with marches 2x10 Parameters supine gastro stretch with sports cord 10x10 bilat Intervention Sink exer 10 times each Parameters abdominal bracing with alt arm/leg x 10 each Intervention supine hip extension stretch off edge of plinth 60 seconds x 1 bilateral Parameters Hamstring stretch sitting edge of table 30 sec each side Intervention Shuttle 50# 15 times Parameters wall squats witih red SB 10 times PT Treatment Times Therex Total Time 37 Direct Treatment Time 37 Total Treatment Time 45 Goals: Physical Therapy Ortho Goals: The patient will be able to demonstrate good body mechanics without low back pain. The patient will reduce pain with standing by 80% in 6 weeks. The patient will return to normal ADL without pain in 6 weeks. Patient Education: Verbal HEP with patient demonstrated understanding. Post-Treatment Pain Scale: 0 Assessment: Patient had an expected response to treatment. Skilled Intervention demonstrated by modifications of treatment per exercise log including assessment of patient's response and safety interventions per exercise log. Progress towards goals as expected. Plan for Next Visit: Treatment Visit with focus on strength and stability per patient tolerance. Cynthia Kwong PTA STATE LICENSE, [id number] documented in this encounter* Cynthia Kwong PTA - 08/11/2019 10:45 AM EDT [facility] TREAT[facility] NOTE Today's Date 08/11/2019 Patient Name: Ayleen Millan Date of : 1940 Current Visit #: 10 Authorized Visits: 100 Case Name: low back pain History: Pre-Treatment Pain Scale: 0 Symptoms: gradually improved Functional Diagnosis: 1. Low back pain due to bilateral sciatica Clinical Information: Subjective: Patient denies increased symptoms following last session. Objective Completed exercises as charted. Able to increase speed and time on treadmill for improved endurance. Treatments: Physical Therapy Exercise Log - 08/11/19 1032 OTHER Notes Low Back Pain Therapeutic Exercise ([id number]) Intervention -- Parameters Nustep L1.5 10 minutes Intervention -- Parameters -- Intervention -- Parameters standing calf stretch 10x10 bilat Intervention Sink exer 10 times each Parameters -- Intervention supine hip extension stretch off edge of plinth 60 seconds x 1 bilateral Parameters Hamstring stretch sitting edge of table 30 sec each side Intervention Shuttle 62# 15 times Parameters Cybex shld ext, flex 7.5# x 10 each Intervention Cybex trunk rotation 7.5#, lat pulldown 30#, abd 30#, back ext 60# x 15 each Parameters sit to stand from plinth x 10 Intervention Treadmill 2.0 mph x 7 min PT Treatment Times Therex Total Time 35 Direct Treatment Time 35 Total Treatment Time 40 Goals: Physical Therapy Ortho Goals: The patient will be able to demonstrate good body mechanics without low back pain. The patient will reduce pain with standing by 80% in 6 weeks. The patient will return to normal ADL without pain in 6 weeks. Patient Education: Verbal HEP with patient demonstrated understanding. Post-Treatment Pain Scale: 0 Assessment: Patient had an expected response to treatment. Gradual progress with strength and endurance. Patient reports his legs were tired following treadmill. Some soreness with back extension on Cybex. Skilled Intervention demonstrated by modifications of treatment per exercise log including increased intensity and assessment of patient's response and safety interventions per exercise log. Progress towards goals as expected. Plan for Next Visit: Treatment Visit with focus on core strength and endurance per patient tolerance. Cynthia Kwong PTA STATE LICENSE, [id number] documented in this encounter Reason for Referral Status Reason Specialty Diagnoses / Procedures Referred By Contact Referred To Contact Pending Review Cardiology Diagnoses Hypertrophic cardiomyopathy (HCC) Procedures Holter monitor - 24 hour Gael Nelson MD [address] [facility] [address] [place] [address] Status Reason Specialty Diagnoses / Procedures Referred By Contact Referred To Contact Pending Review Cardiology Diagnoses 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) Other ill-defined heart diseases Orthostatic dizziness Procedures Echocardiogram stress test Gael Nelson MD [address] [facility] [address] [place] [id number] Status Reason Specialty Diagnoses / Procedures Re ferred By Contact Referred To Contact Authorized Radiology Diagnoses Hypertrophic cardiomyopathy (HCC) Procedures MR Cardiac Morphology With And Without Contrast with Velocity Flow Melanie Burciaga MD [address] [place] [address] Status Reason Specialty Diagnoses / Procedures Referred By Contact Referred To Contact Authorized Cardiology Diagnoses Hypertension, unspecified type Procedures ECG 12 lead Melanie Burciaga MD [address] [place] [address] Status Reason Specialty Diagnoses / Procedures Re ferred By Contact Referred To Contact Closed Radiology Diagnoses Hypertrophic cardiomyopathy (HCC) Procedures MR Cardiac Morphology With And Without Contrast with Velocity Flow Melanie Burciaga MD [address] [place] [address] Status Reason Specialty Diagnoses / Procedures Referred By Contact Referred To Contact Pending Review Cardiology Diagnoses Palpitations Procedures Cardiac event monitor Melanie Burciaga MD [address] [place] [address] Specialty Diagnoses / Procedures Referred By Contac t Referred To Contact Cardiology Diagnoses Preop cardiovascular exam Procedures ECG 12 lead Melanie Burciaga MD [address] [place] [address] Referral ID Status Reason Start Date Expiration Date V isits Requested Visits Authorized [id number] Authorized 07/25/2021 07/25/2022 1 1 Specialty Diagnoses / Procedures Referred By Contac t Referred To Contact CT IMAGING Diagnoses Bloating Weight loss Abdominal distension (gaseous) Generalized abdominal pain Procedures CT ABD/PEL W IVCON CT ABD & PELVIS W/CONTRAST Beverly Bernabe APRN.[facility]ER [address] [place] [address] Ct Imaging Referral ID Status Reason Start Date Expiration Date Visits Requested Visits Authorized [id number] Pending Review Auto-Generat ed Referral 03/13/2022 04/12/2023 1 1 Referral ID Status Reason Start Date Expiration Date V isits Requested Visits Authorized [id number] Closed Auto-Generate d Referral 03/13/2022 04/12/2023 1 1 Specialty Diagnoses / Procedures Referred By Contac t Referred To Contact Cardiology Diagnoses Essential hypertension Hypertrophic non-obstructive cardiomyopathy (HCC) Procedures Echocardiogram complete Melanie Burciaga MD [address] [place] [address] Referral ID Status Reason Start Date Expiration Date V isits Requested Visits Authorized [id number] New Request 07/02/2022 07/02/2023 1 1 Specialty Diagnoses / Procedures Referred By Contac t Referred To Contact Cardiology Diagnoses Essential hypertension Procedures ECG 12 lead Melanie Burciaga MD [address] [place] [address] Referral ID Status Reason Start Date Expiration Date V isits Requested Visits Authorized [id number] Authorized 07/02/2022 07/02/2023 1 1 Specialty Diagnoses / Procedures Referred By Contac t Referred To Contact Urology Diagnoses Benign prostatic hyperplasia with incomplete bladder emptying Procedures CONSULT TO UROLOGY Alonso Wheat MD [address] [place] [address] Referral ID Status Reason Start Date Expiration Date Visits Requested Visits Authorized [id number] Ref Not Required PCP Requested Referral 2 09/10/2023 1 1 Specialty Diagnoses / Procedures Referred By Contac t Referred To Contact CT IMAGING Diagnoses Interstitial pulmonary disease (HCC) Procedures CT CHEST WO IVCON DIAGNOSTIC COMPUTED TOMOGRAPHY THORAX W/O CNTRSSvetlana Barry MD [address] [place] [address] [address] [address] Imaging Referral ID Status Reason Start Date Expiration Date Visits Requested Visits Authorized [id number] Authorized Auto-Generat ed Referral 11/09/2023 1 1 Specialty Diagnoses / Procedures Referred By Contac t Referred To Contact Cardiology Diagnoses Dizziness Procedures Cardiac event monitor Yamel Chang, [employer]ER [address] [place] [address] Referral ID Status Reason Start Date Expiration Date V isits Requested Visits Authorized [id number] Authorized 01/29/2023 01/29/2024 1 1 Specialty Diagnoses / Procedures Referred By Contac t Referred To Contact CT IMAGING Diagnoses Interstitial pulmonary disease (HCC) Procedures CT CHEST WO IVCON DIAGNOSTIC COMPUTED TOMOGRAPHY THORAX W/O CNTRST Melanie Kahn PA-C [address] [place] [address] Ct Imaging Referral ID Status Reason Start Date Expiration Date Visits Requested Visits Authorized [id number] Authorized Auto-Generat ed Referral 09/23/2023 04/30/2024 1 1 Specialty Diagnoses / Procedures Referred By Contac t Referred To Contact [facility] Diagnoses Interstitial pulmonary disease (HCC) Procedures LUNG DIFFUSION CAPACITY (DLCO) DIFFUSING CAPACITY Melanie Kahn PA-C [address] [place] [address] [facility] [place] [address] [place] [address] Referral ID Status Reason Start Date Expiration Date Visits Requested Visits Authorized [id number] Authorized Auto-Generat ed Referral 04/01/2023 04/30/2024 1 1 Specialty Diagnoses / Procedures Referred By Contac t Referred To Contact [facility] Diagnoses Interstitial pulmonary disease (HCC) Procedures LUNG VOLUMES Melanie Kahn PA-C [address] [place] [address] [facility] [address] [place] [address] Referral ID Status Reason Start Date Expiration Date Visits Requested Visits Authorized [id number] Authorized Auto-Generat ed Referral 04/01/2023 04/30/2024 1 1 Specialty Diagnoses / Procedures Referred By Contac t Referred To Contact [facility] Diagnoses Interstitial pulmonary disease (HCC) Procedures SPIROMETRY WITH DILATOR IF OBSTRUCTED BRNCDILAT RSPSE SPMTRY PRE&POST-BRNCDILAT ADMMelanie Rodriguez PA-C [address] [place] [address] [facility] [address] [place] [address] Referral ID Status Reason Start Date Expiration Date Visits Requested Visits Authorized [id number] Authorized Auto-Generat ed Referral 04/01/2023 04/30/2024 1 1 Specialty Diagnoses / Procedures Referred By Contac t Referred To Contact Cardiology Diagnoses RBBB (right bundle branch block with left anterior fascicular block) Procedures ECG 12 lead Melanie Burciaga MD [address] [place] [address] Referral ID Status Reason Start Date Expiration Date V isits Requested Visits Authorized [id number] Authorized 08/05/2023 08/04/2024 1 1 Specialty Diagnoses / Procedures Referred By Contac t Referred To Contact CT IMAGING Diagnoses Interstitial pulmonary disease (HCC) Procedures CT CHEST WO IVCON DIAGNOSTIC COMPUTED TOMOGRAPHY THORAX W/O Svetlana Conway MD [address] [facility] [place] [address] Ct Imaging [facility] Referral ID Status Reason Start Date Expiration Date V isits Requested Visits Authorized [id number] Closed Auto-Generate d Referral 10/10/2022 11/09/2023 1 1 Specialty Diagnoses / Procedures Referred By Contac t Referred To Contact Cardiology Diagnoses Hypertrophic cardiomyopathy (HCC) Edema, unspecified type Local edema Procedures Ultrasound duplex venous leg left Melanie Burciaga MD [address] [place] [address] Referral ID Status Reason Start Date Expiration Date Visits Re quested Visits Authorized [id number] Closed 02/11/2024 02/10/2025 1 1 Specialty Diagnoses / Procedures Referred By Contac t Referred To Contact Cardiology Diagnoses Hypertrophic cardiomyopathy (HCC) Procedures Echocardiogram complete Melanie Burciaga MD [address] [place] [address] Referral ID Status Reason Start Date Expiration Date V isits Requested Visits Authorized [id number] New Request 02/11/2024 02/10/2025 1 1 Referral ID Status Reason Start Date Expiration Date Visits Requested Visits Authorized [id number] Authorized Auto-Generat ed Referral 05/21/2025 1 1 Specialty Diagnoses / Procedures Referred By Contac t Referred To Contact [facility] Diagnoses ILD (interstitial lung disease) (HCC) Procedures LUNG DIFFUSION CAPACITY (DLCO) DIFFUSING CAPACITY Svetlana Jaeger MD [address] [place] [address] [address] Referral ID Status Reason Start Date Expiration Date Visits Requested Visits Authorized [id number] Authorized Auto-Generat ed Referral 04/21/2024 05/21/2025 1 1 Specialty Diagnoses / Procedures Referred By Contac t Referred To Contact [facility] Diagnoses ILD (interstitial lung disease) (HCC) Procedures LUNG VOLUMES Svetlana Jaeger MD [address] [place] [address] [address] Referral ID Status Reason Start Date Expiration Date Visits Requested Visits Authorized [id number] Authorized Auto-Generat ed Referral 04/21/2024 05/21/2025 1 1 Specialty Diagnoses / Procedures Referred By Contac t Referred To Contact [facility] Diagnoses ILD (interstitial lung disease) (HCC) Procedures SPIROMETRY BASELINE ONLY SPMTRY W/VC EXPIRATORY CARLOS W/WO MXML VOL VNTJ Svetlana Jaeger MD [address] [place] [address] [facility] [place] [address] [place] [address] Referral ID Status Reason Start Date Expiration Date Visits Requested Visits Authorized [id number] Authorized Auto-Generat ed Referral 04/21/2024 05/21/2025 1 1 Specialty Diagnoses / Procedures Referred By Ping loyd Referred To Contact Urology Diagnoses Gross hematuria Procedures CONSULT TO UROLOGY Alonso Wheat MD [address] [place] [address] Referral ID Status Reason Start Date Expiration Date Visits Requested Visits Authorized [id number] Ref Not Required PCP Requested Referral 09/21/2025 1 1 Additional Source Comments (unrecognized sect ion and content) No Status Records FoundNo Status Records FoundNo Status Records FoundNo Status Records FoundNo Status Records FoundNo Status Records FoundNo Status Records FoundNo Status Records FoundNo Status Records Found INFORMATION SOURCE (unrecogn ized section and content) DATE CREATED AUTHOR 05/19/2018 [facility] DATE CREATED AUTHOR AUTHOR'S ORGANIZ ATION 05/19/2018 [facility] DATE CREATED AUTHOR AUTHOR'S ORGANIZ ATION 10/07/2018 [facility] DATE CREATED AUTHOR AUTHOR'S ORGANIZ ATION 07/19/2022 [facility] DATE CREATED AUTHOR AUTHOR'S ORGANIZ ATION 03/01/2024 [facility] DATE CREATED AUTHOR AUTHOR'S ORGANIZ ATION 05/28/2025 [facility] DATE CREATED AUTHOR AUTHOR'S ORGANIZ ATION 06/09/2025 [facility] DATE CREATED AUTHOR AUTHOR'S ORGANIZ ATION 06/12/2025 [facility] DATE CREATED AUTHOR AUTHOR'S ORGANIZ ATION 07/05/2025 [facility] Reason for Visit (unrecogniz ed section and content) Reason Comments Physical Therapy Status Reason Specialty Diagnoses / Procedures Referred By Contact Referred To Contact Authorized Rehabilitation Diagnoses Low back pain, unspecified back pain laterality, unspecified chronicity, with sciatica presence unspecified Lumbar radiculopathy System, Provider Not In Rehab [place] [address] Reason Comments Establish Care 1 year f/u Status Reason Specialty Diagnoses / Procedures Referre d By Contact Referred To Contact Reason Onset Date Comments Medication Refill 12/31/2020 Status Reason Specialty Diagnoses / Procedures Referred By Contact Referred To Contact Pending Review Cardiology Diagnoses Palpitations Procedures Cardiac event monitor Melanie Burciaga MD [address] [place] [address] Status Reason Specialty Diagnoses / Procedures Referred By Contact Referred To Contact Authorized Rehabilitation Diagnoses Low back pain, unspecified back pain laterality, unspecified chronicity, with sciatica presence unspecified Lumbar radiculopathy System, Provider Not In Rehab Pt [facility] [address] [place] [address] Reason Comments Follow-up Reason Onset Date Comments Medication Refill 08/06/2021 Reason Onset Date Comments Medication Refill 02/17/2022 Reason Comments F/U 6 months Reason Comments Gas with every meal stat es burping Abdominal Pain off and on with emery gestion Reason Comments Results Reason Comments Follow-up Pt states no cardiac concerns today. Reason Comments Radiology CT Specialty Diagnoses / Procedures Referred By Contac t Referred To Contact CT IMAGING Diagnoses Bloating Weight loss Abdominal distension (gaseous) Generalized abdominal pain Procedures CT ABD/PEL W IVCON CT ABD & PELVIS W/CONTRAST Beverly Bernabe APRN.[facility] [address] [place] [address] Ct Imaging Referral ID Status Reason Start Date Expiration Date V isits Requested Visits Authorized [id number] Closed Auto-Generate d Referral 03/13/2022 04/12/2023 1 1 Reason Comments Results Reason Comments Orders Reason Comments Follow-up Patient c/o lower ex tremity edema/ dizziness/ fluttering Reason Onset Date Comments Refill Request 07/06/2022 Reason Onset Date Comments Immunizations 07/29/2022 Flu vaccination Reason Comments Medication Refill Reason Comments Medicare Wellness Exam Reason Comments Future Appointment Reason Comments Recheck Reason Comments Spirometry Specialty Diagnoses / Procedures Referred By Contac t Referred To Contact [facility] Diagnoses ILD (interstitial lung disease) (HCC) Procedures SPIROMETRY WITH DILATOR IF OBSTRUCTED BRNCDILAT RSPSE SPMTRY PRE&POST-BRNCDILAT ADMSvetlana John MD [address] [place] [address] [address] Referral ID Status Reason Start Date Expiration Date V isits Requested Visits Authorized [id number] Closed Auto-Generate d Referral 03/03/2022 04/02/2023 1 1 Specialty Diagnoses / Procedures Referred By Contac t Referred To Contact [facility] Diagnoses ILD (interstitial lung disease) ([facility]) Procedures LUNG VOLUMES Svetlana Jaeger MD [address] [place] [address] [address] Referral ID Status Reason Start Date Expiration Date V isits Requested Visits Authorized [id number] Closed Auto-Generate d Referral 03/03/2022 04/02/2023 1 1 Specialty Diagnoses / Procedures Referred By Contac t Referred To [facility] Diagnoses ILD (interstitial lung disease) ([facility]) Procedures LUNG DIFFUSION CAPACITY (DLCO) DIFFUSING CAPACITY Svetlana Jaeger MD [address] [place] [id number] [address] [address] Referral ID Status Reason Start Date Expiration Date V isits Requested Visits Authorized [id number] Closed Auto-Generate d Referral 03/03/2022 04/02/2023 1 1 Reason Comments Established Patient Follow-Up ILD Reason Onset Date Comments Medication Refill 11/26/2022 Reason Onset Date Comments Refill Request 12/29/2022 Reason Comments Cough Congestion Reason Onset Date Comments Refill Request 01/18/2023 Reason Comments Follow-up 6 month follow up/Di ckerson/No cardiac concerns today Reason Comments F/U 6 months Reason Comments Established Patient ILD Reason Onset Date Comments Medication Refill 05/10/2023 Reason Comments Follow-up 6 mo/c/o chest pain x a couple months Reason Onset Date Comments Medication Refill 08/24/2023 Reason Comments Appointment Specialty Diagnoses / Procedures Referred By Contac t Referred To Contact [facility] Diagnoses Interstitial pulmonary disease (HCC) Procedures SPIROMETRY WITH DILATOR IF OBSTRUCTED BRNCDILAT RSPSE SPMTRY PRE&POST-BRNCDILAT Melanie Blanchard, PA-C [address] [place] [address] [address] Referral ID Status Reason Start Date Expiration Date V isits Requested Visits Authorized [id number] Closed Auto-Generate d Referral 04/01/2023 04/30/2024 1 1 Specialty Diagnoses / Procedures Referred By Contac t Referred To Contact [facility] Diagnoses Interstitial pulmonary disease (HCC) Procedures LUNG DIFFUSION CAPACITY (DLCO) DIFFUSING CAPACITY Melanie Kahn PA-C [address] [place] [address] [address] Referral ID Status Reason Start Date Expiration Date V isits Requested Visits Authorized [id number] Closed Auto-Generate d Referral 04/01/2023 04/30/2024 1 1 Specialty Diagnoses / Procedures Referred By Contac t Referred To [facility] Diagnoses Interstitial pulmonary disease (HCC) Procedures LUNG VOLUMES Melanie Kahn PA-C [address] [place] [address] [address] Referral ID Status Reason Start Date Expiration Date V isits Requested Visits Authorized [id number] Closed Auto-Generate d Referral 04/01/2023 04/30/2024 1 1 Specialty Diagnoses / Procedures Referred By Contac t Referred To Contact CT IMAGING Diagnoses Interstitial pulmonary disease (HCC) Procedures CT CHEST WO IVCON DIAGNOSTIC COMPUTED TOMOGRAPHY THORAX W/O CNTRST Svetlana Jaeger MD [address] [facility] [place] [place] [address] [place] [address] Referral ID Status Reason Start Date Expiration Date V isits Requested Visits Authorized [id number] Closed Auto-Generate d Referral 10/10/2022 11/09/2023 1 1 Specialty Diagnoses / Procedures Referred By Contac t Referred To Contact CT IMAGING Diagnoses Interstitial pulmonary disease (HCC) Procedures CT CHEST WO IVCON DIAGNOSTIC COMPUTED TOMOGRAPHY THORAX W/O CNTRST Melanie Kahn PA-C [address] [facility] [place] [address] Ct Imaging [facility] Referral ID Status Reason Start Date Expiration Date V isits Requested Visits Authorized [id number] Closed Auto-Generate d Referral 09/23/2023 04/30/2024 1 1 Reason Comments Established Patient ILD Reason Onset Date Comments Medication Refill 11/01/2023 Reason Onset Date Comments Medication Refill 11/02/2023 Reason Onset Date Comments Refill Request 11/01/2023 Reason Onset Date Comments Refill Request 12/27/2023 Reason Onset Date Comments Refill Request 01/03/2024 Reason Comments Follow-up Patient c/o alfonso lowe r extremity swelling, worse in the left./ occasional sob and chest discomfort Reason Onset Date Comments Refill Request 03/27/2024 Reason Comments Established Patient six month follow up Reason Onset Date Comments Refill Request 04/22/2024 Reason Onset Date Comments Medication Refill 07/31/2024 Reason Comments Cough Reason Onset Date Comments Refill Request 09/04/2024 Reason Comments Medicare Wellness Exam F/U 6 months Reason Comments Patient Question Specialty Diagnoses / Procedures Referred By Contac t Referred To Contact [facility] Diagnoses ILD (interstitial lung disease) (HCC) Procedures SPIROMETRY BASELINE ONLY SPMTRY W/VC EXPIRATORY CARLOS W/WO MXML VOL VNTJ Svetlana Jaeger MD [address] [place] [address] [address] Referral ID Status Reason Start Date Expiration Date V isits Requested Visits Authorized [id number] Closed Auto-Generate d Referral 04/21/2024 05/21/2025 1 1 Specialty Diagnoses / Procedures Referred By Contac t Referred To Contact [facility] Diagnoses ILD (interstitial lung disease) (HCC) Procedures LUNG DIFFUSION CAPACITY (DLCO) DIFFUSING CAPACITY Svetlana Jaeger MD [address] [place] [address] [address] Referral ID Status Reason Start Date Expiration Date V isits Requested Visits Authorized [id number] Closed Auto-Generate d Referral 04/21/2024 05/21/2025 1 1 Specialty Diagnoses / Procedures Referred By Contac t Referred To Contact [facility] Diagnoses ILD (interstitial lung disease) (HCC) Procedures LUNG VOLUMES Svetlana Jaeger MD [address] [facility] [place] [address] [facility] [place] [address] [place] [address] Referral ID Status Reason Start Date Expiration Date V isits Requested Visits Authorized [id number] Closed Auto-Generate d Referral 04/21/2024 05/21/2025 [address] Specialty Diagnoses / Procedures Referred By Contac t Referred To Contact CT IMAGING Diagnoses Interstitial pulmonary disease (HCC) Procedures CT CHEST WO IVCON DIAGNOSTIC COMPUTED TOMOGRAPHY THORAX W/O CNTRST Svetlana Jaeger MD [address] [place] [address] [place] [address] Referral ID Status Reason Start Date Expiration Date V isits Requested Visits Authorized [id number] Closed Auto-Generate d Referral 10/22/2024 05/21/2025 1 1 Reason Comments Follow-up Reason Onset Date Comments Medication Refill 10/30/2024 Reason Comments bronchiectasis Pulmonary Fibrosis Reason Onset Date Comments Medication Refill 11/21/2024 Reason Onset Date Comments Refill Request 12/18/2024 Reason Onset Date Comments Refill Request 01/22/2025 Reason Onset Date Comments Population Health Navigation Outreach 02/23/2025 [place]/[facility]/ACO Reason Onset Date Comments Refill Request 05/18/2025 Reason Comments Follow-up Patient c/o lighthea dedness Reason Onset Date Comments Refill Request 06/02/2025 Reason Comments Established Patient 6 month follow up IL D Care Teams (unrecognized sec tion and content) Master Plumber Relationship Specialty Start Date End Date Alonso Wheat MD [address] [place], [place] [id number] PCP - General 10/29/12 Gael Nelson MD [address] [id number] Consulting Physician Cardiology 09/08/19 Master Plumber Relationship Specialty Start Date End Date Alonso Wheat MD [address] [place] [address] PCP - General 10/29/12 [place] [address] [place] [address] Consulting Physician Cardiology 09/08/19 Master Plumber Relationship Specialty Start Date End Date Alonso Wheat MD [address] [place] [address] PCP - General 10/29/12 Gael Nelson MD [address] [place], [place] [id number] Consulting Physician Cardiology 09/08/19 Master Plumber Relationship Specialty Start Date End Date Alonso Wheat MD [address] [place] [address] PCP - General 10/29/12 Gael Nelson MD [address] [address] Consulting Physician Cardiology 09/08/19 Master Plumber Relationship Specialty Start Date End Date Alonso Wheat MD [address] [place] [address] PCP - General 03/28/04 Herminia Reed MD, [address] [place] [address] Physician Radiation Oncology 05/21/16 Master Plumber Relationship Specialty Start Date End Date Alonso Wheat MD [address] [place] [address] PCP - General 03/28/04 Herminia Reed MD, [address] [facility] [place] [address] Physician Radiation Oncology 05/21/16 Master Plumber Relationship Specialty Start Date End Date Alonso Wheat MD [address] [facility] [place] [address] PCP - General 03/28/04 Herminia Reed MD, [address] [facility] [place] [address] Physician Radiation Oncology 05/21/16 Master Plumber Relationship Specialty Start Date End Date Alonso Wheat MD [address] [facility] [place] [address] PCP - General 03/28/04 Herminia Reed MD, [address] [facility] [place] [address] Physician Radiation Oncology 05/21/16 Master Plumber Relationship Specialty Start Date End Date Alonso Wheat MD [address] [place] [address] PCP - General 10/29/12 Gael Nelson MD [address] [address] Consulting Physician Cardiology 09/08/19 Master Plumber Relationship Specialty Start Date End Date Alonso Wheat MD [address] [facility] [place] [address] PCP - General 03/28/04 Herminia Reed MD, [address] [facility] [place] [address] Physician Radiation Oncology 05/21/16 Master Plumber Relationship Specialty Start Date End Date Alonso Wheat MD [address] [facility] [place] [address] PCP - General 03/28/04 Herminia Reed MD, [address] [facility] [place] [address] Physician Radiation Oncology 05/21/16 Master Plumber Relationship Specialty Start Date End Date Alonso Wheat MD [address] [facility] [place] [address] PCP - General 03/28/04 Herminia Reed MD, [address] [facility] [place] [address] Physician Radiation Oncology 05/21/16 Master Plumber Relationship Specialty Start Date End Date Alonso Wheat MD [address] [facility] [place] [address] PCP - General 10/29/12 Gael Nelson MD [address] [address] Consulting Physician Cardiology 09/08/19 Master Plumber Relationship Specialty Start Date End Date Alonso Wheat MD [address] [facility] [place] [address] PCP - General 03/28/04 Herminia Reed MD, [address] [facility] [place] [address] Physician Radiation Oncology 05/21/16 Master Plumber Relationship Specialty Start Date End Date Alonso Wheat MD [address] [facility] [place] [address] PCP - General 03/28/04 Herminia Rede MD, [address] [facility] [place] [address] Physician Radiation Oncology 05/21/16 Master Plumber Relationship Specialty Start Date End Date Alonso Wheat MD [address] [facility] [place] [address] PCP - General 10/29/12 Gael Nelson MD [address] [facility] [address] [phone] Consulting Physician Cardiology 09/08/19 Master Plumber Relationship Specialty Start Date End Date Alonso Wheat MD [address] [facility] [place] [address] PCP - General 03/28/04 Herminia Reed MD, [address] [facility] [place] [address] Physician Radiation Oncology 05/21/16 Master Plumber Relationship Specialty Start Date End Date Alonso Wheat MD [address] [facility] [place] [address] PCP - General 03/28/04 Herminia Reed MD, [address] [facility] [place] [address] Physician Radiation Oncology 05/21/16 Master Plumber Relationship Specialty Start Date End Date Alonso Wheat MD [address] [facility] [place] [address] PCP - General 03/28/04 Herminia Reed MD, [address] [facility] [place] [address] Physician Radiation Oncology 05/21/16 Master Plumber Relationship Specialty Start Date End Date Alonso Wheat MD [address] [facility] [place] [address] PCP - General 03/28/04 Herminia Reed MD, [address] [facility] [place] [address] Physician Radiation Oncology 05/21/16 Master Plumber Relationship Specialty Start Date End Date Alonso Wheat MD [address] [facility] [place] [address] PCP - General 03/28/04 Herminia Reed MD, [address] [facility] [place] [address] Physician Radiation Oncology 05/21/16 Master Plumber Relationship Specialty Start Date End Date Alonso Wheat MD [address] [facility] [place] [address] PCP - General 10/29/12 Gael Nelson MD [address] [address] Consulting Physician Cardiology 09/08/19 Master Plumber Relationship Specialty Start Date End Date Alonso Wheat MD [address] [facility] [place] [address] PCP - General 03/28/04 Herminia Reed MD, [address] [facility] [place] [address] Physician Radiation Oncology 05/21/16 Master Plumber Relationship Specialty Start Date End Date Alonso Wheat MD [address] [facility] [place] [address] PCP - General 10/29/12 Gael Nelson MD [address] [address] Consulting Physician Cardiology 09/08/19 Master Plumber Relationship Specialty Start Date End Date Alonso Wheat MD [address] [place], [place] [address]331 PCP - General 03/28/04 Hermniia Reed MD, [address] [place], [place] [address] Physician Radiation Oncology 05/21/16 Master Plumber Relationship Specialty Start Date End Date Alonso Wheat MD [address] [place], [place] [address]901 PCP - General 10/29/12 Gael Nelson MD 3705 [facility] [address] [place] [address] Consulting Physician Cardiology 09/08/19 Master Plumber Relationship Specialty Start Date End Date Alonso Wheat MD [address] [place], [place] [address] PCP - General 10/29/12 Gael Nelson MD 3705 [facility] 100 [place] [address] Consulting Physician Cardiology 09/08/19 Master Plumber Relationship Specialty Start Date End Date Alonso Wheat MD [address] [place], [place] [id number] PCP - General 10/29/12 Master Plumber Relationship Specialty Start Date End Date Alonso Wheat MD [address] [place], [place] [id number] PCP - General 03/28/04 Herminia Reed MD, [address] [place] [address] Physician Radiation Oncology 05/21/16 Master Plumber Relationship Specialty Start Date End Date Alonso Wheat MD [address]40 [facility] [place] [address] PCP - General 03/28/04 Herminia Reed MD, [address] [place] [address] Physician Radiation Oncology 05/21/16 Master Plumber Relationship Specialty Start Date End Date Alonso Wheat MD 1740 [facility] [place] [address] PCP - General 03/28/04 Herminia Reed MD, [address] [place] [address] Physician Radiation Oncology 05/21/16 Master Plumber Relationship Specialty Start Date End Date Alonso Wheat MD [address] [facility] [place] [address] PCP - General 03/28/04 Herminia Reed MD, [address] [place] [address] Physician Radiation Oncology 05/21/16 Master Plumber Relationship Specialty Start Date End Date Alonso Wheat MD [address] [place] [address] PCP - General 03/28/04 Herminia Reed MD, [address] [place] [address] Physician Radiation Oncology 05/21/16 Master Plumber Relationship Specialty Start Date End Date Alonso Wheat MD [address] [place] [address] PCP - General 03/28/04 Herminia Reed MD, [address] [place] [address] Physician Radiation Oncology 05/21/16 Master Plumber Relationship Specialty Start Date End Date Alonso Wheat MD [address] [place] [address] PCP - General 03/28/04 Herminia Reed MD, [address] [place] [address] Physician Radiation Oncology 05/21/16 Master Plumber Relationship Specialty Start Date End Date Alonso Wheat MD [address] [place] [address] PCP - General 10/29/12 Master Plumber Relationship Specialty Start Date End Date Alonso Wheat MD [address] [place], [place] [address] PCP - General 10/29/12 Master Plumber Relationship Specialty Start Date End Date Alonso Wheat MD [address] [place] [address] PCP - General 03/28/04 Herminia Reed MD, [address] [facility] [place] [address] Physician Radiation Oncology 05/21/16 Master Plumber Relationship Specialty Start Date End Date Alonso Wheat MD [address] [facility] [place] [address] PCP - General 03/28/04 Herminia Reed MD [address] [facility] [place] [address] Physician Radiation Oncology 05/21/16 Master Plumber Relationship Specialty Start Date End Date Alonso Wheat MD [address] [place] [address] PCP - General 03/28/04 Herminia Reed MD [address] [facility] [place] [address] Physician Radiation Oncology 05/21/16 Master Plumber Relationship Specialty Start Date End Date Alonso Wheat MD [address] [place] [address] PCP - General 10/29/12 Master Plumber Relationship Specialty Start Date End Date Alonso Wheat MD [address] [facility] [place] [address] PCP - General 03/28/04 Herminia Reed MD [address] [facility] [place] [address] Physician Radiation Oncology 05/21/16 Master Plumber Relationship Specialty Start Date End Date Alonso Wheat MD [address] [facility] [place] [address] PCP - General 03/28/04 Herminia Reed MD [address] [place] [address] Physician Radiation Oncology 05/21/16 Master Plumber Relationship Specialty Start Date End Date Alonso Wheat MD [address] [facility] [place] [address] PCP - General 03/28/04 Herminia Reed MD [address] [address] Physician Radiation Oncology 05/21/16 Master Plumber Relationship Specialty Start Date End Date Alonso Wheat MD [address] [facility] [place] [address] PCP - General 03/28/04 Herminia Reed MD [address] [address] Physician Radiation Oncology 05/21/16 Master Plumber Relationship Specialty Start Date End Date Alonso Wheat MD [address] [facility] [place] [address] PCP - General 03/28/04 Herminia Reed MD [address] [address] Physician Radiation Oncology 05/21/16 Master Plumber Relationship Specialty Start Date End Date Alonso Wheat MD [address] [facility] [place] [address] PCP - General 10/29/12 Master Plumber Relationship Specialty Start Date End Date Alonso Wheat MD [address] [place] [address] PCP - General 03/28/04 Herminia Reed MD [address] [place] [address] Physician Radiation Oncology 05/21/16 Master Plumber Relationship Specialty Start Date End Date Alonso Wheat MD [address] [place] [address] PCP - General 03/28/04 Herminia Reed MD [address] [place] [address] Physician Radiation Oncology 05/21/16 Master Plumber Relationship Specialty Start Date End Date Alonso Wheat MD [address] [place] [address] PCP - General 03/28/04 Herminia Reed MD [address] [place] [address] Physician Radiation Oncology 05/21/16 Master Plumber Relationship Specialty Start Date End Date Alonso Wheat MD [address] [place] [address] PCP - General 03/28/04 Herminia Reed MD [address] [place] [address] Physician Radiation Oncology 05/21/16 Master Plumber Relationship Specialty Start Date End Date Alonso Wheat MD [address] [place] [address] PCP - General 03/28/04 Herminia Reed MD [address] [place] [address] Physician Radiation Oncology 05/21/16 Master Plumber Relationship Specialty Start Date End Date Alonso Wheat MD [address] [place] [address] PCP - General 03/28/04 Herminia Reed MD [address] [place] [address] Physician Radiation Oncology 05/21/16 Master Plumber Relationship Specialty Start Date End Date Alonso Wheat MD [address] [place] [address] PCP - General 03/28/04 Herminia Reed MD [address] [place] [address] Physician Radiation Oncology 05/21/16 Master Plumber Relationship Specialty Start Date End Date Alonso Wheat MD [address] [place] [address] PCP - General 10/29/12 Master Plumber Relationship Specialty Start Date End Date Alonso Wheat MD [address] [place] [address] PCP - General 10/29/12 Master Plumber Relationship Specialty Start Date End Date Alonso Wheat MD [address] [place], [place] [address]10[address] PCP - General 10/29/12 Master Plumber Relationship Specialty Start Date End Date Alonso Wheat MD [address] [place], [place] [address]3331 PCP - General 10/29/12 Master Plumber Relationship Specialty Start Date End Date Alonso Wheat MD [address] [place], [place] [address]24[address] PCP - General 03/28/04 Herminia Reed MD [address] [place], [place] [address]18[address] Physician Radiation Oncology 05/21/16 Romelia Renee, TRANSPORTATION SECURITY OFFICER.[employer] [address] [place], [place] [address]60[address] Ice Grinder Internal Medicine 10/31/24 Master Plumber Relationship Specialty Start Date End Date Alonso Wheat MD [address] [place], [place] [address] PCP - General 10/29/12 Master Plumber Relationship Specialty Start Date End Date Alonso Wheat MD [address] [place], [place] [address]39[address] PCP - General 03/28/04 Herminia Reed MD [address] [place] [address] Physician Radiation Oncology 05/21/16 Romelia Renee, TRANSPORTATION SECURITY OFFICER.WOOD BORER [address] [place] [address] Ice Grinder Internal Medicine 10/31/24 Master Plumber Relationship Specialty Start Date End Date Alonso Wheat MD [address] [place] [address] PCP - General 03/28/04 Herminia Reed MD [address] [place] [address] Physician Radiation Oncology 05/21/16 Romelia Renee, TRANSPORTATION SECURITY OFFICER.WOOD BORER [address] [place] [address] Ice Grinder Internal Medicine 10/31/24 Master Plumber Relationship Specialty Start Date End Date Alonso Wheat MD [address] [place] [address] PCP - General 03/28/04 Herminia Reed MD [address] [place] [address] Physician Radiation Oncology 05/21/16 Romelia Renee, TRANSPORTATION SECURITY OFFICER.WOOD BORER [address] [place] [address] Ice Grinder Internal Medicine 10/31/24 Master Plumber Relationship Specialty Start Date End Date Alonso Wheat MD [address] [place] [address] PCP - General 03/28/04 Herminia Reed MD [address] [place] [address] Physician Radiation Oncology 05/21/16 Romelia Renee, TRANSPORTATION SECURITY OFFICER.WO[employer] BORER [address] [place] [address] Ice Grinder Internal Medicine 10/31/24 Team Status: Active Member Role Status Dates Dr. Alonso Wheat MD Family Provider Active Dr. Alonso Wheat MD Primary Care Provider Active Team Status: Inactive Member Role Status Dates Dr. Alonso Wheat MD Primary Care Provider Active Start: April 27, 2025 End: April 27, 2025 Dr. Jared Marques MD Attending Provider Active Start: April 27, 2025 End: April 27, 2025 Dr. Jared Marques MD Referring Provider Active Start: April 27, 2025 End: April 27, 2025 Master Plumber Relationship Specialty Start Date End Date Alonso Wheat MD [address] [place] [address] PCP - General 03/28/04 Herminia Reed MD [address] [place] [address] Physician Radiation Oncology 05/21/16 Romelia Renee, TRANSPORTATION SECURITY OFFICER.WOOD BORER [address] [place] [address] Ice Grinder Internal Medicine 10/31/24 Master Plumber Relationship Specialty Start Date End Date Alonso Wheat MD [address] [place] [address] PCP - General 03/28/04 Herminia Reed MD [address] [place] [address] Physician Radiation Oncology 05/21/16 Romelia Renee, TRANSPORTATION SECURITY OFFICER.WOOD BORER [address] [place], [place] [address] Ice Grinder Internal Medicine 10/31/24 Master Plumber Relationship Specialty Start Date End Date Alonso Wheat MD [address] [place], [place] [id number] PCP - General 03/28/04 Herminia Reed MD [address] [place], [place] [address] Physician Radiation Oncology 05/21/16 Romelia Renee, TRANSPORTATION SECURITY OFFICER.WOOD BORER [address] [place], [place] [id number] Ice Grinder Internal Medicine 10/31/24 Source Comments (unrecognize d section and content) In the event this informatio n is protected by the Federal Confidentiality of Alcohol and Drug Abuse Patient Records regulations: The Federal rules restrict any use of the information to criminally investigate or prosecute any alcohol or drug abuse patient.[facility] Center[facility] the event this information is protected by the Federal Confidentiality of Alcohol and Drug Abuse Patient Records regulations: The Federal rules restrict any use of the information to criminally investigate or prosecute any alcohol or drug abuse patient.[facility] CenterIn the event this information is protected by the Federal Confidentiality of Alcohol and Drug Abuse Patient Records regulations: The Federal rules restrict any use of the information to criminally investigate or prosecute any alcohol or drug abuse patient.[facility] CenterIn the event this information is protected by the Federal Confidentiality of Alcohol and Drug Abuse Patient Records regulations: The Federal rules restrict any use of the information to criminally investigate or prosecute any alcohol or drug abuse patient.[facility] CenterIn the event this information is protected by the Federal Confidentiality of Alcohol and Drug Abuse Patient Records regulations: The Federal rules restrict any use of the information to criminally investigate or prosecute any alcohol or drug abuse patient.[facility] CenterIn the event this information is protected by the Federal Confidentiality of Alcohol and Drug Abuse Patient Records regulations: The Federal rules restrict any use of the information to criminally investigate or prosecute any alcohol or drug abuse patient.[facility] CenterIn the event this information is protected by the Federal Confidentiality of Alcohol and Drug Abuse Patient Records regulations: The Federal rules restrict any use of the information to criminally investigate or prosecute any alcohol or drug abuse patient.[facility] CenterIn the event this information is protected by the Federal Confidentiality of Alcohol and Drug Abuse Patient Records regulations: The Federal rules restrict any use of the information to criminally investigate or prosecute any alcohol or drug abuse patient.[facility] CenterIn the event this information is protected by the Federal Confidentiality of Alcohol and Drug Abuse Patient Records regulations: The Federal rules restrict any use of the information to criminally investigate or prosecute any alcohol or drug abuse patient.[facility] CenterIn the event this information is protected by the Federal Confidentiality of Alcohol and Drug Abuse Patient Records regulations: The Federal rules restrict any use of the information to criminally investigate or prosecute any alcohol or drug abuse patient.[facility] CenterIn the event this information is protected by the Federal Confidentiality of Alcohol and Drug Abuse Patient Records regulations: The Federal rules restrict any use of the information to criminally investigate or prosecute any alcohol or drug abuse patient.[facility] CenterIn the event this information is protected by the Federal Confidentiality of Alcohol and Drug Abuse Patient Records regulations: The Federal rules restrict any use of the information to criminally investigate or prosecute any alcohol or drug abuse patient.[facility] CenterIn the event this information is protected by the Federal Confidentiality of Alcohol and Drug Abuse Patient Records regulations: The Federal rules restrict any use of the information to criminally investigate or prosecute any alcohol or drug abuse patient.[facility] CenterIn the event this information is protected by the Federal Confidentiality of Alcohol and Drug Abuse Patient Records regulations: The Federal rules restrict any use of the information to criminally investigate or prosecute any alcohol or drug abuse patient.[facility] CenterIn the event this information is protected by the Federal Confidentiality of Alcohol and Drug Abuse Patient Records regulations: The Federal rules restrict any use of the information to criminally investigate or prosecute any alcohol or drug abuse patient.[facility] CenterIn the event this information is protected by the Federal Confidentiality of Alcohol and Drug Abuse Patient Records regulations: The Federal rules restrict any use of the information to criminally investigate or prosecute any alcohol or drug abuse patient.[facility] CenterIn the event this information is protected by the Federal Confidentiality of Alcohol and Drug Abuse Patient Records regulations: The Federal rules restrict any use of the information to criminally investigate or prosecute any alcohol or drug abuse patient.[facility] CenterIn the event this information is protected by the Federal Confidentiality of Alcohol and Drug Abuse Patient Records regulations: The Federal rules restrict any use of the information to criminally investigate or prosecute any alcohol or drug abuse patient.[facility] CenterIn the event this information is protected by the Federal Confidentiality of Alcohol and Drug Abuse Patient Records regulations: The Federal rules restrict any use of the information to criminally investigate or prosecute any alcohol or drug abuse patient.[facility] CenterIn the event this information is protected by the Federal Confidentiality of Alcohol and Drug Abuse Patient Records regulations: The Federal rules restrict any use of the information to criminally investigate or prosecute any alcohol or drug abuse patient.[facility] CenterIn the event this information is protected by the Federal Confidentiality of Alcohol and Drug Abuse Patient Records regulations: The Federal rules restrict any use of the information to criminally investigate or prosecute any alcohol or drug abuse patient.[facility] CenterIn the event this information is protected by the Federal Confidentiality of Alcohol and Drug Abuse Patient Records regulations: The Federal rules restrict any use of the information to criminally investigate or prosecute any alcohol or drug abuse patient.[facility] CenterIn the event this information is protected by the Federal Confidentiality of Alcohol and Drug Abuse Patient Records regulations: The Federal rules restrict any use of the information to criminally investigate or prosecute any alcohol or drug abuse patient.[facility] CenterIn the event this information is protected by the Federal Confidentiality of Alcohol and Drug Abuse Patient Records regulations: The Federal rules restrict any use of the information to criminally investigate or prosecute any alcohol or drug abuse patient.[facility] CenterIn the event this information is protected by the Federal Confidentiality of Alcohol and Drug Abuse Patient Records regulations: The Federal rules restrict any use of the information to criminally investigate or prosecute any alcohol or drug abuse patient.[facility] CenterIn the event this information is protected by the Federal Confidentiality of Alcohol and Drug Abuse Patient Records regulations: The Federal rules restrict any use of the information to criminally investigate or prosecute any alcohol or drug abuse patient.[facility] CenterIn the event this information is protected by the Federal Confidentiality of Alcohol and Drug Abuse Patient Records regulations: The Federal rules restrict any use of the information to criminally investigate or prosecute any alcohol or drug abuse patient.[facility] CenterIn the event this information is protected by the Federal Confidentiality of Alcohol and Drug Abuse Patient Records regulations: The Federal rules restrict any use of the information to criminally investigate or prosecute any alcohol or drug abuse patient.[facility] CenterIn the event this information is protected by the Federal Confidentiality of Alcohol and Drug Abuse Patient Records regulations: The Federal rules restrict any use of the information to criminally investigate or prosecute any alcohol or drug abuse patient.[facility] CenterIn the event this information is protected by the Federal Confidentiality of Alcohol and Drug Abuse Patient Records regulations: The Federal rules restrict any use of the information to criminally investigate or prosecute any alcohol or drug abuse patient.[facility] CenterIn the event this information is protected by the Federal Confidentiality of Alcohol and Drug Abuse Patient Records regulations: The Federal rules restrict any use of the information to criminally investigate or prosecute any alcohol or drug abuse patient.[facility] CenterIn the event this information is protected by the Federal Confidentiality of Alcohol and Drug Abuse Patient Records regulations: The Federal rules restrict any use of the information to criminally investigate or prosecute any alcohol or drug abuse patient.[facility] CenterIn the event this information is protected by the Federal Confidentiality of Alcohol and Drug Abuse Patient Records regulations: The Federal rules restrict any use of the information to criminally investigate or prosecute any alcohol or drug abuse patient.[facility] CenterIn the event this information is protected by the Federal Confidentiality of Alcohol and Drug Abuse Patient Records regulations: The Federal rules restrict any use of the information to criminally investigate or prosecute any alcohol or drug abuse patient.[facility] CenterIn the event this information is protected by the Federal Confidentiality of Alcohol and Drug Abuse Patient Records regulations: The Federal rules restrict any use of the information to criminally investigate or prosecute any alcohol or drug abuse patient.[facility] CenterIn the event this information is protected by the Federal Confidentiality of Alcohol and Drug Abuse Patient Records regulations: The Federal rules restrict any use of the information to criminally investigate or prosecute any alcohol or drug abuse patient.[facility] CenterIn the event this information is protected by the Federal Confidentiality of Alcohol and Drug Abuse Patient Records regulations: The Federal rules restrict any use of the information to criminally investigate or prosecute any alcohol or drug abuse patient.[facility] CenterIn the event this information is protected by the Federal Confidentiality of Alcohol and Drug Abuse Patient Records regulations: The Federal rules restrict any use of the information to criminally investigate or prosecute any alcohol or drug abuse patient.[facility] CenterIn the event this information is protected by the Federal Confidentiality of Alcohol and Drug Abuse Patient Records regulations: The Federal rules restrict any use of the information to criminally investigate or prosecute any alcohol or drug abuse patient.[facility] CenterIn the event this information is protected by the Federal Confidentiality of Alcohol and Drug Abuse Patient Records regulations: The Federal rules restrict any use of the information to criminally investigate or prosecute any alcohol or drug abuse patient.[facility] CenterIn the event this information is protected by the Federal Confidentiality of Alcohol and Drug Abuse Patient Records regulations: The Federal rules restrict any use of the information to criminally investigate or prosecute any alcohol or drug abuse patient.[facility] CenterIn the event this information is protected by the Federal Confidentiality of Alcohol and Drug Abuse Patient Records regulations: The Federal rules restrict any use of the information to criminally investigate or prosecute any alcohol or drug abuse patient.[facility] CenterIn the event this information is protected by the Federal Confidentiality of Alcohol and Drug Abuse Patient Records regulations: The Federal rules restrict any use of the information to criminally investigate or prosecute any alcohol or drug abuse patient.[facility] CenterIn the event this information is protected by the Federal Confidentiality of Alcohol and Drug Abuse Patient Records regulations: The Federal rules restrict any use of the information to criminally investigate or prosecute any alcohol or drug abuse patient.[facility] CenterIn the event this information is protected by the Federal Confidentiality of Alcohol and Drug Abuse Patient Records regulations: The Federal rules restrict any use of the information to criminally investigate or prosecute any alcohol or drug abuse patient.[facility] CenterIn the event this information is protected by the Federal Confidentiality of Alcohol and Drug Abuse Patient Records regulations: The Federal rules restrict any use of the information to criminally investigate or prosecute any alcohol or drug abuse patient.[facility] CenterIn the event this information is protected by the Federal Confidentiality of Alcohol and Drug Abuse Patient Records regulations: The Federal rules restrict any use of the information to criminally investigate or prosecute any alcohol or drug abuse patient.[facility] CenterIn the event this information is protected by the Federal Confidentiality of Alcohol and Drug Abuse Patient Records regulations: The Federal rules restrict any use of the information to criminally investigate or prosecute any alcohol or drug abuse patient.[facility] CenterIn the event this information is protected by the Federal Confidentiality of Alcohol and Drug Abuse Patient Records regulations: The Federal rules restrict any use of the information to criminally investigate or prosecute any alcohol or drug abuse patient.[facility] CenterIn the event this information is protected by the Federal Confidentiality of Alcohol and Drug Abuse Patient Records regulations: The Federal rules restrict any use of the information to criminally investigate or prosecute any alcohol or drug abuse patient.[facility] CenterIn the event this information is protected by the Federal Confidentiality of Alcohol and Drug Abuse Patient Records regulations: The Federal rules restrict any use of the information to criminally investigate or prosecute any alcohol or drug abuse patient.[facility] CenterIn the event this information is protected by the Federal Confidentiality of Alcohol and Drug Abuse Patient Records regulations: The Federal rules restrict any use of the information to criminally investigate or prosecute any alcohol or drug abuse patient.[facility] CenterIn the event this information is protected by the Federal Confidentiality of Alcohol and Drug Abuse Patient Records regulations: The Federal rules restrict any use of the information to criminally investigate or prosecute any alcohol or drug abuse patient.[facility] CenterIn the event this information is protected by the Federal Confidentiality of Alcohol and Drug Abuse Patient Records regulations: The Federal rules restrict any use of the information to criminally investigate or prosecute any alcohol or drug abuse patient.[facility] CenterIn the event this information is protected by the Federal Confidentiality of Alcohol and Drug Abuse Patient Records regulations: The Federal rules restrict any use of the information to criminally investigate or prosecute any alcohol or drug abuse patient.[facility] CenterIn the event this information is protected by the Federal Confidentiality of Alcohol and Drug Abuse Patient Records regulations: The Federal rules restrict any use of the information to criminally investigate or prosecute any alcohol or drug abuse patient.[facility] CenterIn the event this information is protected by the Federal Confidentiality of Alcohol and Drug Abuse Patient Records regulations: The Federal rules restrict any use of the information to criminally investigate or prosecute any alcohol or drug abuse patient.[facility] CenterIn the event this information is protected by the Federal Confidentiality of Alcohol and Drug Abuse Patient Records regulations: The Federal rules restrict any use of the information to criminally investigate or prosecute any alcohol or drug abuse patient.[facility] CenterIn the event this information is protected by the Federal Confidentiality of Alcohol and Drug Abuse Patient Records regulations: The Federal rules restrict any use of the information to criminally investigate or prosecute any alcohol or drug abuse patient.[facility] CenterIn the event this information is protected by the Federal Confidentiality of Alcohol and Drug Abuse Patient Records regulations: The Federal rules restrict any use of the information to criminally investigate or prosecute any alcohol or drug abuse patient.[facility] CenterIn the event this information is protected by the Federal Confidentiality of Alcohol and Drug Abuse Patient Records regulations: The Federal rules restrict any use of the information to criminally investigate or prosecute any alcohol or drug abuse patient.[facility] CenterIn the event this information is protected by the Federal Confidentiality of Alcohol and Drug Abuse Patient Records regulations: The Federal rules restrict any use of the information to criminally investigate or prosecute any alcohol or drug abuse patient.[facility] Goals (unrecognized section and content) Goals may be documented in a n alternate sectionGoals may be documented in an alternate section FOR RECORDS PERTAINING TO PATIENTS WHO ARE OR HAVE BEEN ENROLLED IN A CHEMICAL DEPENDENCY/SUBSTANCEABUSE PROGRAM, SOME INFORMATION MAY BE OMITTED. This clinical summary was aggregated from multiple sources. Caution should be exercised in using it in the provision of clinical care. This summary normalizes information from multiple sources, and as a consequence, information in this document may materially change the coding, format and clinical context of patient data. In addition, data may be omitted in some cases. CLINICAL DECISIONS SHOULD BE BASED ON THE PRIMARY CLINICAL RECORDS. [facility] [employer] [facility]. provides no warranty or guarantee of the accuracy or completeness of information in this document.
== END | disposition home or self-care (01) ==
LOC: MRI 10:13
PROVIDERS: PCP Internal Medicine; Referring Provider Anesthesiology; Visit Provider Anesthesiology
DX: M54.16 Radiculopathy, lumbar region (principal)
CPT/HCPCS: 72148